=== PATIENT | female | born 1975 | race Caucasian/White ===

== ENCOUNTER → 2017-08-10 11:14 | Outpatient (CLI) | payer BC, SELFPAY ==
--- NOTE | 2017-08-10 11:20 | RAD_ITS ---
STUDY: X-RAY CHEST REASON FOR EXAM: Female, 42 years old. Cough. TECHNIQUE: Frontal and lateral views of the chest. COMPARISON: 01/23/2014 FINDINGS: The lungs are clear and expanded. There is no demonstrated pleural abnormality. Normal size heart. Normal mediastinum and nayeli. Normal visualized pulmonary arteries. Normal visualized aortic arch and descending thoracic aorta. Normal visualized thoracic spine. Normal visualized ribs, clavicles, and shoulders. There is no demonstrated abnormality of the visualized soft tissue structures of the upper abdomen. RAD/Chest PA and Lateral IMPRESSION: Normal x-ray examination of the chest. Electronically Signed: Rivera Young MD at 20:31 EDT , Service support ,
== END ==
PROVIDERS: Family Provider Internal Medicine; PCP Internal Medicine; Visit Provider Nurse Practitioner Gerontology
DX: R09.89 Other specified symptoms and signs involving the circulatory and respiratory systems (principal)
CPT/HCPCS: 71046

== ENCOUNTER → 2017-12-30 15:51 | Outpatient (CLI) | payer BC, SELFPAY | PROVIDERS: Family Provider Internal Medicine; PCP Internal Medicine; Visit Provider Otolaryngology | DX: J32.9 Chronic sinusitis, unspecified (principal) | CPT/HCPCS: 87070; 87077; 87186; 87205 ==

== ENCOUNTER → 2018-02-15 11:14 | Outpatient (CLI) | payer BC, SELFPAY ==
--- NOTE | 2018-02-15 11:17 | RAD_ITS ---
STUDY: X-RAY - PELVIS AND LEFT HIP REASON FOR EXAM: Female, 42 years old. Left hip pain TECHNIQUE: Radiological exam, hip, unilateral, with pelvis when performed; 2 or 3 views. COMPARISON: None. FINDINGS: There is a non-specific bowel gas pattern. Normal visualized soft tissue structures. Normal bilateral iliac wings, sacroiliac joints and visualized sacrum. Normal bilateral superior and inferior pubic rami. Normal pubic symphysis. Normal bilateral ischial tuberosities. Normal visualized femoral head. Normal acetabulum. Normal hip joint. RAD/HIP, UNI W/ Pelvis 2-3 Views IMPRESSION: Normal x-ray examination of the pelvis and hip. Electronically Signed: Sonu Fuentes DO at 11:24 EDT Tel , Service support ,
--- NOTE | 2018-02-15 11:17 | RAD_ITS ---
STUDY: X-RAY - LUMBAR SPINE REASON FOR EXAM: Female, 42 years old. Lower back pain. TECHNIQUE: 5 view(s) of the lumbar spine were obtained. COMPARISON: November 02, 2015 FINDINGS: Normal lumbar lordosis. There is no substantial scoliosis. There is a normal alignment of the vertebrae. There is multilevel endplate spondylosis of the lumbar vertebrae. Normal disc space heights. There are surgical clips within the right upper quadrant suggestive of a prior cholecystectomy. RAD/L/S Spine Min 4 Views IMPRESSION: Mild degenerative changes. Electronically Signed: Leanna Pérez MD at 20:55 EDT Tel , Service support ,
== END ==
PROVIDERS: Family Provider Internal Medicine; PCP Internal Medicine; Referring Provider Nurse Practitioner Gerontology; Visit Provider Nurse Practitioner Gerontology
DX: M54.5 Low back pain (principal); M25.552 Pain in left hip
CPT/HCPCS: 72110; 73502

== ENCOUNTER → 2018-02-25 17:39 | Outpatient (CLI) | payer BC, SELFPAY ==
--- NOTE | 2018-02-25 17:40 | MRI_ITS ---
STUDY: MRI LUMBAR SPINE WITHOUT CONTRAST REASON FOR EXAM: Female, 42 years old. Back pain and left radiculopathy. TECHNIQUE: Standardized fat and water weighted pulse sequences were obtained in the sagittal and axial planes. COMPARISON: None FINDINGS: T12-L1: Normal endplates. Normal disc height, hydration and morphology. Normal bilateral facet joints. Normal central canal and bilateral lateral recesses. Normal bilateral intervertebral neural foramina. Normal lumbar lordosis. There is no substantial scoliosis. Normal conus medullaris that terminates at the L1 level. L1-2: Normal endplates. Normal disc height, hydration and morphology. Normal bilateral facet joints. Normal central canal and bilateral lateral recesses. Normal bilateral intervertebral neural foramina. L2-3: Normal endplates. Normal disc height, hydration and morphology. Normal bilateral facet joints. Normal central canal and bilateral lateral recesses. Normal bilateral intervertebral neural foramina. L3-4: Normal endplates. Normal disc height, hydration and morphology. There is a small left inferior foraminal disc protrusion. No evidence of nerve root displacement. Normal bilateral facet joints. Normal central canal and bilateral lateral recesses. Normal bilateral intervertebral neural foramina. L4-5: Normal endplates. Normal disc height, hydration and morphology. Normal bilateral facet joints. Normal central canal and bilateral lateral recesses. Normal bilateral intervertebral neural foramina. L5-S1: Normal endplates. Normal disc height, hydration and morphology. Normal bilateral facet joints. Normal central canal and bilateral lateral recesses. Normal bilateral intervertebral neural foramina. Normal visualized sacral ala. Normal visualized paraspinous soft tissue structures. MRI/Spine Lumbar (Routine) IMPRESSION: 1. Small L3-4 left foraminal disc protrusion without obvious nerve root displacement. Otherwise normal study. Electronically Signed: Karen Lagos MD at 18:44 EDT Tel , Service support ,
== END ==
PROVIDERS: Family Provider Internal Medicine; PCP Internal Medicine; Referring Provider Internal Medicine; Visit Provider Internal Medicine
DX: M54.16 Radiculopathy, lumbar region (principal)
CPT/HCPCS: 72148

== ENCOUNTER → 2018-05-21 16:45 | Outpatient (CLI) | payer BC, SELFPAY ==
--- OUTSIDE RECORDS SUMMARY | 2018-07-26 07:58 | XMS RPT_ITS | Continuity of Care Document ---
:1975 Author Organization [facility] Address [address] [facility] [address] [place] [address] Phone Care Team Providers Name Role Phone Nancy Lucas DO Unavailable Physical Therapy, [facility] Unavailable Matthew Becker MD Unavailable Rony Lucas Unavailable Cruz Kumari Unavailable Unavailable Long LOFT RIGGER, Sailaja Myrick Unavailable Unavailable Slarb LOFT RIGGER, Nona Unavailable Unavailable Yakelin MCDONALD, Suzy Licona Unavailable Susan Acevedo Unavailable Unavailable Unavailable Unavailable Problems Name Dates Details Abnormal lung sounds (R09.89, 786.7) Status: Active Abnormal lung sounds (R09.89, 786.7) Status: Active Abortions/Miscarriages Comments: 1. Status: Active Acid reflux (K21.9, 530.81) Status: Active Acute asthma exacerbation (Renamed from Asthma with acute exacerbation) (J45.901, 493.92) Status: Active Allergic rhinitis (J30.9, 477.9) Status: Active Blurred vision (H53.8, 368.8) Status: Active BMI 40.0-44.9, adult (Z68.41, V85.41) Status: Active Breast cancer screening (Z12.39, V76.10) Status: Active Section Comments: 1998 Status: Active Chest pain at rest (R07.9, 786.50) Comments: worse with cough, think asthma related Status: Active Cough (R05, 786.2) Status: Active Cough (R05, 786.2) Status: Active Cough (R05, 786.2) Status: Active Decreased range of motion of left lower extremity (M25.662, 719.56) Status: Active Dehydration, moderate (E86.0, 276.51) Status: Active Electrical shock sensation (R20.8, 782.0) Status: Active FAMILY HISTORY OF DIABETES MELLITUS (Z83.3, V18.0) Status: Active Fibromyalgia (M79.7, 729.1) Status: Active Gastroenteritis (K52.9, 558.9) Status: Active Inflammatory polyarthritis (M06.4, 714.9) Comments: dr lepe is rheum holding methotrexate and embrel Status: Active Left hip pain (M25.552, 719.45) Status: Active Leg length discrepancy (M21.70, 736.81) Comments: Left side is shorter Status: Active Low back pain potentially associated with radiculopathy (M54.5, 724.2) Status: Active Lower back pain (M54.5, 724.2) Status: Active Need for prophylactic vaccination and inoculation against influenza (Renamed from Need for immunization against influenza) (Z23, V04.81) Status: Active Neuropathy (G62.9, 355.9) Status: Active Nonsmoker (Z78.9, V49.89) Status: Active 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 Status: Active RA Status: Active Radiculopathy, lumbar region (M54.16, 724.4) Status: Active Recurrent sinus infections (J32.9, 473.9) Status: Active SCREENING FOR HYPERLIPIDEMIA (Renamed from Encounter for screening for lipoid disorders) (Z13.220, V77.91) Status: Active Shortness of breath at rest (R06.02, 786.05) Status: Active Sinus pressure (J34.89, 478.19) Status: Active Sinusitis, acute (J01.90, 461.9) Status: Active SOB (shortness of breath) (R06.02, 786.05) Status: Active Sore throat (J02.9, 462) Status: Active TMJ (dislocation of temporomandibular joint) (S03.00XA, 830.0) Status: Active TMJ (temporomandibular joint disorder) (M26.609, 524.60) Comments: uses mouth mame but chews thru Status: Active Unspecified Diagnosis Status: Active Unspecified Diagnosis Status: Active Vaginal Delivery Comments: Status: Active Vomiting and diarrhea (R11.10, 787.03) Status: Active Wheezing (Renamed from Asthmatic breathing) (R06.2, 786.07) Status: Active Medications Name Dates Details SERGE ALLERGY, 180MG (Oral Tablet) 1 (one) Tablet Tablet qd for 30 days Refills: 0 Ordered:12-Jan-2014 Jenelle Castellon LPN Start : 31-Aug-2013 Active Benzonatate 200 MG Oral Capsule 1 (one) Capsule Capsule PO TID PRN for 0 days Quantity: 21 {Capsule} Refills: 0 Ordered:11-Aug-2017 Sindi Slater Start : 11-Aug-2017 Active Gabapentin 300 MG Oral Capsule 1 (one) Capsule take daily x 3 days then bid for 0 days Quantity: 60 {Capsule} Refills: 0 Ordered:23-Feb-2018 Suzy Hamlin CNP Start : 23-Feb-2018 Active Comments:neuropathic pain G62.9 Oarrs run Sixty Levocetirizine Dihydrochloride 5 MG Oral Tablet 1 (one) Tablet qd for 0 days Quantity: 90 {Tablet} Refills: 3 Ordered:06-Apr-2017 Rachele Lucas DO, DO, Kathleen Start : 06-Apr-2017 Active Medrol 4 MG Oral Tablet Therapy Pack 1 (one) Milligram Milligram TAD for 0 days Quantity: 1 {Package} Refills: 0 Ordered:16-Feb-2018 Sailaja Allan LPN Start : 16-Feb-2018 Active Comments:take with food Methotrexate Sodium 2.5 MG Oral Tablet 6 Tablet once a week for 30 days Quantity: 24 {Tablet} Refills: 3 Ordered:14-Dec-2017 Suzy Hamlin CNP Start : 14-Dec-2017 Active Omeprazole 40 MG Oral Capsule Delayed Release 1 (one) Capsule DR qd for 0 days Quantity: 90 {Capsule} Refills: 2 Ordered:26-Aug-2017 Lance Rachele CAMARA DO, Kathleen Start : 26-Aug-2017 Active Omeprazole 40 MG Oral Capsule Delayed Release 1 (one) Capsule DR qd for 90 days Quantity: 90 {Capsule} Refills: 3 Ordered:26-Aug-2017 Lance CAMARARachele DO, Kathleen Start : 26-Aug-2017 Active PredniSONE 10 MG Oral Tablet 3 (three) Tablet pills for 3 days 2 for 3 days 1 for 3 day with food am for 0 days Quantity: 18 {Tablet} Refills: 0 Ordered:23-Feb-2018 Yakelin HARRYSuzy Start : 23-Feb-2018 Active Comments:with food Augmentin 875-125 MG Oral Tablet 1 (one) Tablet bid for 14 days Quantity: 28 {Tablet} Refills: 0 Ordered:14-Dec-2017 Yakelin HARRYSuzy Start : 14-Dec-2017 End : 28-Dec-2017 Inactive CYMBALTA, 60MG (Oral Capsule Delayed Release Particles) 1 (one) Capsule DR Part Capsule DR Part qd for 30 days Quantity: 30 {Capsule} Refills: 0 Ordered:20-Feb-2015 Karen Madrid MD Start : 02-Oct-2014 End : 01-Nov-2014 Inactive Comments:per vellanki Flonase 50 MCG/ACT Nasal Suspension 2 (two) Puff Puff daily for 0 days Quantity: 1 {Bottle} Refills: 0 Ordered:30-Mar-2017 Nona Stock LPN Start : 03-Feb-2014 End : 30-Mar-2017 Inactive Folic Acid 1 MG Oral Tablet 1 (one) Tablet Tablet qd for 30 days Refills: 0 Ordered:05-Aug-2017 Roserb BERNARD Nona Start : 31-Aug-2013 End : 05-Aug-2017 Inactive GABAPENTIN, 100MG (Oral Capsule) 1 (one) Capsule Capsule bid for 30 days Quantity: 30 {Capsule} Refills: 0 Ordered:20-Feb-2015 Karen Madrid MD Start : 02-Oct-2014 End : 01-Nov-2014 Inactive Comments:per basali LEVOFLOXACIN, 500MG (Oral Tablet) 1 (one) Tablet Tablet qd for 0 days Quantity: 10 {Tablet} Refills: 0 Ordered:20-Feb-2015 STEPHANIE Mahoney Start : 23-Jan-2014 End : 20-Feb-2015 Inactive Methotrexate 2.5 MG Oral Tablet 8 Tablet Tablet q week for 30 days Refills: 0 Ordered:05-Aug-2017 Nona Stock LPN Start : 31-Aug-2013 End : 05-Aug-2017 Inactive Mobic 15 MG Oral Tablet 1 (one) Tablet Tablet bid for 30 days Refills: 0 Ordered:05-Aug-2017 Nona Stock LPN Start : 02-Nov-2015 End : 05-Aug-2017 Inactive Neurontin 300 MG Oral Capsule 1 (one) Capsule Capsule qhs for 5 days then bid for 0 days Quantity: 60 {Capsule} Refills: 3 Ordered:30-Mar-2017 Nona Stock LPN Start : 02-Nov-2015 End : 30-Mar-2017 Inactive Orencia ClickJect 125 MG/ML Subcutaneous Solution Auto-injector 1 (one) Milliliter once a week for 30 days Quantity: 4 {Milliliter} Refills: 3 Ordered:23-Feb-2018 Suzy Hamlin CNP Start : 14-Dec-2017 End : 23-Feb-2018 Inactive OXYCODONE-ACETAMINOPHEN, 5-325MG (Oral Tablet) 1 (one) Tablet Tablet bid for 30 days Quantity: 30 {Tablet} Refills: 0 Ordered:20-Feb-2015 Karen Madrid MD Start : 02-Oct-2014 End : 01-Nov-2014 Inactive Comments:per basali Singulair 10 MG Oral Tablet 1 (one) Tablet Tablet qd for 0 days Quantity: 90 {Tablet} Refills: 0 Ordered:05-Aug-2017 Nona Stock LPN Start : 11-Oct-2014 End : 05-Aug-2017 Inactive Comments:07-14-14 no refills patient needs an appointment for check up TRAMADOL HCL ER, 100MG (Oral Tablet Extended Release 24 Hour) 1 (one) Tablet ER 24HR Tablet ER 24HR tid/prn for 30 days Refills: 0 Ordered:02-Nov-2015 Jenelle Castellon LPN Start : 12-Jan-2014 End : 02-Nov-2015 Inactive Xeljanz 5 MG Oral Tablet 1 (one) Tablet bid for 30 days Quantity: 30 {Tablet} Refills: 0 Ordered:30-Mar-2017 Rachele Lucas DO, DO, Kathleen Start : 30-Mar-2017 End : 29-Apr-2017 Inactive Zithromax Z-Forrest 250 MG Oral Tablet 1 (one) Tablet TAD for 0 days Quantity: 1 {Package} Refills: 0 Ordered:10-Aug-2017 Susan Acevedo Start : 05-Aug-2017 End : 10-Aug-2017 Inactive ENBREL, 50MG/ML (Subcutaneous Solution Prefilled Syringe) 1 (one) Solution Solution q week for 30 days Refills: 0 Ordered:05-Jun-2015 Montrell WAGNERNona Start : 12-Jan-2014 End : 05-Jun-2015 Discontinued ProAir HFA 108 (90 Base) MCG/ACT Inhalation Aerosol Solution 2 (two) Puff tid for 0 days Quantity: 1 {Inhaler} Refills: 0 Ordered:14-Dec-2017 Sindi Slater Start : 05-Aug-2017 End : 14-Dec-2017 Discontinued Allergies and Adverse Reactions Name Dates Details Codeine/Codeine Derivatives (Allergy) Status: Active Comments: itch Past Medical History Name Dates Details BMI 40.0-44.9, adult (Z68.41, V85.41) Status: Inactive as of 06-May-2017 Breast pain (N64.4, 611.71) Comments: primary etiology? vs fibro related? Status: Inactive as of 02-Nov-2015 Flu-like symptoms (R68.89, 780.99) Status: Inactive as of 06-May-2017 Flu-like symptoms (R68.89, 780.99) Status: Inactive as of 02-Nov-2015 Hives (L50.9, 708.9) Comments: as long as takes antihistamine Status: Inactive as of 02-Nov-2015 Sciatica of left side (M54.32, 724.3) Status: Inactive as of 05-Aug-2017 Unspecified bacterial pneumonia (J15.9, 482.9) Status: Inactive as of 14-Jul-2014 Procedures Procedure Dates Details Annual Eye Exam Completed Comments: 2 yrs Delivery Completed Cholecystectomy Completed Colonoscopy, Screening Completed Comments: 5yrs Mammogram, Screening Completed Comments: 10yrs Pap Smear Completed Comments: 3 yrs Rhino and sinoplasty Completed Comments: 06/2017 dr felix Date Value Details 15-Feb-2018 HIP, UNI W/ Pelvis 2-3 Views Result: Comments: See Note; NOTES: [facility] Imaging Services [address] [place] [address] HIP, UNI W/ Pelvis 2-3 Views MR#: [id number] Acct: [id number] Name: MANDA JEFFERS Rep #: [id number] : 1975 F 42 From: Sonu Fuentes DO PCP: Nancy Lucas DO Status: REG CLI Study: HIP, UNI W/ Pelvis 2-3 Views Date of Exam: 02/15/18 Exam# [id number] Ordering Dr: Jenelle London STUDY: X-RAY - PELVIS AND LEFT HIP REASON FOR EXAM: Female, 42 years old. Left hip pain TECHNIQUE: Radiological exam, hip, unilateral, with pelvis when performed; 2 or 3 views. COMPARISON: None. ____ FINDINGS: There is a non-specific bowel gas pattern. Normal visualized soft tissue structures. Normal bilateral iliac wings, sacroiliac joints and visualized sacrum. No rmal bilateral superior and inferior pubic rami. Normal pubic symphysis. Normal bilateral ischial tuberosities. Normal visualized femoral head. Normal acetabulum. Normal hip joint. RAD/HIP, UNI W/ Pelvis 2-3 Views IMPRESSION: Normal x-ray examination of the pelvis and hip. Electronically Signed: Sonu Fuentes DO at 11:24 EDT Tel , Service support , CC: NOLA London; Nancy Lucas DO Program Lead: Signed 15-Feb-2018 L/S Spine Min 4 Views Result: Comments: See Note; NOTES: [facility] Imaging Services [address] [place] [address] L/S Spine Min 4 Views MR#: [id number] Acct: [id number] Name: MANDA JEFFERS Rep #: [id number] : 1975 F 42 From: Leanna Pérez MD PCP: Nancy Lucas DO Status: REG CLI Study: L/S Spine Min 4 Views Date of Exam: 02/15/18 Exam# [id number] Ordering Dr: Jenelle London STUDY: X-RA Y - LUMBAR SPINE REASON FOR EXAM: Female, 42 years old. Lower back pain. TECHNIQUE: 5 view(s) of the lumbar spine were obtained. COMPARISON: November 02, 2015 FINDINGS : Normal lumbar lordosis. There is no substantial scoliosis. There is a normal alignment of the vertebrae. There is multilevel endplate spondylosis of the lumbar vertebrae. Normal disc space heights. There are surgical clips within the right upper quadrant suggestive of a prior cholecystectomy. RAD/L/S Spine Min 4 Views IMPRESSION: Mild degene rative changes. Electronically Signed: Leanna Pérez MD at 20:55 EDT Tel , Service support , CC: NOLA London; Nancy Lucas DO Program Lead: Signed 10-Aug-2017 Chest PA and Lateral Result: Comments: See Note; NOTES: [facility] Imaging Services [address] [place] [address] Chest PA and Lateral MR#: [id number] Acct: [id number] Name: MANDA JEFFERS Rep #: [id number] : 1975 F 42 From: Rivera Young MD PCP: Nancy Lucas DO Status: REG CLI Study: Chest PA and Lateral Date of Exam: 08/10/17 Exam# [id number] Ordering Dr: Jenelle London STUDY: X-R AY CHEST REASON FOR EXAM: Female, 42 years old. Cough. TECHNIQUE: Frontal and lateral views of the chest. COMPARISON: 01/23/2014 FINDINGS: The lungs are clear and expanded. There is no demonstrated pleural abnormality. Normal size heart. Normal mediastinum and nayeli. Normal visualized pulmonary arteries. Normal visualized aortic arch and descending thoracic aort a. Normal visualized thoracic spine. Normal visualized ribs, clavicles, and shoulders. There is no demonstrated abnormality of the visualized soft tissue structures of the upper abdomen. RAD/Chest PA and Lateral IMPRESSION: Normal x-ray examination of the chest. Electronically Signed: Rivera Young MD at 20:31 EDT Tel , Service support , CC: NOLA [place]; Nancy Lucas DO Program Lead: Signed 14-Feb-2016 CTA Chest W/WO Contrast Result: Comments: See Note; NOTES: [facility] Imaging Services [address] [place] [id number] [place] [address] 4d CTA Chest W/WO Contrast MR#: [id number] Acct: [id number] Name: MANDA JEFFERS Rep #: [id number] : 1975 F 40 From: Chele Kulkarni DO PCP: Nancy Lucas DO Status: REG CLI Study: CTA Chest W/WO Contrast Date of Exam: 02/14/16 Exam# [id number] Ordering Dr: Nancy Lucas DO STUDY: CTA CHEST REASON FOR EXAM: Female, 40 years old. Shortness of breath since last night. RADIATION DOSAGE (If Supplied By Facility): CTDIvol = ( 13.29 ) mGy, DLP = ( 762.64 ) mGycm TECHNIQUE : The examination was performed with the intravenous administration of 100 ml of Isovue 370 contrast material. Post-processing of the angiographic images was performed, with multiplanar reformation and 3D reconstruction. Individualized dose optimization techniques were used for this CT. COMPARISON: Chest, January 23, 2014. FINDINGS: Normal enhancement of the m ain pulmonary artery and right and left pulmonary arteries. Normal enhancement of the bilateral peripheral pulmonary arteries. There is no demonstrated pulmonary embolism. Normal thoracic aorta and vis ualized great vessels. There is no demonstrated aortic dissection. Normal heart and pericardium. Normal mediastinum. Normal hilar regions. Normal visualized trachea and bronchi. The lungs are well e xpanded. Normal pulmonary parenchyma. Normal pleura. Normal chest wall structures. Normal osseous structures. Normal visualized upper abdomen. 025 CT/CTA Chest W/WO Contrast IMPRESSION: Normal CTA chest examination, without a demonstrated pulmonary embolism or arterial dissection. Electronically Signed: Chele Kulkarni DO at 13:32 EDT Tel [phone], Service support [phone], CC: Nancy Lucas DO Program Lead: Signed 02-Nov-2015 Lumbar Spine 2 or 3 Views Result: Comments: See Note; NOTES: [facility] Imaging Services [address] [place] [address] [place] 4d Lumbar Spine 2 or 3 Views MR#: [id number] Acct: [id number] Name: Alana LOPEZMANDA WARE Elen Rep #: [id number] : 1975 F 40 From: Lubna Husain MD PCP: Nancy Lucas DO Status: REG CLI Study: Lumbar Spine 2 or 3 Views Date of Exam: 11/02/15 Exam# [id number] Ordering Dr: Nancy Lucas DO STUDY: X-RAY - LUMBAR SPINE REASON FOR EXAM: Female, 40 years old. Twisted back with exercise in 2 weeks ago left-sided low back pain TECHNIQUE: 3 view(s) of the lumbar spi ne were obtained. COMPARISON: None FINDINGS: Normal lumbar lordosis. There is no substantial scoliosis. There is a normal alignment of the vertebrae. There i s mild multilevel spondylosis. The disc are relatively maintained. There are surgical clips in right upper quadrant status post cholecystectomy. There is no apparent acute loss of height or alignment. There is visualized degenerative change in the bilateral SI joints. There is abundant stool in the colon. IMPRESSION: Degenerative change in the lumbar spine. No evidence of an acute fracture. Electronically Signed: Lubna Husain MD at 16:25 EDT Tel , Service support [phone], RAD/Lumba r Spine 2 or 3 Views IMPRESSION: Degenerative change in the lumbar spine. No evidence of an acute fracture. Electronically Signed: Lubna Husain MD at 16:25 EDT Tel , Serv ice support [phone], CC: Nancy Lucas DO Program Lead: Signed 10-Oct-2014 Knee 4 or More Views Result: Comments: See Note; NOTES: [facility] Imaging Services [address] [place], [place] [id number] Radiology Report MR#: [id number] Acct: [id number] Name: MANDA JEFFERS Rep #: [id number] : 1975 F 39 From: Amarjit Patel MD PCP: Nancy Lucas DO Status: REG CLI Study: Knee 4 or More Views Date of Exam: 10/10/14 Exam# [id number] Ordering Dr: Georgette Kerr MD STUDY: X-RAY - LEFT KNEE REASON FOR EXAM: Female, 39 years old. Pain. TECHNIQUE: 4 view(s) of the knee. COMPARISON: None. FINDINGS: Normal visualized distal femur. Normal visualized proximal tibia and fibula. Normal proximal tibiofibular articulation. There is mild degenerative arthrosis of the medial femorotibial compartment. Normal lateral femorotibi al compartment. Normal patellofemoral articulation. The soft tissue structures are unremarkable. IMPRESSION: Degenerative arthrosis. Electronically Signed: Amarjit Patel MD at 16:09 EDT Tel [phone], Service support [phone], RAD/Knee 4 or More Views IMPRESSION: Degenerative arthrosis. El ectronically Signed: Amarjit Patel MD at 16:09 EDT Tel [phone], Service support [phone], CC: Nancy Lucas DO; Georgette Kerr MD Program Lead: Signed 10-Oct-2014 Knee 4 or More Views Result: Comments: See Note; NOTES: [facility] Imaging Services [address] [place] [address] Radiology Report MR#: [id number] Acct: [id number] Name: MANDA JEFFERS Rep #: [id number] : 1975 F 39 From: Amarjit Patel MD PCP: Nancy Lucas DO Status: REG CLI Study: Knee 4 or More Views Date of Exam: 10/10/14 Exam# [id number] Ordering Dr: Georgette Kerr MD STUDY: X-RAY - RIGHT KNEE REASON FOR EXAM: Female, 39 years old. Knee pain. TECHNIQUE: 4 view(s) of the knee. COMPARISON: None. FINDINGS: Normal visualized distal femur. Normal visualized proximal tibia and fibula. Normal proximal tibiofibular articulation. Normal medial femorotibial compartment. Normal lateral femorotibial compartment. Normal patellof emoral articulation. The soft tissue structures are unremarkable. IMPRESSION: Normal x-ray examination of the knee. Electronically Signed: Amarjit Patel MD at 16:09 EDT Tel [phone], Service support [phone], RAD/Knee 4 or More Views IMPRESSION: Normal x-ray examination of the knee. Electr onically Signed: Amarjit Patel MD at 16:09 EDT Tel [phone], Service support [phone], CC: Nancy Lucas DO; Georgette Kerr MD Program Lead: Signed 09-Oct-2014 Brain W/WO Contrast Result: Comments: See Note; NOTES: [facility] Imaging Services [address] [place] [address] MRI Report MR#: [id number] Acct: [id number] Name: MANDA JEFFERS Rep #: [id number] : 1975 F 39 From: Kel Vasquez DO PCP: Nancy Lucas DO Status: REG CLI Study: Brain W/WO Contrast Date of Exam: 10/09/14 Exam# [id number] Ordering Dr: Nancy Lucas DO STUDY : MRI BRAIN WITH AND WITHOUT CONTRAST REASON FOR EXAM: Female, 39 years old. The patient presents with a history of headaches with full-body neuropathy with reported vision abnorma lities. TECHNIQUE: The following pulse sequences were obtained: Sagittal: T1; axial: T1 pre-and postcontrast, T2, FLAIR, DWI; coronal: T1 postcontrast, T2. 10 ml of Gadavist contrast material was ad ministered intravenously for the contrast portion of the examination. COMPARISON: None. FINDINGS: Normal size of the ventricles and extra-axial spaces for the patient's age. Normal white matter tracts of the supratentorial brain. There is no evidence for recent intracranial ischemia or other cause of cytotoxic edema on diffusion weighted imaging (DWI). The re are no demyelinating plagues of the supratentorial brain, brainstem or cerebellum. There are no findings suspicious for multiple sclerosis (MS). Normal bilateral basal ganglia. Normal thalami. Th ere is no extra-axial fluid accumulation. Normal flow voids within the major intracranial circulation suggesting patency by spin echo criteria. Normal venous enhancement. There is no enhancing intr a-axial or extra-axial abnormality. There is enlargement of the sella turcica with increased CSF within the sella and flattening of the pituitary gland consistent with an empty sellar syndr ome (sagittal T1 series 3, image 12).. Normal infundibular stalk, hypothalamus, and optic chiasm. Normal tectal plate and pineal gland. Normal midbrain, mekhi and medulla. There is 4 mm of t onsillar ectopia of the right cerebellar hemisphere with 2 mm of tonsillar ectopia of the left cerebellar tonsil (sagittal T1 series 3, image 12 and 13). There is no distortion brainstem cervical cor d junction. The right cerebellar tonsillar ectopia is at the upper limits of normal. Normal basal cisterns. Normal bilateral temporal bones. Normal bilateral internal auditory canals. No demonstrat ed orbital abnormality, within the constraints of a routine brain study. Normal visualized paranasal sinuses. Normal calvarium and skull base. Normal visualized soft tissue structures. Normal visualiz ed upper cervical spine. IMPRESSION: 1. Normal MRI the brain. 2. No demonstrated demyelinating process. 3. 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 Electronically Signed: Kel Vasquez DO at 11:41 EDT Tel , Service support [phone], CC: Nancy Lucas DO Program Lead: Signed 08-Jun-2014 Spine Cervical (Routine) Result: Comments: See Note; NOTES: [facility] Imaging Services [address] [place] [id number] MRI Report MR#: [id number] Acct: [id number] Name: HEIDYMANDA Elen Rep #: [id number] OB: 1975 F 38 From: Vladimir Llamas MD PCP: Nancy Lucas DO Status: REG CLI Study: Spine Cervical (Routine) Date of Exam: 06/08/14 Exam# [id number] Ordering Dr: Henrique Cadena MD STUDY: MR I CERVICAL SPINE WITHOUT CONTRAST REASON FOR EXAM: Female, 38 years old. Chronic neck and rt arm pain, hx RA TECHNIQUE: Standardized fat and water weighted pulse sequences were obtained in the sag ittal and axial planes. COMPARISON: Prior x-rays of the cervical spine on 05-29-14 FINDINGS: Normal foramen magnum and brainstem-cervical cord junction. Normal craniovertebral junction. Normal anterior atlantoaxial articulation. Normal odontoid process. There is straightening of the normal cervical lordosis. Normal vertebral bodies and posterior osseous e lements. C2-3: Normal endplates. Normal disc height, signal and morphology. Normal central canal and intervertebral neural foramina. C3-4: Normal endplates. Normal disc height, signal and morpholog y. Normal central canal and intervertebral neural foramina. C4-5: Normal endplates. Normal disc height, signal and morphology. Normal central canal and intervertebral neural foramina. C5-6: Normal endplates. There is a moderate annular bulge. Normal central canal and intervertebral neural foramina. C6-7: Normal endplates. Normal disc height, signal and morphology. Normal central canal and in tervertebral neural foramina. C7-T1: Normal endplates. Normal disc height, signal and morphology. Normal central canal and intervertebral neural foramina except for right perineural cyst. Normal c ervical cord. Normal visualized soft tissue structures. IMPRESSION: Straightening of the normal lordosis. C5-6 moderate annular bulge. C7-T1 right perineura l cyst Electronically Signed: Vladimir Llamas MD, FACR at 20:18 EST , Service support [phone], CC: Henrique Cadena MD; Nancy Lucas DO Program Lead: Signed 29-May-2014 Cerv Spine 2 or 3 Views Result: Comments: See Note; NOTES: [facility] Imaging Services [address] [place] [address] Radiology Report MR#: [id number] Acct: [id number] Name: MANDA JEFFERS Rep #: [id number] : 1975 F 38 From: Kaycee Suero MD PCP: Nancy Lucas DO Status: REG CLI Study: Cerv Spine 2 or 3 Views Date of Exam: 05/29/14 Exam# [id number] Ordering Dr: Henrique Cadena MD STUDY: X-RAY - CERVICAL SPINE REASON FOR EXAM: Female, 38 years old chronic neck pain. TECHNIQUE: 4 view(s) of the cervical spine were obtained. COMPARISON: None __ FINDINGS: Normal anterior atlantoaxial articulation. Normal odontoid process. There is straightening of the normal cervical lordosis. Normal vertebral bodies and endplates. Normal disc space he ights. Normal visualized intervertebral neuroforamina. The soft tissue structures are unremarkable. IMPRESSION: No acute fracture or subluxation in the cervica l spine. Electronically Signed: Kaycee Suero MD at 22:44 EST Tel , Service support [phone], CC: Henrique Cadena MD; Nancy Lucas DO Program Lead: Signed 23-Jan-2014 Chest PA and Lateral Result: Comments: See Note; NOTES: [facility] Imaging Services [address] [place] [address] Radiology Report MR#: [id number] Acct: [id number] Name: MANDA JEFFERS Rep #: [id number] : 1975 F 38 From: Amarjit Patel MD PCP: Nancy Lucas DO Status: REG CLI Study: Chest PA and Lateral Date of Exam: 01/23/14 Exam# [id number] Ordering Dr: Micki Garcia DO STUDY : X-RAY CHEST REASON FOR EXAM: Female, 38 years old. 9 day history of cough. TECHNIQUE: PA and lateral views of the chest. COMPARISON: Comparison is made with prior study dated October 12, 2013. ___ FINDINGS: Calcified old granulomatous disease. There is no demonstrated pleural abnormality. Normal size heart. Normal mediastinum and nayeli. Normal visualized pu lmonary arteries. Normal visualized aortic arch and descending thoracic aorta. Normal visualized thoracic spine. Normal visualized ribs, clavicles, and shoulders. There is no demonstrated abnormal ity of the visualized soft tissue structures of the upper abdomen. IMPRESSION: Normal x-ray examination of the chest. Electronically Signed: Amarjit Coronel i, MD at 14:51 EDT Tel [phone], Service support [phone], CC: Micki Garcia DO; Nancy Lucas DO Program Lead: Signed 12-Jan-2014 Jewell Chappell Digital & CAD Result: Comments: See Note; NOTES: [facility] Imaging Services [address] [place] [id number] Breast Imaging Report MR#: [id number] Acct: [id number] Name: MANDA JEFFERS Rep #: [id number] : 1975 F 38 From: Amarjit Patel MD PCP: Nancy Lucas DO Status: REG CLI Exam# [id number] Ordering Dr: Nancy Lucas DO MAMMOGRAPHY - BILATERAL SCREENING REASON FOR EXAM: Female, 38 years old. Routine annual screening examination. PERTINENT HISTORY: Non-contributory. TECHNIQUE: Digital examination. Mediolateral oblique (MLO) and craniocaudad (CC) views of perico th breasts were obtained. CAD: CAD was performed on this study. COMPARISON: None. Baseline examination. FINDINGS: Breast Composition: There are scattered areas of fibroglandular density. There are no dominant masses or suspicious calcifications. There is asymmetry of breast tissue where more breast tissue is seen in the right breast as compared to the lef t side. No other significant abnormalities are identified. IMPRESSION: Negative screening mammogram. Yearly followup recommended. (A) ASSESSMENT CATEGORY: BIRADS Category 2: Benign finding(s). A letter regarding these results will be sent to the patient by the facility within 30 days. Approximately 10% of breast cance rs are not detected by mammography. A normal mammogram should not delay biopsy of a clinically suspicious abnormality. Electronically Signed: Amarjit Patel MD at 9:46 EDT Tel [phone], Service support [phone], CC: Nancy Lucas DO Program Lead: Signed Family History Unknown Family Member Name Dates Details Migraine Headache Comments: Mother. Status: Active RA Comments: Sister. Status: Active Social History Name Dates Details Caffeine Use Comments: qd Status: Active Exercise History: Exercises occasionally. Status: Active Living Situation: Lives with spouse. Status: Active No Drug Use Status: Active Non Drinker/No Alcohol Use Status: Active Number of Child (age 0-17) Dependents: 2. Status: Active Pets/Animals: Dog. Status: Active Tobacco use: Former smoker. Status: Active Smoking Status Name Dates Details Former smoker Vital Signs Date Test Result Details [id number]-Nil-[id number]:37 Comments: pain 6-7 on avg and up to 8 - high pain tolerance Temperature 97.5 f Comments: Method: Temporal Pulse 91 /min Comments: Pattern: Regular Respiration Rate 16 /min Comments: Pattern: Unlabored O2 SAT 98 % Comments: Room air BP Systolic 134 mm[Hg] Comments: Patient Position: Sitting; Cuff Location: Left Arm; Cuff Size: Standard BP Diastolic 76 mm[Hg] Comments: Patient Position: Sitting; Cuff Location: Left Arm; Cuff Size: Standard Weight 242.5 lb Height 62 in Body Mass Index Calculated 44.35 kg/m2 Body Surface Area Calculated 2.07 m2 :43 Comments: Pulse recheck 113-in pain Temperature 98.9 f Comments: Method: Temporal Pulse 138 /min Comments: Pattern: Regular Respiration Rate 16 /min Comments: Pattern: Unlabored O2 SAT 98 % Comments: Room air BP Systolic 142 mm[Hg] Comments: Patient Position: Sitting; Cuff Location: Left Arm; Cuff Size: Standard BP Diastolic 76 mm[Hg] Comments: Patient Position: Sitting; Cuff Location: Left Arm; Cuff Size: Standard Weight 242.5 lb Height 62 in Body Mass Index Calculated 44.35 kg/m2 Body Surface Area Calculated 2.07 m2 :04 Temperature 98.8 f Comments: Method: Temporal Pulse 73 /min Comments: Pattern: Regular Respiration Rate 20 /min Comments: Pattern: Unlabored O2 SAT 97 % Comments: Room air BP Systolic 138 mm[Hg] Comments: Patient Position: Sitting; Cuff Location: Left Arm; Cuff Size: Standard BP Diastolic 86 mm[Hg] Comments: Patient Position: Sitting; Cuff Location: Left Arm; Cuff Size: Standard Weight 242.5 lb Height 62 in Body Mass Index Calculated 44.35 kg/m2 Body Surface Area Calculated 2.07 m2 :20 Temperature 97.5 f Pulse 91 /min Comments: Pattern: Regular Respiration Rate 18 /min Comments: Pattern: Unlabored O2 SAT 96 % Comments: Room air BP Systolic 140 mm[Hg] Comments: Patient Position: Sitting; Cuff Location: Left Arm; Cuff Size: Standard BP Diastolic 84 mm[Hg] Comments: Patient Position: Sitting; Cuff Location: Left Arm; Cuff Size: Standard Weight 234 lb Height 63 in Body Mass Index Calculated 41.45 kg/m2 Body Surface Area Calculated 2.07 m2 :39 Temperature 98.3 f Comments: Method: Temporal Pulse 85 /min Comments: Pattern: Regular Respiration Rate 16 /min Comments: Pattern: Unlabored O2 SAT 98 % Comments: Room air BP Systolic 115 mm[Hg] Comments: Patient Position: Sitting; Cuff Location: Left Arm; Cuff Size: Standard BP Diastolic 70 mm[Hg] Comments: Patient Position: Sitting; Cuff Location: Left Arm; Cuff Size: Standard Weight 234 lb Height 63 in Body Mass Index Calculated 41.45 kg/m2 Body Surface Area Calculated 2.07 m2 :02 Temperature 98.2 f Pulse 68 /min Comments: Pattern: Regular Respiration Rate 17 /min Comments: Pattern: Unlabored O2 SAT 98 % Comments: Room air BP Systolic 132 mm[Hg] Comments: Patient Position: Sitting; Cuff Location: Left Arm; Cuff Size: Standard BP Diastolic 88 mm[Hg] Comments: Patient Position: Sitting; Cuff Location: Left Arm; Cuff Size: Standard Weight 234 lb Height 63 in Body Mass Index Calculated 41.45 kg/m2 Body Surface Area Calculated 2.07 m2 :03 Temperature 97.8 f Pulse 88 /min Comments: Pattern: Regular Respiration Rate 16 /min Comments: Pattern: Unlabored O2 SAT 98 % Comments: Room air BP Systolic 132 mm[Hg] Comments: Patient Position: Sitting; Cuff Location: Left Arm; Cuff Size: Standard BP Diastolic 84 mm[Hg] Comments: Patient Position: Sitting; Cuff Location: Left Arm; Cuff Size: Standard Weight 234 lb Height 63 in Body Mass Index Calculated 41.45 kg/m2 Body Surface Area Calculated 2.07 m2 :07 Temperature 97.8 f Pulse 112 /min Comments: Pattern: Regular Respiration Rate 16 /min Comments: Pattern: Unlabored O2 SAT 97 % Comments: Room air BP Systolic 132 mm[Hg] Comments: Patient Position: Sitting; Cuff Location: Left Arm; Cuff Size: Standard BP Diastolic 84 mm[Hg] Comments: Patient Position: Sitting; Cuff Location: Left Arm; Cuff Size: Standard Weight 230.25 lb Height 63 in Body Mass Index Calculated 40.79 kg/m2 Body Surface Area Calculated 2.05 m2 :03 Temperature 97.3 f Comments: Method: Temporal Pulse 96 /min Comments: Pattern: Regular Respiration Rate 18 /min Comments: Pattern: Unlabored O2 SAT 98 % Comments: Room air BP Systolic 162 mm[Hg] Comments: Patient Position: Sitting; Cuff Location: Left Arm; Cuff Size: Large BP Diastolic 108 mm[Hg] Comments: Patient Position: Sitting; Cuff Location: Left Arm; Cuff Size: Large Weight 233.5 lb Height 63 in Body Mass Index Calculated 41.36 kg/m2 Body Surface Area Calculated 2.07 m2 :09 Pulse 81 /min Comments: Pattern: Regular O2 SAT 96 % Comments: Room air BP Systolic 122 mm[Hg] Comments: Patient Position: Sitting; Cuff Location: Left Arm; Cuff Size: Standard BP Diastolic 78 mm[Hg] Comments: Patient Position: Sitting; Cuff Location: Left Arm; Cuff Size: Standard Weight 233.5 lb Height 63 in Body Mass Index Calculated 41.36 kg/m2 Body Surface Area Calculated 2.07 m2 :48 Pulse 89 /min Comments: Pattern: Regular O2 SAT 96 % Comments: Room air BP Systolic 122 mm[Hg] BP Diastolic 82 mm[Hg] Weight 235.125 lb Height 63 in Body Mass Index Calculated 41.65 kg/m2 Body Surface Area Calculated 2.07 m2 :01 Temperature 97.8 f Pulse 111 /min Comments: Pattern: Regular Respiration Rate 18 /min Comments: Pattern: Unlabored O2 SAT 98 % Comments: Room air BP Systolic 112 mm[Hg] Comments: Patient Position: Sitting; Cuff Location: Left Arm; Cuff Size: Standard BP Diastolic 78 mm[Hg] Comments: Patient Position: Sitting; Cuff Location: Left Arm; Cuff Size: Standard Weight 231.375 lb Height 63 in Body Mass Index Calculated 40.99 kg/m2 Body Surface Area Calculated 2.06 m2 :00 Pulse 101 /min Comments: Pattern: Regular Respiration Rate 18 /min Comments: Pattern: Unlabored O2 SAT 98 % Comments: Room air BP Systolic 120 mm[Hg] Comments: Patient Position: Sitting; Cuff Location: Left Arm; Cuff Size: Standard BP Diastolic 62 mm[Hg] Comments: Patient Position: Sitting; Cuff Location: Left Arm; Cuff Size: Standard Weight 227.3125 lb Height 63 in Body Mass Index Calculated 40.27 kg/m2 Body Surface Area Calculated 2.04 m2 :08 Temperature 97.9 f Comments: Method: Tympanic Pulse 68 /min Comments: Pattern: Regular Respiration Rate 18 /min Comments: Pattern: Unlabored O2 SAT 98 % Comments: Room air BP Systolic 138 mm[Hg] Comments: Patient Position: Sitting; Cuff Location: Left Arm; Cuff Size: Standard BP Diastolic 78 mm[Hg] Comments: Patient Position: Sitting; Cuff Location: Left Arm; Cuff Size: Standard Weight 227.3125 lb Height 63 in Body Mass Index Calculated 40.27 kg/m2 Body Surface Area Calculated 2.04 m2 :07 Pulse 100 /min Comments: Pattern: Regular Respiration Rate 18 /min O2 SAT 97 % Comments: Room air BP Systolic 126 mm[Hg] Comments: Patient Position: Sitting; Cuff Location: Left Arm; Cuff Size: Standard BP Diastolic 76 mm[Hg] Comments: Patient Position: Sitting; Cuff Location: Left Arm; Cuff Size: Standard Weight 227.4375 lb Height 63 in Body Mass Index Calculated 40.29 kg/m2 Body Surface Area Calculated 2.04 m2 :38 Temperature 97.7 f Comments: Method: Oral Pulse 68 /min Comments: Pattern: Regular Respiration Rate 18 /min Comments: Pattern: Unlabored O2 SAT 97 % Comments: Room air BP Systolic 120 mm[Hg] Comments: Patient Position: Sitting; Cuff Location: Left Arm; Cuff Size: Standard BP Diastolic 78 mm[Hg] Comments: Patient Position: Sitting; Cuff Location: Left Arm; Cuff Size: Standard Weight 227.4375 lb Height 63 in Body Mass Index Calculated 40.29 kg/m2 Body Surface Area Calculated 2.04 m2 :44 Pulse 75 /min Comments: Pattern: Regular Respiration Rate 18 /min Comments: Pattern: Unlabored O2 SAT 98 % Comments: Room air BP Systolic 118 mm[Hg] Comments: Patient Position: Sitting; Cuff Location: Left Arm; Cuff Size: Standard BP Diastolic 78 mm[Hg] Comments: Patient Position: Sitting; Cuff Location: Left Arm; Cuff Size: Standard Weight 227.4375 lb Height 63 in Body Mass Index Calculated 40.29 kg/m2 Body Surface Area Calculated 2.04 m2 :50 Temperature 98.5 f Comments: Method: Oral Pulse 103 /min Comments: Pattern: Regular Respiration Rate 20 /min Comments: Pattern: Unlabored O2 SAT 98 % Comments: Room air BP Systolic 132 mm[Hg] Comments: Patient Position: Sitting; Cuff Location: Left Arm; Cuff Size: Large BP Diastolic 88 mm[Hg] Comments: Patient Position: Sitting; Cuff Location: Left Arm; Cuff Size: Large Weight 229.0625 lb Height 63 in Body Mass Index Calculated 40.58 kg/m2 Body Surface Area Calculated 2.05 m2 Results Date Description Value Details :20 Culture, Nose Comments: [facility] [address] [place], [place], [id number] CUN See Note (Normal) Comments: Gram StainGram Stain 1+ Epithelial cells No White Blood Cells No organisms seen Nasoph. CultClinical correlation necessary, Possible skin contamination. ORGANISM 1: Staphylococcus hominis hominisAm ount Growth Rare Staphylococcus hominis hominis: REACTION Benzylpenicillin NF 0.25 R Cefoxitin *NF + Cli ndamycin $$ <=0.25 R Inducable Clindamycin Resistan + Erythromycin $ >=8 R Gentamicin $ <=0.5 S Levofloxacin $ <=0.12 S Oxacillin NF <=0.25 R Tigecycline $$$$ <=0.12 S Rifampin $$ <=0.5 S Tetracycline NF >=16 R Vancomycin $ <=0.5 S(NF) indicates non- formulary drug at [facility]. Approval by Infectious Disease Specialist required before non- formulary drugs may be ordered and/or dispensed. * CLSI guidelines does not recommend testing of cephalosporins. This inte rpretation is deduced from Beta-lactam/penicillin results. 70-Rco-30141:30 BRICE CULTURE-OTHER ([id number]) Comments: PATIENT NOT FASTINGPERFORMED BY: [facility] Xpkppn2951 [facility] [id number] Information: THROAT SRC:TH Result 1 RRF (Normal) Comments: Routine respiratory nicole Upper Respiratory Culture Final report (Normal) 46-Ymj-416277:01 CBC W/Diff, Automated Comments: [facility] [address] [place], [place], [phone] Absolute Lymph 2.10 {X10_3/ul} (Normal) Range: 0.83-4.51 Absolute Neut 4.3 {X10_3/uL} (Normal) Range: 2.0-7.7 IM GRAN % 0.300 % (Normal) Range: 0.0-0.9 Comments: IG% - Immature Granulocytes (promyelocytes, myelocytes andmetamyelocytes) > 1% indicates that a LEFT SHIFT is Present. BASO% 0.4 % (Normal) Range: 0-1 EO% 1.8 % (Normal) Range: 0-5 MONO% 8.4 % (Normal) Range: 0-10 LY% 29.0 % (Normal) Range: 19-41 NEUT% 60.1 % (Normal) Range: 47-70 MPV 10.4 fL (Normal) Range: 6.2-12.0 PLT 385 K/mm3 (Normal) Range: 150-450 RDW SD 55.6 fL (Abnormal) Range: 35.1-43.9 RDW CV 17.7 % (Abnormal) Range: 11.6-14.6 MCHC 31.1 {g/gl} (Abnormal) Range: 32-36 MCH 26.9 pg (Abnormal) Range: 27.0-32.0 MCV 86.8 fL (Normal) Range: 81-99 HCT 38.0 % (Normal) Range: 37-47 HGB 11.8 g/dL (Abnormal) Range: 12.0-15.0 RBC 4.38 {M/mm3} (Normal) Range: 4.2-5.4 WBC 7.2 K/mm3 (Normal) Range: 4.4-11.0 94-Oqg-118595:01 Comprehensive Metabolic Profil Comments: [facility] [address] [place], [address] GAP 10 (Normal) Range: 5-15 CO2 23.0 mmol/L (Normal) Range: 21.0-32.0 CL 105 mmol/L (Normal) Range: 98-107 K 3.6 mmol/L (Normal) Range: 3.5-5.1 NA 138 mmol/L (Normal) Range: 136-145 T BILI 0.30 mg/dL (Normal) Range: 0.20-1.00 ALT 37 U/L (Normal) Range: 12-78 ALK P 101 U/L (Normal) Range: 45-117 AST 23 U/L (Normal) Range: 15-37 CA 8.7 mg/dL (Normal) Range: 8.5-10.1 A/G 1.0 {RATIO} (Normal) Range: 0.9-2.4 GLOB 3.8 g/dL (Abnormal) Range: 2.3-3.5 ALB 3.8 g/dL (Normal) Range: 3.4-5.0 T PROT 7.6 g/dL (Normal) Range: 6.4-8.2 BUN/CRE 21.7 {RATIO} (Abnormal) Range: 10-20 EST GFR - AA 111 mL/min (Normal) Comments: GFR Calc EST GFR 91 mL/min (Normal) Comments: Non- GFR Calc CREAT,SERUM 0.74 mg/dL (Normal) Range: 0.55-1.02 Comments: The validity of the calculated GFR AND GFRAA in patients over70 years has not been determined. Clinical correlation isessential. BUN 16 mg/dL (Normal) Range: 7-18 GLU 74 mg/dL (Normal) Range: 70-110 55-Deb-445165:07 D-Dimer Quantitative (DVT/PE) Comments: Order Date: 02/14/16Order Info: [id number] - D-DIMEROrder Date: 02/14/16Order Info: [id number] - [facility] [address] [place], [place], [id number] D-DIMER QUANT 0.65 {FEU/ug/m} (Abnormal) Range: 0.27-0.49 Comments: D-Dimer ELEVATED (>0.49): Additional studies and clinicalassessments are indicated to conclude diagnosis of:Deep Vein Thrombosis (DVT) or Pulmonary Embolism (PE)CRITICAL VALUE REPEATED AND VERIFIED. CALLED TO [facility] INTER[facility] YHMSWGBC62/13/16 1404 Nia Xiong.RESULTS READ BACK BY SAME . 06-Hqt-450813:28 CBC (AUTO) (02479) Comments: PATIENT NOT FASTINGPERFORMED BY: [facility] JerseyKfenez7643 [facility] [id number] Platelets 384 {x10E3/uL} (Abnormal) Range: 150-379 RDW 15.6 % (Abnormal) Range: 12.3-15.4 MCHC 31.8 g/dL (Normal) Range: 31.5-35.7 MCH 28.0 pg (Normal) Range: 26.6-33.0 MCV 88 fL (Normal) Range: 79-97 Hematocrit 34.9 % (Normal) Range: 34.0-46.6 Hemoglobin 11.1 g/dL (Normal) Range: 11.1-15.9 RBC 3.96 {x10E6/uL} (Normal) Range: 3.77-5.28 WBC 9.0 {x10E3/uL} (Normal) Range: 3.4-10.8 :43 CBC W/Diff, Automated Comments: [facility] [address] [place], [place], [phone] Absolute Lymph 2.38 {X10_3/ul} (Normal) Range: 0.83-4.51 Absolute Neut 8.2 {X10_3/uL} (Abnormal) Range: 2.0-7.7 IM GRAN % 0.200 % (Normal) Range: 0.0-0.9 Comments: IG% - Immature Granulocytes (promyelocytes, myelocytes andmetamyelocytes) > 1% indicates that a LEFT SHIFT is Present. BASO% 0.3 % (Normal) Range: 0-1 EO% 1.0 % (Normal) Range: 0-5 MONO% 7.0 % (Normal) Range: 0-10 LY% 20.6 % (Normal) Range: 19-41 NEUT% 70.9 % (Abnormal) Range: 47-70 MPV 10.2 fL (Normal) Range: 6.2-12.0 PLT 367 K/mm3 (Normal) Range: 150-450 RDW SD 44.8 fL (Abnormal) Range: 35.1-43.9 RDW CV 13.9 % (Normal) Range: 11.6-14.6 MCHC 32.7 {g/gl} (Normal) Range: 32-36 MCH 29.6 pg (Normal) Range: 27.0-32.0 MCV 90.4 fL (Normal) Range: 81-99 HCT 38.8 % (Normal) Range: 37-47 HGB 12.7 g/dL (Normal) Range: 12.0-15.0 RBC 4.29 {M/mm3} (Normal) Range: 4.2-5.4 WBC 11.6 K/mm3 (Abnormal) Range: 4.4-11.0 :43 Comprehensive Metabolic Profil Comments: [facility] [address] [place], [place], [phone] GAP 10 (Normal) Range: 5-15 CO2 24.0 mmol/L (Normal) Range: 21.0-32.0 CL 103 mmol/L (Normal) Range: 98-107 K 3.6 mmol/L (Normal) Range: 3.5-5.1 NA 137 mmol/L (Normal) Range: 136-145 T BILI 0.30 mg/dL (Normal) Range: 0.20-1.00 ALT 28 U/L (Normal) Range: 12-78 ALK P 79 U/L (Normal) Range: 50-136 AST 15 U/L (Normal) Range: 15-37 CA 8.8 mg/dL (Normal) Range: 8.5-10.1 A/G 1.2 {RATIO} (Normal) Range: 0.9-2.4 GLOB 3.3 g/dL (Normal) Range: 2.3-3.5 ALB 4.0 g/dL (Normal) Range: 3.4-5.0 T PROT 7.3 g/dL (Normal) Range: 6.4-8.2 BUN/CRE 28.1 {RATIO} (Abnormal) Range: 10-20 EST GFR - AA 150 mL/min (Normal) EST GFR 124 mL/min (Normal) CREAT,SERUM 0.57 mg/dL (Normal) Range: 0.55-1.20 Comments: The validity of the calculated GFR AND GFRAA in patients over70 years has not been determined. Clinical correlation isessential. BUN 16 mg/dL (Normal) Range: 7-18 GLU 80 mg/dL (Normal) Range: 70-110 34-Rbd-88314:43 Lipid Profile Comments: [facility] [address] [place], [address] VLDL 26 mg/dL (Normal) Range: 5-40 LDL 138 mg/dL (Abnormal) Range: 0-130 HDL 73 mg/dL (Normal) Comments: Reference Range HDL <40 mg/dL Low HDL Cholesterol HDL >or= 60 mg/dL High HDL Cholesterol TRIG 128 mg/dL (Normal) Comments: Serum Triglycerides Reference Interval Normal <150 mg/dL Borderline high 150 - 199 mg/dL High 200 - 499 mg/dL Very High > or = 500 mg/dL CHOL 237 mg/dL (Abnormal) Comments: <200 mg/dL Desirable 200-240 mg/dL Borderline >240 mg/dL High Risk 1-Skf-171436:00 Miscellaneous Lab Procedure Comments: Comments: VECTRA SENT OUT SST REFTest(s) Ordered: VECTRATest performed at:[facility] [address] [place] [address] [facility] LAB TEST (Normal) Comments: Sent directly to testing facility per ordering physician.10/14/14 1524 LWOODS :2 C-Reactive 6.6 mg/L (Abnormal) Comments: PATIENT NOT FASTINGPERFORMED BY: [facility] CenterZxxqva0055 [facility] [id number] Protein, Quant Range: 0.0-4.9 :28 CBC With Differential/Platelet Comments: PATIENT NOT FASTINGPERFORMED BY: [facility] JerseyXqpufd4088 [facility] [id number] Information: [id number], [id number] Immature Grans (Abs) 0.0 {x10E3/uL} (Normal) Range: 0.0-0.1 Immature Granulocytes 0 % (Normal) Baso (Absolute) 0.1 {x10E3/uL} (Normal) Range: 0.0-0.2 Eos (Absolute) 0.1 {x10E3/uL} (Normal) Range: 0.0-0.4 Monocytes(Absolute) 0.5 {x10E3/uL} (Normal) Range: 0.1-0.9 Lymphs (Absolute) 2.3 {x10E3/uL} (Normal) Range: 0.7-3.1 Neutrophils (Absolute) 4.3 {x10E3/uL} (Normal) Range: 1.4-7.0 Basos 1 % (Normal) Eos 2 % (Normal) Monocytes 7 % (Normal) Lymphs 31 % (Normal) Neutrophils 59 % (Normal) Platelets 324 {x10E3/uL} (Normal) Range: 150-379 RDW 14.4 % (Normal) Range: 12.3-15.4 MCHC 33.1 g/dL (Normal) Range: 31.5-35.7 MCH 29.6 pg (Normal) Range: 26.6-33.0 MCV 90 fL (Normal) Range: 79-97 Hematocrit 36.0 % (Normal) Range: 34.0-46.6 Hemoglobin 11.9 g/dL (Normal) Range: 11.1-15.9 RBC 4.02 {x10E6/uL} (Normal) Range: 3.77-5.28 WBC 7.3 {x10E3/uL} (Normal) Range: 3.4-10.8 :28 Comp. Metabolic Panel (14) Comments: PATIENT NOT FASTINGPERFORMED BY: [employer] Taco6370 MessageBunkerECU [facility] [id number] ALT (SGPT) 19 [iU]/L (Normal) Range: 0-32 AST (SGOT) 17 [iU]/L (Normal) Range: 0-40 Alkaline Phosphatase, S 79 [iU]/L (Normal) Range: 39-117 Bilirubin, Total 0.2 mg/dL (Normal) Range: 0.0-1.2 A/G Ratio 2.1 (Normal) Range: 1.1-2.5 Globulin, Total 2.1 g/dL (Normal) Range: 1.5-4.5 Albumin, Serum 4.4 g/dL (Normal) Range: 3.5-5.5 Protein, Total, Serum 6.5 g/dL (Normal) Range: 6.0-8.5 Calcium, Serum 9.2 mg/dL (Normal) Range: 8.7-10.2 Carbon Dioxide, Total 23 mmol/L (Normal) Range: 18-29 Chloride, Serum 105 mmol/L Range: 97-108 (Normal) Potassium, Serum 4.3 mmol/L Range: 3.5-5.2 (Normal) Sodium, Serum 143 mmol/L Range: 134-144 (Normal) BUN/Creatinine Ratio 31 (Abnormal) Range: 9-23 eGFR If Africn Am 132 mL/min/1.73 (Normal) eGFR If NonAfricn Am 115 mL/min/1.73 (Normal) Creatinine, Serum 0.58 mg/dL Range: 0.57-1.00 (Normal) BUN 18 mg/dL (Normal) Range: 6-24 Glucose, Serum 77 mg/dL (Normal) Range: 65-99 Magnesium, Serum 2.0 mg/dL (Normal) Comments: PATIENT NOT FASTINGPERFORMED BY: [employer]6370 [facility]erEC[facility] [id number] :28 Range: 1.6-2.6 Sedimentation 7 mm/h (Normal) Comments: PATIENT NOT FASTINGPERFORMED BY: JENNIFER [facility] HospitalCo Rxlfmt0881 Mckenna CollinsECU Health Medical Center [id number] :28 Rate-Westergren Range: 0-32 TSH 1.480 {uIU/mL} Comments: PATIENT NOT FASTINGPERFORMED BY: [facility] Kbzsue0591 [facility] [id number] :28 (Normal) Range: 0.450-4.500 Vitamin B12 505 pg/mL (Normal) Comments: PATIENT NOT FASTINGPERFORMED BY: JENNIFER LabMiss[facility] Xlubbe5173 AndresMissouri Baptist Hospital-SullivanFabianoECU Health Medical Center [id number] :28 Range: 211-946 Vitamin D, 25-Hydroxy 26.7 ng/mL Comments: PATIENT NOT FASTINGPERFORMED BY: [facility] Endfuh9462 [facility] [id number] :28 (Abnormal) Range: 30.0-100.0 Comments: Vitamin D deficiency has been defined by the [place] of[employer]icine and an Endocrine Society practice guideline as alevel of serum 25-OH vitamin D less than 20 ng/mL (1,2).The Endocrine Society went on to further define vitamin Dinsufficiency as a level between 21 and 29 ng/mL (2).1. IOM ([place] of Medicine). 2010. Dietary reference intakes for calcium and D. [place]: The National Academies Press.2. Haylee MF, Heriberto [place], Kermit ERWIN, et al. Evaluation, treatment, and prevention of vitamin D deficiency: an Endocrine Society clinical practice guideline. JCEM. 2010; 96(7):1911-30. :08 HgA1C , Office (62334) HgA1C , Office 5.4 % (Normal) Range: 4.6 - 7.1 :08 Blood Glucose , Office (23656) Blood Glucose , Office 87 (Normal) 23-Zbq-382242:47 CBC W/Diff, Automated Comments: Test performed at:[facility] [id number] [place] [address] Absolute Lymph 1.92 {X10_3/ul} (Normal) Range: 0.83-4.51 Absolute Neut 5.0 {X10_3/uL} (Normal) Range: 2.0-7.7 IM GRAN % 0.100 % (Normal) Range: 0.0-0.9 Comments: IG% - Immature Granulocytes (promyelocytes, myelocytes andmetamyelocytes) > 1% indicates that a LEFT SHIFT is Present. BASO% 0.6 % (Normal) Range: 0-1 EO% 2.1 % (Normal) Range: 0-5 MONO% 7.6 % (Normal) Range: 0-10 LY% 24.8 % (Normal) Range: 19-41 NEUT% 64.8 % (Normal) Range: 47-70 MPV 9.8 fL (Normal) Range: 6.2-12.0 PLT 309 K/mm3 (Normal) Range: 150-450 RDW SD 44.5 fL (Abnormal) Range: 35.1-43.9 RDW CV 13.9 % (Normal) Range: 11.6-14.6 MCHC 32.9 {g/gl} (Normal) Range: 32-36 MCH 29.6 pg (Normal) Range: 27.0-32.0 MCV 90.0 fL (Normal) Range: 81-99 HCT 38.6 % (Normal) Range: 37-47 HGB 12.7 g/dL (Normal) Range: 12.0-15.0 RBC 4.29 {M/mm3} (Normal) Range: 4.2-5.4 WBC 7.7 K/mm3 (Normal) Range: 4.4-11.0 08-Rkz-754917:47 Comprehensive Metabolic Profil Comments: Test performed at:[facility] [id number] [place] [address] GAP 5 (Normal) Range: 5-15 CO2 26.0 mmol/L (Normal) Range: 21.0-32.0 CL 105 mmol/L (Normal) Range: 98-107 K 3.6 mmol/L (Normal) Range: 3.5-5.1 NA 136 mmol/L (Normal) Range: 136-145 T BILI 0.60 mg/dL (Normal) Range: 0.00-4.00 ALT 31 U/L (Normal) Range: 12-78 ALK P 86 U/L (Normal) Range: 50-136 AST 19 U/L (Normal) Range: 15-37 CA 8.4 mg/dL (Abnormal) Range: 8.5-10.1 A/G 1.1 {RATIO} (Normal) Range: 0.9-2.4 GLOB 3.4 g/dL (Normal) Range: 2.7-4.2 ALB 3.7 g/dL (Normal) Range: 3.4-5.0 T PROT 7.1 g/dL (Normal) Range: 6.4-8.2 BUN/CRE 23.3 {RATIO} (Abnormal) Range: 10-20 EST GFR - AA 143 mL/min (Normal) EST GFR 118 mL/min (Normal) CREAT,SERUM 0.6 mg/dL (Normal) Range: 0.6-1.0 BUN 14 mg/dL (Normal) Range: 7-18 GLU 77 mg/dL (Normal) Range: 70-110 10-Jan-20148:11 MISC (Normal) Comments: Comments: VECTRATest(s) Ordered: VECTRA Comments: Sent directly to testing facility per ordering physician.01/18/14 1107 [facility] Plan of Care Name Dates Details Instructions Nonsmoker : Follow up if no improvement or if symptoms worsen Indication: Nonsmoker Nonsmoker : Eprescribed prescriptions (G8553) Indication: Nonsmoker Decreased range of motion of left lower extremity : Follow up if no improvement or if symptoms worsen Indication: Decreased range of motion of left lower extremity BMI 40.0-44.9, adult : Eprescribed prescriptions (G8553) Indication: BMI 40.0-44.9, adult BMI 40.0-44.9, adult : Follow up if no improvement or if symptoms worsen Indication: BMI 40.0-44.9, adult BMI 40.0-44.9, adult : Eprescribed prescriptions (G8553) Indication: BMI 40.0-44.9, adult Acute asthma exacerbation (Renamed from Asthma with acute exacerbation) : Follow up tomorrow, as needed Indication: Acute asthma exacerbation (Renamed from Asthma with acute exacerbation) Cough : Reviewed Diagnostic Tests Indication: Cough Acute asthma exacerbation (Renamed from Asthma with acute exacerbation) : Asthma: asthma Indication: Acute asthma exacerbation (Renamed from Asthma with acute exacerbation) BMI 40.0-44.9, adult : Eprescribed prescriptions (G8553) Indication: BMI 40.0-44.9, adult Abnormal lung sounds : Follow up tomorrow, as needed Indication: Abnormal lung sounds BMI 40.0-44.9, adult : Eprescribed prescriptions (G8553) Indication: BMI 40.0-44.9, adult BMI 40.0-44.9, adult : Follow up if no improvement or if symptoms worsen Indication: BMI 40.0-44.9, adult Acute asthma exacerbation (Renamed from Asthma with acute exacerbation) : *URI Treatment Indication: Acute asthma exacerbation (Renamed from Asthma with acute exacerbation) Acute asthma exacerbation (Renamed from Asthma with acute exacerbation) : *URI Symptoms Indication: Acute asthma exacerbation (Renamed from Asthma with acute exacerbation) Acute asthma exacerbation (Renamed from Asthma with acute exacerbation) : *Antibiotic Usage Education - Female Indication: Acute asthma exacerbation (Renamed from Asthma with acute exacerbation) Cough : Eprescribed prescriptions (G8553) Indication: Cough TMJ (temporomandibular joint disorder) : Follow up if no improvement or if symptoms worsen Indication: TMJ (temporomandibular joint disorder) Sinus pressure : Eprescribed prescriptions (G8553) Indication: Sinus pressure Sore throat : Sore throat: diagnosis and treatment Indication: Sore throat Flu-like symptoms : Eprescribed prescriptions (G8553) Indication: Flu-like symptoms Sciatica of left side : Reviewed Diagnostic Tests Indication: Sciatica of left side Low back pain potentially associated with radiculopathy : Follow up in 5-6 weeks Indication: Low back pain potentially associated with radiculopathy Low back pain potentially associated with radiculopathy : Eprescribed prescriptions (G8553) Indication: Low back pain potentially associated with radiculopathy Gastroenteritis : Follow up if no improvement or if symptoms worsen Indication: Gastroenteritis Hives : Follow up if no improvement or if symptoms worsen Indication: Hives Inflammatory polyarthritis : Follow up if no improvement or if symptoms worsen Indication: Inflammatory polyarthritis Wheezing (Renamed from Asthmatic breathing) : *Antibiotic Usage Education - Female Indication: Wheezing (Renamed from Asthmatic breathing) Wheezing (Renamed from Asthmatic breathing) : Eprescribed prescriptions (G8553) Indication: Wheezing (Renamed from Asthmatic breathing) Acid reflux : GERD Education Indication: Acid reflux Planned Observations Rapid Strep Test, Office ([id number])Indication: Sore throat On: 44-Gym-043742:08 Request Rapid Flu (87681 x 2)Indication: Flu-like symptoms On: 39-Eot-618175:08 Request D-Dimer (15979)Indication: Shortness of breath at rest On: 85-Lin-845496:38 Request Rapid Flu (29250 x 2)Indication: Vomiting and diarrhea On: 0-Hmn-755033:04 Request VITAMIN B-12 (CYANOCOBALAMIN) ([id number])Indication: Electrical shock sensation On: :14 Request SED RATE ERYTHROCYTE (38796)Indication: Electrical shock sensation On: :14 Request C-REACTIVE PROTEIN (71882)Indication: Electrical shock sensation On: :14 Request MAGNESIUM (17746)Indication: Electrical shock sensation On: :14 Request CALCIFIDIOL (37915) VIT D 25Indication: Electrical shock sensation On: :13 Request TSH (22109)Indication: Electrical shock sensation On: :13 Request CBC W/AUTO DIFF WBC (90199)Indication: Electrical shock sensation On: :13 Request METABOLIC PANEL, COMPREHENSIVE (07118)Indication: Electrical shock sensation On: :13 Request HgA1C , Office (52296)Indication: FAMILY HISTORY OF DIABETES MELLITUS On: 87-Bdt-372671:33 Request Planned Procedures MRI OF LUMBAR SPINE WITH AND On: 23-Feb-2018 Intent WITHOUT CONTRAST ([id number])By: Suzy Hamlin CNP PHYSICAL THERAPY ([id number])By: On: 15-Feb-2018 Intent Jenelle London Toradol Injection, 30 mg On: 15-Feb-2018 Intent ([id number])By: Jenelle London Radiology - Hip - LeftBy: Surya On: 15-Feb-2018 Lan Almanzar Comments: Call with wet read Radiology - Lumbar SpineBy: On: 15-Feb-2018 Intent Jenelle London Comments: Call with wet read Toradol Injection, 30 mg On: 15-Feb-2018 Intent ([id number])By: Jenelle London Comments: [id number]/1MLMEGAN, LOFT RIGGER Flu Vaccine (Quadrivalent) 15779Bn: On: 15-Feb-2018 Intent Jenelle London Comments: Lot #[id number]/30/2019Site-L dltd, IMDose prefilled syringegiven by:Benitez Allan LPNVIS reviewed and ABN signed Aerosol Treatment ([id number])By: On: 11-Aug-2017 Intent Jenelle London Comments: Exp wheeze in both lungs after aerosol treatment. Solu -Medrol Injection, 125 mg On: 11-Aug-2017 Intent (J2930)By: Jenelle London Comments: solumedrol 125mg injection lot:[id number]:01/2020R GM pt tolerated well MSMITH,LOFT RIGGER CHEST XRAY, PA & LATERAL ([id number])By: On: 10-Aug-2017 Intent Jenelle London Aerosol Treatment ([id number])By: On: 10-Aug-2017 Intent Jenelle London Comments: Exp wheeze heard throughout bilateral lungs after aerosol treatment. Solu -Medrol Injection, 125 mg On: 10-Aug-2017 Intent (J2930)By: Jenelle London Comments: solumedrol 125mg injection lot:[id number]:01/2020L GM pt tolerated well MSMITH,LOFT RIGGER Solu -Medrol Injection, 125 mg On: 05-Aug-2017 Intent ([id number])By: Suzy Hamlin CNP Comments: lot [id number] 09/2019left [id number], LOFT RIGGER Aerosol Treatment ([id number])By: Yakelin On: 05-Aug-2017 Intent Suzy MCDONALD ELECTROCARDIOGRAM, COMPLETE (ECG) On: 05-Aug-2017 Intent ([id number])By: Suzy Hamlin CNP CT - Chest with PE ProtocolBy: On: 14-Feb-2016 Intent Nancy Lucas DO, DO, Kathleen EKG ([id number])By: Nancy Lucas DO On: 14-Feb-2016 Intent Nancy Lucas DO Aerosol Treatment ([id number])By: Lance On: 14-Feb-2016 Nancy Montenegro DO, DO, Kathleen Comments: more a/e Spirometry ([id number])By: Lance CAMARA, On: 14-Feb-2016 Intent Nancy Shields DO Comments: some restriction Radiology - Lumbar SpineBy: Lance On: 02-Nov-2015 Nancy Montenegro DO, DO, Kathleen Comments: 2-3 views X-RAY OF LUMBAR SPINE, AP VIEW On: 02-Nov-2015 Intent ([id number])By: Nancy Lucas DO, DO, Kathleen Phenergan Injection, up to 50 mg On: 05-Jun-2015 Intent ([id number])By: Suzy Hamlin CNP IV Needle placement (32346)By: On: 05-Jun-2015 Intent Suzy Hamlin CNP INFUSION, NORMAL SALINE SOLUTION , On: 05-Jun-2015 Intent 1000 CC (Special Coverage Instructions Apply. See MCM: 2049) ([id number])By: Suzy Hamlin CNP MRI - BrainBy: Nancy Lucas DO On: 02-Oct-2014 Intent Nancy Lucas DO Solu -Medrol Injection, 125 mg On: 03-Feb-2014 Intent ([id number])By: Suzy Hamlin CNP Aerosol Treatment ([id number])By: Yakelin On: 03-Feb-2014 Intent Suzy MCDONALD Radiology - Chest- PA and LatBy: On: 23-Jan-2014 Intent Micki Garcia DO Comments: stat call results Aerosol Treatment ([id number])By: Jose On: 23-Jan-2014 Micki Montenegro DO MAMMOGRAM, SCREENING, BOTH BREAST On: 12-Jan-2014 Intent ([id number])By: Nancy Lucas DO, DO, Kathleen Planned Medications INFUSION, NORMAL SALINE SOLUTION , 1000 CC Ordered: 05-Jun-2015 Pending Suzy Hamlin CNP INJECTION, KETOROLAC TROMETHAMINE, PER 15 MG Ordered: 15-Feb-2018 Pending Jenelle London INJECTION, KETOROLAC TROMETHAMINE, PER 15 MG Ordered: 15-Feb-2018 Pending Jenelle London INJECTION, METHYLPREDNISOLONE SODIUM SUCCINATE, UP TO 125 MG Ordered: 03-Feb-2014 Pending Suzy Hamlin CNP INJECTION, METHYLPREDNISOLONE SODIUM SUCCINATE, UP TO 125 MG Ordered: 05-Aug-2017 Pending Suzy Hamlin CNP INJECTION, METHYLPREDNISOLONE SODIUM SUCCINATE, UP TO 125 MG Ordered: 10-Aug-2017 Pending Jenelle London INJECTION, METHYLPREDNISOLONE SODIUM SUCCINATE, UP TO 125 MG Ordered: 11-Aug-2017 Pending Jenelle London Phenergan 50 MG/ML Injection Solution Ordered: 05-Jun-2015 Pending Suzy Hamlin CNP Instructions Name Dates Details Nonsmoker : How to access health information online Indication: Nonsmoker Nonsmoker : How to access health information online - Detail Indication: Nonsmoker Nonsmoker : Patient Instructions Indication: Nonsmoker BMI 40.0-44.9, adult : How to access health information online Indication: BMI 40.0-44.9, adult BMI 40.0-44.9, adult : How to access health information online - Detail Indication: BMI 40.0-44.9, adult Decreased range of motion of left lower extremity : Patient Instructions Indication: Decreased range of motion of left lower extremity BMI 40.0-44.9, adult : How to access health information online Indication: BMI 40.0-44.9, adult BMI 40.0-44.9, adult : How to access health information online - Detail Indication: BMI 40.0-44.9, adult BMI 40.0-44.9, adult : Patient Instructions Indication: BMI 40.0-44.9, adult BMI 40.0-44.9, adult : How to access health information online Indication: BMI 40.0-44.9, adult BMI 40.0-44.9, adult : How to access health information online - Detail Indication: BMI 40.0-44.9, adult Acute asthma exacerbation (Renamed from Asthma with acute exacerbation) : Patient Instructions Indication: Acute asthma exacerbation (Renamed from Asthma with acute exacerbation) BMI 40.0-44.9, adult : How to access health information online Indication: BMI 40.0-44.9, adult BMI 40.0-44.9, adult : How to access health information online - Detail Indication: BMI 40.0-44.9, adult Acute asthma exacerbation (Renamed from Asthma with acute exacerbation) : Patient Instructions Indication: Acute asthma exacerbation (Renamed from Asthma with acute exacerbation) Cough : How to access health information online Indication: Cough Cough : How to access health information online - Detail Indication: Cough Cough : Patient Instructions Indication: Cough SCREENING FOR HYPERLIPIDEMIA (Renamed from Encounter for screening for lipoid disorders) : DISCONTINUED - LIPID PANEL ([id number]) Indication: SCREENING FOR HYPERLIPIDEMIA (Renamed from Encounter for screening for lipoid disorders) Sinus pressure : How to access health information online Indication: Sinus pressure Sinus pressure : How to access health information online - Detail Indication: Sinus pressure Sinus pressure : Patient Instructions Indication: Sinus pressure Flu-like symptoms : How to access health information online Indication: Flu-like symptoms Flu-like symptoms : How to access health information online - Detail Indication: Flu-like symptoms Flu-like symptoms : Patient Instructions Indication: Flu-like symptoms Low back pain potentially associated with radiculopathy : How to access health information online Indication: Low back pain potentially associated with radiculopathy Low back pain potentially associated with radiculopathy : How to access health information online - Detail Indication: Low back pain potentially associated with radiculopathy Low back pain potentially associated with radiculopathy : Patient Instructions Indication: Low back pain potentially associated with radiculopathy Wheezing (Renamed from Asthmatic breathing) : How to access health information online Indication: Wheezing (Renamed from Asthmatic breathing) Wheezing (Renamed from Asthmatic breathing) : How to access health information online - Detail Indication: Wheezing (Renamed from Asthmatic breathing) Wheezing (Renamed from Asthmatic breathing) : Patient Instructions Indication: Wheezing (Renamed from Asthmatic breathing) Breast pain : How to access health information online Indication: Breast pain Breast pain : How to access health information online - Detail Indication: Breast pain Breast pain : Patient Instructions Indication: Breast pain Acid reflux : Patient Instructions Indication: Acid reflux Encounters Office Visit On: 23-Feb-2018 11:35 Encounter Reason: Follow up acute care visit - The patient does not feel well. Note for Follow up acute care visit: Left leg with pain anterior keeps hurting and unable to tolerate. Feels shaky and loss of muscle stren End: 23-Feb-2018 12:59 gthPain feels like burning pain rubbing legEncounter Diagnosis: BMI 40.0-44.9, adult, Nonsmoker, Radiculopathy, lumbar region, Neuropathy [facility] Annotation/Addendum On: 16-Feb-2018 16:34 Encounter Diagnosis: Unspecified Diagnosis End: 16-Feb-2018 16:38 [facility] Office Visit On: 15-Feb-2018 10:43 Encounter Reason: Hip Problem - The injury involved the left hip. Note for Hip problem: Symptoms started 4 days ago when bent over and heard something pop. Has pain in left hip/back area. Shooting pain down front of End: 15-Feb-2018 12:12 left leg. Hurts to lift leg, sit, stand or walk. No bruising. Was taking prednisone and tramadol over the weekend-not noticing any difference.Encounter Diagnosis: Nonsmoker, BMI 40.0-44.9, adult, Need for prophylactic vaccination and inoculation against influenza (Renamed from Need for immunization against influenza), Lower back pain, Left hip pain, Decreased range of motion of left lower extremity [facility] Office Visit On: 14-Dec-2017 13:55 Encounter Reason: Sinusitis - Symptoms include nasal congestion, clear rhinorrhea, cheek pressure and forehead pressure. Onset was 3 week(s) ago. The patient describes this as worsening. Note for Sinusitis: Takes aller End: 14-Dec-2017 15:07 gra daily but worsening sinusHad sinus surgery had balloon sinuplasty done in 2018Encounter Diagnosis: Inflammatory polyarthritis, Nonsmoker, BMI 40.0-44.9, adult, Recurrent sinus infections [facility] Office Visit On: 11-Aug-2017 10:19 Encounter Reason: Follow up acute care visit - The patient feeling better since last seen (feels somewhat better but not 100% yet. Didn't cough as much last night). Patient has been compliant with instructions. Current m End: 11-Aug-2017 11:13 edication use: no side effects, compliant with dosing regimen and considered effective by patient. Patient sleeps 5 hours per night. Nutrition: balanced diet. Note for Follow up acute care visit: Was seen in office last week for bronchitis, and acute asthma exacerbation. Was given z-pack and prednisone. Still coughing-yellow/clear, a little SOB, rattling, No fever or chills. Using albuterol 3x times /day-helps calm the cough. Still feels like she is not 100%.Here for follow up recheck- less cough-but still feels wheezy-used inhaler every 4 hours yesterday and last night. Cough is non productive. No fever or chills.Encounter Diagnosis: SOB (shortness of breath), Cough, BMI 40.0-44.9, adult, Nonsmoker, Acute asthma exacerbation (Renamed from Asthma with acute exacerbation), Abnormal lung sounds [facility] Office Visit On: 10-Aug-2017 10:36 Encounter Reason: Follow up acute care visit - The patient feeling better since last seen (feels somewhat better but not 100% yet. Just finished antibiotic yesterday, a couple days left of the prednisone). Patient has be End: 10-Aug-2017 11:16 en compliant with instructions. Current medication use: no side effects, compliant with dosing regimen and considered effective by patient. Note for Follow up acute care visit: Was seen in office last week for bronchitis, and acute asthma exacerbation. Was given z-pack and prednisone. Still coughing-yellow/clear, a little SOB, rattling, No fever or chills. Using albuterol 3x times/day-helps calm the cough. Still feels like she is not 100%. Encounter Diagnosis: BMI 40.0-44.9, adult, Nonsmoker, Abnormal lung sounds, Acute asthma exacerbation (Renamed from Asthma with acute exacerbation), Cough, SOB (shortness of breath) [facility] Annotation/Addendum On: 05-Aug-2017 13:08 Encounter Diagnosis: Acute asthma exacerbation (Renamed from Asthma with acute exacerbation) End: 05-Aug-2017 13:10 [facility] Office Visit On: 05-Aug-2017 10:49 Encounter Reason: Cough - Note for Cough: was given IV fluid in [place] [facility] on July 31Cough in chest on Thursday x 3 days, [ADDITIONAL REASON] Chest Pain - Symptoms include chest pain, cough and dyspnea. The pain is located End: 05-Aug-2017 12:47 in the substernal area. There is no radiation. The symptoms occur constantly (worse with cough). Symptoms are exacerbated by movement (cough). Note for Chest pain: Pt is worried about pneumonia. Encounter Diagnosis: Nonsmoker, Cough, BMI 40.0-44.9, adult, Chest pain at rest, Acute asthma exacerbation (Renamed from Asthma with acute exacerbation) [facility] Phone Encounter On: 26-May-2017 10:14 Encounter Diagnosis: Recurrent sinus infections End: 26-May-2017 10:17 [facility] Office Visit On: 06-May-2017 11:53 Encounter Reason: Sinusitis - Symptoms include nasal congestion, postnasal drainage, cheek pressure, forehead pressure, ear pain and ear pressure. Onset was 5 month(s) ago. The symptoms occur constantly. The patient desc End: 06-May-2017 12:15 ribes this as worsening. Previous presentation included nasal congestion, postnasal drainage, cheek discomfort, forehead pressure and ear discomfort. Note for Sinusitis: Saw pt in Mar for sinus infection, but has returned, and cannot get over it Encounter Diagnosis: Nonsmoker, BMI 40.0-44.9, adult, Sinus pressure, SCREENING FOR HYPERLIPIDEMIA (Renamed from Encounter for screening for lipoid disorders), TMJ (temporomandibular joint disorder) [facility] Office Visit On: 30-Mar-2017 12:57 Encounter Reason: Flu Like Symptoms - Symptoms include body aches, nasal congestion, runny nose, postnasal drainage, scratchy throat, sore throat, hoarseness, productive cough and headache. Onset was 5 day(s) ago. The sy End: 30-Mar-2017 13:38 mptoms occur constantly. Associated symptoms include plugged ear(s), ear pain and fatigue. Current treatment includes oral decongestants.Encounter Diagnosis: Nonsmoker, BMI 40.0-44.9, adult, Flu-like symptoms, Sore throat, Sinusitis, acute [facility] Office Visit On: 14-Feb-2016 10:58 Encounter Reason: Difficulty breathing - The onset of the difficulty breathing has been sudden and has been occurring in a persistent pattern for 5 days. The course has been constant. The difficulty breathing is moderate End: 14-Feb-2016 15:13 . The difficulty breathing occurs with normal activities. The symptoms have been associated with anxiety (at times) and palpitations, while the symptoms have not been associated with chest pain or coughing.Encounter Diagnosis: Acute asthma exacerbation (Renamed from Asthma with acute exacerbation), Shortness of breath at rest, Nonsmoker [facility] Office Visit On: 14-Dec-2015 13:05 Encounter Reason: Sciatica - The cause of the sciatica is unknown. This condition is related to repetitive activity (work out routine). Symptoms include lower back pain.Encounter Diagnosis: Sciatica of left side, End: 14-Dec-2015 13:59 Low back pain potentially associated with radiculopathy, Leg length discrepancy [facility] Phone Encounter On: 02-Nov-2015 12:50 Encounter Diagnosis: Sciatica of left side End: 02-Nov-2015 12:52 [facility] Office Visit On: 02-Nov-2015 11:45 Encounter Reason: Sciatica - The cause of the sciatica is unknown. This condition is related to repetitive activity (work out routine). Symptoms include lower back pain.Encounter Diagnosis: [place], Sciatica of left side, End: 02-Nov-2015 12:23 Low back pain potentially associated with radiculopathy [facility] Office Visit On: 05-Jun-2015 13:55 Encounter Reason: Vomiting - The last clinic visit was 1 day(s) ago. Symptoms include nausea and vomiting. Onset was sudden 1 day(s) ago. The symptoms occur intermittently. The episodes occur daily and last for 1 day. Th End: 05-Jun-2015 15:30 e patient describes this as unchanged. Associated symptoms include headache, lightheadedness and diarrhea. Current treatment includes bismuth subsalicylate. By report there is good compliance with treat ment. Presenting symptoms included nausea, vomiting and diarrhea. Note for Vomiting: no possibility of as had tubes tied , [ADDITIONAL REASON] Diarrhea - Adult - The last clinic visit was 1 day(s) ago. No changes in managem ent were made at the last visit. Symptoms include diarrhea, abdominal pain, nausea and vomiting. The stools are described as watery. Onset was sudden 1 day(s) ago. There is no known event that preceded symptom onset. The symptoms occur intermittently. The episodes occur 2 time(s) an hour. This is described as unchanged. Associated symptoms do not include irritability, lethargy, headache, weight loss, myalgias, rash, dry mouth, excessive thirst, sunken eyes, diminished tears or decreased urine output. Current treatment includes Pepto Bismol. By report there is good compliance with treatment. Previous presentation included diarrhea, abdominal pain, nausea, vomiting and headache. Encounter Diagnosis: Vomiting and diarrhea, Dehydration, moderate, Gastroenteritis [facility] Office Visit On: 11-Oct-2014 15:55 Encounter Reason: Rash - Symptoms include pain and skin redness. The skin rash is located on the left leg, left foot, right leg and right foot. Onset was gradual week(s) ago. The symptoms occur frequently.Encounter Diagnosis: Hives End: 11-Oct-2014 16:34 [facility] Office Visit On: 02-Oct-2014 11:53 Encounter Reason: Visual disturbance - The onset of the visual disturbance has been sudden and has been occurring for 3 days. The course has been increasing. The visual disturbance is characterized as painless and a blur End: 02-Oct-2014 13:22 ring of vision. The visual disturbance is observed in both eyes.Encounter Diagnosis: Electrical shock sensation, Blurred vision [facility] Phone Encounter On: 21-Mar-2014 12:04 Encounter Diagnosis: Hives End: 21-Mar-2014 12:05 [facility] Office Visit On: 03-Feb-2014 14:03 Encounter Reason: Follow up acute care visit - The patient feeling better since last seen and improving. Patient has been compliant with instructions. Current medication use: no side effects, compliant with dosing regime End: 03-Feb-2014 14:57 n and considered effective by patient. Patient sleeps 8 (broken ) hours per night. The medical issues the patient is following up for include All identified problems below and other (pneumonia ).Encounter Diagnosis: Wheezing (Renamed from Asthmatic breathing), Cough, Inflammatory polyarthritis, Post-infection bronchospasm [facility] Office Visit On: 23-Jan-2014 13:28 Encounter Reason: Cold Symptoms - The last clinic visit was 9 day(s) ago. Symptoms include dry cough. Onset was gradual 9 day(s) ago. The symptoms occur constantly. The patient describes this as worsening. Note for Cold End: 23-Jan-2014 21:42 symptoms: trying mucinex- little wheeze sob- had temp monand tue- low grade- she hasnt been taking enbrel becuase of this- not taking prednisone- - hold methotrexate Encounter Diagnosis: Wheezing (Renamed from Asthmatic breathing), BACTERIAL PNEUMONIA, UNSPECIFIED (482.9) [facility] Office Visit On: 12-Jan-2014 7:43 Encounter Reason: Breast pain - The onset of the breast pain has been sudden and has been occurring in a persistent pattern for days (4). The course has been constant. The breast pain is described as severe. The location End: 12-Jan-2014 8:29 of the pain is in the right upper outer quadrant.Encounter Diagnosis: Fibromyalgia, Breast pain, Breast cancer screening [facility] Office Visit On: 31-Aug-2013 14:50 Encounter Reason: new patient female physical - Last seen between 1-3 months ago. General health: feels well with minor complaints, has decreased energy level and is sleeping poorly. The patient's appetite is normal. Nut End: 31-Aug-2013 16:06 rition: normal/adequate. Exercises 2 days per week. Sleeps on average 5 hours per night. Normal bowel and bladder habits. Safety measures include appropriate use of safety belts and home smoke detectors . There are no current emotional problems. screening, colonoscopy, screening, mammography and screening, Pap smear.Encounter Diagnosis: Acid reflux, Fibromyalgia, TMJ (dislocation of temporomandibular joint), Inflammatory polyarthritis, Allergic rhinitis, SCREENING FOR HYPERLIPIDEMIA (Renamed from Encounter for screening for lipoid disorders), FAMILY HISTORY OF DIABETES MELLITUS [facility] Payers Tracie LESTER/Sriram Jeffers; a guarantor
--- OUTSIDE RECORDS SUMMARY | 2018-07-26 07:58 | XMS RPT_ITS | Continuity of Care Document ---
:1975 Author Organization [facility] Address [address] [facility] [address] [place] [address] Phone Care Team Providers Name Role Phone Nancy Lucas DO Unavailable Physical Therapy, [facility] Unavailable Matthew Becker MD Unavailable Rony Lucas Unavailable Cruz Kumari Unavailable Unavailable Sindi Slater Unavailable Unavailable Yakelin MCDONALD, Jazmyn Unavailable Slaalan ASSEMBLER SEMICONDUCTOR, Nona Unavailable Unavailable Long ASSEMBLER SEMICONDUCTOR, Sailaja L Unavailable Unavailable Susan Acevedo Unavailable Unavailable Unavailable Unavailable [...] Status: Active Fibromyalgia (M79.7, 729.1) Status: Active Flu-like symptoms (R68.89, 780.99) Status: Active Gastroenteritis (K52.9, 558.9) Status: Active [...] Active Sore throat (J02.9, 462) Status: Active Sore throat (J02.9, 462) Status: [...] Jenelle Castellon LPN Start : 31-Aug-2013 Active Augmentin 875-125 MG Oral Tablet 1 (one) Tablet bid for 14 days Quantity: 28 {Tablet} Refills: 0 Ordered:05-May-2018 Suzy Hamlin CNP Start : 05-May-2018 Active Benzonatate 200 MG Oral Capsule 1 (one) Capsule PO TID PRN for 0 days Quantity: 30 {Capsule} Refills: 0 Ordered:05-May-2018 Suzy Hamlin CNP Start : 05-May-2018 Active Gabapentin 300 MG Oral Capsule 1 (one) Capsule Capsule take daily x 3 days then bid for 0 days Quantity: 60 {Capsule} Refills: 0 Ordered:23-Feb-2018 Sindi Slater Start : 23-Feb-2018 Active Comments:neuropathic pain G62.9 Oarrs run Sixty Levocetirizine Dihydrochloride 5 MG Oral Tablet 1 (one) Tablet qd for 0 days Quantity: 90 {Tablet} Refills: 3 Ordered:06-Apr-2017 Rachele Lucas DO, DO, Kathleen Start : 06-Apr-2017 Active Medrol 4 MG Oral Tablet Therapy Pack 1 (one) Milligram Milligram TAD for 0 days Quantity: 1 {Package} Refills: 0 Ordered:16-Feb-2018 Jerrell WAGNER Sailaja L Start : 16-Feb-2018 Active Comments:take with food Omeprazole 40 MG Oral Capsule Delayed Release 1 (one) Capsule DR qd for 0 days Quantity: 90 {Capsule} Refills: 2 Ordered:26-Aug-2017 Rachele Lucas DO, DO, Kathleen Start : 26-Aug-2017 Active Omeprazole 40 MG Oral Capsule Delayed Release 1 (one) Capsule DR qd for 90 days Quantity: 90 {Capsule} Refills: 3 Ordered:26-Aug-2017 Rachele Lucas DO, DO, Kathleen Start : 26-Aug-2017 Active PredniSONE 10 MG Oral Tablet 3 (three) Tablet pills for 3 days 2 for 3 days 1 for 3 day with food am for 0 days Quantity: 18 {Tablet} Refills: 0 Ordered:23-Feb-2018 Smithajody HARRYSuzy Start : 23-Feb-2018 Active Comments:with food CYMBALTA, 60MG (Oral Capsule Delayed Release Particles) 1 (one) Capsule DR Part Capsule DR Part qd for 30 days Quantity: 30 {Capsule} Refills: 0 Ordered:20-Feb-2015 Karen Madrid MD Start : 02-Oct-2014 End : 01-Nov-2014 Inactive Comments:per vellanrosa m Flonase 50 MCG/ACT Nasal Suspension 2 (two) Puff Puff daily for 0 days Quantity: 1 {Bottle} Refills: 0 Ordered:30-Mar-2017 Nona Stock LPN Start : 03-Feb-2014 End : 30-Mar-2017 Inactive Folic Acid 1 MG Oral Tablet 1 (one) Tablet Tablet qd for 30 days Refills: 0 Ordered:05-Aug-2017 Nona [...] Start : 31-Aug-2013 End : 05-Aug-2017 Inactive Methotrexate Sodium 2.5 MG Oral Tablet 6 Tablet once a week for 30 days Quantity: 24 {Tablet} Refills: 3 Ordered:05-May-2018 Suzy Hamlin CNP Start : 14-Dec-2017 End : 05-May-2018 Inactive Mobic 15 MG Oral Tablet 1 [...] days Quantity: 4 {Milliliter} Refills: 3 Ordered:23-Feb-2018 Smithajosecarmen MCDONALDSuzy Start : 14-Dec-2017 End : 23-Feb-2018 Inactive [...] days Quantity: 30 {Tablet} Refills: 0 Ordered:30-Mar-2017 Lance DORachele DO, Kathleen Start : 30-Mar-2017 End : 29-Apr-2017 Inactive Zithromax Z-Forrest 250 MG Oral Tablet 1 (one) Tablet TAD for 0 days Quantity: 1 {Package} Refills: 0 Ordered:10-Aug-2017 Susan Acevedo Start : 05-Aug-2017 End : 10-Aug-2017 Inactive ENBREL, 50MG/ML (Subcutaneous Solution Prefilled Syringe) 1 (one) Solution Solution q week for 30 days Refills: 0 Ordered:05-Jun-2015 SlaNona phillips LPN Start : 12-Jan-2014 End : 05-Jun-2015 Discontinued [...] Comments: 06/2017 dr felix Date Value Details 25-Feb-2018 Spine Lumbar (Routine) Result: Comments: See Note; NOTES: [facility] Imaging Services [address] [place] [address] Spine Lumbar (Routine) MR#: [id number] Acct: [id number] Name: MANDA JEFFERS Rep #: [id number] : 1975 F 42 From: Karen Lagos MD PCP: Nancy Lucas DO Status: REG CLI Study: Spine Lumbar (Routine) Date of Exam: 02/25/18 Exam# [id number] Ordering Dr: Nancy Lucas DO STUDY: MRI LUMBAR SPINE WITHOUT CONTRAST REASON FOR EXAM: Female, 42 years old. Back pain and left radiculopathy. TECHNIQUE: Standardized fat and water weighted pulse sequences were obtained in the sagittal and axial planes. COMPARISON: None FINDINGS: T12-L1: Normal endplates. Normal disc height, hydration and morphology. Normal bilateral facet joints. Normal central canal and bilateral lateral recesses. Normal bilateral intervertebral neural foramina. Normal lumbar lordosis. There is no substantial scoliosis. Normal conus medullaris that terminates at the L1 level . L1-2: Normal endplates. Normal disc height, hydration and morphology. Normal bilateral facet joints. Normal central canal and bilateral lateral recesses. Normal bilateral intervertebral neural forami na. L2-3: Normal endplates. Normal disc height, hydration and morphology. Normal bilateral facet joints. Normal central canal and bilateral lateral recesses. Normal bilateral intervertebral neural fora priscilla. L3-4: Normal endplates. Normal disc height, hydration and morphology. There is a small left inferior foraminal disc protrusion. No evidence of nerve root displacement. Normal bilateral facet join ts. Normal central canal and bilateral lateral recesses. Normal bilateral intervertebral neural foramina. L4-5: Normal endplates. Normal disc height, hydration and morphology. Normal bilateral facet calvin ints. Normal central canal and bilateral lateral recesses. Normal bilateral intervertebral neural foramina. L5-S1: Normal endplates. Normal disc height, hydration and morphology. Normal bilateral facet joints. Normal central canal and bilateral lateral recesses. Normal bilateral intervertebral neural foramina. Normal visualized sacral ala. Normal visualized paraspinous soft tissue structures. MRI/Spine Lumbar (Routine) IMPRESSION: 1. Small L3-4 left foraminal disc protrusion without obvious nerve root displacement. Otherwise normal study. 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 Imaging Services [address] [place] [address] Spine Lumbar (Routine) MR#: [id number] Acct: [id number] Name: MANDA JEFFERS Rep #: [id number] : 1975 F 42 From: Karen Lagos MD PCP: Nancy Lucas DO Status: REG CLI Study: Spine Lumbar (Routine) Date of Exam: 02/25/18 Exam# [id number] Ordering Dr: Nancy Lucas DO ADDENDU M by Karen Lagos MD on 02/26/18 at 1659 ADDENDUM ADDENDUM comparison x-ray 02/15/2018: L3-4 f oraminal disc protrusion is not seen on the prior x-ray. Electronically Signed: Karen Lagos MD at 16:59 EDT Tel , Service support , 8 1659 Date cc: Nancy Lucas DO * Signed ADDENDUM by Karen Lagos MD on 02/26/18 at 1659 MRI/Spine Lumbar (Routine) 02/26/18 1706 Date cc: Jackie Lucas DO * Signed STUDY: MRI LUMBAR SPINE WITHOUT CONTRAST REASON FOR EXAM: Female, 42 years old. Back pain and left radiculopathy. TECHNIQUE: Standardized fat and water weighted pulse seque nces were obtained in the sagittal and axial planes. COMPARISON: None FINDINGS: T12-L1: Normal endplates. Normal disc height, hydration and morphology. Normal bila teral facet joints. Normal central canal and bilateral lateral recesses. Normal bilateral intervertebral neural foramina. Normal lumbar lordosis. There is no substantial scoliosis. Normal conus medulla ris that terminates at the L1 level. L1-2: Normal endplates. Normal disc height, hydration and morphology. Normal bilateral facet joints. Normal central canal and bilateral lateral recesses. Normal roxy ateral intervertebral neural foramina. L2-3: Normal endplates. Normal disc height, hydration and morphology. Normal bilateral facet joints. Normal central canal and bilateral lateral recesses. Normal b ilateral intervertebral neural foramina. L3-4: Normal endplates. Normal disc height, hydration and morphology. There is a small left inferior foraminal disc protrusion. No evidence of nerve root displa cement. Normal bilateral facet joints. Normal central canal and bilateral lateral recesses. Normal bilateral intervertebral neural foramina. L4-5: Normal endplates. Normal disc height, hydration and mo rphology. Normal bilateral facet joints. Normal central canal and bilateral lateral recesses. Normal bilateral intervertebral neural foramina. L5-S1: Normal endplates. Normal disc height, hydration and morphology. Normal bilateral facet joints. Normal central canal and bilateral lateral recesses. Normal bilateral intervertebral neural foramina. Normal visualized sacral ala. Normal visualized parasp inous soft tissue structures. 0020 MRI/Spine Lumbar (Routine) IMPRESSION: 1. Small L3-4 left foraminal disc protrusion without obvious nerve root disp lacement. Otherwise normal study. Electronically Signed: Karen Lagos MD at 18:44 EDT Tel , Service support , CC: Nancy Lucas DO Lieutenant Fire Fighter: Signed 15-Feb-2018 HIP, UNI W/ Pelvis 2-3 Views Result: Comments: See Note; NOTES: [facility] Imaging Services [address] [place] [address] HIP, UNI W/ Pelvis 2-3 Views MR#: [id number] Acct: [id number] Name: MANDA JEFFERS Rep #: [id number] : 1975 F 42 From: Sonu Fuentes DO PCP: Nancy Lucas DO Status: REG CLI Study: HIP, UNI W/ Pelvis 2-3 Views Date of Exam: 02/15/18 Exam# [id number] Ordering Dr: Jenelle London NP-Rose STUDY: X-RAY - PELVIS AND LEFT HIP [...] the pelvis and hip. Electronically Signed: Sonu DO Alfredo at 11:24 EDT Tel , Service support , CC: NOLA London; Nancy Lucas DO Lieutenant Fire Fighter: Signed 15-Feb-2018 L/S Spine Min 4 Views Result: Comments: See Note; NOTES: [facility] Services [address] [place] [address] L/S Spine Min 4 Views MR#: [id number] Acct: [id number] Name: MANDA JEFFERS Rep #: [id number] : 1975 F 42 From: Leanna Pérez MD PCP: Nancy Lucas DO Status: REG CLI Study: L/S Spine Min 4 Views Date of Exam: 02/15/18 Exam# [id number] Ordering Dr: Jenelle London STUDY: X-RA Y [...] , CC: NOLA London; Nancy Lucas DO Lieutenant Fire Fighter: Signed 10-Aug-2017 Chest PA and Lateral Result: Comments: See Note; NOTES: [facility] Imaging Services [address] [place] [address] Chest PA and Lateral MR#: [id number] Acct: [id number] Name: MANDA JEFFERS Rep #: [id number] : 1975 F 42 From: Rivera Young MD PCP: Nancy Lucas DO Status: REG CLI Study: Chest PA and Lateral Date of Exam: 08/10/17 Exam# [id number] Ordering Dr: Jenelle London STUDY: X-R AY [...] Tel , Service support , CC: NOLA Lucas DO Lieutenant Fire Fighter: Signed 14-Feb-2016 CTA Chest W/WO Contrast Result: Comments: See Note; NOTES: [facility] Services [address] [place] [address] Verdana 4d CTA Chest W/WO Contrast MR#: [id number] Acct: [id number] Name: MANDA JEFFERS Rep #: [id number] : 1975 F 40 From: Chele Kulkarni DO PCP: Nancy Lucas DO Status: REG CLI Study: CTA Chest W/WO Contrast Date of Exam: 02/14/16 Exam# [id number] Ordering Dr: Nancy Lucas DO STUDY: CTA [...] Chele Kulkarni DO at 13:32 EDT Tel [phone], Service support [phone], CC: Nancy Lucas DO Lieutenant Fire Fighter: Signed 02-Nov-2015 Lumbar Spine 2 or 3 Views Result: Comments: See Note; NOTES: [facility] Services [address] [place] [address] Verdana 4d Lumbar Spine 2 or 3 Views MR#: [id number] Acct: [id number] Name: MANDA BERNAL Rep #: [id number] : 1975 F 40 From: Lubna Husain MD PCP: Nancy Lucas DO Status: REG CLI Study: Lumbar Spine 2 or 3 Views Date of Exam: 11/02/15 Exam# [id number] Ordering Dr: Nancy Lucas DO STUDY: X-RAY [...] at 16:25 EDT Tel , Service support [phone], RAD/Lumba r Spine 2 or 3 Views IMPRESSION: Degenerative change in the lumbar spine. No evidence of an acute fracture. Electronically Signed: Lubna Husain MD at 16:25 EDT Tel , Serv ice support [phone], CC: Nancy Lucas DO Lieutenant Fire Fighter: Signed 10-Oct-2014 Knee 4 or More Views Result: Comments: See Note; NOTES: [facility] Services [address] [place] [address] Radiology Report MR#: [id number] Acct: [id number] Name: MANDA JEFFERS Rep #: [id number] : 1975 F 39 From: Amarjit Patel MD PCP: Nancy Lucas DO Status: REG CLI Study: Knee 4 or More Views Date of Exam: 10/10/14 Exam# [id number] Ordering Dr: Georgette Kerr MD STUDY: X-RAY [...] Amarjit Patel MD at 16:09 EDT Tel [phone], Service support [phone], RAD/Knee 4 or More Views IMPRESSION: Degenerative arthrosis. El ectronically Signed: Amarjit Patel MD at 16:09 EDT Tel [phone], Service support [phone], CC: Nancy Lucas DO; Georgette Kerr MD Lieutenant Fire Fighter: Signed 10-Oct-2014 Knee 4 or More Views Result: Comments: See Note; NOTES: [facility] Services [address] [place] [address] Radiology Report MR#: [id number] Acct: [id number] Name: MANDA JEFFERS Rep #: [id number] : 1975 F 39 From: Amarjit Patel MD PCP: Nancy Lucas DO Status: REG CLI Study: Knee 4 or More Views Date of Exam: 10/10/14 Exam# [id number] Ordering Dr: Georgette Kerr MD STUDY: X-RAY [...] Amarjit Patel MD at 16:09 EDT Tel [phone], Service support [phone], RAD/Knee 4 or More Views IMPRESSION: Normal x-ray examination of the knee. Electr onically Signed: Amarjit Patel MD at 16:09 EDT Tel [phone], Service support [phone], CC: Nancy Lucas DO; Georgette Kerr MD Lieutenant Fire Fighter: Signed 09-Oct-2014 Brain W/WO Contrast Result: Comments: See Note; NOTES: [facility] Imaging Services [address] [place] [address] MRI Report MR#: [id number] Acct: [id number] Name: MANDA JEFFERS Rep #: [id number] : 1975 F 39 From: Kel Vasquez DO PCP: Nancy Lucas DO Status: REG CLI Study: Brain W/WO Contrast Date of Exam: 10/09/14 Exam# [id number] Ordering Dr: Nancy Lucas DO STUDY : [...] at 11:41 EDT Tel , Service support [phone], CC: Nancy Lucas DO Lieutenant Fire Fighter: Signed 08-Jun-2014 Spine Cervical (Routine) Result: Comments: See Note; NOTES: [facility] Services [address] [place] [address] MRI Report MR#: [id number] Acct: [id number] Name: MANDA JEFFERS Rep #: [id number] D OB: 1975 F 38 From: Vladimir Llamas MD PCP: Nancy Lucas DO Status: REG CLI Study: Spine Cervical (Routine) Date of Exam: 06/08/14 Exam# [id number] Ordering Dr: Henrique Cadena MD STUDY: MR [...] FACR at 20:18 EST , Service support [phone], CC: Henrique Cadena MD; Nancy Lucas DO Lieutenant Fire Fighter: Signed 29-May-2014 Cerv Spine 2 or 3 Views Result: Comments: See Note; NOTES: [facility] Services [address] [place] [address] Radiology Report MR#: [id number] Acct: [id number] Name: MANDA JEFFERS Rep #: [id number] : 1975 F 38 From: Kaycee Suero MD PCP: Nancy Lucas DO Status: [facility] Study: Cerv Spine 2 or 3 Views Date of Exam: 05/29/14 Exam# [id number] Ordering Dr: Henrique Cadena MD STUDY: X-RAY [...] at 22:44 EST Tel , Service support [phone], CC: Henrique Cadena MD; Nancy Lucas DO Lieutenant Fire Fighter: Signed 23-Jan-2014 Chest PA and Lateral Result: Comments: See Note; NOTES: [facility] Services [address] [place] [address] Radiology Report MR#: [id number] Acct: [id number] Name: MANDA JEFFERS Rep #: [id number] : 1975 F 38 From: Amarjit Patel MD PCP: Nancy Lucas DO Status: REG CLI Study: Chest PA and Lateral Date of Exam: 01/23/14 Exam# [id number] Ordering Dr: Micki Garcia DO STUDY : [...] Coronel i, MD at 14:51 EDT Tel [phone], Service support [phone], CC: Micki Garcia DO; Nancy Lucas DO Lieutenant Fire Fighter: Signed 12-Jan-2014 Bilat Scrn Digital & CAD Result: Comments: See Note; NOTES: [facility] Imaging Services [address] [place] [address] Breast Imaging Report MR#: [id number] Acct: [id number] Name: MANDA JEFFERS Rep #: [id number] : 1975 F 38 From: Amarjit Patel MD PCP: Nancy Lucas DO Status: REG CLI Exam# [id number] Ordering Dr: Nancy Lucas DO MAMMOGRAPHY - [...] Amarjit Patel MD at 9:46 EDT Tel [phone], Service support [phone], CC: Nancy Lucas DO Lieutenant Fire Fighter: Signed Family History Unknown Family Member Name [...] smoker Vital Signs Date Test Result Details 3-Dcu-664848:20 Temperature 98.2 f Comments: Method: Temporal Pulse 100 /min Comments: Pattern: Regular Respiration Rate 17 /min Comments: Pattern: Unlabored O2 SAT 97 % Comments: Room air BP Systolic 128 mm[Hg] Comments: Patient Position: Sitting; Cuff Location: Left Arm; Cuff Size: Standard BP Diastolic 88 mm[Hg] Comments: Patient Position: Sitting; Cuff Location: Left Arm; Cuff Size: Standard Weight 242.5 lb Height 62 in Body Mass Index Calculated 44.35 kg/m2 Body Surface Area Calculated 2.07 m2 67-Kpn-452404:37 Comments: pain 6-7 on avg and up [...] kg/m2 Body Surface Area Calculated 2.07 m2 36-Ugw-194639:43 Comments: Pulse recheck 113-in pain Temperature 98.9 [...] 2.05 m2 Results Date Description Value Details 8-Vvu-128786:23 Rapid Strep Test, Office (39971) Rapid Strep Test, Office Negative (Normal) 09-Yjf-986772:20 Culture, Nose Comments: [facility] [address] [place], [address] CUN See Note (Normal) Comments: Gram StainGram [...] <=0.5 S(NF) indicates non- formulary drug at [facility]. Approval by Infectious Disease Specialist required before non- formulary drugs may be ordered and/or dispensed. * CLSI guidelines does not recommend testing of cephalosporins. This inte rpretation is deduced from Beta-lactam/penicillin results. 72-Ylm-97536:30 BRICE CULTURE-OTHER (57809) Comments: PATIENT NOT FASTINGPERFORMED BY: [facility] Cfgpes4899 [facility] [id number] Information: THROAT SRC:TH Result 1 RRF (Normal) Comments: Routine respiratory nicole Upper Respiratory Culture Final report (Normal) 84-Hpz-453324:01 CBC W/Diff, Automated Comments: [facility] [address] [place], [address] Absolute Lymph 2.10 {X10_3/ul} (Normal) Range: 0.83-4.51 [...] 4.2-5.4 WBC 7.2 K/mm3 (Normal) Range: 4.4-11.0 79-Qnb-015841:01 Comprehensive Metabolic Profil Comments: [facility] [address] [place], [place], [id number] GAP 10 (Normal) Range: 5-15 CO2 23.0 [...] 7-18 GLU 74 mg/dL (Normal) Range: 70-110 24-Urz-553524:07 D-Dimer Quantitative (DVT/PE) Comments: Order Date: 02/14/16Order Info: [id number] - D-DIMEROrder Date: 02/14/16Order Info: [id number] - [facility] [address] [place], [address] D-DIMER QUANT 0.65 {FEU/ug/m} (Abnormal) Range: 0.27-0.49 Comments: D-Dimer ELEVATED (>0.49): Additional studies and clinicalassessments are indicated to conclude diagnosis of:Deep Vein Thrombosis (DVT) or Pulmonary Embolism (PE)CRITICAL VALUE REPEATED AND VERIFIED. CALLED TO [facility] INTER[facility] LFKOARVY95/13/16 1404 Nia Xiong.RESULTS READ BACK BY SAME . 24-Vpw-961473:28 CBC (AUTO) (54014) Comments: PATIENT NOT FASTINGPERFORMED BY: [facility] Hniyjj5172 [facility] [id number] Platelets 384 {x10E3/uL} (Abnormal) Range: 150-379 RDW 15.6 % (Abnormal) Range: 12.3-15.4 MCHC 31.8 g/dL (Normal) Range: 31.5-35.7 MCH 28.0 pg (Normal) Range: 26.6-33.0 MCV 88 fL (Normal) Range: 79-97 Hematocrit 34.9 % (Normal) Range: 34.0-46.6 Hemoglobin 11.1 g/dL (Normal) Range: 11.1-15.9 RBC 3.96 {x10E6/uL} (Normal) Range: 3.77-5.28 WBC 9.0 {x10E3/uL} (Normal) Range: 3.4-10.8 51-Sdi-83937:43 CBC W/Diff, Automated Comments: [facility] [address] [place], [address] Absolute Lymph 2.38 {X10_3/ul} (Normal) Range: 0.83-4.51 [...] 4.2-5.4 WBC 11.6 K/mm3 (Abnormal) Range: 4.4-11.0 03-Kzl-55013:43 Comprehensive Metabolic Profil Comments: [facility] [address] [place], [place], [address] GAP 10 (Normal) Range: 5-15 CO2 24.0 [...] 7-18 GLU 80 mg/dL (Normal) Range: 70-110 62-Rpw-45747:43 Lipid Profile Comments: [facility] [address] [place] [address], [address] VLDL 26 mg/dL (Normal) Range: 5-40 LDL [...] 200-240 mg/dL Borderline >240 mg/dL High Risk 9-Czh-913039:00 Miscellaneous Lab Procedure Comments: Comments: VECTRA SENT OUT SST REFTest(s) Ordered: VECTRATest performed at:[facility] [address] [place] [id number] [facility] LAB TEST (Normal) Comments: Sent directly to testing facility per ordering physician.10/14/14 1524 LWOODS 5-Mgv-674818:2 C-Reactive 6.6 mg/L (Abnormal) Comments: PATIENT NOT FASTINGPERFORMED BY: JENNIFER HSystemcarolina [place] [id number] Protein, Quant Range: 0.0-4.9 2-Fxd-481711:28 CBC With Differential/Platelet Comments: PATIENT NOT FASTINGPERFORMED BY: [facility]6370 [facility] [id number] Information: [id number], [id number] Immature Grans (Abs) 0.0 {x10E3/uL} (Normal) Range: [...] 3.77-5.28 WBC 7.3 {x10E3/uL} (Normal) Range: 3.4-10.8 3-Ivk-947484:28 Comp. Metabolic Panel (14) Comments: PATIENT NOT FASTINGPERFORMED BY: [facility]6370 [facility] [id number] ALT (SGPT) 19 [iU]/L (Normal) Range: 0-32 [...] mg/dL (Normal) Comments: PATIENT NOT FASTINGPERFORMED BY: [facility] HospitalIcsuve5128 [facility] [id number] :28 Range: 1.6-2.6 Sedimentation 7 mm/h (Normal) Comments: PATIENT NOT FASTINGPERFORMED BY: [address] [id number] :28 Rate-Westergren Range: 0-32 TSH 1.480 {uIU/mL} Comments: PATIENT NOT FASTINGPERFORMED BY: [address] [id number] :28 (Normal) Range: 0.450-4.500 Vitamin B12 505 pg/mL (Normal) Comments: PATIENT NOT FASTINGPERFORMED BY: [facility]6370 [facility] [id number] :28 Range: 211-946 Vitamin D, 25-Hydroxy 26.7 ng/mL Comments: PATIENT NOT FASTINGPERFORMED BY: JENNIFER [facility] Vxmdkb1631 [facility] [id number] :28 (Abnormal) Range: 30.0-100.0 Comments: Vitamin D deficiency has been defined by the Maxwell ofMedicine and an Endocrine Society practice guideline as alevel of serum 25-OH vitamin D less than 20 ng/mL (1,2).The Endocrine Society went on to further define vitamin Dinsufficiency as a level between 21 and 29 ng/mL (2).1. IOM (Maxwell of Medicine). 2010. Dietary reference intakes for calcium and D. [place]: The National Academies Press.2. Haylee MF, Heriberto KIMBALL, Kermit ERWIN, et al. Evaluation, treatment, and prevention of vitamin D deficiency: an Endocrine Society clinical practice guideline. JCEM. 2010; 96(7):1911-30. :08 HgA1C , Office (87522) HgA1C , Office 5.4 % (Normal) Range: 4.6 - 7.1 :08 Blood Glucose , Office (93778) Blood Glucose , Office 87 (Normal) 53-Ial-583116:47 CBC W/Diff, Automated Comments: Test performed at:[facility] [address] [place] [address] Absolute Lymph 1.92 {X10_3/ul} (Normal) [...] 4.2-5.4 WBC 7.7 K/mm3 (Normal) Range: 4.4-11.0 79-Kdk-428660:47 Comprehensive Metabolic Profil Comments: Test performed at:[facility] [address] [place] [address] GAP 5 (Normal) Range: 5-15 CO2 26.0 [...] directly to testing facility per ordering physician.01/18/14 1109 [facility] Plan of Care Name Dates Details Instructions BMI 40.0-44.9, adult : Follow up if no improvement or if symptoms worsen Indication: BMI 40.0-44.9, adult Sinusitis, acute : *URI Treatment Indication: Sinusitis, acute Sinusitis, acute : *URI Symptoms Indication: Sinusitis, acute Sinusitis, acute : *Antibiotic Usage Education - Female Indication: Sinusitis, acute BMI 40.0-44.9, adult : Eprescribed prescriptions (G8553) Indication: BMI 40.0-44.9, adult Nonsmoker : Follow up if no improvement [...] GERD Education Indication: Acid reflux Planned Observations THROAT CULTURE (92357)Indication: Sore throat On: 3-Iif-530766:23 Request Rapid Flu (84552 x 2)Indication: Flu-like symptoms On: 3-Aip-532577:23 Request Rapid Strep Test, Office ([id number])Indication: Sore throat On: 14-Cem-067640:08 Request Rapid Flu (27686 x 2)Indication: Flu-like symptoms On: 93-Gdv-473801:08 Request D-Dimer (54086)Indication: Shortness of breath at rest On: 47-Qup-044471:38 Request Rapid Flu (60558 x 2)Indication: Vomiting and diarrhea On: 2-Lsf-681747:04 Request VITAMIN B-12 (CYANOCOBALAMIN) ([id number])Indication: Electrical shock sensation On: :14 Request SED RATE ERYTHROCYTE ([id number])Indication: Electrical shock sensation On: :14 Request C-REACTIVE PROTEIN (97571)Indication: Electrical shock sensation On: :14 Request MAGNESIUM (41651)Indication: Electrical shock sensation On: :14 Request CALCIFIDIOL (50512) VIT D 25Indication: Electrical shock sensation On: :13 Request TSH ([id number])Indication: Electrical shock sensation On: :13 Request CBC W/AUTO DIFF WBC ([id number])Indication: Electrical shock sensation On: :13 Request METABOLIC PANEL, COMPREHENSIVE (24474)Indication: Electrical shock sensation On: 3-Aam-633627:13 Request HgA1C , Office ([id number])Indication: FAMILY HISTORY OF DIABETES MELLITUS On: 45-Bsh-371349:33 Request Planned Procedures Aerosol Treatment ([id number])By: Yakelin On: 05-May-2018 Intent Suzy MCDONALD MRI OF LUMBAR SPINE WITH AND On: 23-Feb-2018 Intent WITHOUT CONTRAST ([id number])By: Suzy Hamlin CNP PHYSICAL THERAPY ([id number])By: On: 15-Feb-2018 Intent Jenelle London Toradol Injection, 30 mg On: 15-Feb-2018 Intent ([id number])By: Jenelle London Radiology - Hip - LeftBy: Surya On: 15-Feb-2018 Intent Jenelle Comments: Call with wet read Radiology - Lumbar SpineBy: On: 15-Feb-2018 Intent Jenelle London Comments: Call with wet read Toradol Injection, 30 mg On: 15-Feb-2018 Intent ([id number])By: Jenelle London Comments: [id number]/1MLMEGAN, ASSEMBLER SEMICONDUCTOR Flu Vaccine (Quadrivalent) 58030Vz: On: 15-Feb-2018 Intent Jenelle London Comments: Lot #[id number]/30/2019Site-[employer] dltd, IMDose prefilled syringegiven by:Benitez Allan LPNVIS reviewed and ABN signed Aerosol Treatment ([id number])By: On: 11-Aug-2017 Intent Jenelle London Comments: Exp wheeze in both lungs after aerosol treatment. 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 Solu -Medrol Injection, 125 mg On: 05-Aug-2017 Intent ([id number])By: Suzy Hamlin CNP Comments: lot [id number] 09/2019left [id number], ASSEMBLER [employer]CTOR Aerosol Treatment ([id number])By: Yakelin On: 05-Aug-2017 Intent Suzy MCDONALD ELECTROCARDIOGRAM, COMPLETE (ECG) On: 05-Aug-2017 Intent ([id number])By: Suzy Hamlin CNP CT - Chest with PE ProtocolBy: On: 14-Feb-2016 Intent Nancy Lucas DO, DO, Kathleen EKG ([id number])By: Nancy Lucas DO On: 14-Feb-2016 Intent Nancy Lucas DO Aerosol Treatment ([id number])By: Lance On: 14-Feb-2016 Nancy Montenegro DO, DO, Kathleen Comments: more a/e Spirometry (21351)By: Lance CAMARA, On: 14-Feb-2016 Intent Nancy Shields DO Comments: some restriction Radiology - Lumbar SpineBy: Lance On: 02-Nov-2015 Nancy Montenegro DO, DO, Kathleen Comments: 2-3 views X-RAY OF LUMBAR SPINE, AP VIEW On: 02-Nov-2015 Intent ([id number])By: Nancy Lucas DO, DO, Kathleen Phenergan Injection, up to 50 mg On: 05-Jun-2015 Intent ([id number])By: Suzy Hamlin CNP IV Needle placement (51221)By: On: 05-Jun-2015 Intent Suzy Hamlin CNP INFUSION, NORMAL SALINE SOLUTION , On: 05-Jun-2015 Intent 1000 CC (Special Coverage Instructions Apply. See MCM: 2049) ([id number])By: Suzy Hamlin CNP MRI - BrainBy: Nancy Lucas DO On: 02-Oct-2014 Intent Nancy Lucas DO Solu -Medrol Injection, 125 mg On: 03-Feb-2014 Intent ([id number])By: Suzy Hamlin CNP Aerosol Treatment ([id number])By: Yakelin On: 03-Feb-2014 Intent Suzy MCDONALD Radiology - Chest- PA and LatBy: On: 23-Jan-2014 Intent Micki Garcia DO Comments: stat call results Aerosol Treatment (11056)By: Jose On: 23-Jan-2014 Intent Micki CAMARA MAMMOGRAM, SCREENING, BOTH BREAST On: 12-Jan-2014 Intent ([id number])By: Nancy Lucas DO, DO, Kathleen Planned Medications [...] Suzy Hamlin CNP Instructions Name Dates Details BMI 40.0-44.9, adult : How to access health information online Indication: BMI 40.0-44.9, adult BMI 40.0-44.9, adult : How to access health information online - Detail Indication: BMI 40.0-44.9, adult BMI 40.0-44.9, adult : Patient Instructions Indication: BMI 40.0-44.9, adult Nonsmoker : How to access health information [...] lipoid disorders) : DISCONTINUED - LIPID PANEL (10139) Indication: SCREENING FOR HYPERLIPIDEMIA (Renamed from Encounter [...] Indication: Acid reflux Encounters Office Visit On: 05-May-2018 13:15 Encounter Reason: Flu Like Symptoms - Symptoms include fever, chills, body aches, runny nose, sore throat, hoarseness, dry cough and productive cough. Onset was 4 day(s) ago. Associated symptoms include fatigue, nausea a End: 05-May-2018 13:41 nd diarrhea. Note for Flu like symptoms: Feverish in last 24 hrs. has blocked and runny nose on and off, not treated for flu in last 3-7 days, has used nasal saline, some nose bleed. Facial surgery on nose, for cancer 2-3 years ago. In Jun had nasal baloon surgery, but still get sinus infection.Encounter Diagnosis: Nonsmoker, BMI 40.0-44.9, adult, Flu-like symptoms, Sore throat, Sinusitis, acute, Cough [facility] Office Visit On: 23-Feb-2018 11:35 Encounter Reason: [...] sinus surgery had balloon sinuplasty done in 2017Encounter Diagnosis: Inflammatory polyarthritis, Nonsmoker, BMI 40.0-44.9, adult, [...] for Cough: was given IV fluid in [place] [facility] on July 31Cough in chest on [...] routine). Symptoms include lower back pain.Encounter Diagnosis: Hives, Sciatica of left side, End: 02-Nov-2015 12:23 [...]
--- OUTSIDE RECORDS SUMMARY | 2018-07-26 07:59 | XMS RPT_ITS | Continuity of Care Document ---
:1975 Author Organization [facility] Address [address] [facility] [address] [place] [address] Phone Care Team Providers Name Role Phone Nancy Lucas DO Unavailable Physical Therapy, [facility] Unavailable Matthew Becker MD Unavailable Rony Lucas Unavailable Cruz Kumari Unavailable Unavailable Jerrell MANAGER GALLERYSailaja Unavailable Unavailable Slaalan WAGNER, Nona Unavailable Unavailable Jenelle London Unavailable Susan Acevedo Unavailable Unavailable Suzy Hamlin CNP Unavailable Unavailable Unavailable Problems Name Dates Details [...] immunization against influenza) (Z23, V04.81) Status: Active Nonsmoker (Z78.9, V49.89) Status: Active 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 Status: Active RA Status: Active Recurrent sinus infections (J32.9, 473.9) [...] Ordered:11-Aug-2017 Sindi Slater Start : 11-Aug-2017 Active Levocetirizine Dihydrochloride 5 MG Oral Tablet 1 (one) Tablet qd for 0 days Quantity: 90 {Tablet} Refills: 3 Ordered:06-Apr-2017 Rachele Lucas DO, DO, Kathleen Start : 06-Apr-2017 Active Medrol 4 MG Oral Tablet Therapy Pack 1 (one) Milligram TAD for 0 days Quantity: 1 {Package} Refills: 0 Ordered:16-Feb-2018 Suzy Hamlin CNP Start : 16-Feb-2018 Active Comments:take with food [...] DO, DO, Kathleen Start : 26-Aug-2017 Active Orencia ClickJect 125 MG/ML Subcutaneous Solution Auto-injector 1 (one) Milliliter once a week for 30 days Quantity: 4 {Milliliter} Refills: 3 Ordered:14-Dec-2017 Suzy Hamlin CNP Start : 14-Dec-2017 Active PredniSONE 10 MG Oral Tablet 3 (three) Tablet pills for 3 days 2 for 3 days 1 for 3 day with food am for 0 days Quantity: 18 {Tablet} Refills: 0 Ordered:05-Aug-2017 Suzy Hamlin CNP Start : 05-Aug-2017 Active Comments:with food Augmentin 875-125 MG Oral Tablet 1 (one) Tablet bid for 14 days Quantity: 28 {Tablet} Refills: 0 Ordered:14-Dec-2017 Suzy Hamlin CNP Start : 14-Dec-2017 End : 28-Dec-2017 Inactive CYMBALTA, 60MG (Oral Capsule Delayed Release Particles) 1 (one) Capsule DR Part Capsule DR Part qd for 30 days Quantity: 30 {Capsule} Refills: 0 Ordered:20-Feb-2015 Karen Madrid MD Start : 02-Oct-2014 End : 01-Nov-2014 Inactive Comments:per shivam Flonase 50 MCG/ACT Nasal Suspension 2 (two) [...] week for 30 days Refills: 0 Ordered:05-Aug-2017 Rosealan WAGNERNona Start : 31-Aug-2013 End : 05-Aug-2017 Inactive Mobic 15 MG Oral Tablet 1 (one) Tablet Tablet bid for 30 days Refills: 0 Ordered:05-Aug-2017 Rosealan WAGNERNona Start : 02-Nov-2015 End : 05-Aug-2017 Inactive Neurontin 300 MG Oral Capsule 1 (one) Capsule Capsule qhs for 5 days then bid for 0 days Quantity: 60 {Capsule} Refills: 3 Ordered:30-Mar-2017 Montrell WAGNER Nona Start : 02-Nov-2015 End : 30-Mar-2017 Inactive OXYCODONE-ACETAMINOPHEN, 5-325MG (Oral Tablet) 1 (one) Tablet Tablet bid for 30 days Quantity: 30 {Tablet} Refills: 0 Ordered:20-Feb-2015 Karne Madrid MD Start : 02-Oct-2014 End : 01-Nov-2014 Inactive Comments:per basali Singulair 10 MG Oral Tablet 1 (one) Tablet Tablet qd for 0 days Quantity: 90 {Tablet} Refills: 0 Ordered:05-Aug-2017 Montrell WAGNER Nona Start : 11-Oct-2014 End : 05-Aug-2017 Inactive [...] week for 30 days Refills: 0 Ordered:05-Jun-2015 Nona Stock LPN Start : 12-Jan-2014 End : 05-Jun-2015 [...] 2-3 Views Result: Comments: See Note; NOTES: [facility] Services [address] [place] [address] HIP, UNI W/ Pelvis 2-3 Views MR#: [id number] Acct: [id number] Name: MANDA JEFFERS Rep #: [id number] : 1975 F 42 From: Sonu Fuentes DO PCP: Lance DO,Nancy Status: REG CLI Study: HIP, UNI W/ Pelvis 2-3 Views Date of Exam: 02/15/18 Exam# [id number] Ordering Dr: Jenelle London STUDY: X-RAY - [...] , CC: NOLA London; Nancy Lucas DO Business Development Executive: Signed 15-Feb-2018 L/S Spine Min 4 Views Result: Comments: See Note; NOTES: [facility] Imaging Services [address] [place] [address] L/S Spine Min 4 Views MR#: [id number] Acct: [id number] Name: MANDA JEFFERS Rep #: [id number] : 1975 F 42 From: Leanna Pérez MD PCP: Nancy Lucas DO Status: REG CLI Study: L/S Spine Min 4 Views Date of Exam: 02/15/18 Exam# [id number] Ordering Dr: Jenelle London STUDY: X-RA Y [...] , CC: NOLA London; Nancy Lucas DO Business Development Executive: Signed 10-Aug-2017 Chest PA and Lateral Result: Comments: See Note; NOTES: [facility] Imaging Services [address] [place] [address] Chest PA and Lateral MR#: [id number] Acct: [id number] Name: MANDA JEFFERS Rep #: [id number] : 1975 F 42 From: Rivera Young MD PCP: Nancy Lucas DO Status: REG CLI Study: Chest PA and Lateral Date of Exam: 08/10/17 Exam# [id number] Ordering Dr: Jenelle London STUDY: X-R AY [...] , CC: NOLA London; Nancy Lucas DO Business Development Executive: Signed 14-Feb-2016 CTA Chest W/WO Contrast Result: Comments: See Note; NOTES: [facility] [address] [place] [address] Verdana 4d CTA Chest W/WO Contrast MR#: [id number] Acct: [id number] Name: MANDA JEFFERS Rep #: [id number] : 1975 F 40 From: Chele Kulkarni DO PCP: Nancy Lucas DO Status: REG CLI Study: CTA Chest W/WO Contrast Date of Exam: 02/14/16 Exam# [id number] Ordering Dr: Nancy Lucas DO STUDY: CTA [...] Chele Kulkarni DO at 13:32 EDT Tel [phone], Service support [phone], CC: Nancy Lucas DO Business Development Executive: Signed 02-Nov-2015 Lumbar Spine 2 or 3 Views Result: Comments: See Note; NOTES: [facility] Services [address] [place] [address] Verdana 4d Lumbar Spine 2 or 3 Views MR#: [id number] Acct: [id number] Name: MANDA BERNAL Rep #: [id number] : 1975 F 40 From: Lubna Husain MD PCP: Nancy Lucas DO Status: REG CLI Study: Lumbar Spine 2 or 3 Views Date of Exam: 11/02/15 Exam# [id number] Ordering Dr: Nancy Lucas DO STUDY: X-RAY [...] at 16:25 EDT Tel , Service support [phone], RAD/Lumba r Spine 2 or 3 Views IMPRESSION: Degenerative change in the lumbar spine. No evidence of an acute fracture. Electronically Signed: Lubna Husain MD at 16:25 EDT Tel , Serv ice support [phone], CC: Nancy Lucas DO Business Development Executive: Signed 10-Oct-2014 Knee 4 or More Views Result: Comments: See Note; NOTES: [facility] Services [address] [place] [address] Radiology Report MR#: [id number] Acct: [id number] Name: MANDA JEFFERS Rep #: [id number] : 1975 F 39 From: Amarjit Patel MD PCP: Nancy Lucas DO Status: REG CLI Study: Knee 4 or More Views Date of Exam: 10/10/14 Exam# [id number] Ordering Dr: Georgette Kerr MD STUDY: X-RAY [...] Amarjit Patel MD at 16:09 EDT Tel [phone], Service support [phone], RAD/Knee 4 or More Views IMPRESSION: Degenerative arthrosis. El ectronically Signed: Amarjit Patel MD at 16:09 EDT Tel [phone], Service support [phone], CC: Nancy Lucas DO; Georgette Kerr MD Business Development Executive: Signed 10-Oct-2014 Knee 4 or More Views Result: Comments: See Note; NOTES: [facility] Imaging Services [address] [place] [address] Radiology Report MR#: [id number] Acct: [id number] Name: MANDA JEFFERS Rep #: [id number] : 1975 F 39 From: Amarjit Patel MD PCP: Nancy Lucas DO Status: REG CLI Study: Knee 4 or More Views Date of Exam: 10/10/14 Exam# [id number] Ordering Dr: Georgette Kerr MD STUDY: X-RAY [...] Amarjit Patel MD at 16:09 EDT Tel [phone], Service support [phone], RAD/Knee 4 or More Views IMPRESSION: Normal x-ray examination of the knee. Electr onically Signed: Amarjit Patel MD at 16:09 EDT Tel [phone], Service support [phone], CC: Nancy Lucas DO; Georgette Kerr MD Business Development Executive: Signed 09-Oct-2014 Brain W/WO Contrast Result: Comments: See Note; NOTES: [facility] Services [address] [place] [address] MRI Report MR#: [id number] Acct: [id number] Name: MANDA JEFFERS Rep #: [id number] : 1975 F 39 From: Kel Vasquez DO PCP: Nancy Lucas DO Status: REG CLI Study: Brain W/WO Contrast Date of Exam: 10/09/14 Exam# [id number] Ordering Dr: Nancy Lucas DO STUDY : [...] at 11:41 EDT Tel , Service support [phone], CC: Nancy Lucas DO Business Development Executive: Signed 08-Jun-2014 Spine Cervical (Routine) Result: Comments: See Note; NOTES: [facility] [address] [place] [address] MRI Report MR#: [id number] Acct: [id number] Name: MANDA JEFFERS Rep #: [id number] D OB: 1975 F 38 From: Vladimir Llamas MD PCP: Nancy Lucas DO Status: REG CLI Study: Spine Cervical (Routine) Date of Exam: 06/08/14 Exam# [id number] Ordering Dr: Henrique Cadena MD STUDY: MR [...] FACR at 20:18 EST , Service support [phone], CC: Henrique Cadena MD; Nancy Lucas DO Business Development Executive: Signed 29-May-2014 Cerv Spine 2 or 3 Views Result: Comments: See Note; NOTES: [facility] [address] [place] [address] Radiology Report MR#: [id number] Acct: [id number] Name: MANDA JEFFERS Elen Rep #: [id number] : 1975 F 38 From: Kaycee Suero MD PCP: Nancy Lucas DO Status: REG CLI Study: Cerv Spine 2 or 3 Views Date of Exam: 05/29/14 Exam# [id number] Ordering Dr: Henrique Cadena MD STUDY: X-RAY [...] at 22:44 EST Tel , Service support [phone], CC: Henrique Cadena MD; Nancy Lucas DO Business Development Executive: Signed 23-Jan-2014 Chest PA and Lateral Result: Comments: See Note; NOTES: [facility] Services [address] [place] [address] Radiology Report MR#: [id number] Acct: [id number] Name: MANDA JEFFERS Rep #: [id number] : 1975 F 38 From: Amarjit Patel MD PCP: Nancy Lucas DO Status: REG CLI Study: Chest PA and Lateral Date of Exam: 01/23/14 Exam# [id number] Ordering Dr: Micki Garcia DO STUDY : [...] Coronel i, MD at 14:51 EDT Tel [phone], Service support [phone], CC: Micki Garcia DO; Nancy Lucas DO Business Development Executive: Signed 12-Jan-2014 Bilat Scrn Digital & CAD Result: Comments: See Note; NOTES: [facility] Services [address] [place] [address] Breast Imaging Report MR#: [id number] Acct: [id number] Name: MANDA JEFFERS Rep #: [id number] : 1975 F 38 From: Amarjit Patel MD PCP: Nancy Lucas DO Status: REG CLI Exam# [id number] Ordering Dr: Nancy Lucas DO MAMMOGRAPHY - [...] Amarjit Patel MD at 9:46 EDT Tel [phone], Service support [phone], CC: Nancy Lucas DO Business Development Executive: Signed Family History Unknown Family Member Name [...] smoker Vital Signs Date Test Result Details 08-Nog-044072:43 Comments: Pulse recheck 113-in pain Temperature 98.9 [...] kg/m2 Body Surface Area Calculated 2.07 m2 40-Etj-177896:04 Temperature 98.8 f Comments: Method: Temporal Pulse [...] 2.05 m2 Results Date Description Value Details 85-Xak-539122:20 Culture, Nose Comments: [facility] [address] [place], [address] CUN See Note (Normal) Comments: Gram StainGram [...] <=0.5 S(NF) indicates non- formulary drug at [facility]. Approval by Infectious Disease Specialist required before non- formulary drugs may be ordered and/or dispensed. * CLSI guidelines does not recommend testing of cephalosporins. This inte rpretation is deduced from Beta-lactam/penicillin results. :30 BRICE CULTURE-OTHER (87449) Comments: PATIENT NOT FASTINGPERFORMED BY: JENNIFER [facility] [address] [place] [id number] Information: THROAT SRC:TH Result 1 RRF (Normal) Comments: Routine respiratory nicole Upper Respiratory Culture Final report (Normal) :01 CBC W/Diff, Automated Comments: [facility] [address] [place], [address] Absolute Lymph 2.10 {X10_3/ul} (Normal) Range: 0.83-4.51 [...] 4.2-5.4 WBC 7.2 K/mm3 (Normal) Range: 4.4-11.0 39-Tqj-578444:01 Comprehensive Metabolic Profil Comments: [facility] [address] [place], [address] GAP 10 (Normal) Range: 5-15 CO2 23.0 [...] 7-18 GLU 74 mg/dL (Normal) Range: 70-110 93-Zaj-732770:07 D-Dimer Quantitative (DVT/PE) Comments: Order Date: 02/14/16Order Info: [id number] - D-DIMEROrder Date: 02/14/16Order Info: [id number] - [facility]- [facility] [address] [place], [place], [address] D-DIMER QUANT 0.65 {FEU/ug/m} (Abnormal) Range: 0.27-0.49 Comments: D-Dimer ELEVATED (>0.49): Additional studies and clinicalassessments are indicated to conclude diagnosis of:Deep Vein Thrombosis (DVT) or Pulmonary Embolism (PE)CRITICAL VALUE REPEATED AND VERIFIED. [facility] TO [facility] YMHEAPWG29/13/16 1404 Nia Inga.RESULTS READ BACK BY SAME . 69-Tol-687015:28 CBC (AUTO) (93584) Comments: PATIENT NOT FASTINGPERFORMED BY: [facility] [address]ul[address] [facility] [id number] Platelets 384 {x10E3/uL} (Abnormal) Range: 150-379 RDW 15.6 % (Abnormal) Range: 12.3-15.4 MCHC 31.8 g/dL (Normal) Range: 31.5-35.7 MCH 28.0 pg (Normal) Range: 26.6-33.0 MCV 88 fL (Normal) Range: 79-97 Hematocrit 34.9 % (Normal) Range: 34.0-46.6 Hemoglobin 11.1 g/dL (Normal) Range: 11.1-15.9 RBC 3.96 {x10E6/uL} (Normal) Range: 3.77-5.28 WBC 9.0 {x10E3/uL} (Normal) Range: 3.4-10.8 :43 CBC W/Diff, Automated Comments: [facility] [address] [place], [place], [address] Absolute Lymph 2.38 {X10_3/ul} (Normal) Range: 0.83-4.51 [...] 4.2-5.4 WBC 11.6 K/mm3 (Abnormal) Range: 4.4-11.0 74-Lfk-47308:43 Comprehensive Metabolic Profil Comments: [facility] [address] [place], [place], [address] GAP 10 (Normal) Range: 5-15 CO2 24.0 [...] 7-18 GLU 80 mg/dL (Normal) Range: 70-110 65-Hkj-85577:43 Lipid Profile Comments: [facility] [address] [place], [address] VLDL 26 mg/dL (Normal) Range: 5-40 [...] 200-240 mg/dL Borderline >240 mg/dL High Risk 3-Mjd-304401:00 Miscellaneous Lab Procedure Comments: Comments: VECTRA SENT OUT SST REFTest(s) Ordered: VECTRATest performed at:[facility] [address] [place] [address] [facility] (Normal) Comments: Sent directly to testing facility per ordering physician.10/14/14 1524 LWOODS 7-Bvy-804321:2 C-Reactive 6.6 mg/L (Abnormal) Comments: PATIENT NOT FASTINGPERFORMED BY: ShogetherPres[facility] Medical CenterAdowwy6290 [facility] [id number] 8 Protein, Quant Range: 0.0-4.9 :28 CBC With Differential/Platelet Comments: PATIENT NOT FASTINGPERFORMED BY: No.1 [facility]6370 [facility] [id number] Information: [id number], [id number] Immature Grans (Abs) 0.0 {x10E3/uL} (Normal) Range: [...] 3.77-5.28 WBC 7.3 {x10E3/uL} (Normal) Range: 3.4-10.8 4-Gzx-786217:28 Comp. Metabolic Panel (14) Comments: PATIENT NOT FASTINGPERFORMED BY: LabCoThe [facility] Hospital [facility] Tinton FallsHzaqzh8890 [facility] [id number] ALT (SGPT) 19 [iU]/L (Normal) Range: 0-32 [...] mg/dL (Normal) Comments: PATIENT NOT FASTINGPERFORMED BY: No.1 [facility]ellerBothwell [facility] Health CenterXggraa[address] [facility] Centerin [place] [id number] :28 Range: 1.6-2.6 Sedimentation 7 mm/h (Normal) Comments: PATIENT NOT FASTINGPERFORMED BY: No.1 [facility] [facility] [place] [id number] :28 Rate-Westergren Range: 0-32 TSH 1.480 {uIU/mL} Comments: PATIENT NOT FASTINGPERFORMED BY: No.1 TravellerAmanda V[place] [address]res RoadDublin [place] [id number] :28 (Normal) Range: 0.450-4.500 Vitamin B12 505 pg/mL (Normal) Comments: PATIENT NOT FASTINGPERFORMED BY: No.1 [facility]Be[facility] Hospital6370 [address] RoadDublin [place] [id number] :28 Range: 211-946 Vitamin D, 25-Hydroxy 26.7 ng/mL Comments: PATIENT NOT FASTINGPERFORMED BY: No.1 [facility] Hospital6370 [facility] [id number] :28 (Abnormal) Range: 30.0-100.0 Comments: Vitamin D deficiency has been defined by the [place] ofMedicine and an Endocrine Society practice guideline as alevel of serum 25-OH vitamin D less than 20 ng/mL (1,2).The Endocrine Society went on to further define vitamin Dinsufficiency as a level between 21 and 29 ng/mL (2).1. IOM ([place] of Medicine). 2010. Dietary reference intakes for calcium and D. [place]: The National Academies Press.2. Haylee MF, Heriberto KIMBALL, Kermit ERWIN, et al. Evaluation, treatment, and prevention of vitamin D deficiency: an Endocrine Society clinical practice guideline. JCEM. 2010; 96(7):1911-30. :08 HgA1C , Office (34219) HgA1C , Office 5.4 % (Normal) Range: 4.6 - 7.1 :08 Blood Glucose , Office (35988) Blood Glucose , Office 87 (Normal) 30-Ohj-892550:47 CBC W/Diff, Automated Comments: Test performed at:[facility] [address]vuuqeyene[address] [place], [place] [address] Absolute Lymph 1.92 {X10_3/ul} (Normal) Range: 0.83-4.51 [...] 4.2-5.4 WBC 7.7 K/mm3 (Normal) Range: 4.4-11.0 51-Mrg-615898:47 Comprehensive Metabolic Profil Comments: Test performed at:[facility] [address] [place] [address] GAP 5 (Normal) Range: 5-15 CO2 26.0 [...] directly to testing facility per ordering physician.01/18/14 1102 CHAYOUNG Plan of Care Name Dates Details Instructions Decreased range of motion of left lower [...] reflux Planned Observations Rapid Strep Test, Office (49194)Indication: Sore throat On: 89-Egy-242920:08 Request Rapid Flu (29377 x 2)Indication: Flu-like symptoms On: 77-Xhx-978792:08 Request D-Dimer (99006)Indication: Shortness of breath at rest On: 70-Xjc-266363:38 Request Rapid Flu (26398 x 2)Indication: Vomiting and diarrhea On: 0-Fmd-782794:04 Request VITAMIN B-12 (CYANOCOBALAMIN) (57978)Indication: Electrical shock sensation On: :14 Request SED RATE ERYTHROCYTE (50812)Indication: Electrical shock sensation On: :14 Request C-REACTIVE PROTEIN (53507)Indication: Electrical shock sensation On: 9-Kgl-428649:14 Request MAGNESIUM (27618)Indication: Electrical shock sensation On: 7-Akw-163345:14 Request CALCIFIDIOL (14293) VIT D 25Indication: Electrical shock sensation On: :13 Request TSH (11323)Indication: Electrical shock sensation On: :13 Request CBC W/AUTO DIFF WBC (50395)Indication: Electrical shock sensation On: :13 Request METABOLIC PANEL, COMPREHENSIVE (90711)Indication: Electrical shock sensation On: :13 Request HgA1C , Office (77324)Indication: FAMILY HISTORY OF DIABETES MELLITUS On: 26-Vwa-524491:33 Request Planned Procedures PHYSICAL THERAPY (82614)By: On: 15-Feb-2018 Intent Jenelle London Toradol Injection, 30 mg On: 15-Feb-2018 Intent (J1885)By: Jenelle London Radiology - Hip - LeftBy: Surya On: 15-Feb-2018 Lan Almanzar Comments: Call with wet read Radiology - Lumbar SpineBy: On: 15-Feb-2018 Intent Jenelle London Comments: Call with wet read Toradol Injection, 30 mg On: 15-Feb-2018 Intent (J1885)By: Jenelle London Comments: 80-334-dk8/924447zf/1MLMEGAN, MANAGER GALLERY Flu Vaccine (Quadrivalent) 96705Xq: On: 15-Feb-2018 Intent Jenelle London Comments: Lot #[id number]-7/30/2019Site-L dltd, IMDose prefilled syringegiven by:Benitez Allan LPNVIS reviewed and ABN signed Aerosol Treatment (76724)By: On: 11-Aug-2017 Intent Jenelle London Comments: Exp wheeze in both lungs after aerosol treatment. Solu -Medrol Injection, 125 mg On: 11-Aug-2017 Intent (J2930)By: Jenelle London Comments: solumedrol 125mg injection lot:[id number]:01/2020R GM pt tolerated well MSMITH,MANAGER GALLERY CHEST XRAY, PA & LATERAL (16370)By: On: 10-Aug-2017 Intent Jenelle London Aerosol Treatment (92313)By: On: 10-Aug-2017 Intent Jenelle London Comments: Exp wheeze heard throughout bilateral lungs after aerosol treatment. Solu -Medrol Injection, 125 mg On: 10-Aug-2017 Intent (J2930)By: Jenelle London Comments: solumedrol 125mg injection lot:[id number]:01/2020L GM pt tolerated well MSMITH,MANAGER GALLERY Solu -Medrol Injection, 125 mg On: 05-Aug-2017 Intent (J2930)By: Suzy Hamlin CNP Comments: lot [id number] 09/2019left jlAY018xkcm, MANAGER GALLERY Aerosol Treatment (99630)By: Yakelin On: 05-Aug-2017 Intent Suzy MCDONALD ELECTROCARDIOGRAM, COMPLETE (ECG) On: 05-Aug-2017 Intent (12476)By: Suzy Hamlin CNP CT - Chest with PE ProtocolBy: On: 14-Feb-2016 Intent Nancy Lucas DO, DO, Kathleen EKG (13454)By: Nancy Lucas DO On: 14-Feb-2016 Intent Nancy Lucas DO Aerosol Treatment (78118)By: Lance On: 14-Feb-2016 Nancy Montenegro DO, DO, Kathleen Comments: more a/e Spirometry (01865)By: Lance CAMARA, On: 14-Feb-2016 Intent Nancy Shields DO Comments: some restriction Radiology - Lumbar SpineBy: Lance On: 02-Nov-2015 Nancy Montenegro DO, DO, Kathleen Comments: 2-3 views X-RAY OF LUMBAR SPINE, AP VIEW On: 02-Nov-2015 Intent (59493)By: Nancy Lucas DO, DO, Kathleen Phenergan Injection, up to 50 mg On: 05-Jun-2015 Intent (J2550)By: Suzy Hamlin CNP IV Needle placement (53422)By: On: 05-Jun-2015 Intent Suzy Hamlin CNP INFUSION, NORMAL SALINE SOLUTION , On: 05-Jun-2015 Intent 1000 CC (Special Coverage Instructions Apply. See MCM: 2049) (J7030)By: Suzy Hamlin CNP MRI - BrainBy: Nancy Lucas DO On: 02-Oct-2014 Intent Nancy Lucas DO Solu -Medrol Injection, 125 mg On: 03-Feb-2014 Intent (J2930)By: Suzy Hamlin CNP Aerosol Treatment (13457)By: Yakelin On: 03-Feb-2014 Intent Suzy MCDONALD Radiology - Chest- PA and LatBy: On: 23-Jan-2014 Intent Micki Garcia DO Comments: stat call results Aerosol Treatment (07217)By: Fast On: 23-Jan-2014 Micki Montenegro DO MAMMOGRAM, SCREENING, BOTH BREAST On: 12-Jan-2014 Intent (47077)By: Nancy Lucas DO, DO, Kathleen Planned Medications INFUSION, NORMAL SALINE SOLUTION , 1000 CC Ordered: 05-Jun-2015 Pending Suzy Hamlin CNP E INJECTION, KETOROLAC TROMETHAMINE, PER 15 MG Ordered: 15-Feb-2018 Pending Jenelle London INJECTION, KETOROLAC TROMETHAMINE, PER 15 MG Ordered: 15-Feb-2018 Pending Jenelle London INJECTION, METHYLPREDNISOLONE SODIUM SUCCINATE, UP TO 125 MG Ordered: 03-Feb-2014 Pending Yakelin MCDONALD, Jazmyn INJECTION, METHYLPREDNISOLONE SODIUM SUCCINATE, UP TO 125 MG Ordered: 05-Aug-2017 Pending Yakelin MCDONALD, Jazmyn INJECTION, METHYLPREDNISOLONE SODIUM SUCCINATE, UP TO 125 MG Ordered: 10-Aug-2017 Pending Jenelle London INJECTION, METHYLPREDNISOLONE SODIUM SUCCINATE, UP TO 125 MG Ordered: 11-Aug-2017 Pending Jenelle London Phenergan 50 MG/ML Injection Solution Ordered: 05-Jun-2015 Pending Yakelin MCDONALD, Jazmyn Instructions Name Dates Details BMI 40.0-44.9, adult [...] lipoid disorders) : DISCONTINUED - LIPID PANEL (27750) Indication: SCREENING FOR HYPERLIPIDEMIA (Renamed from Encounter [...] : Patient Instructions Indication: Acid reflux Encounters Annotation/Addendum On: 16-Feb-2018 16:34 Encounter Diagnosis: Unspecified [...] for Cough: was given IV fluid in [place] [facility] on July 31Cough in chest on [...]
--- OUTSIDE RECORDS SUMMARY | 2018-07-26 07:59 | XMS RPT_ITS | Continuity of Care Document ---
:1975 Author Organization [facility] Address [address] [facility] [address] [place] [address] Phone Care Team Providers Name Role Phone Nancy Lucas DO Unavailable Physical Therapy, [facility] Unavailable Matthew Becker MD Unavailable Rony Lucas Unavailable Cruz Kumari Unavailable Unavailable Sailaja Allan LPN Unavailable Unavailable Nona Stock LPN Unavailable Unavailable Jenelle London Unavailable Susan Acevedo Unavailable Unavailable Unavailable Unavailable [...] thru Status: Active Unspecified Diagnosis Status: Active Vaginal [...] DO, DO, Kathleen Start : 06-Apr-2017 Active Methotrexate Sodium 2.5 MG Oral Tablet 6 [...] Comments: 06/2017 dr felix Date Value Details 10-Aug-2017 Chest PA and Lateral Result: Comments: See Note; NOTES: [facility] Imaging Services [address] [place] [address] Chest PA and Lateral MR#: [id number] Acct: [id number] Name: MANDA JEFFERS Rep #: [id number] : 1975 F 42 From: Rivera Young MD PCP: Nancy Lucas DO Status: REG CLI Study: Chest PA and Lateral Date of Exam: 08/10/17 Exam# [id number] Ordering Dr: Jenelle London SOUND EDITOR-C STUDY: X-R AY CHEST REASON FOR EXAM: [...] , CC: NOLA London; Nancy Lucas DO Work Station Support Specialist: Signed 14-Feb-2016 CTA Chest W/WO Contrast Result: Comments: See Note; NOTES: [facility] Imaging Services [address] [place] [address] Verdana 4d CTA Chest W/WO Contrast MR#: [id number] Acct: [id number] Name: MANDA JEFFERS Rep #: [id number] : 1975 F 40 From: Chele Kulkarni DO PCP: Nancy Lucas DO Status: REG CLI Study: CTA Chest W/WO Contrast Date of Exam: 02/14/16 Exam# [id number] Ordering Dr: Nancy Lucas DO STUDY: CTA [...] Chele Kulkarni DO at 13:32 EDT Tel [phone], Service support [phone], CC: Nancy Lucas DO Work Station Support Specialist: Signed 02-Nov-2015 Lumbar Spine 2 or 3 Views Result: Comments: See Note; NOTES: [facility] Imaging Services [address] [place] [address] Verda 4d Lumbar Spine 2 or 3 Views MR#: [id number] Acct: [id number] Name: MANDA BERNAL Rep #: [id number] : 1975 F 40 From: Lubna Husain MD PCP: Nancy Lucas DO Status: REG CLI Study: Lumbar Spine 2 or 3 Views Date of Exam: 11/02/15 Exam# [id number] Ordering Dr: Nancy Lucas DO STUDY: X-RAY [...] at 16:25 EDT Tel , Service support [phone], RAD/Lumba r Spine 2 or 3 Views IMPRESSION: Degenerative change in the lumbar spine. No evidence of an acute fracture. Electronically Signed: Lubna Husain MD at 16:25 EDT Tel , Serv ice support [phone], CC: Nancy Lucas DO Work Station Support Specialist: Signed 10-Oct-2014 Knee 4 or More Views Result: Comments: See Note; NOTES: [facility] Imaging Services [address] [place] [address] Radiology Report MR#: [id number] Acct: [id number] Name: MANDA JEFFERS Rep #: [id number] : 1975 F 39 From: Amarjit Patel MD PCP: Nancy Lucas DO Status: REG CLI Study: Knee 4 or More Views Date of Exam: 10/10/14 Exam# [id number] Ordering Dr: Georgette Kerr MD STUDY: X-RAY [...] Amarjit Patel MD at 16:09 EDT Tel [phone], Service support [phone], RAD/Knee 4 or More Views IMPRESSION: Degenerative arthrosis. El ectronically Signed: Amarjit Patel MD at 16:09 EDT Tel [phone], Service support [phone], CC: Nancy Lucas DO; Georgette Kerr MD Work Station Support Specialist: Signed 10-Oct-2014 Knee 4 or More Views Result: Comments: See Note; NOTES: [facility] Imaging Services [address] [place] [address] Radiology Report MR#: [id number] Acct: [id number] Name: MANDA JEFFERS Rep #: [id number] : 1975 F 39 From: Amarjit Patel MD PCP: Nancy Lucas DO Status: REG CLI Study: Knee 4 or More Views Date of Exam: 10/10/14 Exam# [id number] Ordering Dr: Georgette Kerr MD STUDY: X-RAY [...] Amarjit Patel MD at 16:09 EDT Tel [phone], Service support [phone], RAD/Knee 4 or More Views IMPRESSION: Normal x-ray examination of the knee. Electr onically Signed: Amarjit Patel MD at 16:09 EDT Tel [phone], Service support [phone], CC: Nancy Lucas DO; Georgette Kerr MD Work Station Support Specialist: Signed 09-Oct-2014 Brain W/WO Contrast Result: Comments: See Note; NOTES: [facility] Imaging Services [address] [place] [address] MRI Report MR#: [id number] Acct: [id number] Name: MANDA JEFFERS Rep #: [id number] : 1975 F 39 From: Kel Vasquez DO PCP: Nancy Lucas DO Status: REG CLI Study: Brain W/WO Contrast Date of Exam: 10/09/14 Exam# [id number] Ordering Dr: Nancy Lucas DO STUDY : [...] at 11:41 EDT Tel , Service support [phone], CC: Nancy Lucas DO Work Station Support Specialist: Signed 08-Jun-2014 Spine Cervical (Routine) Result: Comments: See Note; NOTES: [facility] Imaging Services [address] [place] [address] MRI Report MR#: [id number] Acct: [id number] Name: MANDA JEFFERS Rep #: [id number] D OB: 1975 F 38 From: Vladimir Llamas MD PCP: Nancy Lucas DO Status: REG CLI Study: Spine Cervical (Routine) Date of Exam: 06/08/14 Exam# [id number] Ordering Dr: Henrique Cadena MD STUDY: MR [...] FACR at 20:18 EST , Service support [phone], CC: Henrique Cadena MD; Nancy Lucas DO Work Station Support Specialist: Signed 29-May-2014 Cerv Spine 2 or 3 Views Result: Comments: See Note; NOTES: [facility] Imaging Services [address] [place] [address] Radiology Report MR#: [id number] Acct: [id number] Name: MANDA JEFFERS Rep #: [id number] : 1975 F 38 From: Kaycee Suero MD PCP: Nancy Lucas DO Status: REG CLI Study: Cerv Spine 2 or 3 Views Date of Exam: 05/29/14 Exam# [id number] Ordering Dr: Henrique Cadena MD STUDY: X-RAY [...] at 22:44 EST Tel , Service support [phone], CC: Henrique Cadena MD; Nancy Lucas DO Work Station Support Specialist: Signed 23-Jan-2014 Chest PA and Lateral Result: Comments: See Note; NOTES: [facility] Imaging Services [address] [place] [address] Radiology Report MR#: [id number] Acct: [id number] Name: MANDA JEFFERS Rep #: [id number] : 1975 F 38 From: Amarjit Patel MD PCP: Nancy Lucas DO Status: REG CLI Study: Chest PA and Lateral Date of Exam: 01/23/14 Exam# [id number] Ordering Dr: Micki Garcia DO STUDY : [...] Coronel i, MD at 14:51 EDT Tel [phone], Service support [phone], CC: Micki Garcia DO; Nancy Lucas DO Work Station Support Specialist: Signed 12-Jan-2014 Bilat Scrn Digital & CAD Result: Comments: See Note; NOTES: [facility] Imaging Services [address] [place], [place] [address] Breast Imaging Report MR#: [id number] Acct: [id number] Name: MANDA JEFFERS Rep #: [id number] : 1975 F 38 From: Amarjit Patel MD PCP: Nancy Lucas DO Status: REG CLI Exam# [id number] Ordering Dr: Nancy Lucas DO MAMMOGRAPHY - [...] Amarjit Patel MD at 9:46 EDT Tel [phone], Service support [phone], CC: Nancy Lucas DO Work Station Support Specialist: Signed Family History Unknown Family Member Name [...] smoker Vital Signs Date Test Result Details 75-Nsr-677036:43 Comments: Pulse recheck 113-in pain Temperature 98.9 [...] 2.05 m2 Results Date Description Value Details 61-Mry-954272:20 Culture, Nose Comments: [facility] [address] [place], [address] CUN See Note (Normal) Comments: Gram StainGram [...] <=0.5 S(NF) indicates non- formulary drug at [facility]. Approval by Infectious Disease Specialist required before non- formulary drugs may be ordered and/or dispensed. * CLSI guidelines does not recommend testing of cephalosporins. This inte rpretation is deduced from Beta-lactam/penicillin results. 90-Mhv-77627:30 BRICE CULTURE-OTHER (01634) Comments: PATIENT NOT FASTINGPERFORMED BY: [facility] Wjtiei2753 [facility] [id number] Information: THROAT SRC:TH Result 1 RRF (Normal) Comments: Routine respiratory nicole Upper Respiratory Culture Final report (Normal) 54-Eyn-569222:01 CBC W/Diff, Automated Comments: [facility] [address] [place], [address] Absolute Lymph 2.10 {X10_3/ul} (Normal) Range: 0.83-4.51 [...] 4.2-5.4 WBC 7.2 K/mm3 (Normal) Range: 4.4-11.0 52-Dza-373313:01 Comprehensive Metabolic Profil Comments: [facility] [address] [place], [place], [id number] GAP 10 (Normal) Range: 5-15 CO2 23.0 [...] 7-18 GLU 74 mg/dL (Normal) Range: 70-110 33-Gyv-265717:07 D-Dimer Quantitative (DVT/PE) Comments: Order Date: 02/14/16Order Info: [id number] - D-DIMEROrder Date: 02/14/16Order Info: [id number] - [facility] [address] [place], [address] D-DIMER QUANT 0.65 {FEU/ug/m} (Abnormal) Range: 0.27-0.49 Comments: D-Dimer ELEVATED (>0.49): Additional studies and clinicalassessments are indicated to conclude diagnosis of:Deep Vein Thrombosis (DVT) or Pulmonary Embolism (PE)CRITICAL VALUE REPEATED AND VERIFIED. CALLED TO [facility] INTERNAL HIYBUJQZ87/13/16 1404 Nia Xiong.RESULTS READ BACK BY SAME . 53-Yqq-742547:28 CBC (AUTO) (38284) Comments: PATIENT NOT FASTINGPERFORMED BY: [facility] Uczywt9582 [facility] [id number] Platelets 384 {x10E3/uL} (Abnormal) Range: 150-379 RDW 15.6 % (Abnormal) Range: 12.3-15.4 MCHC 31.8 g/dL (Normal) Range: 31.5-35.7 MCH 28.0 pg (Normal) Range: 26.6-33.0 MCV 88 fL (Normal) Range: 79-97 Hematocrit 34.9 % (Normal) Range: 34.0-46.6 Hemoglobin 11.1 g/dL (Normal) Range: 11.1-15.9 RBC 3.96 {x10E6/uL} (Normal) Range: 3.77-5.28 WBC 9.0 {x10E3/uL} (Normal) Range: 3.4-10.8 87-Zkv-29337:43 CBC W/Diff, Automated Comments: [facility] [address] [place], [address] Absolute Lymph 2.38 {X10_3/ul} (Normal) [...] 4.2-5.4 WBC 11.6 K/mm3 (Abnormal) Range: 4.4-11.0 48-Fxt-59594:43 Comprehensive Metabolic Profil Comments: [facility] [address] [place], [place], [address] GAP 10 (Normal) Range: 5-15 CO2 24.0 [...] 7-18 GLU 80 mg/dL (Normal) Range: 70-110 :43 Lipid Profile Comments: [facility] [address] [place] [address], [address] VLDL 26 mg/dL (Normal) Range: 5-40 [...] 200-240 mg/dL Borderline >240 mg/dL High Risk 1-Asp-552866:00 Miscellaneous Lab Procedure Comments: Comments: VECTRA SENT OUT SST REFTest(s) Ordered: VECTRATest performed at:[facility] [address] [place] [id number] [facility] LAB TEST (Normal) Comments: Sent directly to testing facility per ordering physician.10/14/14 1524 LWOODS 8-Hcm-945341:2 C-Reactive 6.6 mg/L (Abnormal) Comments: PATIENT NOT FASTINGPERFORMED BY: [facility] HospitalNldiyg6422 [facility] [id number] Protein, Quant Range: 0.0-4.9 3-Tve-376326:28 CBC With Differential/Platelet Comments: PATIENT NOT FASTINGPERFORMED BY: [facility]6370 [facility] [id number] Information: I43065, 725204 Immature Grans (Abs) 0.0 {x10E3/uL} (Normal) Range: [...] 3.77-5.28 WBC 7.3 {x10E3/uL} (Normal) Range: 3.4-10.8 1-Hxp-062464:28 Comp. Metabolic Panel (14) Comments: PATIENT NOT FASTINGPERFORMED BY: [facility]6370 [facility] [id number] ALT (SGPT) 19 [iU]/L (Normal) Range: 0-32 [...] mg/dL (Normal) Comments: PATIENT NOT FASTINGPERFORMED BY: [employer] [facility]ORE [facility] [id number] :28 Range: 1.6-2.6 Sedimentation 7 mm/h (Normal) Comments: PATIENT NOT FASTINGPERFORMED BY: [facility] TechnologiesMountainside HospitalDbbzav2685 [facility] [id number] :28 Rate-Westergren Range: 0-32 TSH 1.480 {uIU/mL} Comments: PATIENT NOT FASTINGPERFORMED BY: [facility] TechnologiesMountainside HospitalBvsoyn0835 [facility] [id number] :28 (Normal) Range: 0.450-4.500 Vitamin B12 505 pg/mL (Normal) Comments: PATIENT NOT FASTINGPERFORMED BY: [employer] Lqogmm7954 [facility] [id number] :28 Range: 211-946 Vitamin D, 25-Hydroxy 26.7 ng/mL Comments: PATIENT NOT FASTINGPERFORMED BY: [facility] Ywtfch7125 [facility] [id number] :28 (Abnormal) Range: 30.0-100.0 Comments: Vitamin D deficiency has been defined by the [place] of[facility] Centercine and an Endocrine Society practice guideline as alevel of serum 25-OH vitamin D less than 20 ng/mL (1,2).The Endocrine Society went on to further define vitamin Dinsufficiency as a level between 21 and 29 ng/mL (2).1. IOM ([place] of Medicine). 2010. Dietary reference intakes for calcium and D. [place]: The National AcademRosalind Press.2. Haylee MF, Heriberto KIMBALL, Kermit ERWIN, et al. Evaluation, treatment, and prevention of vitamin D deficiency: an Endocrine Society clinical practice guideline. JCEM. 2010; 96(7):1911-30. :08 HgA1C , Office (41178) HgA1C , Office 5.4 % (Normal) Range: 4.6 - 7.1 :08 Blood Glucose , Office (04235) Blood Glucose , Office 87 (Normal) :47 CBC W/Diff, Automated Comments: Test performed at:[facility] [address] [place], [place] [address] Absolute Lymph 1.92 {X10_3/ul} (Normal) Range: 0.83-4.51 [...] 4.2-5.4 WBC 7.7 K/mm3 (Normal) Range: 4.4-11.0 39-Fbu-811678:47 Comprehensive Metabolic Profil Comments: Test performed at:[facility] [address] [place] [address] GAP 5 (Normal) Range: 5-15 CO2 26.0 [...] 7-18 GLU 77 mg/dL (Normal) Range: 70-110 :11 MISC (Normal) Comments: Comments: VECTRATest(s) Ordered: VECTRA Comments: Sent directly to testing facility per ordering physician.01/18/14 1108 [facility] Plan of Care Name Dates Details Instructions [...] reflux Planned Observations Rapid Strep Test, Office (82121)Indication: Sore throat On: 74-Ces-607059:08 Request Rapid Flu (56724 x 2)Indication: Flu-like symptoms On: 91-Lqv-105255:08 Request D-Dimer (63194)Indication: Shortness of breath at rest On: 26-Vzc-622962:38 Request Rapid Flu (84658 x 2)Indication: Vomiting and diarrhea On: 3-Npo-421141:04 Request VITAMIN B-12 (CYANOCOBALAMIN) (69347)Indication: Electrical shock sensation On: 9-Vix-124399:14 Request SED RATE ERYTHROCYTE (00862)Indication: Electrical shock sensation On: 0-Cqh-536693:14 Request C-REACTIVE PROTEIN (47895)Indication: Electrical shock sensation On: 1-Qhp-010614:14 Request MAGNESIUM (05798)Indication: Electrical shock sensation On: :14 Request CALCIFIDIOL (44074) VIT D 25Indication: Electrical shock sensation On: :13 Request TSH (03199)Indication: Electrical shock sensation On: :13 Request CBC W/AUTO DIFF WBC (08564)Indication: Electrical shock sensation On: :13 Request METABOLIC PANEL, COMPREHENSIVE (21160)Indication: Electrical shock sensation On: :13 Request HgA1C , Office (25218)Indication: FAMILY HISTORY OF DIABETES MELLITUS On: 79-Enj-256407:33 Request Planned Procedures PHYSICAL THERAPY (77562)By: On: 15-Feb-2018 Intent Jenelle London Toradol Injection, 30 mg On: 15-Feb-2018 Intent (J1885)By: Jenelle London Radiology - Hip - LeftBy: Surya On: 15-Feb-2018 Lan Almanzar Comments: Call with wet read Radiology - Lumbar SpineBy: On: 15-Feb-2018 Intent Jenelle London Comments: Call with wet read Toradol Injection, 30 mg On: 15-Feb-2018 Intent (J1885)By: Jenelle London Comments: 80-334-dk8/988173au/1MLMEGAN, INTERIOR DESIGN PROFESSIONAL Flu Vaccine (Quadrivalent) 51809Ul: On: 15-Feb-2018 Intent Jenelle London Comments: Lot #[id number]/30/2019Site-L dltd, IMDose prefilled syringegiven by:BENITA Gabriel reviewed and ABN signed Aerosol Treatment (22076)By: On: 11-Aug-2017 Intent Jenelle London Comments: Exp wheeze in both lungs after aerosol treatment. Solu -Medrol Injection, 125 mg On: 11-Aug-2017 Intent (J2930)By: Jenelle London Comments: solumedrol 125mg injection lot:[id number]:01/2020R GM pt tolerated well KRYSTALITHSOLISN CHEST XRAY, PA & LATERAL (07131)By: On: 10-Aug-2017 Intent Jenelle London Aerosol Treatment (48714)By: On: 10-Aug-2017 Intent Jenelle London Comments: Exp wheeze heard throughout bilateral lungs after aerosol treatment. Solu -Medrol Injection, 125 mg On: 10-Aug-2017 Intent (J2930)By: Jenelle London Comments: solumedrol 125mg injection lot:[id number]:01/2020L GM pt tolerated well MSMITH,INTERIOR DESIGN PROFESSIONAL Solu -Medrol Injection, 125 mg On: 05-Aug-2017 Intent (J2930)By: Suzy Hamlin CNP Comments: lot [id number] 09/2019left haVI924ugew, INTERIOR DESIGN PROFESSIONAL Aerosol Treatment (31650)By: Yakelin On: 05-Aug-2017 Intent Suzy MCDONALD ELECTROCARDIOGRAM, COMPLETE (ECG) On: 05-Aug-2017 Intent (08411)By: Suzy Hamlin CNP CT - Chest with PE ProtocolBy: On: 14-Feb-2016 Intent Nancy Lucas DO, DO, Kathleen EKG (81678)By: Nancy Lucas DO On: 14-Feb-2016 Intent Nancy Lucas DO Aerosol Treatment (18006)By: Lance On: 14-Feb-2016 Nancy Montenegro DO, DO, Kathleen Comments: more a/e Spirometry (55638)By: Lance CAMARA, On: 14-Feb-2016 Intent Nancy Shields DO Comments: some restriction Radiology - Lumbar SpineBy: Lance On: 02-Nov-2015 Nancy Montenegro DO, DO, Kathleen Comments: 2-3 views X-RAY OF LUMBAR SPINE, AP VIEW On: 02-Nov-2015 Intent (85009)By: Nancy Lucas DO, DO, Kathleen Phenergan Injection, up to 50 mg On: 05-Jun-2015 Intent (J2550)By: Suzy Hamlin CNP IV Needle placement (42592)By: On: 05-Jun-2015 Intent Suzy Hamlin CNP INFUSION, NORMAL SALINE SOLUTION , On: 05-Jun-2015 Intent 1000 CC (Special Coverage Instructions Apply. See MCM: 2049) (J7030)By: Suzy Hamlin CNP MRI - BrainBy: Nancy Lucas DO On: 02-Oct-2014 Intent Nancy Lucas DO Solu -Medrol Injection, 125 mg On: 03-Feb-2014 Intent (J2930)By: Suzy Hamlin CNP Aerosol Treatment (37503)By: Yakelin On: 03-Feb-2014 Intent Suzy MCDONALD Radiology - Chest- PA and LatBy: On: 23-Jan-2014 Intent Micki Garcia DO Comments: stat call results Aerosol Treatment (16508)By: Fast On: 23-Jan-2014 Intent Micki CAMARA MAMMOGRAM, SCREENING, BOTH BREAST On: 12-Jan-2014 Intent (61825)By: Nancy Lucas DO, DO, Kathleen Planned Medications [...] lipoid disorders) : DISCONTINUED - LIPID PANEL (11461) Indication: SCREENING FOR HYPERLIPIDEMIA (Renamed from Encounter [...] Indication: Acid reflux Encounters Office Visit On: 15-Feb-2018 10:43 Encounter Reason: [...] for Cough: was given IV fluid in [place] [facility] on July 31Cough in chest on [...] occur daily and last for 1 day. End: 05-Jun-2015 15:30 e patient describes this [...]
--- OUTSIDE RECORDS SUMMARY | 2018-07-26 07:59 | XMS RPT_ITS ---
:1975 Author Organization OHIP Care Team Providers Name Role Phone Sarath Becker Attending Unavailable Sarath Becker Referring Unavailable Lance, Nancy Primary Care Unavailable Sarath Becker Attending Unavailable Sarath Becker Referring Unavailable Lance, Nancy Primary Care Unavailable Jenelle London QC LAB TECHNICIAN-C Attending Unavailable Jenelle London QC LAB TECHNICIAN-C Referring Unavailable Lance, Nancy Primary Care Unavailable Sarath Becker Attending Unavailable Lance, Nancy Primary Care Unavailable Sarath Becker Referring Unavailable Jenelle London QC LAB TECHNICIAN-C Attending Unavailable Jenelle London QC LAB TECHNICIAN-C Referring Unavailable Lance, Nancy Primary Care Unavailable Lance, Nancy Attending Unavailable Lance, Nancy Referring Unavailable Lance, Nancy Primary Care Unavailable Lance DO, Nancy Attending Unavailable Lance DO, Nancy Referring Unavailable Lance DO, Nancy Consulting Unavailable Jonolanki, Georgette Admitting Unavailable Georgette Kerr Attending Unavailable Nancy Lucas Primary Care Unavailable Nancy Lucas Primary Care Unavailable Jalen, Robby W Admitting Unavailable Jalen, Robby W Attending Unavailable Cirilo, Georgette Admitting Unavailable Cirilo, Georgette Attending Unavailable Nancy Lucas Primary Care Unavailable PROBLEMS PROBLEMS No Problem Records FoundPROCEDURES PROCEDURES No Procedure Records FoundRESULTS RESULTS SINUS/FACIAL BONE Observed: 05/27/2018 Status: F Source: [place] 2:57 PM [facility] REPOSITORY [facility] Imaging Services [address] [place] [address] Sinus/Facial Bone MR#: [id number] Acct: [id number] Name: MANDA MOODY Rep #: [id number] : 1975 F 42 From: Alex Galo MD PCP: Nancy Lucas DO Status: REG CLI Study: Sinus/Facial Bone Date of Exam: 05/27/18 Exam# [id number] Ordering Dr: Sarath Becker MD STUDY: CT MAXILLOFACIAL SINUSES REASON FOR EXAM: Female, 42 years old. Sinusitis RADIATION DOSAGE (If Supplied By Facility): CTDIvol = ( 33.45 ) mGy, DLP = ( 804.77 ) mGycm TECHNIQUE: The patient was scanned in a multi detector CT scanner. High resolution axial imaging was performed without the administration of intravenous contrast material. Sagittal and coronal images were reconstructed. Individualized dose optimization techniques were used for this CT. COMPARISON: None. FINDINGS: : NASAL SEPTUM: Slightly bowed to the left with a spur pointing leftward CRIBRIFORM PLATE AND JENNIFER KATHY: The fovea ethmoidalis, lateral lamella and lamina cribrosa are normal. The anterior ethmoidal notch is normal with no supraorbital pneumatization. The olfactory fossa is symmetric with a Keros type II. No skull base dehiscence LAMINA PAPYRACEA: No remote orbital fracture and no orbital prolapse into the ethmoidal sinus . BONY CAMEJO: No dehiscence, demineralization or thickness TURBINATES: Normal thickness and no paradoxical orientation. No brenda bullosa . No turbinectomy OSTIOMEATAL UNITS: Patent with no ethmoidectomy, maxillary antrostomy, uncinectomy or turbinoplasty SPHENOETHMOIDAL RECESS: Patent FRONTAL SINUSES: Well developed and pneumatized with no abnormal soft tissue attenuations in them ETHMOID AIR CELLS: Aggar Nasi air cells are noted. No [place] air cells. Both the anterior and posterior ethmoidal air cells are clear of abnormal soft tissue attenuations MAXILLARY SINUSES: Normal with no arrested pneumatization or hyperpneumatization and no abnormal soft tissue attenuations SPHENOID SINUSES: Normal with conchal, presellar or sellar type pneumatization. No dehiscence into carotid canal and no optic nerve dehiscence within the sphenoid sinus. No [place] air cells ORBITS: Negative SKULL BASE/CRANIOVERTEBRAL JUNCTION/UPPER CERVICAL SPINE.: Normal IMPRESSION: Negative examination with no maxillo-infundibular, nasofrontal, ostiomeatal unit or sphenoethmoidal pattern of obstructive disease. There is also no evidence of sinonasal polyposis. A spur pointing leftward from the septum. . Electronically Signed: Alex Galo MD at 4:42 EST Tel , Service support , CT/Sinus/Facial Bone CC: Matthew Becker MD; Nancy Lucas DO Induction Brazer: Signed Observed: 05/21/2018 Status: F Source: [place] CULTURE, NOSE 11:30 AM [facility] REPOSITORY Gram Stain Gram Stain No White Blood Cells No organisms seen Nasoph. Cult No Haemophilus, Streptococcus pneumoniae, beta-hemolytic Streptococcus or Staphylococcus aureus isolated. Performed By: #### M100.0900 #### [facility] [place], [address] CBC W/ AUTO DIFF Collected: 04/15/2018 Status: F Source: [facility] 5:23 PM [facility] REPOSITORY TYPE CODE TESTS RESULT OUT OF RANGE REFERENCE UNITS LAB 01186161(L 3.6-11.0 E3/mcL OINC) Normal WBC 8.6 LAB 09926451(L 3.90-5.40 E6/mcL OINC) Normal RBC 4.68 LAB 60472027(L 12.0-16.0 G/DL OINC) Low Hgb 11.9 LAB 11455258(L 36.0-48.0 % OINC) Normal Hct 37.7 LAB 45220553(L 11.5-14.5 % OINC) High RDW 19.0 LAB 77088889(L 27.0-31.0 pg OINC) Low MCH 25.5 LAB 21984408(L 33.0-37.0 G/DL OINC) Low MCHC 31.7 LAB 78931583(L 78.0-100.0 fL OINC) Normal MCV 80.6 LAB 49814516(L 7.4-11.0 fL OINC) Normal MPV 8.6 LAB 88476997(L 130-400 E3/mcL OINC) Normal Platelet 371 Performed By: #### [id number] #### [facility] [facility] [place] [address] MORPH Collected: 04/15/2018 Status: F Source: [facility] 5:23 [facility] REPOSITORY Order Comment: Order Added by Discern Expert. TYPE CODE TESTS RESULT OUT OF REFERENCE UNITS RANGE LAB 92911977( LOINC) RBC Morph SEE Normal MORPHOLOGY LAB 73269882( LOINC) 1+ Normal Anisocytosis Performed By: #### [id number] #### [facility] [employer] [address] [place] [address] ZZPLT MORPH Collected: 04/15/2018 Status: F Source: [facility] 5:23 [facility] REPOSITORY TYPE CODE TESTS RESULT OUT OF RANGE REFERENCE UNITS LAB 73237268(L OINC) Normal Platelet NORMAL Estimate LAB 45103763(L OINC) Normal Platelet Morph NORMAL Performed By: #### [id number] #### [facility] [employer] [address] [place] [address] AUTO DIFF Collected: 04/15/2018 Status: F Source: [facility] 5:23 [facility] REPOSITORY Order Comment: Order Added by Discern Expert. TYPE CODE TESTS RESULT OUT OF RANGE REFERENCE UNITS LAB 36182423(L 37.0-75.0 % OINC) Normal Neutro Auto 62.0 LAB 94448082(L 20.0-55.0 % OINC) Normal Lymph Auto 26.0 LAB 22617253(L 0.0-10.0 % OINC) Normal Hayes Auto 8.5 LAB 11909284(L 0.0-11.0 % OINC) Normal Eos Auto 2.6 LAB 14518964(L 0.0-2.0 % OINC) Normal Basophil Auto 0.9 LAB 14990775(L 1.4-6.5 E3/mcL OINC) Normal Neutro 5.3 Absolute LAB 23660270(L 1.2-3.4 E3/mcL OINC) Normal Lymph Absolute 2.2 LAB 29715194(L 0.0-0.7 E3/mcL OINC) Normal Hayes Absolute 0.7 LAB 90356697(L 0.0-0.7 E3/mcL OINC) Normal Eos Absolute 0.2 LAB 05367166(L 0.0-0.2 E3/mcL OINC) Normal Basophil 0.1 Absolute Performed By: #### [id number] #### MIN[facility] [employer]ie [address] [place] [address] Collected: 04/15/2018 Status: F Source: [facility] 5:23 PM [facility] REPOSITORY TYPE CODE TESTS RESULT OUT OF RANGE REFERENCE UNITS LAB 30884520(L 70-99 mg/dL OINC) Glucose Normal Lvl 86 LAB 11304585(L 6-23 mg/dL OINC) BUN Normal 10 LAB 3984514(LO 0.5-1.1 mg/dL INC) Normal Creatinine 0.6 LAB 69527187(L 8.6-10.3 mg/dL OINC) Calcium Normal Lvl 9.0 LAB 26460141(L 136-145 mEq/L OINC) Sodium Normal Lvl 139 LAB 72770502(L 3.5-5.3 mEq/L OINC) Low Potassium Lvl 3.4 LAB 57095071(L 98-107 mEq/L OINC) Chloride Normal 106 LAB 35300775(L 21.0-32.0 mEq/L OINC) CO2 Normal 24.0 LAB 23610658(L 33-110 Int._Unit/ OINC) L Alk Phos Normal 89 LAB 22619035(L 0.00-1.20 mg/dL OINC) Bili Normal Total 0.38 LAB 01261837(L 3.4-5.0 gm/dL OINC) Albumin Normal Lvl 4.2 LAB 91259860(L 6.4-8.2 gm/dL OINC) Total Normal Protein 6.8 LAB 81048032(L 7-45 Int._Unit/ OINC) L ALT Normal 19 LAB 47053217(L 9-39 Int._Unit/ OINC) L AST Normal 20 LAB 69685702(L 5.4-30.0 ratio OINC) Normal BUN/Creat Ratio 16.7 LAB 72849409(L 10-20 mEq/L OINC) AGAP Normal 12 LAB 18131477(L 2.0-4.0 G/DL OINC) Globulin Normal 3.0 LAB 90012092(L 1.1-1.9 ratio OINC) A/G Normal Ratio 1.6 Performed By: #### [id number] #### [facility] [employer] [facility] [place] [address] EGFR Collected: 04/15/2018 Status: F Source: [facility] 5:23 PM [facility] REPOSITORY Order Comment: Order added by Discern Expert. TYPE CODE TESTS RESULT OUT OF RANGE REFERENCE UNITS LAB 34808274(LO mL/min/1.73 INC) m2 Normal eGFR >60 LAB 55265606(LO mL/min/1.73 INC) m2 Normal eGFR AA >60 Performed By: #### [id number] #### [facility] [employer] [address] [place] [address] SPINE LUMBAR Observed: 02/25/2018 Status: F Source: [place] (ROUTINE) 5:46 PM [facility] REPOSITORY [facility] Imaging Services [address] [place] [address] Spine Lumbar (Routine) MR#: [id number] Acct: [id number] Name: MANDA MOODY Rep #: [id number] : 1975 F 42 From: Karen Lagos MD PCP: Nancy Lucas DO Status: REG CLI Study: Spine Lumbar (Routine) Date of Exam: 02/25/18 Exam# [id number] Ordering Dr: Nancy Lucas DO ADDENDUM by Karen Lagos MD on 02/26/18 at 1659 ADDENDUM ADDENDUM comparison x-ray 02/15/2018: L3-4 foraminal disc protrusion is not seen on the prior x-ray. Electronically Signed: Karen Lagos MD at 16:59 EDT Tel , Service support , 02/26/18 1659 Date cc: Nancy Lucas DO * Signed ADDENDUM by Karen Lagos MD on 02/26/18 at 1659 MRI/Spine Lumbar (Routine) 02/26/18 1706 Date cc: Nancy Lucas DO * Signed STUDY: MRI LUMBAR [...] conus medullaris that terminates at the L1 level. L1-2: Normal endplates. Normal disc height, hydration and morphology. Normal bilateral facet joints. Normal central canal and bilateral lateral recesses. Normal bilateral intervertebral neural foramina. L2-3: Normal endplates. Normal disc height, hydration and morphology. Normal bilateral facet joints. Normal central canal and bilateral lateral recesses. Normal bilateral intervertebral neural foramina. L3-4: Normal endplates. Normal disc height, hydration and morphology. There is a small left inferior foraminal disc protrusion. No evidence of nerve root displacement. Normal bilateral facet joints. Normal central canal [...] Service support , CC: Nancy Lucas DO Induction Brazer: Signed L/S SPINE MIN 4 Observed: 02/15/2018 Status: F Source: [facility] 11:18 AM [facility] REPOSITORY [facility] Imaging Services [address] [place] [address] L/S Spine Min 4 Views MR#: [id number] Acct: [id number] Name: MANDA MOODY Rep #: [id number] : 1975 F 42 From: Leanna Pérez MD PCP: Nancy Lucas DO Status: REG CLI Study: L/S Spine Min 4 Views Date of Exam: 02/15/18 Exam# [id number] Ordering Dr: Jenelle London QC LAB TECHNICIAN-C STUDY: X-RAY - LUMBAR SPINE REASON FOR EXAM: Female, 42 years old. Lower back pain. TECHNIQUE: 5 view(s) of the lumbar spine were obtained. COMPARISON: November 02, 2015 FINDINGS: Normal lumbar lordosis. There is no substantial scoliosis. There is a normal alignment of the vertebrae. There is multilevel endplate spondylosis of the lumbar vertebrae. Normal disc space heights. There are surgical clips within the right upper quadrant suggestive of a prior cholecystectomy. RAD/L/S Spine Min 4 Views IMPRESSION: Mild degenerative changes. Electronically Signed: Leanna Pérez MD at 20:55 EDT Tel , Service support , CC: NOLA London; Nancy Lucas DO Induction Brazer: Signed HIP, UNI W/ PELVIS Observed: 02/15/2018 Status: F Source: [place] 2-3 VIEWS 11:18 AM [facility] REPOSITORY [facility] Imaging Services [address] [place] [address] HIP, UNI W/ Pelvis 2-3 Views MR#: [id number] Acct: [id number] Name: MANDA MOODY Rep #: [id number] : 1975 F 42 From: Sonu Fuentes DO PCP: Nancy Lucas DO Status: REG CLI Study: HIP, UNI W/ Pelvis 2-3 Views Date of Exam: 02/15/18 Exam# [id number] Ordering Dr: Jenelle London STUDY: X-RAY - PELVIS AND LEFT HIP REASON FOR EXAM: Female, 42 years old. Left hip pain TECHNIQUE: Radiological exam, hip, unilateral, with pelvis when performed; 2 or 3 views. COMPARISON: None. FINDINGS: There is a non-specific bowel gas pattern. Normal visualized soft tissue structures. Normal bilateral iliac wings, sacroiliac joints and visualized sacrum. Normal bilateral superior and inferior pubic rami. Normal pubic symphysis. Normal bilateral ischial tuberosities. Normal visualized femoral head. Normal acetabulum. Normal hip joint. RAD/HIP, UNI W/ Pelvis 2-3 Views IMPRESSION: Normal x-ray examination of the pelvis and hip. Electronically Signed: Sonu Fuentes DO at 11:24 EDT Tel , Service support , CC: NOLA London; Nancy Lucas DO Induction Brazer: Signed CBC W/ AUTO DIFF Collected: 01/13/2018 Status: F Source: [facility] 5:55 [facility] REPOSITORY TYPE CODE TESTS RESULT OUT OF RANGE REFERENCE UNITS LAB 91419618(L 3.6-11.0 E3/mcL OINC) Normal WBC 9.0 LAB 62778831(L 3.90-5.40 E6/mcL OINC) Normal RBC 4.77 LAB 92162206(L 12.0-16.0 G/DL OINC) Low Hgb 11.7 LAB 17635041(L 36.0-48.0 % OINC) Normal Hct 36.7 LAB 08712502(L 11.5-14.5 % OINC) High RDW 20.4 LAB 08910756(L 27.0-31.0 pg OINC) Low MCH 24.6 LAB 62398069(L 33.0-37.0 G/DL OINC) Low MCHC 32.0 LAB 46837965(L 78.0-100.0 fL OINC) Low MCV 76.9 LAB 83489618(L 7.4-11.0 fL OINC) Normal MPV 8.3 LAB 66550938(L 130-400 E3/mcL OINC) Normal Platelet 358 Performed By: #### [id number] #### [facility] [employer] [facility] [place] [address] MORPH Collected: 01/13/2018 Status: F Source: [facility] 5:55 PM [facility] REPOSITORY Order Comment: Order Added by Discern Expert. TYPE CODE TESTS RESULT OUT OF REFERENCE UNITS RANGE LAB 87002319( LOINC) RBC Morph SEE Normal MORPHOLOGY LAB 03991850( LOINC) 2+ Normal Anisocytosis Performed By: #### [id number] #### [facility] [employer] [facility] [place] [address] ZZPLT MORPH Collected: 01/13/2018 Status: F Source: [facility] 5:55 PM [facility] REPOSITORY TYPE CODE TESTS RESULT OUT OF RANGE REFERENCE UNITS LAB 36497268(L OINC) Normal Platelet NORMAL Estimate LAB 21979692(L OINC) Normal Platelet Morph NORMAL Performed By: #### [id number] #### [facility] [employer] [facility] [place] [address] AUTO DIFF Collected: 01/13/2018 Status: F Source: [facility] 5:55 PM [facility] REPOSITORY Order Comment: Order Added by Discern Expert. TYPE CODE TESTS RESULT OUT OF RANGE REFERENCE UNITS LAB 73238968(L 37.0-75.0 % OINC) Normal Neutro Auto 62.6 LAB 49839967(L 20.0-55.0 % OINC) Normal Lymph Auto 25.4 LAB 57824366(L 0.0-10.0 % OINC) Normal Hayes Auto 7.9 LAB 27563184(L 0.0-11.0 % OINC) Normal Eos Auto 3.1 LAB 90776796(L 0.0-2.0 % OINC) Normal Basophil Auto 1.0 LAB 87876283(L 1.4-6.5 E3/mcL OINC) Normal Neutro 5.7 Absolute LAB 36382387(L 1.2-3.4 E3/mcL OINC) Normal Lymph Absolute 2.3 LAB 57816880(L 0.0-0.7 E3/mcL OINC) Normal Hayes Absolute 0.7 LAB 27120273(L 0.0-0.7 E3/mcL OINC) Normal Eos Absolute 0.3 LAB 97369353(L 0.0-0.2 E3/mcL OINC) Normal Basophil 0.1 Absolute Performed By: #### [id number] #### [facility] [employer] [facility] [place] [address] CMP Collected: 01/13/2018 Status: F Source: [facility] 5:55 PM [facility] REPOSITORY TYPE CODE TESTS RESULT OUT OF RANGE REFERENCE UNITS LAB 05030583(L 70-99 mg/dL OINC) Glucose Normal Lvl 89 LAB 02749345(L 7-18 mg/dL OINC) BUN Normal 14 LAB 2902929(LO 0.6-1.3 mg/dL INC) Normal Creatinine 0.6 LAB 52014938(L 8.4-10.2 mg/dL OINC) Calcium Normal Lvl 8.7 LAB 31723714(L 136-145 mEq/L OINC) Sodium Normal Lvl 138 LAB 46178053(L 3.5-5.1 mEq/L OINC) Normal Potassium Lvl 3.8 LAB 17622676(L 98-107 mEq/L OINC) Chloride Normal 105 LAB 61099075(L 24.0-30.0 mEq/L OINC) CO2 Normal 24.4 LAB 68249517(L 42-121 Int._Unit/ OINC) L Alk Phos Normal 89 LAB 44702023(L 0.2-1.0 mg/dL OINC) Bili Normal Total 0.4 LAB 90282315(L 3.2-5.0 G/DL OINC) Albumin Normal Lvl 3.9 LAB 38611071(L 6.4-8.3 G/DL OINC) Total Normal Protein 7.2 LAB 24934000(L 10-40 Int._Unit/ OINC) L ALT Normal 15 LAB 60229470(L 10-42 Int._Unit/ OINC) L AST Normal 21 LAB 59759883(L 5.4-30.0 ratio OINC) Normal BUN/Creat Ratio 23.3 LAB 61739530(L 2.0-4.0 G/DL OINC) Globulin Normal 3.3 LAB 60897638(L 1.1-1.9 ratio OINC) A/G Normal Ratio 1.2 Performed By: #### [id number] #### [facility] [employer] [address] [place] [address] EGFR Collected: 01/13/2018 Status: F Source: [facility] 5:55 PM [facility] REPOSITORY Order Comment: Order added by Discern Expert. TYPE CODE TESTS RESULT OUT OF RANGE REFERENCE UNITS LAB 97789809(LO mL/min/1.73 INC) m2 Normal eGFR >60 LAB 59237130(LO mL/min/1.73 INC) m2 Normal eGFR AA >60 Performed By: #### [id number] #### [facility] [address] [place] [address] Observed: 12/30/2017 Status: F Source: [place] CULTURE, NOSE 11:20 AM [facility] REPOSITORY Gram Stain Gram Stain 1+ Epithelial cells No White Blood Cells No organisms seen Nasoph. Cult Clinical correlation necessary, Possible skin contamination. ORGANISM 1: Staphylococcus hominis hominis Amount Growth Rare Staphylococcus hominis hominis: REACTION Benzylpenicillin NF 0.25 R Cefoxitin *NF + Clindamycin $$ <=0.25 R Inducable Clindamycin Resistan + Erythromycin $ >=8 R Gentamicin $ <=0.5 S Levofloxacin $ <=0.12 S Oxacillin NF <=0.25 R Tigecycline $$$$ <=0.12 S Rifampin $$ <=0.5 S Tetracycline NF >=16 R Vancomycin $ <=0.5 S (NF) indicates non-formulary drug at [facility]. Approval by Infectious Disease Specialist required before non-formulary drugs may be ordered and/or dispensed. * CLSI guidelines does not recommend testing of cephalosporins. This interpretation is deduced from Beta-lactam/penicillin results. Performed By: #### M100.0900 #### [facility] [place], [address] CMP Collected: 10/17/2017 Status: F Source: [facility] 11:22 AM [facility] REPOSITORY TYPE CODE TESTS RESULT OUT OF RANGE REFERENCE UNITS LAB 86113152(L 70-99 mg/dL OINC) High Glucose Lvl 149 LAB 57593650(L 8.4-10.2 mg/dL OINC) Calcium Normal Lvl 9.2 LAB 04616631(L 136-145 mEq/L OINC) Sodium Normal Lvl 136 LAB 65057161(L 3.5-5.1 mEq/L OINC) Normal Potassium Lvl 3.8 LAB 86497150(L 98-107 mEq/L OINC) Chloride Normal 104 LAB 72150278(L 24.0-30.0 mEq/L OINC) Low CO2 22.6 LAB 66073534(L 7-18 mg/dL OINC) BUN Normal 15 LAB 2263613(LO 0.6-1.3 mg/dL INC) Normal Creatinine 0.6 LAB 18881552(L 42-121 Int._Unit/ OINC) L Alk Phos Normal 98 LAB 91228273(L 0.2-1.0 mg/dL OINC) Bili Normal Total 0.5 LAB 13422679(L 3.2-5.0 G/DL OINC) Albumin Normal Lvl 4.1 LAB 15930600(L 6.4-8.3 G/DL OINC) Total Normal Protein 7.7 LAB 48310894(L 10-40 Int._Unit/ OINC) L ALT Normal 17 LAB 86993215(L 10-42 Int._Unit/ OINC) L AST Normal 24 LAB 53406606(L 5.4-30.0 ratio OINC) Normal BUN/Creat Ratio 25.0 LAB 06058455(L 2.0-4.0 G/DL OINC) Globulin Normal 3.6 LAB 80016503(L 1.1-1.9 ratio OINC) A/G Normal Ratio 1.1 Performed By: #### [id number] #### [facility] [employer] [facility] [place] [address] EGFR Collected: 10/17/2017 Status: F Source: [facility] 11:22 [facility] REPOSITORY Order Comment: Order added by Discern Expert. TYPE CODE TESTS RESULT OUT OF RANGE REFERENCE UNITS LAB 14373691(LO mL/min/1.73 INC) m2 Normal eGFR >60 LAB 42321527(LO mL/min/1.73 INC) m2 Normal eGFR AA >60 Performed By: #### [id number] #### [facility] [employer] [address] [place] [address] CBC W/ AUTO DIFF Collected: 10/17/2017 Status: F Source: [facility] 11:22 [facility] REPOSITORY TYPE CODE TESTS RESULT OUT OF RANGE REFERENCE UNITS LAB 63366425(L 3.6-11.0 E3/mcL OINC) High WBC 11.4 LAB 27763289(L 3.90-5.40 E6/mcL OINC) Normal RBC 4.95 LAB 67806760(L 12.0-16.0 G/DL OINC) Low Hgb 11.4 LAB 54863670(L 36.0-48.0 % OINC) Normal Hct 36.4 LAB 52576871(L 11.5-14.5 % OINC) High RDW 19.0 LAB 90357055(L 27.0-31.0 pg OINC) Low MCH 23.1 LAB 49120115(L 33.0-37.0 G/DL OINC) Low MCHC 31.4 LAB 07198004(L 78.0-100.0 fL OINC) Low MCV 73.5 LAB 50166973(L 7.4-11.0 fL OINC) Normal MPV 8.5 LAB 68267441(L 130-400 E3/mcL OINC) High Platelet 471 Performed By: #### [id number] #### [facility] [employer] [address] [place] [address] MORPH Collected: 10/17/2017 Status: F Source: [facility] 11:22 AM [facility] REPOSITORY Order Comment: Order Added by Discern Expert. TYPE CODE TESTS RESULT OUT OF REFERENCE UNITS RANGE LAB 03326935( LOINC) RBC Morph SEE Normal MORPHOLOGY LAB 28902139( LOINC) Hypochromasia 1+ Normal LAB 08543584( LOINC) Microcyte 1+ Normal Performed By: #### [id number] #### [facility] [employer] [address] [place] [address] ZZPLT MORPH Collected: 10/17/2017 Status: F Source: [facility] 11:22 AM [facility] REPOSITORY TYPE CODE TESTS RESULT OUT OF RANGE REFERENCE UNITS LAB 02968110(L OINC) Normal Platelet INCREASED Estimate LAB 88242218(L OINC) Normal Platelet Morph NORMAL Performed By: #### [id number] #### [facility] [employer] [address] [place] [address] AUTO DIFF Collected: 10/17/2017 Status: F Source: [facility] 11:22 AM [facility] REPOSITORY Order Comment: Order Added by Discern Expert. TYPE CODE TESTS RESULT OUT OF RANGE REFERENCE UNITS LAB 54285718(L 37.0-75.0 % OINC) Normal Neutro Auto 74.2 LAB 43331269(L 20.0-55.0 % OINC) Low Lymph Auto 19.3 LAB 51261194(L 0.0-10.0 % OINC) Normal Hayes Auto 5.0 LAB 32167209(L 0.0-11.0 % OINC) Normal Eos Auto 0.6 LAB 56936500(L 0.0-2.0 % OINC) Normal Basophil Auto 0.9 LAB 22639304(L 1.4-6.5 E3/mcL OINC) High Neutro 8.5 Absolute LAB 59318783(L 1.2-3.4 E3/mcL OINC) Normal Lymph Absolute 2.2 LAB 31151024(L 0.0-0.7 E3/mcL OINC) Normal Hayes Absolute 0.6 LAB 85124251(L 0.0-0.7 E3/mcL OINC) Normal Eos Absolute 0.1 LAB 29996860(L 0.0-0.2 E3/mcL OINC) Normal Basophil 0.1 Absolute Performed By: #### [id number] #### [facility] [employer] [address] [place] [address] CHEST PA AND LATERAL Observed: 08/10/2017 Status: F Source: [facility] 11:20 AM [facility] REPOSITORY [facility] Imaging Services [address] [place] [address] Chest PA and Lateral MR#: [id number] Acct: [id number] Name: MANDA MOODY Rep #: [id number] : 1975 F 42 From: Rivera Young MD PCP: Nancy Lucas DO Status: REG CLI Study: Chest PA and Lateral Date of Exam: 08/10/17 Exam# [id number] Ordering Dr: Jenelle London QC LAB TECHNICIAN-C STUDY: X-RAY CHEST REASON FOR EXAM: Female, 42 years [...] Signed: Rivera Young MD at 20:31 EDT , Service support , CC: NOLA London; Nancy Lucas DO Induction Brazer: Signed LAB MISCELLANEOUS Collected: 07/17/2017 Status: F Source: [facility] 4:07 [facility] REPOSITORY TYPE CODE TESTS RESULT OUT OF RANGE REFERENCE UNITS LAB 60528282(L OINC) quantiferon Normal Test Name LAB 58780690(L OINC) See Ref Lab Normal Status Report Performed By: #### [id number] #### [facility] [employer] [address] Collected: 07/17/2017 Status: F Source: [facility] 4:07 [facility] REPOSITORY TYPE CODE TESTS RESULT OUT OF RANGE REFERENCE UNITS LAB 84665813(L 70-99 mg/dL OINC) High Glucose Lvl 124 LAB 51449753(L 8.4-10.2 mg/dL OINC) Calcium Normal Lvl 9.2 LAB 01211008(L 136-145 mEq/L OINC) Sodium Normal Lvl 138 LAB 06491282(L 3.5-5.1 mEq/L OINC) Low Potassium Lvl 3.4 LAB 89935043(L 98-107 mEq/L OINC) Chloride Normal 105 LAB 71943232(L 24.0-30.0 mEq/L OINC) Low CO2 23.3 LAB 22199131(L 7-18 mg/dL OINC) BUN Normal 11 LAB 9364913(LO 0.6-1.3 mg/dL INC) Low Creatinine 0.5 LAB 90654194(L 5.4-30.0 ratio OINC) Normal BUN/Creat Ratio 22.0 LAB 14564190(L 42-121 Int._Unit/ OINC) L Alk Phos Normal 79 LAB 94097904(L 0.2-1.0 mg/dL OINC) Bili Normal Total 0.4 LAB 78043032(L 3.2-5.0 G/DL OINC) Albumin Normal Lvl 4.0 LAB 76516849(L 6.4-8.3 G/DL OINC) Total Normal Protein 7.2 LAB 39785774(L 10-40 Int._Unit/ OINC) L ALT Normal 15 LAB [id number](L 10-42 Int._Unit/ OINC) L AST Normal 21 LAB [id number](L 2.0-4.0 G/DL OINC) Globulin Normal 3.2 LAB [id number](L 1.1-1.9 ratio OINC) A/G Normal Ratio 1.2 Performed By: #### [id number] #### [place] [address] CBC W/ AUTO DIFF Collected: 07/17/2017 Status: F Source: [facility] 4:07 PM [facility] REPOSITORY TYPE CODE TESTS RESULT OUT OF RANGE REFERENCE UNITS LAB [id number](L 3.6-11.0 E3/mcL OINC) Normal WBC 9.8 LAB [id number](L 3.90-5.40 E6/mcL OINC) Normal RBC 4.80 LAB 13773033(L 12.0-16.0 G/DL OINC) Low Hgb 11.2 LAB 92976361(L 36.0-48.0 % OINC) Low Hct 35.1 LAB 23208477(L 11.5-14.5 % OINC) High RDW 18.3 LAB 13032853(L 27.0-31.0 pg OINC) Low MCH 23.3 LAB 29069773(L 33.0-37.0 G/DL OINC) Low MCHC 31.8 LAB 73501981(L 78.0-100.0 fL OINC) Low MCV 73.2 LAB 52354604(L 7.4-11.0 fL OINC) Normal MPV 8.5 LAB [id number](L 130-400 E3/mcL OINC) High Platelet 444 Performed By: #### [id number] #### [facility] [place] [address] MORPH Collected: 07/17/2017 Status: F Source: [facility] 4:[address] [place] [address] REPOSITORY Order Comment: Order Added by Discern Expert. TYPE CODE TESTS RESULT OUT OF REFERENCE UNITS RANGE LAB [id number]( LOINC) RBC Morph SEE Normal MORPHOLOGY LAB 62160237( LOINC) Microcyte 1+ Normal LAB 44684131( LOINC) 1+ Normal Anisocytosis Performed By: #### [id number] #### [facility] [place] [address] ZZPLT MORPH Collected: 07/17/2017 Status: F Source: [facility] [address] [place] [address] SYSTEM REPOSITORY TYPE CODE TESTS RESULT OUT OF RANGE REFERENCE UNITS LAB 24549542(L OINC) Normal Platelet NORMAL Estimate LAB 89775346(L OINC) Normal Platelet Morph NORMAL Performed By: #### [id number] #### [facility] [address] [place] [address] AUTO DIFF Collected: 07/17/2017 Status: F Source: [facility] [address] [place] [address] SYSTEM REPOSITORY Order Comment: Order Added by Discern Expert. TYPE CODE TESTS RESULT OUT OF RANGE REFERENCE UNITS LAB 31428831(L 37.0-75.0 % OINC) Normal Neutro Auto 65.7 LAB 03352524(L 20.0-55.0 % OINC) Normal Lymph Auto 21.4 LAB 44960544(L 0.0-10.0 % OINC) Normal Hayes Auto 9.6 LAB 73333789(L 0.0-11.0 % OINC) Normal Eos Auto 2.1 LAB 26159160(L 0.0-2.0 % OINC) Normal Basophil Auto 1.2 LAB 52497185(L 1.4-6.5 E3/mcL OINC) Normal Neutro 6.4 Absolute LAB 20777067(L 1.2-3.4 E3/mcL OINC) Normal Lymph Absolute 2.1 LAB 57858784(L 0.0-0.7 E3/mcL OINC) High Hayes Absolute 0.9 LAB 07394180(L 0.0-0.7 E3/mcL OINC) Normal Eos Absolute 0.2 LAB 71601954(L 0.0-0.2 E3/mcL OINC) Normal Basophil 0.1 Absolute Performed By: #### [id number] #### [facility] [address] [place] [address] EGFR Collected: 07/17/2017 Status: F Source: [facility] 4:07 PM [facility] REPOSITORY Order Comment: Order added by Discern Expert. TYPE CODE TESTS RESULT OUT OF RANGE REFERENCE UNITS LAB [id number](LO mL/min/1.73 INC) m2 Normal eGFR >60 LAB 14553948(LO mL/min/1.73 INC) m2 Normal eGFR AA >60 Performed By: #### [id number] #### [facility] [address] [place] [address] ALLERGIES ALLERGIES DATE TYPE / CODE NAME / CODE REACTION SEVERITY SOURCE Drug/604528 codeine ITCHY Jain 003(SNOMED [facility]) System Repository Drug/304869 No Known Jain 003(SNOMED Allergies [facility] CT) System Repository ENCOUNTERS ENCOUNTERS ADMIT/DISCHARGE ACCOUNT NUMBER ADMITTING ENCOUNTER LOCATION SOURCE CLASS 05/27/2018 [id number] [facility] ding:CT Repository 05/21/2018 [id number] [facility] ding:LABSPEC Repository 05/05/2018 [id number] Ambulatory Building:[facility] Practices Repository 02/25/2018 [id number] [facility] ding:MRI Repository 02/15/2018 [id number] [facility] ding:HPRAD Repository 12/30/2017 [id number] [facility] ding:LABSPEC Repository 10/17/2017/02/28/20 [id number] [place] [address] ding:.[facility] Repository 10/17/[id number] Repository 08/10/2017 [id number] [facility] ding:HPRAD Repository 08/01/2017/[id number] Robby Rao Emergency [facility] [address] [facility] ding: Health System EDRoom: WR Repository 07/17/2017/07/18/[id number] Kyle Kerr [facility] [address] [facility] ding:.[facility] Repository PAYERS PAYERS ENCOUNTER GUARANTOR PAYER SUBSCRIBER SOURCE 05/27/2018 MANDA Myrick Primary ESTELA W Madhuri [id number] SR Insurance:ANTHEMPolic WILSONDOB: [address] y Number: [id number] Hospital [address]Rfm: (419) [id number] Repository [phone] (HP) андрей Date:0727-27-23JI [address]DXFRKFG, [place] [address]NB: 05/27/2018 Secondary NOT GIVENUNK Madhuri Insurance:SELF PAY [facility] Number: Effective Repository Date:2018-05-21 05/21/2018 MANDA Myrick Primary ESTELA W Madhuri [id number] SR Insurance:ANTHEMPolic WILSONDOB: [address] y Number: [id number] Hospital [address]Gdg: (419) [id number] Repository [phone] () андрей Date:6428-79-12OQ [address]HGKNE, [place] [address]ON: 05/21/2018 Secondary NOT GIVENUNK [place] Insurance:SELF PAY [facility] Number: Effective Repository Date:2018-05-21 05/05/2018 Manda Myrick Primary Estela W OHIP Practices WilsonDOB: Insurance:[place] WilsonDOB: Repository [id number] /[facility] Number: [id number] [address] [id number] [address] [place] [address] [address] [place] [address]Nzg: [phone]) Date:9981-71-42Zghm [address]Wsf: Name:GP [phone] (HP) (HP)Tel: [phone], [place] [phone] (KK) [id number]: 02/25/2018 MANDA Myrick Primary ESTELA Warner Madhuri [id number] SR Insurance:ANTHEMPolic WILSONDOB: Community [address] [place] y Number: [id number] Hospital [address]Ifw: (419) [id number] Repository [phone] () андрей Date:2575-08-14PG [address], [place] [address]ST: 02/25/2018 Secondary NOT GIVENUNK [place] Insurance:SELF PAY [facility] Number: Effective Repository Date:2018-02-23 02/15/2018 MANDA Myrick Primary ESTELA Warner Madhuri [id number] S R Insurance:ANTHEMPolic WILSONDOB: Community [address] [place] y Number: [id number] Hospital [address]Uwb: (419) [id number] Repository [phone] () андрей Date:9478-10-49QO [address]VQMVFQY, [place] [address]WE: 02/15/2018 Secondary NOT GIVENUNK [place] Insurance:SELF PAY [facility] Number: Effective Repository Date:2018-02-15 12/30/2017 MANDA Myrick Primary ESTELA Warner Madhuri [id number] S R Insurance:ANTHEMPolic WILSONDOB: Community [address] [place] [address] y Number: [id number] Hospital [address]Rnf: (419) [id number] Repository [phone] () андрей Date:2908-50-51OZ [address]WYYXWSB, [place] [address]QO: 12/30/2017 Secondary NOT GIVENUNK [place] Insurance:SELF PAY [facility] Number: Effective Repository Date:2017-12-30 10/17/2017 MANDA Myrick Primary ESTELA Warner Jain WILSONDOB: Insurance:ANTHEMPolic WILSONDOB: [facility] [id number] y Number: Effective [id number] System STATE ROUTE Date:2017-10-17 [address] Repository [address] [place] [address] [id number] [address] [place] [address] [id number]: Name:Jaxon [facility] [phone]: [id number], [place] (HP) [id number]: [phone]) (HP) [phone] (WP) 10/17/2017 MANDA Elen Yesi PALMER WILSONDOB: University WILSONDOB: Insurance:AnthemPolic [id number] y Number: Repository [address] R[address] [id number] [address] [place] [address] андрей Date:Plan [id number]: Name:Health (HP) 08/10/2017 Manda Elen Primary ESTELA Warner [place] [id number] [address] R Insurance:ANTHEMPolic WILSONDOB: [address] y Number: [id number] Hospital [address]Biu: (617) [id number] Repository () андрей Date:0470-65-12FX[address] [address]ZQ: 08/10/2017 Secondary NOT GIVENUNK [place] Insurance:SELF PAY [facility] Number: Effective Repository Date:2017-08-10 08/01/2017 MANDA Myrick Primary ESTELA [facility] WILSONDOB: Insurance:ANTHEMPolic WILSONDOB: [facility] y Number: Effective [id number] System [address] R[address]TE Date:2017-08-01 [address] Repository [address] [place] [address] [id number] [address] [place] [address] [id number]: Name:[facility] [id number]: [address] [place] [address] (HP) [id number]: [phone]) (HP) [phone] (WP) 07/17/2017 MANDA Elen Yesi Lawson WILSONDOB: Insurance:ANTHEMPolic WILSONDOB: [facility] y Number: Effective [id number] System [address] R[address] Date:2017-07-17 [address] Repository [address] [place] [address] [id number] [address] [place] [address] [id number]: Name:Jaxon GILBERT [id number]: [id number], [place] (HP) [phone]: [phone]) (HP) [phone] (WP)
== END ==
PROVIDERS: Family Provider Internal Medicine; PCP Internal Medicine; Referring Provider Otolaryngology; Visit Provider Otolaryngology
DX: J02.9 Acute pharyngitis, unspecified (principal)
CPT/HCPCS: 87070; 87205

== ENCOUNTER → 2018-05-27 14:55 | Outpatient (CLI) | payer BC, SELFPAY ==
--- NOTE | 2018-05-27 14:56 | CT_ITS ---
STUDY: CT MAXILLOFACIAL SINUSES REASON FOR EXAM: Female, 42 years old. Sinusitis RADIATION DOSAGE (If Supplied By Facility): CTDIvol = ( 33.45 ) mGy, DLP = ( 804.77 ) mGycm TECHNIQUE: The patient was scanned in a multi detector CT scanner. High resolution axial imaging was performed without the administration of intravenous contrast material. Sagittal and coronal images were reconstructed. Individualized dose optimization techniques were used for this CT. COMPARISON: None. FINDINGS: : NASAL SEPTUM: Slightly bowed to the left with a spur pointing leftward CRIBRIFORM PLATE AND JENNIFER KATHY: The fovea ethmoidalis, lateral lamella and lamina cribrosa are normal. The anterior ethmoidal notch is normal with no supraorbital pneumatization. The olfactory fossa is symmetric with a Keros type II. No skull base dehiscence LAMINA PAPYRACEA: No remote orbital fracture and no orbital prolapse into the ethmoidal sinus . BONY CAMEJO: No dehiscence, demineralization or thickness TURBINATES: Normal thickness and no paradoxical orientation. No brenda bullosa . No turbinectomy OSTIOMEATAL UNITS: Patent with no ethmoidectomy, maxillary antrostomy, uncinectomy or turbinoplasty SPHENOETHMOIDAL RECESS: Patent FRONTAL SINUSES: Well developed and pneumatized with no abnormal soft tissue attenuations in them ETHMOID AIR CELLS: Aggar Nasi air cells are noted. No [place] air cells. Both the anterior and posterior ethmoidal air cells are clear of abnormal soft tissue attenuations MAXILLARY SINUSES: Normal with no arrested pneumatization or hyperpneumatization and no abnormal soft tissue attenuations SPHENOID SINUSES: Normal with conchal, presellar or sellar type pneumatization. No dehiscence into carotid canal and no optic nerve dehiscence within the sphenoid sinus. No [place] air cells ORBITS: Negative SKULL BASE/CRANIOVERTEBRAL JUNCTION/UPPER CERVICAL SPINE.: Normal IMPRESSION: Negative examination with no maxillo-infundibular, nasofrontal, ostiomeatal unit or sphenoethmoidal pattern of obstructive disease. There is also no evidence of sinonasal polyposis. A spur pointing leftward from the septum. . Electronically Signed: Alex Galo MD at 4:42 EST Tel , Service support , CT/Sinus/Facial Bone
== END ==
PROVIDERS: Family Provider Internal Medicine; PCP Internal Medicine; Referring Provider Otolaryngology; Visit Provider Otolaryngology
DX: J32.9 Chronic sinusitis, unspecified (principal)
CPT/HCPCS: 70486

== ENCOUNTER → 2019-03-02 14:12 | Outpatient (CLI) | payer BC, SELFPAY ==
--- NOTE | 2019-03-02 14:18 | RAD_ITS ---
STUDY: X-RAY - LEFT SHOULDER REASON FOR EXAM: Female, 43 years old. Pain. Unsure of injury. TECHNIQUE: 4 view(s) of the shoulder. COMPARISON: Chest, August 10, 2018. FINDINGS: Normal glenohumeral articulation. There is mild degenerative arthrosis of the acromioclavicular joint without inferior osseous spur formation. Normal acromion. There is no acute fracture, dislocation or destructive osseous pathology. Normal humeral head and visualized proximal humerus. The soft tissue structures are unremarkable. Normal visualized pulmonary apex. RAD/Shoulder min 2 Views IMPRESSION: Very mild degenerative changes of the acromioclavicular joint. There is no acute fracture or dislocation. There is no major interval change when compared to a chest of August 10, 2017. Electronically Signed: Chele Kulkarni DO at 17:04 EDT Tel [phone], Service support ,
== END ==
PROVIDERS: Family Provider Internal Medicine; PCP Internal Medicine; Referring Provider Nurse Practitioner; Visit Provider Nurse Practitioner
DX: M25.512 Pain in left shoulder (principal)
CPT/HCPCS: 73030

== ENCOUNTER → 2019-03-17 13:07 | Outpatient (CLI) | payer BC, SELFPAY ==
[2019-03-17 12:44] VITALS: BMI 36.6
--- NOTE | 2019-03-17 13:09 | RAD_ITS ---
STUDY: X-RAY - CERVICAL SPINE REASON FOR EXAM: Female, 43 years old. Left-sided neck pain. TECHNIQUE: 5 view(s) of the cervical spine were obtained including oblique views. COMPARISON: None FINDINGS: Normal anterior atlantoaxial articulation. Normal odontoid process. There is straightening of the normal cervical lordosis. Mild degree of disc space narrowing with anterior spondylosis at the C5-C6 level. Normal visualized intervertebral neuroforamina. The soft tissue structures are unremarkable. RAD/Cerv Spine 4 or 5 Views IMPRESSION: Mild degree of disc space narrowing and spondylosis at the C5-C6 level. Loss of the normal cervical lordosis. Electronically Signed: Amarjit Patel, at 14:02 EST , Service support ,
--- NOTE | 2019-03-17 13:28 | RAD_ITS ---
STUDY: X-RAY - LEFT SHOULDER REASON FOR EXAM: Pain, axillary view to accompany previous radiographs. TECHNIQUE: A single view of the shoulder. COMPARISON: Radiographs 03/02/2019. FINDINGS: Normal axillary view of the left shoulder. Electronically Signed: Sher Andres MD at 12:42 EST Tel , Service support , RAD/Shoulder One View
== END ==
PROVIDERS: Family Provider Internal Medicine; PCP Internal Medicine; Referring Provider Orthopaedic Surgery; Visit Provider Orthopaedic Surgery
DX: M79.622 Pain in left upper arm (principal); M25.512 Pain in left shoulder
CPT/HCPCS: 72050; 73020

== ENCOUNTER 2019-03-28 17:00 | Outpatient (RCR) | payer BC, SELFPAY ==
[2019-03-17 12:44] VITALS: BMI 36.6
--- NOTE | 2019-03-17 16:22 | HP.PTEVAL_ITS ---
Patient's Visit Information MANDA MOODY is a 43 year old F referred to Physical Therapy by Sarai Berumen DO with a diagnosis of L shoulder impingement. Date of Evaluation: 03/17/19 Physical Therapist: Agustín Joseph, PT, ATC - Visit Plan Frequency: 1x/Week Duration: 2 Weeks Plan: Issue and instruct on HEP of rotator cuff and scap stab ex's in 2 visits - Subjective Findings: Pt reports her L shoulddr was sore for a couple of months. Pt reports she just woke up one morning and she had L shoulder pain. Pt reports no PMHx recently. Pt reports she is L hand dominant. Pt reports no tingling or numbness in L UE. Pt reports sleep difficulty secondary to pain. Pt reports reaching across her body and house chores cause her to have increased pain. Pt reports she had nerve damage at in her R UE and is unable to use it functionally. Pt reports her pain is 4/10 at rest, increases to 8/10 at worst - Pain L shoulder pain Pain Intensity (Out of 10): 4 Pain Intensity Range: 8 - Objective Neuro: B UE sensation is WNL to oight touch. B biceptial reflex= 2/3. Palpation: Pt is sore on the posterior and lateral aspect of L shoulder along distribution of the supraspinatus. ROM: R shoulder not tested. L shoulder flex= 165, abd= 165, ER= 65, IR WNL. MMT: R shoulder NT. L shoulder 4/5 throughout. Special testing: Pos empty can test. - Goals Goal 1:: I with HEP Goal Time Frame: 2 Weeks - Rehabilitation Potential Physical Therapy Diagnosis: L shoulder pain, weakness, and limited ROM secondary to L shoulder impingement. Rehabilitation Potential: Good - Anticipated Interventions Patient/Client Instruction: Educate patient on: Condition, Plan of Care For the Purpose of:: To improve self management Therapeutic Exercise to Include: Strength training, Endurance training, Scapular Strength/Stabilization For the Purpose of:: To decrease pain, To increase ROM, To improve ability to perform ADL's Cryotherapy (ice pack, ice massage): Yes For the Purpose of:: To decrease pain Thank you for the opportunity to evaluate your patient. For Medicare and Medicare HMO plans, please review the plan of care and approve it. It will need to be FAXED BACK to us at [phone] for Medicare purposes. For Medicare only, by signing this I certify the plan of care. Please let me know if there are questions or concerns regarding this plan of care. Physician Sign ature: Date:
--- NOTE | 2019-03-28 17:34 | HP.PTDCSUM ---
HP - PT D/C Summary It has been my pleasure to treat MANDA MOODY under orders from Sarai Berumen DO, for the diagnosis of L shoulder impingement for a total of 3 visit(s). Discharge Date: Please see the following information for a summary of their discharge status. - Subjective Subjective: No pain this date - Pain L shoulder pain Pain Intensity (Out of 10): 0 - Objective Objective/Function: Pt is now I with HEP - Goals Goal 1:: I with HEP - Plan Plan: Discharge - D/C Information If there are questions or concerns regarding this patient's physical therapy, please feel free to call me at [phone]. Thank you for the referral of this patient. Sincerely, Agustín Joseph, PT, ATC
== END 2019-03-28 19:00 | disposition home or self-care (01) ==
LOC: PT 17:00
PROVIDERS: Family Provider Internal Medicine; PCP Internal Medicine; Referring Provider Orthopaedic Surgery; Visit Provider Orthopaedic Surgery
DX: M25.812 Other specified joint disorders, left shoulder (principal)
CPT/HCPCS: 97110; 97161; 97530

== ENCOUNTER 2019-04-12 20:32 | Emergency (ER) | payer BC, SELFPAY ==
[2019-03-17 12:44] VITALS: BMI 36.6
[2019-04-12 20:33] VITALS: BP 153/89; PULSE 90; RESP 17; TEMP 36.1; O2SAT 100; BMI 35.9
--- NOTE | 2019-04-12 20:49 | RAD_ITS ---
STUDY: X-RAY - LEFT ANKLE REASON FOR EXAM: Female, 43 years old. Pain TECHNIQUE: 3 view(s) of the ankle. COMPARISON: None. FINDINGS: Normal visualized distal tibia and fibula. Normal medial and lateral malleoli. Questionable fracture line through the posterior malleolus. Normal tibiotalar articulation and ankle mortise. Normal visualized talus and calcaneus. The visualized subtalar, talonavicular, calcaneocuboid and tarsal articulations are normal. Soft tissue edema. RAD/Ankle min 3 Views IMPRESSION: Questionable fracture line through the posterior malleolus. Electronically Signed: Néstor Knight DO at 21:08 EST Tel [phone], Service support ,
--- NOTE | 2019-04-12 20:51 | ED.DCSUM_ITS ---
History of Present Illness Chief Complaint: Lower Extremity Injury Informant: Patient Onset: Weeks Context: Gradual Onset Timing: Continuous Current Severity: Moderate Maximum Severity: Moderate Narrative: The patient presents to the emergency department with left ankle injury. Patient states that she twisted her ankle the day after Thanksgiving when she was taking down decorations. She states that she would have some pain from time to time, but this weekend, the pain worsened. She states she is having a difficult time bearing weight. She denies other injury. She is otherwise been in her normal state of health. Prior similar symptoms: No Recent Illness/Hospitalization: No Past Medical History - Allergies and Home Meds Allergies/Adverse Reactions: Allergies codeine Adverse Reaction (Severe, Verified 04/12/19 20:33) itchy, nausea Primary Care Physician: Amari Fields DO [STAFF PHYSICIAN] - Prior records reviewed: Yes Past Medical History: - - Fibromyalgia, rheumatoid arthritis Surgical History: noncontributory Review of Systems General: Denies: Chills, Fever, Sweats Eyes: Denies: Visual changes - bilaterally, Diplopia ENT: Denies: Rhinorrhea, Sore throat Cardiovascular: Denies: Chest pain, Palpitations Respiratory: Denies: Dyspnea, Cough, Dyspnea on exertion Gastrointestinal: Denies: Abdominal pain, Nausea, Vomiting, Diarrhea, Melena, Hematochezia Genitourinary: Denies: Dysuria, Hematuria, Frequency Musculoskeletal: Denies: Back pain, Extremity Pain Skin: Denies: Rash, Wounds Neurological: Denies: Headache, Weakness, Numbness Physical Exam Vital Signs/Narrative: Vital Signs Temp Pulse Resp BP Pulse Ox 04/12/19 20:33 97.0 F L 90 17 153/89 H 100 Inital Vital Signs reviewed: Yes General: Well nourished, Well developed, No Acute Distress Head: Normocephalic, Atraumatic Eyes: Perrl, EOMI ENT: Moist mucous membranes, No rhinorrhea Neck: Supple, Nontender Cardiovascular: Regular rate, Regular rhythm, No murmurs Respiratory: No distress, CTA bilaterally, Chest nontender Abdomen: Soft, Nontender, Nondistended, Normal bowel sounds Back: Nontender, Normal Inspection Extremities: No edema, Tenderness - Tenderness over the medial malleolus. Normal pulses. Zelaya test negative. Skin: Normal color, No rash Neurological: Alert, Oriented x3, Cranial nerves II-XII grossly intact, Normal Strength, Normal Sensation Psychological: Normal affect, Normal Mood Diagnostic/Tx/Re-eval Clinical Impression(s) from Imaging Studies Ankle X-Ray 04/12/19 20:49 IMPRESSION: Questionable fracture line through the posterior malleolus. Electronically Signed: Néstor Knight DO at 21:08 EST Tel [phone], Service support , - Medical Decision Making The patient presents to the emergency department with 3 weeks of persistent ankle pain. She has no gross laxity of the ankle. Her skin is intact. Her pulses are normal. Plain films were obtained. There is a questionable nondisplaced fracture of the posterior malleolus. It almost appears to be like an avulsion fracture. The patient will be treated with a boot orthosis. 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 She has been weightbearing for 3 weeks. I do feel that she can safely weight-bear and follow-up with orthopedics. She is comfortable with this plan of care. Impression 1. Nondisplaced medial malleolus fracture ED Disposition - Plan for ED Patient: Disposition: Home or Assisted Living Instructions: FRACTURE, Lower Extremity Prescriptions: Hydrocodone Bitart/Apap 5-325 [[place] 5MG-325MG] 1 tab PO Q6H PRN PRN 3 Days #10 tab PRN Reason: Pain Prescription Printed Referrals: Amari Fields DO [STAFF PHYSICIAN] -
== END 2019-04-12 21:33 | disposition home or self-care (01) ==
LOC: ED 20:57
PROVIDERS: Emergency Provider Emergency Medicine; Family Provider Internal Medicine; PCP Internal Medicine
DX: S82.55XA Nondisplaced fracture of medial malleolus of left tibia, initial encounter for closed fracture (principal); X50.1XXA Overexertion from prolonged static or awkward postures, initial encounter; Y93.9 Activity, unspecified; Y92.9 Unspecified place or not applicable; M79.7 Fibromyalgia; M06.9 Rheumatoid arthritis, unspecified; Z79.899 Other long term (current) drug therapy
CPT/HCPCS: 73610; 99284

== ENCOUNTER → 2019-04-19 14:23 | Outpatient (CLI) | payer BC, SELFPAY ==
[2019-04-19 14:10] VITALS: BMI 35.9
--- NOTE | 2019-04-19 14:24 | RAD_ITS ---
STUDY: X-RAY - LEFT ANKLE REASON FOR EXAM: Follow-up from injury one week ago. TECHNIQUE: 3 view(s) of the ankle. COMPARISON: Radiographs 04/12/2019. FINDINGS: There is mild deformity of the posterior malleolus suggestive of remote fracture and unchanged since the prior study. Normal medial and lateral malleoli. Normal tibiotalar articulation and ankle mortise. Normal visualized talus and calcaneus. There is an os trigonum. The visualized subtalar, talonavicular, calcaneocuboid and tarsal articulations are normal. There is pes planus deformity. RAD/Ankle min 3 Views IMPRESSION: No interval change of mild deformity of the posterior malleolus suggestive of remote fracture. Electronically Signed: Sher Andres MD at 15:06 EST Tel , Service support ,
== END ==
PROVIDERS: Family Provider Internal Medicine; PCP Internal Medicine; Referring Provider Orthopaedic Surgery; Visit Provider Orthopaedic Surgery
DX: M25.572 Pain in left ankle and joints of left foot (principal)
CPT/HCPCS: 73610

== ENCOUNTER → 2019-05-07 09:07 | Outpatient (CLI) | payer BC, SELFPAY ==
[2019-04-19 14:10] VITALS: BMI 35.9
--- NOTE | 2019-05-07 09:10 | MRI_ITS ---
STUDY: MRI LEFT ANKLE WITHOUT CONTRAST REASON FOR EXAM: Follow-up from ankle fracture in March. TECHNIQUE: Standardized fat and water weighted pulse sequences were obtained in all 3 orthogonal planes. COMPARISON: Radiographs 04/19/2019. FINDINGS: Normal subcutis adipose space. There is a very small volume of fluid in the proximal posterior tibialis and flexor digitorum longus tendon sheaths (T2 axial images 8-12). The posterior tibialis and flexor digitorum longus tendons are morphologically normal. Normal flexor hallucis longus tendon. There is a very small volume of fluid in the retromalleolar peroneal tendon sheath (T2 axial images 13-15). The peroneus longus and brevis tendons are morphologically normal. Normal tibialis anterior tendon. Normal extensor hallucis longus tendon. Normal extensor digitorum longus tendons. Normal Achilles tendon and teno-osseous insertion. Normal plantar fascia. Normal plantar calcaneal tubercles. Normal intrinsic muscles of the rearfoot. There is a mild sprain of the anterior tibiofibular ligament of the distal tibiofibular syndesmotic ligamentous complex (inversion recovery axial series 7 image 7). Normal posterior tibiofibular ligament. There is a small healing nondisplaced fracture of the posterior malleolus with mild residual bone edema (inversion recovery sagittal image 9). Normal lateral ligamentous complex. There is mild edema in the sinus tarsi (inversion recovery sagittal images 9, 10). Normal deltoid ligamentous complexes. Normal plantar calcaneonavicular (spring) ligament. There is an osteochondral lesion of the posterior medial talar dome (T1 sagittal image 7; T1 axial image 14) measuring approximately 0.8 x 0.3 cm (AP x transverse) with slight bone edema of the adjacent parent bone (T2 coronal image 14). There is a very small tibiotalar joint effusion (inversion recovery sagittal image 10). There is a bone contusion of the medial body of the talus (T2 coronal images 15-17). Normal subtalar articulations. There is an os trigonum. There is a talonavicular joint effusion (inversion recovery sagittal images 7-10). Normal calcaneocuboid articulation. Normal navicular-cuneiform articulations. MRI/Lower Ext Joint Only (Routine) IMPRESSION: Mild sprain of the anterior tibiofibular ligament. Small healing nondisplaced fracture of the posterior malleolus. Osteochondral lesion of the medial talar dome. Mild bone contusion of the medial body of the talus. Very mild posterior tibialis and flexor digitorum longus tenosynovitis. Very mild peroneal tenosynovitis. Mild edema in the sinus tarsi. Talonavicular and tibiotalar joint effusions. Electronically Signed: Sher Andres MD at 9:07 EST Tel , Service support ,
[2019-05-07 10:38] LABS: Absolute Lymphocyte Count 1.96 X10^3/uL (0.83-4.51); Absolute Neutrophil Count 5.3 X10^3/uL (2.0-7.7); Basophil# 0.06 X10^3/uL; Basophil% 0.7 % (0-1); Eosinophil# 0.15 X10^3/uL; Eosinophils% 1.9 % (0-5); Hematocrit 38.4 % (37-47); Lymphocyte # 1.96 X10^3/ul (4.0); Lymphocyte % 24.2 % (19-41); Mean Corp Hgb Conc 31.3 g/dL (32-36); Mean Corpuscular Hgb 27.3 pg (27.0-32.0); Mean Corpuscular Volume 87.5 fL (81-99); Mean Platelet Vol. 9.9 fl (6.2-12.0); Monocyte# 0.57 X10^3/uL; NRBC Flagged by Analyzer 0 % (0-5); Neutrophil # 5.34 X10^3/uL (2.7-7.7); Platelet Count 342 K/mm3 (150-450); RBC Distribution Width CV 15.7 % (11.6-14.6); RBC Distribution Width SD 49.1 fl (35.1-43.9); Red Blood Count 4.39 M/mm3 (4.2-5.4); White Blood Count 8.1 K/mm3 (4.4-11.0)
[2019-05-07 11:18] LABS: ALB/GLOB Ratio 0.9 RATIO (0.9-2.4); AST(SGOT) 63 U/L (15-37); Alanine Aminotransfer ALT/SGPT 63 U/L (13-56); Albumin, Serum 3.3 g/dL (3.2-5.0); Alkaline Phosphatase 106 U/L (45-117); Anion Gap 5 (5-15); BUN 14 mg/dL (7-18); BUN/Creat Ratio 19.4 RATIO (10-20); Calcium,Total 8.1 mg/dL (8.5-10.1); Chloride 107 mmol/L (98-107); Creatinine, Serum 0.72 mg/dL (0.55-1.02); EST Glomerular Filtration Rate 92 mL/min (>60); Est Glom Filt Rate - Afr Amer 112 mL/min (>60); Globulin 3.8 g/dL (2.2-4.2); Glucose 81 mg/dL (74-106); Potassium 4.4 mmol/L (3.5-5.1); Protein, Total 7.1 g/dL (6.4-8.2); Sodium Level 138 mmol/L (136-145)
== END ==
PROVIDERS: Family Provider Internal Medicine; PCP Internal Medicine; Referring Provider Orthopaedic Surgery; Visit Provider Orthopaedic Surgery
DX: S82.392A Other fracture of lower end of left tibia, initial encounter for closed fracture (principal); S93.432A Sprain of tibiofibular ligament of left ankle, initial encounter; M06.09 Rheumatoid arthritis without rheumatoid factor, multiple sites; Z79.899 Other long term (current) drug therapy; M79.7 Fibromyalgia; G47.33 Obstructive sleep apnea (adult) (pediatric); M21.40 Flat foot [pes planus] (acquired), unspecified foot; K21.0 Gastro-esophageal reflux disease with esophagitis
CPT/HCPCS: 36415; 73721; 80053; 85025

== ENCOUNTER 2019-05-19 16:52 | Outpatient (RCR) | payer BC, SELFPAY ==
[2019-05-12 14:09] VITALS: BMI 35.9
--- NOTE | 2019-05-19 17:48 | HP.PTEVAL_ITS ---
Patient's Visit Information MANDA MOODY is a 43 year old F referred to Physical Therapy by Sarai Galvez DO with a diagnosis of L high ankle sprain, talus bony edema. Date of Evaluation: 05/19/19 Physical Therapist: Abilio Killian, DPT, OCS, CSCS - Visit Plan Frequency: 1-2x /Week Duration: 4-6 Weeks Plan: 1-2x/week for 4-6 weeks... Initially weekly to progress HEP of today's ROM to strengthening next sessiona dn wean back to no boot walking. Pt to see foot doctor next week and orthotics should be considered. - Subjective Findings: Broken L ankle walking up and down steps 04/01/20. Did not twist it but it ust started hurting adn got worse. Checked out 10 days later at ER and did Xrays. Had MRI and Dr. galvez said she has 3 sprained tendons. Been in boot since early April for about 5 weeks. Will see specialist Dr. Borrego next week to see if surgery is appropriate. Has L torn RC. Can walk in boot pretty comfortably. Has not tried without it except to shower and it is OK. No exercises. Sleep is OK and no boot to sleep. 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 Spends day babysitting 2 yo grandson. Laundry is made tough in the boot. does it for now. does cooking adn cleaning slower. No active hobbies. No regular ex but did TM prior to this. No falls, no cane or walker. - Pain L foot Pain Intensity (Out of 10): 0 Pain Intensity Range: 0, 2 - Objective Boot on L foot doned and doffed I. Walks well with it without pain or antalgia. trasnfers I. AROM L ankle 4 DF, 55 PF without pain, inversion painful at 20 and to 33 overall, traction helps relieve pain. eversion 18 and not painful. R ankle aROM 3 DF, 55 PF, 35 inv adn 20 eversion. strength in L ankle 4- and r ankle 4+, no pain. Sensation LE WNL to gross light touch. Metatarsals moving well B. Big toe with full ROM and strength B without pain. Mild swelling B LE. Walks without boot 10 feet today without pain but very severe pes planus L>R. Can do heel raises UE asssited with mild pain today. - Goals Goal 1:: Full aROM L ankle without pain. Goal Time Frame: 2-4 Weeks Goal 2:: Pt walk community distances without AD I with good balance and no pain Goal Time Frame: 4-6 Weeks Goal 3:: Steps reciprocal with one rail Goal Time Frame: 4-6 Weeks Goal 4:: I approp HEP to minimize future problems Goal Time Frame: 4-6 Weeks Goal 5:: Pt feel 90% back to normal in L ankle Goal Time Frame: 4-6 Weeks - Rehabilitation Potential Physical Therapy Diagnosis: L ankel sprain. Rehabilitation Potential: Fair - Anticipated Interventions Patient/Client Instruction: Educate patient on: Condition, Plan of Care For the Purpose of:: To decrease pain, To improve muscle performance and motor function, To increase tolerance to activity/condition/position, To improve gait and locomotor functions, To improve safety Therapeutic Exercise to Include: Strength training, Flexibilty training, Gait and locomotor training, Passive ROM, Active ROM For the Purpose of:: To decrease pain, To improve muscle performance and motor function, To increase tolerance to activity/condition/position, To improve ability of physical actions for home/community/work/leisure, To improve gait and locomotor functions Manual Therapy Techniques to Include: Mobilization, Soft tissue mobilization For the Purpose of:: To increase ROM Thank you for the opportunity to evaluate your patient. For Medicare and Medicare HMO plans, please review the plan of care and approve it. It will need to be FAXED BACK to us at [phone] for Medicare purposes. For Medicare only, by signing this I certify the plan of care. Please let me know if there are questions or concerns regarding this plan of care. Physician Signature: Date:
--- NOTE | 2019-08-09 14:40 | HP.PT.NRP ---
MANDA MOODY was seen in my office for initial evaluation on 05/19/19. The following Plan of Care was established for this patient: Initial Frequency: 1-2x /Week Initial Duration: 4-6 Weeks Patient/Client Instruction: Educate patient on: Condition, Plan of Care For the Purpose of:: To decrease pain, To improve muscle performance and motor function, To increase tolerance to activity/condition/position, To improve gait and locomotor functions, To improve safety Therapeutic Exercise to Include: Strength training, Flexibilty training, Gait and locomotor training, Passive ROM, Active ROM For the Purpose of:: To decrease pain, To improve muscle performance and motor function, To increase tolerance to activity/condition/position, To improve ability of physical actions for home/community/work/leisure, To improve gait and locomotor functions Manual Therapy Techniques to Include: Mobilization, Soft tissue mobilization For the Purpose of:: To increase ROM This patient was last seen in our office 05/19/19. Pertinent comments regarding their Physical therapy will appear below: Pt seen for evaluation but foot doctor did not want therapy at that time. She was to call if/when foot doctor wanted PT. At this point. it has been over two months and I will discontinue her from my care. At this point I will be discontinuing this patient from physical therapy. I would be happy to see this patient again in the future if found appropriate by the physician. Thank you! Abilio Killian, DPT, OCS, CSCS
== END 2019-05-19 19:00 | disposition home or self-care (01) ==
LOC: PT 16:52
PROVIDERS: Family Provider Internal Medicine; PCP Internal Medicine; Referring Provider Orthopaedic Surgery; Visit Provider Orthopaedic Surgery
DX: S93.402D Sprain of unspecified ligament of left ankle, subsequent encounter (principal); R60.0 Localized edema; M25.572 Pain in left ankle and joints of left foot
CPT/HCPCS: 97110; 97161

== ENCOUNTER 2019-06-04 14:49 | Emergency (ER) | payer BC, SELFPAY ==
[2019-05-12 14:09] VITALS: BMI 35.9
[2019-06-04 14:50] VITALS: BP 120/83; PULSE 81; RESP 16; TEMP 36.6; O2SAT 99; BMI 36.6
--- NOTE | 2019-06-04 14:55 | RAD_ITS ---
STUDY: X-RAY - LEFT HAND, ATTENTION 4 FINGER REASON FOR EXAM: Female, 43 years old. PAIN/ST S/BRUISE LT RING FINGER. FINGER VS DOOR TECHNIQUE: 3 view(s) of the finger were obtained. COMPARISON: None. FINDINGS: Normal metacarpal head. Normal metacarpophalangeal joint. Normal proximal phalanx. Normal middle phalanx. Normal distal phalanx. Normal proximal interphalangeal joint. There is degenerative change in the distal interphalangeal joint. The fracture line is not identified. RAD/Finger(s) Min 2 Views IMPRESSION: Degenerative change. No definitive evidence of an acute fracture. Electronically Signed: Lubna Husain MD at 15:15 EST Tel , Service support ,
--- NOTE | 2019-06-04 15:35 | ED.DCSUM_ITS ---
History of Present Illness Informant: Patient Occurred: Today Mechanism/Context: Injury Onset: Today Context: Sudden Onset Timing: Continuous Quality of Pain: Throbbing Location: left ring finger Current Severity: Moderate Maximum Severity: Severe Worsened by: movement Relieved by: rest Associated Symptoms: Negative for: Parasthesia, Weakness, Loss of Funtion Narrative: 43-year-old [id number] female presents with a injury to her left ring finger. She got it slammed in the car door just prior to arrival. She is left- hand dominant. She did not suffer any lacerations or abrasions. She denies any numbness or tingling. She denies any other injuries. She was able to remove her ring off of her finger prior to arrival. Tetanus Immunization: Unknown Prior similar symptoms: No Recent Illness/Hospitalization: No <Neo Bennett - Last Filed: 06/04/19 15:35> <Get Yi - Last Filed: 06/04/19 15:49> Chief Complaint: Upper Extremity Injury Past Medical History Prior records reviewed: Yes Surgical History: - - Right wrist fusion Lives: With Family Smoking Status: Never smoker <Neo Bennett - Last Filed: 06/04/19 15:35> <Get Yi - Last Filed: 06/04/19 15:49> - Allergies and Home Meds Allergies/Adverse Reactions: Allergies codeine Adverse Reaction (Severe, Verified 06/04/19 14:54) itchy, nausea Primary Care Physician: Nancy Lucas DO [Primary Care Provider] - Review of Systems All systems negative except as indicated General: Denies: Chills, Fever ENT: Denies: Rhinorrhea, Sore throat Cardiovascular: Denies: Chest pain, Palpitations Respiratory: Denies: Dyspnea, Cough Gastrointestinal: Denies: Abdominal pain, Nausea, Vomiting Musculoskeletal: Reports: Swelling, Extremity Pain. Denies: Myalgias, Arthralgias Skin: Denies: Rash, Abscess, Abrasions Neurological: Denies: Parasthesia, Numbness <Neo Bennett - Last Filed: 06/04/19 15:35> Physical Exam Vital Signs/Narrative: Vital Signs Temp Pulse Resp BP Pulse Ox 06/04/19 14:50 97.9 F 81 16 120/83 H 99 Left Hand: - - Patient has swelling and bruising over her left finger over the PIP joint. The skin is intact. She is able to actively flex and extend fully at the MCP, PIP and DIP joints. Nail is intact without injury. There is no other bony tenderness noted of her left hand. General: Well nourished, Well developed Head: Normocephalic, Atraumatic Eyes: Perrl, EOMI ENT: No Trauma, Moist Mucous Membranes Neck: Nontender Cardiovascular: Regular rate, Regular rhythm, No murmurs Respiratory: No distress, CTA bilaterally, Chest nontender Back: Nontender Skin: Normal color, No rash, Trauma Neurological: Alert, Oriented x3 Psychological: Normal affect <Neo Bennett - Last Filed: 06/04/19 15:35> Vital Signs/Narrative: Vital Signs Temp Pulse Resp BP Pulse Ox 06/04/19 14:50 97.9 F 81 16 120/83 H 99 <Get Yi - Last Filed: 06/04/19 15:49> Diagnostic/Tx/Re-eval X-ray left hand shows no acute bony abnormality - Medical Decision Making X-ray of the left hand shows no acute abnormality. Patient was reassured. Her ring has already been removed. Will place in an AlumaFoam finger splint for comfort. She was advised to rest ice and elevate and follow-up with her family doctor or return for worsening symptoms which we discussed. <Neo Bennett - Last Filed: 06/04/19 15:35> - Medical Decision Making Patient presents with left l finger injury with door closed on it, seen with Neo agree with history and exam as above on exam she has an discomfort to this finger but the range of motion is appropriate nailbeds intact the hand exam wrist exam is unremarkable at this time x-ray will be reviewed further management is dictated in the full chart see the full chart <Get Yi - Last Filed: 06/04/19 15:49> ED Disposition <Neo Bennett - Last Filed: 06/04/19 15:35> <Get Yi - Last Filed: 06/04/19 15:49> - Plan for ED Patient: Disposition: Home or Assisted Living Diagnosis: Contusion of ring finger without damage to nail Instructions: CRUSH INJURY, Hand/Finger Referrals: Nancy Lucas DO [Primary Care Provider] -
[2019-06-04 15:54] VITALS: RESP 17
== END 2019-06-04 15:54 | disposition home or self-care (01) ==
PROVIDERS: Emergency Provider Physician Assistant Medical; PCP Internal Medicine
DX: S60.042A Contusion of left ring finger without damage to nail, initial encounter (principal); W23.0XXA Caught, crushed, jammed, or pinched between moving objects, initial encounter; Y93.9 Activity, unspecified; Y92.9 Unspecified place or not applicable
CPT/HCPCS: 73140; 99283

== ENCOUNTER → 2019-06-06 15:43 | Outpatient (CLI) | payer BC, SELFPAY ==
[2019-06-04 14:50] VITALS: BMI 36.6
[2019-06-06 18:04] LABS: ALB/GLOB Ratio 1.1 RATIO (0.9-2.4); AST(SGOT) 53 U/L (15-37); Alanine Aminotransfer ALT/SGPT 73 U/L (13-56); Alkaline Phosphatase 93 U/L (45-117); Anion Gap 5 (5-15); BUN 10 mg/dL (7-18); BUN/Creat Ratio 13.4 RATIO (10-20); Calcium,Total 9.2 mg/dL (8.5-10.1); Chloride 105 mmol/L (98-107); Creatinine, Serum 0.74 mg/dL (0.55-1.02); EST Glomerular Filtration Rate 89 mL/min (>60); Est Glom Filt Rate - Afr Amer 108 mL/min (>60); Globulin 3.7 g/dL (2.2-4.2); Glucose 78 mg/dL (74-106); Potassium 3.6 mmol/L (3.5-5.1); Protein, Total 7.7 g/dL (6.4-8.2); Sodium Level 138 mmol/L (136-145)
== END ==
PROVIDERS: PCP Internal Medicine; Referring Provider Internal Medicine Rheumatology; Visit Provider Internal Medicine Rheumatology
DX: M06.09 Rheumatoid arthritis without rheumatoid factor, multiple sites (principal); Z79.899 Other long term (current) drug therapy; M79.7 Fibromyalgia; G47.33 Obstructive sleep apnea (adult) (pediatric); M21.40 Flat foot [pes planus] (acquired), unspecified foot; K21.0 Gastro-esophageal reflux disease with esophagitis
CPT/HCPCS: 36415; 80053

== ENCOUNTER → 2019-06-21 09:09 | Outpatient (CLI) | payer BC, SELFPAY ==
[2019-06-04 14:50] VITALS: BMI 36.6
--- NOTE | 2019-06-21 09:14 | US_ITS ---
STUDY: ABDOMINAL ULTRASOUND - RIGHT UPPER QUADRANT REASON FOR VISIT: Female, 43 years old ELEVATED LIVER ENZYMES TECHNIQUE: Ultrasound evaluation of the right upper quadrant was performed with real-time and static duffy-scale imaging. TECHNICAL QUALITY: Adequate. COMPARISON: None. FINDINGS: Liver: The liver measures 11.8 cm. There is increased echogenicity consistent with mild fatty infiltration. The bile ducts are within normal limits. There is hepatic color flow. The direction of portal flow is hepatopetal. There is no demonstrated mass lesion. Gallbladder: The patient is status post cholecystectomy. Common Bile Duct (C.B.D.): The common bile duct measures 3.0 mm. Pancreas: Normal size of the head, body and tail of the pancreas. There is normal echogenicity of the pancreas. There is no demonstrated pancreatic mass or cyst. Right Kidney: Normal size of the right kidney. The right kidney measures 10.5 cm x 4.8 cm x 4.8 cm. Normal renal cortex. The right cortex measures 1.6 cm. There is no demonstrated renal mass or cyst. There is no right hydronephrosis. US/Liver IMPRESSION: Mild degree of fatty infiltration of the liver. Status post cholecystectomy. Electronically Signed: Amarjit Patel, at 10:49 EST , Service support ,
== END ==
PROVIDERS: PCP Internal Medicine; Referring Provider Internal Medicine Rheumatology; Visit Provider Internal Medicine Rheumatology
DX: K21.0 Gastro-esophageal reflux disease with esophagitis (principal); M06.09 Rheumatoid arthritis without rheumatoid factor, multiple sites; Z79.899 Other long term (current) drug therapy; M79.7 Fibromyalgia; G47.33 Obstructive sleep apnea (adult) (pediatric); M21.40 Flat foot [pes planus] (acquired), unspecified foot
CPT/HCPCS: 76705

== ENCOUNTER 2020-01-27 17:00 | Emergency (ER) | payer BC, SELFPAY ==
[2020-01-27 17:01] VITALS: BP 154/85; PULSE 99; RESP 17; TEMP 37.6; O2SAT 98; BMI 42.4
[2020-01-27 17:43] VITALS: TEMP 37.1
--- NOTE | 2020-01-27 18:01 | ED.VIS.GEN ---
History of Present Illness Chief Complaint: Flank Pain Informant: Patient Narrative: Patient is a 44-year-old female who presents to the emergency department for left-sided flank pain and fever/chills. She was started on Cipro this past Thursday for a urinary tract infection which she was having dysuria and frequency since this past Thursday. She does have a history of UTIs before in the past. Her temperature at home has been up to 102. She currently rates the pain as a 4 out of 10. It is in the left flank. No radiation down into the abdomen. She has been mildly nauseous but denies any vomiting. No changes in bowel habits. No chest pain or shortness of breath. She denies any chance of being and has had a tubal ligation. She has had previous cholecystectomy as well as section and tubal ligation. She denies any blood in the stool. No cough, cold, congestion. No rashes. Past Medical History - Allergies and Home Meds Allergies/Adverse Reactions: Allergies codeine Adverse Reaction (Severe, Verified 01/27/20 17:00) itchy, nausea Primary Care Physician: Nancy Lucas DO [Primary Care Provider] - Prior records reviewed: Yes Surgical History: - - Right wrist fusion Smoking Status: Never smoker Review of Systems All systems negative except as indicated General: Reports: Chills, Fever. Denies: Sweats Eyes: Denies: Visual changes - bilaterally, Diplopia ENT: Denies: Rhinorrhea, Sore throat Cardiovascular: Denies: Chest pain, Palpitations Respiratory: Denies: Dyspnea, Cough, Dyspnea on exertion Gastrointestinal: Reports: Nausea. Denies: Abdominal pain, Vomiting, Diarrhea, Melena, Hematochezia Genitourinary: Reports: Dysuria, Frequency. Denies: Hematuria Musculoskeletal: Reports: Myalgias, Back pain. Denies: Extremity Pain Skin: Denies: Rash, Wounds Neurological: Denies: Headache, Weakness, Numbness Physical Exam Vital Signs/Narrative: Vital Signs Temp Pulse Resp BP Pulse Ox 01/27/20 17:43 98.7 F 01/27/20 17:01 99.6 F H 99 17 154/85 H 98 General: Well nourished, Well developed, No Acute Distress Head: Normocephalic, Atraumatic Eyes: Perrl, EOMI ENT: Moist mucous membranes, No rhinorrhea Neck: Supple, Nontender Cardiovascular: Regular rate, Regular rhythm, No murmurs Respiratory: No distress, CTA bilaterally, Chest nontender Abdomen: Soft, Nondistended, Normal bowel sounds, Tender - Diffuse, mild to deep palpation. Back: Nontender, Normal Inspection Extremities: Nontender, No edema Skin: Normal color, No rash Neurological: Alert, Oriented x3, Cranial nerves II-XII grossly intact, Normal Strength, Normal Sensation Psychological: Normal affect, Normal Mood Diagnostic/Tx/Re-eval - Medical Decision Making Patient presents the ED for left flank pain. She is currently being treated for urinary tract infection. She has been having systemic symptoms with nausea as well as fever/chills. Basic lab work, urinalysis, blood cultures and lactic acid being obtained. She has been on ciprofloxacin. Will start on IV fluids as she is borderline tachycardic. Patient's work-up showed a mildly elevated white blood cell count. Urine shows possibility of infection but she has been on Cipro which should be treating this. CT scan did not show any evidence of obstructing stone or pyelonephritis. She otherwise has been stable throughout ED stay. Lactic within normal limits. I did offer hospitalization given the fact she does meet sepsis criteria. But patient is otherwise well-appearing and she does feel comfortable going home for outpatient treatment still. Will change antibiotic to Keflex and cultures have been obtained. We will contact her if blood cultures or urine culture comes back positive. Strict return precautions were discussed with her. She otherwise is to follow-up with her PCP. Will discharge home in stable condition at this time. ED Disposition - Plan for ED Patient: Disposition: Home or Assisted Living Diagnosis: Cystitis, Fever Instructions: ED Fever Control (Adult), ED CYSTITIS Female Adult Prescriptions: Cephalexin [Keflex] 500 mg PO BID 10 Days #20 cap Transmission Status: Received by [facility] #[id number] Phenazopyridine [Pyridium] 100 mg PO TID PRN 4 Days #12 tab PRN Reason: Not Specified Transmission Status: Received by [facility] #[id number] Referrals: Nancy Lucas DO [Primary Care Provider] -
[2020-01-27 18:03] VITALS: BP 98/74; PULSE 80; RESP 18; TEMP 37.2; O2SAT 96
[2020-01-27 18:04] LABS: Mucous, Urine 0 SEEN /hpf (<or=2+); Red Blood Cells-Urine 0 SEEN /hpf (0-5)
[2020-01-27 18:07] LABS: Color, Urine Yellow (Yellow); Glucose, Dipstick Normal (Normal); Ketone-Dipstick 5 mg/dl (Negative); Leukocyte Esterase-Dipstick 100 /ul (Negative); Nitrite-Dipstick Negative (Negative); Occult Blood-Urine 50 /ul (Negative); Protein-Dipstick 30 mg/dl (Negative); Specific Gravity, Urine 1.015 (1.002-1.030); Urine Clarity Cloudy (Clear); Urine Urobilinogen 4 mg/dl (Normal)
[2020-01-27 18:11] LABS: Absolute Lymphocyte Count 1.23 X10^3/uL (0.83-4.51); Basophil# 0.05 X10^3/uL; Basophil% 0.3 % (0-1); Eosinophil# 0.18 X10^3/uL; Eosinophils% 1.2 % (0-5); Hematocrit 35.8 % (37-47); Hemoglobin 11.3 g/dL (12.0-15.0); Lymphocyte # 1.23 X10^3/ul (4.0); Mean Corp Hgb Conc 31.6 g/dL (32-36); Mean Corpuscular Hgb 26.3 pg (27.0-32.0); Mean Corpuscular Volume 83.4 fL (81-99); Mean Platelet Vol. 10.5 fl (6.2-12.0); Monocyte% 12.3 % (0-10); NRBC Flagged by Analyzer 0 % (0-5); Neutrophil % 77.6 % (47-70); POSITIVE COUNT YES; POSITIVE DIFFERENTIAL YES; Platelet Count 312 K/mm3 (150-450); RBC Distribution Width CV 18.4 % (11.6-14.6); RBC Distribution Width SD 54.5 fl (35.1-43.9); Red Blood Count 4.29 M/mm3 (4.2-5.4); White Blood Count 15.5 K/mm3 (4.4-11.0)
[2020-01-27] MEDS: 0.9% Normal Saline 1,000 ML 999 ML IV (18:11)
[2020-01-27 18:21] LABS: Differential Indicated SCAN CRITERIA MET
[2020-01-27 18:26] LABS: ALB/GLOB Ratio 0.9 RATIO (0.9-2.4); AST(SGOT) 49 U/L (15-37); Alanine Aminotransfer ALT/SGPT 31 U/L (13-56); Albumin, Serum 3.5 g/dL (3.2-5.0); Alkaline Phosphatase 121 U/L (45-117); Anion Gap 8 (5-15); BUN 13 mg/dL (7-18); BUN/Creat Ratio 18.5 RATIO (10-20); Calcium,Total 8.6 mg/dL (8.5-10.1); Chloride 106 mmol/L (98-107); EST Glomerular Filtration Rate 95 mL/min (>60); Est Glom Filt Rate - Afr Amer 115 mL/min (>60); Estimated Creatinine Clearance 79.42 ml/min; Glucose 92 mg/dL (74-106); Protein, Total 7.5 g/dL (6.4-8.2); Sodium Level 138 mmol/L (136-145)
[2020-01-27 18:31] LABS: Lactic Acid 0.9 mmol/L (0.4-1.9)
[2020-01-27 18:32] VITALS: BP 101/69; PULSE 83; RESP 18; TEMP 37.2; O2SAT 98
[2020-01-27 18:52] LABS: Urine Bilirubin Dipstick 1 mg/dL (Negative)
[2020-01-27 18:54] LABS: Anisocytosis RARE; Platelet Estimate ADEQUATE (ADEQ); Red Cell Morphology N CHROM NORMAL (NORM C&C)
[2020-01-27 19:00] VITALS: BP 111/78; PULSE 82; RESP 19; TEMP 37.3; O2SAT 98
[2020-01-27 19:10] LABS: Bacteria RARE /hpf (None Seen); Squamous Epithelial Cells - UA 5-10 SEEN /hpf (5-10); White Blood Cells 5-10 SEEN /hpf (0-5)
--- NOTE | 2020-01-27 19:12 | CT_ITS ---
STUDY: CT ABDOMEN AND PELVIS WITH CONTRAST REASON FOR EXAM: Female, 44 years old. LEFT FLANK PAIN. UTI ON ATB. NAUSEA, FEVER, CHILLS, WBC RADIATION DOSAGE (If Supplied By Facility): CTDIvol = ( 18.68 ) mGy, DLP = ( 2279.62 ) mGycm TECHNIQUE: Transaxial images were obtained from the dome of the diaphragm to the symphysis pubis without oral contrast. IV 100mL Isovue-300 was administered. Sagittal and coronal images were reconstructed. Individualized dose optimization techniques were used for this CT. COMPARISON: None. FINDINGS: The visualized lung bases are unremarkable. The visualized portions of the heart are within normal limits. Normal liver. There are surgical clips in the gallbladder fossa consistent with a prior cholecystectomy. Normal spleen. Normal pancreas. Normal bilateral adrenal glands. Normal right kidney. Normal left kidney. There is a small hiatal hernia. Normal small intestine. Normal colon. The appendix is visualized and appears normal. Normal abdominal aorta. Normal inferior vena cava. Normal retroperitoneum. Normal urinary bladder. There is a tiny fat-containing umbilical hernia. Normal osseous structures. CT/Abdomen/Pelvis W IV Cont ONLY IMPRESSION: 1. Status post cholecystectomy. 2. Small hiatal hernia. 3. Tiny fat-containing umbilical hernia. 4. There is no evidence of nephro or ureterolithiasis, hydronephrosis, or hydroureter. Electronically Signed: Ethan Richard MD at 20:07 EDT , Service support ,
[2020-01-27 20:27] VITALS: BP 106/61; PULSE 87; RESP 24; TEMP 37; O2SAT 100
[2020-01-30 14:11] LABS: Pathologist Review Reviewed
== END 2020-01-27 21:51 | disposition home or self-care (01) ==
PROVIDERS: Emergency Provider Emergency Medicine; PCP Internal Medicine
DX: N30.90 Cystitis, unspecified without hematuria (principal); Z87.440 Personal history of urinary (tract) infections; Z90.49 Acquired absence of other specified parts of digestive tract
CPT/HCPCS: 74177; 80053; 81001; 83605; 85025; 87040; 87086; 87088; 96361; 96365; 99284; J7030; J7050; Q9967; A4216; J0696

== ENCOUNTER → 2020-02-20 13:32 | Outpatient (CLI) | payer BC, SELFPAY ==
[2020-01-27 17:01] VITALS: BMI 42.4
--- NOTE | 2020-02-20 13:45 | RAD_ITS ---
HISTORY: low back pain, left hip/leg pain COMPARISON: None FINDINGS: # of images incl. paperwork: 2 XR Spine Lumbar 2 or 3 Views: Cholecystectomy clips. Small ribs on likely what is the 13th thoracic vertebral body, with only 4 [id number] lumbar vertebral bodies. Lumbar vertebral bodies are normal in height. Lumbar disc spaces are well maintained. No acute lumbar spine fracture or subluxation. No significant degenerative change. RAD/Lumbar Spine 2 or 3 Views IMPRESSION: No acute lumbar spine fracture or subluxation. at 0601 Reported and signed by: Rasta Arroyo MD Electronically Signed: Rasta Arroyo MD at 6:00 EDT Tel , Service support ,
== END ==
PROVIDERS: PCP Internal Medicine; Referring Provider Anesthesiology Pain Medicine; Visit Provider Anesthesiology Pain Medicine
DX: M54.9 Dorsalgia, unspecified (principal); M79.606 Pain in leg, unspecified
CPT/HCPCS: 72100

== ENCOUNTER 2020-03-12 13:12 | Inpatient (IN) | payer BC, MEDICARE, SELFPAY ==
[2020-03-12 13:13] VITALS: BP 152/110; PULSE 86; RESP 22; TEMP 36.6; O2SAT 89; BMI 42.8
--- NOTE | 2020-03-12 14:00 | EKG12_ITS ---
Test Reason : GEN ILLNESS Blood Pressure : / mmHG Vent. Rate : 075 BPM Atrial Rate : 075 BPM P-R Int : 138 ms QRS Dur : 094 ms QT Int : 378 ms P-R-T Axes : 015 029 017 degrees QTc Int : 422 ms Normal sinus rhythm Low voltage QRS Borderline ECG Confirmed by JUSTIN DURAND, DELTA ([id number]), video editor CARLOS MARY ([id number]) on 03/14/2020 8:46:33 AM Referred By: DEBORAH Confirmed By:DELTA ANDERSON MD
[2020-03-12 14:12] LABS: Absolute Lymphocyte Count 0.89 X10^3/uL (0.83-4.51); Absolute Neutrophil Count 3.4 X10^3/uL (2.0-7.7); Basophil# 0.01 X10^3/uL; Basophil% 0.2 % (0-1); Eosinophil# 0.02 X10^3/uL; Eosinophils% 0.4 % (0-5); Hematocrit 35.5 % (37-47); Lymphocyte # 0.89 X10^3/ul (4.0); Mean Corpuscular Volume 83.9 fL (81-99); Mean Platelet Vol. 9.6 fl (6.2-12.0); Monocyte# 0.83 X10^3/uL; Monocyte% 15.9 % (0-10); NRBC Flagged by Analyzer 0 % (0-5); Neutrophil # 3.44 X10^3/uL (2.7-7.7); Neutrophil % 65.7 % (47-70); POSITIVE MORPHOLOGY YES; Platelet Count 425 K/mm3 (150-450); RBC Distribution Width CV 19.1 % (11.6-14.6); RBC Distribution Width SD 58.6 fl (35.1-43.9); Red Blood Count 4.23 M/mm3 (4.2-5.4); White Blood Count 5.2 K/mm3 (4.4-11.0)
[2020-03-12 14:13] LABS: Differential Indicated SCAN CRITERIA MET
--- NOTE | 2020-03-12 14:15 | RAD_ITS ---
STUDY: X-RAY CHEST REASON FOR EXAM: Female, 44 years old. INCREASED SOB. TESTED POSITIVE FOR COVID LAST THURSDAY TECHNIQUE: Single AP portable view of the chest. COMPARISON: Comparison is made with prior study dated 08/10/2017. FINDINGS: EKG electrodes are seen. There is evidence of diffuse bilateral pulmonary infiltrates in keeping with bilateral pneumonias. There is no demonstrated pleural abnormality. Normal size heart. Normal mediastinum and nayeli. Normal visualized pulmonary arteries. Normal visualized aortic arch and descending thoracic aorta. Normal visualized thoracic spine. Normal visualized ribs, clavicles, and shoulders. There is no demonstrated abnormality of the visualized soft tissue structures of the upper abdomen. RAD/Chest 1 View (Portable) IMPRESSION: Diffuse bilateral pulmonary infiltrates. Follow-up is recommended. Electronically Signed: Amarjit Patel, at 14:29 EST , Service support ,
[2020-03-12 14:31] LABS: ALB/GLOB Ratio 0.7 RATIO (0.9-2.4); AST(SGOT) 96 U/L (15-37); Alanine Aminotransfer ALT/SGPT 73 U/L (13-56); Albumin, Serum 2.8 g/dL (3.2-5.0); Alkaline Phosphatase 130 U/L (45-117); Anion Gap 6 (5-15); BUN 4 mg/dL (7-18); BUN/Creat Ratio 6.8 RATIO (10-20); Calcium,Total 7.9 mg/dL (8.5-10.1); Chloride 109 mmol/L (98-107); Creatinine, Serum 0.59 mg/dL (0.55-1.02); EST Glomerular Filtration Rate 116 mL/min (>60); Est Glom Filt Rate - Afr Amer 140 mL/min (>60); Estimated Creatinine Clearance 94.23 ml/min; Globulin 3.9 g/dL (2.2-4.2); Glucose 85 mg/dL (74-106); Potassium 3.2 mmol/L (3.5-5.1); Protein, Total 6.7 g/dL (6.4-8.2); Sodium Level 144 mmol/L (136-145)
[2020-03-12 14:37] LABS: Lactic Acid 0.9 mmol/L (0.4-1.9)
--- NOTE | 2020-03-12 14:37 | ED.VIS.GEN ---
History of Present Illness Chief Complaint: Shortness of Breath Informant: Patient Narrative: Patient is a 44-year-old female who presents to the emergency department for shortness of breath. She was diagnosed with Covid at the end of last month. She states that her breathing has been progressively getting worse. She feels short of breath at rest. She has headaches, chest pain with coughing, abdominal pain and nausea. She has been treating herself at home with Tylenol. She otherwise has not received any prescription medications. Exerting herself makes things worse. She denies a smoking history. No leg swelling or calf pain. She does have a history of RA but is on no immunomodulator's. Past Medical History - Allergies and Home Meds Allergies/Adverse Reactions: Allergies codeine Adverse Reaction (Severe, Verified 03/12/20 13:44) itchy, nausea Prior records reviewed: Yes Past Medical History: - - RA, fibromyalgia Surgical History: - - Right wrist fusion Smoking Status: Former smoker - Family History Maternal Family History: Reports: - - Denies maternal medical history including cardiac history. Paternal Family History: Reports: - - Denies paternal medical history including cardiac history. Review of Systems All systems negative except as indicated General: Reports: Fever. Denies: Chills, Sweats Eyes: Denies: Visual changes - bilaterally, Diplopia ENT: Denies: Rhinorrhea, Sore throat Cardiovascular: Reports: Chest pain - Chest wall. Denies: Palpitations Respiratory: Reports: Dyspnea, Cough, Dyspnea on exertion. Denies: Sputum Gastrointestinal: Reports: Abdominal pain, Nausea. Denies: Vomiting, Diarrhea Genitourinary: Denies: Dysuria, Hematuria, Frequency Musculoskeletal: Denies: Back pain, Extremity Pain Skin: Denies: Rash, Wounds Neurological: Reports: Headache. Denies: Weakness, Numbness Physical Exam Vital Signs/Narrative: Vital Signs Temp Pulse Resp BP Pulse Ox 03/12/20 13:13 97.9 F 86 22 H 152/110 H 89 Inital Vital Signs reviewed: Yes General: Well nourished, Well developed, No Acute Distress, - - Patient appears ill but nontoxic Head: Normocephalic, Atraumatic Eyes: Perrl, EOMI ENT: No rhinorrhea Neck: Supple, Nontender Cardiovascular: Regular rate, Regular rhythm, No murmurs Respiratory: No distress, CTA bilaterally, Chest tenderness, - - Mildly tachypneic Abdomen: Soft, Nontender, Nondistended, Normal bowel sounds Back: Nontender, Normal Inspection Extremities: Nontender, No edema. Negative for: Calf Tenderness Skin: Normal color, No rash Neurological: Alert, Oriented x3, Normal Strength, Normal Sensation Psychological: Normal affect, Normal Mood Diagnostic/Tx/Re-eval - EKG Initial EKG Interpretation: - - Rate of 75 bpm and normal sinus rhythm. Normal intervals. Normal axis. No ST elevations or depressions appreciated. No T wave abnormalities. - Medical Decision Making Patient presents to the emergency department for dyspnea. She is Covid positive. She is satting 89% on room air when she arrived. She started on supplemental oxygen. Will check x-ray, EKG, basic lab work. We will give a dose of Decadron. X-ray showed bilateral patchy infiltrates consistent with coronavirus. Since started on supplemental oxygen she has been stable throughout ED stay. Will bring her into the hospital for further evaluation and management. She understands and is agreeable with this plan. ED Disposition - Plan for ED Patient: Disposition: Acute Care Hospital [facility] Diagnosis: Pneumonia due to COVID-19 virus, Hypoxia
[2020-03-12] MEDS: dexAMETHasone 10 MG/ML Vial IV (15:09)
--- NOTE | 2020-03-12 15:51 | HP.PCM_ITS ---
Problem List (1) COVID-19 Status: Acute (2) Rheumatoid arthritis Status: Chronic History of Present Illness Date of Admission: 03/12/20 Chief Complaint: Shortness of breath, cough, fever. The patient is a 44 year old F who presents emergency room due to shortness of breath, cough, fever. Patient states she tested positive for Covid 03/05/2020. She states her symptoms initially began 02/28/2020. She reports her breathing has recently worsened and states that her lips were blue. She has a past medical history of rheumatoid arthritis. She is not on immunosuppressants. She reports intermittent nausea without emesis. Denies diarrhea. Denies other associated symptoms or complaints. She has been taking Tylenol at home for fever. Past Medical History Past Medical History (Chronic Problems): Chronic Problems Rheumatoid arthritis (Chronic) Allergies codeine Adverse Reaction (Severe, Verified 03/12/20 13:44) itchy, nausea Home Medications: Ambulatory Orders Medication Instructions Recorded omeprazole 40 mg capsule,delayed 40 mg PO QHS #90 cap 03/17/19 release Fexofenadine HCl [Mayela Allergy] 180 mg PO DAILY 03/12/20 Multivitamin with Minerals 1 ea PO DAILY 03/12/20 [Multiple Vitamin] Triamcinolone Acetonide [Nasacort 1 spray NASAL DAILY 03/12/20 Aq Nasal [place]] Surgical History: - - Right wrist fusion, hysterectomy, cholecystectomy, basal cell resection. 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 Paternal History Items: - - Denies paternal medical history including cardiac history. Review of Systems Constitutional: Reports: Chills, Fever, Malaise HEENT: Denies: Head Aches, Sinus Congestion, Sinus Drainage Cardiovascular: Denies: Chest Pain, Palpitations Respiratory: Reports: Cough, Shortness of Breath, Sputum production Gastrointestinal: Reports: Nausea. Denies: Abdominal Pain, Diarrhea, Vomiting Genitourinary: Denies: Dysuria Musculoskeletal: Denies: Joint Pain, Joint Tenderness Skin: Denies: Rash, Wounds Neurological: Denies: Numbness, Tingling, Focal weakness Psychiatric: Denies: Anxiety, Depression, Homicidal Ideations, Suicidal Ideations Hematologic/ Lymphatic: Denies: Easy Bruising, Easy Bleeding VTE Information - Inpt Only VTE Present on Admission: No VTE Mechan Device Prophylaxis: None VTE Pharm Prophylaxis ordered?: Yes Patient Problems: Active and Suspected Problems COVID-19 (Acute) - Physical Exam Vitals/I&O's: Vital Signs Temp Pulse Resp BP Pulse Ox 97.9 F 86 22 H 152/110 H 89 03/12/20 13:13 03/12/20 13:13 03/12/20 13:13 03/12/20 13:13 03/12/20 13:13 Oxygen Delivery Method Room Air Weight: 234 lb 5.622 oz Body Mass Index (BMI) 42.8 General: Alert, Oriented x3, Cooperative HEENT: Atraumatic, PERRLA, EOMI, Normocephalic Oral: Dry Mucosa Neck: Supple, No JVD, Negative Carotid Bruits Lungs: Diminished, - - Scattered faint crackles Cardiovascular: Regular rate, No murmurs Abdomen: Bowel Sounds Present, Soft, Non Tender, Non-Distended Extremities: No clubbing, No cyanosis, No edema, Capillary Refill Less than 3 Seconds Skin: No rashes, No breakdown Musculoskeletal: No Tenderness to Palpation of Joints or Extremities Neurological: Cranial nerves II-XII grossly intact, Neuro grossly intact Psych/Mental Status: Normal Affect, Appropriate Laboratory Results 03/12/20 13:40: WBC 5.2, RBC 4.23, Hgb 11.0 L, Hct 35.5 L, MCV 83.9, MCH 26.0 L, MCHC 31.0 L, RDW Std Deviation 58.6 H, RDW Coeff of Constanza 19.1 H, Plt Count 425, MPV 9.6, Immature Gran % (Auto) 0.800, Neut % (Auto) 65.7, Lymph % (Auto) 17.0 L , Edgar % (Auto) 15.9 H, Eos % (Auto) 0.4, Baso % (Auto) 0.2, Absolute Neuts (auto) 3.4, Absolute Lymphs (auto) 0.89, Nucleated RBC % 0 03/12/20 13:40: Sodium 144, Potassium 3.2 L, Chloride 109 H, Carbon Dioxide 29.0, Anion Gap 6, BUN 4 L, Creatinine 0.59, Estim Creat Clear Calc 94.23, Est GFR (MDRD) Af Amer 140, Est GFR (MDRD) Non-Af 116, BUN/Creatinine Ratio 6.8 L, Glucose 85, Calcium 7.9 L, Total Bilirubin 0.30, AST 96 H, ALT 73 H, Alkaline Phosphatase 130 H, Troponin I < 0.015, Total Protein 6.7, Albumin 2.8 L, Globulin 3.9, Albumin/Globulin Ratio 0.7 L 03/12/20 13:40: Lactic Acid 0.9 Assessment/Plan All Active Problems COVID-19 (Acute) 1. Acute hypoxic respiratory insufficiency secondary to COVID-19 pneumonia-IV Decadron. Albuterol aerosol. ID consult. Continue supplement oxygen to maintain O2 at above 90%. 2. Rheumatoid arthritis-not on immunosuppressants. 3. Obesity-encouraged diet and lifestyle modifications. DVT prophylaxis-Lovenox This patient was seen by NOLA Cota under the supervision of Dr. Ruano.
[2020-03-12 16:07] VITALS: BMI 42.9
[2020-03-12 16:20] VITALS: BP 136/94; PULSE 70; RESP 24; TEMP 37.2; O2SAT 99
[2020-03-12 17:05] VITALS: BMI 43.0
[2020-03-12 17:15] VITALS: BP 108/77; PULSE 72; RESP 18; TEMP 36.9; O2SAT 95
[2020-03-12] MEDS: 0.9% Normal Saline 1,000 ML 100 ML IV (17:40)
[2020-03-12] MEDS: 0.9% Saline Lock 10 ML Syringe IV (17:40)
[2020-03-12 17:49] LABS: D-Dimer Quantitative (DVT/PE) 1.15 FEU/ug/m (0.27-0.49)
[2020-03-12] MEDS: Enoxaparin 100 MG/ML Syringe SC (19:40)
[2020-03-13] VITALS (9 sets, daily range): BP systolic 93–125; BP diastolic 61–79; PULSE 58–70; RESP 18–20; TEMP 36.7–37; O2SAT 93–96
[2020-03-13] MEDS: 0.9% Normal Saline 1,000 ML 100 ML IV ×2 (04:43→23:25)
[2020-03-13 06:44] LABS: Absolute Lymphocyte Count 0.62 X10^3/uL (0.83-4.51); Absolute Neutrophil Count 2.1 X10^3/uL (2.0-7.7); Basophil# 0.02 X10^3/uL; Basophil% 0.6 % (0-1); Eosinophil# 0.07 X10^3/uL; Eosinophils% 2.2 % (0-5); Hematocrit 35.5 % (37-47); Hemoglobin 10.4 g/dL (12.0-15.0); Lymphocyte # 0.62 X10^3/ul (4.0); Lymphocyte % 19.1 % (19-41); Mean Corp Hgb Conc 29.3 g/dL (32-36); Mean Corpuscular Hgb 26.8 pg (27.0-32.0); Mean Corpuscular Volume 91.5 fL (81-99); Mean Platelet Vol. 9.9 fl (6.2-12.0); Monocyte# 0.39 X10^3/uL; NRBC Flagged by Analyzer 0 % (0-5); Neutrophil # 2.12 X10^3/uL (2.7-7.7); Neutrophil % 65.2 % (47-70); POSITIVE MORPHOLOGY YES; Platelet Count 346 K/mm3 (150-450); RBC Distribution Width CV 19.5 % (11.6-14.6); RBC Distribution Width SD 64.8 fl (35.1-43.9); Red Blood Count 3.88 M/mm3 (4.2-5.4); White Blood Count 3.3 K/mm3 (4.4-11.0)
[2020-03-13 07:07] LABS: Differential Indicated SCAN CRITERIA MET
[2020-03-13 07:09] LABS: Atypical Lymphocyte RARE %; Differential Comment SCANNED
[2020-03-13 07:14] LABS: ALB/GLOB Ratio 0.7 RATIO (0.9-2.4); AST(SGOT) 71 U/L (15-37); Alanine Aminotransfer ALT/SGPT 60 U/L (13-56); Albumin, Serum 2.5 g/dL (3.2-5.0); Alkaline Phosphatase 121 U/L (45-117); Anion Gap 6 (5-15); BUN 7 mg/dL (7-18); BUN/Creat Ratio 13.1 RATIO (10-20); Calcium,Total 7.6 mg/dL (8.5-10.1); Chloride 111 mmol/L (98-107); Creatinine, Serum 0.53 mg/dL (0.55-1.02); EST Glomerular Filtration Rate 131 mL/min (>60); Est Glom Filt Rate - Afr Amer 158 mL/min (>60); Globulin 3.8 g/dL (2.2-4.2); Glucose 122 mg/dL (74-106); Potassium 3.4 mmol/L (3.5-5.1); Protein, Total 6.3 g/dL (6.4-8.2); Sodium Level 139 mmol/L (136-145)
--- NOTE | 2020-03-13 07:23 | PCM.PN.HOSP ---
Patient Problems: Active and Suspected Problems COVID-19 (Acute) Pneumonia due to COVID-19 virus (Acute) Hypoxia (Acute) Subjective: Patient no acute events overnight aside from complaint of ongoing fatigue, malaise, lessened dyspnea but still ongoing occasional cough and some nausea but able to tolerate oral intake notes significantly improved since initial ED presentation. Patient currently maintained on IV Decadron with pending midline placement to obtain CTPA as patient had elevated D-dimer. Infectious disease consulted and following and noted that given symptoms started on 02/27 would likely not benefit from any remdesivir or plasma. Patient denies fevers, chills, emesis, abdominal pain, chest pain. Objective: Physical Examination: General: awake, alert, oriented x 3 and cooperative, seated upright in the medical surgical Covid bed in no apparent distress. Skin: normal color, turgor, no icterus, cyanosis. HEENT: AT/NC, EOMI, PERRLA, mildly dry MM. Lungs: Diminished breath sounds, greater bases, no rales, ronchi or wheezing. Heart: Regular rate and rhythm; no gallop, rub audible. Abdomen: soft, morbidly obese, NTTP, ND, mildly hyperactive bowel sounds. Extremities: no cyanosis, clubbing, or edema. Neurological: patient awake, alert, oriented as noted; cognitive function appears baseline intact; pupils equally reactive to light and accomodation; cranial nerves II-XII grossly normal, moving all 4 extremities, no focal deficits, strength moderately to severely global decrease secondary to acute presentation. Psychiatric: affect appears fatigued otherwise normal, no acute evidence of depressive or anxiety feelings. Vitals/I&O's: Vital Signs Temp Pulse Resp BP Pulse Ox 98.3 F 61 18 102/71 94 03/13/20 04:45 03/13/20 04:45 03/13/20 04:45 03/13/20 04:45 03/13/20 04:45 Oxygen Flow Rate (L/min) 2 Oxygen Delivery Method Nasal Cannula Weight: 235 lb 0.204 oz Body Mass Index (BMI) 43.0 Intake and Output for Last 24 Hours 03/11/20 03/12/20 03/13/20 23:59 23:59 23:59 Intake Total 1000 / 1000 Balance 1000 / 1000 Laboratory Results 03/12/20 13:40: WBC 5.2, RBC 4.23, Hgb 11.0 L, Hct 35.5 L, MCV 83.9, MCH 26.0 L, MCHC 31.0 L, RDW Std Deviation 58.6 H, RDW Coeff of Constanza 19.1 H, Plt Count 425, MPV 9.6, Immature Gran % (Auto) 0.800, Neut % (Auto) 65.7, Lymph % (Auto) 17.0 L, [place] % (Auto) 15.9 H, Eos % (Auto) 0.4, Baso % (Auto) 0.2, Absolute Neuts (auto) 3.4, Absolute Lymphs (auto) 0.89, Nucleated RBC % 0 03/12/20 13:40: Sodium 144, Potassium 3.2 L, Chloride 109 H, Carbon Dioxide 29.0, Anion Gap 6, BUN 4 L, Creatinine 0.59, Estim Creat Clear Calc 94.23, Est GFR (MDRD) Af Amer 140, Est GFR (MDRD) Non-Af 116, BUN/Creatinine Ratio 6.8 L, Glucose 85, Calcium 7.9 L, Total Bilirubin 0.30, AST 96 H, ALT 73 H, Alkaline Phosphatase 130 H, Troponin I < 0.015, Total Protein 6.7, Albumin 2.8 L, Globulin 3.9, Albumin/Globulin Ratio 0.7 L 03/12/20 13:40: Lactic Acid 0.9 03/12/20 13:40: D-Dimer Quant (PE/DVT) 1.15 H* 03/13/20 06:22: WBC 3.3 L, RBC 3.88 L, Hgb 10.4 L, Hct 35.5 L, MCV 91.5 D, MCH 26.8 L, MCHC 29.3 L D, RDW Std Deviation 64.8 H, RDW Coeff of Constanza 19.5 H, Plt Count 346, MPV 9.9, Immature Gran % (Auto) 0.900, Neut % (Auto) 65.2, Lymph % (Auto) 19.1, [place] % (Auto) 12.0 H, Eos % (Auto) 2.2, Baso % (Auto) 0.6, Absolute Neuts (auto) 2.1, Absolute Lymphs (auto) 0.62 L, Nucleated RBC % 0, Differential Comment SCANNED, Atypical Lymphocytes RARE 03/13/20 06:22: Sodium 139, Potassium 3.4 L, Chloride 111 H, Carbon Dioxide 22.0, Anion Gap 6, BUN 7, Creatinine 0.53 L, Estim Creat Clear Calc 104.90, Est GFR (MDRD) Af Amer 158, Est GFR (MDRD) Non-Af 131, BUN/Creatinine Ratio 13.1, Glucose 122 H, Calcium 7.6 L, Total Bilirubin 0.30, AST 71 H, ALT 60 H, Alkaline Phosphatase 121 H, Total Protein 6.3 L, Albumin 2.5 L, Globulin 3.8, Albumin/Globulin Ratio 0.7 L Current Medications Acetaminophen (Acetaminophen 325 Mg Tablet) 650 mg PO Q6H PRN PRN PRN Reason: Pain Score 1-10/Temp > 100.7 F Albuterol Sulfate (Albuterol Sulfate Hfa 6.7 Gm Inhaler (200 Puffs)) 2 puff IH Q4H PRN PRN Reason: SHORTNESS OF BREATH Dexamethasone Sodium Phosphate (Dexamethasone 10 Mg/Ml Vial) 6 mg IV DAILY [facility] Enoxaparin Sodium (Enoxaparin 100 Mg/Ml Syringe) 100 mg SC Q12 [facility] Fluticasone Propionate (Fluticasone 0.05% 1 [place] Nasal.Sry) 1 spray NASAL DAILY [facility] Sodium Chloride () 1,000 mls @ 100 mls/hr IV .Q10H NIEVES Last Admin: 03/13/20 04:43 Dose: 100 mls/hr Documented by: Loratadine (Loratadine 10 Mg Tablet) 10 mg PO DAILY NIEVES Multivitamins/Minerals (Multivitamins,Ther W-Minerals Tablet) 1 tablet PO DAILY@0800 [facility] Ondansetron HCl (Ondansetron 4 Mg/2 Ml Vial) 4 mg IV Q8H PRN PRN PRN Reason: NAUSEA/VOMITING Pantoprazole Sodium (Pantoprazole Sodium 40 Mg Tablet) 40 mg PO QHS [facility] Potassium Chloride (Potassium Chloride 20 Meq Tablet) 40 meq PO X1 ONE Stop: 03/13/20 07:23 Sodium Chloride (0.9% Saline Lock 10 Ml Syringe) 10 - 40 ml IV UD PRN PRN Reason: SALINE FLUSH Last Admin: 03/12/20 17:40 Dose: 10 ml Documented by: STROKE Vital Signs/Narrative: Vital Signs Temp Pulse Resp BP Pulse Ox 03/13/20 04:45 98.3 F 61 18 102/71 94 Medical Necessity - Tobacco Use Smoking Status: Former smoker Tobacco Use: Cigarettes Assessment/Plan All Active Problems COVID-19 (Acute) Pneumonia due to COVID-19 virus (Acute) Hypoxia (Acute) The patient is a 44 y/o F w/ PMHx: Morbid Obesity, Rheumatoid arthritis, GERD, Allergic Rhinitis who presents to the [facility] ED on 03/13/20 with history of progressively worsening dyspnea with cough as well as fever with symptoms initially beginning on 02/28/2020, worsening with now onset of nausea without emesis additionally. 1. Acute Hypoxia, Dyspnea, Cough, Fever with Bilateral Pneumonia secondary to Acute Viral Syndrome, COVID-19: Admitted to medical surgical Covid unit, initiated on IV dexamethasone with plan 10-day course, infectious disease consulted and following with transition to oral regimen given clinical improvement, given 02/28/2020 onset of symptoms patient is not a candidate per his you for remdesivir or convalescent plasma, D-dimer 1.15 upon presentation, awaiting midline placement for CTPA, continued therapeutic Lovenox in interim, continue supportive care including q 2 hour turning including prone given no prone bed availability and judicious hydration. 2. Normocytic anemia: Admission hemoglobin 11, repeat 03/13/2020 10.4, appears chronic with 01/27/2020 level noted 11.3, encourage continued outpatient follow-up and work-up. 3. Allergic rhinitis: We will continue fluticasone as well as Claritin regimen while inpatient. 4. Morbid Obesity: Weight loss and lifestyle changes encouraged, nutrition consulted. 5. Rheumatoid arthritis: Not on regimen, encourage continued outpatient follow-up. 6. GERD: We will continue patient home PPI. 7. Code Status: Full Code. Inpatient E&M: 42251 Subs Hosp L2
[2020-03-13] MEDS: Fluticasone 0.05% 1 SPRAY NASAL.SRY NASAL (08:26)
[2020-03-13] MEDS: 0.9% Saline Lock 10 ML Syringe IV ×2 (08:27→23:25)
[2020-03-13] MEDS: Multivitamins,Ther W-Minerals Tablet 1 TABLET PO (08:27)
[2020-03-13] MEDS: Loratadine 10 MG Tablet PO (08:27)
[2020-03-13] MEDS: Enoxaparin 100 MG/ML Syringe SC ×2 (08:28→21:59)
[2020-03-13] MEDS: dexAMETHasone 10 MG/ML Vial 6 MG IV (08:28)
--- NOTE | 2020-03-13 10:45 | NURSING ---
patient access representative phoned in- states will be here between 7p-8p to place midline.
--- NOTE | 2020-03-13 11:11 | CON.PCM_ITS ---
Problem List (1) COVID-19 Status: Acute Reason for Consult: covid Consulted by: Dr. Cherry History of Present Illness: The patient is a 44 year old F with RA, not on immunosuppressants, presented last night with covid. Sx started 02/27 with some progressive aches, cough, dyspnea, headache, some change in taste/smell. Had worsening dyspnea, came to ED. Other symptoms improved/resolved for the most part. Feeling better this AM on dex and O2. Thinks she got it from her who is recovering. Full ROS performed and neg except as noted above. - Medical History Past Medical History (Chronic Problems): Chronic Problems Rheumatoid arthritis (Chronic) Allergies/Adverse Reactions: Allergies codeine Adverse Reaction (Severe, Verified 03/12/20 13:44) itchy, nausea Home Medications: Ambulatory Orders Medication Instructions Recorded omeprazole 40 mg capsule,delayed 40 mg PO QHS #90 cap 03/17/19 release Fexofenadine HCl [Mayela Allergy] 180 mg PO DAILY 03/12/20 Multivitamin with Minerals 1 ea PO DAILY 03/12/20 [Multiple Vitamin] Triamcinolone Acetonide [Nasacort 1 spray NASAL DAILY 03/12/20 Aq Nasal [place]] - Social History SMOKING STATUS:: Former smoker Vital Signs Temp Pulse Resp BP Pulse Ox 98.6 F 61 20 H 101/61 93 03/13/20 10:41 03/13/20 10:41 03/13/20 10:41 03/13/20 10:41 03/13/20 10:41 Oxygen Flow Rate (L/min) 4 Oxygen Delivery Method Nasal Cannula Weight: 106.6 kg Body Mass Index (BMI) 43.0 Laboratory Tests Past 24 Hrs 03/12/20 03/12/20 03/12/20 13:40 13:40 13:40 WBC 5.2 RBC 4.23 Hgb 11.0 L Hct 35.5 L MCV 83.9 MCH 26.0 L MCHC 31.0 L RDW Std Deviation 58.6 H RDW Coeff of Constanza 19.1 H Plt Count 425 MPV 9.6 Immature Gran % (Auto) 0.800 Neut % (Auto) 65.7 Lymph % (Auto) 17.0 L [place] % (Auto) 15.9 H Eos % (Auto) 0.4 Baso % (Auto) 0.2 Absolute Neuts (auto) 3.4 Absolute Lymphs (auto) 0.89 Nucleated RBC % 0 Differential Comment Atypical Lymphocytes D-Dimer Quant (PE/DVT) Sodium 144 Potassium 3.2 L Chloride 109 H Carbon Dioxide 29.0 Anion Gap 6 BUN 4 L Creatinine 0.59 Estim Creat Clear Calc 94.23 Est GFR (MDRD) Af Amer 140 Est GFR (MDRD) Non-Af 116 BUN/Creatinine Ratio 6.8 L Glucose 85 Lactic Acid 0.9 Calcium 7.9 L Total Bilirubin 0.30 AST 96 H ALT 73 H Alkaline Phosphatase 130 H Troponin I < 0.015 Total Protein 6.7 Albumin 2.8 L Globulin 3.9 Albumin/Globulin Ratio 0.7 L 03/12/20 03/13/20 03/13/20 13:40 06:22 06:22 WBC 3.3 L RBC 3.88 L Hgb 10.4 L Hct 35.5 L MCV 91.5 D MCH 26.8 L MCHC 29.3 L D RDW Std Deviation 64.8 H RDW Coeff of Constanza 19.5 H Plt Count 346 MPV 9.9 Immature Gran % (Auto) 0.900 Neut % (Auto) 65.2 Lymph % (Auto) 19.1 [place] % (Auto) 12.0 H Eos % (Auto) 2.2 Baso % (Auto) 0.6 Absolute Neuts (auto) 2.1 Absolute Lymphs (auto) 0.62 L Nucleated RBC % 0 Differential Comment SCANNED Atypical Lymphocytes RARE D-Dimer Quant (PE/DVT) 1.15 H* Sodium 139 Potassium 3.4 L Chloride 111 H Carbon Dioxide 22.0 Anion Gap 6 BUN 7 Creatinine 0.53 L Estim Creat Clear Calc 104.90 Est GFR (MDRD) Af Amer 158 Est GFR (MDRD) Non-Af 131 BUN/Creatinine Ratio 13.1 Glucose 122 H Lactic Acid Calcium 7.6 L Total Bilirubin 0.30 AST 71 H ALT 60 H Alkaline Phosphatase 121 H Troponin I Total Protein 6.3 L Albumin 2.5 L Globulin 3.8 Albumin/Globulin Ratio 0.7 L - Other Studies Radiology: [] reviewed Other Studies: [] Route of nutrition/ use of supplements: [] Nutritional Intake: [] IV Site: [] Rodgers Catheter: [] - Physical Exam General: Alert, Oriented x3, Cooperative, No apparent distress HEENT: Atraumatic, PERRLA, EOMI Neck: Supple, No Nodes Lungs: Diminished Cardiovascular: Regular rate, Regular Rhythm Abdomen: Soft, Non Tender, Non-Distended, Obese Extremities: Edema Skin: No rashes IV Site: Peripheral, without redness Musculoskeletal: No Tenderness to Palpation of Joints or Extremities Neurological: Cranial nerves II-XII grossly intact - Assessment/Plan Antibiotics: [] Assessment/Plan: [] Active and Suspected Problems COVID-19 (Acute) Pneumonia due to COVID-19 virus (Acute) Hypoxia (Acute) on dex, therapeutic lovenox while CT PE is pending. Sx started 02/27, so doubt benefit from remdesivir or plasma at this point. Will change dex to po. Will follow, thank you, d/w Dr. Cherry
--- NOTE | 2020-03-13 13:42 | CASEMGMT ---
RN CM Assessment Note Introduced role of CM to patient via phone to room. Demographics, PCP verified. Patient states she lives independently at home with her . No DME. Plans to return home on discharge -Family can bring groceries etc and provide transportation home. -Pt states she is able to isolate in home, however she states Dr. Cook told her she is out of the contagious zone and will not need to isolate. Will need to verify and let pt know prior to dc if there are any quarantine or isolation recommendations. Diagnosis: COVID PCP: Dr. Lucas Insurance: NABILA Doran/Tracie Preferred Pharmacy: [facility] Prescription Benefit: yes LNOK: Living Arrangements: Lives independently Tranportation: drives DME: none. If home oxygen is needed, patient does not have preference as long as is [facility]. Will use [facility] if needed. HHC: none SNF: none Patient DC Goals: Home DC Plan: Home. Recommend oxygen testing at rest and with ambulation prior to discharge CM available for discharge planning coordination. Contact CM for any concerns/needs that may arise. Balta COOK RN ACM
--- NOTE | 2020-03-13 17:51 | CT_ITS ---
STUDY: CTA CHEST REASON FOR EXAM: Female, 44 years old. SOB,COUGH,FEVER, + COVID ON 03-05-20 RADIATION DOSAGE (If Supplied By Facility): CTDIvol = ( 15.03 ) mGy, DLP = ( 518.95 ) mGycm TECHNIQUE: The examination was performed with the intravenous administration of IV 100mL Isovue-370. Post-processing of the angiographic images was performed, with multiplanar reformation and 3D reconstruction. Individualized dose optimization techniques were used for this CT. COMPARISON: None. FINDINGS: There are bilateral patchy and groundglass opacities throughout the lungs. There are small bilateral pleural effusions. Normal enhancement of the main pulmonary artery and right and left pulmonary arteries. Normal enhancement of the bilateral peripheral pulmonary arteries. There is no demonstrated pulmonary embolism. Normal thoracic aorta and visualized great vessels. There is no demonstrated aortic dissection. Normal heart and pericardium. Normal mediastinum. Normal hilar regions. Normal visualized trachea and bronchi. Normal chest wall structures. Normal osseous structures. The limited images of the upper abdomen demonstrate a diffusely low in attenuation liver consistent with fatty infiltration. CT/CTA Chest W/WO Contrast IMPRESSION: No demonstrated pulmonary embolism or arterial dissection. Bilateral patchy and groundglass opacities with an appearance which may be consistent with COVID-19 pneumonia. Fatty infiltration of the liver. Electronically Signed: Leanna Pérez MD at 22:56 EST Tel , Service support ,
[2020-03-13] MEDS: Pantoprazole Sodium 40 MG Tablet PO (21:59)
[2020-03-14 04:17] VITALS: BP 129/78; PULSE 59; RESP 18; TEMP 36.8; O2SAT 96
[2020-03-14 04:20] VITALS: RESP 18; O2SAT 96
[2020-03-14 06:11] LABS: Absolute Lymphocyte Count 1.23 X10^3/uL (0.83-4.51); Absolute Neutrophil Count 6.5 X10^3/uL (2.0-7.7); Basophil# 0.02 X10^3/uL; Basophil% 0.2 % (0-1); Hematocrit 32.4 % (37-47); Lymphocyte # 1.23 X10^3/ul (4.0); Lymphocyte % 13.7 % (19-41); Mean Corp Hgb Conc 30.9 g/dL (32-36); Mean Corpuscular Hgb 26.9 pg (27.0-32.0); Mean Corpuscular Volume 87.1 fL (81-99); Mean Platelet Vol. 10.5 fl (6.2-12.0); Monocyte# 1.09 X10^3/uL; Monocyte% 12.2 % (0-10); NRBC Flagged by Analyzer 0 % (0-5); Neutrophil # 6.52 X10^3/uL (2.7-7.7); Neutrophil % 72.9 % (47-70); POSITIVE MORPHOLOGY YES; Platelet Count 459 K/mm3 (150-450); RBC Distribution Width CV 19.5 % (11.6-14.6); RBC Distribution Width SD 61.8 fl (35.1-43.9); Red Blood Count 3.72 M/mm3 (4.2-5.4)
[2020-03-14 06:27] LABS: Differential Indicated SCAN CRITERIA MET
[2020-03-14 06:44] LABS: ALB/GLOB Ratio 0.9 RATIO (0.9-2.4); AST(SGOT) 57 U/L (15-37); Alanine Aminotransfer ALT/SGPT 56 U/L (13-56); Albumin, Serum 2.6 g/dL (3.2-5.0); Alkaline Phosphatase 108 U/L (45-117); Anion Gap 7 (5-15); BUN 9 mg/dL (7-18); BUN/Creat Ratio 15.1 RATIO (10-20); Calcium,Total 7.2 mg/dL (8.5-10.1); Chloride 111 mmol/L (98-107); EST Glomerular Filtration Rate 115 mL/min (>60); Est Glom Filt Rate - Afr Amer 139 mL/min (>60); Estimated Creatinine Clearance 92.66 ml/min; Glucose 96 mg/dL (74-106); Potassium 3.8 mmol/L (3.5-5.1); Protein, Total 5.6 g/dL (6.4-8.2); Sodium Level 142 mmol/L (136-145)
[2020-03-14 06:49] LABS: Atypical Lymphocyte 1+ %; Differential Comment SCANNED
[2020-03-14 07:00] VITALS: O2SAT 96
--- NOTE | 2020-03-14 07:28 | PCM.PN.HOSP ---
Patient Problems: Active and Suspected Problems COVID-19 (Acute) Pneumonia due to COVID-19 virus (Acute) Hypoxia (Acute) Subjective: Patient with no acute events overnight per self and per nursing report with improved dyspnea, lessen coughing and mildly improved appetite. Patient this morning with oxygenation testing with improvement to room air even with ambulation with decreased only to 92% on room air with significant activity. Patient denies fevers, chills, nausea, emesis, abdominal pain, chest pain. Objective: Physical Examination: General: awake, alert, oriented x 3 and cooperative, seated upright in the local surgical Covid bed, no acute distress, improved appearance from day prior. Skin: normal color, turgor, no icterus, cyanosis. HEENT: AT/NC, EOMI, PERRLA, MMM. Lungs: Poor breath sounds, greater bases, improved from day prior, proved effort, no rales, ronchi or wheezing. Heart: Regular rate and rhythm; no gallop, rub audible. Abdomen: soft, morbidly obese, NTTP, ND, normalized bowel sounds. Extremities: no cyanosis, clubbing, or edema. Neurological: patient awake, alert, oriented as noted; cognitive function appears baseline intact; pupils equally reactive to light and accomodation; cranial nerves II-XII grossly normal, moving all 4 extremities, no focal deficits, strength improved, moderately globally decrease secondary to acute presentation. Psychiatric: affect appears less fatigued, no acute evidence of depressive or anxiety feelings. Vitals/I&O's: Vital Signs Temp Pulse Resp BP Pulse Ox 98.3 F 59 L 18 129/78 H 96 03/14/20 04:17 03/14/20 04:17 03/14/20 04:20 03/14/20 04:17 03/14/20 04:20 Oxygen Flow Rate (L/min) 4 Oxygen Delivery Method Nasal Cannula Weight: 235 lb 0.204 oz Body Mass Index (BMI) 43.0 Intake and Output for Last 24 Hours 03/12/20 03/13/20 03/14/20 23:59 23:59 23:59 Intake Total 1798.33 / 2298.33 850 / 850 Balance 1798.33 / 2298.33 850 / 850 Laboratory Results 03/14/20 05:38: WBC 9.0, RBC 3.72 L, Hgb 10.0 L, Hct 32.4 L, MCV 87.1, MCH 26.9 L, MCHC 30.9 L D, RDW Std Deviation 61.8 H, RDW Coeff of Constanza 19.5 H, Plt Count 459 H, MPV 10.5, Immature Gran % (Auto) 1.000 H, Neut % (Auto) 72.9 H, Lymph % (Auto) 13.7 L, [place] % (Auto) 12.2 H, Eos % (Auto) 0.0, Baso % (Auto) 0.2, Absolute Neuts (auto) 6.5, Absolute Lymphs (auto) 1.23, Nucleated RBC % 0, Differential Comment SCANNED, Atypical Lymphocytes 1+ 03/14/20 05:38: Sodium 142, Potassium 3.8, Chloride 111 H, Carbon Dioxide 24.0, Anion Gap 7, BUN 9, Creatinine 0.60, Estim Creat Clear Calc 92.66, Est GFR (MDRD) Af Amer 139, Est GFR (MDRD) Non-Af 115, BUN/Creatinine Ratio 15.1, Glucose 96, Calcium 7.2 L, Total Bilirubin 0.30, AST 57 H, ALT 56, Alkaline Phosphatase 108, Total Protein 5.6 L, Albumin 2.6 L, Globulin 3.0, Albumin/Globulin Ratio 0.9 Current Medications Acetaminophen (Acetaminophen 325 Mg Tablet) 650 mg PO Q6H PRN PRN PRN Reason: Pain Score 1-10/Temp > 100.7 F Albuterol Sulfate (Albuterol Sulfate Hfa 6.7 Gm Inhaler (200 Puffs)) 2 puff IH Q4H PRN PRN Reason: SHORTNESS OF BREATH Dexamethasone (Dexamethasone 4 Mg Tablet) 6 mg PO DAILY REPLACED BY [facility] Stop: 03/21/20 10:01 Enoxaparin Sodium (Enoxaparin 100 Mg/Ml Syringe) 100 mg SC Q12 REPLACED BY [facility] Last Admin: 03/13/20 21:59 Dose: 100 mg Documented by: Fluticasone Propionate (Fluticasone 0.05% 1 [place] Nasal.Sry) 1 spray NASAL DAILY REPLACED BY [facility] Last Admin: 03/13/20 08:26 Dose: 1 spray Documented by: Sodium Chloride () 1,000 mls @ 100 mls/hr IV .Q10H REPLACED BY [facility] Last Admin: 03/14/20 01:34 Dose: Not Given Documented by: Loratadine (Loratadine 10 Mg Tablet) 10 mg PO DAILY REPLACED BY [facility] Last Admin: 03/13/20 08:27 Dose: 10 mg Documented by: Multivitamins/Minerals (Multivitamins,Ther W-Minerals Tablet) 1 tablet PO DAILY REPLACED BY [facility] Ondansetron HCl (Ondansetron 4 Mg/2 Ml Vial) 4 mg IV Q8H PRN PRN PRN Reason: NAUSEA/VOMITING Pantoprazole Sodium (Pantoprazole Sodium 40 Mg Tablet) 40 mg PO QHS REPLACED BY [facility] Last Admin: 03/13/20 21:59 Dose: 40 mg Documented by: Sodium Chloride (0.9% Saline Lock 10 Ml Syringe) 10 - 40 ml IV UD PRN PRN Reason: SALINE FLUSH Last Admin: 03/13/20 23:25 Dose: 10 ml Documented by: STROKE Vital Signs/Narrative: Vital Signs Temp Pulse Resp BP Pulse Ox 03/14/20 04:20 18 96 03/14/20 04:17 98.3 F 59 L 18 129/78 H 96 Medical Necessity - Tobacco Use Smoking Status: Former smoker Tobacco Use: Cigarettes Assessment/Plan All Active Problems COVID-19 (Acute) Pneumonia due to COVID-19 virus (Acute) Hypoxia (Acute) The patient is a 44 y/o F w/ PMHx: Morbid Obesity, Rheumatoid arthritis, GERD, Allergic Rhinitis who presents to the [facility] ED on 03/13/20 with history of progressively worsening dyspnea with cough as well as fever with symptoms initially beginning on 02/28/2020, worsening with now onset of nausea without emesis additionally. 1. Acute Hypoxia, Dyspnea, Cough, Fever with Bilateral Pneumonia secondary to Acute Viral Syndrome, COVID-19: Admitted to medical surgical Covid unit, initiated on IV dexamethasone with plan 10-day course, infectious disease consulted and following with transition to oral regimen given clinical improvement, given 02/28/2020 onset of symptoms patient is not a candidate per his you for remdesivir or convalescent plasma, D-dimer 1.15 upon presentation, CTPA with no evidence of PE, aortic dissection or aneurysm with prominent pulmonary arteries with diffuse perihilar infiltrates, in the interim placed on therapeutic Lovenox but given negative CTPA for pulmonary emboli transition to chemoprophylaxis and plan to aspirin 81 mg daily upon discharge for 2 weeks, continued supportive care. Oxygenation trial today with improvement and transition confirmation to room air even with activity. Given patient clinical improvement and reduced oxygen requirements planned discharge to home with close follow-up. 2. Normocytic anemia: Admission hemoglobin 11, repeat 03/13/2020 10.4, appears chronic with 01/27/2020 level noted 11.3, 03/14/2020 hemoglobin 10, urged continued follow-up outpatient. 3. Allergic rhinitis: We will continue fluticasone as well as Claritin regimen while inpatient. 4. Morbid Obesity: Weight loss and lifestyle changes encouraged, nutrition consulted. 5. Rheumatoid arthritis: Not on regimen, encourage continued outpatient follow-up. 6. GERD: We will continue patient home PPI. 7. DVT prophylaxis: SCDs, therapeutic Lovenox with transition to chemoprophylaxis given no evidence PE with planned aspirin 81 mg daily upon discharge. 8. Code Status: Full Code.
[2020-03-14 08:54] VITALS: BP 121/67; PULSE 75; RESP 18; TEMP 36.6; O2SAT 94
[2020-03-14] MEDS: Fluticasone 0.05% 1 SPRAY NASAL.SRY NASAL (09:01)
[2020-03-14] MEDS: Loratadine 10 MG Tablet PO (09:01)
[2020-03-14] MEDS: dexAMETHasone 4 MG Tablet 6 MG PO (09:02)
[2020-03-14] MEDS: 0.9% Normal Saline 1,000 ML 100 ML IV (09:02)
[2020-03-14] MEDS: Multivitamins,Ther W-Minerals Tablet 1 TABLET PO (09:02)
[2020-03-14] MEDS: Enoxaparin 100 MG/ML Syringe SC (09:03)
[2020-03-14 13:45] VITALS: O2SAT 92; O2SAT 95
--- NOTE | 2020-03-14 13:54 | CASEMGMT ---
FREDDIE CM Note: patient to be dc'd today. No PT needed on discharge and patient did not require home oxygen per testing results. Patient was independent prior to admission. DC PLAN: Home. Balta COOK RN ACM
--- NOTE | 2020-03-14 14:20 | DCINST_ITS ---
- Discharge Diagnoses Current Active Problems: Current Active and Chronic Problems 1. Acute Hypoxia, Dyspnea, Cough, Fever with Bilateral Pneumonia secondary to Acute Viral Syndrome, COVID-19 2. Normocytic anemia 3. Allergic rhinitis 4. Morbid Obesity 5. Rheumatoid arthritis 6. GERD You will use the following diet at home:: Regular Your food should be the consistency of: Regular Your liquids should be the consistency of: Regular/Thin Discharge Activity: - - Encourage routine activity but no moderate or aggressive activity until clinically improved, completed steroid regimen and re-evaluated per your primary care physician. May resume sexual activity in: - - Avoid until clinically improved and no quarantined. Weight Bearing Status: Weight bearing as tolerated Call your doctor if you observe: Fever of 101 or Higher, Inability to urinate, Inability to have a bowel movement, Shortness of breath, Dizziness, Fainting spells, Chest pain, Uncontrolled pain Instructions: What Is Pneumonia? Additional Instructions: When can positive or suspected COVID-19 patients be discharged, what are the requirements and what needs to be in place for discharge? ?They can be discharged when they are clinically stable. ?They do not need to meet criteria for transmission-based precautions to be discharged as these may be continued at home. ?Patient needs to be able to call for assistance if worsens. ?Household members must have access to PPE and willing to adhere to precaution measures at home. ?The patient needs to have access to a separate bedroom and bathroom. ?Need to assure patient has access to food delivery, supply delivery, medication delivery. Best to give them any needed routine medication refills (1-month supply). ?If DME is needed, this needs to be set up prior as usual and DME must be aware of precautions needed. ?Members in the household must not be at increased risk of COVID-19 (elderly, , immunosuppressed, severe medical comorbidities). 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 Home going instructions: ?Patient to continue similar isolation as in hospital and those also in the home to continue precautions until isolation complete or if COVID-19 testing is negative. ?Patient must continue twice daily temperature checks, in the AM and evening and notify the health department of any changes (If COVID-19 positive or their primary care if pending testing). Transmission-based Precaution Timeline: ?Patients with a confirmed or high suspicion of COVID-19 should remain under home isolation precautions for 7 days or until 72 hours after complete resolution of fever and symptoms (cough, dyspnea, myalgia, sore throat) without antipyretic medication. ?Further testing is not required beyond this unless there was noted organ dysfunction. ?If COVID-19 testing is pending upon discharge, [facility] will contact them if the result is positive, but attempting to arrange for Infection Control to contact them if results are negative to be able to stop precautions given limited PPE availability. Follow-up Care: ?The primary care should be informed of a COVID-19 positive test if resulted while in the hospital, otherwise Infection Control may need to be the individual to notify their physician. ?Please consider early virtual primary visit follow-up upon their discharge and follow-up to review temperature journal and symptom review. ADDITIONAL FOLLOW-UP: Please continue baby aspirin daily regimen for 14 days. Please complete Decadron regimen. Please use home oximeter to test your oxygenation daily at rest and when ambulatory and if any concerns immediately contact your primary care physician or if symptomatic present to the ED via EMS for evaluation. Allergies/Adverse Reactions: Allergies codeine Adverse Reaction (Severe, Verified 03/12/20 13:44) itchy, nausea Medications to take at Discharge omeprazole 40 mg capsule,delayed release 40 mg PO QHS #90 cap 03/17/19 Fexofenadine HCl [Mayela Allergy] 180 mg PO DAILY 03/12/20 Multivitamin with Minerals [Multiple Vitamin] 1 ea PO DAILY 03/12/20 Triamcinolone Acetonide [Nasacort Aq Nasal [employer] [place]] 1 spray NASAL DAILY 03/12/20 Albuterol Sulfate [Proventil Hfa] 2 puff IH Q4H PRN #1 inhaler 03/14/20 Aspirin [Aspirin, Baby] 81 mg PO DAILY@0800 #14 tab.chew 03/14/20 Dexamethasone [Decadron] 6 mg PO DAILY #7 tab 03/14/20 The following prescriptions were given: Aspirin [Aspirin, Baby] 81 mg PO DAILY@0800 #14 tab.chew Transmission Status: Pending to [facility]/pharmacy #[id number] Dexamethasone [Decadron] 6 mg PO DAILY #7 tab Transmission Status: Pending to [facility] Albuterol Sulfate [Proventil Hfa] 2 puff IH Q4H PRN #1 inhaler PRN Reason: SHORTNESS OF BREATH Transmission Status: Pending to [facility] Primary Care Physician: Nancy Lucas DO [Primary Care Provider] - Please follow up with your Primary Care Physician in: Please follow-up within 2- 3 days, repeat oxygenation assessment. Test Results: Test results from this visit will be discussed in further detail at your follow- up appointment, if applicable. Proposed Discharge Date: 03/14/20
--- NOTE | 2020-03-14 14:38 | PCM.DC.SUM ---
Discharge Date and Diagnosis - Problem List Patient Problems: Active and Suspected Problems COVID-19 (Acute) Pneumonia due to COVID-19 virus (Acute) Hypoxia (Acute) Date of Admission: 03/12/20 Date of Discharge: 03/14/20 - Primary Discharge Diagnosis Acute Problems: Active Problems 1. Acute Hypoxia, Dyspnea, Cough, Fever with Bilateral Pneumonia secondary to Acute Viral Syndrome, COVID-19 2. Normocytic anemia 3. Allergic rhinitis 4. Morbid Obesity 5. Rheumatoid arthritis 6. GERD - Secondary Discharge Diagnosis Chronic Problems: Chronic Problems Rheumatoid arthritis (Chronic) Hospital Course and Treatment Dr. Cook Infectious disease Operations: None Procedures: EKG Summary of Care Provided: The patient is a 44 y/o F w/ PMHx: Morbid Obesity, Rheumatoid arthritis, GERD, Allergic Rhinitis who presented to the [facility] ED on 03/13/20 with history of progressively worsening dyspnea with cough as well as fever with symptoms initially beginning on 02/28/2020, worsening with now onset of nausea without emesis additionally. Admitted to medical surgical Covid unit, initiated on IV dexamethasone with plan 10-day course, infectious disease consulted and following with transition to oral regimen given clinical improvement, given 02/28/2020 onset of symptoms patient is not a candidate per his you for remdesivir or convalescent plasma, D-dimer 1.15 upon presentation, CTPA with no evidence of PE, aortic dissection or aneurysm with prominent pulmonary arteries with diffuse perihilar infiltrates, in the interim placed on therapeutic Lovenox but given negative CTPA for pulmonary emboli transition to chemoprophylaxis and plan to aspirin 81 mg daily upon discharge for 2 weeks, continued supportive care. Oxygenation trial today with improvement and transition confirmation to room air even with activity. Given patient clinical improvement and reduced oxygen requirements planned discharge to home with close follow-up. Discharged to home in improved clinical condition with recommended early follow-up with primary care physician. Recommended also patient continue to assess her oxygenation with home oximeter daily both at rest and with activity and if any significant decrease or concerns to immediately present to the ED or primary care physician for evaluation. Patient Problems: Active and Suspected Problems COVID-19 (Acute) Pneumonia due to COVID-19 virus (Acute) Hypoxia (Acute) - Physical Exam Vitals/I&O's: Vital Signs Temp Pulse Resp BP Pulse Ox 97.8 F 75 18 121/67 H 95 03/14/20 08:54 03/14/20 08:54 03/14/20 08:54 03/14/20 08:54 03/14/20 13:45 Oxygen Flow Rate (L/min) [ 0 AMBULATING on Room Air] Oxygen Flow Rate (L/min) [At 0 REST on Room Air] Oxygen Flow Rate (L/min) 4 Oxygen Delivery Method Nasal Cannula Weight: 235 lb 0.204 oz Body Mass Index (BMI) 43.0 Intake and Output for Last 24 Hours 03/12/20 03/13/20 03/14/20 23:59 23:59 23:59 Intake Total 1798.33 / 2298.33 1811.67 / 1811.67 Balance 1798.33 / 2298.33 1811.67 / 1811.67 Laboratory Results 03/14/20 05:38: WBC 9.0, RBC 3.72 L, Hgb 10.0 L, Hct 32.4 L, MCV 87.1, MCH 26.9 L, MCHC 30.9 L D, RDW Std Deviation 61.8 H, RDW Coeff of [place]anza 19.5 H, Plt Count 459 H, MPV 10.5, Immature Gran % (Auto) 1.000 H, Neut % (Auto) 72.9 H, Lymph % (Auto) 13.7 L, [place] % (Auto) 12.2 H, Eos % (Auto) 0.0, Baso % (Auto) 0.2, Absolute Neuts (auto) 6.5, Absolute Lymphs (auto) 1.23, Nucleated RBC % 0, Differential Comment SCANNED, Atypical Lymphocytes 1+ 03/14/20 05:38: Sodium 142, Potassium 3.8, Chloride 111 H, Carbon Dioxide 24.0, Anion Gap 7, BUN 9, Creatinine 0.60, Estim Creat Clear Calc 92.66, Est GFR (MDRD) Af Amer 139, Est GFR (MDRD) Non-Af 115, BUN/Creatinine Ratio 15.1, Glucose 96, Calcium 7.2 L, Total Bilirubin 0.30, AST 57 H, ALT 56, Alkaline Phosphatase 108, Total Protein 5.6 L, Albumin 2.6 L, Globulin 3.0, Albumin/Globulin Ratio 0.9 Current Medications Acetaminophen (Acetaminophen 325 Mg Tablet) 650 mg PO Q6H PRN PRN PRN Reason: Pain Score 1-10/Temp > 100.7 F Albuterol Sulfate (Albuterol Sulfate Hfa 6.7 Gm Inhaler (200 Puffs)) 2 puff IH Q4H PRN PRN Reason: SHORTNESS OF BREATH Dexamethasone (Dexamethasone 4 Mg Tablet) 6 mg PO DAILY [facility] Stop: 03/21/20 10:01 Last Admin: 03/14/20 09:02 Dose: 6 mg Documented by: Enoxaparin Sodium (Enoxaparin 40 Mg/0.4 Ml Syringe) 40 mg SC Q12 [facility] Fluticasone Propionate (Fluticasone 0.05% 1 [place] Nasal.Sry) 1 spray NASAL DAILY [facility] Last Admin: 03/14/20 09:01 Dose: 1 spray Documented by: Sodium Chloride () 1,000 mls @ 100 mls/hr IV .Q10H [facility] Last Admin: 03/14/20 09:02 Dose: 100 mls/hr Documented by: Loratadine (Loratadine 10 Mg Tablet) 10 mg PO DAILY [facility] Last Admin: 03/14/20 09:01 Dose: 10 mg Documented by: Multivitamins/Minerals (Multivitamins,Ther W-Minerals Tablet) 1 tablet PO DAILY [facility] Last Admin: 03/14/20 09:02 Dose: 1 tablet Documented by: Ondansetron HCl (Ondansetron 4 Mg/2 Ml Vial) 4 mg IV Q8H PRN PRN PRN Reason: NAUSEA/VOMITING Pantoprazole Sodium (Pantoprazole Sodium 40 Mg Tablet) 40 mg PO QHS [facility] Last Admin: 03/13/20 21:59 Dose: 40 mg Documented by: Sodium Chloride (0.9% Saline Lock 10 Ml Syringe) 10 - 40 ml IV UD PRN PRN Reason: SALINE FLUSH Last Admin: 03/13/20 23:25 Dose: 10 ml Documented by: Discharge Activity: - - Encourage routine activity but no moderate or aggressive activity until clinically improved, completed steroid regimen and re-evaluated per your primary care physician. May resume sexual activity in: - - Avoid until clinically improved and no quarantined. Weight Bearing Status: Weight bearing as tolerated Call your doctor if you observe: Fever of 101 or Higher, Inability to urinate, Inability to have a bowel movement, Shortness of breath, Dizziness, Fainting spells, Chest pain, Uncontrolled pain Home Medications: Medications to take at Discharge omeprazole 40 mg capsule,delayed release 40 mg PO QHS #90 cap 03/17/19 Fexofenadine HCl [Mayela Allergy] 180 mg PO DAILY 03/12/20 Multivitamin with Minerals [Multiple Vitamin] 1 ea PO DAILY 03/12/20 Triamcinolone Acetonide [Nasacort Aq Nasal [place]] 1 spray NASAL DAILY 03/12/20 Albuterol Sulfate [Proventil Hfa] 2 puff IH Q4H PRN #1 inhaler 03/14/20 Aspirin [Aspirin, Baby] 81 mg PO DAILY@0800 #14 tab.chew 03/14/20 Dexamethasone [Decadron] 6 mg PO DAILY #7 tab 03/14/20 Following Prescriptions Were Given to Patient: Aspirin [Aspirin, Baby] 81 mg PO DAILY@0800 #14 tab.chew Transmission Status: Pending to [facility]/pharmacy #[id number] Dexamethasone [Decadron] 6 mg PO DAILY #7 tab Transmission Status: Pending to [facility] Albuterol Sulfate [Proventil Hfa] 2 puff IH Q4H PRN #1 inhaler PRN Reason: SHORTNESS OF BREATH Transmission Status: Pending to [facility] Primary Care Physician: Nancy Lucas DO [Primary Care Provider] - Please follow up with your Primary Care Physician in: Please follow-up within 2-3 days, repeat oxygenation assessment. Patient Instructions: What Is Pneumonia? Disposition: Home Minutes spent on discharge:: 35 Patient Condition:: Fair Medical Necessity - Tobacco Use Smoking Status: Former smoker Tobacco Use: Cigarettes Meaningful Use Info Meaningful Use Diagnoses (Choose all that apply): None applicable Inpatient E&M: 51527 [facility]
[2020-03-14 15:40] VITALS: BP 133/95; PULSE 76; RESP 18; TEMP 36.7; O2SAT 93
--- NOTE | 2020-03-14 16:15 | PN.ID_ITS ---
Patient Problems: Active and Suspected Problems COVID-19 (Acute) Pneumonia due to COVID-19 virus (Acute) Hypoxia (Acute) Subjective: Feeling much better today, off O2, discharge planned. - Physical Exam Vitals/I&O's: Vital Signs Temp Pulse Resp BP Pulse Ox 98.0 F 76 18 133/95 H 93 03/14/20 15:40 03/14/20 15:40 03/14/20 15:40 03/14/20 15:40 03/14/20 15:40 Oxygen Flow Rate (L/min) [ 0 AMBULATING on Room Air] Oxygen Flow Rate (L/min) [At 0 REST on Room Air] Oxygen Flow Rate (L/min) 4 Oxygen Delivery Method Room Air Weight: 106.6 kg Body Mass Index (BMI) 43.0 Intake and Output for Last 24 Hours 03/12/20 03/13/20 03/14/20 23:59 23:59 23:59 Intake Total 1798.33 / 2298.33 2470.00 / 2470.00 Balance 1798.33 / 2298.33 2470.00 / 2470.00 General: Alert, Cooperative, No apparent distress Lungs: Clear to auscultation, Diminished Cardiovascular: Regular rate, Regular Rhythm Abdomen: Soft, Non Tender, Non-Distended Skin: No rashes Laboratory Results 03/14/20 05:38: WBC 9.0, RBC 3.72 L, Hgb 10.0 L, Hct 32.4 L, MCV 87.1, MCH 26.9 L, MCHC 30.9 L D, RDW Std Deviation 61.8 H, RDW Coeff of [place] 19.5 H, Plt Count 459 H, MPV 10.5, Immature Gran % (Auto) 1.000 H, Neut % (Auto) 72.9 H, Lymph % (Auto) 13.7 L, [place] % (Auto) 12.2 H, Eos % (Auto) 0.0, Baso % (Auto) 0.2, Absolute Neuts (auto) 6.5, Absolute Lymphs (auto) 1.23, Nucleated RBC % 0, Differential Comment SCANNED, Atypical Lymphocytes 1+ 03/14/20 05:38: Sodium 142, Potassium 3.8, Chloride 111 H, Carbon Dioxide 24.0, Anion Gap 7, BUN 9, Creatinine 0.60, Estim Creat Clear Calc 92.66, Est GFR (MDRD) Af Amer 139, Est GFR (MDRD) Non-Af 115, BUN/Creatinine Ratio 15.1, Glucose 96, Calcium 7.2 L, Total Bilirubin 0.30, AST 57 H, ALT 56, Alkaline Phosphatase 108, Total Protein 5.6 L, Albumin 2.6 L, Globulin 3.0, Albumin/Globulin Ratio 0.9 Current Medications Acetaminophen (Acetaminophen 325 Mg Tablet) 650 mg PO Q6H PRN PRN PRN Reason: Pain Score 1-10/Temp > 100.7 F Albuterol Sulfate (Albuterol Sulfate Hfa 6.7 Gm Inhaler (200 Puffs)) 2 puff IH Q4H PRN PRN Reason: SHORTNESS OF BREATH Dexamethasone (Dexamethasone 4 Mg Tablet) 6 mg PO DAILY [facility] Stop: 03/21/20 10:01 Last Admin: 03/14/20 09:02 Dose: 6 mg Documented by: Enoxaparin Sodium (Enoxaparin 40 Mg/0.4 Ml Syringe) 40 mg SC Q12 [facility] Fluticasone Propionate (Fluticasone 0.05% 1 [place] Nasal.Sry) 1 spray NASAL DAILY [facility] Last Admin: 03/14/20 09:01 Dose: 1 spray Documented by: Sodium Chloride () 1,000 mls @ 100 mls/hr IV .Q10H [facility] Last Infusion: 03/14/20 15:37 Dose: Infused Documented by: Loratadine (Loratadine 10 Mg Tablet) 10 mg PO DAILY [facility] Last Admin: 03/14/20 09:01 Dose: 10 mg Documented by: Multivitamins/Minerals (Multivitamins,Ther W-Minerals Tablet) 1 tablet PO DAILY [facility] Last Admin: 03/14/20 09:02 Dose: 1 tablet Documented by: Ondansetron HCl (Ondansetron 4 Mg/2 Ml Vial) 4 mg IV Q8H PRN PRN PRN Reason: NAUSEA/VOMITING Pantoprazole Sodium (Pantoprazole Sodium 40 Mg Tablet) 40 mg PO QHS [facility] Last Admin: 03/13/20 21:59 Dose: 40 mg Documented by: Sodium Chloride (0.9% Saline Lock 10 Ml Syringe) 10 - 40 ml IV UD PRN PRN Reason: SALINE FLUSH Last Admin: 03/13/20 23:25 Dose: 10 ml Documented by: Medical Necessity - Tobacco Use Smoking Status: Former smoker Tobacco Use: Cigarettes Route of nutrition/ use of supplements: [] Nutritional Intake: [] IV Site: [] Rodgers Catheter: [] - Assessment/Plan Antibiotics: [] Assessment/Plan: [] Active and Suspected Problems COVID-19 (Acute) Pneumonia due to COVID-19 virus (Acute) Hypoxia (Acute) on dex, ok for discharge home to complete total [address] neg for PE, so decreased lovenox dose. Will follow as needed
--- NOTE | 2020-03-15 15:28 | CASEMGMT ---
FREDDIE CM DC CALL DC DATE: 03/14/2020 DC Disposition: Home DC Diagnosis: COVID-19 Attempted call to patient's phone. No answer and no messaging with name identifier. Balta COOK RN ACM
== END 2020-03-14 16:55 | disposition home or self-care (01) | DRG 177 ==
LOC: ED 14:31 → MS2 15:59
PROVIDERS: Nurse Practitioner Family; Emergency Provider Emergency Medicine; PCP Internal Medicine; Visit Provider Family Medicine
DX: U07.1 COVID-19 (principal); J12.89 Other viral pneumonia; Z68.41 Body mass index [BMI] 40.0-44.9, adult; R09.02 Hypoxemia; E66.01 Morbid (severe) obesity due to excess calories; M06.9 Rheumatoid arthritis, unspecified; M79.7 Fibromyalgia; K21.9 Gastro-esophageal reflux disease without esophagitis; D64.9 Anemia, unspecified; Z87.891 Personal history of nicotine dependence
CPT/HCPCS: 71045; 71275; 80053; 83605; 84484; 85025; 85379; 87040; 93005; 99284; J7030; Q9967; A4216

== ENCOUNTER → 2020-03-20 12:56 | Outpatient (CLI) | payer BC, SELFPAY ==
[2020-03-12 17:05] VITALS: BMI 43.0
--- NOTE | 2020-03-20 13:00 | RAD_ITS ---
STUDY: X-RAY CHEST REASON FOR EXAM: Female, 44 years old. Fever. Shortness of breath. COVID Positive. TECHNIQUE: Frontal and lateral views of the chest COMPARISON: 03/12/20 FINDINGS: Again noted are bilateral patchy airspace opacities which are improved when compared with the prior exam. There are no pleural effusions. There is no pneumothorax. The heart is normal in size. The visualized osseous structures are within normal limits. RAD/Chest PA and Lateral IMPRESSION: Bilateral patchy airspace opacities which are improved when compared with the prior exam. Electronically Signed: Shane Cheng, at 19:56 EST Tel , Service support ,
== END ==
PROVIDERS: PCP Internal Medicine; Referring Provider Internal Medicine; Visit Provider Internal Medicine
DX: R06.02 Shortness of breath (principal)
CPT/HCPCS: 71046

== ENCOUNTER 2020-06-21 04:56 | Emergency (ER) | payer OTHER, SELFPAY ==
[2020-06-21 04:56] VITALS: BP 132/95; PULSE 94; RESP 18; TEMP 36.8; O2SAT 97; BMI 43.2
--- NOTE | 2020-06-21 05:04 | EKG12_ITS ---
Test Reason : CP Blood Pressure : / mmHG Vent. Rate : 085 BPM Atrial Rate : 085 BPM P-R Int : 134 ms QRS Dur : 090 ms QT Int : 352 ms P-R-T Axes : 044 026 026 degrees QTc Int : 418 ms Normal sinus rhythm Normal ECG Confirmed by JEMMA DURAND, MOIZ ([id number]), senior editor CARLOS MARY ([id number]) on 06/25/2020 10:47:40 AM Referred By: LEW Confirmed By:MOIZ EASTON MD
--- NOTE | 2020-06-21 05:04 | RAD_ITS ---
STUDY: X-RAY CHEST REASON FOR EXAM: Female, 44 years old. patient with right sided chest pain that started at 2100. patient states pain started in right side of neck and radiated to right chest and has progressively gotten worse TECHNIQUE: Single AP portable view of the chest. COMPARISON: 03/20/2020 FINDINGS: The lungs are clear and expanded. There is no demonstrated pleural abnormality. Normal size heart. Normal mediastinum and nayeli. Normal visualized pulmonary arteries. Normal visualized aortic arch and descending thoracic aorta. Normal visualized thoracic spine. Normal visualized ribs, clavicles, and shoulders. There is no demonstrated abnormality of the visualized soft tissue structures of the upper abdomen. RAD/Chest 1 View (Portable) IMPRESSION: Normal x-ray examination of the chest. Electronically Signed: Sonu Fuentes DO at 5:32 EST Tel , Service support ,
--- NOTE | 2020-06-21 05:08 | ED.VIS.GEN ---
History of Present Illness Chief Complaint: Chest Pain Narrative: Patient is a 44-year-old female who presents with chest pain. This began about 8 hours ago, at 9 PM. Initially was on the right side of her neck but then radiated down into her chest. She describes it as pressure-like. She rates it as a 4 or 5 out of 10. She complains of mild shortness of breath. No diaphoresis dizziness abdominal pain nausea vomiting. No extremity pain or swelling. No recent travel surgery immobilization. No history of DVT or pulmonary embolism. She is not a smoker. No family history of coronary artery disease in first-degree relatives age less than 55. Grandfather did have congestive heart failure. Past Medical History - Allergies and Home Meds Allergies/Adverse Reactions: Allergies codeine Adverse Reaction (Severe, Verified 06/21/20 05:03) itchy, nausea Primary Care Physician: Nancy Lucas DO [Primary Care Provider] - Past Medical History: - - Rheumatoid arthritis Surgical History: - - Right wrist fusion, hysterectomy, cholecystectomy, basal cell resection. Smoking Status: Former smoker - Family History Maternal Family History: Reports: - - Denies maternal medical history including cardiac history. Paternal Family History: Reports: - - Denies paternal medical history including cardiac history. Review of Systems All systems negative except as indicated General: Denies: Fever Eyes: Denies: Visual changes - bilaterally ENT: Reports: Rhinorrhea Cardiovascular: Reports: Chest pain Respiratory: Reports: Dyspnea. Denies: Cough, Sputum Gastrointestinal: Denies: Abdominal pain, Nausea, Vomiting, Diarrhea Musculoskeletal: Denies: Swelling, Extremity Pain Skin: Denies: Rash Neurological: Denies: Headache Hematologic: Denies: Easy bruising Allergy: Denies: Uticaria Physical Exam Vital Signs/Narrative: Vital Signs Temp Pulse Resp BP Pulse Ox 06/21/20 04:56 98.3 F 94 18 132/95 H 97 Inital Vital Signs reviewed: Yes General: Well nourished Head: Normocephalic Eyes: EOMI ENT: Moist mucous membranes Neck: Supple Cardiovascular: Regular rate, Regular rhythm Respiratory: No distress, CTA bilaterally Abdomen: Soft, Nontender Extremities: Nontender, No edema Skin: Normal color Neurological: Alert Psychological: Normal affect Diagnostic/Tx/Re-eval - Medical Decision Making Patient was given aspirin. EKG shows normal sinus rhythm at a rate of 85. No acute ischemic changes. Laboratory studies are unremarkable with a negative troponin. One-view portable chest x-ray was obtained. On my interpretation the shows no acute process. This was read by radiology and agrees. Patient's heart score is 2. Patient has a negative troponin with 8 hours of chest pain. I believe myocardial infarction is ruled out at this point. I recommended that she follow-up as an outpatient. She does understand return for new or worsening symptoms. All questions were answered at bedside. Patient discharged. ED Disposition - Plan for ED Patient: Disposition: Home or Assisted Living Diagnosis: Chest pain Instructions: ED Pain, Acute, Uncertain Cause Referrals: Nancy Lucas DO [Primary Care Provider] -
[2020-06-21 05:10] VITALS: O2SAT 99
[2020-06-21 05:14] LABS: Absolute Lymphocyte Count 2.18 X10^3/uL (0.83-4.51); Absolute Neutrophil Count 6.7 X10^3/uL (2.0-7.7); Basophil# 0.08 X10^3/uL; Basophil% 0.8 % (0-1); Eosinophil# 0.28 X10^3/uL; Eosinophils% 2.8 % (0-5); Hematocrit 40.1 % (37-47); Hemoglobin 12.7 g/dL (12.0-15.0); Lymphocyte # 2.18 X10^3/ul (4.0); Lymphocyte % 21.5 % (19-41); Mean Corp Hgb Conc 31.7 g/dL (32-36); Mean Corpuscular Hgb 26.1 pg (27.0-32.0); Mean Corpuscular Volume 82.3 fL (81-99); Mean Platelet Vol. 10.5 fl (6.2-12.0); Monocyte# 0.91 X10^3/uL; NRBC Flagged by Analyzer 0 % (0-5); Neutrophil # 6.67 X10^3/uL (2.7-7.7); Neutrophil % 65.5 % (47-70); Platelet Count 366 K/mm3 (150-450); RBC Distribution Width SD 41.4 fl (35.1-43.9); Red Blood Count 4.87 M/mm3 (4.2-5.4); White Blood Count 10.2 K/mm3 (4.4-11.0)
[2020-06-21] MEDS: Aspirin 81 MG TAB.CHEW 324 MG PO (05:15)
[2020-06-21 05:32] LABS: Anion Gap 8 (5-15); BUN 20 mg/dL (7-18); BUN/Creat Ratio 23.6 RATIO (10-20); Chloride 108 mmol/L (98-107); Creatinine, Serum 0.85 mg/dL (0.55-1.02); EST Glomerular Filtration Rate 76 mL/min (>60); Est Glom Filt Rate - Afr Amer 92 mL/min (>60); Estimated Creatinine Clearance 65.41 ml/min; Glucose 91 mg/dL (74-106); Potassium 3.5 mmol/L (3.5-5.1); Sodium Level 139 mmol/L (136-145)
[2020-06-21 05:57] VITALS: BP 128/90; PULSE 86; RESP 16; O2SAT 98
== END 2020-06-21 06:02 | disposition home or self-care (01) ==
PROVIDERS: Emergency Provider Emergency Medicine; PCP Internal Medicine
DX: R07.89 Other chest pain (principal); R06.00 Dyspnea, unspecified; J34.89 Other specified disorders of nose and nasal sinuses; M06.9 Rheumatoid arthritis, unspecified; Z79.82 Long term (current) use of aspirin; Z79.899 Other long term (current) drug therapy; Z87.891 Personal history of nicotine dependence
CPT/HCPCS: 71045; 80048; 84484; 85025; 85379; 93005; 99285; A4216

== ENCOUNTER → 2020-06-21 14:37 | Outpatient (CLI) | payer OTHER, SELFPAY ==
[2020-06-21 04:56] VITALS: BMI 43.2
--- NOTE | 2020-06-21 14:46 | CT_ITS ---
STUDY: CTA CHEST REASON FOR EXAM: Female, 44 years old. SHORT OF BREATH/CHEST PAIN SINCE LAST NIGHT -- COVID 03/2020 -- SEEN IN ER LAST NIGHT FOR SAME--ALL RESULTS W/IN NORMAL RANGE RADIATION DOSAGE (If Supplied By Facility): CTDIvol = ( 10.11 ) mGy, DLP = ( 551.96 ) mGycm TECHNIQUE: The examination was performed with the intravenous administration of IV 100mL Isovue-370. Post-processing of the angiographic images was performed, with multiplanar reformation and 3D reconstruction. Individualized dose optimization techniques were used for this CT. COMPARISON: Comparison is made with prior examination dated 03/13/2020. FINDINGS: Normal enhancement of the main pulmonary artery and right and left pulmonary arteries. Normal enhancement of the bilateral peripheral pulmonary arteries. There is no demonstrated pulmonary embolism. Normal thoracic aorta and visualized great vessels. There is no demonstrated aortic dissection. Normal heart and pericardium. Normal mediastinum. Normal hilar regions. Normal visualized trachea and bronchi. The lungs are well expanded. Normal pulmonary parenchyma. Normal pleura. Normal chest wall structures. Normal osseous structures. Fatty infiltration of the liver. CT/CTA Chest W/WO Contrast IMPRESSION: Normal CTA chest examination, without a demonstrated pulmonary embolism or arterial dissection. Electronically Signed: Amarjit Patel MD at 15:38 EST , Service support ,
== END ==
PROVIDERS: PCP Internal Medicine; Referring Provider Internal Medicine; Visit Provider Internal Medicine
DX: R79.89 Other specified abnormal findings of blood chemistry (principal)
CPT/HCPCS: 71275; Q9967

== ENCOUNTER → 2021-04-08 11:10 | Outpatient (CLI) | payer OTHER, SELFPAY ==
--- NOTE | 2021-04-08 11:23 | MRI_ITS ---
History: BACK PAIN LEG PAIN Technique: T1 and T2 MR imaging of the lumbar spine performed without contrast enhancement in axial and sagittal planes. Findings: Alignment of the lumbar vertebral bodies is normal. No bone marrow edema. Decreased T2 signal intensity within the L3-4 and L4-5 intervertebral disc related to desiccation. No significant disc space narrowing. Facet arthropathy noted at multiple levels most prominent at L4-5. Conus medullaris and cauda equina are normal. Paraspinal soft tissues are normal. L1-2: No disc protrusion. Normal caliber spinal canal and neural foramina. L2-3: No disc protrusion. Normal caliber spinal canal and neural foramina. L3-4: No disc protrusion. Normal caliber spinal canal and neural foramina. L4-5: No disc protrusion. Normal caliber spinal canal and neural foramina. L5-S1: No disc protrusion. Normal caliber spinal canal and neural foramina. IMPRESSION: Mild disc degeneration at L4-5 and L5-S1. Multilevel facet arthropathy. No disc herniation or spinal or neuroforaminal stenosis. at 1519 Reported and signed by: Jovan Clement MD Electronically Signed: Jovan Clement MD at 15:18 EST Tel , Service support , MRI/Spine Lumbar (Routine)
== END ==
PROVIDERS: PCP Internal Medicine; Visit Provider Anesthesiology Pain Medicine
DX: M54.9 Dorsalgia, unspecified (principal); M79.606 Pain in leg, unspecified
CPT/HCPCS: 72148

== ENCOUNTER 2021-04-29 12:00 | Outpatient (RCR) | payer OTHER, SELFPAY ==
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
--- NOTE | 2021-04-29 12:43 | HP.PTDCSUM_ITS ---
It has been my pleasure to treat MANDA MOODY referred by Dr. Henrique Cadena MD, with the diagnosis of BACK PAIN for a total of 11 visit(s). Discharge Date: 04/29/21 Please see the following information for a summary of their discharge status. Subjective: PATIENT REPORTS SHE IS READY TO CONTINUE ON HER OWN BECAUSE NOW SHE KNOWS WHAT SHE HAS BEEN DOING WRONG FOR 20 YEARS. STATES SHE FEELS COMFORTABLE JOINING A GYM AND PROGRSSING SAFELY ON HER OWN NOW WITH THE INSTRUCTIONS SHE HAS RECEIVED HERE. PATIENT REPORT SHE IS EXCITED ABOUT WHERE SHE IS AT. PATIENT REPORTS SHE ENJOYS HOW SHE FEELS IN THE EVENING AFTER SHE DOES HER EX'S AND SHE SLEEPS BETTER. PATIENT REPORTS BEING HAPPY THAT SHE WAS ABLE TO KEEP UP WITH HER DAUGHTER AND HER 20 YEAR OLD FRIENDS SHOPPING RECENTLY. PATIENT RELATES HER CURRENT PAIN TO ARTHRITIS. STATES SHE DOES NOT EXPECT NOT TO HURT BECAUSE SHE THINKS THAT IS REALISTIC BUT HER FUNCTION HAS IMPROVED AND SHE HAS GOT OUT OF TH ERAPY WHAT SHE WANTED TO. LEFT LOW BACK Pain Intensity (Out of 10): 2 % Improvement: 70 Objective/Function: PATIENT WAS SEEN TODAY FOR RE-ASSESSMENT OF PROGRESS TOWARD THE SET PT GOALS AND THE NEED FOR FURTHER PHYSICAL THERAPY VS READINESS FOR DISCHARGE. ALL GOALS MET. PATIENT IS NOT PAINFREE BUT SHE IS INDEP WITH A HEP AND HER FUNCTION IS INCREASING. UPON EXAM TODAY: Motor deficit: MABEL LE'S GROSSLY 5/5 WITH MMT'ING EXCEPT HIPS GRADED 4/5. Sensory deficit: MABEL LE LIGHT TOUCH SENSATION IS GROSSLY INTACT AND SYMMETRICAL. ROM deficit: TIGHT MABEL GASTROC SOLEUS COMPLEX'S. Dural Signs: NEGATIVE RIGHT LE BUT RIGHT NECK CRAMP WITH TESTING THAT SUBSIDED AFTER A FEW MINUTES. POSITIVE LLE DURAL TEST. Lumbar mvmt loss: flex - NIL. ext - MIN - MILD CENTRAL LBP. R SG - MIN - MILD INCREASE LBP. L SG - MIN - MILD INCREASE LBP. Core strength: POOR. Palpation: MILD TENDERNESS WITH PALPATION OF THE LEFT LOW BACK REGION. OTHER: REVIEWED ALL HOME INSTRUCTIONS AND ENCOURAGED CONTINUED CALF STRETCHING AND STRENGTHENING. Goal 1:: DECREASE C/O LOW BACK AND MABEL LE SX'S. Goal Progress: Goal Met Goal 2:: IMPROVE PERSONAL CARE, LIFTING, WALKING, STANDING, SLEEP, SOCIAL LIFE, TRAVEL AND HOMEMAKING FUNCTION. Goal Progress: Goal Met Goal 3:: INSTRUCT IN PROPHYLAXIS Goal Progress: Goal Met Plan: POSTURE CORRECTION/STRENGTHENING, INSTRUCTION IN APPROPRIATE BODY MECHANICS AND ACTIVITY MODIFICATIONS. DLS STARTING WITH A NEUTRAL SPINE PROGRESSING ROM TOLERATED. MABEL LE ROM, STRETCHING AND STRENGTHENING. HEP INSTRUCTION. If there are questions or concerns regarding this patient's physical therapy, please feel free to call me at [phone]. Thank you for the referral of this patient. Sincerely, Kelin Wade, PT, Cert MDT Balance/Gait/Functional tests - Balance/Special Test Scores Oswestry Low Back Score: 14
== END 2021-04-29 19:00 | disposition home or self-care (01) ==
LOC: PT 12:00
PROVIDERS: PCP Internal Medicine; Referring Provider Anesthesiology Pain Medicine; Visit Provider Anesthesiology Pain Medicine
DX: M54.9 Dorsalgia, unspecified (principal)
CPT/HCPCS: 97110; 97112; 97162; 97164; 97530

== ENCOUNTER → 2021-10-01 | Outpatient (CLI) | payer OTHER, SELFPAY ==
--- NOTE | 2021-10-01 13:56 | RAD_ITS ---
STUDY: X-RAY - LEFT ANKLE REASON FOR EXAM: Female, 46 years old. PAIN TECHNIQUE: 3 view(s) of the ankle. COMPARISON: 04/19/2019 FINDINGS: Normal visualized distal tibia and fibula. Normal medial and lateral malleoli. Mild degenerative changes of the tibiotalar articulation. Normal visualized talus and calcaneus. The visualized subtalar, talonavicular, calcaneocuboid and tarsal articulations are normal. Lateral ankle soft tissue swelling. RAD/Ankle min 3 Views IMPRESSION: No acute fracture or malalignment. Lateral ankle soft tissue swelling. Electronically Signed: Torrey Washington MD ([place]) at 16:05 EDT ,
== END | disposition home or self-care (01) ==
PROVIDERS: PCP Internal Medicine; Referring Provider Internal Medicine; Visit Provider Internal Medicine
DX: M25.572 Pain in left ankle and joints of left foot (principal)
CPT/HCPCS: 73610

== ENCOUNTER → 2021-11-20 | Outpatient (CLI) | payer OTHER, SELFPAY ==
[2021-11-25 20:18] LABS: HPV APTIMA, High Risk Negative (Negative)
== END | disposition home or self-care (01) ==
LOC: LABSPEC 16:26
PROVIDERS: PCP Internal Medicine; Referring Provider Nurse Practitioner Women's Health; Visit Provider Nurse Practitioner Women's Health
DX: Z78.0 Asymptomatic menopausal state (principal)
CPT/HCPCS: 87624; 88175; G0145

== ENCOUNTER → 2021-12-16 | Outpatient (CLI) | payer OTHER, SELFPAY ==
--- NOTE | 2021-12-16 12:10 | BI_ITS ---
MAMMOGRAPHY - BILATERAL SCREENING REASON FOR EXAM: Female, 46 years old. Routine annual screening examination. PERTINENT HISTORY: Non-contributory. TECHNIQUE: Digital bilateral breast baron (3D mammographic acquisition) in the CC and MLO projections. 2-D mediolateral oblique (MLO) and craniocaudad (CC) views of both breasts were obtained. CAD: Full Field Digital Mammography with Computer Added Detection was performed. COMPARISON: Comparison mammogram from 01/12/2014. FINDINGS: Breast Composition: There are scattered areas of fibroglandular density. There are no dominant masses or suspicious calcifications. No other significant abnormalities are identified. There has been no significant change since the prior study. BI/SCRN MAMM (CAD)W/BARON BILAT IMPRESSION: Stable bilateral screening mammogram. Yearly follow-up mammogram recommended. (A) ASSESSMENT CATEGORY: BIRADS Category 1: Negative. A letter regarding these results will be sent to the patient by the facility within 30 days. Approximately 10% of breast cancers are not detected by mammography. A normal mammogram should not delay biopsy of a clinically suspicious abnormality. Electronically Signed: Michael Kearns, at 16:33 EDT ,
== END | disposition home or self-care (01) ==
LOC: OPBI 12:09
PROVIDERS: PCP Internal Medicine; Visit Provider Nurse Practitioner Women's Health
DX: Z12.31 Encounter for screening mammogram for malignant neoplasm of breast (principal)
CPT/HCPCS: 77063; 77067

== ENCOUNTER → 2022-01-07 | Outpatient (CLI) | payer OTHER, SELFPAY ==
--- NOTE | 2022-01-07 | EMB_PTH ---
PATIENT: MANDA MOODY [facility] U#:[id number] AGE/SX: 46/F ROOM: RE01/07/[address]: NOLA Ramirez : 1975 BED: DIS: 01/07/2022 SPEC #: [id number] RECD: 01/07/22 13:07 STATUS: SHANIA REAlfred #: [id number] ASHLEIGH: 01/07/22 00:[address]: Annie Estrada NP DEPT: SURGICAL PATHOLOGY RECD BY: Harvey Lainez ENTERED: 01/07/22 13:07 SP TYPE: ENDOM BX/C YESICA DR: Dr. Nancy Lucas DO Tissues: Endometrium, NOS Procedures: Surgery Specimen Level IV HEADER OPERATION: Endometrial biopsy PRE-OP DIAGNOSIS: Abnormal uterine bleeding TISSUE SUBMITTED: Endometrial biopsy MICROSCOPIC DIAGNOSIS Endometrial biopsy: Weakly proliferative endometrium. IVANIA:chong 01/08/2022 MICROSCOPIC DESCRIPTION Slides are reviewed. GROSS DESCRIPTION Received is one container labeled with the patient's name and not further designated. The specimen consists of multiple fragments of pink hemorrhagic soft tissue that in aggregate measure 2.5 x 1 x 0.2 cm. The specimen is totally submitted in one cassette. / SJ:chong 01/07/2022 TC:4 CPT: [id number]
== END | disposition home or self-care (01) ==
LOC: LABSPEC 11:17
PROVIDERS: PCP Internal Medicine; Visit Provider Nurse Practitioner Women's Health
DX: N93.9 Abnormal uterine and vaginal bleeding, unspecified (principal)
CPT/HCPCS: 88305

== ENCOUNTER → 2022-01-14 | Outpatient (CLI) | payer OTHER, SELFPAY ==
--- NOTE | 2022-01-14 08:07 | US_ITS ---
STUDY: ULTRASOUND OF THE FEMALE PELVIS - COMPLETE REASON FOR EXAM: Female, 46 years old. Abnormal uterine bleeding LMP: 1 year ago. TECHNIQUE: Transabdominal and Transvaginal TECHNICAL QUALITY: Adequate. COMPARISON: None. FINDINGS: The uterus is anteverted and is in a midline position. The uterus measures 10.2 cm x 5 cm x 5.9 cm. There is a Nabothian cyst of the cervix. The endometrium is thickened and measures 4.7 mm in thickness, and is hyperechoic. There is no demonstrated endometrial mass. Heterogeneous appearance of the myometrium although no focal fibroid is seen. This most likely represents fibroid change. There is no demonstrated myometrial mass. I.U.D. - The patient does not have an I.U.D. The right ovary is visualized. The right ovary measures 3.6 cm x 2.5 cm x 1.6 cm. There is no right ovarian cyst or ovarian mass. There is no visualized right adnexal mass or complex lesion. There is normal arterial and normal venous vascularity. The left ovary is visualized. The left ovary measures 2.8 cm x 1.8 cm x 2.0 cm. There is no left ovarian cyst or ovarian mass. There is no visualized left adnexal mass or complex lesion. There is normal arterial and normal venous vascularity. There is no fluid in the cul-de-sac. The pre void volume of the bladder was 417 ml. US/Pelvic (Non ) IMPRESSION: Heterogeneous appearance of the myometrium although no focal fibroid is seen. Endometrial thickening. Electronically Signed: Amarjit Patel MD at 14:18 EDT ,
--- NOTE | 2022-01-14 08:07 | US_ITS ---
STUDY: ULTRASOUND OF THE FEMALE PELVIS - COMPLETE REASON FOR EXAM: Female, 46 years old. Abnormal uterine bleeding LMP: 1 year ago. TECHNIQUE: Transabdominal and Transvaginal TECHNICAL QUALITY: Adequate. COMPARISON: None. FINDINGS: The uterus is anteverted and is in a midline position. The uterus measures 10.2 cm x 5 cm x 5.9 cm. There is a Nabothian cyst of the cervix. The endometrium is thickened and measures 4.7 mm in thickness, and is hyperechoic. There is no demonstrated endometrial mass. Heterogeneous appearance of the myometrium although no focal fibroid is seen. This most likely represents fibroid change. There is no demonstrated myometrial mass. I.U.D. - The patient does not have an I.U.D. The right ovary is visualized. The right ovary measures 3.6 cm x 2.5 cm x 1.6 cm. There is no right ovarian cyst or ovarian mass. There is no visualized right adnexal mass or complex lesion. There is normal arterial and normal venous vascularity. The left ovary is visualized. The left ovary measures 2.8 cm x 1.8 cm x 2.0 cm. There is no left ovarian cyst or ovarian mass. There is no visualized left adnexal mass or complex lesion. There is normal arterial and normal venous vascularity. There is no fluid in the cul-de-sac. The pre void volume of the bladder was 417 ml. US/Transvaginal Non- IMPRESSION: Heterogeneous appearance of the myometrium although no focal fibroid is seen. Endometrial thickening. Electronically Signed: Amarjit Patel MD at 14:18 EDT ,
== END | disposition home or self-care (01) ==
LOC: US 08:02
PROVIDERS: PCP Internal Medicine; Referring Provider Nurse Practitioner Women's Health; Visit Provider Nurse Practitioner Women's Health
DX: N93.9 Abnormal uterine and vaginal bleeding, unspecified (principal)
CPT/HCPCS: 76830; 76856

== ENCOUNTER 2022-03-17 11:13 | Day surgery (SDC) | payer OTHER, SELFPAY ==
[2022-03-17] VITALS (7 sets, daily range): BP systolic 94–145; BP diastolic 60–119; PULSE 61–73; RESP 16–18; TEMP 36.9–37.2; O2SAT 94–100; BMI 38.2
--- NOTE | 2022-03-17 | IMM_PTH ---
PATIENT: MANDA MOODY LOC: EN U#:[id number] AGE/SX: 46/F ROOM: RE03/17/[address]: Dr. Francisco Montana DO : 1975 BED: DIS: 03/17/2022 SPEC #: [id number] RECD: 03/18/22 07:03 STATUS: SHANIA REAlfred #: [id number] ASHLEIGH: 03/17/22 00:[address]: Francisco Montana DEPT: IMMUNOHISTOCHEMISTRY RECD BY: Demarcus Esparza ENTERED: 03/18/22 07:04 SP TYPE: IMMUNO OTHR DR: Dr. Nancy Lucas DO Tissues: Gastric mucous membrane Procedures: H Pylori (initial) PHYSICIAN & [place] [id number] SPECIMEN INFORMATION: Tissue Source: A. Gastric ulcer Clinical Info: GERD Specimen Number: [id number] CPT code: 24045 METHODOLOGY: Deparaffinized sections of prefer/formalin-fixed tissue or PAP/DQ stained slides are incubated with monoclonal/polyclonal antibodies/oligonucleotide probes. Localization is made via biotin free immunoperoxidase method. Appropriate controls are performed and reacted as expected. Results on target cell population are indicated in the following table: RESULTS: ANTIBODY / CLONE RESULT H Pylori (polyclonal) negative These tests were developed and their performance characteristics determined by [facility]. They may not have been cleared or approved by the U.S. Food and Drug Administration. The FDA has determined that such clearance or approval is not necessary. The above immunohistochemical/dualISH markers are ordered and reviewed by the Pathologist. INTERPRETATION: Gastric ulcer biopsy: Negative for Helicobacter pylori organisms. SJ:estefany 03/18/2022
--- NOTE | 2022-03-17 | GASB_PTH ---
PATIENT: MANDA MOODY LOC: EN U#:[id number] AGE/SX: 46/F ROOM: RE03/17/[address]: Dr. Francisco Montana DO : 1975 BED: DIS: 03/17/2022 SPEC #: [id number] RECD: 03/17/22 14:09 STATUS: SHANIA WARREN #: [id number] ASHLEIGH: 03/17/22 00:[address]: Francisco Montana DEPT: SURGICAL PATHOLOGY RECD BY: Harvey Lainez ENTERED: 03/17/22 14:09 SP TYPE: Gastric Bx YESICA DR: Dr. Nancy Lucas DO Tissues: A - Gastric mucous membrane B - Esophageal mucous membrane Procedures: Special Stain Group II Surgery Specimen Level IV Alcian Blue/PAS (control) HEADER OPERATION: EGD ([facility] [place]) PRE-OP DIAGNOSIS: GERD TISSUE SUBMITTED: A. Gastric ulcer biopsy, B. Distal esophagus biopsy MICROSCOPIC DIAGNOSIS A. Gastric ulcer biopsy: Fragments of gastric mucosa with focal ulceration and acute and chronic inflammation. See comment. B. Distal esophagus biopsy: Fragments of gastroesophageal mucosa with chronic inflammation. Intestinal metaplasia (goblet cell metaplasia) not identified. See comment. /IVANIA 03/18/22 COMMENT A: The results of immunohistochemistry for Helicobacter pylori will be reported separately ([id number]). B: Alcian blue/PAS stain with matched control is used in the evaluation of the specimen. MICROSCOPIC DESCRIPTION Slides are reviewed. GROSS DESCRIPTION A. Received is one container labeled with the patient name and designated gastric ulcer. The specimen consists of multiple irregular fragments of light hansen soft tissue that in aggregate measure 1.2 x 0.3 x 0.1 cm. The specimen is totally submitted in one cassette. B. Received is one container labeled with the patient name and designated distal esophagus. The specimen consists of multiple irregular fragments of light hansen soft tissue that in aggregate measure 1.2 x 0.3 x 0.1 cm. The specimen is totally submitted in one cassette. /IVANIA:joaquin 03/17/22 TC: 2 CPT:16705 x2, 38342
--- NOTE | 2022-03-17 11:56 | HP.PCM_ITS ---
History and Physical Date of Admission: 03/17/22 MANDA MOODY, is a 46 F who presents to the office today for needs to schedule EGD.? She has been on medication since the age of 14 for GERD.? She previously took Nexium, now is on omeprazole 40 mg daily.? [facility] did an Esoguard test for Pradhan's esophagus, the test was inconclusive. If she eats late then she might need gaviscon at , but typically omeprazole 40 mg daily is effective. She had colonoscopy 5-7 years ago for blood in stool, unremarkable. Had EGD then too.? No history of Pradhan's.? High protein and vegetable diet, has lost 40 lbs in the past year. Tends to be a bit constipated but no discomfort. No melena or hematochezia.? No nausea, vomiting, dysphagia.? No abdominal pain Comorbidities include fibromyalgia, history of basal cell carcinoma on her nose, restless leg syndrome, asthma, history cholecystectomy, rheumatoid arthritis ROS Const Constitutional: No fatigue ENT ENT: No difficulty swallowing Cardio Cardiology: Positive for leg pain with exertion Gastro GI: Positive for bloating, heartburn and excessive flatus; No abdominal pain, belching, change in bowel habits, change in stool character, coffee ground emesis, constipation, cramping, diarrhea, difficulty swallowing, feeling full early, incontinent of stools, Vomiting blood/hematemesis, Blood in stool, loose stools, Black,tarry stools, nausea/dyspepsia, pain with swallowing, vomiting or other Musc Musculoskeletal: Positive for joint pain, back pain, muscle cramps, muscle weakness, stiffness, Arthritis, restless legs and leg pain with exertion Skin Skin: No yellowing of the eye or itchy eyes Neuro Neurology: Positive for restless legs Psych Psychiatric: No anxiety and No depression Endo Endocrine: No fatigue Aller/Imm Allergy/Immunologic: No itchy eyes Fabrice/Lymp Hematologic/Lymphatic: Positive for easy bruising; No easy bleeding Exam Const General: cooperative, comfortable, well developed and well groomed Nutritional Appearance: obese Eyes General: appearance normal, both eyes and all related structures Resp Effort & Inspection: normal respiratory effort Quality Reporting Tobacco Screening ([facility]) Smoking Status: Former smoker Assessment and Plan Assessment and Plan (1) GERD (gastroesophageal reflux disease): ?Status:?Acute ?Plan - Meera Tillman NP, MANAGER OF BUSINESS-C: 46 yr old female with long hx of GERD, well controlled with PPI. Recent EsoGuard test was indeterminate. We will schedule her for EGD w/ f/u 2 wks later. She declines screening colonoscopy at this time. I have examined the patient and the H&P has been reviewed. There are no clinical changes since date of exam.
[2022-03-17] MEDS: Lactated Ringers 1,000 ML 15 ML IV (12:08)
[2022-03-17 12:09] LABS: Internal QC Validated? YES +Cl - CLEAR BKGD; Pregnancy, Urine Negative Negative
--- NOTE | 2022-03-17 13:07 | OP.EGD_ITS ---
Patient Name: Latia Jeffers Procedure Date: 03/17/2022 12:31 PM Date of : 1975 Age: 46 Procedure: Upper GI endoscopy Indications: Heartburn, Failure to respond to medical treatment Providers: Francisco Montana DO Medicines: Monitored Anesthesia Care Patient Profile: This is a 46 year old female. Refer to note in patient chart for documentation of history and physical. Patient has symptoms of chronic heartburn. Complications: No immediate complications. Procedure: Pre-Anesthesia Assessment: - Prior to the procedure, a History and Physical was performed, and patient medications and allergies were reviewed. The risks and benefits of the procedure and the sedation options and risks were discussed with the patient. All questions were answered and informed consent was obtained. Patient identification and proposed procedure were verified by the physician in the pre-procedure area. Mental Status Examination: alert and oriented. Airway Examination: normal oropharyngeal airway and neck mobility. Respiratory Examination: clear to auscultation. CV Examination: normal. Prophylactic Antibiotics: The patient does not require prophylactic antibiotics. Prior Anticoagulants: The patient has taken no previous anticoagulant or antiplatelet agents. ASA Grade Assessment: II - A patient with mild systemic disease. After reviewing the risks and benefits, the patient was deemed in satisfactory condition to undergo the procedure. The anesthesia plan was to use monitored anesthesia care (MAC). Immediately prior to administration of medications, the patient was re-assessed for adequacy to receive sedatives. The heart rate, respiratory rate, oxygen saturations, blood pressure, adequacy of pulmonary ventilation, and response to care were monitored throughout the procedure. The physical status of the patient was re-assessed after the procedure. After obtaining informed consent, the endoscope was passed under direct vision. Throughout the procedure, the patient's blood pressure, pulse, and oxygen saturations were monitored continuously. The Endoscope was introduced through the mouth, and advanced to the second part of duodenum. The upper GI endoscopy was accomplished without difficulty. The patient tolerated the procedure well. Scope In: 1:20:45 PM Scope Out: 1:24:57 PM Total Procedure Duration Time 0 hours 4 minutes 12 seconds Findings: LA Grade A (one or more mucosal breaks less than 5 mm, not extending between tops of 2 mucosal folds) esophagitis with no bleeding was found 36 to 38 cm from the incisors. Biopsies were taken with a cold forceps for histology. Verification of patient identification for the specimen was done. Estimated blood loss was minimal. A medium-sized hiatal hernia was present. One non-bleeding cratered gastric ulcer with no stigmata of bleeding was found in the gastric body. The lesion was 6 mm in largest dimension. Biopsies were taken with a cold forceps for histology. Verification of patient identification for the specimen was done. Estimated blood loss was minimal. The second portion of the duodenum was normal. Impression: - LA Grade A reflux esophagitis. Biopsied. - Medium-sized hiatal hernia. - Non-bleeding gastric ulcer with no stigmata of bleeding. Biopsied. - Normal second portion of the duodenum. Recommendation: - Discharge patient to home. - Resume previous diet. - Use sucralfate tablets 1 gram PO BID for 2 weeks. Procedure Code(s): --- Professional --- 92390, Esophagogastroduodenoscopy, flexible, transoral; with biopsy, single or multiple CPT copyright 2017 [employer]. All rights reserved. The codes documented in this report are preliminary and upon senior quality methods specialist review may be revised to meet current compliance requirements. Francisco Montana DO 03/17/2022 1:07:00 PM This report has been signed electronically. Number of Addenda: 0 Note Initiated On: 03/17/2022 12:31 PM
--- NOTE | 2022-03-17 13:08 | OP.CCLET_ITS ---
03/17/2022 Nancy Lucas [address] [place] [address] Re : Upper GI endoscopy procedure for Latiajeremias Jeffers Dear Dr. Lucas This procedure was performed on Thursday, March 17, 2022. My impressions and recommendations are as follows: Impressions : - LA Grade A reflux esophagitis. Biopsied. - Medium-sized hiatal hernia. - Non-bleeding gastric ulcer with no stigmata of bleeding. Biopsied. - Normal second portion of the duodenum. Recommendations : - Discharge patient to home. - Resume previous diet. - Use sucralfate tablets 1 gram PO BID for 2 weeks. My findings are described in the full procedure note, which is enclosed. If I can be of further assistance, please feel free to contact me at . Sincerely, Francisco Montana, 03/17/2022 1:07:00 PM This report has been signed electronically.
== END 2022-03-17 14:19 | disposition home or self-care (01) ==
LOC: EN 11:20 → AC 11:20
PROVIDERS: Anesthesiology; PCP Internal Medicine; Referring Provider Internal Medicine; Visit Provider Internal Medicine Gastroenterology
PROC: 0DJ08ZZ Inspection of Upper Intestinal Tract, Via Natural or Artificial Opening Endoscopic (ICD-10-PCS; CPT 43235; principal; 2022-03-17 12:25)
DX: K21.00 Gastro-esophageal reflux disease with esophagitis, without bleeding (principal); K44.9 Diaphragmatic hernia without obstruction or gangrene; K25.3 Acute gastric ulcer without hemorrhage or perforation; E66.9 Obesity, unspecified; Z86.16 Personal history of COVID-19; Z79.899 Other long term (current) drug therapy; Z68.38 Body mass index [BMI] 38.0-38.9, adult; Z87.891 Personal history of nicotine dependence
CPT/HCPCS: 43239; 81025; 88305; 88313; 88342; J7120; J2405

== ENCOUNTER → 2022-09-24 | Outpatient (CLI) | payer OTHER, SELFPAY ==
--- NOTE | 2022-09-24 13:00 | ECHOD_ITS ---
Reason For Study: Abnormal EKG Procedure This was a 2D Doppler, Color Flow transthoracic echocardiogram. Exam performed in department. Left Ventricle Normal LV size. Left ventricular systolic function is normal. The estimated ejection fraction is 65 %. No regional wall motion abnormalities noted. Right Ventricle Normal RV size. Normal systolic function. Atria Normal left atrium. Normal right atrium. Mitral Valve Normal mitral valve. Tricuspid Valve Normal tricuspid valve. Aortic Valve Normal aortic valve. Trisinus/trileaflet aortic valve. Pulmonic Valve Normal pulmonic valve. Great Vessels Normal aortic root. The pulmonary artery is normal size. Normal inferior vena cava. Pericardium/Pleural No pericardial effusion. MMode/2D Measurements & Calculations LVIDd: 4.2 cm IVSd: 0.98 cm LVOT diam: 2.0 cm LVIDs: 2.7 cm LVPWd: 1.0 cm LVOT area: 3.2 cm2 RVDd: 3.1 cm FS: 35.1 % Ao root diam: 3.4 cm LAV(MOD-bp): 30.4 ml LVAd ap4: 23.7 cm2 LAV(MOD-bp) Indexed: 15.5 ml/m2 LVLd ap4: 6.8 cm LAV(MOD-sp2): 35.5 ml EDV(MOD-sp4): 67.0 ml LAV(MOD-sp4): 25.0 ml EDV(sp4-el): 70.0 ml LVAs ap4: 12.4 cm2 LVLs ap4: 5.9 cm ESV(MOD-sp4): 21.9 ml ESV(sp4-el): 22.1 ml EF(MOD-sp4): 67.3 % EF(sp4-el): 68.4 % LVAd ap2: 20.3 cm2 SV(MOD-sp4): 45.1 ml SV(MOD-sp2): 30.5 ml LVLd ap2: 6.9 cm EDV(MOD-sp2): 51.7 ml EDV(sp2-el): 50.6 ml LVAs ap2: 11.9 cm2 LVLs ap2: 6.2 cm ESV(MOD-sp2): 21.2 ml ESV(sp2-el): 19.4 ml EF(MOD-sp2): 59.1 % SV(sp4-el): 47.8 ml LA dimension(2D): 3.2 cm LA A4 area: 12.1 cm2 RA A4 area: 11.2 cm2 Time Measurements MV dec time: 0.26 sec Doppler Measurements & Calculations MV E max jono: 58.8 cm/sec Lat Peak E' Jono: 8.5 cm/sec Med Peak E' Jono: 8.3 cm/sec MV A max jono: 50.2 cm/sec E/E' lat: 6.9 E/E' med: 7.1 MV E/A: 1.2 Ao V2 max: 118.3 cm/sec LV V1 max: 76.0 cm/sec MV dec slope: 222.0 cm/sec2 Ao max P.6 mmHg LV V1 max P.3 mmHg LIO(V,D): 2.1 cm2 PA V2 max: 73.7 cm/sec PA max PG (full): 1.4 mmHg ECHO/Echo Complete Interpretation Summary Normal LV size. Left ventricular systolic function is normal. The estimated ejection fraction is 65 %. Structurally normal valves. Ordering Physician: Deepa Killian Referring Physician: Nancy Lucas M.D. Performed By: Jeri Larkin RDCS
== END | disposition home or self-care (01) ==
PROVIDERS: PCP Internal Medicine; Referring Provider Nurse Practitioner Family; Visit Provider Nurse Practitioner Family
DX: R94.31 Abnormal electrocardiogram [ECG] [EKG] (principal)
CPT/HCPCS: 93306

== ENCOUNTER → 2023-06-10 | Outpatient (CLI) | payer OTHER, SELFPAY ==
--- NOTE | 2023-06-10 14:28 | BI_ITS ---
MAMMOGRAPHY - BILATERAL DIAGNOSTIC REASON FOR EXAM: Female, 47 years old. Palpable lump in the left upper central portion of the left breast. PERTINENT HISTORY: Non-contributory. TECHNIQUE: Digital bilateral breast brandon (3D mammographic acquisition) in the CC and MLO projections. 2-D mediolateral oblique (MLO) and craniocaudad (CC) views of both breasts were obtained. CAD: Full Field Digital Mammography with Computer Added Detection was performed. COMPARISON: Comparison is made with prior study dated December 16, 2021 and January 12, 2014. FINDINGS: Breast Composition: There are scattered areas of fibroglandular density. There are no dominant masses or suspicious calcifications. Stable benign-appearing bilateral axillary lymph nodes. No other significant abnormalities are identified. There has been no significant change since the prior study. BI/DIAG MAMM W/CAD, BILAT IMPRESSION: Stable bilateral diagnostic mammogram. With the patient''s history of a palpable lump in the deep upper central portion of the left breast, correlation with ultrasound is recommended. ASSESSMENT CATEGORY: BIRADS Category 2: Benign. A letter regarding these results will be sent to the patient by the facility within 30 days. Approximately 10% of breast cancers are not detected by mammography. A normal mammogram should not delay biopsy of a clinically suspicious abnormality. Electronically Signed: Amarjit Patel MD at 15:06 EST ,
--- NOTE | 2023-06-10 14:28 | US_ITS ---
STUDY: ULTRASOUND BREAST - LEFT REASON FOR EXAM: Female, 47 years old. Palpable lump left breast. TECHNIQUE: Axial and longitudinal images of the LEFT breast were performed with a high resolution ultrasound transducer. # OF IMAGES: 21 COMPARISON: Comparison is made with prior mammogram done earlier today. FINDINGS: LEFT Breast: The upper outer quadrant of the breast was examined with ultrasound. There is evidence of a probable glandular tissue. No solid or cystic mass lesion is seen. US/Breast Limited Unilateral IMPRESSION: Findings suggestive of the asymmetrical fibroglandular tissue. ASSESSMENT CATEGORY: BIRADS Category 2: Benign. A letter regarding these results will be sent to the patient by the facility within 30 days. Electronically Signed: Amarjit Patel MD at 15:36 EST ,
== END | disposition home or self-care (01) ==
PROVIDERS: PCP Internal Medicine; Visit Provider Nurse Practitioner Women's Health
DX: N63.22 Unspecified lump in the left breast, upper inner quadrant (principal)
CPT/HCPCS: 76642; 77062; 77066; G0279

== ENCOUNTER → 2023-10-12 | Outpatient (CLI) | payer OTHER, SELFPAY ==
--- NOTE | 2023-10-12 10:07 | US_ITS ---
STUDY: ULTRASOUND OF THE FEMALE PELVIS - COMPLETE REASON FOR EXAM: Female, 48 years old. Post Menopausal Bleeding LMP: 18 months ago. TECHNIQUE: Transabdominal and Transvaginal TECHNICAL QUALITY: Adequate. COMPARISON: Comparison is made with prior examination dated January 14, 2022. FINDINGS: The uterus is anteverted and is in a midline position. The uterus measures 9.8 cm x 5.8 cm x 4.6 cm. There is a Nabothian cyst of the cervix. The endometrium is thickened and measures 5.5 mm in thickness, and is hyperechoic. There is no demonstrated endometrial mass. Heterogeneous appearance of the myometrium with a 1.5 cm x 1.5 cm x 1.2 cm uterine fibroid. I.U.D. - The patient does not have an I.U.D. The right ovary is visualized. The right ovary measures 1.9 cm x 2.1 cm x 1.7 cm. There is no right ovarian cyst or ovarian mass. There is no visualized right adnexal mass or complex lesion. There is normal arterial and normal venous vascularity. The left ovary is visualized. The left ovary measures 2.2 cm x 1.8 cm x 2.4 cm. There is no left ovarian cyst or ovarian mass. There is no visualized left adnexal mass or complex lesion. There is normal arterial and normal venous vascularity. There is no fluid in the cul-de-sac. The pre void volume of the bladder was 376 ml. US/Pelvic w/ Transvaginal IMPRESSION: Mild thickening of the endometrium. Fibroid uterus. Electronically Signed: Amarjit Patel MD at 13:04 EDT ,
== END | disposition home or self-care (01) ==
PROVIDERS: PCP Internal Medicine; Referring Provider Nurse Practitioner Women's Health; Visit Provider Nurse Practitioner Women's Health
DX: N95.0 Postmenopausal bleeding (principal)
CPT/HCPCS: 76830; 76856

== ENCOUNTER → 2023-10-30 | Outpatient (CLI) | payer OTHER, SELFPAY ==
--- NOTE | 2023-10-29 | EMB_PTH ---
PATIENT: MANDA MOODY LOC: MAXIM U#:[id number] AGE/SX: 48/F ROOM: RE10/30/[address]: NOLA Ramirez : 1975 BED: DIS: 10/30/2023 SPEC #: [id number] RECD: 10/30/23 13:53 STATUS: SHANIA REAlfred #: [id number] ASHLEIGH: 10/29/23 00:[address]: Annie Estrada NP DEPT: SURGICAL PATHOLOGY RECD BY: Cruz Leyva ENTERED: 10/30/23 13:53 SP TYPE: ENDOM BX/C YESICA DR: Dr. Nancy Lucas DO Tissues: Endometrium, NOS Procedures: Surgery Specimen Level IV HEADER OPERATION: Endometrial biopsy PRE-OP DIAGNOSIS: Abnormal uterine bleeding TISSUE SUBMITTED: Endometrial lining MICROSCOPIC DIAGNOSIS Endometrium, biopsy: Proliferative endometrium with minimal disorder. AM/ 11/02/2023 MICROSCOPIC DESCRIPTION Slides are reviewed. GROSS DESCRIPTION Received is one container labeled with the patient's name and not further designated. The specimen consists of multiple irregular fragments of brown soft tissue mixed with mucoid tissue that in aggregate measure 3.0 x 2.0 x 0.2 cm. The specimen is totally submitted in one cassette. IVANIA/ 10/30/2023 TC:5 CPT:43505
== END | disposition home or self-care (01) ==
LOC: LABSPEC 13:51
PROVIDERS: PCP Internal Medicine; Visit Provider Nurse Practitioner Women's Health
DX: N93.9 Abnormal uterine and vaginal bleeding, unspecified (principal)
CPT/HCPCS: 88305

== ENCOUNTER 2024-02-02 11:57 | Day surgery (SDC) | payer OTHER, SELFPAY ==
--- NOTE | 2024-01-28 09:11 | EKG12_ITS ---
Test Reason : PRE OP Blood Pressure : / mmHG Vent. Rate : 079 BPM Atrial Rate : 079 BPM P-R Int : 128 ms QRS Dur : 086 ms QT Int : 376 ms P-R-T Axes : 024 023 030 degrees QTc Int : 431 ms Normal sinus rhythm Low voltage QRS Borderline ECG Confirmed by Silverio Worley ([id number]), department editor CARLOS MARY ([id number]) on 01/29/2024 6:01:44 AM Referred By: Yaquelin Mathew Confirmed By:Silverio Worley
[2024-01-28 09:51] LABS: Hematocrit 44.5 % (37-47); Hemoglobin 14.3 g/dL (12.0-15.0); Mean Corp Hgb Conc 32.1 g/dL (32-36); Mean Corpuscular Hgb 28.1 pg (27.0-32.0); Mean Corpuscular Volume 87.4 fL (81-99); Mean Platelet Vol. 10.8 fl (6.2-12.0); Platelet Count 278 K/mm3 (150-450); RBC Distribution Width SD 41.3 fl (35.1-43.9); Red Blood Count 5.09 M/mm3 (4.2-5.4); White Blood Count 7.2 K/mm3 (4.4-11.0)
[2024-01-28 10:37] LABS: ALB/GLOB Ratio 1.3 RATIO (0.9-2.4); AST(SGOT) 29 U/L (15-37); Alanine Aminotransfer ALT/SGPT 28 U/L (13-56); Albumin, Serum 4.1 g/dL (3.2-5.0); Alkaline Phosphatase 91 U/L (45-117); Anion Gap 3 (5-15); BUN 11 mg/dL (7-18); BUN/Creat Ratio 12.1 RATIO (10-20); Calcium,Total 9.1 mg/dL (8.5-10.1); Chloride 105 mmol/L (98-107); Creatinine, Serum 0.91 mg/dL (0.55-1.02); EST Glomerular Filtration Rate 70 mL/min (>60); Est Glom Filt Rate - Afr Amer 84 mL/min (>60); Globulin 3.1 g/dL (2.2-4.2); Glucose 95 mg/dL (74-106); Potassium 4.8 mmol/L (3.5-5.1); Protein, Total 7.2 g/dL (6.4-8.2); Sodium Level 137 mmol/L (136-145)
[2024-02-02] VITALS (7 sets, daily range): BP systolic 95–119; BP diastolic 36–85; PULSE 60–70; RESP 16–18; TEMP 36.1–36.9; O2SAT 94–98; BMI 38.1
--- NOTE | 2024-02-02 07:37 | PCM.HP.BLA ---
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 Is patient in pain?: No Allergies Environmental Allergies: Uncoded (seasonal) Allergy (Verified 01/22/24 09:58) Othercodeine Adverse Reaction (Severe, Verified 01/22/24 09:58) itchy, nausea Medications ?Medication ?Instructions ?Recorded ?Confirmed ?Type omeprazole 40 mg capsule,delayed 40 mg PO QHS #90 caps 03/17/19 01/22/24 History release albuterol sulfate 90 mcg/actuation 2 puff IH Q4H PRN SHORTNESS OF 03/14/20 01/22/24 Rx aerosol inhaler BREATH ##1 ascorbic acid 1,000 1,000 mg PO DAILY 06/21/20 01/22/24 History oc-vmdukcanvauz-wcbdxfet powder effervescent pack fluticasone propionate 50 2 spray NASAL DAILY 06/21/20 01/22/24 History mcg/actuation nasal spray,suspension duloxetine 30 mg capsule,delayed 30 mg PO DAILY 08/13/21 01/22/24 History release meloxicam 15 mg tablet 15 mg PO DAILY 08/13/21 01/22/24 History cetirizine 10 mg tablet (Zyrtec) 10 mg PO DAILY 12/25/21 01/22/24 History nortriptyline 10 mg capsule 10 mg PO QDAY 01/22/24 01/22/24 History progesterone micronized 100 mg 100 mg PO .COMPLEX 01/22/24 History capsule (Prometrium) Is last menstrual period known: No Post menopausal: Yes Patient : No : No COUNTS INCLUDE 234 BEDS AT THE [facility] Medical History (Updated 01/22/24 @ 10:[address] Yaquelin Mathew MD) DUB (dysfunctional uterine bleeding) Wears glasses Cancer Arthritis Anemia Injury of back Injury of head and neck Syncope Gastric reflux Former smoker Asthma History of edema GERD (gastroesophageal reflux disease) Hx of basal cell carcinoma Gastroenteritis Vomiting and diarrhea RLS (restless legs syndrome) Sleep disorder Neuropathy Blurred vision Unspecified asthma with (acute) exacerbation Mouth sores Acid reflux Low back pain Fibromyalgia Shortness of breath at rest Pneumonia due to COVID-19 virus COVID-19 Surgical History Hx of knee surgery Hx of surgical procedure Hx of cholecystectomy History of delivery H/O rhinoplasty Social History household members: spouse current occupational status: unemployed Smoking Status: Former smoker alcohol intake: never substance use type: does not use diet: other what type of physical activity do you participate in: walking and yoga frequency: daily seatbelt use: always do you feel safe at home: Yes additional social history: - [place] [facility] SURGERY CONSULT / rs from 01/14 Details: MANDA MOODY is a 48 year old who presents for opinion on proliferative enodmetrium. she had postmenopausal bleeding a year ago, she has taken cyclic prometrium twice with no bleeding response, is postmenopausal. she never took for than 2 months of progesterone. she took some hormone replacement a year ago but just for a month and then stopped. she is handling the menopause transition fairly well. History 7 Elective abortions Hx Para Spontaneous abortions 2 Hx # Term Pregnancies Ectopic pregnancies Hx # Pregnancies Multiple births # of living children 5 Past Pregnancies Del. Date Name GA/Weeks Outcome Route Bth Weight Infant Gen Labor Lgth Anesthesia Del Locatn Provider FOB Unknown Jeri 1989 Unknown Diana 1992 Unknown Regine 1995 Unknown Consuelo 1998 Unknown Sohail 1998 ROS Const Constitutional: Denies fatigue, weight gain or weight loss ENT ENT: Reports system reviewed and no additional complaints, except as documented Cardio Card: Denies chest pain Resp Resp: Denies cough or dyspnea GI GI: Reports as per HPI; Denies abdominal pain, constipation, nausea or vomiting : Denies nipple discharge, urinary frequency, urinary incontinence, urinary hesitancy, urinary urgency, vaginal discharge, vaginal dryness, vaginal odor or vaginal pruritus Musc Musc: Reports arthralgias and back pain; Denies muscle weakness Skin Skin/Breast: Denies alopecia, change in hair, dry skin, breast mass, breast pain, breast skin changes or nipple discharge Neuro Neuro: Reports system reviewed and no additional complaints, except as documented Psych Psych: Reports system reviewed and no additional complaints, except as documented Endo Endo: Denies cold intolerance, excessive sweating, heat intolerance or polydipsia Fabrice/Lymph Hematologic/Lymphatic: Denies easy bleeding, Denies easy bruising and Denies lymphadenopathy Exam Const General: cooperative, healthy appearing, comfortable and no acute distress Orientation: alert [facility] Head: normal to inspection and normocephalic Ears: hearing grossly normal bilaterally and external ears normal Nose: external nose normal and nares normal Face and sinus: normal facial exam Neck Neck: normal visual inspection and no lymphadenopathy Thyroid: thyroid normal Chest Chest palpation & inspection: normal inspection of the chest Resp Effort & Inspection: normal respiratory effort Auscultation: clear to auscultation bilaterally Cardio Rate: regular rate Rhythm: regular rhythm Heart Sounds: S1 normal and S2 normal GI Inspection: normal to inspection and non-distended Palpation: soft and no hepatosplenomegaly Musc Other: gross motor intact no deficits, full bilateral strength Skin General: no rashes or lesions noted Neuro General: patient alert, patient awake, moves all extremities and no focal motor deficits Motor: muscle tone normal throughout Extrem General: normal to inspection and pedal edema present Psych Appearance: grossly normal Mental Status: mental status grossly normal Affect: normal affect Speech and Movement: speech and movement normal Coding Level of Care Code Off vis,est,level 4 Diagnoses PMB (postmenopausal bleeding) N95.0 Climacteric N95.1 Assessment and Plan Assessment and Plan (1) PMB (postmenopausal bleeding): Status: Acute Comment: US 5mm lining and EMB proliferative. plan d and c hysteroscopy (2) Climacteric: Status: Acute Comment: declines intervention at this time Plan After discussing the patient's diagnosis and treatment plan options, patient wishes to proceed with surgical management. I have discussed with the patient the risks, benefits, and alternatives of the procedure which include but are not limited to risks of anesthesia, bleeding, infection, possible damage to bowel, bladder, or surrounding vasculature which could lead to additional surgery to evaluate any complications. Patient agrees to procedure and wishes to proceed. ACOG/uptodate references given for additional information regarding procedure. UPDATE- I have seen the patient and performed any clinically relevant updates to the history and physical exam. Yaquelin Mathew MD
[2024-02-02] MEDS: Lactated Ringers 1,000 ML 15 ML IV (12:23)
--- NOTE | 2024-02-02 13:40 | EMB_PTH ---
PATIENT: MAN[place] [facility] [id number] AGE/SX: 48/F ROOM: RE02/02/[address]: Dr. Yaquelin Mathew MD : 1975 BED: DIS: 02/02/2024 SPEC #: [id number] RECD: 02/02/24 18:13 STATUS: SHANIA WARREN #: [id number] ASHLEIGH: 02/02/24 13:[address]: Yaquelin Mathew DEPT: SURGICAL PATHOLOGY RECD BY: Demarcus Esparza ENTERED: 02/03/24 10:17 SP TYPE: ENDOM BX/C OTHR DR: Dr. Nancy Lucas DO Tissues: Endometrium, NOS Procedures: Surgery Specimen Level IV HEADER OPERATION: Hysteroscopy, D&C PRE-OP DIAGNOSIS: Post menopausal bleeding, climacteric TISSUE SUBMITTED: Endometrial curettings MICROSCOPIC DIAGNOSIS Endometrial curettings: Fragments of weakly proliferative endometrium. Fragments of benign endo and ectocervical epithelium, blood and mucous. 02/04/2024 MICROSCOPIC DESCRIPTION Slides are reviewed. GROSS DESCRIPTION Received in fixative is one container labeled with the patient's name and designated Endometrial curettings. The specimen consists of multiple fragments of hemorrhagic soft tissue mixed with mucoid tissue that in aggregate measure 3.0 x 2.5 x 0.3 cm. The specimen is totally submitted in one cassette. 02/03/2024 TC:4 CPT:82163
--- NOTE | 2024-02-02 15:16 | DCINST_ITS ---
Discharge Instructions Diet Discharge Diet: No restrictions Activity Discharge Activity: Return to Normal Activity, May Shower and May Take a Tub Bath (after 1 week) May resume sexual activity in: 1-2 weeks Weight Bearing Status: Weight bearing as tolerated Lifting Restrictions: none Dressing / Incision Call your doctor if you observe: Fever of 101 or Higher, Using more than 1 pad per hour, Shortness of breath and Uncontrolled pain Follow Up Care Please Follow Up With: Yaquelin Mathew MD When: Call [phone] to schedule appointment. Test Results: Test results from this visit will be discussed in further detail at your follow- up appointment, if applicable. Discharge Plan Admission Attending Provider: Yaquelin Mathew Primary Care Provider: Nancy Lucas Instructions Print Language: [place] Discharge Orders/Prescriptions Prescriptions: No Action omeprazole 40 mg capsule,delayed release(DR/EC) 40 mg PO QHS Qty: 90 Patient Comments: TAKE 1 CAPSULE BY MOUTH EVERY DAY duloxetine 30 mg capsule,delayed release(DR/EC) 30 mg PO DAILY progesterone micronized [Prometrium] 100 mg capsule 100 mg PO .COMPLEX Rx Instructions: 100 mg orally QHS first 13 days each month; albuterol sulfate 1 PUFF inhaler 2 puff IH Q4H PRN (Reason: SHORTNESS OF BREATH) Qty: 1 0RF Patient Comments: ONLY USES WHEN HAS COLD fluticasone propionate 1 SPRAY spray,suspension 2 spray NASAL DAILY cetirizine [Zyrtec] 10 mg Tablet 10 mg PO DAILY multivitamin [Daily Multi-Vitamin] Tablet 1 tab PO DAILY Lubricant Eye (PG-PEG 400) 0.4-0.3 % drops 1 drp EACH EYE DAILY PRN (Reason: dry eye(s)) Referrals / Follow Up: Nancy Lucas DO [Primary Care Provider] - Disposition Disposition (needs filled in before D/C Order can be placed): Home, Self Care
--- NOTE | 2024-02-02 15:16 | OP.PCM_ITS ---
Problems Associated Problem List Diagnoses (1) PMB (postmenopausal bleeding): Report of Operation Date of Procedure: 02/02/24 Pre-Operative Diagnosis: see problem list Post-Operative Diagnosis: same Surgery/Procedure Performed:: D&C hysteroscopy Description of Surgical Findings:: irregular lining no polyps Surgeon: Yaquelin Mathew mini lab operator: None Type of Anesthesia: Local MAC Special Medications: none Specimen's removed: EMC Drains: none Estimated Blood Loss (mL): 50 Fluids Replaced: crystalloid Description of Procedure: Patient was prepped and draped in a normal sterile fashion under MAC anesthesia. A weighted speculum was placed in the vagina and the anterior lip of the cervix was grasped with a single-tooth tenaculum. A paracervical block was placed with 1% lidocaine. Cervix was progressively dilated to allow passage of a 5 mm hysteroscope. The lining was fully visualized and noted to have irregular lining no polyps . Uterine sounded to 8 cm. Curettage was performed and tissue removed , sent to pathology. All instruments were removed from the vagina and excellent hemostasis was noted. Patient was awoken and taken to recovery in stable condition. Grafts/Implants Used: none Procedure Start Time: 16:03 Procedure Stop Time: 16:08 Complications none Admit VTE Documentation VTE Present on Admission: No VTE Mechan Device Prophylaxis: SCD's Multi Select Codes Urinary/Genital Urinary/Genital CPT Codes: 64106 Hysteroscopy,EMC, Polypectomy
--- NOTE | 2024-02-02 15:18 | PRE.ANES_ITS ---
ASA Classification* ASA Classification ASA Classification: 2 Assessment & Plan Anesthesia* Anesthesia Assessment Anesthesia Assessment: Discussed sedation and/or anesthesia options, risks, benefits, and alternatives with patient/parents/legal guardian/POA. Questions invited. The patient/parents/legal guardian/POA seems to understand and agrees to proceed with anesthesia plan. Reviewed the physical assessment, medical history, allergy history and patient home medications list prior to surgery/procedure/anesthetic and documented any changes. Performed airway and anesthesia risk assessments. Anesthesia Type Anesthesia Type: MAC History Source History Obtained from:: Patient and Chart Anesthesia Focused Assessment* Temperature: 98.4 F Pulse Rate: 70 Blood Pressure: 119/85 Respiratory Rate: 18 Pulse Ox: 98 Oxygen Delivery Method: Room Air Airway Assessment Mouth opens: >3 cm Mallampati Score: I Teeth Condition: Chipped/Broken (Patient has chipped and broken teeth right lower molars.) and Missing (Patient has couple missing teeth right lower molars. ) Neck Range of motion (ROM): Full ROM Focused Labs Anesthesia Preop lab: CBC WBC 7.2 K/mm3 (4.4-11.0) 01/28/24 09:33 RBC 5.09 M/mm3 (4.2-5.4) 01/28/24 09:33 Hgb 14.3 g/dL (12.0-15.0) 01/28/24 09:33 Hct 44.5 % (37-47) 01/28/24 09:33 Plt Count 278 K/mm3 (150-450) 01/28/24 09:33 CHEMISTRY Potassium 4.8 mmol/L (3.5-5.1) 01/28/24 09:33 Sodium 137 mmol/L (136-145) 01/28/24 09:33 BUN 11 mg/dL (7-18) 01/28/24 09:33 Creatinine 0.91 mg/dL (0.55-1.02) 01/28/24 09:33 Glucose 95 mg/dL (74-106) 01/28/24 09:33 COAG Urine Test Negative Negative 03/17/22 11:50 Tst Clinic Negative 10/29/23 11:50 Pre-Assessment Diagnosis/Proposed Procedure Planned Operative Procedure(s): Hysteroscopy,Dilation and Curettage Anesthesia History 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 When Was Last Pacemaker Check QUESTION #4 FULL TEXT: You/Your Family Experience fever (hyperthermia) with Anesthesia Last Oral Intake Last Oral intake: Last Oral Intake NPO since 00:00 02/02/24 12:24 Meds taken in AM with sips of Yes 02/02/24 12:24 water? Meds patient instructed to take am of surgery PONV PONV - licensed funeral director: PONV - licensed funeral director Female Yes 01/27/24 14:17 HX of Motion Sickness Yes 01/27/24 14:17 HX of N/V After Surgery No 01/27/24 14:17 Non-Smoker Yes 01/27/24 14:17 Duration of Surgery greater No 01/27/24 14:17 than 60 minutes Number of Risk Factors 3 01/27/24 14:17 PONV Score Moderate Risk 01/27/24 14:17 Height & Weight Height & Weight: Anesthesia: Height & Weight Height 5 ft 2 in 02/02/24 12:24 Weight: 94.529 kg 02/02/24 12:24 Body Mass Index (BMI) 38.1 02/02/24 12:24 Respiratory Assessment Respiratory Assessment - licensed funeral director: Respiratory Tract Infection Hx - licensed funeral director Hx Respiratory Tract Infection No 01/27/24 14:17 STOP Sleep Apnea STOP Sleep Apnea - licensed funeral director: STOP Sleep Apnea - licensed funeral director Hx Hypertension No 01/27/24 14:17 Hx Sleep Apnea No 01/27/24 14:17 CPAP BIPAP Do you snore loudly (louder No 01/27/24 14:17 than talking or can be heard Do you often feel tired/ No 01/27/24 14:17 fatigued/ sleepy during daytime? Has anyone observed you stop No 01/27/24 14:17 breathing during sleep? STOP Results Negative 01/27/24 14:17 QUESTION #5 FULL TEXT : Do you snore loudly (louder than talking or can be heard through closed doors)? Tobacco Use History Tobacco Use History - licensed funeral director: Tobacco Use History - licensed funeral director Tobacco Use Smoking Status Former smoker 01/27/24 14:17 Hx Tobacco Use No 01/27/24 14:17 Years Smoking Packs Smoked per Day Smoking Cessation Date was No - quit smoking greater 01/27/24 14:17 within the last 15 years than 15 years ago Hx Smoking Cessation Date 05/04/89 01/27/24 14:17 Hx Smoking Cessation Counseling Hematologic Medial History Hematologic Hx - licensed funeral director: Hematologic Medical Hx - manager presentation Hx of Blood Transfusion Yes 01/27/24 14:17 Hx of Transfusion in last 3 No 01/27/24 14:17 Months Date of Last Transfusion (if within last 3 months) Ever experience any problems No 01/27/24 14:17 with transfusion(s)? Specify any problems Hx of Preganancy in last 3 No 01/27/24 14:17 Months Nurse Filling Out Transfusion VCHRISTIN 01/27/24 14:17 & Questions: Date: 01/27/24 01/27/24 14:17 Time: 14:18 01/27/24 14:17 Patient unable to answer at this time (ie. confused, unrespo /Reproduction History /Reproductive History - licensed funeral director: /Reproductive Hx- licensed funeral director Hx Now No 01/27/24 14:17 Gestational Age (in weeks): EDC: Hx Hx Para Hx Section SAB No 01/27/24 14:17 Active Medications Active Medications: Current Medications Generic Name Dose Route Start Last Admin Trade Name Freq PRN Reason Stop Dose Admin Hydrocodone Bitart/Acetaminophen 1 - 2 tablet 02/02/24 15:16 Hydrocodone Bitartrate/Apap 5/325 Tablet PO Q6H PRN PRN Pain Score 1-5 Lactated Ringer's 1,000 mls @ 15 mls/hr 02/02/24 12:00 02/02/24 12:23 IV 15 mls/hr .Q48H NIEVES Administration Ondansetron HCl 4 mg 02/02/24 15:16 Ondansetron 4 Mg/2 Ml Vial IM X1 PRN NAUSEA PFSH Medical History (Updated 01/27/24 @ 14:16 by Megan Diaz) TMJ arthritis History of echocardiogram DUB (dysfunctional uterine bleeding) Wears glasses Cancer Arthritis Anemia Injury of back Injury of head and neck Syncope Gastric reflux Former smoker Asthma History of edema GERD (gastroesophageal reflux disease) Hx of basal cell carcinoma Gastroenteritis Vomiting and diarrhea RLS (restless legs syndrome) Sleep disorder Neuropathy Blurred vision Unspecified asthma with (acute) exacerbation Mouth sores Acid reflux Low back pain Fibromyalgia Shortness of breath at rest Pneumonia due to COVID-19 virus COVID-19 Home Medications ?Medication ?Instructions ?Recorded ?Last Taken ?Type omeprazole 40 mg capsule,delayed 40 mg PO QHS #90 caps 03/17/19 02/01/24 History release albuterol sulfate 90 mcg/actuation 2 puff IH Q4H PRN SHORTNESS OF 03/14/20 Unknown Rx aerosol inhaler BREATH ##1 fluticasone propionate 50 2 spray NASAL DAILY 06/21/20 02/01/24 History mcg/actuation nasal spray,suspension duloxetine 30 mg capsule,delayed 30 mg PO DAILY 08/13/21 02/01/24 History release cetirizine 10 mg tablet (Zyrtec) 10 mg PO DAILY 12/25/21 02/01/24 History progesterone micronized 100 mg 100 mg PO .COMPLEX 01/22/24 01/14/24 History capsule (Prometrium) multivitamin (Daily Multi-Vitamin 1 tab PO DAILY 01/27/24 02/01/24 History tablet) peg 400-propylene glycol 0.4 %-0.3 1 drp EACH EYE DAILY PRN dry eye(s) 01/27/24 02/01/24 History % eye drops (Lubricant Eye (PG-PEG 400)) Allergy/AdvReac Type Severity Reaction Status Date / Time Environmental Allergies: Allergy Other Verified 01/27/24 14:06 Uncoded (seasonal) codeine AdvReac Severe itchy, Verified 01/27/24 14:06 nausea Surgical History (Updated 01/27/24 @ 14:16 by Megan Diaz) History of esophagogastroduodenoscopy (EGD) Hx of knee surgery Hx of surgical procedure Hx of cholecystectomy History of delivery H/O rhinoplasty Social History household members: spouse current occupational status: unemployed Smoking Status: Former smoker alcohol intake: never substance use type: does not use diet: other what type of physical activity do you participate in: walking and yoga frequency: daily seatbelt use: always do you feel safe at home: Yes additional social history: brian - [place] Review of Systems (Anesthesia) ROS Narrative System reviewed and no additional complaints, except as documented.
[2024-02-02] MEDS: Lidocaine 1% (20 ml mdv) 20 ML Vial (16:03)
--- NOTE | 2024-02-02 16:18 | PCM.POST.ANE ---
Anesthesia: Postop Eval I Current Vital Signs Temperature: 97 F Pulse Rate: 61 Blood Pressure: 104/36 Respiratory Rate: 18 Pulse Ox: 94 Assessment Airway patent: Yes Spontaneous unlabored respirations: Yes nausea: No Vomiting: No Anesthesia Complication: No Fluid Hydration Crystalloid volume administer (ml): 600 Total IV fluid infused: 600 Progress Note Anesthesia document: Postop Eval 1 completed: Yes
--- NOTE | 2024-02-02 16:54 | POSTOPAN2_ITS ---
Anesthesia Postop Eval I Sum Postop Eval Completion status Anesthesia document: Postop Eval 1 completed: Yes Anesthesia Postop Eval I Summary Anesthesia Postop Eval I Summary: Anesthesia Postop Eval I: Assessment Summary Airway patent Yes 02/02/24 16:18 TEAM SPORTS SALES [email or web address].[email or web address] Spontaneous unlabored Yes 02/02/24 16:18 TEAM SPORTS SALES [email or web address].CSIR respirations Mental status nausea No 02/02/24 16:18 TEAM SPORTS SALES ASSOCIATE.CSIR Vomiting No 02/02/24 16:18 TEAM SPORTS SALES [email or web address].CSIR Anesthesia Postop Eval I: Fluid Summary Crystalloid volume administer 600 02/02/24 16:18 TEAM SPORTS SALES ASSOCIATE.CSIR (ml) Colloids volume administered ( ml) Blood Product volume administered (ml) Total IV fluid infused 600 02/02/24 16:18 TEAM SPORTS SALES [email or web address].CSIR Anesthesia Postop Eval I: Summary Notes Anesthesia Complication No 02/02/24 16:18 TEAM SPORTS SALES [email or web address].CSIR Anesthesia Complication Comment: Post-operative progress note Anesthesia: Postop Eval II Evaluation Mental status: Awake and Calm Pain Level: 1 nausea: No Vomiting: No Complications Anesthesia Complication: No
--- NOTE | 2024-02-02 16:54 | PCM.POSTANE2 ---
Anesthesia Postop Eval I Sum Postop Eval Completion status Anesthesia document: Postop Eval 1 completed: Yes Anesthesia Postop Eval I Summary Anesthesia Postop Eval I Summary: Anesthesia Postop Eval I: Assessment Summary Airway patent Yes 02/02/24 16:18 MAINTENANCE PERSON.CSIR Spontaneous unlabored Yes 02/02/24 16:18 MAINTENANCE PERSON.CSIR respirations Mental status nausea No 02/02/24 16:18 MAINTENANCE PERSON.CSIR Vomiting No 02/02/24 16:18 MAINTENANCE PERSON.CSIR Anesthesia Postop Eval I: Fluid Summary Crystalloid volume administer 600 02/02/24 16:18 MAINTENANCE PERSON.CSIR (ml) Colloids volume administered ( ml) Blood Product volume administered (ml) Total IV fluid infused 600 02/02/24 16:18 MAINTENANCE PERSON.CSIR Anesthesia Postop Eval I: Summary Notes Anesthesia Complication No 02/02/24 16:18 MAINTENANCE PERSON.CSIR Anesthesia Complication Comment: Post-operative progress note Anesthesia: Postop Eval II Evaluation Mental status: Awake and Calm Pain Level: 1 nausea: No Vomiting: No Complications Anesthesia Complication: No
== END 2024-02-02 17:11 | disposition home or self-care (01) ==
LOC: SDC 11:58 → AC 12:00
PROVIDERS: PCP Internal Medicine; Referring Provider Obstetrics & Gynecology; Visit Provider Obstetrics & Gynecology
PROC: 0UDB8ZZ Extraction of Endometrium, Via Natural or Artificial Opening Endoscopic (ICD-10-PCS; CPT 58558; principal; 2024-02-02 13:30)
DX: N95.0 Postmenopausal bleeding (principal); Z86.16 Personal history of COVID-19; M79.7 Fibromyalgia; Z87.891 Personal history of nicotine dependence; Z90.49 Acquired absence of other specified parts of digestive tract; Z85.828 Personal history of other malignant neoplasm of skin; J45.909 Unspecified asthma, uncomplicated
CPT/HCPCS: 58558; 00952; 36415; 80053; 85027; 86850; 86900; 86901; 88305; 93005; J7120; J2405

== ENCOUNTER → 2024-03-01 | Outpatient (CLI) | payer OTHER, SELFPAY ==
--- NOTE | 2024-03-01 07:01 | CT_ITS ---
STUDY: CT ABDOMEN AND PELVIS WITH CONTRAST - URINARY TRACT REASON FOR EXAM: Female, 48 years old. R/O Diverticulitis/abscess. Abd pain RADIATION DOSAGE (If Supplied By Facility): CTDIvol = ( 12.92 ) mGy, DLP = ( 1159.83 ) mGycm TECHNIQUE: Oral and amp; IV Readi-CAT and amp; 100mL Isovue-300 was administered. Transaxial images were obtained from the dome of the diaphragm to the symphysis pubis subsequent to intravenous contrast administration. Multiplanar coronal and sagittal images were reformatted. The protocol utilizes one or more of the following dose reduction techniques: automated exposure control, adjustment of mA and/or kV according to patient size,and/or use of iterative reconstruction technique. COMPARISON: Prior study dated: Pelvic ultrasound dated October 12, 2023 FINDINGS: There is minimal left basilar atelectasis and/or scarring. The visualized portions of the heart are within normal limits. Normal liver. There are surgical clips in the gallbladder fossa consistent with a prior cholecystectomy. Normal spleen. Normal pancreas. Normal bilateral adrenal glands. There is a small hiatal hernia. Normal small intestine. There are a few scattered diverticula arising from the colon. The appendix is visualized and appears normal. Normal abdominal aorta. No retroperitoneal adenopathy. Normal right kidney. Within the mid pole of the left kidney there is an ill-defined low-attenuation focus involving the corticomedullary region with an adjacent mild stranding. Normal urinary bladder. Normal abdominal wall. Normal osseous structures. CT/Abdomen/Pelvis WITH Contrast IMPRESSION: Ill-defined low-attenuation focus within the left kidney concerning for pyelonephritis. Colonic diverticulosis. Hiatal hernia. Electronically Signed: Leanna Pérez MD at 8:16 EDT ,
--- OUTSIDE RECORDS SUMMARY | 2024-03-01 07:05 | XMS RPT_ITS | CCD ---
Author Organization [facility] Care Team Providers Care Cover Cutter Machine Name Role Phone Lance, Nancy Unavailable Physical [facility], [facility] Unavailable [phone] Matthew Becker Unavailable Rony Lucas Unavailable Cruz Kumari Unavailable Unavailable Sailaja Allan Unavailable Unavailable Slarb, Nona Unavailable Unavailable Jenelle London Unavailable Manbridgettk, Susan Unavailable Unavailable Unavailable Unavailable Sindi Slater Unavailable Unavailable Ciesa, Jazmyn Unavailable Lance, Nancy Unavailable Unavailable Lance, Nancy Unavailable Unavailable Lance, Nancy Unavailable Unavailable Lance, Nancy Unavailable Physical [facility], [facility] Unavailable Matthew Becker Unavailable [phone] Rony Lucas Unavailable [phone] Cruz Kumari Unavailable Unavailable Sindi Slater Unavailable Unavailable Ciesa, Jazmyn Unavailable Slarb, Nona Unavailable Unavailable Long, Sailaja L Unavailable Unavailable Manchak, Susan Unavailable Unavailable Unavailable Unavailable Jenelle London Unavailable Unavailable Cruz Kumari Unavailable Unavailable Manchak, Susan Unavailable Unavailable Sarai Berumen Unavailable [phone] Lindsey Guardado Unavailable Unavailable Jerrell, Asilaja L Unavailable Unavailable Rosalind Looney Unavailable Unavailable Diana Wade Unavailable Unavailable Cruz Corrigan Unavailable Unavailable Lance DO, Nancy Unavailable Physical Therapy, [facility] Unavailable [phone] Matthew Becker MD Unavailable Rony Lucas Unavailable Sarai Berumen Marie Unavailable Gravius PHOTOGRAMMETRIC ENGINEER, Lindsey Unavailable Unavailable Cross HEARING AID ASSISTANT, Diana Unavailable Unavailable Jerrell FRAZIER, Sailaja Myrick Unavailable Unavailable Manchak PHOTOGRAMMETRIC ENGINEER, Susan Unavailable Unavailable Nohemy, Sindi Unavailable Unavailable Slarb HEARING AID ASSISTANT, Nona Unavailable Unavailable Unavailable Unavailable Mark DURAND, Shahram Calix Unavailable Lance DO, Nancy Unavailable Friend, Dr. Singh Unavailable Dyan Lopez Unavailable Maura Medina MA Unavailable Unavailable Aure HEARING AID ASSISTANT, Rosalind Unavailable Unavailable Stephen Aguila Unavailable Fast DO, Micki A Unavailable Dr. Jeniffer Carlson Unavailable Constantin MCDONALD, Deepa Unavailable Florence Loera MA Unavailable Unavailable Blaine PHOTOGRAMMETRIC ENGINEER, Kayela Unavailable Unavailable Fast DO, Micki A Unavailable Jasmeet Sexton DO Primary Care Provide r JASMEET SEXTON Attending Unavail able JASMEET SEXTON Primary Care Unavail able JASMEET SEXTON Attending Unavail able JASMEET SEXTON Primary Care Unavail able JASMEET SEXTON Referring Unavail able JASMEET SEXTON Attending Unavail able JASMEET SEXTON Primary Care Unavail able JASMEET SEXTON Referring Unavail able JASMEET SEXTON Primary Care Unavail able JASMEET SEXTON Primary Care Unavail able AISHA DUKE Attending Unavailable Allergies Allergy Classification Reported Allergen(s) Allergy Type Date of Onset Reaction(s) Facility (20 sources) Codeine/Codeine Derivatives; Translations: [Codeine/Codein e Derivatives] allergy to substance [facility] Work Phone: Comment on above: itch (5 sources) Codeine; Translations: [CODEINE] Drug Allergy 7 [facility] Medications Current Medications Medication Drug Class(es) Dates Sig (Normalized) Sig (Original) cetirizine hydrochloride 10 mg oral tablet (2 sources) Histamine-1 Receptor Antagonist cetirizine (ZyrTEC) 10 MG tablet 1 (one) tablet (10 mg total) every night at bedtime . Active diphenhydrAMINE hydrochloride 25 mg oral capsule (2 sources) Histamine-1 Receptor Antagonist diphenhydrAMINE (BENADRYL) 25 mg capsule Take 1 (one) capsule (25 mg total) by mouth as needed for itching . Active DULoxetine 30 mg delayed release oral capsule (20 sources) Serotonin and Norepinephrine Reuptake Inhibitor Start: 12-29-2023 End: 03-28-2024 take 1 capsule by mouth once daily DULoxetine (CYMBALTA) 30 MG capsule Indications: Dysautonomia-like disorder Take 1 (one) capsule (30 mg total) by mouth daily . 90 capsule 12/29/2023 03/28/2024 Active Start: 09-17-2023 End: 12-29-2023 take 1 capsule by mouth twice daily DULoxetine (CYMBALTA) 30 MG capsule Indications: Dysautonomia-like disorder Take 1 (one) capsule (30 mg total) by mouth 2 (two) times a day . 180 capsule 09/17/2023 12/29/2023 Discontinued Start: 11-05-2022 take 1 capsule by [facility] once daily DULoxetine 30 mg oral capsule,delayed release (enteric coated) 1 (one) Capsule qd for 0 days Quantity: 90 {Capsule} Refills: 3 Ordered: 05-Nov-2022 Nancy uLcas DO, DO, Kathleen Start : 05-Nov-2022 Active Comments: Mail order. Start: 05-15-2022 take 1 capsule by [facility] once daily DULoxetine 30 mg oral capsule,delayed release (enteric coated) 1 (one) Capsule qd for 0 days Quantity: 90 {Capsule} Refills: 1 Ordered: 15-May-2022 Nancy Lucas DO, DO, Kathleen Start : 15-May-2022 Active Comments: Mail order. Start: 11-29-2021 take 1 capsule by [facility] once daily DULoxetine HCl 30 MG Oral Capsule Delayed Release Particles 1 (one) Capsule qd for 0 days Quantity: 90 {Capsule} Refills: 1 Ordered: 29-Nov-2021 Lance DO, Nancy Lucas DO Nancy Start : 29-Nov-2021 Active Comments: Mail order. Start: 07-11-2021 take 1 capsule by [facility] once daily DULoxetine HCl 30 MG Oral Capsule Delayed Release Particles 1 (one) Capsule qd for 0 days Quantity: 30 {Capsule} Refills: 0 Ordered: 11-Jul-2021 Lance DO, Nancy Powellon DO Nancy Start : 11-Jul-2021 Active Start: 07-03-2021 take 1 capsule by [facility] once daily DULoxetine HCl 30 MG Oral Capsule Delayed Release Particles 1 (one) Capsule qd for 0 days Quantity: 30 {Capsule} Refills: 0 Ordered: 03-Jul-2021 Lance DO, Nancy Lucas DO Nancy Start : 03-Jul-2021 Active Start: 06-04-2021 take 1 capsule by [facility] once daily DULoxetine HCl 30 MG Oral Capsule Delayed Release Particles 1 (one) Capsule qd for 0 days Quantity: 30 {Capsule} Refills: 0 Ordered: 04-Jun-2021 Lance DO, Nancy Lucas DO Nancy Start : 04-Jun-2021 Active Start: 05-13-2021 take 1 capsule by [facility] once daily DULoxetine HCl 30 MG Oral Capsule Delayed Release Particles 1 (one) Capsule qd for 0 days Quantity: 30 {Capsule} Refills: 0 Ordered: 13-May-2021 Lance DO, Nancy Lucas DO Nancy Start : 13-May-2021 Active Start: 10-02-2014 End: 11-01-2014 CYMBALTA, 60MG (Oral Capsule Delayed Release Particles) 1 (one) Capsule DR Part Capsule DR Part qd for 30 days Quantity: 30 {Capsule} Refills: 0 Ordered: 20-Feb-2015 Karen Madrid MD Start : 02-Oct-2014 End : 01-Nov-2014 Inactive Comments: [facility] Start: 10-02-2014 End: 11-01-2014 take 1 capsule by mouth once daily CYMBALTA, 60MG (Oral Capsule Delayed Release Particles) 1 (one) Capsule DR Part Capsule DR Part qd for 30 days Quantity: 30 {Capsule} Refills: 0 Ordered: 20-Feb-2015 Karen Madrid MD Start : 02-Oct-2014 End : 01-Nov-2014 Inactive Comments: [facility] End: 09-17-2023 DULoxetine (CYMBALTA) 20 MG capsule Take 30 mg by mouth daily . 0 09/17/2023 Discontinued Comment on above: [facility] Mail order. famotidine 40 mg oral tablet (2 sources) Histamine-2 Receptor Antagonist Start: End: take 1 tablet by mouth once daily famotidine (PEPCID) 40 MG tablet Indications: Chronic urticaria Take 1 (one) tablet (40 mg total) by mouth daily . 90 tablet 3 09/17/2023 09/16/2024 Active fexofenadine hydrochloride 180 mg oral tablet (20 sources) Histamine-1 Receptor Antagonist Start: 4 End: take 1 tablet by mouth once daily fexofenadine (MAYELA) 180 MG tablet Indications: Chronic urticaria Take 1 (one) tablet (180 mg total) by mouth daily . 90 tablet 3 09/17/2023 09/16/2024 Active Start: 12-04-2021 take 1 tablet by zoraida th once daily Mayela Allergy 180 MG Oral Tablet 1 Tablet daily for 90 days Quantity: 90 {Tablet} Refills: 0 Ordered: 05-Dec-2021 Nancy Lucas DO, DO, Kathleen Start : 05-Dec-2021 Active Comments: Mail order. Start: 08-31-2013 take 1 tablet by zoraida th once daily Mayela Allergy 180 MG Oral Tablet 1 Tablet daily for 30 days Quantity: 30 {Tablet} Refills: 3 Ordered: 12-Nov-2021 Deepa Killian CNP Start : 12-Nov-2021 Active End: 09-17-2023 take 1 tablet by mouth once daily fexofenadine (MAYELA) 60 MG tablet Take 1 (one) tablet (60 mg total) by mouth daily . 0 09/17/2023 Discontinued Comment on above: Mail order. folic acid/multivit-min/lute in (CENTRUM SILVER ORAL) (2 sources) folic acid/multi vit-min/lutein (CENTRUM SILVER ORAL) Take by mouth . Active folic acid/multi vit-min/lutein (CENTRUM SILVER ORAL) Take by mouth . 0 Active magnesium gluconate 550 mg oral tablet (2 sources) magnesium 30 mg tablet Take 64 mg by mouth daily . Active meloxicam 15 mg oral tablet (20 sources) Nonsteroidal Anti-inflammatory Drug Start: 03-02-2023 take 1 tablet by mouth once daily meloxicam 15 mg oral tablet 1 (one) Tablet qd for 30 days Quantity: 30 {Tablet} Refills: 3 Ordered: 02-Mar-2023 Lance DONancy DO Nancy Start : 02-Mar-2023 Active Start: 08-12-2022 take 1 tablet by zoraida th once daily meloxicam 15 mg oral tablet 1 (one) Tablet qd for 0 days Quantity: 30 {Tablet} Refills: 3 Ordered: 12-Aug-2022 Lance DONancy DO Nancy Start : 12-Aug-2022 Active Start: 03-12-2022 take 1 tablet by zoraida th once daily Meloxicam 15 MG Oral Tablet 1 (one) Tablet qd for 0 days Quantity: 30 {Tablet} Refills: 3 Ordered: 12-Mar-2022 Lance DO, Nancy Lucas DO Nancy Start : 12-Mar-2022 Active Start: 11-12-2021 take 1 tablet by zoraida th once daily Meloxicam 15 MG Oral Tablet 1 (one) Tablet qd for 0 days Quantity: 30 {Tablet} Refills: 3 Ordered: 12-Nov-2021 Lance DONancy DO Nancy Start : 12-Nov-2021 Active Start: 07-28-2016 End: 09-17-2023 take 1 tablet by mouth once daily Meloxicam 15 MG Oral Tablet 1 (one) Tablet qd for 0 days Quantity: 30 {Tablet} Refills: 3 Ordered: 13-May-2021 Nona Stock LPN Start : 13-May-2021 Active Start: 11-02-2015 End: 08-05-2017 take 1 tablet by mouth twice daily Mobic 15 MG Oral Tablet 1 (one) Tablet Tablet bid for 30 days Refills: 0 Ordered: 05-Aug-2017 Nona Stock LPN Start : 02-Nov-2015 End : 05-Aug-2017 Inactive nortriptyline 10 mg oral capsule (1 source) Tricyclic Antidepressant Start: 12-29-2023 End: 01-28-2024 take 1 capsule by mouth once daily nortriptyline (PAMELOR) 10 MG capsule Indications: Dysautonomia-like disorder , Fibromyalgia Take 1 (one) capsule (10 mg total) by mouth nightly . 30 capsule 12/29/2023 01/28/2024 Active propylene glycol 6 mg/ml ophthalmic solution (2 sources) Start: 07-05-2018 propylene glycoL (Systane Complete) 0.6 % Drop Apply 1 drop to eye 3 (three) times a day . 07/05/2018 Active Completed/Discontinued Medications Medication Drug Class(es) Dates Sig (Normalized) Sig (Original) 1 ml abatacept 125 mg/ml auto-injector (20 sources) Selective T Cell Costimulation Modulator Start: 12-14-2017 End: 02-23-2018 inject 1 mL by subcutaneous injection every week Orencia ClickJect 125 MG/ML Subcutaneous Solution Auto-injector 1 (one) Milliliter once a week for 30 days Quantity: 4 {Milliliter} Refills: 3 Ordered: 23-Feb-2018 Stephen Aguila Start : 14-Dec-2017 End : 23-Feb-2018 Inactive acetaminophen 325 mg / oxyCODONE hydrochloride 5 mg oral tablet (20 sources) Opioid Agonist Start: 10-02-2014 End: 11-01-2014 take 1 tablet by mouth twice daily OXYCODONE-ACETAMIN OPHEN, 5-325MG (Oral Tablet) 1 (one) Tablet Tablet bid for 30 days Quantity: 30 {Tablet} Refills: 0 Ordered: 20-Feb-2015 Karen Madrid MD Start : 02-Oct-2014 End : 01-Nov-2014 Inactive Comments: per basali Comment on above: per basali [id number] 200 actuat albuterol 0.09 mg/actuat metered dose inhaler (20 sources) beta2-Adrenergic Agonist Start: 08-05-2017 End: 12-14-2017 take 2 puff(s) by inhalation three times daily ProAir HFA 108 (90 Base) MCG/ACT Inhalation Aerosol Solution 2 (two) Puff tid for 0 days Quantity: 1 {Inhaler} Refills: 0 Ordered: 14-Dec-2017 Sindi Slater Start : 05-Aug-2017 End : 14-Dec-2017 Discontinued Start: 08-05-2017 End: 12-14-2017 take 2 puff(s) by inhalation three times daily ProAir HFA 108 (90 Base) MCG/ACT Inhalation Aerosol Solution 2 (two) Puff tid for 0 days Quantity: 1 {Inhaler} Refills: 0 Ordered: 14-Dec-2017 Sindi Slater Start : 05-Aug-2017 End : 14-Dec-2017 Discontinued amoxicillin 875 mg / clavulanate 125 mg oral tablet (20 sources) Penicillin-class Antibacterial Start: 07-09-2022 End: 07-19-2022 take 1 tablet by mouth twice daily amoxicillin-pot clavulanate 875-125 mg oral tablet 1 (one) Tablet bid for 10 days Quantity: 20 {Tablet} Refills: 0 Ordered: 09-Jul-2022 Rosalind Looney LPN Start : 09-Jul-2022 End : 19-Jul-2022 Inactive Start: 09-03-2020 End: 09-13-2020 take 1 tablet by mouth twice daily Amoxicillin-Pot Clavulanate 875-125 MG Oral Tablet 1 (one) Tablet bid for 10 days Quantity: 20 {Tablet} Refills: 0 Ordered: 03-Sep-2020 Nona Stock LPN Start : 03-Sep-2020 End : 13-Sep-2020 Inactive Start: 05-05-2018 End: 05-19-2018 take 1 tablet by mouth twice daily Augmentin 875-125 MG Oral Tablet 1 (one) Tablet bid for 14 days Quantity: 28 {Tablet} Refills: 0 Ordered: 05-May-2018 Stephen Aguila CNP Start : 05-May-2018 End : 19-May-2018 Inactive Start: 12-14-2017 End: 12-28-2017 take 1 tablet by mouth twice daily Augmentin 875-125 MG Oral Tablet 1 (one) Tablet bid for 14 days Quantity: 28 {Tablet} Refills: 0 Ordered: 14-Dec-2017 Stephen Aguila CNP Start : 14-Dec-2017 End : 28-Dec-2017 Inactive aspirin 81 mg oral tablet (20 sources) Platelet Aggregation Inhibitor, Nonsteroidal Anti-inflammatory Drug take 1 tablet by mouth once daily Adult Low Dose Aspirin 81 MG Oral Tablet 1 tablet daily (81 MG) Inactive azithromycin 250 mg oral tablet (20 sources) Macrolide Antimicrobial Start: 09-06-19 Zithromax Z-Forrest 250 mg oral tablet 1 Packet as directed on dose pack;For 250 mg dose pack: take 500 mg today (day 1), then 250 mg for 4 days (days 2-5) for 0 days Quantity: 1 {Packet} Refills: 0 Ordered: 05-Sep-2022 Deepa Killian CNP Start : 05-Sep-2022 Active Start: 03-21-2020 End: 06-21-2020 Zithromax Z-Forrest 250 MG Oral Tablet 1 (one) Tablet TAD 2 tabs day 1 then 1 tab qd til gone for 0 days Quantity: 1 {Package} Refills: 0 Ordered: 21-Jun-2020 Diana Wade LPN Start : 21-Mar-2020 End : 21-Jun-2020 Discontinued Start: 03-23-2019 End: 01-24-2020 Zithromax Z-Forrest 250 MG Oral Tablet 1 (one) Tablet TAD for 0 days Quantity: 1 {Package} Refills: 0 Ordered: 24-Jan-2020 Rosalind Looney LPN Start : 23-Mar-2019 End : 24-Jan-2020 Inactive Start: 08-05-2017 End: 08-10-2017 Zithromax Z-Forrest 250 MG Oral Tablet 1 (one) Tablet TAD for 0 days Quantity: 1 {Package} Refills: 0 Ordered: 10-Aug-2017 Susan Acevedo CMA Start : 05-Aug-2017 End : 10-Aug-2017 Inactive benzonatate 200 mg oral capsule (20 sources) Non-narcotic Antitussive Start: 03-23-2019 End: 01-24-2020 take 1 capsule by mouth three times daily as needed Benzonatate 200 MG Oral Capsule 1 (one) Capsule PO TID PRN for 0 days Quantity: 30 {Capsule} Refills: 0 Ordered: 24-Jan-2020 Rosalind Looney LPN Start : 23-Mar-2019 End : 24-Jan-2020 Inactive Start: 05-05-2018 End: 10-18-2018 take 1 capsule by mouth three times daily as needed Benzonatate 200 MG Oral Capsule 1 (one) Capsule PO TID PRN for 0 days Quantity: 30 {Capsule} Refills: 0 Ordered: 18-Oct-2018 Jenelle London Start : 05-May-2018 End : 18-Oct-2018 Inactive Start: 08-11-2017 take 1 capsule by mo [facility] three times daily as needed Benzonatate 200 MG Oral Capsule 1 (one) Capsule Capsule PO TID PRN for 0 days Quantity: 21 {Capsule} Refills: 0 Ordered: 11-Aug-2017 Nohemy Sindi Start : 11-Aug-2017 Active cholecalciferol 1.25 mg oral capsule (20 sources) Vitamin D take 1 tablet by mouth once Vitamin D3 1.25 MG (42855 UT) Oral Capsule 1 tablet daily (1.25 MG (31896 UT)) Active ciprofloxacin 500 mg oral tablet (20 sources) Quinolone Antimicrobial Start: 11-13-19 End: 12-29-19 24 take 1 tablet by mouth twice daily ciprofloxacin HCl (CIPRO) 500 MG tablet Take 1 (one) tablet (500 mg total) by mouth 2 (two) times a day . 20 tablet 11/13/2023 12/29/2023 Discontinued Start: 08-30-2020 End: 09-09-2020 take 1 tablet by mouth twice daily Cipro 500 MG Oral Tablet 1 (one) Tablet bid for 10 days Quantity: 20 {Tablet} Refills: 0 Ordered: 30-Aug-2020 Nona Stock LPN Start : 30-Aug-2020 End : 09-Sep-2020 Inactive Start: 01-27-2020 End: 02-03-2020 take 1 tablet by mouth twice daily Ciprofloxacin HCl 500 MG Oral Tablet 1 (one) Tablet bid for 7 days Quantity: 14 {Tablet} Refills: 0 Ordered: 27-Jan-2020 Stephen Aguila Start : 27-Jan-2020 End : 03-Feb-2020 Inactive cyclobenzaprine hydrochloride 10 mg oral tablet (20 sources) Muscle Relaxant Start: 2021 End: 10-01-2021 take 1 tablet by mouth every eight hours as needed Cyclobenzaprine HCl 10 MG Oral Tablet 1 (one) Tablet q8hrs prn for muscle relaxation for 0 days Quantity: 30 {Tablet} Refills: 0 Ordered: 01-Oct-2021 Susan Acevedo CMA Start : 30-Jul-2021 End : 01-Oct-2021 Inactive doxycycline hyclate 100 mg oral capsule (8 sources) Tetracycline-c lass Drug Start: 07-17-2022 End: 07-27-2022 take 1 capsule by mouth twice daily doxycycline hyclate 100 mg oral capsule 1 (one) capsule two times daily for 10 days Quantity: 20 {Capsule} Refills: 0 Ordered: 17-Jul-2022 Rosalind Looney LPN Start : 17-Jul-2022 End : 27-Jul-2022 Inactive Comments: Use SPF while taking Comment on above: Use SPF while taking 0.5 ml etanercept 50 mg/ml injection (20 sources) Tumor Necrosis Factor Constance Start: 01-12-2014 End: 06-05-2015 ENBREL, 50MG/ML (Subcutaneous Solution Prefilled Syringe) 1 (one) Solution Solution q week for 30 days Refills: 0 Ordered: 05-Jun-2015 Nona Stock LPN Start : 12-Jan-2014 End : 05-Jun-2015 Discontinued Start: 01-12-2014 End: 06-05-2015 ENBREL, 50MG/ML (Subcutaneou s Solution Prefilled Syringe) 1 (one) Solution Solution q week for 30 days Refills: 0 Ordered: 05-Jun-2015 Nona Stock LPN Start : 12-Jan-2014 End : 05-Jun-2015 Discontinued Start: 01-12-2014 End: 06-05-2015 ENBREL, 50MG/ML (Subcutaneou s Solution Prefilled Syringe) 1 (one) Solution Solution q week for 30 days Refills: 0 Ordered: 05-Jun-2015 Nona Stock LPN Start : 12-Jan-2014 End : 05-Jun-2015 Discontinued Start: 01-12-2014 End: 06-05-2015 ENBREL, 50MG/ML (Subcutaneou s Solution Prefilled Syringe) 1 (one) Solution Solution q week for 30 days Refills: 0 Ordered: 05-Jun-2015 Nona Stock LPN Start : 12-Jan-2014 End : 05-Jun-2015 Discontinued Start: 01-12-2014 End: 06-05-2015 ENBREL, 50MG/ML (Subcutaneou s Solution Prefilled Syringe) 1 (one) Solution Solution q week for 30 days Refills: 0 Ordered: 05-Jun-2015 Nona Stock LPN Start : 12-Jan-2014 End : 05-Jun-2015 Discontinued Flonase 50 MCG/DOSE Nasal Inhaler (14 sources) Flonase 50 MCG/DOSE Nasal Inhaler 1 spray as needed (50 MCG/DOSE) Active Comments: Medication taken as needed. OTC Comment on above: Medication taken as needed. OTC fluconazole 100 mg oral tablet (20 sources) Azole Antifungal Start: 1 End: 2 take 1 tablet by mouth once daily Diflucan 100 MG Oral Tablet 1 (one) Tablet qd for 0 days Quantity: 7 {Tablet} Refills: 2 Ordered: 30-Jul-2021 Maura Medina MA Start : 05-Jun-2021 End : 30-Jul-2021 Inactive fluticasone propionate 0.05 mg/actuat metered dose nasal spray (20 sources) Corticosteroid Start: 4 End: 7 Flonase 50 MCG/ACT Nasal Suspension 2 (two) Puff Puff daily for 0 days Quantity: 1 {Bottle} Refills: 0 Ordered: 30-Mar-2017 Nona Stock LPN Start : 03-Feb-2014 End : 30-Mar-2017 Inactive Start: 02-03-2014 End: 03-30-2017 Flonase 50 MCG/ACT Nasal Meg pension 2 (two) Puff Puff daily for 0 days Quantity: 1 {Bottle} Refills: 0 Ordered: 30-Mar-2017 Nona Stock LPN Start : 03-Feb-2014 End : 30-Mar-2017 Inactive Flonase 50 MCG/D OSE Nasal Inhaler 1 spray as needed (50 MCG/DOSE) Active Comments: Medication taken as needed. OTC Comment on above: Medication taken as needed. OTC folic acid 1 mg oral tablet (20 sources) Start: 4 End: 8 take 1 tablet by mouth once daily Folic Acid 1 MG Oral Tablet 1 (one) Tablet Tablet qd for 30 days Refills: 0 Ordered: 05-Aug-2017 Nona Stock LPN Start : 31-Aug-2013 End : 05-Aug-2017 Inactive gabapentin 300 mg oral capsule (20 sources) Anti-epileptic Agent Start: 8 End: 1 Gabapentin 300 MG Oral Capsule 1 (one) Capsule Capsule take daily x 3 days then bid for 0 days Quantity: 60 {Capsule} Refills: 0 Ordered: 21-Jun-2020 Diana Wade LPN Start : 23-Feb-2018 End : 21-Jun-2020 Discontinued Comments: neuropathic pain G62.9 [place] Sixty Start: 11-02-2015 End: 03-30-2017 Neurontin 300 MG Oral Capsul e 1 (one) Capsule Capsule qhs for 5 days then bid for 0 days Quantity: 60 {Capsule} Refills: 3 Ordered: 30-Mar-2017 Nona Stock LPN Start : 02-Nov-2015 End : 30-Mar-2017 Inactive Start: 10-02-2014 End: 11-01-2014 take 1 capsule by mouth twice daily GABAPENTIN, 100MG (Oral Capsule) 1 (one) Capsule Capsule bid for 30 days Quantity: 30 {Capsule} Refills: 0 Ordered: 20-Feb-2015 Karen Madrid MD Start : 02-Oct-2014 End : 01-Nov-2014 Inactive Comments: per basali Comment on above: per basali neuropathic pain G62 .9 [place] [address] [employer] hydroxychloroquine sulfate 200 mg oral tablet (20 sources) Antimalarial, Antirheumatic Agent Start: 2019 End: 2020 take 2 tablets by mouth twice daily, then take 1 tablet by mouth twice daily Hydroxychloroquine Sulfate 200 MG Oral Tablet tad Tablet bid for 0 days Quantity: 12 {Tablet} Refills: 0 Ordered: 21-Jun-2020 Diana Wade LPN Start : 16-Mar-2020 End : 21-Jun-2020 Discontinued Comments: 2tabs bid for one day then 1tab bid for 4 days #12 Comment on above: 2tabs bid for one da y then 1tab bid for 4 days #12 levocetirizine dihydrochloride 5 mg oral tablet (20 sources) Histamine-1 Receptor Antagonist Start: 2016 End: 2020 take 1 tablet by mouth once daily Levocetirizine Dihydrochloride 5 MG Oral Tablet 1 (one) Tablet qd for 0 days Quantity: 90 {Tablet} Refills: 3 Ordered: 21-Jun-2020 Diana Wade LPN Start : 06-Apr-2017 End : 21-Jun-2020 Discontinued Comments: Mail order. Comment on above: Mail order. levoFLOXacin 500 mg oral tablet (20 sources) Quinolone Antimicrobial Start: 2013 End: 2014 take 1 tablet by mouth once daily LEVOFLOXACIN, 500MG (Oral Tablet) 1 (one) Tablet Tablet qd for 0 days Quantity: 10 {Tablet} Refills: 0 Ordered: 20-Feb-2015 STEPHANIE Mahoney LPN Start : 23-Jan-2014 End : 20-Feb-2015 Inactive methotrexate 2.5 mg oral tablet (20 sources) Folate Analog Metabolic Inhibitor Start: 2017 End: 2018 take 6 tablets by mouth every week Methotrexate Sodium 2.5 MG Oral Tablet 6 Tablet once a week for 30 days Quantity: 24 {Tablet} Refills: 3 Ordered: 05-May-2018 SmithaStephen vera Start : 14-Dec-2017 End : 05-May-2018 Inactive Start: 08-31-2013 End: 08-05-2017 take 8 tablets by mouth every week Methotrexate 2.5 MG Oral Tablet 8 Tablet Tablet q week for 30 days Refills: 0 Ordered: 05-Aug-2017 Nona Stock LPN Start : 31-Aug-2013 End : 05-Aug-2017 Inactive methylPREDNISolone 4 mg oral tablet (20 sources) Corticosteroid Start: 02-16-2018 End: 10-18-2018 take 1 mg by mouth at mealtime Medrol 4 MG Oral Tablet Therapy Pack 1 (one) Milligram Milligram TAD for 0 days Quantity: 1 {Package} Refills: 0 Ordered: 18-Oct-2018 Jenelle London Start : 16-Feb-2018 End : 18-Oct-2018 Inactive Comments: take with food Comment on above: take with food metroNIDAZOLE 500 mg oral tablet (1 source) Nitroimidazole Antimicrobial Start: 11-13-2023 End: 12-29-2023 take 1 tablet by mouth twice daily at mealtime metroNIDAZOLE (FLAGYL) 500 MG tablet Take 1 (one) tablet (500 mg total) by mouth 2 (two) times a day with meals . 20 tablet 11/13/2023 12/29/2023 Discontinued mineral oil 0.03 mg/mg / petrolatum 0.94 mg/mg ophthalmic ointment (2 sources) Start: 07-05-2018 End: 12-29-2023 white petrolatum-minera l oiL 94-3 % Oint Apply 1 Application to eye as needed . 07/05/2018 12/29/2023 Discontinued montelukast 10 mg oral tablet (20 sources) Leukotriene Receptor Antagonist Start: 10-11-2014 End: 08-05-2017 take 1 tablet by mouth once daily Singulair 10 MG Oral Tablet 1 (one) Tablet Tablet qd for 0 days Quantity: 90 {Tablet} Refills: 0 Ordered: 05-Aug-2017 Montrell WAGNERNona Start : 11-Oct-2014 End : 05-Aug-2017 Inactive Comments: Mail order. 07-14-14 no refills patient needs an appointment for check up Comment on above: 07-14-14 no refills p atient needs an appointment for check up Mail order. 07-14-14 no refills patient needs an appointment for check up Multivitamin with Zinc, Magnesuim, and Calicum together (20 sources) Multivitamin wit h Zinc, Magnesuim, and Calicum together 1 tablet daily Active Comments: OTC Comment on above: OTC nitrofurantoin, macrocrystals 100 mg oral capsule (20 sources) Nitrofuran Antibacterial Start: 01-24-2020 End: 01-31-2020 take 1 capsule by mouth twice daily Macrodantin 100 MG Oral Capsule 1 (one) Capsule bid for 7 days Quantity: 14 {Capsule} Refills: 0 Ordered: 24-Jan-2020 Smithajody Stephen Start : 24-Jan-2020 End : 31-Jan-2020 Inactive Comments: or generic Comment on above: or generic nystatin 100 unt/mg topical powder (20 sources) Polyene Antifungal Start: 11-11-2021 End: 09-05-2022 Nyamyc 100,000 unit/gram topical powder tid powder as directed for 0 days Quantity: 1 {Unspecified} Refills: 2 Ordered: 05-Sep-2022 Lily Kendrick CMA Start : 11-Nov-2021 End : 05-Sep-2022 Inactive Comments: dispense large botte Start: 01-11-2021 End: 2021 Nyamyc [id number] UNIT/GM Toolmaker Helper al Powder tid powder as directed for 0 days Quantity: 1 {Unspecified} Refills: 2 Ordered: 30-Jul-2021 Maura Medina MA Start : 11-Jan-2021 End : 30-Jul-2021 Inactive Comments: dispense large botte Start: 03-26-2020 End: 06-21-2020 Nystatin [id number] UNIT/ML Mout h/Throat Suspension 5 Milliliter 5cc 5 times a day for 10 days for 0 days Quantity: 150 {Milliliter} Refills: 0 Ordered: 21-Jun-2020 Diana Wade LPN Start : 26-Mar-2020 End : 21-Jun-2020 Discontinued Comments: K13.79 Comment on above: K13.79 dispense large botte omeprazole 40 mg delayed release oral capsule (20 sources) Proton Pump Inhibitor Start: 10-01-2022 take 1 capsule by mouth once daily omeprazole 40 mg oral capsule,delayed release (enteric coated) 1 (one) Capsule DR qd for 90 days Quantity: 90 {Capsule} Refills: 3 Ordered: 01-Oct-2022 Nancy Lucas DO, DO, Kathleen Start : 01-Oct-2022 Active Comments: Mail order. Start: 10-29-2021 take 1 capsule by [facility] once daily Omeprazole 40 MG Oral Capsule Delayed Release 1 (one) Capsule DR qd for 90 days Quantity: 90 {Capsule} Refills: 3 Ordered: 29-Oct-2021 Nancy Lucas DO, DO, Kathleen Start : 29-Oct-2021 Active Comments: Mail order. Start: 05-13-2021 take 1 capsule by [facility] once daily Omeprazole 40 MG Oral Capsule Delayed Release 1 (one) Capsule DR qd for 90 days Quantity: 90 {Capsule} Refills: 1 Ordered: 13-May-2021 Nancy Lucas DO, DO, Kathleen Start : 13-May-2021 Active Start: 11-23-2020 take 1 capsule by [facility] once daily Omeprazole 40 MG Oral Capsule Delayed Release 1 (one) Capsule DR qd for 90 days Quantity: 90 {Capsule} Refills: 1 Ordered: 23-Nov-2020 Nancy Lucas DO, DO, Kathleen Start : 23-Nov-2020 Active Start: 06-18-2020 take 1 capsule by [facility] once daily Omeprazole 40 MG Oral Capsule Delayed Release 1 (one) Capsule DR qd for 90 days Quantity: 90 {Capsule} Refills: 1 Ordered: 18-Jun-2020 Nancy Lucas DO, DO, Kathleen Start : 18-Jun-2020 Active Comments: Mail order. Start: 06-06-2019 take 1 capsule by mo ut once daily Omeprazole 40 MG Oral Capsule Delayed Release 1 (one) Capsule DR qd for 90 days Quantity: 90 {Capsule} Refills: 1 Ordered: 06-Jun-2019 Lance DO, Nancy Lance DO Nancy Start : 06-Jun-2019 Active Comments: Mail order. Start: 11-29-2018 take 1 capsule by mo ut once daily Omeprazole 40 MG Oral Capsule Delayed Release 1 (one) Capsule DR qd for 90 days Quantity: 90 {Capsule} Refills: 1 Ordered: 29-Nov-2018 Lance DONancy DO, Kathleen Start : 29-Nov-2018 Active Start: 11-16-2018 End: 11-13-2018 take 1 capsule by mouth once daily Omeprazole 40 MG Oral Capsule Delayed Release 1 (one) Capsule DR qd for 30 days Quantity: 30 {Capsule} Refills: 0 Ordered: 16-Nov-2018 Susan Acevedo Start : 16-Nov-2018 End : 13-Nov-2018 Active Start: 11-15-2018 End: 11-13-2018 take 1 capsule by mouth once daily Omeprazole 40 MG Oral Capsule Delayed Release 1 (one) Capsule DR qd for 30 days Quantity: 30 {Capsule} Refills: 0 Ordered: 15-Nov-2018 Lance DO, Nancy Shields DO Start : 15-Nov-2018 End : 13-Nov-2018 Active Start: 10-14-2018 take 1 capsule by [facility] once daily Omeprazole 40 MG Oral Capsule Delayed Release 1 (one) Capsule DR qd for 30 days Quantity: 30 {Capsule} Refills: 0 Ordered: 14-Oct-2018 Lance DO, Nancy Lucas DOCameliaNancy Start : 14-Oct-2018 Active Start: 10-08-2018 take 1 capsule by mo ut once daily Omeprazole 40 MG Oral Capsule Delayed Release 1 (one) Capsule DR qd for 30 days Quantity: 30 {Capsule} Refills: 0 Ordered: 08-Oct-2018 Lance DONancy DO, Kathleen Start : 08-Oct-2018 Active Start: 08-26-2017 take 1 capsule by mo [facility] once daily Omeprazole 40 MG Oral Capsule Delayed Release 1 (one) Capsule DR qd for 30 days Quantity: 30 {Capsule} Refills: 0 Ordered: 14-Sep-2018 Nancy Lucas DO, DO, Kathleen Start : 14-Sep-2018 Active Comment on above: Mail order. phenazopyridine hydrochloride 100 mg oral tablet (20 sources) Start: 01-24-2020 End: 01-26-2020 take 1 tablet by mouth three times daily Pyridium 100 MG Oral Tablet 1 (one) Tablet tid for 2 days Quantity: 6 {Tablet} Refills: 0 Ordered: 24-Jan-2020 MichelleStephen morales Start : 24-Jan-2020 End : 26-Jan-2020 Inactive predniSONE 10 mg oral tablet (20 sources) Corticosteroid Start: 02-23-2018 End: 03-02-2019 predniSONE 10 MG Oral Tablet 3 (three) Tablet pills for 3 days 2 for 3 days 1 for 3 day with food am for 0 days Quantity: 18 {Tablet} Refills: 0 Ordered: 02-Mar-2019 Cruz Corrigan LPN Start : 23-Feb-2018 End : 02-Mar-2019 Inactive Comments: with food Start: 08-05-2017 PredniSONE 10 MG Oral Tablet 3 (three) Tablet pills for 3 days 2 for 3 days 1 for 3 day with food am for 0 days Quantity: 18 {Tablet} Refills: 0 Ordered: 05-Aug-2017 Yakelin HARRYStephen Start : 05-Aug-2017 Active Comments: with food Comment on above: with food tofacitinib 5 mg oral tablet (20 sources) Kinase Inhibitor Start: 03-30-2017 End: 04-29-2017 take 1 tablet by mouth twice daily Xeljanz 5 MG Oral Tablet 1 (one) Tablet bid for 30 days Quantity: 30 {Tablet} Refills: 0 Ordered: 30-Mar-2017 Nancy Lucas DO, DO, Kathleen Start : 30-Mar-2017 End : 29-Apr-2017 Inactive 24 hr traMADol hydrochloride 100 mg extended release oral tablet (20 sources) Opioid Agonist Start: 01-12-2014 End: 11-02-2015 TRAMADOL HCL ER, 100MG (Oral Tablet Extended Release 24 Hour) 1 (one) Tablet ER 24HR Tablet ER 24HR tid/prn for 30 days Refills: 0 Ordered: 02-Nov-2015 Jenelle Castellon RN Start : 12-Jan-2014 End : 02-Nov-2015 Inactive Start: 01-12-2014 End: 11-02-2015 TRAMADOL HCL ER, 100MG (Oral Tablet Extended Release 24 Hour) 1 (one) Tablet ER 24HR Tablet ER 24HR tid/prn for 30 days Refills: 0 Ordered: 02-Nov-2015 Jenelle Castellon LPN Start : 12-Jan-2014 End : 02-Nov-2015 Inactive Start: 01-12-2014 End: 11-02-2015 TRAMADOL HCL ER, 100MG (Oral Tablet Extended Release 24 Hour) 1 (one) Tablet ER 24HR Tablet ER 24HR tid/prn for 30 days Refills: 0 Ordered: 02-Nov-2015 Jenelle Castellon LPN Start : 12-Jan-2014 End : 02-Nov-2015 Inactive Problems Active Problems Problem Classification Problem Date Documented Da te Episodic/Chronic Abdominal pain (20 sources) Right flank pain; Translations: [Right flank pain] Resolved: 2 08-30-2020 Episodic Acute bronchitis (12 sources) Acute bronchitis; Translations: [Acute bronchitis] 09-05-2022 Episodic Asthma (20 sources) Acute exacerbation of asthma; Translations: [Acute asthma exacerbation (Renamed from Asthma with acute exacerbation)] 02-15-2018 Chronic Blindness and vision defects (20 sources) Blurring of visual image; Translations: [Blurred vision] Resolved: 2 02-15-2018 Episodic Cardiac dysrhythmias (12 sources) Irregular heart beat; Translations: [Irregular heartbeat] 09-05-2022 Chronic Diseases of mouth; excluding dental (20 sources) Oral lesion; Translations: [Mouth sores] Resolved: 2 03-26-2020 Episodic Disorders of teeth and jaw (20 sources) Temporomandibular joint disorder; Translations: [TMJ (temporomandibular joint disorder)] 02-15-2018 Episodic Comment on above: uses mouth mame but chews thru Diverticulosis and diverticulitis (2 sources) Diverticulitis of large intestine without perforation or abscess without bleeding; Translations: [Diverticulitis of large intestine without perforation or abscess without bleeding] Onset: 4 Chronic Esophageal disorders (20 sources) Gastroesophageal reflux disease; Translations: [Acid reflux] 02-15-2018 Chronic Fluid and electrolyte disorders (20 sources) Dehydration; Translations: [Moderate dehydration] 02-15-2018 Episodic Genitourinary symptoms and ill-defined conditions (20 sources) Urinary symptoms ; Translations: [Dysuria] Resolved: 2 01-24-2020 Episodic Immunizations and screening for infectious disease (20 sources) Need for prophylactic vaccination and inoculation against influenza; Translations: [Needs influenza immunization] 08-30-2020 Episodic Joint disorders and dislocations; trauma-related (20 sources) Dislocation of temporomandibular joint; Translations: [TMJ (dislocation of temporomandibular joint)] 02-15-2018 Episodic Noninfectious gastroenteritis (20 sources) Gastroenteritis; Translations: [Gastroenteritis] 02-15-2018 Episodic Nonmalignant breast conditions (20 sources) Pain of breast; Translations: [Breast pain] Resolved: 6 08-05-2017 Episodic Comment on above: primary etiology? vs fibro related? Nonspecific chest pain (20 sources) Chest pain at rest; Translations: [Chest pain] Resolved: 2 02-15-2018 Episodic Comment on above: worse with cough, th ink asthma related Normal and/or delivery (20 sources) History of past delivery; Translations: [Vaginal delivery] 02-15-2018 Episodic Comment on above: Osteoarthritis (20 sources) Bilateral osteoarthritis of knees; Translations: [Osteoarthritis of both knees, unspecified osteoarthritis type] 05-13-2021 Chronic Comment on above: start nsaid, - discu ssed steriod iinj? stem cells Other acquired deformities (20 sources) Leg length inequality; Translations: [Leg length discrepancy] 02-15-2018 Episodic Comment on above: Left side is shorter Other circulatory disease (20 sources) Other specified symptoms and signs involving the circulatory and respiratory systems; Translations: [Abnormal chest sounds] 08-11-2017 Episodic Other connective tissue disease (20 sources) Primary fibromyalgia syndrome; Translations: [Fibromyalgia] Onset: 4 02-15-2018 Episodic Other connective tissue disease (20 sources) Limitation of joint movement; Translations: [Decreased range of motion of left lower extremity] Resolved: 2 02-15-2018 Episodic Other connective tissue disease (19 sources) Muscle weakness of upper limb; Translations: [Right arm weakness] 03-02-2019 Episodic Comment on above: takes gabapentin at night Other connective tissue disease (20 sources) Weakness of right arm; Translations: [Right arm weakness] Resolved: 2 08-30-2020 Episodic Comment on above: takes gabapentin at night Other connective tissue disease (2 sources) Other symptoms and signs involving the musculoskeletal system; Translations: [Right arm weakness] Resolved: 2 10-01-2021 Episodic Comment on above: takes gabapentin at night Other gastrointestinal disorders (20 sources) Diarrhea and vomiting; Translations: [Vomiting and diarrhea] 02-15-2018 Episodic Other hereditary and degenerative nervous system conditions (20 sources) Restless legs; Translations: [RLS (restless legs syndrome)] 06-14-2021 Chronic Comment on above: will try magnesium 4 00 qd-bid and let me know if works vs needing rx Other lower respiratory disease (20 sources) Dyspnea; Translations: [SOB (shortness of breath)] Resolved: 2 02-15-2018 Episodic Other lower respiratory disease (20 sources) Wheezing; Translations: [Wheezing (Renamed from Asthmatic breathing)] 02-15-2018 Episodic Other lower respiratory disease (20 sources) Cough; Translations: [Cough] 08-05-2017 Episodic Comment on above: likely viral but wor sening rapids all negative. Other lower respiratory disease (20 sources) Dyspnea at rest; Translations: [Shortness of breath at rest] 08-10-2017 Episodic Other lower respiratory disease (2 sources) Dyspnea on exertion; Translations: [Other forms of dyspnea] Onset: 4 12-29-2023 Episodic Other lower respiratory disease (4 sources) Other forms of dyspnea; Translations: [Other forms of dyspnea] Onset: 4 Episodic Other nervous system disorders (20 sources) Neuropathy; Translations: [Neuropathy] 05-05-2018 Chronic Other nervous system disorders (4 sources) Inherited autonomic nervous system disorder; Translations: [Other disorders of autonomic nervous system] Onset: 4 09-17-2023 Chronic Other nervous system disorders (2 sources) Other disorders of autonomic nervous system; Translations: [Other disorders of autonomic nervous system] Onset: 4 Chronic Other nervous system disorders (20 sources) Other disturbances of skin sensation; Translations: [Observation of sensation] Resolved: 2 02-15-2018 Episodic Other non-epithelial cancer of skin (20 sources) History of malignant basal cell neoplasm of skin; Translations: [History of basal cell carcinoma (BCC) of skin] 12-05-2019 Episodic Other non-traumatic joint disorders (20 sources) Hip pain; Translations: [Left hip pain] Resolved: 2 02-15-2018 Episodic Other non-traumatic joint disorders (20 sources) Shoulder pain; Translations: [Left shoulder pain] Resolved: 2 03-02-2019 Episodic Comment on above: will take prednisone and nsaid with food Other non-traumatic joint disorders (20 sources) Ankle pain; Translations: [Left ankle pain] 10-01-2021 Episodic Other non-traumatic joint disorders (4 sources) Pain in left shoulder; Translations: [Left shoulder pain] Resolved: 2 10-01-2021 Episodic Comment on above: will take prednisone and nsaid with food Other nutritional; endocrine; and metabolic disorders (20 sources) Body mass index 30+ - obesity; Translations: [BMI 36.0-36.9,adult] Resolved: 2 03-02-2019 Chronic Other nutritional; endocrine; and metabolic disorders (16 sources) Morbid obesity; Translations: [Obesity, morbid, BMI 40.0-49.9] 01-24-2020 Chronic Other skin disorders (20 sources) Skin lesion; Translations: [Skin lesion] Resolved: 2 12-05-2019 Episodic Comment on above: 10mm lesion- R forea rm Other upper respiratory disease (20 sources) Allergic rhinitis; Translations: [Allergic rhinitis] 02-15-2018 Chronic Other upper respiratory disease (20 sources) Pain in throat Episodic Other upper respiratory disease (20 sources) Nasal sinus problem; Translations: [Sinus pressure] 02-15-2018 Episodic Other upper respiratory disease (20 sources) Bronchospasm; Translations: [Post-infection bronchospasm] Resolved: 2 02-15-2018 Episodic Other upper respiratory infections (20 sources) Recurrent sinusitis; Translations: [Recurrent sinus infections] 02-15-2018 Chronic Other upper respiratory infections (20 sources) Sore throat symptom; Translations: [Acute sinusitis] 02-15-2018 Episodic Comment on above: rapids were neg. Pneumonia (20 sources) Bacterial pneumonia; Translations: [Severe acute respiratory syndrome] Resolved: 1 03-20-2015 Episodic Residual codes; unclassified (20 sources) H/O: section; Translations: [ Section] 05-05-2018 Episodic Comment on above: 1998 Residual codes; unclassified (20 sources) FH: Diabetes mellitus; Translations: [Family history of diabetes mellitus] 05-05-2018 Episodic Residual codes; unclassified (20 sources) Influenza-like symptoms; Translations: [Flu-like symptoms] Resolved: 0 08-05-2017 Episodic Residual codes; unclassified (20 sources) Non-smoker; Translations: [Nonsmoker] 08-30-2020 Episodic Residual codes; unclassified (20 sources) Sleep disorder; Translations: [Sleep disorder] 06-14-2021 Episodic Comment on above: cant tolerate melato ml -- using unisom or otc meds -ok Residual codes; unclassified (8 sources) Viral syndrome; Translations: [Flu-like symptoms] Resolved: 0 09-05-2022 Episodic Rheumatoid arthritis and related disease (20 sources) Inflammatory polyarthropathy; Translations: [Inflammatory polyarthritis] 02-15-2018 Chronic Comment on above: dr lepe is rheum holding methotrexate and embrel Spondylosis; intervertebral disc disorders; other back problems (20 sources) Degeneration of lumbar intervertebral disc; Translations: [DDD (degenerative disc disease), lumbar] 05-13-2021 Chronic Spondylosis; intervertebral disc disorders; other back problems (20 sources) Sciatica; Translations: [Low back pain] Resolved: 2 08-05-2017 Episodic Unclassified (20 sources) Body mass index 40+ - severely obese; Translations: [BMI 40.0-44.9, adult] Resolved: 3 05-06-2017 Chronic Unclassified (20 sources) Breast neoplasm screening status; Translations: [Breast cancer screening] Resolved: 2 02-15-2018 Episodic Unclassified (20 sources) Needs influenza immunization; Translations: [FH: Diabetes mellitus] Resolved: 8 02-15-2018 Episodic Comment on above: 1998 Urinary tract infections (20 sources) Urinary tract infectious disease; Translations: [Acute hemorrhagic cystitis] 01-27-2020 Episodic Viral infection (20 sources) Severe acute respiratory syndrome; Translations: [SARS (severe acute respiratory syndrome)] Resolved: 1 08-30-2020 Episodic Comment on above: supportive care.no r ed flags. reviewed w/ patient. Past or Other Problems Problem Classification Problem Date Documented Date Episodic/Chronic Allergic reactions (20 sources) Urticaria; Translations: [Hives] Onset: 4 Resolved: 6 11-02-2015 Episodic Comment on above: as long as takes ant ihistamine Coronary atherosclerosis and other heart disease (20 sources) Coronary atherosclerosis and other heart disease Esophageal disorders (5 sources) Esophageal disorders Headache; including migraine (9 sources) Headache; including migraine Influenza (20 sources) Influenza Other connective tissue disease (1 source) Fibromyalgia; Translations: [Fibromyalgia] Onset: 4 Episodic Other skin disorders (20 sources) Eruption; Translations: [Rash] Onset: 4 Resolved: 2 01-11-2021 Episodic Other skin disorders (2 sources) Rash and other nonspecific skin eruption; Translations: [Rash and other nonspecific skin eruption] Onset: 4 Episodic Paralysis (1 source) Weakness of right arm; Translations: [Right arm weakness] 03-16-2020 Comment on above: takes gabapentin at night Pneumonia (20 sources) Pneumonia Unclassified (20 sources) Unclassified (20 sources) Abnormal lung sounds Unclassified (20 sources) Nonsmoker; Translations: [Non-smoker] 02-15-2018 Unclassified (20 sources) BMI 40.0-44.9, adult Unclassified (20 sources) Recurrent sinus infections Unclassified (20 sources) Sinus pressure Unclassified (20 sources) TMJ (temporomandibular joint disorder) Unclassified (20 sources) Flu-like symptoms Unclassified (20 sources) Sinusitis, acute Unclassified (20 sources) Inflammatory polyarthritis Unclassified (20 sources) Shortness of breath at rest Unclassified (20 sources) Sciatica of left side Unclassified (20 sources) Low back pain potentially associated with radiculopathy Unclassified (20 sources) Leg length discrepancy Unclassified (20 sources) Hives Unclassified (20 sources) Dehydration, moderate Unclassified (20 sources) Decreased range of motion of left lower extremity Unclassified (20 sources) Electrical shock sensation Unclassified (20 sources) Blurred vision Unclassified (20 sources) Post-infection bronchospasm Unclassified (20 sources) Unspecified Diagnosis 02-15-2018 Unclassified (20 sources) Screening status; Translations: [SCREENING FOR HYPERLIPIDEMIA (Renamed from Encounter for screening for lipoid disorders)] 02-15-2018 Unclassified (20 sources) Breast pain Unclassified (20 sources) Breast cancer screening Unclassified (20 sources) RA 02-15-2018 Unclassified (20 sources) Pregnancies (); Translations: [Pregnancies ()] 02-15-2018 Comment on above: 3. Unclassified (20 sources) TMJ (dislocation of temporomandibular joint) Unclassified (20 sources) Abortions/Miscarriages; Translations: [Abortions/Miscarriages ] 02-15-2018 Comment on above: 1. Unclassified (20 sources) Non-smoker; Translations: [Nonsmoker] 05-05-2018 Unclassified (20 sources) Upper respiratory infection, viral Unclassified (20 sources) Observation of sensation; Translations: [Electrical shock sensation] 10-18-2018 Unclassified (20 sources) BMI 36.0-36.9,adult Unclassified (20 sources) Left shoulder pain Unclassified (20 sources) Right arm weakness Unclassified (20 sources) History of basal cell carcinoma (BCC) of skin Unclassified (12 sources) UTI symptoms Unclassified (20 sources) Obesity, morbid, BMI 40.0-49.9 Unclassified (20 sources) Mouth sores Unclassified (20 sources) Abortions/Miscarriages; Translations: [Abortions/Miscarriages ] 08-30-2020 Comment on above: 1. Unclassified (20 sources) Pregnancies (); Translations: [Pregnancies ()] 08-30-2020 Comment on above: 3. Unclassified (20 sources) Cystitis, acute hemorrhagic Unclassified (20 sources) Elevated d-dimer Unclassified (20 sources) Acid reflux Unclassified (20 sources) Non-smoker Unclassified (17 sources) RA (rheumatoid arthritis) Unclassified (17 sources) Rash Unclassified (20 sources) BMI 39.0-39.9,adult Unclassified (16 sources) Osteoarthritis of both knees, unspecified osteoarthritis type Unclassified (16 sources) DDD (degenerative disc disease), lumbar Unclassified (12 sources) RLS (restless legs syndrome) Unclassified (9 sources) Cervical pain (neck) Unclassified (8 sources) BMI 38.0-38.9,adult Unclassified (15 sources) Left ankle pain Urinary tract infections (20 sources) Urinary tract infections Results Test Name Value Interpretation Reference Range Facility CT ABDOMEN PELVIS WITH IV CO NTRAST ONLYon 11-13-2023 CT ABDOMEN PELVIS WITH IV CONTRAST ONLY EXAMINATION: CT ABDOMEN PELVIS WITH IV CONTRAST ONLY HISTORY: ORDERING SYSTEM PROVIDED HISTORY: 10 weeks of pelvic pain, now w/ fever x 24 hr, TECHNOLOGIST PROVIDED HISTORY: Illness/Other Reason for exam: 10 weeks of pelvic pain, now w/ fever x 24 hr Encounter Type: Initial Additional signs and symptoms: none ORDERING SYSTEM PROVIDED DIAGNOSIS CODES: COMPARISON: None TECHNIQUE: CT examination of the abdomen and pelvis following the administration of intravenous contrast. Coronal and sagittal reformations were performed. Dose reduction techniques were achieved by using automated exposure control and/or adjustment of mA and/or kV according to patient size and/or use of iterative reconstruction technique. CONTRAST: IOPAMIDOL 370 MG IODINE/ML (76 %) INTRAVENOUS SOLUTION - 75 mL, FINDINGS: CT scan of the abdomen: Lung bases are clear. There has been a cholecystectomy. No masses or biliary ductal dilatation is seen. Spleen, pancreas, adrenal glands and kidneys are normal. Proximal bowel is normal with a small sliding hiatal hernia. CT scan of the pelvis: There is acute diverticulitis of the sigmoid colon with recent edema and inflammation of colon and mesentery. Trace amount of free fluid. No abscess or free air is seen. Bowel and appendix are unremarkable. Distal ureters, bladder, uterus and adnexa are unremarkable. Small cyst in the right ovary. There are mild degenerative changes of the lumbosacral spine. IMPRESSION: Acute uncomplicated sigmoid diverticulitis. Trace amount of free fluid. No abscess is seen. No obstruction. Small cyst in the right ovary. [employer] Workstation ID: [id number] Dictated by: FABI ALY on ThuNov 13, 2023 5:30:08 PM EDT Transcribed by: SOCORRO KUMARI on ThuNov 13, 2023 5:37:46 PM EDT Finalized by: FABI ALY on ThuNov 17, 2023 4:11:02 PM EDT [facility] Comment on above: Order Comment: Injur y/Trauma or Illness?:Illness/Other How long have you had these symptoms (acute/chronic)?:Acute Reason for exam?:10 weeks of pelvic pain, now w/ fever x 24 hr Type of Exam?:Initial Additional signs and symptoms?:none ED Prov Noteon 11-13-2023 ED Prov Note ED PROVIDER NOTE [facility] EMERGENCY [facility]PARTMENT NAME: Latia Moody AGE: 48 y.o. : 1975 VISIT DATE: 11/13/2023 CSN: [id number] PCP: Jasmeet Sexton DO Chief Complaint Patient presents with Dysuria Abdominal Pain History provided by: Patient Dysuria Chronicity: New Duration: 2 days Pain quality: Unable to specify Urinary symptoms: no discolored urine, no frequent urination, no hematuria, no hesitancy and no bladder incontinence Associated symptoms: abdominal pain and fever Associated symptoms: no flank pain, no nausea and no vomiting Risk factors: no hx of pyelonephritis, no hx of urolithiasis and no recurrent urinary tract infections Abdominal Pain Pain location: Suprapubic Chronicity: New Duration: 2 days Pain quality: aching and fullness Onset quality: Gradual Ineffective treatments: Nothing tried Associated symptoms: chills, dysuria, fatigue and fever Associated symptoms: no constipation, no diarrhea, no nausea and no vomiting Past Medical History: Diagnosis Date Arthritis Endometrial hyperplasia 2021 Fibromyalgia 2012 GERD (gastroesophageal reflux disease) Nerve damage Restless leg syndrome TMJ (dislocation of temporomandibular joint) Past Surgical History: Procedure Laterality Date bone graph put into wrist SECTION, CLASSIC CT COLONOSCOPY 03/21/2019 CT COLONOSCOPY PATELLA RELEASE AND MANIPULATION 2007 URETHRA SURGERY 1977 History reviewed. No pertinent family history. Social History Socioeconomic History Marital status: Tobacco Use Smoking status: Never Smokeless tobacco: Never Substance and Sexual Activity Drug use: Never Previous Medications Medication Sig cetirizine (ZyrTEC) 10 MG tablet 1 (one) tablet (10 mg total) every night at bedtime . diphenhydrAMINE (BENADRYL) 25 mg capsule Take 1 (one) capsule (25 mg total) by mouth as needed for itching . DULoxetine (CYMBALTA) 30 MG capsule Take 1 (one) capsule (30 mg total) by mouth 2 (two) times a day . famotidine (PEPCID) 40 MG tablet Take 1 (one) tablet (40 mg total) by mouth daily . fexofenadine (MAYELA) 180 MG tablet Take 1 (one) tablet (180 mg total) by mouth daily . folic acid/multivit-min/lutei n (CENTRUM SILVER ORAL) Take by mouth . magnesium 30 mg tablet Take 64 mg by mouth daily . omeprazole (PRILOSEC) 40 MG capsule 1 (one) capsule (40 mg total) daily . propylene glycoL (Systane Complete) 0.6 % Drop Apply 1 drop to eye 3 (three) times a day . white petrolatum-mineral oiL 94-3 % Oint Apply 1 Application to eye as needed . Allergies Allergen Reactions Codeine Hives Review of Systems Constitutional: Positive for chills, fatigue and fever. Gastrointestinal: Positive for abdominal pain. Negative for constipation, diarrhea, nausea and vomiting. Pain with bowel movements Genitourinary: Positive for dysuria and pelvic pain. Negative for flank pain and frequency. Patient Vitals for the past 24 hrs: BP Temp Temp src Pulse Resp SpO2 Height Weight 11/13/23 1618 -- 99.2 degrees F (37.3 degrees C) -- -- -- -- -- -- 11/13/23 1546 (!) 153/103 99.2 degrees F (37.3 degrees C) Temporal 98 16 98 % 5' 2 96.2 kg (212 lb) Physical Exam Vitals and nursing note reviewed. Constitutional: General: She is awake. She is not in acute distress. Appearance: Normal appearance. She is well-developed. She is not toxic-appearing or diaphoretic. Eyes: General: No scleral icterus. Extraocular Movements: Extraocular movements intact. Comments: PER, unremarkable size Neck: Trachea: No tracheal deviation. Musculoskeletal: Cervical back: Normal range of motion. Pulmonary: Effort: Pulmonary effort is normal. No respiratory distress. Abdominal: Tenderness: There is abdominal tenderness in the suprapubic area. There is no right CVA tenderness, left CVA tenderness, guarding or rebound. Negative signs include McBurney's sign. Genitourinary: Comments: declined Skin: General: Skin is warm and dry. Capillary Refill: Capillary refill takes less than 2 seconds. Neurological: General: No focal deficit present. Mental Status: She is alert. Motor: No abnormal muscle tone. Coordination: Coordination normal. Comments: Awake, alert and appropriate. Psychiatric: Mood and Affect: Mood normal. Mood is not anxious or depressed. Behavior: Behavior normal. Behavior is cooperative. . Laboratory & Radiographic Imaging (if done): Results for orders placed or performed during the hospital encounter of 11/13/23 POC CBC and Differential Result Value Ref Range WBC 14.37 (H) 4.50 - 11.00 K/mcL RBC 4.87 4.00 - 5.20 M/mcL Hemoglobin 14.0 12.0 - 16.0 g/dL Hematocrit 43.3 36.0 - 46.0 % MCV 88.9 80.0 - 100.0 fL MCH 28.7 26.0 - 34.0 pg MCHC 32.3 31.0 - 37.0 g/dL RDW - CV 13.0 11.6 - 14.8 % Platelets 277 150 - 400 K/mcL MPV 10.1 9.4 - 12.4 fL Neutrophils 72.6 % Lymphocytes 15.4 (more content not included)... Normal [facility] POC BASIC METABOLIC PANEL - [place] 11-13-2023 Chloride [Moles/Vol] 109 mmol/L High 98-108 [facility] Comment on above: Order Comment: [facility] has implemented the eGFR calculation approach that does not have a coefficient for race that conforms to the NKF-ASN Task Force Recommendations. CO2 [Moles/Vol] 24 mmol/L Normal 21-32 [facility] Comment on above: Order Comment: [facility] has implemented the eGFR calculation approach that does not have a coefficient for race that conforms to the NKF-ASN Task Force Recommendations. Creatinine [Mass/Vol] 0.72 mg/dL Normal 0.40-1.10 [facility] Comment on above: Order Comment: [facility] has implemented the eGFR calculation approach that does not have a coefficient for race that conforms to the NKF-ASN Task Force Recommendations. Glucose [Mass/Vol] 89 mg/dL Normal 65-99 [facility] Comment on above: Order Comment: [facility] has implemented the eGFR calculation approach that does not have a coefficient for race that conforms to the NKF-ASN Task Force Recommendations. POC GFR 102 mL/min/1.73 m2 Normal >=60 [facility] Comment on above: Order Comment: [facility] has implemented the eGFR calculation approach that does not have a coefficient for race that conforms to the NKF-ASN Task Force Recommendations. Result Comment: Carmen mated GFR was calculated using the 2020 CKD-EPI creatinine equation. POC IONIZED CALCIUM 4.5 mg/dL Normal 4.5-5.3 [facility] Comment on above: Order Comment: [facility] has implemented the eGFR calculation approach that does not have a coefficient for race that conforms to the NKF-ASN Task Force Recommendations. Potassium [Moles/Vol] 4.0 mmol/L Normal 3.5-5.1 [facility] Comment on above: Order Comment: [facility] has implemented the eGFR calculation approach that does not have a coefficient for race that conforms to the NKF-ASN Task Force Recommendations. Sodium [Moles/Vol] 143 mmol/L Normal 135-145 [facility] Comment on above: Order Comment: [facility] has implemented the eGFR calculation approach that does not have a coefficient for race that conforms to the NKF-ASN Task Force Recommendations. Urea nitrogen [Mass/Vol] 17 mg/dL Normal 8-25 [facility] Comment on above: Order Comment: [facility] has implemented the eGFR calculation approach that does not have a coefficient for race that conforms to the NKF-ASN Task Force Recommendations. POC CBC AND DIFFERENTIALon 0 11-13-2023 BASOPHILS ABSOLUTE COUNT 0.06 K/mcL Normal 0.00-0.30 [facility] Basophils/100 WBC (Bld) 0.4 % Normal [facility] Eosinophils (Bld) [#/Vol] 0.13 10*3/uL Normal 0.00-0.50 [facility] Eosinophils/100 WBC (Bld) 0.9 % Normal [facility] Erythrocyte distribution width (RBC) [Ratio] 13.0 % Normal 11.6-14.8 [facility] Hematocrit (Bld) [Volume fraction] 43.3 % Normal 36.0-46.0 [facility] Hemoglobin (Bld) [Mass/Vol] 14.0 g/dL Normal 12.0-16.0 [facility] IG ABSOLUTE 0.02 K/mcL Normal 0.00-0.30 [facility] IG PERCENT 0.10 % Normal [facility] Comment on above: Result Comment: The IG parameter is the percentage of metamyelocytes, myelocytes and promyelocytes. An immature granulocyte count (IG) of 1% or more suggests the possibility of infection, an IG count of 3% is very likely related to an infection. Lymphocytes (Bld) [#/Vol] 2.21 10*3/uL Normal 0.90-4.00 [facility] Lymphocytes/100 WBC (Bld) 15.4 % Normal [facility] MCH (RBC) [Entitic mass] 28.7 pg Normal 26.0-34.0 [facility] MCV (RBC) [Entitic vol] 88.9 fL Normal 80.0-100.0 [facility] MEAN CORPUSCULAR HEMOGLOBIN CONC 32.3 g/dL Normal 31.0-37.0 [facility] Monocytes (Bld) [#/Vol] 1.53 10*3/uL High 0.30-0.90 [facility] Monocytes/100 WBC (Bld) 10.6 % Normal [facility] NEUTROPHILS ABSOLUTE COUNT 10.42 K/mcL High 1.70-7.00 [facility] Neutrophils/100 WBC (Bld) 72.6 % Normal [facility] Platelet mean volume (Bld) [Entitic vol] 10.1 fL Normal 9.4-12.4 [facility] Platelets (Bld) [#/Vol] 277 10*3/uL Normal 150-400 [facility] RBC (Bld) [#/Vol] 4.87 10*6/uL Normal 4.00-5.20 [facility] WBC (Bld) [#/Vol] 14.37 10*3/uL High 4.50-11.00 [facility] POC , URINE - [facility] n 11-13-2023 Beta HCG ( test) Ql (U) Negative Normal Negative [facility] Comment on above: Order Comment: Dilut e urine specimens, as indicated by a low specific gravity (<1.010) may not contain it sales representative levels of hCG. If is still suspected, a serum test or repeat urine test using a first morning urine specimen should be considered. POC URINALYSIS DIPSTICK,AUTO - FLAVIOSon 11-13-2023 POC BILIRUBIN, URINE Negative Normal Negative [facility] POC BLOOD, URINE Trace-intact Abnormal Negative [facility] POC GLUCOSE, URINE Negative Normal Negative [facility] POC KETONES, URINE Negative Normal Negative [facility] POC LEUKOCYTE ESTERASE, URINE Negative Normal Negative [facility] POC NITRITE, URINE Negative Normal Negative [facility] POC PH, URINE 6.0 Normal 5.0-7.0 [facility] POC PROTEIN, URINE Negative Normal Negative [facility] POC SPECIFIC GRAVITY <= Normal 1.005-1.025 [facility] POC UROBILINOGEN 0.2 mg/dL Normal < 2.0 [facility] CRP [Mass/Vol]on 09-17-2023 Interpretation and review of laboratory results Normal [facility] CRP, INFLAMMATIONon 09-17-19 24 CRP [Mass/Vol] 7.4 mg/L Normal 0.0-10.0 [facility] Comment on above: Performed By: #### [id number] #### [facility] [address] [place], [place] [address] Garrison Cervantes M.D. [id number] CRP, Inflammationon 09-17-19 24 CRP [Mass/Vol] 7.4 mg/L 0.0 - 10.0 mg/L [facility] ESR Westergren method (Bld) [Velocity]on 09-17-2023 ESR (Bld) [Velocity] 12 mm/h [facility] Interpretation and review of laboratory results Normal [facility] SEDIMENTATION RATEon 024 SEDIMENTATION RATE, ERYTHROCYTE 12 mm/hr Normal 0-30 [facility] Comment on above: Performed By: #### [id number] #### [facility] [address] [place] [address] Garrison Cervantes M.D. [id number] TRYPTASEon 09-17-2023 [facility] TRYPTASE - TRYPT 4.4 ng/mL Normal <11.5 [facility] Comment on above: Result Comment: Test Performed by: [facility] [address] [place] [address] Crm Technical Lead: Akbar Pineda M.D. Ph.D.; CLIA# [id number] Performed By: #### 4 [id number] #### [facility] [address] [facility] [address] [place] [facility] COVID 19 (ONLY) RAPI D ([id number])Ordered By: Lily Kendrick on 09-05-2022 SARS-CoV-2 (COVID-19) RNA ALEX+probe Ql (Unsp spec) Negative Normal [facility] Work Phone: Inhouse FLU A+B DIRECT AG, ( RAPID) ([id number])Ordered By: Lily Kendrick on 09-05-2022 FLUAV+FLUBV Ag Ql (Unsp spec) Negative Normal [facility]; [facility] Work Phone: Rapid Strep Test, Office ([phone])Ordered By: Lily Kendrick on 09-05-2022 S. pyogenes Ag EIA Ql (Throat) Negative Normal [facility]; [facility] Work Phone: THROAT CULTURE ([id number])Ordere d By: Shopfitter on 09-05-2022 Bacteria identified Respiratory culture Nom (Unsp spec) Final report Normal [facility]; [facility] Work Phone: Comment on above: PERFORMED BY: [facility] [id number] Information: SRC:TH Bacteria identified Respiratory culture Nom (Unsp spec) RRF Normal [facility]; [facility] Work Phone: Comment on above: Routine respiratory nicole PERFORMED BY: [facility] [id number] Information: SRC:TH COVID 19 (ONLY) RAPID ([id number] )Ordered By: Nona Stock on 08-01-2022 SARS-CoV-2 (COVID-19) RNA ALEX+probe Ql (Unsp spec) Positive Normal [facility]; [facility] Work Phone: Inhouse FLU A+B DIRECT AG, ( RAPID) ([id number])Ordered By: Nona Stock on 08-01-2022 FLUAV+FLUBV Ag Ql (Unsp spec) Negative Normal [facility]; [facility] Work Phone: INHOUSE COVID 19 (ONLY) RAPI D ([id number])Ordered By: Florence Loera on 07-09-2022 SARS-CoV-2 (COVID-19) RNA ALEX+probe Ql (Unsp spec) Negative Normal [facility]; [facility] Work Phone: Inhouse FLU A+B DIRECT AG, ( RAPID) ([id number])Ordered By: Florence Loera on 07-09-2022 FLUAV+FLUBV Ag Ql (Unsp spec) Negative Normal [facility]; [facility] Work Phone: Urinalysis, Office ([id number])Or dered By: Lindsey Guardado on 01-11-2021 Bilirubin Ql (U) Negative [facility]; [facility] Work Phone: Glucose Test strip (U) [Mass/Vol] Negative Normal [facility]; [facility] Work Phone: Hemoglobin Ql (U) Negative Normal [facility]; [facility] Work Phone: Ketones Ql (U) Negative Normal [facility] Work Phone: Leukocyte esterase Test strip Ql (U) Negative Normal [facility]; [facility] Work Phone: Nitrite Ql (U) Negative Normal [facility]; [facility] Work Phone: pH (U) 5.0 [pH] Normal [facility]; [facility] Work Phone: Protein Ql (U) Negative Normal [facility]; [facility] Work Phone: Specific gravity (U) [Rel density] 1.020 1 Normal [facility]; [facility] Work Phone: Urobilinogen (24H U) [Mass/Time] 2 mg/dL Normal [facility]; [facility] Work Phone: URINE BRICE CULTURE-IDENTIFICA [place] ([id number])Ordered By: Shopfitter on 08-30-2020 Bacteria identified Cx Nom (U) Final report Abnormal [facility]; [facility] Work Phone: Comment on above: PATIENT NOT FASTINGP ERFORMED BY: [facility] [id number] [facility] [id number] Information: SRC: Bacteria identified Cx Nom (U) Escherichia coli Abnormal [facility]; [facility] Work Phone: Comment on above: 25,000-50,000 colony forming units per mLCefazolin <=4 ug/mLCefazolin with an IMELDA <=16 predicts susceptibility to the oral agentscefaclor, cefdinir, cefpodoxime, cefprozil, cefuroxime, cephalexin,and loracarbef when used for therapy of uncomplicated urinary tractinfections due to E. coli, Klebsiella pneumoniae, and Proteusmirabilis. PATIENT NOT FASTINGP ERFORMED BY: [employer] [place] [id number] Information: SRC: Other Antibiotic [Susc] MIHEAD Normal [facility]; [facility] Work Phone: Comment on above: S = Susceptible; I = Intermediate; R = Resistant P = Positive; N = Negative MICS are expressed in micrograms per mL Antibiotic RSLT#1 RSLT#2 RSLT#3 RSLT#4Amoxicillin/Clavulanic Acid SAmpicillin RCefepime SCeftriaxone SCefuroxime ICiprofloxacin RErtapenem SGentamicin SImipenem SLevofloxacin RMeropenem SNitrofurantoin SPiperacillin/Tazobactam STetracycline STobramycin STrimethoprim/Sulfa R PATIENT NOT FASTINGP ERFORMED BY: [employer] [place] [id number] Information: SRC: Urinalysis, Office ([id number])Or dered By: Lindsey Guardado on 08-30-2020 Bilirubin Ql (U) Negative Normal [facility]; [facility] Work Phone: Glucose Test strip (U) [Mass/Vol] Negative Normal [facility]; [facility] Work Phone: Hemoglobin Ql (U) ++ Abnormal [facility]; [facility] Work Phone: Ketones Ql (U) Small Normal [facility]; [facility] Work Phone: Leukocyte esterase Test strip Ql (U) Large Normal [facility]; [facility] Work Phone: Nitrite Ql (U) Negative Normal [facility]; [facility] Work Phone: pH (U) 6.0 [pH] Normal [facility]; [facility] Work Phone: Protein Ql (U) Negative Normal [facility]; [facility] Work Phone: Specific gravity (U) [Rel density] 1.020 1 Normal [facility]; [facility] Work Phone: Urobilinogen (24H U) [Mass/Time] 2 mg/dL Normal [facility]; [facility] Work Phone: CORONAVIRUS 2019 BY PCRon CORONAVIRUS 2019,PCR DETECTED Abnormal Not Detected [facility] Comment on above: Order Comment: COVID CALLED TO [place], 03/06/2020 10:42 Result Comment: . This assay is designed to detect the N, ORF1ab and/or S genes of SARS-CoV-2 via nucleic acid amplification. A Negative (NOT DETECTED) result does not preclude 2019-nCoV infection since the adequacy of sample collection and/or low viral burden may result in presence of viral nucleic acids below the clinical sensitivity of this test method. Negative (NOT DETECTED) result should not be used as the sole basis for treatment or other patient management decisions. Rather negative results should be combined with clinical observations, patient history, and epidemiological information to make patient management decisions. Fact sheet for providers: https://www.fda.gov/media/906718/download Fact sheet for patients: https://www.fda.gov/media/998442/download This test has received FDA Emergency Use Authorization (EUA) and has been verified by [facility] ([facility]). This test is only authorized for the duration of time that circumstances exist to justify the authorization of the emergency use of in vitro diagnostic tests for the detection of SARS-CoV-2 virus and/or diagnosis of COVID-19 infection under section 564(b)(1) of the Act, 21 U.S.C. 360bbb-3(b)(1), unless the authorization is terminated or revoked sooner. [facility] is certified under CLIA-88 as qualified to perform high complexity testing. Testing is performed in the [facility] laboratories [place] [address] [place] [address]. COVID CALLED TO [place], 03/06/2020 10:42 Performed By: #### C OV19 #### [facility] [address] [place] [address] Covid 19 Resultson 0 Covid 19 Results Adult POSITIVE COVID -19 Test Talking Points Your local Health Department may be in contact, as they are tracking all POSITIVE patients. Limit your contact with others (HOME ISOLATION). You should be home quarantined unless your local public health department tells you otherwise. If you do not hear from the public health department, you should remain in quarantine at home until it has been at least 10 days since symptoms started AND no fever for at least 24 hours without fever reducing medicine AND your symptoms are improving. If you are a employee, Employee Health will contact you for return to work instructions. As much as possible, stay in a specific room and away from other people in your home. Also, you should use a separate bathroom if possible. People who do not have a need to be in your home should not visit. Try to stay in places in the home that have good airflow. Allow getting fresh air when possible. It is very important to cover their mouth and nose with a tissue when coughing or sneezing. After coughing or sneezing or cleaning up used tissues, immediately wash your hands with soap and water for at least 20 seconds. If soap and water are not available, clean hands with an alcohol-based hand global climate change analyst that contains at least 60% alcohol. Remember to clean your hands often. Avoid sharing personal household items such as dishes, drinking glasses, cups, eating utensils, towels, or bedding with other people or pets in your home. After you use these items, they should be washed with soap and water. Clean all high-touch surfaces (tabletops, doorknobs, bathroom fixtures, toilets, phones, keyboards, tablets, and bedside tables) every day with antibacterial cleaning solutions such as Lysol wipes, bleach, cleansers, etc. Immediately clean any surfaces that may have your blood, poop, or body fluids like tears, drool, urine, sweat, and mucous on them. Use antibacterial cleaning solutions such as Lysol wipes, bleach, cleansers, etc. Wash laundry thoroughly. Immediately remove and wash clothes or bedding that have blood, poop, or body fluids on them. Read and follow directions on labels of laundry detergent and/or clothing items. If possible, mask whenever you leave your room. Recommendations for those caring for someone with COVID-19 Wash your hands frequently with soap and water for 20 seconds or use an alcohol-based hand global climate change analyst that contains at least 60% alcohol. Avoid touching your face Do not permit visitors who do not have an essential need to be in your home. Mask when caring for these individuals. Household members caring for a COVID-19 positive patient should consider self-quarantine for 14 days. If symptoms develop, testing for COVID-19 should be considered.. Revised 7.28.20 Electronic Signatures: [employer], [employer] (ADMIN) (Signature pending) Authored Last Updated: 06-Mar-2020 03:08 by [employer], [employer] (ADMIN) [facility] CORONAVIRUS 2019 BY PCRanival DATE OF SYMPTOM ONSET [YYYYMMDD]? [id number] [facility] Comment on above: Order Comment: COVID CALLED TO [facility], 03/06/2020 10:42 Performed By: #### C OV19 #### [facility] [address] [place] [address] EMPLOYED IN HEALTHCARE? No [facility] Comment on above: Order Comment: COVID CALLED TO [facility], 03/06/2020 10:42 Performed By: #### C OV19 #### [facility] [address] [place] [address] FIRST COVID NASAL SWAB TEST? Yes [facility] Comment on above: Order Comment: COVID CALLED TO [facility], 03/06/2020 10:42 Performed By: #### C OV19 #### [facility] [address] [place] [address] HOSPITALIZED (OR PLANNED TO BE ADMITTED)? Yes [facility] Comment on above: Order Comment: COVID CALLED TO [place], 03/06/2020 10:42 Performed By: #### C OV19 #### [facility] [address] [place] [address] ICU? No [facility] Comment on above: Order Comment: COVID CALLED TO [place], 03/06/2020 10:42 Performed By: #### C OV19 #### [facility] [address] [place] [id number] Lab Specimen Source Nasal, Nasopharyngeal [facility] Comment on above: Order Comment: COVID CALLED TO ALANIC, 03/06/2020 10:42 Performed By: #### C OV19 #### [facility] [address] [place] [address] ? No [facility] Comment on above: Order Comment: COVID CALLED TO ALANIC, 03/06/2020 10:42 Performed By: #### C OV19 #### [facility] [address] [place] [address] RESIDENT IN [facility] CARE SETTING? No [facility] Comment on above: Order Comment: COVID CALLED TO ALANIC, 03/06/2020 10:42 Performed By: #### C OV19 #### [facility] [address] [place] [id number] SYMPTOMATIC DEFINED BY [facility]? Yes [facility] Comment on above: Order Comment: COVID CALLED TO ALANIC, 03/06/2020 10:42 Performed By: #### C OV19 #### [facility] [address] [place] [id number] Provider Note - ED v2on 11 Provider Note - ED v2 Provider Note - ED v2: Chart Review: HISTORY OF PRESENTING ILLNESS LATIA is a 44 year old Female and was seen by me at 05-Mar-2020 16:44 for a chief complaint of cold symptoms. Other complaints include: Patient presents with 5 days of increased temperature as high as 102.0, nausea, sinus drainage, body aches, and great fatigue. She has been taking Tylenol and ibuprofen for her fever until recently when she became really nauseous. She denies any exposure to Covid 19.. Triage Information: Most recent Vital Sign Value Date PAST MEDICAL HISTORY ATTESTATION: I have reviewed and confirmed nurse's/medic's notes for patient's medications, allergies, medical history, and surgical history ALLERGIES/INTOLERANCES: Allergy Allergen: codeine Type: Drug Reaction: Itching HEALTH HISTORY: No documented data. OUTPATIENT MEDICATIONS: Home Medications Review Status for Reconciliation: Complete Med Status: Patient Currently Takes Medications Drug Name: ZyrTEC Instructions: null Drug Name: omeprazole Instructions: null Drug Name: Multi Vitamin+ Instructions: null Drug Name: ondansetron 4 mg oral disintegrating strip Instructions: 1 each orally 3 times a day SIGNIFICANT EVENTS: Past Surgical History Description:RIGHT HIP, RIGHT WRIST PATELLA RELEASE RT KNEE Description:, CHOLECYSTECTOMY Social/Behavioral Description:PT DENIES FX ARTIST: Is : no Is : no REVIEW OF SYSTEMS CONSTITUTIONAL: POSITIVE for: chills and weakness Negative for: fever ENMT Nose: Negative for: congestion and discharge Throat/Neck: Negative for: throat pain CARDIOVASCULAR: Negative for: chest pain and palpitations RESPIRATORY: Negative for: cough and wheezing GASTROINTESTINAL: POSITIVE for: nausea; All other systems reviewed and are negative RESULTS/VITAL SIGNS VITAL SIGNS: T PRBP SpO2O2(LPM) %FiO2 Method 05-Mar-2020 16:00:[id number] PHYSICAL EXAM CONSTITUTIONAL: Toxic appearing. Alert and oriented x3. Actively rocking to landers off vomiting. CARDIOVASCULAR: Normal rate, regular rhythm. Heart sounds S1, S2. No murmurs, rubs or gallops. PMI non-displaced. RESPIRATORY: Breath sounds clear and equal bilaterally. SKIN: Pale, almost green in appearance. CLINICAL IMPRESSION Diagnosis/Annotation: Diagnosis: COVID-19, influenza Local presentation and exam are consistent with either COVID-19 or influenza. I swabbed for COVID-19. Discussed with patient need to quarantine until results. If negative most likely diagnosis is influenza which she is past the number of days to treat. Provided an antiemetic so that she is able to take Tylenol or ibuprofen for her temperature. Discussed maintaining hydration and quality nutrition for the duration of symptoms. Patient verbalized understanding of plan of care. Dispostion: discharged Type: home ATTESTATION CRITICAL CARE TIME Is this a critically ill patient: no Electronic Signatures: Rosalind Collier (DRILLING MANAGER-SUPERVISOR QUALITY CONTROL) (Signed 05-Mar-2020 16:49) Authored: HPI, PMH, ROS, PE, Results/Vital Signs, Clinical Impression, Attestation, Chart Review, Scores Last Updated: 05-Mar-2020 16:49 by Rosalind Collier (DRILLING MANAGER-SUPERVISOR QUALITY CONTROL) [facility] PT Progress Noteon 0 PT Progress Note Therapy Diagnosis Assessed Low back pain (724.2) (M54.5) Plan Goals: Goals set and discussed today. 1. Independent HEP to allow for 50% reduction in max ADL C/C sx (8) 2-3wks 2. 0/10 night time sx to allow for uninterrupted sleep x1wk (11/07) 2-3wks 3. Survey score improvement from 38% to 30% (MARIANO) 3-4wks 4. Strength increase to allow for improved ADL carrying, stdg (from gr3+ to gr4+ abdominals) 3-4wks 5. ROM increase to allow for improved ADL car transfers, dressing lowers (from painful SBB to reduced pain) 3-4wks Planned interventions include: aquatic therapy, cryotherapy, dry needling, education/instruction, gait training, home program, hot pack, kinesiotaping, manual therapy, self care/home management and therapeutic exercises. Frequency and duration: 2 time(s) a week, for 4 weeks, for 8 visits. Potential to achieve rehab goals is fair: chronic condition Continue progressing activities to reduce pain during daily chores and improve stg tolerance. Progress with POC, as tolerated. Assessment Reviewed HEP and discussed TrA engagement with ex's. Deferred piriformis stretch as patient felt the stretch increased her pain -> will resume as tolerated. Mild fatigue following treatment but no increase in pain. Adult Risk Screening There are no spiritual/cultural practices/values/needs that are important to know Initial Fall Risk Screening: LATIA has fallen in the last 6 months. She has fallen due to trip and fall. Her fall did not result in injury. LATIA does not have a fear of falling. She does not need assistance with sitting, standing or walking. Does not need assistance walking in her home. She does not need assistance in an unfamiliar setting. The patient is not using an assistive device. Fall Risk Screening: Patient is identified as a fall risk. Low: current pain. Care Plan: Low Risk: Environmental for all patients and low risk patients: Offer assistance as needed or requested, keep environment free of obstacles, keep floor clean and dry, keep room lighting, wheelchair brakes on, bed/ stretcher locked and in low position if applicable, non-slip footwear if applicable, walker/cane available if needed, side rails up if applicable and pre-emptive toileting. Pain Scale: On a scale of 0 to 10, the patient rates the pain at 5. Please identify location of pain: left low back. Pain Quality: aching, dull, pressure, spasm and tightness. The pain makes it hard for the patient to do these things: walking, exercise, sleep, sexual activity, work, house work, relationships with family or friends and self-care (bathing, dressing, eating). Insurance Insurance reviewed Visit number: 3 [place] Evaluating therapist Brandon Best PT. M54.5 Subjective Patient reports:. I was super sore after the last session and even sore into my groin area on the left. I do feel better this morning and I'm not in as much pain like yesterday. The ex's today didn't seem to flare things up. Precautions: Fall Risk: low Pertinent medical HX includes: RA; OA; neuropathy; FM. Treatment Time in clinic started at 1000 Time in clinic ended at 1041 Total time in clinic is 41 minutes. Total timed code time is 39 minutes. Therapeutic exercise (11101): timed minutes 39, units 3 . TrA in plantigrade 5 x5 TrA in hooklying 5 x10 LTR 5 x10 each side Supine piriformis stretch, with strap and assist of other leg 20 x3 B X TrA hooklying july 2x10 TrA w/SLR x10 ea LE Mid Rows w/TrA, teal tube 2x10 Seated H. abduction w/TrA, lt green band, 2x10 L UE Seated H. adduction w.TrA, lt green band, 2x10 L UE. Provided today:. 02/27/20 Patient to incorporate TrA into her daily posture. 'Scores and Scales' Signatures Electronically signed by : Romeo Chambers PTA; Feb 29 2020 10:55AM EST (Author) Electronically signed by : Tim Best PT; Feb 29 2020 2:59PM EST [facility] PT Progress Noteon 0 PT Progress Note Therapy Diagnosis Assessed Low back pain (724.2) (M54.5) Plan Goals: Goals set and discussed today. 1. Independent HEP to allow for 50% reduction in max ADL C/C sx (8) 2-3wks 2. 0/10 night time sx to allow for uninterrupted sleep x1wk (11/07) 2-3wks 3. Survey score improvement from 38% to 30% (MARIANO) 3-4wks 4. Strength increase to allow for improved ADL carrying, stdg (from gr3+ to gr4+ abdominals) 3-4wks 5. ROM increase to allow for improved ADL car transfers, dressing lowers (from painful SBB to reduced pain) 3-4wks Planned interventions include: aquatic therapy, cryotherapy, dry needling, education/instruction, gait training, home program, hot pack, kinesiotaping, manual therapy, self care/home management and therapeutic exercises. Frequency and duration: 2 time(s) a week, for 4 weeks, for 8 visits. Potential to achieve rehab goals is fair: chronic condition Continue to progress core ex's for pain reduction and ease of standing ADL's. -MA. Assessment Patient identified by name AND . Patient wore a mask during treatment d/t Covid-19 precautions. Treatment consisted of ther ex's for trunk ROM and core strengthening. Patient with fair demo of TrA isometric. Required verbal cues throughout treatment to maintain with ex's. Patient has difficulty doing ex's with right UE and some ex's need modified. Decreased pain and stiffness post treatment. Interdisciplinary Team Communication: Physical Therapy . Response to treatment: decreased pain and improved knowledge and understanding of condition. Adult Risk Screening There are no spiritual/cultural practices/values/needs that are important to know Initial Fall Risk Screening: LATIA has fallen in the last 6 months. She has fallen due to trip and fall. Her fall did not result in injury. LATIA does not have a fear of falling. She does not need assistance with sitting, standing or walking. Does not need assistance walking in her home. She does not need assistance in an unfamiliar setting. The patient is not using an assistive device. Fall Risk Screening: Patient is identified as a fall risk. Low: current pain. Care Plan: Low Risk: Environmental for all patients and low risk patients: Offer assistance as needed or requested, keep environment free of obstacles, keep floor clean and dry, keep room lighting, wheelchair brakes on, bed/ stretcher locked and in low position if applicable, non-slip footwear if applicable, walker/cane available if needed, side rails up if applicable and pre-emptive toileting. Pain Scale: On a scale of 0 to 10, the patient rates the pain at 7. Please identify location of pain: left low back. Pain Quality: aching, dull, pressure, spasm and tightness. The pain makes it hard for the patient to do these things: walking, exercise, sleep, sexual activity, work, house work, relationships with family or friends and self-care (bathing, dressing, eating). Insurance Insurance reviewed Visit number: 2 [place] Evaluating therapist Brandon Best PT. M54.5 Subjective Patient reports:. Reports her back is stiff today. Pain level at 7/10 with movement. Minor pain when sitting. Her pain is located on left PSIS area and across the center of her low back. Pain decreased to 6/10 and stiffness decreased. Home program performing as directed: Yes. Precautions: Fall Risk: low Pertinent medical HX includes: RA; OA; neuropathy; FM. Treatment Time in clinic started at 8:30 am Time in clinic ended at 9:15 am Total time in clinic is 45 minutes. Total timed code time is 43 minutes. Therapeutic exercise (55043): timed minutes 43, units 3 . TrA in plantigrade 5 x5 (N) TrA in hooklying 5 x10 LTR 5 x10 each side Supine piriformis stretch, with strap and assist of other leg 20 x3 B TrA hooklying july 2x10 (N) TrA w/SLR x10 ea LE (N) Mid Rows w/TrA, teal tube 2x10 (N) Seated H. abduction w/TrA, lt green band, 2x10 L UE Seated H. adduction w.TrA, lt green band, 2x10 L UE. Provided today:. 02/27/20 Patient to incorporate TrA into her daily posture. 'Scores and Scales' Signatures Electronically signed by : Ness Singleton PTA; Feb 27 2020 9:41AM EST (Author) Electronically signed by : Tim Best, PT; Feb 27 2020 10:05AM EST [facility] Initial Evaluationon 02-02 PT Initial Evaluation Therapy Diagnosis Assessed Low back pain (724.2) (M54.5) Plan of Care Goals: Goals set and discussed today. 1. Independent HEP to allow for 50% reduction in max ADL C/C sx (8/10) 2-3wks 2. 0/10 night time sx to allow for uninterrupted sleep x1wk (11/07) 2-3wks 3. Survey score improvement from 38% to 30% (MARIANO) 3-4wks 4. Strength increase to allow for improved ADL carrying, stdg (from gr3+ to gr4+ abdominals) 3-4wks 5. ROM increase to allow for improved ADL car transfers, dressing lowers (from painful SBB to reduced pain) 3-4wks Planned interventions include: aquatic therapy, cryotherapy, dry needling, education/instruction, gait training, home program, hot pack, kinesiotaping, manual therapy, self care/home management and therapeutic exercises. Frequency and duration: 2 time(s) a week, for 4 weeks, for 8 visits. Potential to achieve rehab goals is fair: chronic condition Plan of care was developed with input and agreement by the patient. Assessment C/C sx for 3yrs. Worse since 02/02/20. Films were taken (no results yet) and MRI pending. maybe L/S junction degen vs L SI involvement (no pelvic obliquity noted via palpation). Most C/C sx with stdg lumbar extension ROM. Will continue with land based flexion bias core stabiliity training. Previous pool therapy did not resolve C/C sx. Will continue to monitor for pelvic obliquity/leg length difference. Clinical Presentation: Stable and/or uncomplicated characteristics. Level of Complexity: low Problem List: activity limitations, ADLs/IADLs/self care skills, decreased functional level, decreased knowledge of HEP, decreased knowledge of precautions, fall risk, gait/locomotion, pain, posture, range of motion/joint mobility, strength and transfers. Reason For Visit Initial Evaluation . LBP. Referred by: Espinoza Mccabe Adult Risk Screening There are no spiritual/cultural practices/values/needs that are important to know Initial Fall Risk Screening: LATIA has fallen in the last 6 months. She has fallen due to trip and fall. Her fall did not result in injury. LATIA has a fear of falling. She does not need assistance with sitting, standing or walking. Does not need assistance walking in her home. She does not need assistance in an unfamiliar setting. The patient is not using an assistive device. Fall Risk Screening: Patient is identified as a fall risk. Low: current pain. Care Plan: Low Risk: Environmental for all patients and low risk patients: Offer assistance as needed or requested, keep environment free of obstacles, keep floor clean and dry, keep room lighting, wheelchair brakes on, bed/ stretcher locked and in low position if applicable, non-slip footwear if applicable, walker/cane available if needed, side rails up if applicable and pre-emptive toileting. Pain Scale: On a scale of 0 to 10, the patient rates the pain at 8. Please identify location of pain: left low back. Insurance Insurance reviewed Visit number: 1 [place] Evaluating therapist Brandon Best PT. M54.5 Subjective Current Episode of Functional Impairment and/or Pain Date of onset: 02/02/20 Mechanism of Injury:. hip/LB sx for 3yrs. Medical Screening: Reviewed medical history form with patient and medical screening assessed. Current Medical Management:. PT for hip; chirop for hip; films were taken, and MRI pending; now on oral steroids. Precautions: Fall Risk: low Pertinent medical HX includes: RA; OA; neuropathy; FM. Functional Assessment Prior level of function: PAINFUL, DIFFICULT, OR ALTERED ADL (marked with an xx ) sleep--XX sitting-- sit to standing transfers--XX car transfers--XX standing--XX walking--XX carrying-- stairs-- dressing lowers--XX driving-- dressing uppers-- reaching---- handling objects-- other-- . Patient stated goal(s) for treatment include: relieving pain , increasing mobility , walking with a normal gait , reducing symptoms , reducing/preventing future occurrences and learning preventative care measures . 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 Current Status: unchanged. Patient Awareness: Patient is aware of her diagnosis and prognosis. Personal Factors That May Impact Care:. ID confirmed with B-day; speaks tanzanian No obtrusive barriers to learning identified/observed. Objective Ortho Observation Palpation: Elis Myrick/S junction area discomfort with palpation also L SI area discomfort with PA mob pressure neg leg elngth diff nor ASIS asymmetry. ROM / Joint Mobility (Range of Motion in degrees) Lumbar: (Jeter = P! Denotes Pain with Movement) Extension: Active WFL. Flexion: Active WFL. Side Bend: R Active WFL, L Active WFL. Most LLBP with SBB. Treatment Time in clinic started at 3:50 pm Time in clinic ended at 4:40 pm Total time in clinic is 50 minutes. Total timed code time is 12 minutes. Treatment Performed Today:. hooklying TA set 10 x 2 count hold LTR x10 pirif stretch R/L 30 ea seated Hadd with TA set x10 ea blue pelvic obliquity/leg length difference?? (MET) DN-??. Evaluation Code: 94845 PT Eval: Low Complexity, 35 min(s). Timed: 93247 Therapeutic Exercises, 12 min(s), 1 unit(s). Resources provided today: HEP handout; Tband. Signatures Electronically signed by : Tim Best PT; Feb 22 2020 4:36PM EST (Author) [facility] [employer] Therapy Communicationon 02-02 Therapy Communication Message LATIA MOODY was (D/C)- last seen: . Latia has been seen in clinical physical therapy on 02/21 to 02/29/20 for 3 visit (s) ; there has been no further visits attended; D/C from clinic PT. Signatures Electronically signed by : Tim Best PT; May 24 2020 10:46AM EST (Author) Normal [employer] URINE BRICE CULTURE-FIDEL COL C OUNT (04547)Ordered By: Shopfitter on 01-24-2020 Bacteria identified Cx Nom (U) Final report Abnormal [facility] Work Phone: Comment on above: PATIENT NOT FASTINGP ERFORMED BY: CB [facility] [id number] [facility] [id number] Information: SRC:UC Bacteria identified Cx Nom (U) MUG Normal [facility] Work Phone: Comment on above: Mixed urogenital jimmie ra2,000 Colonies/mL S = Susceptible; I = Intermediate; R = Resistant P = Positive; N = Negative MICS are expressed in micrograms per mL Antibiotic RSLT#1 RSLT#2 RSLT#3 RSLT#4Amoxicillin/Clavulanic Acid SAmpicillin RCefepime SCeftriaxone SCefuroxime SCiprofloxacin RErtapenem SGentamicin SImipenem SLevofloxacin RMeropenem SNitrofurantoin SPiperacillin/Tazobactam STetracycline STobramycin STrimethoprim/Sulfa R PATIENT NOT FASTINGP ERFORMED BY: [employer] [id number] [facility] [id number] Information: SRC: Bacteria identified Cx Nom (U) Escherichia coli Abnormal [facility] Work Phone: Comment on above: Greater than 100,000 colony forming units per mLCefazolin <=4 ug/mLCefazolin with an IMELDA <=16 predicts susceptibility to the oral agentscefaclor, cefdinir, cefpodoxime, cefprozil, cefuroxime, cephalexin,and loracarbef when used for therapy of uncomplicated urinary tractinfections due to E. coli, Klebsiella pneumoniae, and Proteusmirabilis. PATIENT NOT FASTINGP ERFORMED BY: [employer] [id number] [facility] [id number] Information: SRC: Urinalysis, Office ([id number])Or dered By: Rosalind Looney on 01-24-2020 Bilirubin Ql (U) + Abnormal [facility] Work Phone: Glucose Test strip (U) [Mass/Vol] Negative Normal [facility] Work Phone: Glucose Test strip (U) [Mass/Vol] Negative Normal [facility]; [facility] Work Phone: Hemoglobin Ql (U) +++ Abnormal Compreh [facility] Work Phone: Ketones Ql (U) Negative Normal [facility] Work Phone: Ketones Ql (U) Negative Normal [facility]; [facility] Work Phone: Leukocyte esterase Test strip Ql (U) Moderate Normal [facility] Work Phone: Nitrite Ql (U) + Abnormal [facility] Work Phone: pH (U) 6.0 [pH] Normal [facility] Work Phone: Protein Ql (U) ++ Abnormal [facility] Work Phone: Specific gravity (U) [Rel density] 1.030 1 Abnormal [facility] Work Phone: Urobilinogen (24H U) [Mass/Time] Normal Normal [facility] Work Phone: OBSOLETEon 08-11-2019 OBSOLETE Refill (INTMWS) LATIA MOODY ([id number]) 1975 F Date Time Provider Department 08/11/19 MICHELLE RODRIGUEZ During your visit today, we recorded the following information about you: Lacy Kumari Ma 08/11/2019 9:23 AM Signed Last OV- 04/21/2019 Future OV- none Last refilled-04/21/2019 Pharmacy electronically requests the following refill(s) Pending Prescriptions Disp Refills OMEPRAZOLE 40 MG CAPSULE,DELAYED RELEASE 30 capsule 3 Sig: Take 1 capsule by mouth DAILY (6 AM). ANABELLE: No Lacy Rodriguez RN DRILLING MANAGER.HARRY 08/12/2019 3:12 PM Signed Refills sent.Michelle Rodriguez RN DRILLING MANAGER.SUPERVISOR QUALITY CONTROL Allergies As of Date: 08/11/2019 Noted Allergy Reaction CODEINE 10/16/2016 4 - Hives Date Reviewed: 04/21/2019 Reviewed by: Karen Coats LPN - Fully Assessed Reason for Visit: Refill Request [94] Visit Diagnosis:Chronic superficial gastritis without bleeding [K29.30] Order(s):Omeprazole 20 mg TbECTake 20 mg by mouth DAILY (6 AM).Disp: 90 tabletRfl: 3 Prescriptions as of 08/11/2019 Sig: OMEPRAZOLE 20 MG TABLET,DELAY* Take 20 mg by mouth DAILY (6 * OMEPRAZOLE 40 MG CAPSULE,NIKOLAS* Take 40 mg by mouth DAILY (6 * DULOXETINE 20 MG CAPSULE,NIKOLAS* Take 20 mg by mouth once pepe* GABAPENTIN 100 MG CAPSULE Take 100 mg by mouth three ti* ORENCIA SUBCUTANEOUS Inject subcutaneously one kaur* FOLIC ACID 1 MG TABLET Take 2 mg by mouth once daily. MELOXICAM 15 MG TABLET PREDNISONE 10 MG TABLET CYCLOBENZAPRINE 10 MG TABLET Take 10 mg by mouth twice any* CETIRIZINE 10 MG TABLET Take 10 mg by mouth once pepe* SYSTANE COMPLETE 0.6 % EYE DR* Use 1 Drop in both eyes three* SYSTANE NIGHTTIME 94 %-3 % EY* Use 1 application in both eye* Problem List As Of Date: 08/11/2019 (None) Prescriptions ordered this encounter Disp Refills Start End OMEPRAZOLE 20 MG TABLET,DELAYED RELE* 90 t* 3 08/12/2019 Route: ORAL Sig: Take 20 mg by mouth DAILY (6 AM). Medications Discontinued During This Encounter Omeprazole 20 mg TbEC 30 t* 3 04/21/2019 08/12/2019 Route: ORAL Sig: Take 20 mg by mouth DAILY (6 AM). Disc: Reason for discontinue is not on file. Encounter Status:Closed by MICHELLE RODRIGUEZ CNP on 08/12/19 [facility] CNOVanival 04-21-2019 CN Office Visit (GASTW ) LATIA MOODY ([id number]) 1975 F Date Time Provider Department 04/21/19 8:40 AM [facility] your visit today, we recorded the following information about you: Pulse Blood pressure Weight Height 83/minute 133/79 89.4 kg 1.588 m Michelle Rodriguez RN APRN.HARRY 04/21/2019 9:31 AM Signed Latia Moody a 43 year old female who is returning for follow up regarding dyspepsia, upper abdominal pain and bright red rectal bleeding. I saw the patient in consultation on 03/10/19. That note has been reviewed. The patient was seen by Dr. Rea for upper endoscopy and colonoscopy 03/21/19. The procedure report has been reviewed and findings as follows: EGD Impression: - Normal esophagus. ? - Normal stomach. Biopsied. ? - Normal examined duodenum. FINAL DIAGNOSIS Antrum, biopsy - Antral mucosa with minimal chronic inflammation. - No evidence of H. pylori. Colonoscopy Impression:- Preparation of the colon was fair. ?- The entire examined colon is normal. ? - Internal hemorrhoids. ? - No specimens collected. I have reviewed the procedure and pathology reports, as well as the images, with the patient. Screening colonoscopy in 5 years due to the poor prep. Presenting complaint: The patient presents today reporting that she must take omeprazole 40mg daily and sometimes needs to supplement with Gaviscon during the night. Takes omeprazole after dinner, along with her other medications. Dinner between 4-6. Takes all of her medication right after dinner. Heads to bed between 12-1. Using 2 pillows. We discussed moving the PPI to before dinner. Also trial of taking one in the morning. We discussed bile reflux and consider trial of colestipol or carafate if no improvement. Reports that she was aware of the colonoscopy - quite uncomfortable. Will need MAC for future colonoscopies. REVIEW OF SYSTEMS: GENERAL: No unplanned weight loss. GI: As discussed above. All other reviewed and negative other than HPI. PAST MEDICAL HISTORY Diagnosis Date - Environmental and seasonal allergies - Hives due to cold and heat exposure - PMH - PAST MEDICAL HISTORY OF acid reflux - Rheumatoid arthritis (HCC) 2008 PAST SURGICAL HISTORY Procedure Laterality Date - DELIVERY ONLY , low cervical - CHOLECYSTECTOMY about age 28, stones - PAST SURGICAL HISTORY OF patellar release right knee - PAST SURGICAL HISTORY OF bone out of hip fused to put into wrist FAMILY HISTORY Problem Relation Age of Onset - Cancer Maternal Grandfather - Diabetes Paternal Grandmother Current Outpatient Medications Medication Sig Dispense Refill - DULoxetine (CYMBALTA) 20 mg capsule Take 20 mg by mouth once daily. - gabapentin (NEURONTIN) 100 mg capsule Take 100 mg by mouth three times daily. - abatacept (ORENCIA SUBCUTANEOUS) Inject subcutaneously one time a week. - folic acid 1 mg tablet Take 2 mg by mouth once daily. 1 - meloxicam (MOBIC) 15 mg tablet - predniSONE (DELTASONE) 10 mg tablet - cyclobenzaprine (FLEXERIL) 10 mg tablet Take 10 mg by mouth twice daily as needed. 1 - cetirizine (ZYRTEC) 10 mg tablet Take 10 mg by mouth once daily. - SYSTANE COMPLETE 0.6 % drop Use 1 Drop in both eyes three times daily. - SYSTANE NIGHTTIME 94-3 % ophthalmic ointment Use 1 application in both eyes daily at bedtime. - omeprazole (PRILOSEC) 20 mg ORAL capsule Take 40 mg by mouth once daily. No current facility-administered medications for this visit. SOCIAL HISTORY: Unchanged PHYSICAL EXAMINATION: Blood pressure 133/79, pulse 83, height 158.8 cm (5' 2.5 ), weight 89.4 kg (197 lb). General Appearance: Well appearing, alert, in no acute distress, well-hydrated, well nourished. Skin: Skin color, texture, turgor normal. Eyes: Anicteric sclera. Heart: RRR without murmur. Abdomen: Abdomen soft, non-tender. Bowel sounds normal. Extremities: Air cast/boot on LLE. Impression: hyperawareness 2)chronic gastritis 3)internal hemorrhoids Plan: Increase omeprazole by adding a 20mg in the morning. Continue evening dose, but take before dinner. Consider Carafate or colestipol if no improvement. Also recommended propping head higher. She will keep me informed.I have personally interviewed and examined this patient. I have reviewed the information that the HEARING AID ASSISTANT entered for this encounter. I spent 25 minutes in the visit, with greater than 50% of the total ahaj-yq-ofpy time of the visit in counseling and coordination of care. Michelle Rodriguez RN DRILLING MANAGER.HARRY Rodriguez RN APRN.HARRY 04/21/2019 9:16 AM Addendum Increase omeprazole by adding a 20mg in the morning. Continue the 40mg in the evening. Give me an update in about a month, sooner, with any problems. If this isn't working we can think of taking care of the bile since your gallbladder is gone. Referring Provider: MICHELLE RODRIGUEZ [[id number]] Allergies As of Date: 04/21/2019 Noted Allergy Reaction CODEINE 10/16/2016 4 - Hives Date Reviewed: 04/21/2019 Reviewed by: Karen Coats LPN - Fully Assessed Reason for Visit: Recheck [92] Primary Visit Diagnosis:Chronic superficial gastritis without bleeding [K29.30] Other Visit Diagnosis:Hypersensitiv ity, initial encounter [T78.40XA] Order(s):Omeprazole 20 mg TbECTake 20 mg by mouth DAILY (6 AM).Disp: 30 tabletRfl: 3 Prescriptions as of 04/21/2019 Sig: OMEPRAZOLE 40 MG CAPSULE,NIKOLAS* Take 40 mg by mouth DAILY (6 * DULOXETINE 20 MG CAPSULE,NIKOLAS* Take 20 mg by mouth once pepe* GABAPENTIN 100 MG CAPSULE Take 100 mg by mouth three ti* ORENCIA SUBCUTANEOUS Inject subcutaneously one kaur* FOLIC ACID 1 MG TABLET Take 2 mg by mouth once daily. MELOXICAM 15 MG TABLET PREDNISONE 10 MG TABLET CYCLOBENZAPRINE 10 MG TABLET Take 10 mg by mouth twice any* CETIRIZINE 10 MG TABLET Take 10 mg by mouth once pepe* SYSTANE COMPLETE 0.6 % EYE DR* Use 1 Drop in both eyes three* SYSTANE NIGHTTIME 94 %-3 % EY* Use 1 application in both eye* OMEPRAZOLE 20 MG TABLET,DELAY* Take 20 mg by mouth DAILY (6 * Problem List As Of Date: 04/21/2019 (None) Other instructions from your clinician: Increase omeprazole by adding a 20mg in the morning. Continue the 40mg in the evening. Give me an update in about a month, sooner, with any problems. If this isn't working we can think of taking care of the bile since your gallbladder is gone. Prescriptions ordered this encounter Disp Refills Start End OMEPRAZOLE 20 MG TABLET,DELAYED RELE* 30 t* 3 04/21/2019 Route: ORAL Sig: Take 20 mg by mouth DAILY (6 AM). Medications Discontinued During This Encounter omeprazole (PRILOSEC) 20 mg ORAL cap* 04/21/2019 Class: Med Update Route: ORAL Sig: Take 40 mg by mouth once daily. Disc: Erroneous entry Encounter Status:Closed by MICHELLE RODRIGUEZ CNP on 04/21/19 Normal [facility] PROGRESSon 04-21-2019 PROGRESS HNO ID: [id number] Author: Michelle Rodriguez Service: ? Author Type: Nurse Practitioner Type: Progress Notes Filed: 04/21/2019 9:31 AM Note Text: Latia Moody a 43 year old female who is returning for follow up regarding dyspepsia, upper abdominal pain and bright red rectal bleeding. I saw the patient in consultation on 03/10/19. That note has been reviewed. The patient was seen by Dr. Rea for upper endoscopy and colonoscopy 03/21/19. The procedure report has been reviewed and findings as follows: EGD Impression: - Normal esophagus. ? - Normal stomach. Biopsied. ? - Normal examined duodenum. FINAL DIAGNOSIS Antrum, biopsy - Antral mucosa with minimal chronic inflammation. - No evidence of H. pylori. Colonoscopy Impression:- Preparation of the colon was fair. ?- The entire examined colon is normal. ? - Internal hemorrhoids. ? - No specimens collected. I have reviewed the procedure and pathology reports, as well as the images, with the patient. Screening colonoscopy in 5 years due to the poor prep. Presenting complaint: The patient presents today reporting that she must take omeprazole 40mg daily and sometimes needs to supplement with Gaviscon during the night. Takes omeprazole after dinner, along with her other medications. Dinner between 4-6. Takes all of her medication right after dinner. Heads to bed between 12-1. Using 2 pillows. We discussed moving the PPI to before dinner. Also trial of taking one in the morning. We discussed bile reflux and consider trial of colestipol or carafate if no improvement. Reports that she was aware of the colonoscopy - quite uncomfortable. Will need MAC for future colonoscopies. REVIEW OF SYSTEMS: GENERAL: No unplanned weight loss. GI: As discussed above. All other reviewed and negative other than HPI. PAST MEDICAL HISTORY Diagnosis Date - Environmental and seasonal allergies - Hives due to cold and heat exposure - PMH - PAST MEDICAL HISTORY OF acid reflux - Rheumatoid arthritis (HCC) 2008 PAST SURGICAL HISTORY Procedure Laterality Date - DELIVERY ONLY , low cervical - CHOLECYSTECTOMY about age 28, stones - PAST SURGICAL HISTORY OF patellar release right knee - PAST SURGICAL HISTORY OF bone out of hip fused to put into wrist FAMILY HISTORY Problem Relation Age of Onset - Cancer Maternal Grandfather - Diabetes Paternal Grandmother Current Outpatient Medications Medication Sig Dispense Refill - DULoxetine (CYMBALTA) 20 mg capsule Take 20 mg by mouth once daily. - gabapentin (NEURONTIN) 100 mg capsule Take 100 mg by mouth three times daily. - abatacept (ORENCIA SUBCUTANEOUS) Inject subcutaneously one time a week. - folic acid 1 mg tablet Take 2 mg by mouth once daily. 1 - meloxicam (MOBIC) 15 mg tablet - predniSONE (DELTASONE) 10 mg tablet - cyclobenzaprine (FLEXERIL) 10 mg tablet Take 10 mg by mouth twice daily as needed. 1 - cetirizine (ZYRTEC) 10 mg tablet Take 10 mg by mouth once daily. - SYSTANE COMPLETE 0.6 % drop Use 1 Drop in both eyes three times daily. - SYSTANE NIGHTTIME 94-3 % ophthalmic ointment Use 1 application in both eyes daily at bedtime. - omeprazole (PRILOSEC) 20 mg ORAL capsule Take 40 mg by mouth once daily. No current facility-administered medications for this visit. SOCIAL HISTORY: Unchanged PHYSICAL EXAMINATION: Blood pressure 133/79, pulse 83, height 158.8 cm (5' 2.5 ), weight 89.4 kg (197 lb). General Appearance: Well appearing, alert, in no acute distress, well-hydrated, well nourished. Skin: Skin color, texture, turgor normal. Eyes: Anicteric sclera. Heart: RRR without murmur. Abdomen: Abdomen soft, non-tender. Bowel sounds normal. Extremities: Air cast/boot on LLE. Impression: hyperawareness 2)chronic gastritis 3)internal hemorrhoids Plan: Increase omeprazole by adding a 20mg in the morning. Continue evening dose, but take before dinner. Consider Carafate or colestipol if no improvement. Also recommended propping head higher. She will keep me informed.I have personally interviewed and examined this patient. I have reviewed the information that the HEARING AID ASSISTANT entered for this encounter. I spent 25 minutes in the visit, with greater than 50% of the total lrqs-wc-rczx time of the visit in counseling and coordination of care. Michelle Rodriguez RN DRILLING MANAGER.SUPERVISOR QUALITY CONTROL Normal [facility] Rapid Strep Test, Office ([id number] [phone])Ordered By: Nona Stock on 03-23-2019 S. pyogenes Ag EIA Ql (Throat) Negative Normal [facility]; [facility] Work Phone: S. pyogenes Ag IA Ql (Unsp spec) Negative Normal [facility] Work Phone: THROAT CULTURE ([id number])Ordere d By: Shopfitter on 03-23-2019 Bacteria identified Respiratory culture Nom (Unsp spec) Final report Normal [facility] Work Phone: Comment on above: PATIENT NOT FASTINGP ERFORMED BY: JENNIFER Pureshieldcarolina [id number] [facility] [id number] Information: SRC: Bacteria identified Respiratory culture Nom (Unsp spec) RRF Normal [facility] Work Phone: Comment on above: Routine respiratory nicole PATIENT NOT FASTINGP ERFORMED BY: EJNNIFER MicroEdgeQamar [id number] Andres All Def [facility]Saint [facility] [id number] Information: SRC:SHABNAM CAVANAUGHon 03-21-2019 CNOV Office Visit (GASEWS ) LATIA MOODY ([id number]) 1975 F Date Time Provider Department 03/21/19 5:30 PM PROCE 1 ENDOSCOPY [facility] WSTRGASEWS During your visit today, we recorded the following information about you: 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 [employer]: Surgical/Procedural Record ID: [id number] 03/21/2019 12:00 AM Author: CHEPE PROVIDER Signed by [facility] PROVIDER on 03/22/2019 at 11:05 AM Document text: Display document [id number] only Referring Provider: MICHELLE RODRIGUEZ [[id number]] Allergies As of Date: 03/21/2019 Noted Allergy Reaction CODEINE 10/16/2016 4 - Hives Date Reviewed: 03/21/2019 Reviewed by: Emely (Rn) FREDDIE Padilla - Fully Assessed Primary Visit Diagnosis:OPENED IN ERROR Prescriptions as of 03/21/2019 Sig: DULOXETINE 20 MG CAPSULE,NIKOLAS* Take 20 mg by mouth once pepe* GABAPENTIN 100 MG CAPSULE Take 100 mg by mouth three ti* ORENCIA SUBCUTANEOUS Inject subcutaneously one kaur* FOLIC ACID 1 MG TABLET Take 2 mg by mouth once daily. MELOXICAM 15 MG TABLET PREDNISONE 10 MG TABLET CYCLOBENZAPRINE 10 MG TABLET Take 10 mg by mouth twice any* CETIRIZINE 10 MG TABLET Take 10 mg by mouth once pepe* SYSTANE COMPLETE 0.6 % EYE DR* Use 1 Drop in both eyes three* SYSTANE NIGHTTIME 94 %-3 % EY* Use 1 application in both eye* OMEPRAZOLE 20 MG CAPSULE,NIKOLAS* Take 40 mg by mouth once pepe* Problem List As Of Date: 03/21/2019 (None) Encounter Status:Closed by MARCE HERNANDES on 03/24/19 Normal [facility] HISTORY PHYSICALon 9 HISTORY PHYSICAL HNO ID: [id number] Author: Rigo Rea Service: Gastroenterology Author Type: Physician Type: HANDP Filed: 03/21/2019 4:02 PM Note Text: UPDATED HISTORY AND PHYSICAL EXAMINATION SERVICE DATE: 03/21/2019 SERVICE TIME: 4:02 PM PHYSICAL EXAM MUST BE COMPLETED ON ADMISSION The History and Physical (completed in the past 30 days) has been reviewed and the patient has been examined. The contents accurately reflect the patient's condition with the following additions or revisions since the HANDP was completed. Examination indicates no changes. This HANDP can be found in the Electronic Medical Record dated 03/10/19. SIGNATURE: Rigo Rea MD PATIENT NAME: Latia Moody DATE: March 21, 2019 TIME: 4:02 PM PAGER: [facility] NURSING PROGon 03-21-2019 NURSING PROG HNO ID: [id number] Author: Emely Padilla RN Service: ? Author Type: Registered Nurse Type: Nursing Progress Note Filed: 03/21/2019 5:40 PM Note Text: Patient did not experience a fall prior to discharge. Patient did not experience a burn prior to discharge. Emely Padilla RN [facility] NURSING PROG HNO ID: [id number] Author: Emely Padilla RN Service: ? Author Type: Registered Nurse Type: Nursing Progress Note Filed: 03/21/2019 5:03 PM Note Text: {Patient sitting up in bed tolerating snack and drink without problems. Emely Padilla RN [facility] NURSING PROG HNO ID: [id number] Author: Emely Padilla RN Service: ? Author Type: Registered Nurse Type: Nursing Progress Note Filed: 03/21/2019 4:44 PM Note Text: Patient arrived to PACU, on left side, abdomen soft. Patient resting. Encouraged to rest and pass flatus as needed. Emely Padilla RN [facility] NURSING PROG HNO ID: [id number] Author: Neena Pittman RN Service: ? Author Type: Registered Nurse Type: Nursing Progress Note Filed: 03/21/2019 4:34 PM Note Text: Patient did not experience a fall within the Intraoperative area. Patient did not experience a burn within the Intraoperative area. Neena Pittman RN [facility] NURSING PROG HNO ID: [id number] Author: Emely Padilla RN Service: ? Author Type: Registered Nurse Type: Nursing Progress Note Filed: 03/21/2019 4:02 PM Note Text: Patient did not experience a fall within the Preoperative area. Patient did not experience a burn within the Preoperative area. [facility] PRE-OP NURSING HAND OFF NOTE SBAR Hand off given to Neena Pittman RN. Hand off was communicated verbally and at the patient's bedside and all questions were answered. FREDDIE Navarro RN [facility] PT EDon 03-21-2019 PT ED HNO ID: [id number] Author: Emely Padilla RN Service: ? Author Type: Registered Nurse Type: Patient Education Filed: 03/21/2019 5:39 PM Note Text: POST OP LEARNING RESPONSE INSTRUCTION PROVIDED TO: Patient and friend/other METHOD OF INSTRUCTION: Individual instruction Written instruction - handouts Verbal instruction PATIENT / FAMILY RESPONSE: Verbalizes understanding of: INFECTION MANAGEMENT-Signs and symptoms of an infection and importance of contacting the physician MEDICAL REGIMEN-Importance of following prescribed medical regimen PAIN MANAGEMENT-Effective strategies to manage pain in addition to pain medication PHYSICAL RESTRICTIONS-Physical restrictions and recommendations after discharge from the hospital POST-PROCEDURE INSTRUCTIONS-Correct actions to take to reduce post procedure complications PATIENT SAFETY PRINCIPLES SYMPTOM MANAGEMENT-Correct actions to take to manage symptoms associated with his/her disease/illness WORSENING CONDITION-Signs and symptoms of a worsening condition that warrant a call to the physician FOLLOW-UP PLAN: Patient instructed to call with any further issues Follow up phone call. Contact information given. SUPPLEMENTAL MATERIAL: AVS REFERRAL (RECOMMENDATION): None Electronically Signed By: Emely Padilla RN In Department: AMBULATORY SURGERY [facility] PT ED HNO ID: [id number] Author: Emely Padilla RN Service: ? Author Type: Registered Nurse Type: Patient Education Filed: 03/21/2019 3:12 PM Note Text: PRE OP LEARNING ASSESSMENT PROCEDURE/SURGERY: GI PROCEDURES: Colonoscopy/ EGD READINESS TO LEARN COGNITIVE ABILITY: Alert and oriented MOTIVATION TO LEARN: Eager Interested FAMILY SUPPORT: High - Very involved in pt care PATIENT LEARNS BEST BY: Individual Instruction Written Instruction - Hand-outs Verbal Instruction Multiple Methods FACTORS AFFECTING LEARNING: None PHYSICAL LIMITATIONS AFFECTING LEARNING: None Electronically Signed By: Emely Padilla RN In Department: AMBULATORY SURGERY [facility] SURGICAL PATHOLOGYon 019 SURGICAL PATHOLOGY Specimen originated from [facility] Specimen #: [id number] Submitting Physician: RIGO REA MD FINAL DIAGNOSIS Antrum, biopsy - Antral mucosa with minimal chronic inflammation. - No evidence of H. pylori. TP/kr 03/22/2019 Miguel A Duffy M.D. (Electronic Signature) SPECIMEN SUBMITTED A: ANTRUM, BIOPSY CLINICAL DATA K30, R10.12, K62.5, R19.4 GROSS DESCRIPTION A. Received in formalin are two pieces of hansen, soft tissue aggregating to 0.8 x 0.2 x 0.2 cm. Totally submitted in one cassette. Gross examination performed at [facility], [address] [place] [address] 03/22/2019 2:05:31 AM Date of Report: 03/22/2019 Date of Procedure: 03/21/2019 Date of Receipt: 03/21/2019 Submitted by: RIGO REA MD Location: [facility] Diagnostic interpretation performed at [place] [address]. CLIA Number: [id number] Normal [facility] CNOVon 03-10-2019 CNOV Office Visit (GASTW ) LATIA MOODY ([id number]) 1975 F Date Time Provider Department 03/10/19 10:40 AM MICHELLE RODRIGUEZ [facility] During your visit today, we recorded the following information about you: Pulse Blood pressure Weight Height 85/minute 119/80 89.8 kg 1.575 m Last Period 02/03/19 Michelle Rodriguez RN APRN.SUPERVISOR QUALITY CONTROL 03/10/2019 4:34 PM Signed Latia Moody a 43 year old female who is self referred for the evaluation of rectal bleeding bleeding. The patient has not been seen previously. The patient denies a family history of colon cancer. The patient has a reported history of RA, and acid reflux. Presenting complaint: The patient presents today reporting that she has been dealing with reflux since she was 11. Taking omeprazole. She had an EGD many years ago. Reports that she starts with LUQ pain as soon as she eats in the morning. She will experience lower abdomen cramping and bloating as the day goes on. Usually has dinner at 6:00. She doesn't usually have a snack later. She heads to bed at midnight and sleeps on a regular bed with the head of the bed flat. The patient denies change in bowel habits or abdominal pain. She has been constipated since starting 1000 calorie diet. Having a bowel movement twice a week. She will take a laxative if she hasn't gone in a week. Reports that she had bright red blood with bowel movements for about 2 weeks, back in February (without using the laxative). REVIEW OF SYSTEMS: GENERAL: No weight loss, malaise or fevers RESPIRATORY: Negative for cough, hemoptysis, wheezing, COPD, dyspnea or shortness of breath CARDIOVASCULAR: Negative for chest pain, leg swelling, hypertension, CHF or palpitations GI: The patient states that her appetite has been adequate. She does get hungry. There has been no nausea, no vomiting. She denies dysphagia and denies odynophagia. There has been indigestion without heartburn. There has not been regurgitation. Bowel habits have been regular. There has not been diarrhea. There has been constipation. The patient admits to rectal bleeding as reported above. There has not been melena. Intermittent abdominal pain that is located in the left upper quadrant. : No history of dysuria, frequency or incontinence HIDE DROPPER: Negative for abnormal vaginal bleeding, abnormal vaginal discharge. LMP: 02/02/19. MUSCULOSKELETAL: Positive for joint pain or swelling related to RA. PSYCH: Negative for sleep disturbance, mood disorder and recent psychosocial stressors. HEMATOLOGY/LYMPHOLOGY Negative for prolonged bleeding, bruising easily or swollen nodes ENDOCRINE: No thyroid or diabetes NEURO: No history of headaches, syncope, paralysis, seizures or tremors All other reviewed and negative other than HPI. PAST MEDICAL HISTORY Diagnosis Date - Environmental and seasonal allergies - Hives due to cold and heat exposure - PMH - PAST MEDICAL HISTORY OF acid reflux - Rheumatoid arthritis (HCC) 2008 PAST SURGICAL HISTORY Procedure Laterality Date - DELIVERY ONLY , low cervical - PAST SURGICAL HISTORY OF patellar release right knee - PAST SURGICAL HISTORY OF bone out of hip fused to put into wrist - PAST SURGICAL HISTORY OF gall bladder removed FAMILY HISTORY Problem Relation Age of Onset - Cancer Maternal Grandfather - Diabetes Paternal Grandmother Current Outpatient Medications Medication Sig Dispense Refill - folic acid 1 mg tablet Take 2 mg by mouth once daily. 1 - meloxicam (MOBIC) 15 mg tablet - predniSONE (DELTASONE) 10 mg tablet - cyclobenzaprine (FLEXERIL) 10 mg tablet Take 10 mg by mouth twice daily as needed. 1 - cetirizine (ZYRTEC) 10 mg tablet Take 10 mg by mouth once daily. - SYSTANE COMPLETE 0.6 % drop Use 1 Drop in both eyes three times daily. - SYSTANE NIGHTTIME 94-3 % ophthalmic ointment Use 1 application in both eyes daily at bedtime. - omeprazole (PRILOSEC) 20 mg ORAL capsule Take 40 mg by mouth once daily. No current facility-administered medications for this visit. SOCIAL HISTORY: Patient is . She quit smoking at least 15 years ago. She reports her alcohol use as never. PHYSICAL EXAMINATION: Blood pressure 119/80, pulse 85, height 157.5 cm (5' 2 ), weight 89.8 kg (198 lb), last menstrual period 02/03/2019. General Appearance: Well appearing, alert, in no acute distress, well-hydrated, well nourished. Skin: Skin color, texture, turgor normal, no suspicious rashes or lesions. Head: Normocephalic, no masses, lesions or abnormalities. Eyes: Anicteric sclera. Oropharynx: Lips, mucosa, and tongue normal, teeth and gums normal, oropharynx normal. Neck: Supple, no adenopathy; thyroid symmetric, normal size. Lungs: lungs clear to auscultation. No wheezing, rhonchi, rales. Heart: RRR without murmur. Abdomen: Abdomen soft, non-tender. Bowel sounds normal. No masses, organomegaly. Extremities: No deformities, edema, skin discoloration, clubbing or cyanosis. Impression: GERD 2)long-term use of PPI 3)left sided abd pain 4)new onset constipation Plan: The patient will be scheduled for an upper endoscopy as well as a colonoscopy. Preparation for the procedures, using GoLytely as the laxative, have been explained in detail. The risks, benefits, anticipated outcomes and possible complications were mentioned, including including failure to complete the endoscopy and perforation. I explained the procedure in understandable terms and the patient was given printed material concerning the planned procedure. The patient had the opportunity to ask questions concerning the planned procedure. The patient freely consents to the planned procedure. The patient is encouraged to call with any questions or concerns, or should there be any change in health status between now and the scheduled procedure. I have personally interviewed and examined this patient. I have read the information that the MA documented in this encounter. I spent 30 minutes in the visit, with more than 50% of the total kmhz-mb-kbcl time of the visit in counseling / coordination of care. Michelle Rodriguez RN DRILLING MANAGER.HARRY Rodriguez RN APRN.HARRY 03/10/2019 3:58 PM Addendum Please follow the provided instructions for upper endoscopy and colonoscopy. You will be using GoLytely as the laxative during the preparation. You may start the laxative as early as 1:00 in the afternoon. Your procedures will be with Dr. Rea, on March 21. The endoscopy staff will call you the day before the procedure with specific on arrival time. (Thursday for Thursday procedures). Follow up with me on March 28. Referring Provider: SELF [[id number]] Allergies As of Date: 03/10/2019 Noted Allergy Reaction CODEINE 10/16/2016 4 - Hives Date Reviewed: 03/10/2019 Reviewed by: Lacy Kumari Ma - Fully Assessed Reason for Visit: Consult [502] Cmt: blood in stool Primary Visit Diagnosis:Functional dyspepsia [K30] Other Visit Diagnoses:LUQ pain [R10.12] Current use of proton pump inhibitor [Z79.899] Bright red rectal bleeding [K62.5] Left upper quadrant pain [R10.12] Blood in stool [K92.1] Order(s):EGD [8013226] Order #: [id number] FUTURE COLONOSCOPY - DIAGNOSTIC [[id number]] Order #: [id number] FUTURE peg 3350-Electrolytes (GOLYTELY) 236-22.74-6.74 -5.86 gram suspensionTake 4,000 mL by mouth one time only for 1 dose. Refer to printed prep instructions from your doctor.Disp: 1 BottleRfl: 0 INSERT IV ([place]) [[id number]] Order #: [id number]: 1 FUTURE IV DISCONTINUE [[id number]] Order #: [id number]: 1 FUTURE INSERT IV ([place]) [[id number]] Order #: [id number]: 1 Prescriptions as of 03/10/2019 Sig: DULOXETINE 20 MG CAPSULE,NIKOLAS* Take 20 mg by mouth once pepe* GABAPENTIN 100 MG CAPSULE Take 100 mg by mouth three ti* ORENCIA SUBCUTANEOUS Inject subcutaneously one kaur* PEG 3350-ELECTROLYTES 236 GRA* Take 4,000 mL by mouth one ti* FOLIC ACID 1 MG TABLET Take 2 mg by mouth once daily. MELOXICAM 15 MG TABLET PREDNISONE 10 MG TABLET CYCLOBENZAPRINE 10 MG TABLET Take 10 mg by mouth twice any* CETIRIZINE 10 MG TABLET Take 10 mg by mouth once pepe* SYSTANE COMPLETE 0.6 % EYE DR* Use 1 Drop in both eyes three* SYSTANE NIGHTTIME 94 %-3 % EY* Use 1 application in both eye* OMEPRAZOLE 20 MG CAPSULE,NIKOLAS* Take 40 mg by mouth once pepe* Problem List As Of Date: 03/10/2019 (None) Other instructions from your clinician: Please follow the provided instructions for upper endoscopy and colonoscopy. You will be using GoLytely as the laxative during the preparation. You may start the laxative as early as 1:00 in the afternoon. Your procedures will be with Dr. Rea, on March 21. The endoscopy staff will call you the day before the procedure with specific on arrival time. (Thursday for Thursday procedures). Follow up with me on March 28. Prescriptions ordered this encounter Disp Refills Start End PEG 3350-ELECTROLYTES 236 GRAM-22.74* 1 Isaac* 0 03/10/2019 03/10/2019 Route: ORAL Sig: Take 4,000 mL by mouth one time only for 1 dose. Refer to printed prep instructions from your doctor. Encounter Status:Closed by MICHELLE RODRIGUEZ CNP [facility]10[facility]) LATIA MOODY ([id number]) 1975 F Date Time Provider Department 03/10/19 MICHELLE RODRIGUEZ [facility] During your visit today, we recorded the following information about you: Lacy Kumari Ma 03/10/2019 3:35 PM Signed AMBULATORY PATIENT EDUCATION NOTE READINESS TO LEARN Cogntitive ability: Alert and oriented Motivation to learn: Interested Family support: Unable to assess - family not present Instruction provided to: Patient Patient learns best by: Individual instruction, written instruction (hand-outs), and verbal instruction. Factors affecting learning: None Physical limitations affecting learning: None LEARNING RESPONSE Diagnosis: Functional Dyspepsia Education topic/teaching points: Colonoscopy Upper Endoscopy METHOD OF INSTRUCTION:Teachback:I ndividual instruction, written instruction (hand-outs), and verbal instruction. Patient/family response: Verbalizes understanding of pre-procedure instructions. Follow-up plan: Complete - No need for follow-up Supplemental material: None Patient instructed to check insurance benefits and precertification.Patien t instructed to bring in advanced directives if applicable. Referral Entered: No Does patient have a Pacemaker or Defibrillator? No Electronically Signed By: Lacy Kumari Ma In department: Gastroenterology Allergies As of Date: 03/10/2019 Noted Allergy Reaction CODEINE 10/16/2016 4 - Hives Date Reviewed: 03/10/2019 Reviewed by: Lacy Kumari Ma - Fully Assessed Reason for Visit: Procedure [88] Cmt: Colon/EGD Primary Visit Diagnosis:Functional dyspepsia [K30] Other Visit Diagnoses:LUQ pain [R10.12] Current use of proton pump inhibitor [Z79.899] Bright red rectal bleeding [K62.5] Left upper quadrant pain [R10.12] Blood in stool [K92.1] Order(s):SURGICAL REQUEST - ELECTIVE [[id number]] Order #: [id number]: 1 Prescriptions as of 03/10/2019 Sig: DULOXETINE 20 MG CAPSULE,NIKOLAS* Take 20 mg by mouth once pepe* GABAPENTIN 100 MG CAPSULE Take 100 mg by mouth three ti* ORENCIA SUBCUTANEOUS Inject subcutaneously one kaur* PEG 3350-ELECTROLYTES 236 GRA* Take 4,000 mL by mouth one ti* FOLIC ACID 1 MG TABLET Take 2 mg by mouth once daily. MELOXICAM 15 MG TABLET PREDNISONE 10 MG TABLET CYCLOBENZAPRINE 10 MG TABLET Take 10 mg by mouth twice any* CETIRIZINE 10 MG TABLET Take 10 mg by mouth once pepe* SYSTANE COMPLETE 0.6 % EYE DR* Use 1 Drop in both eyes three* SYSTANE NIGHTTIME 94 %-3 % EY* Use 1 application in both eye* OMEPRAZOLE 20 MG CAPSULE,NIKOLAS* Take 40 mg by mouth once pepe* Problem List As Of Date: 03/10/2019 (None) Encounter Status:Closed by LACY KUMARI MA on 03/10/19 Normal [facility] HISTORY PHYSICALon HISTORY PHYSICAL HNO ID: [id number] Author: Michelle Rodriguez Service: ? Author Type: Nurse Practitioner Type: HANDP Filed: 03/10/2019 4:34 PM Note Text: Latia Moody a 43 year old female who is self referred for the evaluation of rectal bleeding bleeding. The patient has not been seen previously. The patient denies a family history of colon cancer. The patient has a reported history of RA, and acid reflux. Presenting complaint: The patient presents today reporting that she has been dealing with reflux since she was 11. Taking omeprazole. She had an EGD many years ago. Reports that she starts with LUQ pain as soon as she eats in the morning. She will experience lower abdomen cramping and bloating as the day goes on. Usually has dinner at 6:00. She doesn't usually have a snack later. She heads to bed at midnight and sleeps on a regular bed with the head of the bed flat. The patient denies change in bowel habits or abdominal pain. She has been constipated since starting 1000 calorie diet. Having a bowel movement twice a week. She will take a laxative if she hasn't gone in a week. Reports that she had bright red blood with bowel movements for about 2 weeks, back in February (without using the laxative). REVIEW OF SYSTEMS: GENERAL: No weight loss, malaise or fevers RESPIRATORY: Negative for cough, hemoptysis, wheezing, COPD, dyspnea or shortness of breath CARDIOVASCULAR: Negative for chest pain, leg swelling, hypertension, CHF or palpitations GI: The patient states that her appetite has been adequate. She does get hungry. There has been no nausea, no vomiting. She denies dysphagia and denies odynophagia. There has been indigestion without heartburn. There has not been regurgitation. Bowel habits have been regular. There has not been diarrhea. There has been constipation. The patient admits to rectal bleeding as reported above. There has not been melena. Intermittent abdominal pain that is located in the left upper quadrant. : No history of dysuria, frequency or incontinence HIDE DROPPER: Negative for abnormal vaginal bleeding, abnormal vaginal discharge. LMP: 02/02/19. MUSCULOSKELETAL: Positive for joint pain or swelling related to RA. PSYCH: Negative for sleep disturbance, mood disorder and recent psychosocial stressors. HEMATOLOGY/LYMPHOLOGY Negative for prolonged bleeding, bruising easily or swollen nodes ENDOCRINE: No thyroid or diabetes NEURO: No history of headaches, syncope, paralysis, seizures or tremors All other reviewed and negative other than HPI. PAST MEDICAL HISTORY Diagnosis Date - Environmental and seasonal allergies - Hives due to cold and heat exposure - PMH - PAST MEDICAL HISTORY OF acid reflux - Rheumatoid arthritis (HCC) 2008 PAST SURGICAL HISTORY Procedure Laterality Date - DELIVERY ONLY , low cervical - PAST SURGICAL HISTORY OF patellar release right knee - PAST SURGICAL HISTORY OF bone out of hip fused to put into wrist - PAST SURGICAL HISTORY OF gall bladder removed FAMILY HISTORY Problem Relation Age of Onset - Cancer Maternal Grandfather - Diabetes Paternal Grandmother Current Outpatient Medications Medication Sig Dispense Refill - folic acid 1 mg tablet Take 2 mg by mouth once daily. 1 - meloxicam (MOBIC) 15 mg tablet - predniSONE (DELTASONE) 10 mg tablet - cyclobenzaprine (FLEXERIL) 10 mg tablet Take 10 mg by mouth twice daily as needed. 1 - cetirizine (ZYRTEC) 10 mg tablet Take 10 mg by mouth once daily. - SYSTANE COMPLETE 0.6 % drop Use 1 Drop in both eyes three times daily. - SYSTANE NIGHTTIME 94-3 % ophthalmic ointment Use 1 application in both eyes daily at bedtime. - omeprazole (PRILOSEC) 20 mg ORAL capsule Take 40 mg by mouth once daily. No current facility-administered medications for this visit. SOCIAL HISTORY: Patient is . She quit smoking at least 15 years ago. She reports her alcohol use as never. PHYSICAL EXAMINATION: Blood pressure 119/80, pulse 85, height 157.5 cm (5' 2 ), weight 89.8 kg (198 lb), last menstrual period 02/03/2019. General Appearance: Well appearing, alert, in no acute distress, well-hydrated, well nourished. Skin: Skin color, texture, turgor normal, no suspicious rashes or lesions. Head: Normocephalic, no masses, lesions or abnormalities. Eyes: Anicteric sclera. Oropharynx: Lips, mucosa, and tongue normal, teeth and gums normal, oropharynx normal. Neck: Supple, no adenopathy; thyroid symmetric, normal size. Lungs: lungs clear to auscultation. No wheezing, rhonchi, rales. Heart: RRR without murmur. Abdomen: Abdomen soft, non-tender. Bowel sounds normal. No masses, organomegaly. Extremities: No deformities, edema, skin discoloration, clubbing or cyanosis. Impression: GERD 2)ocean transportation intermediary use of PPI 3)left sided abd pain 4)new onset constipation Plan: The patient will be scheduled for an upper endoscopy as well as a colonoscopy. Preparation for the procedures, using GoLytely as the laxative, have been explained in detail. The risks, benefits, anticipated outcomes and possible complications were mentioned, including including failure to complete the endoscopy and perforation. I explained the procedure in understandable terms and the patient was given printed material concerning the planned procedure. The patient had the opportunity to ask questions concerning the planned procedure. The patient freely consents to the planned procedure. The patient is encouraged to call with any questions or concerns, or should there be any change in health status between now and the scheduled procedure. I have personally interviewed and examined this patient. I have read the information that the MA documented in this encounter. I spent 30 minutes in the visit, with more than 50% of the total xzjk-lb-lzuo time of the visit in counseling / coordination of care. Michelle Rodriguez RN APRN.HARRY [facility] 03-10-2019 HOSP Patient:Latia Moody MRN: Height:5' 2 (1.575 m) Weight:197 lb 15.6 oz (89.8 kg) Outpatient Medications as of 03/21/19: DULoxetine (CYMBALTA) 20 mg capsule gabapentin (NEURONTIN) 100 mg capsule abatacept (ORENCIA SUBCUTANEOUS) folic acid 1 mg tablet meloxicam (MOBIC) 15 mg tablet predniSONE (DELTASONE) 10 mg tablet cyclobenzaprine (FLEXERIL) 10 mg tablet cetirizine (ZYRTEC) 10 mg tablet SYSTANE COMPLETE 0.6 % drop SYSTANE NIGHTTIME 94-3 % ophthalmic ointment omeprazole (PRILOSEC) 20 mg ORAL capsule Admission/Clinic Administered Medications as of 03/21/19: lactated ringers infusion Problem List: No problem list on file for this patient. Allergies: Codeine Date Verified: 03/21/19 Lab Values No results within the last 30 days for the following basenames: K,HCT Progress Notes ([facility]): Karen Coats LPN 03/10/2019 4:05 PM Signed Patient called and she is scheduled for colon on 04-15-19 and this does not work for her. Change date to 03-21-[address] Rea. . Karen Grande 03/10/2019 4:49 PM Signed Patient rescheduled to 03-21-2019 Sam Grande Progress Notes ([facility] Michelle Rodriguez RN APRN.HARRY 03/10/2019 3:50 PM Signed I left a message for the patient to call in with the following information: 1) What time does she usually have dinner 2)Does she snack afterward 3)what time does she head to bed 4)What type of mattress and is the head of the bed elevated. Michelle Rodriguez RN APRN.HARRY Coats LPN 03/10/2019 4:00 PM Signed Spoke with patient and answers to questions below. 1. 6 am 2. No 3. midnight 4. Memory foam and sleeps on 2 pills Karen Rodriguez RN DRILLING MANAGER.SUPERVISOR QUALITY CONTROL 03/10/2019 4:02 PM Signed Answers noted. Michelle Rodriguez RN DRILLING MANAGER.SUPERVISOR QUALITY CONTROL Normal [facility] Auto Diffon 01-11-2019 Basophils (Bld) [#/Vol] 0.1 E3/mcL Normal 0.0-0.2 [facility] Comment on above: Order Comment: Order Added by Discern Expert. Performed By: #### 1 [id number] #### MINA RemHemo [address] [place] [address] Basophils/100 WBC (Bld) 1.1 % Normal 0.0-2.0 [facility] Comment on above: Order Comment: Order Added by Discern Expert. Performed By: #### 1 [id number] #### MINA RemHemo [address] [place] [address] Eos Absolute 0.2 E3/mcL Normal 0.0-0.7 [facility] Comment on above: Order Comment: Order Added by Discern Expert. Performed By: #### 1 [id number] #### MINA RemHemo [address] [place] [address] Eosinophils/100 WBC (Bld) 3.2 % Normal 0.0-11.0 [facility] Comment on above: Order Comment: Order Added by Discern Expert. Performed By: #### 1 [id number] #### MINA RemHemo [address] [place] [address] Lymphocytes (Bld) [#/Vol] 2.1 E3/mcL Normal 1.2-3.4 [facility] Comment on above: Order Comment: Order Added by Discern Expert. Performed By: #### 1 [id number] #### MINA RemHemo [address] [place] [address] Lymphocytes/100 WBC (Bld) 30.0 % Normal 20.0-55.0 [facility] Comment on above: Order Comment: Order Added by Discern Expert. Performed By: #### 1 [id number] #### MINA RemHemo [address] [place] [address] [place] Absolute 0.5 E3/mcL Normal 0.0-0.7 [facility] Comment on above: Order Comment: Order Added by Discern Expert. Performed By: #### 1 [id number] #### MINA RasmussenHemo [address] [place] [address] Monocytes/100 WBC (Bld) 7.8 % Normal 0.0-10.0 [facility] Comment on above: Order Comment: Order Added by Discern Expert. Performed By: #### 1 [id number] #### MINA RasmussenHemo [address] [place] [address] Neutro Absolute 4.0 E3/mcL Normal 1.4-6.5 [facility] Comment on above: Order Comment: Order Added by Discern Expert. Performed By: #### 1 [id number] #### MINA RasmussenHemo [address] [place] [address] Neutro Auto 57.9 % Normal 37.0-75.0 [facility] Comment on above: Order Comment: Order Added by Discern Expert. Performed By: #### 1 [id number] #### MINA RasmussenHemo [address] [place] [address] CBC w/ Auto Diffon 9 Erythrocyte distribution width (RBC) [Ratio] 17.5 % High 11.5-14.5 [facility] Comment on above: Performed By: #### 1 [id number] #### MINA RasmussenHemo [address] [place] [address] Hematocrit (Bld) [Volume fraction] 38.0 % Normal 36.0-48.0 [facility] Comment on above: Performed By: #### 1 [id number] #### MINA RasmussenHemo [address] [place] [address] Hemoglobin (Bld) [Mass/Vol] 12.4 g/dL Normal 12.0-16.0 [facility] Comment on above: Performed By: #### 1 [id number] #### MINA RasmussenHemo [address] [place] [address] MCH (RBC) [Entitic mass] 28.0 pg Normal 27.0-31.0 [facility] Comment on above: Performed By: #### 1 [id number] #### MINA RasmussenHemo [address] [place] [address] MCHC (RBC) [Mass/Vol] 32.5 g/dL Low 33.0-37.0 [facility] Comment on above: Performed By: #### 1 [id number] #### MINA RasmussenHemo [facility] [place] [address] MCV (RBC) [Entitic vol] 86.0 fL Normal 78.0-100.0 [facility] Comment on above: Performed By: #### 1 [id number] #### MINA RasmussenHemo [facility] [place] [address] Platelet mean volume (Bld) [Entitic vol] 8.8 fL Normal 7.4-11.0 [facility] Comment on above: Performed By: #### 1 [id number] #### MINA RasmussenHemo [facility] [place] [address] Platelets (Bld) [#/Vol] 352 E3/mcL Normal 130-400 [facility] Comment on above: Performed By: #### 1 [id number] #### MINA RasmussenHemo [address] [place] [address] RBC (Bld) [#/Vol] 4.42 E6/mcL Normal 3.90-5.40 [facility] Comment on above: Performed By: #### 1 [id number] #### MINAEspinoza RasmussenHemo [address] [place] [address] WBC (Bld) [#/Vol] 6.9 E3/mcL Normal 3.6-11.0 [facility] Comment on above: Performed By: #### 1 [id number] #### MINA RasmussenHemo [address] [place] [address] CMPon 01-11-2019 Albumin [Mass/Vol] 4.3 g/dL Normal 3.4-5.0 [facility] Comment on above: Performed By: #### 1 [id number] #### MINAEspinoza RasmussenHemo [facility] [place] [address] Albumin/Globulin [Mass ratio] 1.7 {ratio} Normal 1.1-1.9 [facility] Comment on above: Performed By: #### 1 [id number] #### MINA RasmussenHemo [facility] [place] [address] Alk Phos 86 Int._Unit/L Normal 33-110 [facility] Comment on above: Performed By: #### 1 [id number] #### MINA RemHemo [address] [place] [address] ALT [Catalytic activity/Vol] 19 Int._Unit/L Normal 7-45 [facility] Comment on above: Performed By: #### 1 [id number] #### MINA RemHemo [address] [place] [address] Anion gap [Moles/Vol] 11 mmol/L Normal 10-20 [facility] Comment on above: Performed By: #### 1 [id number] #### MINA RemHemo [address] [place] [address] AST [Catalytic activity/Vol] 18 Int._Unit/L Normal 9-39 [facility] Comment on above: Performed By: #### 1 [id number] #### MINA RemHemo [address] [place] [address] Bili Total 0.37 mg/dL Normal 0.00-1.20 [facility] Comment on above: Performed By: #### 1 [id number] #### MINA RemHemo [address] [place] [address] Calcium [Mass/Vol] 9.0 mg/dL Normal 8.6-10.3 [facility] Comment on above: Performed By: #### 1 [id number] #### MINA RemHemo [address] [place] [address] Chloride [Moles/Vol] 107 mmol/L Normal 98-107 [facility] Comment on above: Performed By: #### 1 [id number] #### MINA RemHemo [address] [place] [address] CO2 [Moles/Vol] 26.0 mmol/L Normal 21.0-32.0 [facility] Comment on above: Performed By: #### 1 [id number] #### MINA RemHemo [address] [place] [address] Creatinine [Mass/Vol] 0.7 mg/dL Normal 0.5-1.1 [facility] Comment on above: Performed By: #### 1 [id number] #### MINA RemHemo [address] [place] [address] Globulin (S) [Mass/Vol] 3.0 g/dL Normal 2.0-4.0 [facility] Comment on above: Performed By: #### 1 [id number] #### MINA Adeno [address] [place] [address] Glucose [Mass/Vol] 129 mg/dL High 70-99 [facility] Comment on above: Performed By: #### 1 [id number] #### MINA Adeno [facility] [place] [address] Potassium [Moles/Vol] 3.5 mmol/L Normal 3.5-5.3 [facility] Comment on above: Performed By: #### 1 [id number] #### MINA Adeno [address] [place] [address] Protein [Mass/Vol] 6.8 g/dL Normal 6.4-8.2 [facility] Comment on above: Performed By: #### 1 [id number] #### MINA Adeno [address] [place] [address] Sodium [Moles/Vol] 140 mmol/L Normal 136-145 [facility] Comment on above: Performed By: #### 1 [id number] #### MINA Adeno [address] [place] [address] Urea nitrogen [Mass/Vol] 11 mg/dL Normal 6-23 [facility] Comment on above: Performed By: #### 1 [id number] #### MINA Adeno [address] [place] [address] Urea nitrogen/Creatinine [Mass ratio] 15.7 ratio Normal 5.4-30.0 [facility] Comment on above: Performed By: #### 1 [id number] #### MINA RasmussenHemo [facility] [place] [address] eGFRon 01-11-2019 GFR/1.73 sq M predicted among non-blacks MDRD (S/P/Bld) [Vol rate/Area] mL/min/{1.73_m2} Normal [facility] Comment on above: Order Comment: Order Added by Discern Expert. Performed By: #### 1 [id number] #### MINA RasmussenHemo [facility] [place] [address] Inhouse FLU A+B DIRECT AG, ( RAPID) ([id number])Ordered By: Sailaja Allan on 10-18-2018 FLUAV+FLUBV Ag Ql (Unsp spec) Negative Normal [facility] Work Phone: FLUAV+FLUBV Ag Ql (Unsp spec) Negative Normal [facility]; [facility] Work Phone: Rapid Strep Test, Office ([phone])Ordered By: Sailaja Allan on 10-18-2018 S. pyogenes Ag EIA Ql (Throat) Negative Normal [facility]; [facility] Work Phone: S. pyogenes Ag IA Ql (Unsp spec) Negative Normal [facility] Work Phone: THROAT CULTURE ([phone])Ordere d By: Shopfitter on 10-18-2018 Bacteria identified Respiratory culture Nom (Unsp spec) RRF Normal [facility] Work Phone: Comment on above: Routine respiratory nicole PATIENT NOT FASTINGP ERFORMED BY: [facility] [id number] [facility] [id number] Information: SRC:TH Bacteria identified Respiratory culture Nom (Unsp spec) Final report Normal [facility] Work Phone: Comment on above: PATIENT NOT FASTINGP ERFORMED BY: [facility] [id number] [facility] [id number] Information: SRC:TH Auto Diffon 10-04-2018 Basophils (Bld) [#/Vol] 0.1 E3/mcL Normal 0.0-0.2 [facility] Comment on above: Order Comment: Order Added by Discern Expert. Performed By: #### 1 [id number] #### MINA RasmussenHemo [facility] [place] [address] Basophils/100 WBC (Bld) 1.4 % Normal 0.0-2.0 [facility] Comment on above: Order Comment: Order Added by Discern Expert. Performed By: #### 1 [id number] #### MINA RasmussenHemo [address] [place] [address] Eos Absolute 0.2 E3/mcL Normal 0.0-0.7 [facility] Comment on above: Order Comment: Order Added by Discern Expert. Performed By: #### 1 [id number] #### MINA RemHemo [address] [place] [address] Eosinophils/100 WBC (Bld) 2.0 % Normal 0.0-11.0 [facility] Comment on above: Order Comment: Order Added by Discern Expert. Performed By: #### 1 [id number] #### MINA RemHemo [address] [place] [address] Lymphocytes (Bld) [#/Vol] 1.9 E3/mcL Normal 1.2-3.4 [facility] Comment on above: Order Comment: Order Added by Shante Expert. Performed By: #### 1 [id number] #### MINA RemHemo [address] [place] [address] Lymphocytes/100 WBC (Bld) 24.8 % Normal 20.0-55.0 [facility] Comment on above: Order Comment: Order Added by Shante Expert. Performed By: #### 1 [id number] #### MINA RemHemo [address] [place] [address] [place] Absolute 0.5 E3/mcL Normal 0.0-0.7 [facility] Comment on above: Order Comment: Order Added by Discern Expert. Performed By: #### 1 [id number] #### MINA RemHemo [address] [place] [address] Monocytes/100 WBC (Bld) 6.4 % Normal 0.0-10.0 [facility] Comment on above: Order Comment: Order Added by Discern Expert. Performed By: #### 1 [id number] #### MINA RemHemo [address] [place] [address] Neutro Absolute 5.0 E3/mcL Normal 1.4-6.5 [facility] Comment on above: Order Comment: Order Added by Discern Expert. Performed By: #### 1 [id number] #### MINA RemHemo [address] [place] [address] Neutro Auto 65.4 % Normal 37.0-75.0 [facility] Comment on above: Order Comment: Order Added by Discern Expert. Performed By: #### 1 [id number] #### MINA RasmussenHemo [facility] [place] [address] CBC w/ Auto Diffon 9 Erythrocyte distribution width (RBC) [Ratio] 17.7 % High 11.5-14.5 [facility] Comment on above: Performed By: #### 1 [id number] #### MINA RasmussenHemo [address] [place], [place] [address] Hematocrit (Bld) [Volume fraction] 39.2 % Normal 36.0-48.0 [facility] Comment on above: Performed By: #### 1 [id number] #### MINAEspinoza RasmussenHemo [address] [place], [place] [address] Hemoglobin (Bld) [Mass/Vol] 12.8 g/dL Normal 12.0-16.0 [facility] Comment on above: Performed By: #### 1 [id number] #### MINA RasmussenHemo [address] [place], [place] [address] MCH (RBC) [Entitic mass] 27.2 pg Normal 27.0-31.0 [facility] Comment on above: Performed By: #### 1 [id number] #### MINAEspinoza RasmussenHemo [address] [place], [place] [address] MCHC (RBC) [Mass/Vol] 32.7 g/dL Low 33.0-37.0 [facility] Comment on above: Performed By: #### 1 [id number] #### MINA RasmussenHemo [address] [place], [place] [address] MCV (RBC) [Entitic vol] 83.0 fL Normal 78.0-100.0 [facility] Comment on above: Performed By: #### 1 [id number] #### MINAEspinoza RasmussenHemo [address] [place] [address] Platelet mean volume (Bld) [Entitic vol] 8.8 fL Normal 7.4-11.0 [facility] Comment on above: Performed By: #### 1 [id number] #### MINAEspinoza RasmussenHemo [address] [place] [address] Platelets (Bld) [#/Vol] 338 E3/mcL Normal 130-400 [facility] Comment on above: Performed By: #### 1 [id number] #### MINA RasmussenHemo [address] [place] [address] RBC (Bld) [#/Vol] 4.72 E6/mcL Normal 3.90-5.40 [facility] Comment on above: Performed By: #### 1 [id number] #### MINA Adeno [facility] [place] [address] WBC (Bld) [#/Vol] 7.7 E3/mcL Normal 3.6-11.0 [facility] Comment on above: Performed By: #### 1 [id number] #### MINA RasmussenHemo [facility] [place] [address] CMPon 10-04-2018 Albumin [Mass/Vol] 4.2 g/dL Normal 3.4-5.0 [facility] Comment on above: Performed By: #### 1 [id number] #### MINA RasmussenHemo [address] [place] [address] Albumin/Globulin [Mass ratio] 1.5 {ratio} Normal 1.1-1.9 [facility] Comment on above: Performed By: #### 1 [id number] #### MINA RasmussenHemo [address] [place] [address] Alk Phos 77 Int._Unit/L Normal 33-110 [facility] Comment on above: Performed By: #### 1 [id number] #### MINA RasmussenHemo [address] [place] [address] ALT [Catalytic activity/Vol] 21 Int._Unit/L Normal 7-45 [facility] Comment on above: Performed By: #### 1 [id number] #### MINA RasmussenHemo [address] [place] [address] Anion gap [Moles/Vol] 12 mmol/L Normal 10-20 [facility] Comment on above: Performed By: #### 1 [id number] #### MINAEspinoza RasmussenHemo [address] [place] [address] AST [Catalytic activity/Vol] 21 Int._Unit/L Normal 9-39 [facility] Comment on above: Result Comment: MILD HEMOLYSIS DETECTED. The result may be falsely elevated due to hemolysis or other interferents. Clinical correlation is recommended. Repeat testing may be considered. Performed By: #### 1 [id number] #### MINA RasmussenHemo [address] [place] [address] Bili Total 0.37 mg/dL Normal 0.00-1.20 [facility] Comment on above: Performed By: #### 1 [id number] #### MINA RasmussenHemo [address] [place] [address] Calcium [Mass/Vol] 9.3 mg/dL Normal 8.6-10.3 [facility] Comment on above: Performed By: #### 1 [id number] #### MINA RasmussenHemo [address] [place] [address] Chloride [Moles/Vol] 107 mmol/L Normal 98-107 [facility] Comment on above: Performed By: #### 1 [id number] #### MINA RasmussenHemo [address] [place] [address] CO2 [Moles/Vol] 25.0 mmol/L Normal 21.0-32.0 [facility] Comment on above: Performed By: #### 1 [id number] #### MINA RasmussenHemo [address] [place] [address] Creatinine [Mass/Vol] 0.6 mg/dL Normal 0.5-1.1 [facility] Comment on above: Performed By: #### 1 [id number] #### MINA RasmussenHemo [address] [place] [address] Globulin (S) [Mass/Vol] 3.0 g/dL Normal 2.0-4.0 [facility] Comment on above: Performed By: #### 1 [id number] #### MINA RemHemo [address] [place] [address] Glucose [Mass/Vol] 93 mg/dL Normal 70-99 [facility] Comment on above: Performed By: #### 1 [id number] #### MINA RasmussenHemo [address] [place] [address] Potassium [Moles/Vol] 4.4 mmol/L Normal 3.5-5.3 [facility] Comment on above: Result Comment: MILD HEMOLYSIS DETECTED. The result may be falsely elevated due to hemolysis or other interferents. Clinical correlation is recommended. Repeat testing may be considered. Performed By: #### 1 [id number] #### MINA Adeno [address] [place], [place] [address] Protein [Mass/Vol] 7.0 g/dL Normal 6.4-8.2 [facility] Comment on above: Performed By: #### 1 6072531 #### MINA Adeno [address] [place] [address] Sodium [Moles/Vol] 140 mmol/L Normal 136-145 [facility] Comment on above: Performed By: #### 1 [id number] #### MINA Adeno [address] [place] [address] Urea nitrogen [Mass/Vol] 15 mg/dL Normal 6-23 [facility] Comment on above: Performed By: #### 1 [id number] #### MINA Adeno [address] [place], [place] [address] Urea nitrogen/Creatinine [Mass ratio] 25.0 ratio Normal 5.4-30.0 [facility] Comment on above: Performed By: #### 1 [id number] #### MINA Adeno [address] [place], [place] [address] Morphon 10-04-2018 Hypochromasia 1+ Normal [facility] Comment on above: Order Comment: Order Added by Discern Expert. Performed By: #### 1 [id number] #### MINA Keikoo [address] [place], [place] [address] RBC morphology finding Nom (Bld) SEE MORPHOLOGY Normal [facility] Comment on above: Order Comment: Order Added by Discern Expert. Performed By: #### 1 [id number] #### MINA RasmussenHemo [facility] [place] [address] eGFRon 10-04-2018 GFR/1.73 sq M predicted among non-blacks MDRD (S/P/Bld) [Vol rate/Area] mL/min/{1.73_m2} Normal [facility] Comment on above: Order Comment: Order Added by Discern Expert. Performed By: #### 1 [id number] #### MINA Adenconcepcion [address] [place] [address] zzplt morphon 10-04-2018 Platelet morphology finding Nom (Bld) NORMAL Normal [facility] Comment on above: Performed By: #### 1 [id number] #### MINA RasmussenHemo [address] [place] [address] Platelets (Bld) [#/Vol] NORMAL Normal [facility] Comment on above: Performed By: #### 1 [id number] #### MINA RasmussenHemo [address] [place] [address] Auto Diffon 07-16-2018 Basophils (Bld) [#/Vol] 0.1 E3/mcL Normal 0.0-0.2 [facility] Comment on above: Order Comment: Order Added by Discern Expert. Performed By: #### 2 137286 #### MINA RasmussenHemo [address] [place] [address] Basophils/100 WBC (Bld) 1.5 % Normal 0.0-2.0 [facility] Comment on above: Order Comment: Order Added by Discern Expert. Performed By: #### 2 898658 #### MINA RasmussenHemo [address] [place] [address] Eos Absolute 0.2 E3/mcL Normal 0.0-0.7 [facility] Comment on above: Order Comment: Order Added by Discern Expert. Performed By: #### 2 995402 #### MINA RasmussenHemo [address] [place] [address] Eosinophils/100 WBC (Bld) 2.7 % Normal 0.0-11.0 [facility] Comment on above: Order Comment: Order Added by Discern Expert. Performed By: #### 2 120180 #### MINA RemHemo [address] [place] [address] Lymphocytes (Bld) [#/Vol] 2.3 E3/mcL Normal 1.2-3.4 [facility] Comment on above: Order Comment: Order Added by Discern Expert. Performed By: #### 2 819201 #### MINA RemHemo [address] [place] [address] Lymphocytes/100 WBC (Bld) 29.2 % Normal 20.0-55.0 [facility] Comment on above: Order Comment: Order Added by Discern Expert. Performed By: #### 2 574634 #### MINA RasmussenHemo [address] [place] [address] [place] Absolute 0.7 E3/mcL Normal 0.0-0.7 [facility] Comment on above: Order Comment: Order Added by Discern Expert. Performed By: #### 2 979927 #### MINA RasmussenHemo [address] [place], [place] [address] Monocytes/100 WBC (Bld) 8.8 % Normal 0.0-10.0 [facility] Comment on above: Order Comment: Order Added by Discern Expert. Performed By: #### 2 089992 #### MINA RasmussenHemo [address] [place], [place] [address] Neutro Absolute 4.6 E3/mcL Normal 1.4-6.5 [facility] Comment on above: Order Comment: Order Added by Discern Expert. Performed By: #### 2 328486 #### MINA RasmussenHemo [address] [place], [place] [address] Neutro Auto 57.8 % Normal 37.0-75.0 [facility] Comment on above: Order Comment: Order Added by Discern Expert. Performed By: #### 2 358592 #### MINA RasmussenHemo [facility] [place] [address] CBC w/ Auto Diffon 9 Erythrocyte distribution width (RBC) [Ratio] 17.4 % High 11.5-14.5 [facility] Comment on above: Performed By: #### 2 706006 #### MINA RemHemo [address] [place] [address] Hematocrit (Bld) [Volume fraction] 40.4 % Normal 36.0-48.0 [facility] Comment on above: Performed By: #### 2 736928 #### MINA ValeryHemo [facility] [place] [address] Hemoglobin (Bld) [Mass/Vol] 12.9 g/dL Normal 12.0-16.0 [facility] Comment on above: Performed By: #### 2 896194 #### MINA RemHemo [address] [place] [address] MCH (RBC) [Entitic mass] 26.1 pg Low 27.0-31.0 [facility] Comment on above: Performed By: #### 2 627010 #### MINA RemHemo [address] [place] [address] MCHC (RBC) [Mass/Vol] 31.9 g/dL Low 33.0-37.0 [facility] Comment on above: Performed By: #### 2 692959 #### MINA RemHemo [address] [place] [address] MCV (RBC) [Entitic vol] 81.7 fL Normal 78.0-100.0 [facility] Comment on above: Performed By: #### 2 039802 #### MINA RemHemo [address] [place] [address] Platelet mean volume (Bld) [Entitic vol] 8.5 fL Normal 7.4-11.0 [facility] Comment on above: Performed By: #### 2 362218 #### MINA RemHemo [address] [place] [address] Platelets (Bld) [#/Vol] 419 E3/mcL High 130-400 [facility] Comment on above: Performed By: #### 2 654259 #### MINA RemHemo [address] [place] [address] RBC (Bld) [#/Vol] 4.94 E6/mcL Normal 3.90-5.40 [facility] Comment on above: Performed By: #### 2 676633 #### MINA RemHemo [address] [place] [address] WBC (Bld) [#/Vol] 8.0 E3/mcL Normal 3.6-11.0 [facility] Comment on above: Performed By: #### 2 908591 #### MINA RemHemo [address] [place] [address] CMPon 07-16-2018 Albumin [Mass/Vol] 4.5 g/dL Normal 3.4-5.0 [facility] Comment on above: Performed By: #### 2 540815 #### MINA RasmussenAsk The Doctor [facility] [place] [address] Albumin/Globulin [Mass ratio] 1.5 {ratio} Normal 1.1-1.9 [facility] Comment on above: Performed By: #### 2 756455 #### MINA RasmussenChem [address] [place] [address] Alk Phos 99 Int._Unit/L Normal 33-110 [facility] Comment on above: Performed By: #### 2 577607 #### MINA Scott [facility] [place] [address] ALT [Catalytic activity/Vol] 23 Int._Unit/L Normal 7-45 [facility] Comment on above: Performed By: #### 2 896851 #### MINA Rasmussen[address] [address] Anion gap [Moles/Vol] 13 mmol/L Normal 10-20 [facility] Comment on above: Performed By: #### 2 148801 #### MINAEspinoza Rasmussen[address] [address] AST [Catalytic activity/Vol] 21 Int._Unit/L Normal 9-39 [facility] Comment on above: Performed By: #### 2 960728 #### MINAEspinoza Rasmussen[address] [address] Bili Total 0.42 mg/dL Normal 0.00-1.20 [facility] Comment on above: Performed By: #### 2 086871 #### [place] [address] [place] [address] Calcium [Mass/Vol] 9.2 mg/dL Normal 8.6-10.3 [facility] Comment on above: Performed By: #### 2 098780 #### MINAEspinoza RasmussenAsk The Doctor [facility] [place] [address] Chloride [Moles/Vol] 105 mmol/L Normal 98-107 [facility] Comment on above: Performed By: #### 2 717754 #### MINAEspinoza RasmussenAsk The Doctor [address] [place] [address] CO2 [Moles/Vol] 25.0 mmol/L Normal 21.0-32.0 [facility] Comment on above: Performed By: #### 2 227932 #### MINA RemChem [address] [place] [address] Creatinine [Mass/Vol] 0.7 mg/dL Normal 0.5-1.1 [facility] Comment on above: Performed By: #### 2 811711 #### MINA Rem[facility] [address] [place] [address] Globulin (S) [Mass/Vol] 3.0 g/dL Normal 2.0-4.0 [facility] Comment on above: Performed By: #### 2 107703 #### MINA [facility] [address] [place] [address] Glucose [Mass/Vol] 83 mg/dL Normal 70-99 [facility] Comment on above: Performed By: #### 2 414282 #### MINA [facility] [address] [place] [address] Potassium [Moles/Vol] 3.4 mmol/L Low 3.5-5.3 [facility] Comment on above: Performed By: #### 2 762986 #### MINA [facility] [address] [place] [address] Protein [Mass/Vol] 7.5 g/dL Normal 6.4-8.2 [facility] Comment on above: Performed By: #### 2 043701 #### MINA [facility] [address] [place] [address] Sodium [Moles/Vol] 140 mmol/L Normal 136-145 [facility] Comment on above: Performed By: #### 2 619879 #### MINA Rem[facility] [address] [place] [address] Urea nitrogen [Mass/Vol] 12 mg/dL Normal 6-23 [facility] Comment on above: Performed By: #### 2 351444 #### MINA Rem[facility] [address] [place] [address] Urea nitrogen/Creatinine [Mass ratio] 17.1 ratio Normal 5.4-30.0 [facility] Comment on above: Performed By: #### 2 695186 #### MINA [facility] [address] [place] [address] eGFRon 07-16-2018 GFR/1.73 sq M predicted among non-blacks MDRD (S/P/Bld) [Vol rate/Area] mL/min/{1.73_m2} Normal [facility] Comment on above: Order Comment: Order added by Discern Expert. Performed By: #### 1 [id number] #### MINA [facility] [address] [place] [address] Rapid Strep Test, Office ([phone])Ordered By: Sindi Slater on 05-05-2018 S. pyogenes Ag EIA Ql (Throat) Negative Normal [facility]; [facility] Work Phone: S. pyogenes Ag IA Ql (Unsp spec) Negative Normal [facility] Work Phone: THROAT CULTURE ([phone])Ordere d By: Shopfitter on 05-05-2018 Bacteria identified Respiratory culture Nom (Unsp spec) RRF Normal [facility] Work Phone: Comment on above: Routine respiratory nicole PATIENT NOT FASTINGP ERFORMED BY: JENNIFER [facility] [id number] [facility] [id number] Information: SRC:TH Bacteria identified Respiratory culture Nom (Unsp spec) Final report Normal [facility] Work Phone: Comment on above: PATIENT NOT FASTINGP ERFORMED BY: JENNIFER [facility] [id number] [facility] [id number] Information: SRC:TH Auto Diffon 04-15-2018 Basophils (Bld) [#/Vol] 0.1 E3/mcL Normal 0.0-0.2 [facility] Comment on above: Order Comment: Order Added by Discern Expert. Performed By: #### 2 [id number] #### MINA RemHemo [address] [place] [address] Basophils/100 WBC (Bld) 0.9 % Normal 0.0-2.0 [facility] Comment on above: Order Comment: Order Added by Discern Expert. Performed By: #### 2 210242 #### MINA RemHemo [address] [place] [address] Eos Absolute 0.2 E3/mcL Normal 0.0-0.7 [facility] Comment on above: Order Comment: Order Added by Discern Expert. Performed By: #### 2 000316 #### MINA RemHemo [address] [place] [address] Eosinophils/100 WBC (Bld) 2.6 % Normal 0.0-11.0 [facility] Comment on above: Order Comment: Order Added by Discern Expert. Performed By: #### 2 310735 #### MINA RemHemo [address] [place] [address] Lymphocytes (Bld) [#/Vol] 2.2 E3/mcL Normal 1.2-3.4 [facility] Comment on above: Order Comment: Order Added by Discern Expert. Performed By: #### 2 427699 #### MINA RemHemo [address] [place] [address] Lymphocytes/100 WBC (Bld) 26.0 % Normal 20.0-55.0 [facility] Comment on above: Order Comment: Order Added by Discern Expert. Performed By: #### 2 492145 #### MINA RemHemo [address] [place] [address] [place] Absolute 0.7 E3/mcL Normal 0.0-0.7 [facility] Comment on above: Order Comment: Order Added by Discern Expert. Performed By: #### 2 926605 #### MINA RemHemo [address] [place] [address] Monocytes/100 WBC (Bld) 8.5 % Normal 0.0-10.0 [facility] Comment on above: Order Comment: Order Added by Discern Expert. Performed By: #### 2 021626 #### MINA RemHemo [address] [place] [address] Neutro Absolute 5.3 E3/mcL Normal 1.4-6.5 [facility] Comment on above: Order Comment: Order Added by Discern Expert. Performed By: #### 2 905214 #### MINA RemHemo [address] [place] [address] Neutro Auto 62.0 % Normal 37.0-75.0 [facility] Comment on above: Order Comment: Order Added by Discern Expert. Performed By: #### 2 955791 #### MINA RasmussenHemo [address] [place] [address] CBC w/ Auto Diffon Erythrocyte distribution width (RBC) [Ratio] 19.0 % High 11.5-14.5 [facility] Comment on above: Performed By: #### 2 885617 #### MINA RasmussenHemo [address] [place] [address] Hematocrit (Bld) [Volume fraction] 37.7 % Normal 36.0-48.0 [facility] Comment on above: Performed By: #### 2 415034 #### MINA RasmussenHemo [address] [place] [address] Hemoglobin (Bld) [Mass/Vol] 11.9 g/dL Low 12.0-16.0 [facility] Comment on above: Performed By: #### 2 767397 #### MINA RasmussenHemo [address] [place] [address] MCH (RBC) [Entitic mass] 25.5 pg Low 27.0-31.0 [facility] Comment on above: Performed By: #### 2 935831 #### MINA RemHemo [address] [place] [address] MCHC (RBC) [Mass/Vol] 31.7 g/dL Low 33.0-37.0 [facility] Comment on above: Performed By: #### 2 838233 #### MINA RasmussenHemo [address] [place] [address] MCV (RBC) [Entitic vol] 80.6 fL Normal 78.0-100.0 [facility] Comment on above: Performed By: #### 2 628707 #### MINA RemHemo [address] [place] [address] Platelet mean volume (Bld) [Entitic vol] 8.6 fL Normal 7.4-11.0 [facility] Comment on above: Performed By: #### 2 560138 #### MINA RemHemo [address] [place] [address] Platelets (Bld) [#/Vol] 371 E3/mcL Normal 130-400 [facility] Comment on above: Performed By: #### 2 021267 #### MINA RasmussenHemo [address] [place] [address] RBC (Bld) [#/Vol] 4.68 E6/mcL Normal 3.90-5.40 [facility] Comment on above: Performed By: #### 2 942465 #### MINA RasmussenHemo [address] [place] [address] WBC (Bld) [#/Vol] 8.6 E3/mcL Normal 3.6-11.0 [facility] Comment on above: Performed By: #### 2 026427 #### MINA RasmussenHemo [address] [place] [address] CMPon 04-15-2018 Albumin [Mass/Vol] 4.2 g/dL Normal 3.4-5.0 [facility] Comment on above: Performed By: #### 2 983818 #### MINA [facility] [address] [place] [address] Albumin/Globulin [Mass ratio] 1.6 {ratio} Normal 1.1-1.9 [facility] Comment on above: Performed By: #### 2 807611 #### MINA [facility] [address] [place] [address] Alk Phos 89 Int._Unit/L Normal 33-110 [facility] Comment on above: Performed By: #### 2 744280 #### MINA [facility] [address] [place] [address] ALT [Catalytic activity/Vol] 19 Int._Unit/L Normal 7-45 [facility] Comment on above: Performed By: #### 2 989746 #### MINA [facility] [address] [place] [address] Anion gap [Moles/Vol] 12 mmol/L Normal 10-20 [facility] Comment on above: Performed By: #### 2 779316 #### MINA [facility] [address] [place] [address] AST [Catalytic activity/Vol] 20 Int._Unit/L Normal 9-39 [facility] Comment on above: Performed By: #### 2 840077 #### MINA [facility] [address] [place] [address] Bili Total 0.38 mg/dL Normal 0.00-1.20 [facility] Comment on above: Performed By: #### 2 771650 #### MINA [facility] [address] [place] [address] Calcium [Mass/Vol] 9.0 mg/dL Normal 8.6-10.3 [facility] Comment on above: Performed By: #### 2 701416 #### MINA [facility] [address] [place] [address] Chloride [Moles/Vol] 106 mmol/L Normal 98-107 [facility] Comment on above: Performed By: #### 2 934507 #### MINA [facility] [address] [place] [address] CO2 [Moles/Vol] 24.0 mmol/L Normal 21.0-32.0 [facility] Comment on above: Performed By: #### 2 421602 #### MINA [facility] [address] [place] [address] Creatinine [Mass/Vol] 0.6 mg/dL Normal 0.5-1.1 [facility] Comment on above: Performed By: #### 2 403412 #### MINA [facility] [address] [place] [address] Globulin (S) [Mass/Vol] 3.0 g/dL Normal 2.0-4.0 [facility] Comment on above: Performed By: #### 2 522349 #### MINA [facility] [address] [place] [address] Glucose [Mass/Vol] 86 mg/dL Normal 70-99 [facility] Comment on above: Performed By: #### 2 627728 #### MINA [facility] [address] [place] [address] Potassium [Moles/Vol] 3.4 mmol/L Low 3.5-5.3 [facility] Comment on above: Performed By: #### 2 127865 #### MINA [facility] [address] [place] [address] Protein [Mass/Vol] 6.8 g/dL Normal 6.4-8.2 [facility] Comment on above: Performed By: #### 2 384343 #### MINA [facility] [address] [place] [address] Sodium [Moles/Vol] 139 mmol/L Normal 136-145 [facility] Comment on above: Performed By: #### 2 173846 #### MINA [facility] [address] [place] [address] Urea nitrogen [Mass/Vol] 10 mg/dL Normal 6-23 [facility] Comment on above: Performed By: #### 2 189346 #### MINA Rem[facility] [place] [id number] Urea nitrogen/Creatinine [Mass ratio] 16.7 ratio Normal 5.4-30.0 [facility] Comment on above: Performed By: #### 2 385242 #### MINA [facility] [address] [place], [place] [address] Morphon 04-15-2018 Anisocytosis Ql (Bld) 1+ Normal [facility] Comment on above: Order Comment: Order Added by Discern Expert. Performed By: #### 1 [id number] #### MINA RemHemo [facility] [place] [id number] RBC morphology finding Nom (Bld) SEE MORPHOLOGY Normal [facility] Comment on above: Order Comment: Order Added by Discern Expert. Performed By: #### 1 [id number] #### MINA RasmussenHemo [facility] [place] [id number] eGFRon 04-15-2018 GFR/1.73 sq M predicted among non-blacks MDRD (S/P/Bld) [Vol rate/Area] mL/min/{1.73_m2} Normal [facility] Comment on above: Order Comment: Order added by Discern Expert. Performed By: #### 1 [id number] #### MINA RemChem [facility] [place] [address] zzplt morphon 04-15-2018 Platelet morphology finding Nom (Bld) NORMAL Normal [facility] Comment on above: Performed By: #### 9 [id number] #### MINA RemHemo [address] [place] [address] Platelets (Bld) [#/Vol] NORMAL Normal [facility] Comment on above: Performed By: #### 9 [id number] #### MINA ValeryEliasconcepcion [facility] [place] [id number] Culture, Noseon 12-30-2017 CUN See Note Normal [facility] Work Phone: Comment on above: Gram StainGram Stain 1+ Epithelial cells No White Blood Cells No organisms seen Nasoph. CultClinical correlation necessary, Possible skin contamination. ORGANISM 1: Staphylococcus hominis hominisAmount Growth Rare Staphylococcus hominis hominis: REACTION Benzylpenicillin NF 0.25 R Cefoxitin *NF + Clindamycin $$ <=0.25 R Inducable Clindamycin [place] + Erythromycin $ >=8 R Gentamicin $ <=0.5 S Levofloxacin $ <=0.12 S Oxacillin NF <=0.25 R Tigecycline $$$$ <=0.12 S Rifampin $$ <=0.5 S Tetracycline NF >=16 R Vancomycin $ <=0.5 S(NF) indicates non-formulary drug at [facility]. Approval by Infectious Disease Specialist required before non-formulary drugs may be ordered and/or dispensed. * CLSI guidelines does not recommend testing of cephalosporins. This interpretation is deduced from Beta-lactam/penicillin results. Culture, Nose See Note Normal [facility] Work Phone: Comment on above: Gram StainGram Stain 1+ Epithelial cells No White Blood Cells No organisms seen Nasoph. CultClinical correlation necessary, Possible skin contamination. ORGANISM 1: Staphylococcus hominis hominisAmount Growth Rare Staphylococcus hominis hominis: REACTION Benzylpenicillin NF 0.25 R Cefoxitin *NF + Clindamycin $$ <=0.25 R Inducable Clindamycin [place] + Erythromycin $ >=8 R Gentamicin $ <=0.5 S Levofloxacin $ <=0.12 S Oxacillin NF <=0.25 R Tigecycline $$$$ <=0.12 S Rifampin $$ <=0.5 S Tetracycline NF >=16 R Vancomycin $ <=0.5 S(NF) indicates non-formulary drug at [facility]. Approval by Infectious Disease Specialist required before non-formulary drugs may be ordered and/or dispensed. * CLSI guidelines does not recommend testing of cephalosporins. This interpretation is deduced from Beta-lactam/penicillin results. BRICE CULTURE-OTHER ([id number])on 03-30-2017 Bacteria identified Respiratory culture Nom (Unsp spec) RRF Normal [facility] Work Phone: Comment on above: Routine respiratory nicole PATIENT NOT FASTINGP ERFORMED BY: hopscout [facility] [id number] Andres LocappySt. Luke[facility] Hospital [id number] Information: THROAT SRC:TH Bacteria identified Respiratory culture Nom (Unsp spec) Final report Normal [facility] Work Phone: Comment on above: PATIENT NOT FASTINGP ERFORMED BY: [facility] [id number] Andres LocappySt. Luke[facility] Hospital [id number] Information: THROAT SRC:TH CBC W/Diff, Automatedon 12-03 Absolute Lymph 2.10 {X10_3/ul} Normal 0.83-4.51 [facility] Work Phone: Absolute Neut 4.3 {X10_3/uL} Normal 2.0-7.7 Compreh ensive Internal Medicine Work Phone: Basophils/100 WBC Auto (Bld) 0.4 % Normal 0-1 [facility] Work Phone: Eosinophils/100 WBC Auto (Bld) 1.8 % Normal 0-5 [facility] Work Phone: Erythrocyte distribution width Auto Ratio (RBC) 17.7 % Abnormal 11.6-14.6 [facility] Work Phone: Hematocrit Auto Volume Fraction (Bld) 38.0 % Normal 37-47 [facility] Work Phone: Hemoglobin mass conc (Bld) 11.8 g/dL Abnormal 12.0-15.0 [facility] Work Phone: IM GRAN % 0.300 % Normal 0.0-0.9 [facility] Work Phone: Comment on above: IG% - Immature Granu locytes (promyelocytes, myelocytes andmetamyelocytes) > 1% indicates that a LEFT SHIFT is Present. Lymphocytes/100 WBC Auto (Bld) 29.0 % Normal 19-41 [facility] Work Phone: MCH Auto Entitic mass (RBC) 26.9 pg Abnormal 27.0-32.0 [facility] Work Phone: MCHC Auto mass conc (RBC) 31.1 {g/gl} Abnormal 32-36 [facility] Work Phone: MCV Auto Entitic volume (RBC) 86.8 fL Normal 81-99 [facility] Work Phone: Monocytes/100 WBC Auto (Bld) 8.4 % Normal 0-10 [facility] Work Phone: Monocytes/100 WBC Auto (Bld) 8.4 % Normal 0-10 [facility] Work Phone: Neutrophils/100 WBC Auto (Bld) 60.1 % Normal 47-70 [facility] Work Phone: Platelet mean volume Auto Entitic volume (Bld) 10.4 fL Normal 6.2-12.0 [facility] Work Phone: Platelets Auto #/vol (Bld) 385 10*3/uL Normal 150-450 [facility] Work Phone: RBC Auto #/vol (Bld) 4.38 {M/mm3} Normal 4.2-5.4 [facility] Work Phone: RDW SD 55.6 fL Abnormal 35.1-43.9 [facility] Work Phone: WBC Auto #/vol (Bld) 7.2 10*3/uL Normal 4.4-11.0 [facility] Work Phone: CBC W/Diff, Automated 2.10 {X10_3/ul} Normal 0.83-4.51 [facility] Work Phone: CBC W/Diff, Automated 4.3 {X10_3/uL} Normal 2.0-7.7 [facility] Work Phone: CBC W/Diff, Automated 0.300 % Normal 0.0-0.9 [facility] Work Phone: Comment on above: IG% - Immature Granu locytes (promyelocytes, myelocytes andmetamyelocytes) > 1% indicates that a LEFT SHIFT is Present. CBC W/Diff, Automated 55.6 fL Abnormal 35.1-43.9 [facility] Work Phone: Comprehensive Metabolic Prof hipolito 12-26-2016 Comprehensive metabolic 2000 panel 101 U/L Normal 45-117 [facility] Work Phone: Comprehensive metabolic 2000 panel 91 mL/min Normal [facility] Work Phone: Comment on above: Non- GFR Calc [facility] 2000 panel 0.74 mg/dL Normal 0.55-1.02 [facility] Work Phone: Comment on above: The validity of the calculated GFR AND GFRAA in patients over70 years has not been determined. Clinical correlation isessential. [facility] metabolic 2000 panel 16 mg/dL Normal 7-18 [facility] Work Phone: Comprehensive metabolic 2000 panel 0.30 mg/dL Normal 0.20-1.00 [facility] Work Phone: Comprehensive metabolic 2000 panel 3.8 g/dL Normal 3.4-5.0 [facility] Work Phone: Comprehensive metabolic 2000 panel 1.0 {RATIO} Normal 0.9-2.4 [facility] Work Phone: Comprehensive metabolic 2000 panel 8.7 mg/dL Normal 8.5-10.1 [facility] Work Phone: Comprehensive metabolic 2000 panel 23 U/L Normal 15-37 [facility] Work Phone: Comprehensive metabolic 2000 panel 10 1 Normal 5-15 [facility] Work Phone: Comprehensive metabolic 2000 panel 23.0 mmol/L Normal 21.0-32.0 [facility] Work Phone: Comprehensive metabolic 2000 panel 74 mg/dL Normal 70-110 [facility] Work Phone: Comprehensive metabolic 2000 panel 7.6 g/dL Normal 6.4-8.2 [facility] Work Phone: Comprehensive metabolic 2000 panel 21.7 {RATIO} Abnormal 10-20 [facility] Work Phone: Comprehensive metabolic 1999 panel 111 mL/min Normal [facility] Work Phone: Comment on above: GFR Calc Comprehensive metabolic 1999 panel 105 mmol/L Normal 98-107 [facility] Work Phone: Comprehensive metabolic 1999 panel 3.6 mmol/L Normal 3.5-5.1 [facility] Work Phone: Comprehensive metabolic 1999 panel 37 U/L Normal 12-78 [facility] Work Phone: Comprehensive metabolic 1999 panel 138 mmol/L Normal 136-145 [facility] Work Phone: CBC (AUTO) ([id number])Ordered By : Shopfitter on 02-14-2016 Erythrocyte distribution width (RBC) [Ratio] 15.6 % Abnormal 12.3-15.4 [facility] Work Phone: Comment on above: PATIENT NOT FASTINGP ERFORMED BY: JENNIFER [facility] [id number] Andres DwehoNovant Health Ballant[facility] [id number] Hematocrit (Bld) [Volume fraction] 34.9 % Normal 34.0-46.6 [facility] Work Phone: Comment on above: PATIENT NOT FASTINGP ERFORMED BY: CB [facility] [id number] Andres DwehoNovant Health Ballantyne Medical [facility] [id number] MCH (RBC) [Entitic mass] 28.0 pg Normal 26.6-33.0 [facility] Work Phone: Comment on above: PATIENT NOT FASTINGP ERFORMED BY: CB [facility] [id number] Andres Dwehoin [place] [id number] MCHC (RBC) [Mass/Vol] 31.8 g/dL Normal 31.5-35.7 [facility] Work Phone: Comment on above: PATIENT NOT FASTINGP ERFORMED BY: CB [facility] [id number] Andres DwehoNovant Health Ballant[facility] [id number] MCV (RBC) [Entitic vol] 88 fL Normal 79-97 [facility] Work Phone: Comment on above: PATIENT NOT FASTINGP ERFORMED BY: CB [facility] [id number] Andres RoadFabianoNovant Health Ballantyne Medical Center [id number] Platelets (Bld) [#/Vol] 384 {x10E3/uL} Abnormal 150-379 [facility] Work Phone: Comment on above: PATIENT NOT FASTINGP ERFORMED BY: JENNIFER LabCocarolina [id number] Andres RoadDublin [place] [id number] Platelets (Bld) [#/Vol] 384 10*3/uL Abnormal 150-379 [facility]; [facility] Work Phone: Comment on above: PATIENT NOT FASTINGP ERFORMED BY: JENNIFER [facility] [id number] Andres RoadAtrium Health [facility] Centerin [place] [id number] RBC (Bld) [#/Vol] 3.96 {x10E6/uL} Normal 3.77-5.28 [facility] Internal Medicine Work Phone: Comment on above: PATIENT NOT FASTINGP ERFORMED BY: JENNIFER [facility] [id number] Andres RoadAtrium Health [facility] Centerin [place] [id number] RBC (Bld) [#/Vol] 3.96 10*6/uL Normal 3.77-5.28 [facility] Internal Medicine; [facility] Work Phone: Comment on above: PATIENT NOT FASTINGP ERFORMED BY: JENNIFER [facility] [id number] Andres RoadAtrium Health [facility] Centerin [place] [id number] WBC (Bld) [#/Vol] 9.0 {x10E3/uL} Normal 3.4-10.8 [facility] Internal Medicine Work Phone: Comment on above: PATIENT NOT FASTINGP ERFORMED BY: CB [facility] [id number] Andres RoadDublin [place] [id number] WBC (Bld) [#/Vol] 9.0 10*3/uL Normal 3.4-10.8 [facility] Internal Medicine; [facility] Work Phone: Comment on above: PATIENT NOT FASTINGP ERFORMED BY: JENNIFER [facility] [id number] Andres RoadDublin [place] [id number] CBC (AUTO) ([id number])on 016 Erythrocyte distribution width Auto Ratio (RBC) 15.6 % Abnormal 12.3-15.4 [facility] Work Phone: Hematocrit Auto Volume Fraction (Bld) 34.9 % Normal 34.0-46.6 [facility] Work Phone: Hemoglobin mass conc (Bld) 11.1 g/dL Normal 11.1-15.9 [facility] Work Phone: Comment on above: PATIENT NOT FASTINGP ERFORMED BY: LabCoVirtua [facility])[id number] [facility] [id number] MCH Auto Entitic mass (RBC) 28.0 pg Normal 26.6-33.0 [facility] Work Phone: MCHC Auto mass conc (RBC) 31.8 g/dL Normal 31.5-35.7 [facility] Work Phone: MCV Auto Entitic volume (RBC) 88 fL Normal 79-97 [facility] Work Phone: Platelets Auto #/vol (Bld) 384 {x10E3/uL} Abnormal 150-379 [facility] Work Phone: RBC Auto #/vol (Bld) 3.96 {x10E6/uL} Normal 3.77-5.28 [facility] Work Phone: WBC Auto #/vol (Bld) 9.0 {x10E3/uL} Normal 3.4-10.8 [facility] Internal Medicine Work Phone: D-Dimer Quantitative (DVT/PE )on 02-14-2016 D-DIMER QUANT 0.65 {FEU/ug/m} Abnormal 0.27-0.49 [facility] Internal Medicine Work Phone: Comment on above: D-Dimer ELEVATED (>0 .49): Additional studies and clinicalassessments are indicated to conclude diagnosis of:Deep Vein Thrombosis (DVT) or Pulmonary Embolism (PE)CRITICAL VALUE REPEATED AND VERIFIED. CALLED TO [facility] [id number]/13/16 1404 Nia Xiong.RESULTS READ BACK BY SAME . D-Dimer Quantitative (DVT/PE) 0.65 {FEU/ug/m} Abnormal 0.27-0.49 [facility] Internal Medicine Work Phone: Comment on above: D-Dimer ELEVATED (>0 .49): Additional studies and clinicalassessments are indicated to conclude diagnosis of:Deep Vein Thrombosis (DVT) or Pulmonary Embolism (PE)CRITICAL VALUE REPEATED AND VERIFIED. CALLED TO ANA [facility] [id number]/13/16 1404 Nia Xiong.RESULTS READ BACK BY SAME . CBC W/Diff, Automatedon 09-3 Absolute Lymph 2.38 {X10_3/ul} Normal 0.83-4.51 [facility] Internal Medicine Work Phone: Absolute Neut 8.2 {X10_3/uL} Abnormal 2.0-7.7 Compreh [facility] Internal Medicine Work Phone: Basophils/100 WBC Auto (Bld) 0.3 % Normal 0-1 [facility] Internal Medicine Work Phone: Eosinophils/100 WBC Auto (Bld) 1.0 % Normal 0-5 [facility] Internal Medicine Work Phone: Erythrocyte distribution width Auto Ratio (RBC) 13.9 % Normal 11.6-14.6 [facility] Internal Medicine Work Phone: Hematocrit Auto Volume Fraction (Bld) 38.8 % Normal 37-47 [facility] Internal Medicine Work Phone: Hemoglobin mass conc (Bld) 12.7 g/dL Normal 12.0-15.0 [facility] Internal Medicine Work Phone: IM GRAN % 0.200 % Normal 0.0-0.9 [facility] Internal Medicine Work Phone: Comment on above: IG% - Immature Granu locytes (promyelocytes, myelocytes andmetamyelocytes) > 1% indicates that a LEFT SHIFT is Present. Lymphocytes/100 WBC Auto (Bld) 20.6 % Normal 19-41 [facility] Internal Medicine Work Phone: MCH Auto Entitic mass (RBC) 29.6 pg Normal 27.0-32.0 [facility] Internal Medicine Work Phone: MCHC Auto mass conc (RBC) 32.7 {g/gl} Normal 32-36 [facility] Internal [facility] Work Phone: MCV Auto Entitic volume (RBC) 90.4 fL Normal 81-99 [facility] Work Phone: Monocytes/100 WBC Auto (Bld) 7.0 % Normal 0-10 [facility] Work Phone: Monocytes/100 WBC Auto (Bld) 7.0 % Normal 0-10 [facility] Work Phone: Neutrophils/100 WBC Auto (Bld) 70.9 % Abnormal 47-70 [facility] Work Phone: Platelet mean volume Auto Entitic volume (Bld) 10.2 fL Normal 6.2-12.0 [facility] Work Phone: Platelets Auto #/vol (Bld) 367 10*3/uL Normal 150-450 [facility] Work Phone: RBC Auto #/vol (Bld) 4.29 {M/mm3} Normal 4.2-5.4 [facility] Work Phone: RDW SD 44.8 fL Abnormal 35.1-43.9 [facility] Work Phone: WBC Auto #/vol (Bld) 11.6 10*3/uL Abnormal 4.4-11.0 [facility] Internal [facility] Work Phone: CBC W/Diff, Automated 44.8 fL Abnormal 35.1-43.9 [facility] Internal [facility] Work Phone: CBC W/Diff, Automated 0.200 % Normal 0.0-0.9 [facility] Internal [facility] Work Phone: Comment on above: IG% - Immature Granu locytes (promyelocytes, myelocytes andmetamyelocytes) > 1% indicates that a LEFT SHIFT is Present. CBC W/Diff, Automated 2.38 {X10_3/ul} Normal 0.83-4.51 [facility] Internal [facility] Work Phone: CBC W/Diff, Automated 8.2 {X10_3/uL} Abnormal 2.0-7.7 [facility] Work Phone: Comprehensive Metabolic Prof ilanival 01-31-2015 Comprehensive metabolic 2000 panel 103 mmol/L Normal 98-107 [facility] Work Phone: Comprehensive metabolic 2000 panel 1.2 {RATIO} Normal 0.9-2.4 [facility] Work Phone: Comprehensive metabolic 2000 panel 28 U/L Normal 12-78 [facility] Work Phone: Comprehensive metabolic 2000 panel 0.30 mg/dL Normal 0.20-1.00 [facility] Work Phone: Comprehensive metabolic 2000 panel 15 U/L Normal 15-37 [facility] Work Phone: Comprehensive metabolic 2000 panel 10 1 Normal 5-15 [facility] Work Phone: Comprehensive metabolic 2000 panel 8.8 mg/dL Normal 8.5-10.1 [facility] Work Phone: Comprehensive metabolic 2000 panel 3.3 g/dL Normal 2.3-3.5 [facility] Work Phone: Comprehensive metabolic 2000 panel 4.0 g/dL Normal 3.4-5.0 [facility] Work Phone: Comprehensive metabolic 2000 panel 7.3 g/dL Normal 6.4-8.2 [facility] Work Phone: Comprehensive metabolic 2000 panel 28.1 {RATIO} Abnormal 10-20 [facility] Work Phone: Comprehensive metabolic 2000 panel 150 mL/min Normal [facility] Work Phone: Comprehensive metabolic 2000 panel 124 mL/min Normal [facility] Work Phone: Comprehensive metabolic 2000 panel 137 mmol/L Normal 136-145 [facility] Work Phone: Comprehensive metabolic 2000 panel 80 mg/dL Normal 70-110 [facility] Work Phone: Comprehensive metabolic 2000 panel 16 mg/dL Normal 7-18 [facility] Work Phone: Comprehensive metabolic 2000 panel 24.0 mmol/L Normal 21.0-32.0 [facility] Work Phone: Comprehensive metabolic 2000 panel 0.57 mg/dL Normal 0.55-1.20 [facility] Work Phone: Comment on above: The validity of the calculated GFR AND GFRAA in patients over70 years has not been determined. Clinical correlation isessential. Comprehensive metabolic 2000 panel 3.6 mmol/L Normal 3.5-5.1 [facility] Work Phone: Comprehensive metabolic 2000 panel 79 U/L Normal 50-136 [facility] Work Phone: Lipid Profileon 01-31-2015 Cholesterol in HDL mass conc 73 mg/dL Normal [facility] Work Phone: Comment on above: Reference Range HDL <40 mg/dL Low HDL Cholesterol HDL >or= 60 mg/dL High HDL Cholesterol Cholesterol in LDL mass conc 138 mg/dL Abnormal 0-130 [facility] Work Phone: Cholesterol in LDL mass conc 138 mg/dL Abnormal 0-130 [facility] Work Phone: Cholesterol in VLDL mass conc 26 mg/dL Normal 5-40 [facility] Work Phone: Cholesterol mass conc 237 mg/dL Abnormal [facility] Work Phone: Comment on above: <200 mg/dL Desirable 200-240 mg/dL Borderline >240 mg/dL High Risk Triglyceride mass conc 128 mg/dL Normal [facility] Work Phone: Comment on above: Serum Triglycerides Reference Interval Normal <150 mg/dL Borderline high 150 - 199 mg/dL High 200 - 499 mg/dL Very High > or = 500 mg/dL Lipid Profile 26 mg/dL Normal 5-40 Comprehensi ve Internal Medicine Work Phone: Miscellaneous Lab Procedureo n 10-10-2014 [facility] [place] LAB TEST Normal Comprehensi ve Internal Medicine Work Phone: Comment on above: Sent directly to [facility] per ordering physician.10/14/14 1524 [facility] Blood Glucose , Office ([phone])Ordered By: Mariela Coppola on 10-02-2014 Glucose Glucometer molar conc (BldC) 87 1 Normal [facility] Work Phone: C-Reactive Protein, Quanton 10-02-2014 CRP mass conc 6.6 mg/L Abnormal 0.0-4.9 Comprehensi Internal Medicine Work Phone: CBC With Differential/Platel eton 10-02-2014 Basophils Auto #/vol (Bld) 0.1 {x10E3/uL} Normal 0.0-0.2 [facility] Internal Medicine Work Phone: Basophils/100 WBC Auto (Bld) 1 % Normal [facility] Work Phone: Eosinophils Auto #/vol (Bld) 0.1 {x10E3/uL} Normal 0.0-0.4 [facility] Internal [facility] Work Phone: Eosinophils/100 WBC Auto (Bld) 2 % Normal [facility] Work Phone: Erythrocyte distribution width Auto Ratio (RBC) 14.4 % Normal 12.3-15.4 [facility] Internal [facility] Work Phone: Hematocrit Auto Volume Fraction (Bld) 36.0 % Normal 34.0-46.6 [facility] Work Phone: Hemoglobin mass conc (Bld) 11.9 g/dL Normal 11.1-15.9 [facility] Internal [facility] Work Phone: Immature granulocytes #/vol (Bld) 0.0 {x10E3/uL} Normal 0.0-0.1 [facility] Internal [facility] Work Phone: Immature granulocytes/100 WBC (Bld) 0 % Normal [facility] Work Phone: Lymphocytes Auto #/vol (Bld) 2.3 {x10E3/uL} Normal 0.7-3.1 [facility] Internal [facility] Work Phone: Lymphocytes/100 WBC Auto (Bld) 31 % Normal [facility] Work Phone: MCH Auto Entitic mass (RBC) 29.6 pg Normal 26.6-33.0 [facility] Internal [facility] Work Phone: MCHC Auto mass conc (RBC) 33.1 g/dL Normal 31.5-35.7 [facility] Internal [facility] Work Phone: MCV Auto Entitic volume (RBC) 90 fL Normal 79-97 [facility] Internal [facility] Work Phone: Monocytes Auto #/vol (Bld) 0.5 {x10E3/uL} Normal 0.1-0.9 [facility] Work Phone: Monocytes/100 WBC Auto (Bld) 7 % Normal [facility] Work Phone: Neutrophils Auto #/vol (Bld) 4.3 {x10E3/uL} Normal 1.4-7.0 [facility] Work Phone: Neutrophils/100 WBC Auto (Bld) 59 % Normal [facility] Work Phone: Platelets Auto #/vol (Bld) 324 {x10E3/uL} Normal 150-379 [facility] Work Phone: RBC Auto #/vol (Bld) 4.02 {x10E6/uL} Normal 3.77-5.28 [facility] Work Phone: WBC Auto #/vol (Bld) 7.3 {x10E3/uL} Normal 3.4-10.8 [facility] Internal Medicine Work Phone: Comp. Metabolic Panel (14)on 10-02-2014 Albumin mass conc 4.4 g/dL Normal 3.5-5.5 Compreh [facility] Internal Medicine Work Phone: Albumin/Globulin mass ratio 2.1 {ratio} Normal 1.1-2.5 [facility] Internal Medicine Work Phone: ALP enzyme act/vol 79 [iU]/L Normal 39-117 [facility] Work Phone: ALT enzyme act/vol 19 [iU]/L Normal 0-32 [facility] Internal Medicine Work Phone: AST enzyme act/vol 17 [iU]/L Normal 0-40 [facility] Internal Medicine Work Phone: Bilirubin mass conc 0.2 mg/dL Normal 0.0-1.2 Compr [facility] Internal Medicine Work Phone: Calcium mass conc 9.2 mg/dL Normal 8.7-10.2 Compreh [facility] Work Phone: Chloride molar conc 105 mmol/L Normal 97-108 Compr ehensive Internal Medicine Work Phone: CO2 molar conc 23 mmol/L Normal 18-29 Comprehens андрей Internal Medicine Work Phone: Creatinine mass conc 0.58 mg/dL Normal 0.57-1.00 [facility] Work Phone: GFR/1.73 sq M predicted among blacks CKD-EPI vol rate/area (S/P/Bld) 132 mL/min/1.73 Normal Comprehensiv e Internal Medicine Work Phone: GFR/1.73 sq M predicted among non-blacks CKD-EPI vol rate/area (S/P/Bld) 115 mL/min/1.73 Normal [facility] Work Phone: Globulin Calculated mass conc (S) 2.1 g/dL Normal 1.5-4.5 [facility] Work Phone: Glucose mass conc 77 mg/dL Normal 65-99 Compreh ensive Internal Medicine Work Phone: Potassium molar conc 4.3 mmol/L Normal 3.5-5.2 [facility] Work Phone: Protein mass conc 6.5 g/dL Normal 6.0-8.5 Compreh ensive Internal Medicine Work Phone: Sodium molar conc 143 mmol/L Normal 134-144 Compreh ensive Internal Medicine Work Phone: Urea nitrogen mass conc 18 mg/dL Normal 6-24 [facility] Work Phone: Urea nitrogen/Creatinine mass ratio 31 mg/mg Abnormal 9-23 [facility] Work Phone: HgA1C , Office ([id number])Ordere d By: Mariela Coppola on 10-02-2014 Hemoglobin A1c/Hemoglobin.tota l mass fraction (Bld) 5.4 % Normal 4.6 - 7.1 [facility] Work Phone: Magnesium, Serumon 5 Magnesium mass conc 2.0 mg/dL Normal 1.6-2.6 Compr ehensive Internal Medicine Work Phone: Sedimentation Rate-[place] non 10-02-2014 ESR Velocity (Bld) 7 mm/h Normal 0-32 Compre [facility] Internal Medicine Work Phone: TSHon 10-02-2014 Thyrotropin Qn 1.480 {uIU/mL} Normal 0.450-4.500 Compr [facility] Internal Medicine Work Phone: Vitamin B12on 10-02-2014 Cobalamin (Vitamin B12) mass conc 505 pg/mL Normal 211-946 [facility] Internal Medicine Work Phone: Vitamin D, 25-Hydroxyon 25-Hydroxyvitamin D2+25-Hydroxyvitami n D3 mass conc 26.7 ng/mL Abnormal 30.0-100.0 [facility] Internal Medicine Work Phone: Comment on above: Vitamin D deficiency has been defined by the [place] ofMedicine and an Endocrine Society practice guideline as alevel of serum 25-OH vitamin D less than 20 ng/mL (1,2).The Endocrine Society went on to further define vitamin Dinsufficiency as a level between 21 and 29 ng/mL (2).1. IOM ([place] of Medicine). 2010. Dietary reference intakes for calcium and D. [place]: The National Academies Press.2. Haylee MF, Heriberto [place], Kermit ERWIN, et al. Evaluation, treatment, and prevention of vitamin D deficiency: an Endocrine Society clinical practice guideline. JCEM. 2010; 96(7):1911-30. CBC W/Diff, Automatedon 06-05 Absolute Lymph 1.92 {X10_3/ul} Normal 0.83-4.51 Compr [facility] Internal Medicine Work Phone: Absolute Neut 5.0 {X10_3/uL} Normal 2.0-7.7 Compreh [facility] Internal Medicine Work Phone: Basophils/100 WBC Auto (Bld) 0.6 % Normal 0-1 [facility] Internal Medicine Work Phone: Eosinophils/100 WBC Auto (Bld) 2.1 % Normal 0-5 [facility] Internal Medicine Work Phone: Erythrocyte distribution width Auto Ratio (RBC) 13.9 % Normal 11.6-14.6 [facility] Internal Medicine Work Phone: Hematocrit Auto Volume Fraction (Bld) 38.6 % Normal 37-47 [facility] Work Phone: Hemoglobin mass conc (Bld) 12.7 g/dL Normal 12.0-15.0 [facility] Work Phone: IM GRAN % 0.100 % Normal 0.0-0.9 [facility] Work Phone: Comment on above: IG% - Immature Granu locytes (promyelocytes, myelocytes andmetamyelocytes) > 1% indicates that a LEFT SHIFT is Present. Lymphocytes/100 WBC Auto (Bld) 24.8 % Normal 19-41 [facility] Work Phone: MCH Auto Entitic mass (RBC) 29.6 pg Normal 27.0-32.0 [facility] Work Phone: MCHC Auto mass conc (RBC) 32.9 {g/gl} Normal 32-36 [facility] Work Phone: MCV Auto Entitic volume (RBC) 90.0 fL Normal 81-99 [facility] Work Phone: Monocytes/100 WBC Auto (Bld) 7.6 % Normal 0-10 [facility] Work Phone: Monocytes/100 WBC Auto (Bld) 7.6 % Normal 0-10 [facility] Work Phone: Neutrophils/100 WBC Auto (Bld) 64.8 % Normal 47-70 [facility] Work Phone: Platelet mean volume Auto Entitic volume (Bld) 9.8 fL Normal 6.2-12.0 [facility] Work Phone: Platelets Auto #/vol (Bld) 309 10*3/uL Normal 150-450 [facility] Work Phone: RBC Auto #/vol (Bld) 4.29 {M/mm3} Normal 4.2-5.4 [facility] Work Phone: RDW SD 44.5 fL Abnormal 35.1-43.9 [facility] Work Phone: WBC Auto #/vol (Bld) 7.7 10*3/uL Normal 4.4-11.0 [facility] Internal Medicine Work Phone: CBC W/Diff, Automated 5.0 {X10_3/uL} Normal 2.0-7.7 [facility] Internal Medicine Work Phone: CBC W/Diff, Automated 0.100 % Normal 0.0-0.9 [facility] Internal Medicine Work Phone: Comment on above: IG% - Immature Granu locytes (promyelocytes, myelocytes andmetamyelocytes) > 1% indicates that a LEFT SHIFT is Present. CBC W/Diff, Automated 1.92 {X10_3/ul} Normal 0.83-4.51 [facility] Internal Medicine Work Phone: CBC W/Diff, Automated 44.5 fL Abnormal 35.1-43.9 [facility] Internal Medicine Work Phone: Comprehensive Metabolic [facility] 06-26-2014 Albumin mass conc 3.7 g/dL Normal 3.4-5.0 [facility] Internal Medicine Work Phone: Albumin/Globulin mass ratio 1.1 {RATIO} Normal 0.9-2.4 [facility] Internal Medicine Work Phone: ALT enzyme act/vol 31 U/L Normal 12-78 [facility] Internal Medicine Work Phone: AST enzyme act/vol 19 U/L Normal 15-37 [facility] Internal Medicine Work Phone: Bilirubin mass conc 0.60 mg/dL Normal 0.00-4.00 [facility] Internal Medicine Work Phone: Calcium mass conc 8.4 mg/dL Abnormal 8.5-10.1 [facility] Internal Medicine Work Phone: Chloride molar conc 105 mmol/L Normal 98-107 [facility] Internal Medicine Work Phone: CO2 molar conc 26.0 mmol/L Normal 21.0-32.0 [facility]pre[facility] Internal Medicine Work Phone: Creatinine mass conc 0.6 mg/dL Normal 0.6-1.0 [facility] Work Phone: GFR/1.73 sq M predicted among non-blacks MDRD vol rate/area (S/P/Bld) 118 mL/min/{1.73_m2} Normal [facility] Work Phone: Globulin Calculated mass conc (S) 3.4 g/dL Normal 2.7-4.2 [facility] Work Phone: Glucose mass conc 77 mg/dL Normal 70-110 [facility] Work Phone: Potassium molar conc 3.6 mmol/L Normal 3.5-5.1 [facility] Work Phone: Protein mass conc 7.1 g/dL Normal 6.4-8.2 [facility] Work Phone: Sodium molar conc 136 mmol/L Normal 136-145 [facility] Work Phone: Urea nitrogen mass conc 14 mg/dL Normal 7-18 [facility] Work Phone: Comprehensive Metabolic Profil 5 1 Normal 5-15 [facility] Work Phone: Comprehensive Metabolic Profil 86 U/L Normal 50-136 [facility] Work Phone: Comprehensive Metabolic Profil 1.1 {RATIO} Normal 0.9-2.4 [facility] Work Phone: Comprehensive Metabolic Profil 23.3 {RATIO} Abnormal 10-20 [facility] Work Phone: Comprehensive Metabolic Profil 143 mL/min Normal [facility] Work Phone: MISCon 01-10-2014 MISC Normal [facility] Work Phone: Comment on above: Sent directly to [facility] facility per ordering physician.01/18/14 [id number] MYOUNG Vital Signs Date Time Vital Sign Value Performing Clinician Facility 12-29-2023 12:35-0400 Body height 157.5 cm Jasmeet Sexton DO Work Phone: [facility] 12-29-2023 12:35-0400 Body mass index (BMI) [Ratio] 38.81 kg/m2 Jasmeet Darshan DO Work Phone: [facility] 12-29-2023 12:35-0400 Body temperature 98.4 [degF] Jasmeet Darshan DO Work Phone: [facility] 12-29-2023 12:35-0400 Body weight 96.25 kg Jasmeet Darshan DO Work Phone: [facility] 12-29-2023 12:35-0400 Diastolic blood pressure 89 mm[Hg] Jasmeet Darshan DO Work Phone: [facility] 12-29-2023 12:35-0400 Heart rate 74 /min Jasmeet Darshan DO Work Phone: [facility] 12-29-2023 12:35-0400 Respiratory rate 17 /min Jasmeet Darshan DO Work Phone: [facility] 12-29-2023 12:35-0400 SaO2% (BldA) [Mass fraction] 96 % Jasmeet Darshan DO Work Phone: [facility] 12-29-2023 12:35-0400 Systolic blood pressure 134 mm[Hg] Jasmeet Darshan DO Work Phone: [facility] 09-17-2023 11:22-0400 Body height 157.5 cm Jasmeet Darshan DO Work Phone: [facility] 09-17-2023 11:22-0400 Body mass index (BMI) [Ratio] 38.41 kg/m2 Jasmeet Darshan DO Work Phone: [facility] 09-17-2023 11:22-0400 Body temperature 98.49 [degF] Jasmeet Darshan DO Work Phone: [facility] 09-17-2023 11:22-0400 Body weight 95.25 kg Jasmeet Darshan DO Work Phone: [facility] 09-17-2023 11:22-0400 Diastolic blood pressure 86 mm[Hg] Jasmeet Darshan DO Work Phone: [facility] 09-17-2023 11:22-0400 Heart rate 83 /min Jasmeet Sexton DO Work Phone: [facility] 09-17-2023 11:22-0400 Respiratory rate 17 /min Jasmeet Sexton DO Work Phone: [facility] 09-17-2023 11:22-0400 SaO2% (BldA) [Mass fraction] 95 % Jasmeet Sexton DO Work Phone: [facility] 09-17-2023 11:22-0400 Systolic blood pressure 131 mm[Hg] Jasmeet Sexton DO Work Phone: [facility] 09-05-2022 13:40-0400 Body height 157.48 cm [facility]; [facility] Work Phone: 09-05-2022 13:40-0400 Body mass index (BMI) [Ratio] 38.68 kg/m2 [facility]; [facility] Work Phone: 09-05-2022 13:40-0400 Body surface area Derived from formula 1.96 m2 [facility]; [facility] Work Phone: 09-05-2022 13:40-0400 Body temperature 96.9 [degF] [facility] e Internal Medicine; [facility] Work Phone: 09-05-2022 13:40-0400 Body weight 95.94 kg [facility]; [facility] Work Phone: 09-05-2022 13:40-0400 Diastolic blood pressure 80 mm[Hg] [facility]; [facility] Work Phone: Comment on above: Patient Position: Sitting; Cuff Location : Left Arm; Cuff Size: Standard 09-05-2022 13:40-0400 Heart rate 53 /min [facility]; [facility] Work Phone: Comment on above: Pattern: Regular 09-05-2022 13:40-0400 Respiratory rate 18 /min Lily Kendrick [facility] Comprehensiv e Internal Medicine; [facility] Work Phone: Comment on above: Pattern: Unlabored 09-05-2022 13:40-0400 SaO2% (BldA) [Mass fraction] 97 % Lily Kendrick [facility]; [facility] Work Phone: Comment on above: Room air 09-05-2022 13:40-0400 Systolic blood pressure 130 mm[Hg] Lily Kendrick [facility]; [facility] Work Phone: Comment on above: Patient Position: Sitting; Cuff Location : Left Arm; Cuff Size: Standard 08-01-2022 13:24-0400 Body height 157.48 cm Nona Stock LPN [facility]; [facility] Work Phone: 08-01-2022 13:24-0400 Body mass index (BMI) [Ratio] 38.68 kg/m2 Nona Stock LPN [facility]; [facility] Work Phone: 08-01-2022 13:24-0400 Body surface area Derived from formula 1.96 m2 Nona Stock LPN [facility]; [facility] Work Phone: 08-01-2022 13:24-0400 Body temperature 98.2 [degF] Nona Stock LPN [facility]; [facility] Work Phone: Comment on above: Method: Temporal 08-01-2022 13:24-0400 Body weight 95.94 kg Nona Montrell ELYN [facility]; [facility] Work Phone: 08-01-2022 13:24-0400 Diastolic blood pressure 76 mm[Hg] Nona Roserb HEARING AID ASSISTANT [facility]; [facility] Work Phone: Comment on above: Patient Position: Sitting; Cuff Location : Left Arm; Cuff Size: Standard 08-01-2022 13:24-0400 Heart rate 95 /min Nonaespinoza Stock BERNARD [facility]; [facility] Work Phone: Comment on above: Pattern: Regular 08-01-2022 13:24-0400 Respiratory rate 17 /min Nonaespinoza Stock BERNARD [facility]; [facility] Work Phone: Comment on above: Pattern: Unlabored 08-01-2022 13:24-0400 SaO2% (BldA) [Mass fraction] 98 % Nona Slaaaln WAGNER [facility]; [facility] Work Phone: Comment on above: Room air 08-01-2022 13:24-0400 Systolic blood pressure 118 mm[Hg] Nona Slaalan WAGNER [facility]; [facility] Work Phone: Comment on above: Patient Position: Sitting; Cuff Location : Left Arm; Cuff Size: Standard 07-09-2022 11:41-0500 Body height 157.48 cm Florence Loera MA [facility]; [facility] Work Phone: 07-09-2022 11:41-0500 Body mass index (BMI) [Ratio] 38.68 kg/m2 Florence Loera MA [facility]; [facility] Work Phone: 07-09-2022 11:41-0500 Body surface area Derived from formula 1.96 m2 Florence Loera MA [facility]; [facility] Work Phone: 07-09-2022 11:41-0500 Body temperature 95.2 [degF] Florence Loera MA [facility]; [facility] Work Phone: 07-09-2022 11:41-0500 Body weight 95.94 kg Florence Loera MA [facility]; [facility] Work Phone: 07-09-2022 11:41-0500 Diastolic blood pressure 90 mm[Hg] Florence Loera MA [facility]; [facility] Work Phone: Comment on above: Patient Position: Sitting; Cuff Location : Left Arm; Cuff Size: Standard 07-09-2022 11:41-0500 Heart rate 55 /min Florence Loera MA [facility]; [facility] Work Phone: Comment on above: Pattern: Regular 07-09-2022 11:41-0500 Respiratory rate 17 /min Florence Loera MA [facility]; [facility] Work Phone: Comment on above: Pattern: Unlabored 07-09-2022 11:41-0500 SaO2% (BldA) [Mass fraction] 97 % Florence Loera MA [facility]; [facility] Work Phone: Comment on above: Room air 07-09-2022 11:41-0500 Systolic blood pressure 120 mm[Hg] Florence Loera MA [facility]; [facility] Work Phone: Comment on above: Patient Position: Sitting; Cuff Location : Left Arm; Cuff Size: Standard 10-01-2021 13:29-0400 Body height 157.48 cm Susanlizz Acevedo [facility] Comprehensiv e Internal [facility]; [facility] Work Phone: 10-01-2021 13:29-0400 Body mass index (BMI) [Ratio] 38.68 kg/m2 Susan Acevedo [facility]; [facility] Work Phone: 10-01-2021 13:29-0400 Body surface area Derived from formula 1.96 m2 Susan Acevedo [facility]; [facility] Work Phone: 10-01-2021 13:29-0400 Body temperature 97 [degF] Susan Acevedo [facility] Comprehensi ve Internal Medicine; [facility] Work Phone: Comment on above: Method: Thermal Scan 10-01-2021 13:29-0400 Body weight 95.94 kg Susan Acevedo [facility] Com[facility] e [facility]; [facility] Work Phone: 10-01-2021 13:29-0400 Diastolic blood pressure 70 mm[Hg] Susan Manbridgetttwin [facility]; [facility] Work Phone: Comment on above: Patient Position: Sitting; Cuff Location : Left Arm; Cuff Size: Standard 10-01-2021 13:29-0400 Heart rate 87 /min Susan Acevedo CMA [facility]; [facility] Work Phone: Comment on above: Pattern: Regular 10-01-2021 13:29-0400 Respiratory rate 16 /min Susan Acevedo CMA Comprehensi ve Internal Medicine; [facility] Work Phone: Comment on above: Pattern: Unlabored 10-01-2021 13:29-0400 Systolic blood pressure 126 mm[Hg] Susan Acevedo PHOTOGRAMMETRIC ENGINEER [facility]; [facility] Work Phone: Comment on above: Patient Position: Sitting; Cuff Location : Left Arm; Cuff Size: Standard 2021 13:34-0400 Body height 157.48 cm Maura Medina MA [facility]; [facility] Work Phone: 2021 13:34-0400 Body mass index (BMI) [Ratio] 38.68 kg/m2 Maura Medina MA [facility]; [facility] Work Phone: 2021 13:34-0400 Body surface area Derived from formula 1.96 m2 Maura Medina MA [facility]; [facility] Work Phone: 2021 13:34-0400 Body temperature 97.1 [degF] Maura Medina MA [facility]; [facility] Work Phone: Comment on above: Method: Infrared 2021 13:34-0400 Body weight 95.94 kg Maura Medina MA [facility]; [facility] Work Phone: 2021 13:34-0400 Diastolic blood pressure 70 mm[Hg] Maura Medina MA [facility]; [facility] Work Phone: Comment on above: Patient Position: Sitting; Cuff Location : Left Arm; Cuff Size: Standard 2021 13:34-0400 Heart rate 68 /min Maura Medina MA [facility]; [facility] Work Phone: Comment on above: Pattern: Regular 2021 13:34-0400 Respiratory rate 16 /min Maura Medina MA [facility]; [facility] Work Phone: Comment on above: Pattern: Unlabored 2021 13:34-0400 SaO2% (BldA) [Mass fraction] 97 % Maura Medina MA [facility]; [facility] Work Phone: Comment on above: Room air 2021 13:34-0400 Systolic blood pressure 128 mm[Hg] Maura Medina MA [facility]; [facility] Work Phone: Comment on above: Patient Position: Sitting; Cuff Location : Left Arm; Cuff Size: Standard 06-14-2021 08:59-0500 Body height 157.48 cm Nona Slarb HEARING AID ASSISTANT [facility]; [facility] Work Phone: Comment on above: pt did not report 06-14-2021 08:59-0500 Body mass index (BMI) [Ratio] 39.05 kg/m2 Nona Slarb HEARING AID ASSISTANT [facility]; [facility] Work Phone: Comment on above: pt did not report 06-14-2021 08:59-0500 Body surface area Derived from formula 1.97 m2 Nona Slarb HEARING AID ASSISTANT [facility]; [facility] Work Phone: Comment on above: pt did not report 06-14-2021 08:59-0500 Body weight 96.84 kg Nona Slarb HEARING AID ASSISTANT [facility]; [facility] Work Phone: Comment on above: pt did not report 05-13-2021 10:55-0500 Body height 157.48 cm Lindsey Gravius [facility]; [facility] Work Phone: 05-13-2021 10:55-0500 Body mass index (BMI) [Ratio] 39.05 kg/m2 Lindsey Gravius [facility]; [facility] Work Phone: 05-13-2021 10:55-0500 Body surface area Derived from formula 1.97 m2 Lindsey Gravius PHOTOGRAMMETRIC ENGINEER [facility]; [facility] Work Phone: 05-13-2021 10:55-0500 Body temperature 97.1 [degF] Lindsey Guardado CMA [facility]; [facility] Work Phone: Comment on above: Method: Infrared 05-13-2021 10:55-0500 Body weight 96.84 kg Lindsey Guardado [facility]; [facility] Work Phone: 05-13-2021 10:55-0500 Diastolic blood pressure 82 mm[Hg] Lindsey Guardado CMA [facility]; [facility] Work Phone: Comment on above: Patient Position: Sitting; Cuff Location : Left Arm; Cuff Size: Standard 05-13-2021 10:55-0500 Heart rate 84 /min Lindsey Guardado [facility]; [facility] Work Phone: Comment on above: Pattern: Regular 05-13-2021 10:55-0500 Respiratory rate 18 /min Lindsey Guardado CMA [facility]; [facility] Work Phone: Comment on above: Pattern: Unlabored 05-13-2021 10:55-0500 SaO2% (BldA) [Mass fraction] 94 % Lindsey Guardado [facility]; [facility] Work Phone: Comment on above: Room air 05-13-2021 10:55-0500 Systolic blood pressure 134 mm[Hg] Lindsey Guardado [facility]; [facility] Work Phone: Comment on above: Patient Position: Sitting; Cuff Location : Left Arm; Cuff Size: Standard 01-11-2021 14:02-0400 Body height 157.48 cm Lindsey Guardado [facility]; [facility] Work Phone: 01-11-2021 14:02-0400 Body mass index (BMI) [Ratio] 43.26 kg/m2 Lindsey Guardado [facility]; [facility] Work Phone: 01-11-2021 14:02-0400 Body surface area Derived from formula 2.05 m2 Lindsey Guardado CMA [facility]; [facility] Work Phone: 01-11-2021 14:02-0400 Body temperature 97.3 [degF] Lindsey Guardado CMA [facility]; [facility] Work Phone: Comment on above: Method: Infrared 01-11-2021 14:02-0400 Body weight 107.28 kg Lindsey Guardado [facility]; [facility] Work Phone: 01-11-2021 14:02-0400 Diastolic blood pressure 80 mm[Hg] Lindsey Guardado CMA [facility]; [facility] Work Phone: Comment on above: Patient Position: Sitting; Cuff Location : Left Arm; Cuff Size: Standard 01-11-2021 14:02-0400 Heart rate 71 /min Lindsey Guardado [facility]; [facility] Work Phone: Comment on above: Pattern: Regular 01-11-2021 14:02-0400 Respiratory rate 18 /min Lindsey Guardado CMA [facility]; [facility] Work Phone: Comment on above: Pattern: Unlabored 01-11-2021 14:02-0400 SaO2% (BldA) [Mass fraction] 99 % Lindsey Guardado [facility]; [facility] Work Phone: Comment on above: Room air 01-11-2021 14:02-0400 Systolic blood pressure 122 mm[Hg] Lindsey Guardado [facility]; [facility] Work Phone: Comment on above: Patient Position: Sitting; Cuff Location : Left Arm; Cuff Size: Standard 08-30-2020 08:41-0400 Body height 157.48 cm Nancy Lucas DO Work Phone: [facility]; [facility] Work Phone: Comment on above: deidre bp before left 137/88 08-30-2020 08:41-0400 Body mass index (BMI) [Ratio] 43.26 kg/m2 Nancy Lucas DO Work Phone: [facility]; [facility] Work Phone: Comment on above: deidre bp before left 137/88 08-30-2020 08:41-0400 Body surface area Derived from formula 2.05 m2 Nancy Lucas DO Work Phone: [facility]; [facility] Work Phone: Comment on above: deidre bp before left 137/88 08-30-2020 08:41-0400 Body temperature 96.4 [degF] Nancy Lucas DO Work Phone: [facility]; [facility] Work Phone: Comment on above: Method: Infrared deidre bp before left 137/08-30-2020 08:41-0400 Body weight 107.28 kg Nancy Lucas DO Work Phone: [facility]; [facility] Work Phone: Comment on above: deidre bp before left 137/88 08-30-2020 08:41-0400 Diastolic blood pressure 110 mm[Hg] Nancy Lucas DO Work Phone: [facility]; [facility] Work Phone: Comment on above: Patient Position: Sitting; Cuff Location : Left Arm; Cuff Size: Standard deidre bp before left 137/88 08-30-2020 08:41-0400 Heart rate 68 /min Nancy Lucas DO Work Phone: [facility]; [facility] Work Phone: Comment on above: Pattern: Regular deidre bp before left 137/88 08-30-2020 08:41-0400 Respiratory rate 18 /min Nancy Lucas DO Work Phone: [facility]; [facility] Work Phone: Comment on above: Pattern: Unlabored deidre bp before left 137/88 08-30-2020 08:41-0400 SaO2% (BldA) [Mass fraction] 98 % Nancy Lucas DO Work Phone: [facility]; [facility] Work Phone: Comment on above: Room air deidre bp before left 137/88 08-30-2020 08:41-0400 Systolic blood pressure 141 mm[Hg] Nancy Lucas DO Work Phone: [facility]; [facility] Work Phone: Comment on above: Patient Position: Sitting; Cuff Location : Left Arm; Cuff Size: Standard deidre bp before left 137/88 06-21-2020 11:58-0500 Body height 157.48 cm [facility] Internal [facility]; [facility] Work Phone: 06-21-2020 11:58-0500 Body mass index (BMI) [Ratio] 43.26 kg/m2 [facility]; [facility] Work Phone: 06-21-2020 11:58-0500 Body surface area Derived from formula 2.05 m2 [facility]; [facility] Work Phone: 06-21-2020 11:58-0500 Body weight 107.28 kg [facility]; [facility] Work Phone: 03-16-2020 08:55-0500 BMI (Body Mass Index) 43.26 kg/m2 Lindsey Robleroius [facility] Internal Medicine Work Phone: 03-16-2020 08:55-0500 Body Temperature 97.1 [degF] Lindsey Gravius [facility] Comprehensiv e Internal Medicine Work Phone: Comment on above: Method: Infrared 03-16-2020 08:55-0500 Body weight 107.28 kg Lindsey Gravius [facility] Internal Medicine Work Phone: 03-16-2020 08:55-0500 BP Diastolic 88 mm[Hg] Lindsey Gravius [facility] Internal Medicine Work Phone: Comment on above: Patient Position: Sitting; Cuff Location : Left Arm; Cuff Size: Standard 03-16-2020 08:55-0500 BP Systolic 107 mm[Hg] Lindsey Gravius PHOTOGRAMMETRIC ENGINEER [facility] Work Phone: Comment on above: Patient Position: Sitting; Cuff Location : Left Arm; Cuff Size: Standard 03-16-2020 08:55-0500 BSA (Body Surface Area) 2.05 m2 Lindsey Guardado [facility] Medicine Work Phone: 03-16-2020 08:55-0500 Height 157.48 cm Lindsey Guardado [facility] Medicine Work Phone: 03-16-2020 08:55-0500 Pulse (Heart Rate) 64 /min Lindsey Guardado [facility] Comprehens андрей Internal Medicine Work Phone: Comment on above: Pattern: Regular 03-16-2020 08:55-0500 Pulse Oximetry 98 % Nancy Lance [facility] Internal Medicine Work Phone: Comment on above: Room air 03-16-2020 08:55-0500 Respiratory Rate 20 /min Lindsey Guardado [facility] Comprehensiv e Internal Medicine Work Phone: Comment on above: Pattern: Tachypnea (rapid shallow) 03-16-2020 08:55-0500 SaO2% (BldA) [Mass fraction] 98 % Lindsey Guardado [facility] Medicine; [facility] Work Phone: Comment on above: Room air 01-24-2020 10:46-0400 BMI (Body Mass Index) 43.26 kg/m2 Rosalind Looney [facility] Internal Medicine Work Phone: 01-24-2020 10:46-0400 Body Temperature 97.1 [degF] Rosalindritesh Looney [facility] Internal Medicine Work Phone: Comment on above: Method: Temporal 01-24-2020 10:46-0400 Body weight 107.28 kg Rosalind Looney [facility] Internal Medicine Work Phone: 01-24-2020 10:46-0400 BP Diastolic 88 mm[Hg] Rosalind Looney [facility] Internal Medicine Work Phone: Comment on above: Patient Position: Sitting; Cuff Location : Left Arm; Cuff Size: Standard 01-24-2020 10:46-0400 BP Systolic 120 mm[Hg] Rosalind Looney LPN [facility] Internal Medicine Work Phone: Comment on above: Patient Position: Sitting; Cuff Location : Left Arm; Cuff Size: Standard 01-24-2020 10:46-0400 BSA (Body Surface Area) 2.05 m2 Rosalind Looney LPN [facility] Internal Medicine Work Phone: 01-24-2020 10:46-0400 Height 157.48 cm [facility] Work Phone: 01-24-2020 10:46-0400 Pulse (Heart Rate) 94 /min Rosalind Looney LPN Comprehensi ve Internal Medicine Work Phone: Comment on above: Pattern: Regular 01-24-2020 10:46-0400 Pulse Oximetry 97 % Nancy Lucas [facility] Internal Medicine Work Phone: Comment on above: Room air 01-24-2020 10:46-0400 Respiratory Rate 16 /min Rosalind Looney [facility] Internal Medicine Work Phone: Comment on above: Pattern: Unlabored 01-24-2020 10:46-0400 SaO2% (BldA) [Mass fraction] 97 % Rosalind Looney [facility] Internal Medicine; [facility] Work Phone: Comment on above: Room air 12-05-2019 10:39-0400 BMI (Body Mass Index) 36.95 kg/m2 Lindsey Guardado [facility] Medicine Work Phone: 12-05-2019 10:39-0400 Body Temperature 96.9 [degF] Lindsey Guardado [facility] Comprehensiv e Internal Medicine Work Phone: Comment on above: Method: Temporal 12-05-2019 10:39-0400 Body weight 91.64 kg Lindsey Guardado [facility] Medicine Work Phone: 12-05-2019 10:39-0400 BP Diastolic 90 mm[Hg] Lindsey Guardado [facility] Medicine Work Phone: Comment on above: Patient Position: Sitting; Cuff Location : Left Arm; Cuff Size: Standard 12-05-2019 10:39-0400 BP Systolic 141 mm[Hg] Lindsey Guardado [facility] Medicine Work Phone: Comment on above: Patient Position: Sitting; Cuff Location : Left Arm; Cuff Size: Standard 12-05-2019 10:39-0400 BSA (Body Surface Area) 1.92 m2 Lindsey Guardado PHOTOGRAMMETRIC ENGINEER [facility] Work Phone: 12-05-2019 10:39-0400 Height 157.48 cm Lindsey Guardado [facility] Medicine Work Phone: 12-05-2019 10:39-0400 Pulse (Heart Rate) 79 /min Lindsey Guardado CMA Comprehens андрей Internal Medicine Work Phone: Comment on above: Pattern: Regular 12-05-2019 10:39-0400 Pulse Oximetry 95 % Nancy Lucas [facility] Internal Medicine Work Phone: Comment on above: Room air 12-05-2019 10:39-0400 Respiratory Rate 16 /min Lindsey Guardado CMA Comprehensiv e Internal Medicine Work Phone: Comment on above: Pattern: Unlabored 12-05-2019 10:39-0400 SaO2% (BldA) [Mass fraction] 95 % Lindsey Guardado [facility]; [facility] Work Phone: Comment on above: Room air 03-23-2019 09:31-0500 BMI (Body Mass Index) 36.95 kg/m2 Nona Slarb HEARING AID ASSISTANT [facility] Work Phone: 03-23-2019 09:31-0500 Body Temperature 97.3 [degF] Nona Slarb HEARING AID ASSISTANT [facility] Work Phone: 03-23-2019 09:31-0500 Body weight 91.64 kg Nona Slarb HEARING AID ASSISTANT [facility] Work Phone: 03-23-2019 09:31-0500 BP Diastolic 78 mm[Hg] Nona Slarb HEARING AID ASSISTANT [facility] Work Phone: Comment on above: Patient Position: Sitting; Cuff Location : Left Arm; Cuff Size: Standard 03-23-2019 09:31-0500 BP Systolic 126 mm[Hg] Nona Stock LPN [facility] Work Phone: Comment on above: Patient Position: Sitting; Cuff Location : Left Arm; Cuff Size: Standard 03-23-2019 09:31-0500 BSA (Body Surface Area) 1.92 m2 Nona Stock LPN [facility] Work Phone: 03-23-2019 09:31-0500 Height 157.48 cm Nona Stock HEARING AID ASSISTANT [facility] Work Phone: 03-23-2019 09:31-0500 Pulse (Heart Rate) 73 /min Nona Stock LPN Comprehensiv e Internal Medicine Work Phone: Comment on above: Pattern: Regular 03-23-2019 09:31-0500 Pulse Oximetry 96 % Nancy Lucas [facility] Internal Medicine Work Phone: Comment on above: Room air 03-23-2019 09:31-0500 Respiratory Rate 17 /min Nona Stock HEARING AID ASSISTANT [facility] Work Phone: Comment on above: Pattern: Unlabored 03-23-2019 09:31-0500 SaO2% (BldA) [Mass fraction] 96 % Nona Stock HEARING AID ASSISTANT [facility]; [facility] Work Phone: Comment on above: Room air 03-02-2019 13:12-0400 BMI (Body Mass Index) 36.95 kg/m2 Cruz Corrigan LPN [facility] Work Phone: 03-02-2019 13:12-0400 Body Temperature 97.9 [degF] Cruz Corrigan HEARING AID ASSISTANT [facility] Work Phone: Comment on above: Method: Temporal 03-02-2019 13:12-0400 Body weight 91.64 kg Cruz Corrigan LPN [facility] Internal Medicine Work Phone: 03-02-2019 13:12-0400 BP Diastolic 84 mm[Hg] Cruz Corrigan LPN [facility] Internal Medicine Work Phone: Comment on above: Patient Position: Sitting; Cuff Location : Left Arm; Cuff Size: Standard 03-02-2019 13:12-0400 BP Systolic 134 mm[Hg] Cruz Corrigan LPN [facility] Work Phone: Comment on above: Patient Position: Sitting; Cuff Location : Left Arm; Cuff Size: Standard 03-02-2019 13:12-0400 BSA (Body Surface Area) 1.92 m2 Cruz Corrigan LPN [facility] Work Phone: 03-02-2019 13:12-0400 Height 157.48 cm Cruz Corrigan LPN [facility] Work Phone: 03-02-2019 13:12-0400 Pulse (Heart Rate) 81 /min Cruz Corrigan LPN Comprehensiv e Internal Medicine Work Phone: Comment on above: Pattern: Regular 03-02-2019 13:12-0400 Pulse Oximetry 93 % Nancy Lance [facility] Work Phone: Comment on above: Room air 03-02-2019 13:12-0400 Respiratory Rate 16 /min Cruz Corrigan LPN [facility] Work Phone: Comment on above: Pattern: Unlabored 03-02-2019 13:12-0400 SaO2% (BldA) [Mass fraction] 93 % Cruz Corrigan LPN [facility]; [facility] Work Phone: Comment on above: Room air 10-18-2018 11:31-0400 BMI (Body Mass Index) 44.35 kg/m2 Sailaja Allan RN [facility] Work Phone: 10-18-2018 11:31-0400 Body Temperature 97.6 [degF] Sailaja Allan RN [facility] Work Phone: Comment on above: Method: Temporal 10-18-2018 11:31-0400 Body weight 110 kg Sailaja Allan RN [facility] Work Phone: 10-18-2018 11:31-0400 BP Diastolic 68 mm[Hg] Sailaja Allan RN [facility] Work Phone: Comment on above: Patient Position: Sitting; Cuff Location : Left Arm; Cuff Size: Standard 10-18-2018 11:31-0400 BP Systolic 124 mm[Hg] Sailaja Allan RN [facility] Work Phone: Comment on above: Patient Position: Sitting; Cuff Location : Left Arm; Cuff Size: Standard 10-18-2018 11:31-0400 BSA (Body Surface Area) 2.07 m2 Sailaja Allan RN [facility] Work Phone: 10-18-2018 11:31-0400 Height 157.48 cm Sailaja Allan RN [facility] Work Phone: 10-18-2018 11:31-0400 Pulse (Heart Rate) 62 /min Sailaja Allan RN [facility] Work Phone: Comment on above: Pattern: Regular 10-18-2018 11:31-0400 Pulse Oximetry 96 % Nancy Lance [facility] Work Phone: Comment on above: Room air 10-18-2018 11:31-0400 Respiratory Rate 16 /min Sailaja Allan RN [facility] Work Phone: Comment on above: Pattern: Unlabored 10-18-2018 11:31-0400 SaO2% (BldA) [Mass fraction] 96 % Sailaja Allan RN [facility]; [facility] Work Phone: Comment on above: Room air 10-18-2018 11:31-0400 Weight 110 kg Nancy Powellon [facility] Work Phone: 05-05-2018 13:20-0500 BMI (Body Mass Index) 44.35 kg/m2 Sindi Slater [facility] Internal Medicine Work Phone: 05-05-2018 13:20-0500 Body Temperature 98.2 [degF] Sindi Slater [facility] Internal Medicine Work Phone: Comment on above: Method: Temporal 05-05-2018 13:20-0500 Body weight 110 kg Sindi Slater [facility] Internal Medicine Work Phone: 05-05-2018 13:20-0500 BP Diastolic 88 mm[Hg] Sindi Slater [facility] Internal Medicine Work Phone: Comment on above: Patient Position: Sitting; Cuff Location : Left Arm; Cuff Size: Standard 05-05-2018 13:20-0500 BP Systolic 128 mm[Hg] Sindi Slater [facility] Internal Medicine Work Phone: Comment on above: Patient Position: Sitting; Cuff Location : Left Arm; Cuff Size: Standard 05-05-2018 13:20-0500 BSA (Body Surface Area) 2.07 m2 Sindi Slater [facility] Internal Medicine Work Phone: 05-05-2018 13:20-0500 Height 157.48 cm Sindi Slater [facility] Internal Medicine Work Phone: 05-05-2018 13:20-0500 Pulse (Heart Rate) 100 /min Sindi Slater [facility] Internal Medicine Work Phone: Comment on above: Pattern: Regular 05-05-2018 13:20-0500 Pulse Oximetry 97 % Nancy Lucas [facility] Internal Medicine Work Phone: Comment on above: Room air 05-05-2018 13:20-0500 Respiratory Rate 17 /min Sindi Slater [facility] Internal Medicine Work Phone: Comment on above: Pattern: Unlabored 05-05-2018 13:20-0500 SaO2% (BldA) [Mass fraction] 97 % Sindi Slater [facility]; [facility] Work Phone: Comment on above: Room air 05-05-2018 13:20-0500 Weight 110 kg Nancy Lucas [facility] Internal Medicine Work Phone: 02-23-2018 11:37-0400 BMI (Body Mass Index) 44.35 kg/m2 Sailaja Allan RN [facility] Work Phone: Comment on above: pain 6-7 on avg and up to 8 - high pain tolerance 02-23-2018 11:37-0400 Body Temperature 97.5 [degF] Sailaja Allan RN [facility] Work Phone: Comment on above: Method: Temporal pain 6-7 on avg and up to 8 - high pain tolerance 02-23-2018 11:37-0400 Body weight 110 kg Sailaja Allan RN [facility] Work Phone: Comment on above: pain 6-7 on avg and up to 8 - high pain tolerance 02-23-2018 11:37-0400 BP Diastolic 76 mm[Hg] Sailaja Allan RN [facility] Work Phone: Comment on above: Patient Position: Sitting; Cuff Location : Left Arm; Cuff Size: Standard pain 6-7 on avg and up to 8 - high pain tolerance 02-23-2018 11:37-0400 BP Systolic 134 mm[Hg] Sailaja Allan RN [facility] Work Phone: Comment on above: Patient Position: Sitting; Cuff Location : Left Arm; Cuff Size: Standard pain 6-7 on avg and up to 8 - high pain tolerance 02-23-2018 11:37-0400 BSA (Body Surface Area) 2.07 m2 Sailaja Allan RN [facility] Work Phone: Comment on above: pain 6-7 on avg and up to 8 - high pain tolerance 02-23-2018 11:37-0400 Height 157.48 cm Sailaja Allan RN [facility] Work Phone: Comment on above: pain 6-7 on avg and up to 8 - high pain tolerance 02-23-2018 11:37-0400 Pulse (Heart Rate) 91 /min Sailaja Allan RN [facility] Work Phone: Comment on above: Pattern: Regular pain 6-7 on avg and up to 8 - high pain tolerance 02-23-2018 11:37-0400 Pulse Oximetry 98 % Nancy Lance [facility] Work Phone: Comment on above: Room air pain 6-7 on avg and up to 8 - high pain tolerance 02-23-2018 11:37-0400 Respiratory Rate 16 /min Sailaja Allan RN [facility] Work Phone: Comment on above: Pattern: Unlabored pain 6-7 on avg and up to 8 - high pain tolerance 02-23-2018 11:37-0400 SaO2% (BldA) [Mass fraction] 98 % Sailaja Allan RN [facility]; [facility] Work Phone: Comment on above: Room air pain 6-7 on avg and up to 8 - high pain tolerance 02-23-2018 11:37-0400 Weight 110 kg Nancy Lucas [facility] Work Phone: Comment on above: pain 6-7 on avg and up to 8 - high pain tolerance 02-15-2018 10:43-0400 BMI (Body Mass Index) 44.35 kg/m2 Jenelle London [facility] Work Phone: Comment on above: Pulse recheck 113-in pain 02-15-2018 10:43-0400 Body Temperature 98.9 [degF] Jenelle London [facility] Work Phone: Comment on above: Method: Temporal Pulse recheck 113-in pain 02-15-2018 10:43-0400 Body weight 110 kg Jenelle London [facility] Work Phone: Comment on above: Pulse recheck 113-in pain 02-15-2018 10:43-0400 BP Diastolic 76 mm[Hg] Jenelle London [facility] Work Phone: Comment on above: Patient Position: Sitting; Cuff Location : Left Arm; Cuff Size: Standard Pulse recheck 113-in pain 02-15-2018 10:43-0400 BP Systolic 142 mm[Hg] Jenelle London [facility] Work Phone: Comment on above: Patient Position: Sitting; Cuff Location : Left Arm; Cuff Size: Standard Pulse recheck 113-in pain 02-15-2018 10:43-0400 BSA (Body Surface Area) 2.07 m2 Jenelle London [facility] Internal Medicine Work Phone: Comment on above: Pulse recheck 113-in pain 02-15-2018 10:43-0400 Height 157.48 cm Jenelle London [facility] Internal Medicine Work Phone: Comment on above: Pulse recheck 113-in pain 02-15-2018 10:43-0400 Pulse (Heart Rate) 138 /min Jenelle London [facility] Internal Medicine Work Phone: Comment on above: Pattern: Regular Pulse recheck 113-in pain 02-15-2018 10:43-0400 Pulse Oximetry 98 % Nancy Lucas [facility] Work Phone: Comment on above: Room air Pulse recheck 113-in pain 02-15-2018 10:43-0400 Respiratory Rate 16 /min Jenelle London [facility] Work Phone: Comment on above: Pattern: Unlabored Pulse recheck 113-in pain 02-15-2018 10:43-0400 SaO2% (BldA) [Mass fraction] 98 % Jenelle London [facility]; [facility] Work Phone: Comment on above: Room air Pulse recheck 113-in pain 02-15-2018 10:43-0400 Weight 110 kg Nancy Lucas [facility] Work Phone: Comment on above: Pulse recheck 113-in pain 12-14-2017 14:04-0400 BMI (Body Mass Index) 44.35 kg/m2 Sindi Slater [facility] Internal Medicine Work Phone: 12-14-2017 14:04-0400 Body Temperature 98.8 [degF] Sindi Slater [facility] Internal Medicine Work Phone: Comment on above: Method: Temporal 12-14-2017 14:04-0400 Body weight 110 kg Sindi Slater [facility] Internal Medicine Work Phone: 12-14-2017 14:04-0400 BP Diastolic 86 mm[Hg] Sindi Slater [facility] Internal Medicine Work Phone: Comment on above: Patient Position: Sitting; Cuff Location : Left Arm; Cuff Size: Standard 12-14-2017 14:04-0400 BP Systolic 138 mm[Hg] Sindi Slater [facility] Internal Medicine Work Phone: Comment on above: Patient Position: Sitting; Cuff Location : Left Arm; Cuff Size: Standard 12-14-2017 14:04-0400 BSA (Body Surface Area) 2.07 m2 Sindi Slater [facility] Internal Medicine Work Phone: 12-14-2017 14:04-0400 Height 157.48 cm Sindi Slater [facility] Internal Medicine Work Phone: 12-14-2017 14:04-0400 Pulse (Heart Rate) 73 /min Sindi Slater [facility] Internal Medicine Work Phone: Comment on above: Pattern: Regular 12-14-2017 14:04-0400 Pulse Oximetry 97 % Nancy Lucas [facility] Internal Medicine Work Phone: Comment on above: Room air 12-14-2017 14:04-0400 Respiratory Rate 20 /min Sindi Nohemy [facility] Internal Medicine Work Phone: Comment on above: Pattern: Unlabored 12-14-2017 14:04-0400 SaO2% (BldA) [Mass fraction] 97 % Sindi Walterslear [facility]; [facility] Work Phone: Comment on above: Room air 12-14-2017 14:04-0400 Weight 110 kg Nancy Lucas [facility] Medicine Work Phone: 08-11-2017 10:20-0400 BMI (Body Mass Index) 41.45 kg/m2 Cruz Corrigan LPN [facility] Work Phone: 08-11-2017 10:20-0400 Body Temperature 97.5 [degF] Cruz Corrigan LPN [facility] Work Phone: 08-11-2017 10:20-0400 Body weight 106.14 kg Cruz Corrigan LPN [facility] Medicine Work Phone: 08-11-2017 10:20-0400 BP Diastolic 84 mm[Hg] Cruz Corrigan LPN [facility] Internal Medicine Work Phone: Comment on above: Patient Position: Sitting; Cuff Location : Left Arm; Cuff Size: Standard 08-11-2017 10:20-0400 BP Systolic 140 mm[Hg] Cruz Corrigan LPN [facility] Internal Medicine Work Phone: Comment on above: Patient Position: Sitting; Cuff Location : Left Arm; Cuff Size: Standard 08-11-2017 10:20-0400 BSA (Body Surface Area) 2.07 m2 Cruz Corrigan LPN [facility] Internal Medicine Work Phone: 08-11-2017 10:20-0400 Height 160.02 cm Cruz Corrigan LPN [facility] Internal Medicine Work Phone: 08-11-2017 10:20-0400 Pulse (Heart Rate) 91 /min Cruz Corrigan LPN Com[facility] Work Phone: Comment on above: Pattern: Regular 08-11-2017 10:20-0400 Pulse Oximetry 96 % Nancy Lucas [facility] Work Phone: Comment on above: Room air 08-11-2017 10:20-0400 Respiratory Rate 18 /min Cruz Shekhar HEARING AID ASSISTANT [facility] Work Phone: Comment on above: Pattern: Unlabored 08-11-2017 10:20-0400 SaO2% (BldA) [Mass fraction] 96 % Cruz Shekhar HEARING AID ASSISTANT [facility]; [facility] Work Phone: Comment on above: Room air 08-11-2017 10:20-0400 Weight 106.14 kg Nancy Lucas [facility] Medicine Work Phone: 08-10-2017 10:39-0400 BMI (Body Mass Index) 41.45 kg/m2 Susan Acevedo PHOTOGRAMMETRIC ENGINEER [facility] Work Phone: 08-10-2017 10:39-0400 Body Temperature 98.3 [degF] Susan Acevedo CMA Comprehensi [facility] Medicine Work Phone: Comment on above: Method: Temporal 08-10-2017 10:39-0400 Body weight 106.14 kg Susan Acevedo CMA Comprehensiv e [facility] Medicine Work Phone: 08-10-2017 10:39-0400 BP Diastolic 70 mm[Hg] Susan Acevedo CMA Comprehensiv e [facility] Medicine Work Phone: Comment on above: Patient Position: Sitting; Cuff Location : Left Arm; Cuff Size: Standard 08-10-2017 10:39-0400 BP Systolic 115 mm[Hg] Susan Acevedo CMA Comprehensiv e [facility] Medicine Work Phone: Comment on above: Patient Position: Sitting; Cuff Location : Left Arm; Cuff Size: Standard 08-10-2017 10:39-0400 BSA (Body Surface Area) 2.07 m2 Susan Acevedo PHOTOGRAMMETRIC ENGINEER [facility] Work Phone: 08-10-2017 10:39-0400 Height 160.02 cm Susan Acevedo CMA Comprehensiv e [facility] Medicine Work Phone: 08-10-2017 10:39-0400 Pulse (Heart Rate) 85 /min Susan Acevedo CMA Comprehen sive Internal Medicine Work Phone: Comment on above: Pattern: Regular 08-10-2017 10:39-0400 Pulse Oximetry 98 % Nancy Lucas [facility] Work Phone: Comment on above: Room air 08-10-2017 10:39-0400 Respiratory Rate 16 /min Susan Acevedo CMA Comprehensi ve [facility] Medicine Work Phone: Comment on above: Pattern: Unlabored 08-10-2017 10:39-0400 SaO2% (BldA) [Mass fraction] 98 % Susan Acevedo CMA [facility]; [facility] Work Phone: Comment on above: Room air 08-10-2017 10:39-0400 Weight 106.14 kg Nancy Lucas [facility] Work Phone: 08-05-2017 11:02-0400 BMI (Body Mass Index) 41.45 kg/m2 Nona Slarb HEARING AID ASSISTANT [facility] Work Phone: 08-05-2017 11:02-0400 Body Temperature 98.2 [degF] Nona Slarb HEARING AID ASSISTANT [facility] Work Phone: 08-05-2017 11:02-0400 Body weight 106.14 kg Nona Slarb HEARING AID ASSISTANT [facility] Work Phone: 08-05-2017 11:02-0400 BP Diastolic 88 mm[Hg] Nona Slarb HEARING AID ASSISTANT [facility] Work Phone: Comment on above: Patient Position: Sitting; Cuff Location : Left Arm; Cuff Size: Standard 08-05-2017 11:02-0400 BP Systolic 132 mm[Hg] Nona Slarb HEARING AID ASSISTANT [facility] Work Phone: Comment on above: Patient Position: Sitting; Cuff Location : Left Arm; Cuff Size: Standard 08-05-2017 11:02-0400 BSA (Body Surface Area) 2.07 m2 Nona Slarb HEARING AID ASSISTANT [facility] Work Phone: 08-05-2017 11:02-0400 Height 160.02 cm Nona Stock LPN [facility] Work Phone: 08-05-2017 11:02-0400 Pulse (Heart Rate) 68 /min Nona Stock LPN Com[facility] Work Phone: Comment on above: Pattern: Regular 08-05-2017 11:02-0400 Pulse Oximetry 98 % Nancy Lucas [facility] Work Phone: Comment on above: Room air 08-05-2017 11:02-0400 Respiratory Rate 17 /min Nona Roserb HEARING AID ASSISTANT [facility] Work Phone: Comment on above: Pattern: Unlabored 08-05-2017 11:02-0400 SaO2% (BldA) [Mass fraction] 98 % Nona Roserb HEARING AID ASSISTANT [facility]; [facility] Work Phone: Comment on above: Room air 08-05-2017 11:02-0400 Weight 106.14 kg Nancy Lucas [facility] Work Phone: 05-06-2017 12:03-0500 BMI (Body Mass Index) 41.45 kg/m2 Nona Roserb HEARING AID ASSISTANT [facility] Work Phone: 05-06-2017 12:03-0500 Body Temperature 97.8 [degF] Nona Roserb HEARING AID ASSISTANT [facility] Work Phone: 05-06-2017 12:03-0500 Body weight 106.14 kg Nona Roserb HEARING AID ASSISTANT [facility] Work Phone: 05-06-2017 12:03-0500 BP Diastolic 84 mm[Hg] Nona Slarb HEARING AID ASSISTANT [facility] Work Phone: Comment on above: Patient Position: Sitting; Cuff Location : Left Arm; Cuff Size: Standard 05-06-2017 12:03-0500 BP Systolic 132 mm[Hg] Nona Slarb HEARING AID ASSISTANT [facility] Work Phone: Comment on above: Patient Position: Sitting; Cuff Location : Left Arm; Cuff Size: Standard 05-06-2017 12:03-0500 BSA (Body Surface Area) 2.07 m2 Nona Stock LPN [facility] Work Phone: 05-06-2017 12:03-0500 Height 160.02 cm Nona Roserb HEARING AID ASSISTANT [facility] Work Phone: 05-06-2017 12:03-0500 Pulse (Heart Rate) 88 /min Nona Stock LPN [facility] Work Phone: Comment on above: Pattern: Regular 05-06-2017 12:03-0500 Pulse Oximetry 98 % Nancy Lucas [facility] Work Phone: Comment on above: Room air 05-06-2017 12:03-0500 Respiratory Rate 16 /min Nona Roserb HEARING AID ASSISTANT [facility] Work Phone: Comment on above: Pattern: Unlabored 05-06-2017 12:03-0500 SaO2% (BldA) [Mass fraction] 98 % Nona Slarb HEARING AID ASSISTANT [facility]; [facility] Work Phone: Comment on above: Room air 05-06-2017 12:03-0500 Weight 106.14 kg Nancy Lucas [facility] Work Phone: 03-30-2017 13:07-0500 BMI (Body Mass Index) 40.79 kg/m2 Nona Roserb HEARING AID ASSISTANT [facility] Work Phone: 03-30-2017 13:07-0500 Body Temperature 97.8 [degF] Nona Roserb HEARING AID ASSISTANT [facility] Work Phone: 03-30-2017 13:07-0500 Body weight 104.44 kg Nona Roserb HEARING AID ASSISTANT [facility] Work Phone: 03-30-2017 13:07-0500 BP Diastolic 84 mm[Hg] Nona Slarb HEARING AID ASSISTANT [facility] Work Phone: Comment on above: Patient Position: Sitting; Cuff Location : Left Arm; Cuff Size: Standard 03-30-2017 13:07-0500 BP Systolic 132 mm[Hg] Nona Slarb HEARING AID ASSISTANT [facility] Work Phone: Comment on above: Patient Position: Sitting; Cuff Location : Left Arm; Cuff Size: Standard 03-30-2017 13:07-0500 BSA (Body Surface Area) 2.05 m2 Nona Stock LPN [facility] Work Phone: 03-30-2017 13:07-0500 Height 160.02 cm Nona Stock LPN [facility] Work Phone: 03-30-2017 13:07-0500 Pulse (Heart Rate) 112 /min Nona Stock LPN [facility] Work Phone: Comment on above: Pattern: Regular 03-30-2017 13:07-0500 Pulse Oximetry 97 % Nancy Lucas [facility] Work Phone: Comment on above: Room air 03-30-2017 13:07-0500 Respiratory Rate 16 /min Nona Stock LPN [facility] Work Phone: Comment on above: Pattern: Unlabored 03-30-2017 13:07-0500 SaO2% (BldA) [Mass fraction] 97 % Nona Stock LPN [facility]; [facility] Work Phone: Comment on above: Room air 03-30-2017 13:07-0500 Weight 104.44 kg Nancy Lucas [facility] Work Phone: 02-14-2016 11:03-0400 BMI (Body Mass Index) 41.36 kg/m2 Jenelle Castellon RN [facility] Work Phone: 02-14-2016 11:03-0400 Body Temperature 97.3 [degF] Jenelle Castellon RN [facility] Work Phone: Comment on above: Method: Temporal 02-14-2016 11:03-0400 Body weight 105.92 kg Jenelle Castellon RN [facility] Work Phone: 02-14-2016 11:03-0400 BP Diastolic 108 mm[Hg] Jenelle Castellon RN [facility] Work Phone: Comment on above: Patient Position: Sitting; Cuff Location : Left Arm; Cuff Size: Large 02-14-2016 11:03-0400 BP Systolic 162 mm[Hg] Jenelle Castellon RN [facility] Work Phone: Comment on above: Patient Position: Sitting; Cuff Location : Left Arm; Cuff Size: Large 02-14-2016 11:03-0400 BSA (Body Surface Area) 2.07 m2 Jenelle Castellon RN [facility] Work Phone: 02-14-2016 11:03-0400 Height 160.02 cm Jenelle Castellon RN [facility] Work Phone: 02-14-2016 11:03-0400 Pulse (Heart Rate) 96 /min Jenelle Castellon RN [facility] Work Phone: Comment on above: Pattern: Regular 02-14-2016 11:03-0400 Pulse Oximetry 98 % Nancy Lucas [facility] Work Phone: Comment on above: Room air 02-14-2016 11:03-0400 Respiratory Rate 18 /min Jenelle Castellon RN [facility] Work Phone: Comment on above: Pattern: Unlabored 02-14-2016 11:03-0400 SaO2% (BldA) [Mass fraction] 98 % Jenelle Castellon RN [facility]; [facility] Work Phone: Comment on above: Room air 02-14-2016 11:03-0400 Weight 105.92 kg Nancy Lucas [facility] Work Phone: 12-14-2015 13:09-0400 BMI (Body Mass Index) 41.36 kg/m2 Jenelle Castellon RN [facility] Work Phone: 12-14-2015 13:09-0400 Body weight 105.92 kg Jenelle Castellon RN [facility] Work Phone: 12-14-2015 13:09-0400 BP Diastolic 78 mm[Hg] Jenelle aCstellon RN [facility] Work Phone: Comment on above: Patient Position: Sitting; Cuff Location : Left Arm; Cuff Size: Standard 12-14-2015 13:09-0400 BP Systolic 122 mm[Hg] Jenelle Castellon RN [facility] Work Phone: Comment on above: Patient Position: Sitting; Cuff Location : Left Arm; Cuff Size: Standard 12-14-2015 13:09-0400 BSA (Body Surface Area) 2.07 m2 Jenelle Castellon RN [facility] Work Phone: 12-14-2015 13:09-0400 Height 160.02 cm Jenelle Castellon RN [facility] Work Phone: 12-14-2015 13:09-0400 Pulse (Heart Rate) 81 /min Jenelle Castellon RN [facility] Work Phone: Comment on above: Pattern: Regular 12-14-2015 13:09-0400 Pulse Oximetry 96 % Nancy Lance [facility] Work Phone: Comment on above: Room air 12-14-2015 13:09-0400 SaO2% (BldA) [Mass fraction] 96 % Jenelle Castellon RN [facility]; [facility] Work Phone: Comment on above: Room air 12-14-2015 13:09-0400 Weight 105.92 kg Nancygulshan Powellon [facility] Work Phone: 11-02-2015 11:48-0400 BMI (Body Mass Index) 41.65 kg/m2 Jenelle Castellon RN [facility] Work Phone: 11-02-2015 11:48-0400 Body weight 106.65 kg Jenelle Castellon RN [facility] Work Phone: 11-02-2015 11:48-0400 BP Diastolic 82 mm[Hg] Jenelle Castellon RN [facility] Work Phone: 11-02-2015 11:48-0400 BP Systolic 122 mm[Hg] Jenelle Castellon RN [facility] Work Phone: 11-02-2015 11:48-0400 BSA (Body Surface Area) 2.07 m2 Jenelle Castellon RN [facility] Work Phone: 11-02-2015 11:48-0400 Height 160.02 cm Jenelle Castellon RN [facility] Work Phone: 11-02-2015 11:48-0400 Pulse (Heart Rate) 89 /min Jenelle Castellon RN [facility] Work Phone: Comment on above: Pattern: Regular 11-02-2015 11:48-0400 Pulse Oximetry 96 % Nancy Lucas [facility] Work Phone: Comment on above: Room air 11-02-2015 11:48-0400 SaO2% (BldA) [Mass fraction] 96 % Jenelle Castellon RN [facility]; [facility] Work Phone: Comment on above: Room air 11-02-2015 11:48-0400 Weight 106.65 kg Nancy Lucas [facility] Work Phone: 06-05-2015 14:01-0500 BMI (Body Mass Index) 40.99 kg/m2 Nona Slarb HEARING AID ASSISTANT [facility] Work Phone: 06-05-2015 14:01-0500 Body Temperature 97.8 [degF] Nona Slarb HEARING AID ASSISTANT [facility] Work Phone: 06-05-2015 14:01-0500 Body weight 104.95 kg Nona Slarb HEARING AID ASSISTANT [facility] Work Phone: 06-05-2015 14:01-0500 BP Diastolic 78 mm[Hg] Nona Slarb HEARING AID ASSISTANT [facility] Work Phone: Comment on above: Patient Position: Sitting; Cuff Location : Left Arm; Cuff Size: Standard 06-05-2015 14:01-0500 BP Systolic 112 mm[Hg] Nona Slarb HEARING AID ASSISTANT [facility] Work Phone: Comment on above: Patient Position: Sitting; Cuff Location : Left Arm; Cuff Size: Standard 06-05-2015 14:01-0500 BSA (Body Surface Area) 2.06 m2 Nona Slarb HEARING AID ASSISTANT [facility] Work Phone: 06-05-2015 14:01-0500 Height 160.02 cm Nona Slarb HEARING AID ASSISTANT [facility] Work Phone: 06-05-2015 14:01-0500 Pulse (Heart Rate) 111 /min Nona Slarb HEARING AID ASSISTANT [facility] Work Phone: Comment on above: Pattern: Regular 06-05-2015 14:01-0500 Pulse Oximetry 98 % Nancy Lucas [facility] Work Phone: Comment on above: Room air 06-05-2015 14:01-0500 Respiratory Rate 18 /min Nona Stock BERNARD [facility] Work Phone: Comment on above: Pattern: Unlabored 06-05-2015 14:01-0500 SaO2% (BldA) [Mass fraction] 98 % Nona Stock HEARING AID ASSISTANT [facility]; [facility] Work Phone: Comment on above: Room air 06-05-2015 14:01-0500 Weight 104.95 kg Nancy Lucas [facility] Work Phone: 10-11-2014 16:00-0400 BMI (Body Mass Index) 40.27 kg/m2 [facility] Work Phone: 10-11-2014 16:00-0400 Body weight 103.11 kg Mariela [facility] Work Phone: 10-11-2014 16:00-0400 BP [facility] 62 mm[facility]Hg[facility]: Comment on above: Patient Position: Sitting; Cuff Location : Left Arm; Cuff Size: Standard 10-11-2014 16:00-0400 BP Systolic 120 mm[Hg] Mariela [facility] Work Phone: Comment on above: Patient Position: Sitting; Cuff Location : Left Arm; Cuff Size: Standard 10-11-2014 16:00-0400 BSA (Body Surface Area) 2.04 m2 Mariela [facility] Work Phone: 10-11-2014 16:00-0400 Height 160.02 [facility] Work Phone: 10-11-2014 16:00-0400 Pulse (Heart Rate) 101 /min Mariela [facility] Work Phone: Comment on above: Pattern: Regular 10-11-2014 16:00-0400 Pulse Oximetry 98 % Nancy Lucas [facility] Work Phone: Comment on above: Room air 10-11-2014 16:00-0400 Respiratory Rate 18 /min Mariela Coppola [facility] Work Phone: Comment on above: Pattern: Unlabored 10-11-2014 16:00-0400 SaO2% (BldA) [Mass fraction] 98 % Mariela Coppola [facility]; [facility] Work Phone: Comment on above: Room air 10-11-2014 16:00-0400 Weight 103.11 kg Nancy Lucas [facility] Work Phone: 10-02-2014 12:08-0400 BMI (Body Mass Index) 40.27 kg/m2 Mariela Coppola [facility] Work Phone: 10-02-2014 12:08-0400 Body Temperature 97.9 [degF] Mariela Coppola [facility] Work Phone: Comment on above: Method: Tympanic 10-02-2014 12:08-0400 Body weight 103.11 kg Mariela Coppola [facility] Work Phone: 10-02-2014 12:08-0400 BP Diastolic 78 mm[Hg] Mariela Coppola [facility] Work Phone: Comment on above: Patient Position: Sitting; Cuff Location : Left Arm; Cuff Size: Standard 10-02-2014 12:08-0400 BP Systolic 138 mm[Hg] Mariela Coppola [facility] Work Phone: Comment on above: Patient Position: Sitting; Cuff Location : Left Arm; Cuff Size: Standard 10-02-2014 12:08-0400 BSA (Body Surface Area) 2.04 m2 Mariela Coppola [facility] Work Phone: 10-02-2014 12:08-0400 Height 160.02 cm Mariela Coppola [facility] Work Phone: 10-02-2014 12:08-0400 Pulse (Heart Rate) 68 /min Mariela Coppola [facility] Work Phone: Comment on above: Pattern: Regular 10-02-2014 12:08-0400 Pulse Oximetry 98 % Nancy Lucas [facility] Work Phone: Comment on above: Room air 10-02-2014 12:08-0400 Respiratory Rate 18 /min Mariela Coppola [facility] Work Phone: Comment on above: Pattern: Unlabored 10-02-2014 12:08-0400 SaO2% (BldA) [Mass fraction] 98 % Mariela Coppola [facility]; [facility] Work Phone: Comment on above: Room air 10-02-2014 12:08-0400 Weight 103.11 kg Nancy Lucas [facility] Work Phone: 02-03-2014 14:07-0400 BMI (Body Mass Index) 40.29 kg/m2 Nancy Lucas [facility] Work Phone: 02-03-2014 14:07-0400 Body weight 103.17 kg Nancy Lucas [facility] Work Phone: 02-03-2014 14:07-0400 BP Diastolic 76 mm[Hg] Nancy Lucas [facility] Work Phone: Comment on above: Patient Position: Sitting; Cuff Location : Left Arm; Cuff Size: Standard 02-03-2014 14:07-0400 BP Systolic 126 mm[Hg] Nancy Lucas [facility] Work Phone: Comment on above: Patient Position: Sitting; Cuff Location : Left Arm; Cuff Size: Standard 02-03-2014 14:07-0400 BSA (Body Surface Area) 2.04 m2 Nancy Lucas [facility] Work Phone: 02-03-2014 14:07-0400 Height 160.02 cm Nancy Lucas [facility] Work Phone: 02-03-2014 14:07-0400 Pulse (Heart Rate) 100 /min Nancy Lucas [facility] Work Phone: Comment on above: Pattern: Regular 02-03-2014 14:07-0400 Pulse Oximetry 97 % Nancy Lucas [facility] Work Phone: Comment on above: Room air 02-03-2014 14:07-0400 Respiratory Rate 18 /min Nancy Lucas [facility] Work Phone: 02-03-2014 14:07-0400 SaO2% (BldA) [Mass fraction] 97 % Nancy Lucas DO Work Phone: [facility]; [facility] Work Phone: Comment on above: Room air 02-03-2014 14:07-0400 Weight 103.17 kg Nancy Lucas [facility] Work Phone: 01-23-2014 13:38-0400 BMI (Body Mass Index) 40.29 kg/m2 Steph Kumari [facility] Work Phone: 01-23-2014 13:38-0400 Body Temperature 97.7 [degF] Steph Kumari [facility] Work Phone: Comment on above: Method: Oral 01-23-2014 13:38-0400 Body weight 103.17 kg Steph Kumari [facility] Work Phone: 01-23-2014 13:38-0400 BP Diastolic 78 mm[Hg] Steph Kumari [facility] Work Phone: Comment on above: Patient Position: Sitting; Cuff Location : Left Arm; Cuff Size: Standard 01-23-2014 13:38-0400 BP Systolic 120 mm[Hg] Steph Kumari [facility] Work Phone: Comment on above: Patient Position: Sitting; Cuff Location : Left Arm; Cuff Size: Standard 01-23-2014 13:38-0400 BSA (Body Surface Area) 2.04 m2 Steph Kumari [facility] Work Phone: 01-23-2014 13:38-0400 Height 160.02 cm Steph Kumari [facility] Work Phone: 01-23-2014 13:38-0400 Pulse (Heart Rate) 68 /min Steph Kumari [facility] Work Phone: Comment on above: Pattern: Regular 01-23-2014 13:38-0400 Pulse Oximetry 97 % Nancy Lucas [facility] Work Phone: Comment on above: Room air 01-23-2014 13:38-0400 Respiratory Rate 18 /min Steph Kumari [facility] Work Phone: Comment on above: Pattern: Unlabored 01-23-2014 13:38-0400 SaO2% (BldA) [Mass fraction] 97 % Steph Smith [facility]; [facility] Work Phone: Comment on above: Room air 01-23-2014 13:38-0400 Weight 103.17 kg Nancy Lucas [facility] Work Phone: 01-12-2014 07:44-0400 BMI (Body Mass Index) 40.29 kg/m2 Jenelle Castellon RN [facility] Work Phone: 01-12-2014 07:44-0400 Body weight 103.17 kg Jenelle Castellon RN [facility] Work Phone: 01-12-2014 07:44-0400 BP Diastolic 78 mm[Hg] Jenelle Castellon RN [facility] Work Phone: Comment on above: Patient Position: Sitting; Cuff Location : Left Arm; Cuff Size: Standard 01-12-2014 07:44-0400 BP Systolic 118 mm[Hg] Jenelle Castellon RN [facility] Work Phone: Comment on above: Patient Position: Sitting; Cuff Location : Left Arm; Cuff Size: Standard 01-12-2014 07:44-0400 BSA (Body Surface Area) 2.04 m2 Jenelle Castellon RN [facility] Work Phone: 01-12-2014 07:44-0400 Height 160.02 cm Jenelle Castellon RN [facility] Work Phone: 01-12-2014 07:44-0400 Pulse (Heart Rate) 75 /min Jenelle Castellon RN [facility] Work Phone: Comment on above: Pattern: Regular 01-12-2014 07:44-0400 Pulse Oximetry 98 % Nancy Lucas [facility] Work Phone: Comment on above: Room air 01-12-2014 07:44-0400 Respiratory Rate 18 /min Jenelle Castellon RN [facility] Work Phone: Comment on above: Pattern: Unlabored 01-12-2014 07:44-0400 SaO2% (BldA) [Mass fraction] 98 % Jenelle Castellon RN [facility]; [facility] Work Phone: Comment on above: Room air 01-12-2014 07:44-0400 Weight 103.17 kg Nancy Lucas [facility] Work Phone: 08-31-2013 14:50-0400 BMI (Body Mass Index) 40.58 kg/m2 Jenelle Castellon RN [facility] Work Phone: 08-31-2013 14:50-0400 Body Temperature 98.5 [degF] Jenelle Castellon RN [facility] Work Phone: Comment on above: Method: Oral 08-31-2013 14:50-0400 Body weight 103.9 kg Jenelle Castellon RN [facility] Work Phone: 08-31-2013 14:50-0400 BP Diastolic 88 mm[Hg] Jenelle Castellon RN [facility] Work Phone: Comment on above: Patient Position: Sitting; Cuff Location : Left Arm; Cuff Size: Large 08-31-2013 14:50-0400 BP Systolic 132 mm[Hg] Jenelle Castellon RN [facility] Work Phone: Comment on above: Patient Position: Sitting; Cuff Location : Left Arm; Cuff Size: Large 08-31-2013 14:50-0400 BSA (Body Surface Area) 2.05 m2 Jenelle Castellon RN [facility] Work Phone: 08-31-2013 14:50-0400 Height 160.02 cm Jenelle Castellon RN [facility] Work Phone: 08-31-2013 14:50-0400 Pulse (Heart Rate) 103 /min Jenelle Castellon RN [facility] Work Phone: Comment on above: Pattern: Regular 08-31-2013 14:50-0400 Pulse Oximetry 98 % Nancy Lucas [facility] Work Phone: Comment on above: Room air 08-31-2013 14:50-0400 Respiratory Rate 20 /min Jenelle Castellon RN [facility] Work Phone: Comment on above: Pattern: Unlabored 08-31-2013 14:50-0400 SaO2% (BldA) [Mass fraction] 98 % Jenelle Castellon RN [facility]; [facility] Work Phone: Comment on above: Room air 08-31-2013 14:50-0400 Weight 103.9 kg Nancy Lucas [facility] Work Phone: Encounters Encounter Date Encounter Type Care Provider Facility Start: 01-05-2024 End: 01-05-2024 ambulatory [facility] Start: 12-29-2023 End: 12-29-2023 Office outpatient visit 25 minutes Jasmeet Sexton DO Work Phone: [facility] Comment on above: Exertional dyspnea ( Primary Dx); Dysautonomia-like disorder; Fibromyalgia; Healthcare maintenance Start: 12-29-2023 End: 12-29-2023 Patient encounter status Jasmeet Sexton DO Work Phone: [facility] Start: 12-29-2023 End: 12[facility]29[facility]: 12-29-2023 End: 12-29-2023 Encounter for general adult medical examination without [facility] Start: 11-13-2023 End: 11-13-2023 Emergency department patient visit JASMEET SEXTON [facility] Start: 09-17-2023 End: 09-21-2023 ambulatory JASMEETLORETTA WILKINSON [facility] Start: 09-17-2023 End: 09-17-2023 Office outpatient new 45 minutes Jasmeet Sexton DO Work Phone: [facility] Comment on above: Chronic urticaria (P rimary Dx); Dysautonomia-like disorder; Fibromyalgia; Rash and nonspecific skin eruption Start: 09-17-2023 End: 09-17-2023 ambulatory JASMEET SEXTON [facility] Start: 09-05-2022 Review Nancy Fearo n DO Work Phone: [facility] Start: 09-05-2022 End: 09-15-2022 Office outpatient visit 15 minutes Nancy Lance DO Work Phone: [facility] Start: 08-01-2022 End: 08-01-2022 Office outpatient visit 15 minutes Nancy Lance DO Work Phone: [facility] Start: 07-17-2022 End: 07-17-2022 Annotation/Addendum Nancy Lance DO Work Phone: [facility] Start: 07-09-2022 End: 07-09-2022 Office outpatient visit 15 minutes Nancy Lance DO Work Phone: [facility] Start: 11-12-2021 End: 11-12-2021 Patient encounter procedure Nancy Lance DO Work Phone: [facility] Start: 10-02-2021 End: 10-02-2021 Annotation/Addendum Nancy Lance DO Work Phone: [facility] Start: 10-01-2021 End: 12-17-2021 Office outpatient visit 10 minutes Nancy Lance DO Work Phone: [facility] Start: 10-01-2021 Review Nancy Fearo n DO Work Phone: [facility] Start: 08-08-2021 End: 08-08-2021 Annotation/Addendum Nancy Lance DO Work Phone: [facility] Start: 2021 End: 2021 Office outpatient visit 15 minutes Nancy Lance DO Work Phone: [facility] Start: 06-14-2021 End: 06-14-2021 Office outpatient visit 15 minutes Nancy Lance DO Work Phone: [facility] Start: 05-13-2021 End: 05-13-2021 Office outpatient visit 25 minutes Nancy Lance DO Work Phone: [facility] Start: 05-13-2021 Review Nancygulshan Powello n DO Work Phone: [facility] Start: 01-11-2021 End: 01-11-2021 Office outpatient visit 25 minutes Nancy Lance DO Work Phone: [facility] Start: 09-03-2020 End: 09-03-2020 Annotation/Addendum Nancy Lance DO Work Phone: [facility] Start: 08-30-2020 End: 08-30-2020 Office outpatient visit 15 minutes Nancy Lance DO Work Phone: [facility] Start: 06-21-2020 End: 06-21-2020 Office outpatient visit 15 minutes Nancy Lance DO Work Phone: [facility] Start: 03-26-2020 End: 03-26-2020 Annotation/Addendum Nancy Lance [facility] Assistant Professor Of Biology al Medicine Start: 03-21-2020 End: 03-21-2020 Phone Encounter Nancy Lance [facility] Assistant Professor Of Biology al Medicine Start: 03-19-2020 End: 03-19-2020 Annotation/Addendum Nancy Lance Comprehensive Assistant Professor Of Biology al Medicine Start: 03-16-2020 End: 03-16-2020 Office outpatient visit 25 minutes Nancy [facility] Start: 02-01-2020 Review Nancy Lance Compreh ens[facility] Internal Medicine Start: 01-27-2020 End: 01-27-2020 Annotation/Addendum Nancy Lance Comprehensive Assistant Professor Of Biology al Medicine Start: 01-26-2020 End: 01-26-2020 Annotation/Addendum Nancy Lance [facility] Assistant Professor Of Biology al Medicine Start: 01-24-2020 End: 01-24-2020 Office outpatient visit 10 minutes Nancy [facility] Start: 12-05-2019 End: 12-05-2019 Office outpatient visit 10 minutes Nancy [facility] Start: 12-05-2019 Review Nancykirti Lucas Compreh ensive Internal Medicine Start: 03-23-2019 End: 03-23-2019 Office outpatient visit 15 minutes Nancy [facility] Start: 03-02-2019 End: 03-02-2019 Office outpatient visit 25 minutes Nancy [facility] Start: 03-02-2019 Review Nancykirti Lucas Compre[facility] ens[facility] Internal Medicine Start: 10-18-2018 End: 10-18-2018 Office outpatient visit 15 minutes Nancy [facility] Start: 05-05-2018 Patient encounter procedure Nancy Lucas [facility] Start: 05-05-2018 End: 05-05-2018 Office outpatient visit 15 minutes Nancy Lucas [facility] Internal Medicine Start: 02-23-2018 End: 02-23-2018 Office outpatient visit 25 minutes Nancy Lucas [facility] Internal Medicine Start: 02-16-2018 End: 02-16-2018 Annotation/Addendum Nancy Lucas Comprehensive Assistant Professor Of Biology al Medicine Start: 02-15-2018 End: 02-15-2018 Office outpatient visit 15 minutes Nancy [facility] Start: 12-14-2017 End: 12-14-2017 Office outpatient visit 15 minutes Nancy [facility] Start: 10-17-2017 Patient encounter Facil [id number] Start: 08-11-2017 End: 08-11-2017 Office outpatient visit 15 minutes Nancy [facility] Start: 08-10-2017 End: 08-10-2017 Office outpatient visit 15 minutes Nancy [facility] Start: 08-05-2017 End: 08-05-2017 Annotation/Addendum Nancy Lucas [facility] Assistant Professor Of Biology al Medicine Start: 08-05-2017 End: 08-05-2017 Office outpatient visit 15 minutes Nancy [facility] Start: 05-26-2017 End: 05-26-2017 Phone Encounter Nancy Hendrix Assistant Professor Of Biology al Medicine Start: 05-06-2017 End: 05-06-2017 Office outpatient visit 15 minutes Nancy [facility] Start: 03-30-2017 End: 03-30-2017 Office outpatient visit 15 minutes Nancy [facility] Start: 02-14-2016 End: 02-14-2016 Office outpatient visit 25 minutes Nancy Powellon [facility] Start: 12-14-2015 End: 12-14-2015 Office outpatient visit 15 minutes Nancy [facility] Start: 11-02-2015 End: 11-02-2015 Phone Encounter Nancy Lucas Ruma Assistant Professor Of Biology al Medicine Start: 11-02-2015 End: 11-02-2015 Office outpatient visit 15 minutes Nancygulshan Powellon [facility] Start: 06-05-2015 End: 06-05-2015 Office outpatient visit 15 minutes Nancygulshan Powellon [facility] Start: 10-11-2014 End: 10-11-2014 Office outpatient visit 15 minutes Nancygulshan Powellon [facility] Start: 10-02-2014 End: 10-02-2014 Office outpatient visit 25 minutes Nancygulshan Powellon [facility] Start: 03-21-2014 End: 03-21-2014 Phone Encounter Nancy Lucas [facility] Assistant Professor Of Biology al Medicine Start: 02-03-2014 End: 02-03-2014 Office outpatient visit 25 minutes Nancy Lance [facility] Start: 01-23-2014 End: 01-23-2014 Office outpatient visit 25 minutes Nancy Lcuas [facility] Start: 01-12-2014 End: 01-12-2014 Office outpatient visit 15 minutes Nancy Powellon [facility] Start: 08-31-2013 End: 08-31-2013 Patient encounter Nancy Lucas [facility] Assistant Professor Of Biology al Medicine Procedures Date Procedure Procedure Detail Performing Clinician Start: 06-10-2023 Mammography Jasmeet Sexton DO Work Phone: Start: 09-24-2022 End: 09-24-2022 Echo Complete Procedure Note: See Note; NOTES: [facility] Cardiovascular Services [address] [place] [id number] Echo Complete 09/24/22 1305 MR#: [id number] Acct: [id number] Name: LATIA MOODY Rep #: [id number] : 1975 47 From: Bereket Romero MD Attending Dr: Deepa Killian NP-C Status: REG CLI Ordering Dr: Deepa Killian PREPRESS PROOFER-C Date: 09/24/22 Location: CVS Sex: F C Admitted: Reason For Study: Abnormal EKG Procedure This was a 2D Doppler, Color Flow transthoracic echocardiogram. Exam performed in department. Left Ventricle Normal LV size. Left ventricular systolic function is normal. The estimated ejection fraction is 65 %. No regional wall motion abnormalities noted. Right Ventricle Normal RV size. Normal systolic function. Atria Normal left atrium. Normal right atrium. Mitral Valve Normal mitral valve. Tricuspid Valve Normal tricuspid valve. Aortic Valve Normal aortic valve. Trisinus/trileaflet aortic valve. Pulmonic Valve Normal pulmonic valve. Great Vessels Normal aortic root. The pulmonary artery is normal size. Normal inferior vena cava. Pericardium/Pleural No pericardial effusion. MMode/2D Measurements Calculations LVIDd: 4.2 cm IVSd: 0.98 cm LVOT diam: 2.0 cm LVIDs: 2.7 cm LVPWd: 1.0 cm LVOT area: 3.2 cm2 RVDd: 3.1 cm FS: 35.1 % Ao root diam: 3.4 cm LAV(MOD-bp): 30.4 ml LVAd ap4: 23.7 cm2 LAV(MOD-bp) Indexed: 15.5 ml/m2 LVLd ap4: 6.8 cm LAV(MOD-sp2): 35.5 ml EDV(MOD-sp4): 67.0 ml LAV(MOD-sp4): 25.0 ml EDV(sp4-el): 70.0 ml LVAs ap4: 12.4 cm2 LVLs ap4: 5.9 cm ESV(MOD-sp4): 21.9 ml ESV(sp4-el): 22.1 ml EF(MOD-sp4): 67.3 % EF(sp4-el): 68.4 % LVAd ap2: 20.3 cm2 SV(MOD-sp4): 45.1 ml SV(MOD-sp2): 30.5 ml LVLd ap2: 6.9 cm EDV(MOD-sp2): 51.7 ml EDV(sp2-el): 50.6 ml LVAs ap2: 11.9 cm2 LVLs ap2: 6.2 cm ESV(MOD-sp2): 21.2 ml ESV(sp2-el): 19.4 ml EF(MOD-sp2): 59.1 % SV(sp4-el): 47.8 ml LA dimension(2D): 3.2 cm LA A4 area: 12.1 cm2 RA A4 area: 11.2 cm2 Time Measurements MV dec time: 0.26 sec Doppler Measurements Calculations MV E max norma: 58.8 cm/sec Lat Peak E' Norma: 8.5 cm/sec Med Peak E' Norma: 8.3 cm/sec MV A max norma: 50.2 cm/sec E/E' lat: 6.9 E/E' med: 7.1 MV E/A: 1.2 Ao V2 max: 118.3 cm/sec LV V1 max: 76.0 cm/sec MV dec slope: 222.0 cm/sec2 Ao max P.6 mmHg LV V1 max P.3 mmHg LIO(V,D): 2.1 cm2 PA V2 max: 73.7 cm/sec PA max PG (full): 1.4 mmHg ECHO/Echo Complete Interpretation Summary Normal LV size. Left ventricular systolic function is normal. The estimated ejection fraction is 65 %. Structurally normal valves. Ordering Physician: Deepa Killian Referring Physician: Nancy Lucas M.D. Performed By: Jeri Larkin RDCS 09/24/221846 Date Bereket Romero MD CC: PREPRESS PROOFER-C Deepa Killian; Dr. Nancy Lucas DO Date Dictated: 09/24/22 1305 Date Transcribed: 09/24/221846 Power Machine Operator: Teresa Killian CNP Work Phone: Start: 03-31-2022 End: 03-31-2022 Gastroenterology Visit Report Procedure Note: See Note; NOTES: [facility] Gastroenterology [address] [place] [address] OFFICE VISIT Date of Service: 03/31/22 MR#: [id number] Acct: [id number] Name: LATIA MOODY Rep #: [id number] : 1975 Provider: NOLA Tillman Age/Sex: 46/F Location: [facility] Status: Signed Intake Vital Signs 09/26/21 16:06 03/17/22 12:10 03/31/22 10:46 Height 5 ft 2 in 5 ft 2 in 5 ft 2 in Weight: 216 lb BMI 39.4 BP 114/82 H Blood Pressure Location Rt brachial Position Sitting Pulse 78 Pulse Oximetry (%) 96 Oxygen Delivery Method room air Intake Visit Reasons: 2 WK FU Chief Complaint: f/u EGD Allergies codeine Adverse Reaction (Severe, Verified 03/31/22 10:45) itchy, nausea Medications omeprazole 40 mg capsule,delayed release 40 mg PO QHS #90 caps 03/17/19 [History Confirmed 03/31/22] fexofenadine 180 mg tablet 10 mg PO DAILY ALLERGIES 03/12/20 [History Confirmed 03/31/22] albuterol sulfate 90 mcg/actuation aerosol inhaler 2 puff IH Q4H PRN SHORTNESS OF BREATH ##1 03/14/20 [Rx Confirmed 03/31/22] Cholecalciferol (Vitamin D3) [Vitamin D3] 25 mcg PO DAILY 06/21/20 [History Confirmed 03/31/22] ascorbic acid 1,000 lr-dztaiuyjfktf-usavkobj powder effervescent pack 1,000 mg PO DAILY 06/21/20 [History Confirmed 03/31/22] calcium carbonate 500 mg calcium (1,250 mg) tablet 1,000 mg PO DAILY 06/21/20 [History Confirmed 03/31/22] fluticasone propionate 50 mcg/actuation nasal spray,suspension 2 spray NASAL DAILY 06/21/20 [History Confirmed 03/31/22] magnesium oxide 400 mg PO DAILY 06/21/20 [History Confirmed 03/31/22] zinc gluconate 30 mg tablet 15 mg PO DAILY 06/21/20 [History Confirmed 03/31/22] duloxetine 30 mg capsule,delayed release 30 mg PO DAILY 08/13/21 [History Confirmed 03/31/22] meloxicam 15 mg tablet 15 mg PO DAILY 08/13/21 [History Confirmed 03/31/22] cetirizine 10 mg tablet (Zyrtec) 10 mg PO DAILY 12/25/21 [History Confirmed 03/31/22] sucralfate 1 gram tablet 1 g PO BID #60 tabs 03/17/22 [Rx Confirmed 03/31/22] PFSH Medical History Acid reflux Anemia Arthritis Asthma Blurred vision Cancer COVID-19 Fibromyalgia Former smoker Gastric reflux Gastroenteritis GERD (gastroesophageal reflux disease) History of edema Hx of basal cell carcinoma Injury of back Injury of head and neck Low back pain Mouth sores Neuropathy Pneumonia due to COVID-19 virus RLS (restless legs syndrome) Shortness of breath at rest Sleep disorder Syncope Unspecified asthma with (acute) exacerbation Vomiting and diarrhea Wears glasses Surgical History H/O rhinoplasty History of delivery Hx of cholecystectomy Hx of knee surgery Hx of surgical procedure Social History household members: spouse current occupational status: unemployed Smoking Status: Former smoker alcohol intake: never substance use type: does not use diet: other what type of physical activity do you participate in: walking and yoga frequency: daily seatbelt use: always do you feel safe at home: Yes additional social history: - [place] Female Reproductive History Menstrual Ab spontaneous: 2 HPI HPI Chief Complaint: f/u EGD Details: LATIA MOODY, is a 46 F who presents to the office today for discussion of EGD which was indicated for a long hx of GERD which requires PPI therapy. She has taken medication for GERD since age 14. EsoGuard screening test for Polanco's esophagus was indeterminate. EGD revealed LA Grade A reflux esophagitis, medium sized hiatal hernia, nonbleeding 6 mm gastric ulcer; biopsies negative for gastric pathology, negative for H pylori, negative for Polanco's. Omeprazole 40 mg daily is effective. She had colonoscopy 5-7 years ago for blood in stool, unremarkable. Had EGD then too.??? No history of Polanco's.??? High protein and vegetable diet, has lost 40 lbs in the past year. Tends to be a bit constipated but no discomfort. No melena or hematochezia.??? No nausea, vomiting, dysphagia.??? No abdominal pain. 03/17/22 EGD Impression: ? - LA Grade A reflux esophagitis. Biopsied. ? - Medium-sized hiatal hernia. ? - Non-bleeding gastric ulcer with no stigmata ? of bleeding. Biopsied. ? - Normal second portion of the duodenum MICROSCOPIC DIAGNOSIS A. Gastric ulcer biopsy: Fragments of gastric mucosa with focal ulceration and acute and chronic inflammation. See comment. Negative for H Pylori B. Distal esophagus biopsy: Fragments of gastroesophageal mucosa with chronic inflammation. Intestinal metaplasia (goblet cell metaplasia) not identified ROS Const Constitutional: Positive for fatigue and weight change ENT ENT: No difficulty swallowing Gastro GI: No abdominal pain, belching, bloating, change in bowel habits, change in stool character, coffee ground emesis, constipation, cramping, diarrhea, heartburn, difficulty swallowing, feeling full early, excessive flatus, incontinent of stools, Vomiting blood/hematemesis, Blood in stool, loose stools, Black,tarry stools, nausea/dyspepsia, pain with swallowing, vomiting or other Musc Musculoskeletal: Positive for joint pain, back pain, joint swelling, stiffness, Arthritis, sciatica and restless legs Skin Skin: Positive for dry skin and itchy eyes; No yellowing of the eye Neuro Neurology: Positive for restless legs Psych Psychiatric: No anxiety and No depression Endo Endocrine: Positive for fatigue and weight change Aller/Imm Allergy/Immunologic: Positive for itchy eyes Fabrice/Lymp Hematologic/Lymphatic: No easy bleeding or easy bruising Exam Const General: cooperative and comfortable Nutritional Appearance: obese Orientation: alert, awake and oriented x3 Quality Reporting Tobacco Screening ([facility] 138) Smoking Status: Former smoker Assessment and Plan Assessment and Plan (1) GERD (gastroesophageal reflux disease): Status: Acute Plan: We discussed EGD findings--hiatal hernia, reflux, neg polanco's. Continue omeprazole 40 mg daily. Complete course of sucralfate for gastric ulcer. f/u one yr. She prefers not to do EsoGuard again. She has been exercising daily for more than a year, and does intermittent fasting, continues to lose weight over time. Coding Level of Care Code Off vis,est,level 3 Diagnoses GERD (gastroesophageal reflux disease) K21.9 03/31/22 1106 <Electronically signed by Meera Tillman NP PREPRESS PROOFER-C> Date Meera Tillman NP PREPRESS PROOFER-C Cosigner Signature: Date (if applicable) CC: DO Nancy Guy DO Work Phone: Start: 03-17-2022 End: 03-17-2022 EGD Report Procedure Note: See Note; NOTES: [facility] Medical Records Department [address] [place] [address] EGD Report MR#: [id number] Acct: [id number] Name: LATIA MOODY Rep #: [id number] : 1975 46 From: Francisco Montana DO PCP: Dr. Nancy Lucas DO Status:REG [facility] Patient Name: Latia Moody Procedure Date: 03/17/2022 12:31 PM Date of : 1975 Age: 46 Procedure: Upper GI endoscopy Indications: Functional Dyspepsia, Abnormal CT of the GI tract Providers: Francisco Montana DO Medicines: Monitored Anesthesia Care Patient Profile: This is a 46 year old female. Refer to note in patient chart for documentation of history and physical. Patient has symptoms of acute dyspepsia. Complications: No immediate complications. Procedure: Pre-Anesthesia Assessment: - Prior to the procedure, a History and Physical was performed, and patient medications and allergies were reviewed. The risks and benefits of the procedure and the sedation options and risks were discussed with the patient. All questions were answered and informed consent was obtained. Patient identification and proposed procedure were verified by the physician in the pre-procedure area. Mental Status Examination: alert and oriented. Respiratory Examination: clear to auscultation. CV Examination: normal. Prophylactic Antibiotics: The patient does not require prophylactic antibiotics. Prior Anticoagulants: The patient has taken no previous anticoagulant or antiplatelet agents. ASA Grade Assessment: II - A patient with mild systemic disease. After reviewing the risks and benefits, the patient was deemed in satisfactory condition to undergo the procedure. The anesthesia plan was to use monitored anesthesia care (MAC). Immediately prior to administration of medications, the patient was re-assessed for adequacy to receive sedatives. The heart rate, respiratory rate, oxygen saturations, blood pressure, adequacy of pulmonary ventilation, and response to care were monitored throughout the procedure. The physical status of the patient was re-assessed after the procedure. After obtaining informed consent, the endoscope was passed under direct vision. Throughout the procedure, the patient's blood pressure, pulse, and oxygen saturations were monitored continuously. The Endoscope was introduced through the mouth, and advanced to the second part of duodenum. The upper GI endoscopy was accomplished without difficulty. The patient tolerated the procedure well. Findings: The Z-line was irregular and was found 38 cm from the incisors. Biopsies were taken with a cold forceps for histology. Verification of patient identification for the specimen was done. Estimated blood loss was minimal. A medium-sized hiatal hernia was present. No other significant abnormalities were identified in a careful examination of the stomach. Diffuse mildly erythematous mucosa without active bleeding and with no stigmata of bleeding was found in the first portion of the duodenum and in the second portion of the duodenum. Biopsies were taken with a cold forceps for histology. Verification of patient identification for the specimen was done. Estimated blood loss was minimal. Impression: - Z-line irregular, 38 cm from the incisors. Biopsied. - Medium-sized hiatal hernia. - Erythematous duodenopathy. Biopsied. Recommendation: - Discharge patient to home. - Resume previous diet. - Continue present medications. - Await pathology results. Procedure Code(s): --- Professional --- 17588, Esophagogastroduodenoscopy, flexible, transoral; with biopsy, single or multiple CPT copyright 2017 [employer]. All rights reserved. The codes documented in this report are preliminary and upon bilingual call center representative review may be revised to meet current compliance requirements. Francisco Montana DO 03/17/2022 1:07:00 PM This report has been signed electronically. Number of Addenda: 0 Note Initiated On: 03/17/2022 12:31 PM 03/17/22 1307 Date Francisco Montana DO Cosigner Signature: Date (if indicated) CC: Dr. Nancy Lucas DO; Francisco Montana DO Date Dictated: 03/17/22 1231 Date Transcribed: Power Machine Operator: ALEJANDRO Signed Nancy Lucas DO Work Phone: Start: 03-17-2022 End: 03-17-2022 History and Physical Exam Procedure Note: See Note; NOTES: [facility] Medical Records Department [address] [place] [address] History Physical Exam 03/17/22 1156 MR#: [id number] Acct: [id number] Name: LATIA MOODY Rep #: [id number] : 1975 46 From: Francisco Montana DO PCP: Dr. Nancy Lucas DO Status:[facility] Location: [place] [address] History and Physical Date of Admission: 03/17/22 LATIA MOODY, is a 46 F who presents to the office today for needs to schedule EGD.??? She has been on medication since the age of 14 for GERD.??? She previously took Nexium, now is on omeprazole 40 mg daily.??? [facility] did an Esoguard test for Polanco's esophagus, the test was inconclusive. If she eats late then she might need gaviscon at , but typically omeprazole 40 mg daily is effective. She had colonoscopy 5-7 years ago for blood in stool, unremarkable. Had EGD then too.??? No history of Polanco's.??? High protein and vegetable diet, has lost 40 lbs in the past year. Tends to be a bit constipated but no discomfort. No melena or hematochezia.??? No nausea, vomiting, dysphagia.??? No abdominal pain Comorbidities include fibromyalgia, history of basal cell carcinoma on her nose, restless leg syndrome, asthma, history cholecystectomy, rheumatoid arthritis ROS Const Constitutional: No fatigue ENT ENT: No difficulty swallowing Cardio Cardiology: Positive for leg pain with exertion Gastro GI: Positive for bloating, heartburn and excessive flatus; No abdominal pain, belching, change in bowel habits, change in stool character, coffee ground emesis, constipation, cramping, diarrhea, difficulty swallowing, feeling full early, incontinent of stools, Vomiting blood/hematemesis, Blood in stool, loose stools, Black,tarry stools, nausea/dyspepsia, pain with swallowing, vomiting or other Musc Musculoskeletal: Positive for joint pain, back pain, muscle cramps, muscle weakness, stiffness, Arthritis, restless legs and leg pain with exertion Skin Skin: No yellowing of the eye or itchy eyes Neuro Neurology: Positive for restless legs Psych Psychiatric: No anxiety and No depression Endo Endocrine: No fatigue Aller/Imm Allergy/Immunologic: No itchy eyes Fabrice/Lymp Hematologic/Lymphatic: Positive for easy bruising; No easy bleeding Exam Const General: cooperative, comfortable, well developed and well groomed Nutritional Appearance: obese Eyes General: appearance normal, both eyes and all related structures Resp Effort Inspection: normal respiratory effort Quality Reporting Tobacco Screening ([facility] 138) Smoking Status: Former smoker Assessment and Plan Assessment and Plan (1) GERD (gastroesophageal reflux disease): ?Status:???Acute ?Plan - Meera Tillman PREPRESS PROOFER, PREPRESS PROOFER-C: 46 yr old female with long hx of GERD, well controlled with PPI. Recent EsoGuard test was indeterminate. We will schedule her for EGD w/ f/u 2 wks later. She declines screening colonoscopy at this time. I have examined the patient and the H P has been reviewed. There are no clinical changes since date of exam. 03/17/22 1155 <Electronically signed by Francisco Montana DO> Cosigner Signature (if applicable): CC: Dr. Nancy Lucas DO; Francisco Montana DO Signed Nancy Lucas DO Work Phone: Start: 01-14-2022 End: 01-14-2022 Pelvic (Non ) Comments: See Note; NOTES: [facility] Imaging Services [address] [place] [address] Pelvic (Non ) MR#: [id number] Acct: [id number] Name: LATIA MOODY Rep #: [id number] : 1975 F 46 From: Amarjit garcia MD PCP: Dr. Nancy Lucas DO Status: REG CLI Study: Pelvic (Non ) Date of Exam: 01/14/22 Exam# [id number] Ordering Dr: Annie Estrada NP PREPRESS PROOFER -C STUDY: ULTRASOUND OF THE FEMALE PELVIS - COMPLETE REASON FOR EXAM: Female, 46 years old. Abnormal uterine bleeding LMP: 1 year ago. TECHNIQUE: Transabdominal and Transvaginal TECHNICAL QUALITY: Adequate. COMPARISON: None. FINDINGS: The uterus is anteverted and is in a midline position. The uterus measures 10.2 cm x 5 cm x 5.9 cm. There is a Nabothian cyst of the cervix. The endometrium is thickened and measures 4.7 mm in thickness, and is hyperechoic. There is no demonstrated endometrial mass. Heterogeneous appearance of the myometrium although no focal fibroid is seen. This most likely represents fibroid change. There is no demonstrated myometrial mass. I.U.D. - The patient does not have an I.U.D. The right ovary is visualized. The right ovary measures 3.6 cm x 2.5 cm x 1.6 cm. There is no right ovarian cyst or ovarian mass. There is no visualized right adnexal mass or complex lesion. There is normal arterial and normal venous vascularity. The left ovary is visualized. The left ovary measures 2.8 cm x 1.8 cm x 2.0 cm. There is no left ovarian cyst or ovarian mass. There is no visualized left adnexal mass or complex lesion. There is normal arterial and normal venous vascularity. There is no fluid in the cul-de-sac. The pre void volume of the bladder was 417 ml. US/Pelvic (Non ) IMPRESSION: Heterogeneous appearance of the myometrium although no focal fibroid is seen. Endometrial thickening. Electronically Signed: Amarjit Patel MD at 14:18 EDT Reading Location ID and State: [facility] / [place] , Service support , CC: NOLA Estrada; Dr. Nancy Lucas DO Power Machine Operator: Signed Nancy Lucas DO Work Phone: Start: 01-14-2022 End: 01-14-2022 Transvaginal Non- Comments: See Note; NOTES: [facility] Imaging Services [address] [place] [address] Transvaginal Non- MR#: [id number] Acct: [id number] Name: LATIA MOODY Rep #: [id number] : 1975 F 46 From: Amarjit garcia MD PCP: Dr. Nancy Lucas DO Status: REG CLI Study: Transvaginal Non- Date of Exam: Exam# [id number] Ordering Dr: NatalieAnnie valle NP, NP STUDY: ULTRASOUND OF THE FEMALE PELVIS - COMPLETE REASON FOR EXAM: Female, 46 years old. Abnormal uterine bleeding LMP: 1 year ago. TECHNIQUE: Transabdominal and Transvaginal TECHNICAL QUALITY: Adequate. COMPARISON: None. FINDINGS: The uterus is anteverted and is in a midline position. The uterus measures 10.2 cm x 5 cm x 5.9 cm. There is a Nabothian cyst of the cervix. The endometrium is thickened and measures 4.7 mm in thickness, and is hyperechoic. There is no demonstrated endometrial mass. Heterogeneous appearance of the myometrium although no focal fibroid is seen. This most likely represents fibroid change. There is no demonstrated myometrial mass. I.U.D. - The patient does not have an I.U.D. The right ovary is visualized. The right ovary measures 3.6 cm x 2.5 cm x 1.6 cm. There is no right ovarian cyst or ovarian mass. There is no visualized right adnexal mass or complex lesion. There is normal arterial and normal venous vascularity. The left ovary is visualized. The left ovary measures 2.8 cm x 1.8 cm x 2.0 cm. There is no left ovarian cyst or ovarian mass. There is no visualized left adnexal mass or complex lesion. There is normal arterial and normal venous vascularity. There is no fluid in the cul-de-sac. The pre void volume of the bladder was 417 ml. US/Transvaginal Non- IMPRESSION: Heterogeneous appearance of the myometrium although no focal fibroid is seen. Endometrial thickening. Electronically Signed: Amarjit Patel MD at 14:18 EDT , CC: NOLA Estrada; Dr. Nancy Lucas DO Power Machine Operator: Signed Nancy Lucas DO Work Phone: Start: 01-07-2022 End: 01-07-2022 Chip Drier Office Visit Report Comments: See Note; NOTES: [facility] [address] [place] [address] OFFICE VISIT Date of Service: 01/07/22 MR#: [id number] Acct: [id number] Name: LATIA MOODY Rep #: [id number] : 1975 Provider: NOLA aguiar Age/Sex: 46/F [place] [facility] [place]: Signed Intake Vital Signs 01/07/22 08:53 01/07/22 08:54 Height 5 ft 2 in 5 ft 2 in Weight: 210 lb BMI 38.4 BP 118/64 Intake Visit Reasons: EMB Chief Complaint: EMB Hadoop Developer Required: No Is patient in pain?: No Allergies codeine Adverse Reaction (Severe, Verified 01/07/22 09:00) itchy, nausea Medications omeprazole 40 mg capsule,delayed release 40 mg PO QHS #90 caps 03/17/19 [History Confirmed 01/07/22] fexofenadine 180 mg tablet 10 mg PO DAILY ALLERGIES 03/12/20 [History Confirmed 01/07/22] albuterol sulfate 90 mcg/actuation aerosol inhaler 2 puff IH Q4H PRN SHORTNESS OF BREATH ##1 03/14/20 [Rx Confirmed 01/07/22] Cholecalciferol (Vitamin D3) [Vitamin D3] 25 mcg PO DAILY 06/21/20 [History Confirmed 01/07/22] ascorbic acid 1,000 kr-oimexmaehoai-fcjfwkvs powder effervescent pack 1,000 mg PO DAILY 06/21/20 [History Confirmed 01/07/22] calcium carbonate 500 mg calcium (1,250 mg) tablet 1,000 mg PO DAILY 06/21/20 [History Confirmed 01/07/22] fluticasone propionate 50 mcg/actuation nasal spray,suspension 2 spray NASAL DAILY 06/21/20 [History Confirmed 01/07/22] magnesium oxide 400 mg PO DAILY 06/21/20 [History Confirmed 01/07/22] zinc gluconate 30 mg tablet 15 mg PO DAILY 06/21/20 [History Confirmed 01/07/22] duloxetine 30 mg capsule,delayed release 30 mg PO DAILY 08/13/21 [History Confirmed 01/07/22] meloxicam 15 mg tablet 15 mg PO DAILY 08/13/21 [History Confirmed 01/07/22] cetirizine 10 mg tablet (Zyrtec) 10 mg PO DAILY 12/25/21 [History Confirmed 01/07/22] Is last menstrual period known: No Post menopausal: No Patient : No : No PFSH PFSH Medical History Acid reflux Anemia Arthritis Asthma Blurred vision Cancer COVID-19 Fibromyalgia Former smoker Gastric reflux Gastroenteritis GERD (gastroesophageal reflux disease) History of edema Hx of basal cell carcinoma Injury of back Injury of head and neck Low back pain Mouth sores Neuropathy Pneumonia due to COVID-19 virus RLS (restless legs syndrome) Shortness of breath at rest Sleep disorder Syncope Unspecified asthma with (acute) exacerbation Vomiting and diarrhea Wears glasses Surgical History H/O rhinoplasty History of delivery Hx of cholecystectomy Hx of knee surgery Hx of surgical procedure Social History household members: spouse current occupational status: unemployed Smoking Status: Former smoker alcohol intake: never substance use type: does not use diet: other what type of physical activity do you participate in: walking and yoga frequency: daily seatbelt use: always do you feel safe at home: Yes additional social history: - [place] History 5 Elective abortions Hx Para Spontaneous abortions 2 Hx # Term Pregnancies Ectopic pregnancies Hx # Pregnancies Multiple births # of living children 5 Past Pregnancies Del. Date Name GA/Weeks Outcome Route Bth Weight Infant Gen Labor Lgth Anesthesia Del Locatn Provider FOB Unknown Jeri 1989 Unknown Diana 1992 Unknown Regine 1995 Unknown Consuelo 1998 Unknown Sohail 1998 HPI EMB Details: LATIA MOODY is a 46 year old who presents for endometrial biopsy. Office Procedures Endometrial Biopsy Endometrial Biopsy Test: Yes Negative Consent Signed: Yes Time out checklist: patient, procedure, site marked/identified, positioning of patient, supplies available, allergies confirmed and team agrees on procedure Time out time: 09:00 tenaculum used: Yes dilator used: No Details: Cervix prepped with betadine and pipelle inserted into uterus without complication. Specimen obtained and sent to lab for analysis. All instruments removed from vagina without complications. Excellent hemostasis noted. Results POC Urine Office , Urine Negative Last Edit by Gauri Shaw on 01/07/22 08:58 Coding Level of Care Code Attention Jens Diagnoses DUB (dysfunctional uterine bleeding) N93.8 CPT Codes Endometrial Biopsy (30520) Assessment and Plan Assessment and Plan (1) DUB (dysfunctional uterine bleeding): Status: Acute Comment: EMB pending Hx of pellet estrogen/progesterone oral per another provider Orders: Orders POC Urine Today N93.9 - Abnormal uterine and vaginal bleeding, unspecified Endometrial Biopsy Today Plan Reviewed S S infection Call results if normal EMB and no bleeding X 3 months, provera challenge 01/07/22 0908 <Electronically signed by Annie VACA> Date Annie VACA Cosigner Signature: Date (if applicable) CC: Nancy Lucas DO Work Phone: Start: 12-16-2021 End: 12-16-2021 Chip Drier Office Visit Report Comments: See Note; NOTES: [facility] [address] [place] [address]. [address] [place] [address] OFFICE VISIT Date of Service: 12/16/21 MR#: [id number] Acct: [id number] Name: LATIA MOODY Rep #: [id number] : 1975 Provider: NOLA aguiar Age/Sex: 46/F [place] [facility] [place]: Signed Intake Vital Signs 12/16/21 12:57 12/16/21 13:00 Height 5 ft 2 in 5 ft 2 in Weight: 209 lb BMI 38.2 BP 132/78 H Intake Visit Reasons: 1 MO MED CHECK Allergies codeine Adverse Reaction (Severe, Verified 12/16/21 12:57) itchy, nausea Medications omeprazole 40 mg capsule,delayed release 40 mg PO QHS #90 caps 03/17/19 [History Confirmed 12/16/21] fexofenadine 180 mg tablet 10 mg PO DAILY ALLERGIES 03/12/20 [History Confirmed 12/16/21] albuterol sulfate 90 mcg/actuation aerosol inhaler 2 puff IH Q4H PRN SHORTNESS OF BREATH ##1 03/14/20 [Rx Confirmed 12/16/21] Cholecalciferol (Vitamin D3) [Vitamin D3] 25 mcg PO DAILY 06/21/20 [History Confirmed 12/16/21] ascorbic acid 1,000 ag-znblppbguhil-ysohkard powder effervescent pack 1,000 mg PO DAILY 06/21/20 [History Confirmed 12/16/21] calcium carbonate 500 mg calcium (1,250 mg) tablet 1,000 mg PO DAILY 06/21/20 [History Confirmed 12/16/21] fluticasone propionate 50 mcg/actuation nasal spray,suspension 2 spray NASAL DAILY 06/21/20 [History Confirmed 12/16/21] magnesium oxide 400 mg PO DAILY 06/21/20 [History Confirmed 12/16/21] zinc gluconate 30 mg tablet 15 mg PO DAILY 06/21/20 [History Confirmed 12/16/21] duloxetine 30 mg capsule,delayed release 30 mg PO DAILY 08/13/21 [History Confirmed 12/16/21] meloxicam 15 mg tablet 15 mg PO DAILY 08/13/21 [History Confirmed 12/16/21] medroxyprogesterone 10 mg tablet 10 mg PO QDAY 10 days #10 tabs 12/16/21 [Rx Confirmed 12/16/21] Post menopausal: Yes PFSH Medical History Acid reflux Blurred vision COVID-19 Fibromyalgia Gastroenteritis GERD (gastroesophageal reflux disease) Hx of basal cell carcinoma Low back pain Mouth sores Neuropathy Pneumonia due to COVID-19 virus RLS (restless legs syndrome) Shortness of breath at rest Sleep disorder Unspecified asthma with (acute) exacerbation Vomiting and diarrhea Surgical History H/O rhinoplasty History of delivery Hx of cholecystectomy Social History household members: spouse current occupational status: unemployed Smoking Status: Former smoker alcohol intake: never substance use type: does not use diet: other what type of physical activity do you participate in: walking and yoga frequency: daily seatbelt use: always do you feel safe at home: Yes additional social history: - [place] HPI 1 MO MED CHECK Details: LATIA MOODY is a 46 year old who presents for 4 week follow up start estradiol patch and daily prometrium. States has had a headaches every day since starting. She also had a full 5 day menses last week. She wants to stop the medications and deal with hot flashes. Pregancy History 5 Elective abortions Hx Para Spontaneous abortions 2 Hx # Term Pregnancies Ectopic pregnancies Hx # Pregnancies Multiple births # of living children 5 Past Pregnancies Del. Date Name GA/Weeks Outcome Route Bth Weight Infant Gen Labor Lgth Anesthesia Del Locatn Provider FOB Unknown Jeri 1989 Unknown Diana 1992 Unknown Regine 1995 Unknown Consuelo 1998 Unknown Sohail 1998 ROS Const Constitutional: Reports system reviewed and no additional complaints, except as documented Eyes Eyes: Reports system reviewed and no additional complaints, except as documented GI GI: Denies abdominal pain or change in bowel habits : Reports as per HPI Exam Const General: cooperative and no acute distress Orientation: oriented x3 HENMT Head: normal to inspection and normocephalic Eyes General: appearance normal, both eyes and all related structures Neck Neck: normal visual inspection Resp Effort Inspection: normal respiratory effort Neuro Cognition: normal cognition Speech: speech normal Psych Appearance: grossly normal Mood: congruent mood Affect: normal affect Speech and Movement: speech and movement normal Attitude: cooperative Judgment: judgment good Coding Level of Care Code Off vis,est,level 2 Diagnoses Climacteric N95.1 Assessment and Plan Assessment and Plan (1) Climacteric: Status: Acute Comment: declines intervention at this time Medications: New medroxyprogesterone 10 mg PO QDAY 10 days 10 tabs 0RF Discontinued progesterone micronized (Prometrium) Discontinued Reason: Order Completed 100 mg PO QHS 30 caps 1RF estradiol apply 1 patch for 3 days alternating with 1 patch for 4 days each week Discontinued Reason: Order Completed 1 patch transdermal 2XW 8 ea 1RF Plan Finished Rx for estrogen patch and prometrium last night. She will monitor hot flashes and notify me if again become problematic. Her cymbalta is for joint pain and would decline change to effexor She will call if she has another spontaneous menses but also given Rx for provera challenge first week of February. RTO prn, annual exam. 12/16/21 1314 <Electronically signed by Annie Estrada NP, NP-C> Date Annie Estrada NP, NP-C Cosigner Signature: Date (if applicable) CC: Nancy Lucas DO Work Phone: Start: 12-16-2021 End: 12-16-2021 SCRN MAMM (CAD)W/BARON BILAT Comments: See Note; NOTES: [facility] Services [address] [place] [id number] SCRN MAMM (CAD)W/BARON BILAT MR#: [id number] Acct: [id number] Name: LATIA MOODY Rep #: [id number] : 1975 F 46 From: Michael Kearns DO PCP: Dr. Nancy Lucas, DO Status: [facility] CLI Study: SCRN MAMM (CAD)W/BARON BILAT Date of Exam: 12/02 09/22 Exam# [id number] Ordering Dr: Annie Estrada NP PREPRESS PROOFER -C MAMMOGRAPHY - BILATERAL SCREENING REASON FOR EXAM: Female, 46 years old. Routine annual screening examination. PERTINENT HISTORY: Non-contributory. TECHNIQUE: Digital bilateral breast baron (3D mammographic acquisition) in the CC and MLO projections. 2-D mediolateral oblique (MLO) and craniocaudad (CC) views of both breasts were obtained. CAD: Full Field Digital Mammography with Computer Added Detection was performed. COMPARISON: Comparison mammogram from 01/12/2014. FINDINGS: Breast Composition: There are scattered areas of fibroglandular density. There are no dominant masses or suspicious calcifications. No other significant abnormalities are identified. There has been no significant change since the prior study. BI/SCRN MAMM (CAD)W/BARON BILAT IMPRESSION: Stable bilateral screening mammogram. Yearly follow-up mammogram recommended. (A) ASSESSMENT CATEGORY: BIRADS Category 1: Negative. A letter regarding these results will be sent to the patient by the facility within 30 days. Approximately 10% of breast cancers are not detected by mammography. A normal mammogram should not delay biopsy of a clinically suspicious abnormality. Electronically Signed: Michael Kearns, at 16:33 EDT Reading Location ID and State: [facility] / [place] Tel , Service support , CC: NOLA Estrada; Dr. Nancy Lucas DO Power Machine Operator: Signed Nancy Lucas DO Work Phone: Start: 11-20-2021 End: 11-20-2021 Chip Drier Office Visit Report Comments: See Note; NOTES: [facility] [address] [place], [place] [address]livan. [address] [place], [place] [address] OFFICE VISIT Date of Service: 11/20/21 MR#: [id number] Acct: [id number] Name: LATIA MOODY Rep #: [id number] : 1975 Provider: NOLA aguiar Age/Sex: 46/F [place] [facility] [place]: Signed Intake Vital Signs 06/21/20 04:56 09/26/21 16:06 11/20/21 14:42 Height 5 ft 2 in 5 ft 2 in 5 ft 2 in Weight: 207 lb 210 lb BMI 37.8 38.4 BP 119/84 H 114/76 Blood Pressure Location Lt radial Position Sitting Pulse 72 Pulse Oximetry (%) 97 Oxygen Delivery Method room air Intake Visit Reasons: Annual (HIDE DROPPER) Allergies codeine Adverse Reaction (Severe, Verified 11/20/21 14:44) itchy, nausea Medications omeprazole 40 mg capsule,delayed release 40 mg PO QHS #90 caps 03/17/19 [History Confirmed 11/20/21] fexofenadine 180 mg tablet 10 mg PO DAILY ALLERGIES 03/12/20 [History Confirmed 11/20/21] albuterol sulfate 90 mcg/actuation aerosol inhaler 2 puff IH Q4H PRN SHORTNESS OF BREATH ##1 03/14/20 [Rx Confirmed 11/20/21] Cholecalciferol (Vitamin D3) [Vitamin D3] 25 mcg PO DAILY 06/21/20 [History Confirmed 11/20/21] ascorbic acid 1,000 dp-pspmccqoolbl-vafjhiqy powder effervescent pack 1,000 mg PO DAILY 06/21/20 [History Confirmed 11/20/21] calcium carbonate 500 mg calcium (1,250 mg) tablet 1,000 mg PO DAILY 06/21/20 [History Confirmed 11/20/21] fluticasone propionate 50 mcg/actuation nasal spray,suspension 2 spray NASAL DAILY 06/21/20 [History Confirmed 11/20/21] magnesium oxide 400 mg PO DAILY 06/21/20 [History Confirmed 11/20/21] zinc gluconate 30 mg tablet 15 mg PO DAILY 06/21/20 [History Confirmed 11/20/21] duloxetine 30 mg capsule,delayed release 30 mg PO DAILY 08/13/21 [History Confirmed 11/20/21] meloxicam 15 mg tablet 15 mg PO DAILY 08/13/21 [History Confirmed 11/20/21] estradiol 0.05 mg/24 hr semiweekly transdermal patch 1 patch transdermal 2XW #8 ea 11/20/21 [Rx Confirmed 11/20/21] progesterone micronized 100 mg capsule (Prometrium) 100 mg PO QHS #30 caps 11/20/21 [Rx Confirmed 11/20/21] Post menopausal: Yes Nurse's Note: last menses 1+ year ago PFSH Medical History (Updated 11/20/21 @ 15:38 by Annie Estrada PREPRESS PROOFER, PREPRESS PROOFER-C) Acid reflux Blurred vision COVID-19 Fibromyalgia Gastroenteritis GERD (gastroesophageal reflux disease) Hx of basal cell carcinoma Low back pain Mouth sores Neuropathy Pneumonia due to COVID-19 virus RLS (restless legs syndrome) Shortness of breath at rest Sleep disorder Unspecified asthma with (acute) exacerbation Vomiting and diarrhea Surgical History H/O rhinoplasty History of delivery Hx of cholecystectomy Social History (Updated 11/20/21 @ 14:47 by Temitope Lopez) household members: spouse current occupational status: unemployed Smoking Status: Former smoker alcohol intake: never substance use type: does not use diet: other what type of physical activity do you participate in: walking and yoga frequency: daily seatbelt use: always do you feel safe at home: Yes additional social history: - [place] Pregancy History 5 Elective abortions Hx Para Spontaneous abortions 2 Hx # Term Pregnancies Ectopic pregnancies Hx # Pregnancies Multiple births # of living children 5 Past Pregnancies Del. Date Name GA/Weeks Outcome Route Bth Weight Gen Labor Lgth Anesthesia Del Locatn Provider FOB Unknown Ejri 1989 Unknown Diana 1992 Unknown Regine 1995 Unknown Consuelo 1998 Unknown Sohail 1998 HPI Encounter for routine gynecological examination Details: LATIA MOODY is a 46 year old who presents for new patient annual exam. Last exam >5 year ago in [place]. Denies concerns. No menses X 1 year. Significant hot flashes, disrupts sleep. Black cohash not helpful. Last PAP: >5 yr History of abnormal PAP: no Last mammogram: 2013? History of abnormal mammogram: no Colon cancer screening: scheduled December 2021 Other preventative health care screenings: Lance ROS Const Constitutional: Denies fatigue, weight gain or weight loss Cardio Card: Denies chest pain Resp Resp: Denies cough or dyspnea on exertion GI GI: Denies abdominal pain, bloating, change in stool character, constipation or vomiting : Reports as per HPI; Denies difficulty voiding, pelvic pain, urinary frequency, urinary incontinence, urinary urgency, vaginal discharge or vaginal pruritus Exam Const General: cooperative, healthy appearing, no acute distress and well developed Orientation: alert, oriented to person and oriented to place [facility] Head: normal to inspection Neck Neck: normal visual inspection Thyroid: thyroid normal Lymphatic: no lymphadenopathy noted Chest Breast inspection: normal inspection of the breasts and normal inspection of the axillae Breast palpation: normal palpation of the breasts, normal palpation of the axillae and no axillary lymphadenopathy Resp Effort Inspection: normal respiratory effort GI Palpation: soft, no masses and nontender Rectal Exam: deferred External Female Exam: normal external appearance and normal appearance of the urethra Urethra: normal appearance of the urethra and normal palpation Speculum Exam - Vagina: normal appearance of the vagina and normal vaginal discharge Speculum Exam - Cervix: normal appearance of the cervix Bimanual Exam- Vagina Uterus: normal bimanual exam, uterine size normal, uterine shape normal and non-tender Bimanual Exam- Adnexa, other: normal adnexae, no masses, normal and non-tender Pelvic Support: normal Neuro General: patient alert and patient oriented x3 Psych Affect: normal affect Coding Level of Care Code Off vis,new,prev 40-64yrs Diagnoses Encounter for routine gynecological examination Z01.419 Climacteric N95.1 Assessment and Plan Assessment and Plan (1) Encounter for routine gynecological examination: (2) Climacteric: Status: Acute Comment: HRT Orders: Orders SCRN MAMM (CAD)W/BARON BILAT Today PAP IG HPV APTIMA 16/18,45 Today Medications: New estradiol apply 1 patch for 3 days alternating with 1 patch for 4 days each week 1 patch transdermal 2XW 8 ea 1RF progesterone micronized (Prometrium) 100 mg PO QHS 30 caps 1RF Plan Completed breast and pelvic exam Reviewed diet and exercise Pap thin prep pap with HPV Mammogram ordered breast self exam encouraged monthly Discussed use, benefits, risks and side effects of estrogen and progesterone replacement. Margot holland with po prometrium RX sent Colonoscopy scheduled December 2021 RTO 4 weeks Annie Estrada SUPERVISOR QUALITY CONTROL 11/20/21 6879 <Electronically signed by Annie Estrada PREPRESS PROOFER PREPRESS PROOFER-C> Date Annie Goodell PREPRESS PROOFER PREPRESS PROOFER-C Cosigner Signature: Date (if applicable) CC: Nancy Lucas DO Work Phone: Start: 10-01-2021 End: 10-01-2021 Ankle min 3 Views Comments: See Note; NOTES: [facility] [address] [address] Ankle min 3 Views MR#: [id number] Acct: [id number] Name: LATIA MOODY Rep #: [id number] : 1975 F 46 From: Torrey Washington MD PCP: Dr. Nancy Lucas DO Status: REG CLI Study: Ankle min 3 Views Date of Exam: 10/01/21 Exam# [id number] Ordering Dr: Micki Garcia DO STUDY: X-RAY - LEFT ANKLE REASON FOR EXAM: Female, 46 years old. PAIN TECHNIQUE: 3 view(s) of the ankle. COMPARISON: 04/19/2019 FINDINGS: Normal visualized distal tibia and fibula. Normal medial and lateral malleoli. Mild degenerative changes of the tibiotalar articulation. Normal visualized talus and calcaneus. The visualized subtalar, talonavicular, calcaneocuboid and tarsal articulations are normal. Lateral ankle soft tissue swelling. RAD/Ankle min 3 Views IMPRESSION: No acute fracture or malalignment. Lateral ankle soft tissue swelling. Electronically Signed: Torrey Washington MD ([place]) at 16:05 EDT Reading Location ID and State: [facility] / [place] , Service support , CC: Dr. Micki Garcia DO; Dr. Nancy Lucas DO Power Machine Operator: Signed Micki Garcia DO Work Phone: Start: 09-26-2021 End: 09-26-2021 Gastroenterology Visit Report Comments: See Note; NOTES: [facility] [address] [place] [address] OFFICE VISIT Date of Service: 09/26/21 MR#: [id number] Acct: [id number] Name: LATIA MOODY Rep #: [id number] : 1975 Provider: NOLA Tillman Age/Sex: 46/F [place] [facility] [place] Status: Signed Intake Vital Signs 09/26/21 16:06 Height 5 ft 2 in Weight: 207 lb BMI 37.8 BP 119/84 H Blood Pressure Location Lt radial Position Sitting Pulse 72 Pulse Oximetry (%) 97 Oxygen Delivery Method room air Intake Visit Reasons: ACID REFLUX Allergies codeine Adverse Reaction (Severe, Verified 09/26/21 16:04) itchy, nausea Medications omeprazole 40 mg capsule,delayed release 40 mg PO QHS #90 cap 03/17/19 [History Confirmed 08/13/21] fexofenadine 10 mg PO DAILY 03/12/20 [History Confirmed 09/26/21] albuterol sulfate 2 puff IH Q4H PRN #1 inhaler 03/14/20 [Rx Confirmed 09/26/21] aspirin 81 mg PO DAILY@0800 #14 tab.chew 03/14/20 [Rx Confirmed 09/26/21] Cholecalciferol (Vitamin D3) [Vitamin D3] 25 mcg PO DAILY 06/21/20 [History Confirmed 09/26/21] ascorbic fzld-alrofwio-msa 1,000 mg PO DAILY 06/21/20 [History Confirmed 09/26/21] calcium carbonate 1,000 mg PO DAILY 06/21/20 [History Confirmed 09/26/21] fluticasone propionate 2 spray NASAL DAILY 06/21/20 [History Confirmed 09/26/21] magnesium oxide 400 mg PO DAILY 06/21/20 [History Confirmed 09/26/21] zinc gluconate 15 mg PO DAILY 06/21/20 [History Confirmed 09/26/21] duloxetine 30 mg capsule,delayed release 30 mg PO DAILY 08/13/21 [History Confirmed 08/13/21] meloxicam 15 mg tablet 15 mg PO DAILY 08/13/21 [History Confirmed 08/13/21] [facility] Medical History (Updated 09/26/21 @ 16:29 by Meera Tillman PREPRESS PROOFER, PREPRESS PROOFER-C) Acid reflux Blurred vision Fibromyalgia Gastroenteritis GERD (gastroesophageal reflux disease) Hx of basal cell carcinoma Low back pain Mouth sores Neuropathy RLS (restless legs syndrome) Shortness of breath at rest Sleep disorder Unspecified asthma with (acute) exacerbation Vomiting and diarrhea Surgical History H/O rhinoplasty History of delivery Hx of cholecystectomy Social History Smoking Status: Former smoker alcohol intake: never substance use type: does not use HPI HPI Details: LATIA MOODY, is a 46 F who presents to the office today for needs to schedule EGD. She has been on medication since the age of 14 for GERD. She previously took Nexium, now is on omeprazole 40 mg daily. [facility] did an Esoguard test for Polanco's esophagus, the test was inconclusive. If she eats late then she might need gaviscon at , but typically omeprazole 40 mg daily is effective. She had colonoscopy 5-7 years ago for blood in stool, unremarkable. Had EGD then too. No history of Polanco's. High protein and vegetable diet, has lost 40 lbs in the past year. Tends to be a bit constipated but no discomfort. No melena or hematochezia. No nausea, vomiting, dysphagia. No abdominal pain Comorbidities include fibromyalgia, history of basal cell carcinoma on her nose, restless leg syndrome, asthma, history cholecystectomy, rheumatoid arthritis ROS Const Constitutional: No fatigue ENT ENT: No difficulty swallowing Cardio Cardiology: Positive for leg pain with exertion Gastro GI: Positive for bloating, heartburn and excessive flatus; No abdominal pain, belching, change in bowel habits, change in stool character, coffee ground emesis, constipation, cramping, diarrhea, difficulty swallowing, feeling full early, incontinent of stools, Vomiting blood/hematemesis, Blood in stool, loose stools, Black,tarry stools, nausea/dyspepsia, pain with swallowing, vomiting or other Musc Musculoskeletal: Positive for joint pain, back pain, muscle cramps, muscle weakness, stiffness, Arthritis, restless legs and leg pain with exertion Skin Skin: No yellowing of the eye or itchy eyes Neuro Neurology: Positive for restless legs Psych Psychiatric: No anxiety and No depression Endo Endocrine: No fatigue Aller/Imm Allergy/Immunologic: No itchy eyes Fabrice/Lymp Hematologic/Lymphatic: Positive for easy bruising; No easy bleeding Exam Const General: cooperative, comfortable, well developed and well groomed Nutritional Appearance: obese Eyes General: appearance normal, both eyes and all related structures Resp Effort Inspection: normal respiratory effort Quality Reporting Tobacco Screening ([facility] 138) Smoking Status: Former smoker Assessment and Plan Assessment and Plan (1) GERD (gastroesophageal reflux disease): Status: Acute Plan - Meera Tillman PREPRESS PROOFER, PREPRESS PROOFER-C: 46 yr old female with long hx of GERD, well controlled with PPI. Recent EsoGuard test was indeterminate. We will schedule her for EGD w/ f/u 2 wks later. She declines screening colonoscopy at this time. Coding Level of Care Code Off vis,new,level 3 Diagnoses GERD (gastroesophageal reflux disease) K21.9 09/26/21 1714 <Electronically signed by Meera Tillman PREPRESS PROOFER PREPRESS PROOFER-C> Date Meera Tillman NP PREPRESS PROOFER-C Cosigner Signature: Date (if applicable) CC: Dr. Nancy Lucas, DO Nancy Lucas DO Work Phone: Start: 04-29-2021 End: 04-29-2021 PT D/C Summary (1) Comments: See Note; NOTES: [facility] Physical Therapy Health[address] [place] [address] / REHABILITATION SERVICES DISCHARGE SUMMARY MR#: [id number] Acct: [id number] Name: LATIA MOODY Rep #: [id number] : 1975 45 From: Kelin Wade PT, Cert. MDT Referring Dr.: Dr. Henrique Mccabe MD Status: REG RCR Insurance: [employer] SELF PAY INSURANCE It has been my pleasure to treat LATIA MOODY referred by Dr. Henrique Mccabe MD, with the diagnosis of BACK PAIN for a total of 11 visit(s). Discharge Date: 04/29/21 Please see the following information for a summary of their discharge status. Subjective: PATIENT REPORTS SHE IS READY TO CONTINUE ON HER OWN BECAUSE NOW SHE KNOWS WHAT SHE HAS BEEN DOING WRONG FOR 20 YEARS. STATES SHE FEELS COMFORTABLE JOINING A GYM AND PROGRSSING SAFELY ON HER OWN NOW WITH THE INSTRUCTIONS SHE HAS RECEIVED HERE. PATIENT REPORT SHE IS EXCITED ABOUT WHERE SHE IS AT. PATIENT REPORTS SHE ENJOYS HOW SHE FEELS IN THE EVENING AFTER SHE DOES HER EX'S AND SHE SLEEPS BETTER. PATIENT REPORTS BEING HAPPY THAT SHE WAS ABLE TO KEEP UP WITH HER DAUGHTER AND HER 20 YEAR OLD FRIENDS SHOPPING RECENTLY. PATIENT RELATES HER CURRENT PAIN TO ARTHRITIS. STATES SHE DOES NOT EXPECT NOT TO HURT BECAUSE SHE THINKS THAT IS REALISTIC BUT HER FUNCTION HAS IMPROVED AND SHE HAS GOT OUT OF THERAPY WHAT SHE WANTED TO. LEFT LOW BACK Pain Intensity (Out of 10): 2 % Improvement: 70 Objective/Function: PATIENT WAS SEEN TODAY FOR RE-ASSESSMENT OF PROGRESS TOWARD THE SET PT GOALS AND THE NEED FOR FURTHER PHYSICAL THERAPY VS READINESS FOR DISCHARGE. ALL GOALS MET. PATIENT IS NOT PAINFREE BUT SHE IS INDEP WITH A HEP AND HER FUNCTION IS INCREASING. UPON EXAM TODAY: Motor deficit: MABEL LE'S GROSSLY 5/5 WITH MMT'ING EXCEPT HIPS GRADED 4/5. Sensory deficit: MABEL LE LIGHT TOUCH SENSATION IS GROSSLY INTACT AND SYMMETRICAL. ROM deficit: TIGHT MABEL GASTROC SOLEUS COMPLEX'S. Dural Signs: NEGATIVE RIGHT LE BUT RIGHT NECK CRAMP WITH TESTING THAT SUBSIDED AFTER A FEW MINUTES. POSITIVE LLE DURAL TEST. Lumbar mvmt loss: flex - NIL. ext - MIN - MILD CENTRAL LBP. R SG - MIN - MILD INCREASE LBP. L SG - MIN - MILD INCREASE LBP. Core strength: POOR. Palpation: MILD TENDERNESS WITH PALPATION OF THE LEFT LOW BACK REGION. OTHER: REVIEWED ALL HOME INSTRUCTIONS AND ENCOURAGED CONTINUED CALF STRETCHING AND STRENGTHENING. Goal 1:: DECREASE C/O LOW BACK AND MABEL LE SX'S. Goal Progress: Goal Met Goal 2:: IMPROVE PERSONAL CARE, LIFTING, WALKING, STANDING, SLEEP, SOCIAL LIFE, TRAVEL AND HOMEMAKING FUNCTION. Goal Progress: Goal Met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 presents the ED for left flank pain. She is currently being treated for urinary tract infection. She has been having systemic symptoms with nausea as well as fever/chills. Basic lab work, urinalysis, blood cultures and lactic acid being obtained. She has been on ciprofloxacin. Will start on IV fluids as she is borderline tachycardic. Patient's work-up showed a mildly elevated white blood cell count. Urine shows possibility of infection but she has been on Cipro which should be treating this. CT scan did not show any evidence of obstructing stone or pyelonephritis. She otherwise has been stable throughout ED stay. Lactic within normal limits. I did offer hospitalization given the fact she does meet sepsis criteria. But patient is otherwise well-appearing and she does feel comfortable going home for outpatient treatment still. Will change antibiotic to Keflex and cultures have been obtained. We will contact her if blood cultures or urine culture comes back positive. Strict return precautions were discussed with her. She otherwise is to follow-up with her PCP. Will discharge home in stable condition at this time. ED Disposition - Plan for ED Patient: Disposition: Home or Assisted Living Diagnosis: Cystitis, Fever Instructions: ED Fever Control (Adult), ED CYSTITIS Female Adult Prescriptions: Cephalexin [Keflex] 500 mg PO BID 10 Days #20 cap Transmission Status: Received by [id number] Phenazopyridine [Pyridium] 100 mg PO TID PRN 4 Days #12 tab PRN Reason: Not Specified Transmission Status: Received by [facility][id number] Referrals: Nancy Lucas, [Primary Care Provider] - What to do if you have Problems For any increased pain, shortness of breath, bleeding, nausea or vomiting, chest pain, or any unexpected problems, contact your Primary Care Provider. Call [facility] ([phone]) or report to the closest Emergency Room. Call 911 if necessary. 01/27/202201 <Electronically signed by Amari Davis DO> Date Amari Davis DO Cosigner Signature (If Indicated): Date CC: DO Nancy Guy Start: 05-20-2019 End: 05-20-2019 Inital Evaluation (1) - PT Comments: See Note; NOTES: [facility] [address] [place] [address] / REHABILITATION SERVICES INITIAL EVALUATION MR#: [id number] Acct: [id number] Name: LATIA MOODY Rep #: [id number] : 1975 43 From: Abilio Killian DPT, OCS, CSCS Referring Dr.: Sarai Berumen DO Status: REG RCR Insurance: [facility] SELF PAY INSURANCE Patient's Visit Information LATIA MOODY is a 43 year old F referred to Physical Therapy by Sarai Berumen DO with a diagnosis of L high ankle sprain, talus bony edema. Date of Evaluation: 05/19/19 Physical Therapist: Abilio Killian DPT, KAITLIN, CSCS - Visit Plan Frequency: 1-2x /Week Duration: 4-6 Weeks Plan: 1-2x/week for 4-6 weeks... Initially weekly to progress HEP of today's ROM to strengthening next sessiona dn wean back to no boot walking. Pt to see foot doctor next week and orthotics should be considered. - Subjective Findings: Broken L ankle walking up and down steps 04/01/20. Did not twist it but it ust started hurting adn got worse. Checked out 10 days later at ER and did Xrays. Had MRI and Dr. berumen said she has 3 sprained tendons. Been in boot since early April for about 5 weeks. Will see specialist Dr. Borrego next week to see if surgery is appropriate. Has L torn RC. Can walk in boot pretty comfortably. Has not tried without it except to shower and it is OK. No exercises. Sleep is OK and no boot to sleep. 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 Spends day babysitting 2 yo grandson. Laundry is made tough in the boot. does it for now. does cooking adn cleaning slower. No active hobbies. No regular ex but did TM prior to this. No falls, no cane or walker. - Pain L foot Pain Intensity (Out of 10): 0 Pain Intensity Range: 0, 2 - Objective Boot on L foot doned and doffed I. Walks well with it without pain or antalgia. trasnfers I. AROM L ankle 4 DF, 55 PF without pain, inversion painful at 20 and to 33 overall, traction helps relieve pain. eversion 18 and not painful. R ankle aROM 3 DF, 55 PF, 35 inv adn 20 eversion. strength in L ankle 4- and r ankle 4+, no pain. Sensation LE WNL to gross light touch. Metatarsals moving well B. Big toe with full ROM and strength B without pain. Mild swelling B LE. Walks without boot 10 feet today without pain but very severe pes planus L>R. Can do heel raises UE asssited with mild pain today. - Goals Goal 1:: Full aROM L ankle without pain. Goal Time Frame: 2-4 Weeks Goal 2:: Pt walk community distances without AD I with good balance and no pain Goal Time Frame: 4-6 Weeks Goal 3:: Steps reciprocal with one rail Goal Time Frame: 4-6 Weeks Goal 4:: I approp HEP to minimize future problems Goal Time Frame: 4-6 Weeks Goal 5:: Pt feel 90% back to normal in L ankle Goal Time Frame: 4-6 Weeks - Rehabilitation Potential Physical Therapy Diagnosis: L ankel sprain. Rehabilitation Potential: Fair - Anticipated Interventions Patient/Client Instruction: Educate patient on: Condition, Plan of Care For the Purpose of:: To decrease pain, To improve muscle performance and motor function, To increase tolerance to activity/condition/position , To improve gait and locomotor functions, To improve safety Therapeutic Exercise to Include: Strength training, Flexibilty training, Gait and locomotor training, Passive ROM, Active ROM For the Purpose of:: To decrease pain, To improve muscle performance and motor function, To increase tolerance to activity/condition/position , To improve ability of physical actions for home/community/work/leisure , To improve gait and locomotor functions Manual Therapy Techniques to Include: Mobilization, Soft tissue mobilization For the Purpose of:: To increase ROM Thank you for the opportunity to evaluate your patient. For Medicare and Medicare HMO plans, please review the plan of care and approve it. It will need to be FAXED BACK to us at [phone] for Medicare purposes. For Medicare only, by signing this I certify the plan of care. Please let me know if there are questions or concerns regarding this plan of care. Physician Signature: Date: <Electronically signed by Abilio Killian DPT, OCS, CSCS> 05/20/19 0646 CC: Sarai Berumen DO; Nancy Lucas DO EBG Signed Nancy Lucas Start: 05-12-2019 End: 05-12-2019 Orthopedic Visit Report Comments: See Note; NOTES: [facility] [address] [place], [place] [id number] OFFICE VISIT Date of Service: 05/12/19 MR#: [id number] Acct: [id number] Name: LATIA MOODY Rep #: [id number] : 1975 Provider: Sarai Berumen DO Age/Sex: 43/F Location: [facility] Status: Signed Intake Vital Signs05/12/19 BMI 35.9 Intake Visit Reasons: left ankle Allergies codeine Adverse Reaction (Severe, Verified 04/19/19 14:10) itchy, nausea Medications abatacept 50 mg/0.4 mL subcutaneous syringe 1 unit SC QWEEK ml 03/17/19 [History Confirmed 05/12/19] duloxetine 60 mg capsule,delayed release 60 mg PO DAILY #90 cap 03/17/19 [History Confirmed 05/12/19] folic acid 1 mg tablet 1 mg PO DAILY #180 tab 03/17/19 [History Confirmed 05/12/19] gabapentin 300 mg capsule 300 mg PO 4X/DAY PRN PRN #120 cap 03/17/19 [History Confirmed 05/12/19] methotrexate sodium 2.5 mg tablet 7 tab PO QWEEK #24 tab 03/17/19 [History Confirmed 05/12/19] omeprazole 40 mg capsule,delayed release 40 mg PO DAILY #90 cap 03/17/19 [History Confirmed 05/12/19] peg 3350-electrolytes 236 gram-22.74 gram-6.74 gram-5.86 gram solution 1 drp OPHTHALMIC (EYE) DAILY #4000 03/17/19 [History Confirmed 05/12/19] PFSH Social History (Updated 05/12/19 @ 14:39 by Sarai Berumen DO) Smoking Status: Never smoker HPI left ankle: Details: Parts of this documentation were recorded by a scribe, this documentation accurately reflects the service provided and the decisions made by me, Sarai Berumen DO 05/12/19 1402. LATIA MOODY is a 43 year old F here today for F/U on left ankle fx since having her left ankle MRI. DOI: 03/29/19 Patient has been WBAT in CAM boot since she was last in our office. Patient states that she continue to have medial malleolus pain. Does have some swelling noted. Denies numbness, tingling or other associated symptoms. ROS Musc Reports joint pain, Reports joint swelling Skin/Breast Reports system reviewed and no additional complaints, except as docu Neuro Yes system reviewed and no additional complaints, except as docu Ortho Exam Left Foot/Ankle Skin: Yes Soft Tissue Swelling Exam: Yes Soft tissue swelling, TTP FX site and TTP Medial Malleolus; no eversion normal or inversion normal ROM: Yes pain with ROM Assessment AND Plan Problems 1. High ankle sprain of left lower extremity, subsequent encounter S93.432D 2. Bone bruise T14.8XXA 3. 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 Os trigonum Q68.8 Plan Personally reviewed the MRI and explained that she has a high ankle sprain, posterior mall avulsion, edema in the talus which is a bone bruise, she has inflammation around the lateral ankle ligaments with a os trigonum. Her treatment option is to follow up with foot and ankle specialist for either conservative treatment or surgical intervention. Patient elects to continue her current treatment in a boot and wean out as tolerated in two weeks to allow for more healing of the talus, did recommend Dr Barfield or [facility] as a follow up and custom orthotics and for second opinion for possible surgical intervention d/t patient history of RA and flat feet. Follow up as needed or sooner if pain, swelling, numbness or associated symptoms, or concerns develop. All questions answered. Patient in agreement of plan. 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 Laterality: left Os trigonum Q68.8 05/12/19 1439 <Electronically signed by Sarai Berumen DO> Date Sarai Berumen DO Cosigner Signature: Date (if applicable) CC: Nancy Lucas Start: 05-07-2019 End: 05-09-2019 Lower Ext Joint Only (Routine) Comments: See Note; NOTES: [facility] Imaging Services [address] [place] [address] Lower Ext Joint Only (Routine) MR#: [id number] Acct: [id number] Name: LATIA MOODY Rep #: [id number] : 1975 F 43 From: Sher Andres MD PCP: Lance DO,Nancy Status: REG CLI Study: Lower Ext Joint Only (Routine) Date of Exam: 05/07/19 Exam# [id number] Ordering Dr: Sarai Berumen DO STUDY: MRI LEFT ANKLE WITHOUT CONTRAST REASON FOR EXAM: Follow-up from ankle fracture in March. TECHNIQUE: Standardized fat and water weighted pulse sequences were obtained in all 3 orthogonal planes. COMPARISON: Radiographs 04/19/2019. FINDINGS: Normal subcutis adipose space. There is a very small volume of fluid in the proximal posterior tibialis and flexor digitorum longus tendon sheaths (T2 axial images 8-12). The posterior tibialis and flexor digitorum longus tendons are morphologically normal. Normal flexor hallucis longus tendon. There is a very small volume of fluid in the retromalleolar peroneal tendon sheath (T2 axial images 13-15). The peroneus longus and brevis tendons are morphologically normal. Normal tibialis anterior tendon. Normal extensor hallucis longus tendon. Normal extensor digitorum longus tendons. Normal Achilles tendon and teno-osseous insertion. Normal plantar fascia. Normal plantar calcaneal tubercles. Normal intrinsic muscles of the rearfoot. There is a mild sprain of the anterior tibiofibular ligament of the distal tibiofibular syndesmotic ligamentous complex (inversion recovery axial series 7 image 7). Normal posterior tibiofibular ligament. There is a small healing nondisplaced fracture of the posterior malleolus with mild residual bone edema (inversion recovery sagittal image 9). Normal lateral ligamentous complex. There is mild edema in the sinus tarsi (inversion recovery sagittal images 9, 10). Normal deltoid ligamentous complexes. Normal plantar calcaneonavicular (spring) ligament. There is an osteochondral lesion of the posterior medial talar dome (T1 sagittal image 7; T1 axial image 14) measuring approximately 0.8 x 0.3 cm (AP x transverse) with slight bone edema of the adjacent parent bone (T2 coronal image 14). There is a very small tibiotalar joint effusion (inversion recovery sagittal image 10). There is a bone contusion of the medial body of the talus (T2 coronal images 15-17). Normal subtalar articulations. There is an os trigonum. There is a talonavicular joint effusion (inversion recovery sagittal images 7-10). Normal calcaneocuboid articulation. Normal navicular-cuneiform articulations. MRI/Lower Ext Joint Only (Routine) IMPRESSION: Mild sprain of the anterior tibiofibular ligament. Small healing nondisplaced fracture of the posterior malleolus. Osteochondral lesion of the medial talar dome. Mild bone contusion of the medial body of the talus. Very mild posterior tibialis and flexor digitorum longus tenosynovitis. Very mild peroneal tenosynovitis. Mild edema in the sinus tarsi. Talonavicular and tibiotalar joint effusions. Electronically Signed: Sher Andres MD at 9:07 EST Tel , Service support , CC: Sarai Berumen DO; Nancy Lucas DO Power Machine Operator: Signed Nancy Lucas Start: 04-19-2019 End: 04-19-2019 Ankle min 3 Views Comments: See Note; NOTES: [facility] Imaging Services [address] [place] [id number] Ankle min 3 Views MR#: [id number] Acct: [id number] Name: LATIA MOODY Rep #: [id number] : 1975 F 43 From: Sher Andres MD PCP: Nancy Lucas DO Status: REG CLI Study: Ankle min 3 Views Date of Exam: 04/19/19 Exam# [id number] Ordering Dr: Sarai Berumen DO STUDY: X-RAY - LEFT ANKLE REASON FOR EXAM: Follow-up from injury one week ago. TECHNIQUE: 3 view(s) of the ankle. COMPARISON: Radiographs 04/12/2019. FINDINGS: There is mild deformity of the posterior malleolus suggestive of remote fracture and unchanged since the prior study. Normal medial and lateral malleoli. Normal tibiotalar articulation and ankle mortise. Normal visualized talus and calcaneus. There is an os trigonum. The visualized subtalar, talonavicular, calcaneocuboid and tarsal articulations are normal. There is pes planus deformity. RAD/Ankle min 3 Views IMPRESSION: No interval change of mild deformity of the posterior malleolus suggestive of remote fracture. Electronically Signed: Sher Andres MD at 15:06 EST Tel , Service support , CC: Sarai Bermuen DO; Nancy Lucas DO Power Machine Operator: Signed Nancy Lucas Start: 04-12-2019 End: 04-12-2019 Emergency Department Summary Comments: See Note; NOTES: [facility] Medical Records Department [address] [place] [address] Emergency Department Summary 04/12/192050 MR#: [id number] Acct: [id number] Name: LATIA MOODY Rep #: [id number] : 1975 43 From: Silverio Porter MD PCP: Nancy Lucas DO Status: DEP ER History of Present Illness Chief Complaint: Lower Extremity Injury Informant: Patient Onset: Weeks Context: Gradual Onset Timing: Continuous Current Severity: Moderate Maximum Severity: Moderate Narrative: The patient presents to the emergency department with left ankle injury. Patient states that she twisted her ankle the day after Thanksgiving when she was taking down decorations. She states that she would have some pain from time to time, but this weekend, the pain worsened. She states she is having a difficult time bearing weight. She denies other injury. She is otherwise been in her normal state of health. Prior similar symptoms: No Recent Illness/Hospitalization: No Past Medical History - Allergies and Home Meds Allergies/Adverse Reactions: Allergies codeine Adverse Reaction (Severe, Verified 04/12/19 20:33) itchy, nausea Primary Care Physician: Amari Fields DO [STAFF PHYSICIAN] - Prior records reviewed: Yes Past Medical History: - - Fibromyalgia, rheumatoid arthritis Surgical History: noncontributory Review of Systems General: Denies: Chills, Fever, Sweats Eyes: Denies: Visual changes - bilaterally, Diplopia ENT: Denies: Rhinorrhea, Sore throat Cardiovascular: Denies: Chest pain, Palpitations Respiratory: Denies: Dyspnea, Cough, Dyspnea on exertion Gastrointestinal: Denies: Abdominal pain, Nausea, Vomiting, Diarrhea, Melena, Hematochezia Genitourinary: Denies: Dysuria, Hematuria, Frequency Musculoskeletal: Denies: Back pain, Extremity Pain Skin: Denies: Rash, Wounds Neurological: Denies: Headache, Weakness, Numbness Physical Exam Vital Signs/Narrative: Vital Signs 04/12/19 20:33 97.0 F L 90 17 153/89 H 100 Inital Vital Signs reviewed: Yes General: Well nourished, Well developed, No Acute Distress Head: Normocephalic, Atraumatic Eyes: Perrl, EOMI ENT: Moist mucous membranes, No rhinorrhea Neck: Supple, Nontender Cardiovascular: Regular rate, Regular rhythm, No murmurs Respiratory: No distress, CTA bilaterally, Chest nontender Abdomen: Soft, Nontender, Nondistended, Normal bowel sounds Back: Nontender, Normal Inspection Extremities: No edema, Tenderness - Tenderness over the medial malleolus. Normal pulses. Zelaya test negative. Skin: Normal color, No rash Neurological: Alert, Oriented x3, Cranial nerves II-XII grossly intact, Normal Strength, Normal Sensation Psychological: Normal affect, Normal Mood Diagnostic/Tx/Re-eval Clinical Impression(s) from Imaging Studies Ankle X-Ray 04/12/19 20:49 IMPRESSION: Questionable fracture line through the posterior malleolus. Electronically Signed: Néstor Knight DO at 21:08 EST Tel [phone], Service support , - Medical Decision Making The patient presents to the emergency department with 3 weeks of persistent ankle pain. She has no gross laxity of the ankle. Her skin is intact. Her pulses are normal. Plain films were obtained. There is a questionable nondisplaced fracture of the posterior malleolus. It almost appears to be like an avulsion fracture. The patient will be treated with a boot orthosis. 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 She has been weightbearing for 3 weeks. I do feel that she can safely weight-bear and follow-up with orthopedics. She is comfortable with this plan of care. Impression 1. Nondisplaced medial malleolus fracture ED Disposition - Plan for ED Patient: Disposition: Home or Assisted Living Instructions: FRACTURE, Lower Extremity Prescriptions: Hydrocodone Bitart/Apap 5-325 [[place] 5MG-325MG] 1 tab PO Q6H PRN PRN 3 Days #10 tab PRN Reason: Pain Prescription Printed Referrals: Amari Fields DO [STAFF PHYSICIAN] - What to do if you have Problems For any increased pain, shortness of breath, bleeding, nausea or vomiting, chest pain, or any unexpected problems, contact your Primary Care Provider. Call [facility] ([phone]) or report to the closest Emergency Room. Call 911 if necessary. 04/12/192152 <Electronically signed by Silverio Porter MD> Date Silverio Porter MD Cosigner Signature (If Indicated): Date CC: Nancy Atwood Start: 04-12-2019 End: 04-12-2019 Ankle min 3 Views Comments: See Note; NOTES: [facility] Imaging Services [address] [place] [id number] Ankle min 3 Views MR#: [id number] Acct: [id number] Name: LATIA MOODY Rep #: [id number] : 1975 F 43 From: Néstor Knight DO PCP: Nancy Lucas DO Status: REG ER Study: Ankle min 3 Views Date of Exam: 04/12/19 Exam# [id number] Ordering Dr: Silverio Porter MD STUDY: X-RAY - LEFT ANKLE REASON FOR EXAM: Female, 43 years old. Pain TECHNIQUE: 3 view(s) of the ankle. COMPARISON: None. FINDINGS: Normal visualized distal tibia and fibula. Normal medial and lateral malleoli. Questionable fracture line through the posterior malleolus. Normal tibiotalar articulation and ankle mortise. Normal visualized talus and calcaneus. The visualized subtalar, talonavicular, calcaneocuboid and tarsal articulations are normal. Soft tissue edema. RAD/Ankle min 3 Views IMPRESSION: Questionable fracture line through the posterior malleolus. Electronically Signed: Néstor Knight DO at 21:08 EST Tel [phone], Service support , CC: Nancy Lucas DO; Silverio Porter MD Power Machine Operator: Signed Nancy Lucas Start: 03-28-2019 End: 03-28-2019 PT D/C Summary (1) Comments: See Note; NOTES: [facility] Physical Therapy [address] [place] [address] / REHABILITATION SERVICES DISCHARGE SUMMARY MR#: [id number] Acct: [id number] Name: LATIA MOODY Rep #: [id number] : 1975 43 From: Agustín Joseph PT, ATC Referring DrPepe: Sarai Berumen DO Status: REG RCR Insurance: [employer] INSURANCE HP - PT D/C Summary It has been my pleasure to treat LATIA MOODY under orders from Sarai Berumen DO, for the diagnosis of L shoulder impingement for a total of 3 visit(s). Discharge Date: Please see the following information for a summary of their discharge status. - Subjective Subjective: No pain this date - Pain L shoulder pain Pain Intensity (Out of 10): 0 - Objective Objective/Function: Pt is now I with HEP - Goals Goal 1:: I with HEP - Plan Plan: Discharge - D/C Information If there are questions or concerns regarding this patient's physical therapy, please feel free to call me at [phone]. Thank you for the referral of this patient. Sincerely, Agustín Joseph PT, ATC <Electronically signed by Agustín Joseph PT, ATC> 03/28/19 1734 CC: Sarai Berumen DO; Nancy Lucas DO [facility] Signed Nancy Lance Start: 03-21-2019 Colonoscopy Jasmeet Darshan Work Phone: Start: 03-17-2019 End: 03-17-2019 Inital Evaluation (1) - PT Comments: See Note; NOTES: [facility] [address] [place] [address] [address] [place] [id number] / REHABILITATION SERVICES INITIAL EVALUATION MR#: [id number] Acct: [id number] Name: LATIA MOODY Rep #: [id number] : 1975 43 From: Agustín Joseph PT, ATC Referring Dr.: Sarai Berumen DO Status: REG R Insurance: [employer] INSURANCE Patient's Visit Information LATIA MOODY is a 43 year old F referred to Physical Therapy by Sarai Berumen DO with a diagnosis of L shoulder impingement. Date of Evaluation: 03/17/19 Physical Therapist: Agustín Joseph PT, ATC - Visit Plan Frequency: 1x/Week Duration: 2 Weeks Plan: Issue and instruct on HEP of rotator cuff and scap stab ex's in 2 visits - Subjective Findings: Pt reports her L shoulddr was sore for a couple of months. Pt reports she just woke up one morning and she had L shoulder pain. Pt reports no PMHx recently. Pt reports she is L hand dominant. Pt reports no tingling or numbness in L UE. Pt reports sleep difficulty secondary to pain. Pt reports reaching across her body and house chores cause her to have increased pain. Pt reports she had nerve damage at in her R UE and is unable to use it functionally. Pt reports her pain is 4/10 at rest, increases to 8/10 at worst - Pain L shoulder pain Pain Intensity (Out of 10): 4 Pain Intensity Range: 8 - Objective Neuro: B UE sensation is WNL to oight touch. B biceptial reflex= 2/3. Palpation: Pt is sore on the posterior and lateral aspect of L shoulder along distribution of the supraspinatus. ROM: R shoulder not tested. L shoulder flex= 165, abd= 165, ER= 65, IR WNL. MMT: R shoulder NT. L shoulder 4/5 throughout. Special testing: Pos empty can test. - Goals Goal 1:: I with HEP Goal Time Frame: 2 Weeks - Rehabilitation Potential Physical Therapy Diagnosis: L shoulder pain, weakness, and limited ROM secondary to L shoulder impingement. Rehabilitation Potential: Good - Anticipated Interventions Patient/Client Instruction: Educate patient on: Condition, Plan of Care For the Purpose of:: To improve self management Therapeutic Exercise to Include: Strength training, Endurance training, Scapular Strength/Stabilization For the Purpose of:: To decrease pain, To increase ROM, To improve ability to perform ADL's Cryotherapy (ice pack, ice massage): Yes For the Purpose of:: To decrease pain Thank you for the opportunity to evaluate your patient. For Medicare and Medicare HMO plans, please review the plan of care and approve it. It will need to be FAXED BACK to us at [phone] for Medicare purposes. For Medicare only, by signing this I certify the plan of care. Please let me know if there are questions or concerns regarding this plan of care. Physician Signature: Date: <Electronically signed by Agustín Joseph PT, ATC> 03/17/19 1407 CC: Sarai Berumen DO; Nancy Lucas DO [facility] Signed Nancy Lucas Start: 03-17-2019 End: 03-17-2019 Orthopedic Visit Report Comments: See Note; NOTES: [facility]opa[facility]ics AND [facility] Medicine [address] [place], [place] [id number] OFFICE VISIT Date of Service: 03/17/19 MR#: [id number] Acct: [id number] Name: LATIA MOODY Rep #: [id number] : 1975 Provider: Sarai Berumen DO Age/Sex: 43/F Location: [facility] Status: Signed Intake Vital Signs03/17/19 Height 5 ft 2 in 03/17/19 Weight: 200 lb 03/17/19 Body Mass Index (BMI) 36.6 Intake Visit Reasons: LEFT SHOULDER Is patient in pain?: Yes Pain scale (1-10): 4 Allergies codeine Adverse Reaction (Severe, Verified 03/17/19 12:44) itchy, nausea Medications abatacept 50 mg/0.4 mL subcutaneous syringe SC ml 03/17/19 [History Confirmed 03/17/19] duloxetine 60 mg capsule,delayed release PO #90 cap 03/17/19 [History Confirmed 03/17/19] folic acid 1 mg tablet PO #180 tab 03/17/19 [History Confirmed 03/17/19] gabapentin 300 mg capsule PO #120 cap 03/17/19 [History Confirmed 03/17/19] methotrexate sodium 2.5 mg tablet PO #24 tab 03/17/19 [History Confirmed 03/17/19] omeprazole 40 mg capsule,delayed release PO #90 cap 03/17/19 [History Confirmed 03/17/19] peg 3350-electrolytes 236 gram-22.74 gram-6.74 gram-5.86 gram solution PO #4000 03/17/19 [History Confirmed 03/17/19] prednisone 10 mg tablet PO #30 tab 03/17/19 [History Confirmed 03/17/19] HPI LEFT SHOULDER: Details: Parts of this documentation were recorded by a scribe, this documentation accurately reflects the service provided and the decisions made by , Sarai Berumen DO 03/17/19 0677. LATIA MOODY is a 43 year old F NEW patient here today for left shoulder pain, referred by stephen aguila. 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 Patient has had this nerve damage from because she was born [place]. Patient has had this left shoulder pain for about 4 weeks. Patient denies any injury. Denies any numbness or tingling of her left arm. Does have pain over her AC joint and states that this occasionally radiates into her left arm and up into her neck. She does have some pain with ROM of her arm. ROS Musc Reports joint pain, Denies joint swelling, Reports muscle weakness, Denies numbness, Reports radiating pain into limb, Reports stiffness, Denies tingling Skin/Breast Denies redness, Denies lesions, Denies itching, Denies rash, Denies skin swelling Neuro No numbness, No tingling Ortho Exam Left Shoulder Contralateral Normal: No (weakness, stiffness, secondary to disability) Testing: Yes Hawkin's, Yes Neer's, Yes AROM-Forward Elevation 0-180, Yes AROM-External Rotation at side 0-60, No empty can SHOULDER: neuro intact right side, 5/5 ER Office Procedures Kenalog 40 mg/mL suspension for injection (triamcinolone acetonide) 80 mg intra-articular ONCE Injections Yes Subacromial Injection Left Details: Obtained consent for injection. Under sterile conditions, injected the patients left subacromial injection with a 10cc cocktail of 8cc bupivacaine and 2cc kenalog. The patient tolerated the injection well without any noted complication. Patient should call our office if redness develops, pain worsens or if they have any concerns. Office Meds Kenalog Performing Provider: Sarai Berumen DO Administered by: Sarai Berumen DO on 03/17/19 13:23 Dose Route Admin Location Lot Number Expiration Date [employer] 80 mg intra-articular left subacromial Assessment AND Plan Problems 1. Impingement syndrome, shoulder, left M75.42 Plan X-rays were reviewed. There is no obvious fracture, dislocation, or lucency noted. We will need to order an axillary for at exit of appointment. Explained that she has a straighten cervical spine and negative shoulder xrays. On exam she has signs of impingement and her treatment options are steroid injection today and PT. Reviewed the risks and benefits of steroid injection and patient elects to proceed. If she begins to have weakness and alterations in ADLs we will order an MRI, this is the only functional arm she has and explained that we will only do 2 injection then proceed to mri as her only fully functional arm d/t injury/palsy. Follow up as needed or sooner if pain, swelling, numbness or associated symptoms, or concerns develop. All questions answered. Patient in agreement of plan. Orders Orders: Medications Discontinued: Kenalog (triamcinolone acetonide) Disco80 mg (2 mL) intra-articular ONCE 2 mL 0RFM75.42 ntinued Reason: Office Medication has bee NS n Documented as given Coding Level of Care Code 88786 Diagnoses Impingement syndrome, shoulder, left M75.42 Additional Codes cardiac tech.sub (27947) 03/17/19 1537 <Electronically signed by Sarai Berumen DO> Date Sarai Berumen DO Cosigner Signature: Date (if applicable) CC: NOLA Almonte Yakelin Nancy Lucas Start: 03-17-2019 End: 03-18-2019 Shoulder One View Comments: See Note; NOTES: [facility] [address] [place] [address] Shoulder One View MR#: [id number] Acct: [id number] Name: LATIA MOODY Rep #: [id number] : 1975 F 43 From: Sher Andres MD PCP: Nancy Lucas DO Status: REG CLI Study: Shoulder One View Date of Exam: 03/17/19 Exam# [id number] Ordering Dr: Sarai Berumen DO STUDY: X-RAY - LEFT SHOULDER REASON FOR EXAM: Pain, axillary view to accompany previous radiographs. TECHNIQUE: A single view of the shoulder. COMPARISON: Radiographs 03/02/2019. FINDINGS: Normal axillary view of the left shoulder. Electronically Signed: Sher Andres MD at 12:42 EST Tel , Service support , RAD/Shoulder One View CC: Sarai Berumen DO; Nancy Lucas DO Power Machine Operator: Signed Nancy Lucas Start: 03-17-2019 End: 03-18-2019 Cerv Spine 4 or 5 Views Comments: See Note; NOTES: [facility] [address] [place] [address] Cerv Spine 4 or 5 Views MR#: [id number] Acct: [id number] Name: HEIDYLATIA Elen Rep #: [id number] : 1975 F 43 From: Amarjit Patel MD PCP: Nancy Lucas DO Status: REG CLI Study: Cerv Spine 4 or 5 Views Date of Exam: 03/17/19 Exam# [id number] Ordering Dr: Sarai Berumen DO STUDY: X-RAY - CERVICAL SPINE REASON FOR EXAM: Female, 43 years old. Left-sided neck pain. TECHNIQUE: 5 view(s) of the cervical spine were obtained including oblique views. COMPARISON: None FINDINGS: Normal anterior atlantoaxial articulation. Normal odontoid process. There is straightening of the normal cervical lordosis. Mild degree of disc space narrowing with anterior spondylosis at the C5-C6 level. Normal visualized intervertebral neuroforamina. The soft tissue structures are unremarkable. RAD/Cerv Spine 4 or 5 Views IMPRESSION: Mild degree of disc space narrowing and spondylosis at the C5-C6 level. Loss of the normal cervical lordosis. Electronically Signed: Amarjit Patel, at 14:02 EST , Service support , CC: Sarai Berumen DO; Nancy Lucas DO Power Machine Operator: Signed Nancy Lucas Start: 03-02-2019 End: 03-02-2019 Shoulder min 2 Views Comments: See Note; NOTES: [facility] [address] [place] [address] Shoulder min 2 Views MR#: [id number] Acct: [id number] Name: LATIA MOODY Rep #: [id number] : 1975 F 43 From: Chele Kulkarni DO PCP: Nancy Lucas DO Status: REG CLI Study: Shoulder min 2 Views Date of Exam: 03/02/19 Exam# [id number] Ordering Dr: Stephen Aguila PREPRESS PROOFER-C STUDY: X-RAY - LEFT SHOULDER REASON FOR EXAM: Female, 43 years old. Pain. Unsure of injury. TECHNIQUE: 4 view(s) of the shoulder. COMPARISON: Chest, August 10, 2018. FINDINGS: Normal glenohumeral articulation. There is mild degenerative arthrosis of the acromioclavicular joint without inferior osseous spur formation. Normal acromion. There is no acute fracture, dislocation or destructive osseous pathology. Normal humeral head and visualized proximal humerus. The soft tissue structures are unremarkable. Normal visualized pulmonary apex. RAD/Shoulder min 2 Views IMPRESSION: Very mild degenerative changes of the acromioclavicular joint. There is no acute fracture or dislocation. There is no major interval change when compared to a chest of August 10, 2017. Electronically Signed: Chele Kulkarni DO at 17:04 EDT Tel [phone], Service support , CC: NOLA Aguila; Nancy Lucas DO Power Machine Operator: Signed Stephen Licona Yakelin Work Phone: Start: 05-27-2018 End: 05-28-2018 Sinus/Facial Bone Comments: See Note; NOTES: [facility] [address] [place] [address] Sinus/Facial Bone MR#: [id number] Acct: [id number] Name: LATIA MOODY Rep #: [id number] : 1975 F 42 From: Alex Galo MD PCP: Nancy Lucas DO Status: REG CLI Study: Sinus/Facial Bone Date of Exam: 05/27/18 Exam# [id number] Ordering Dr: Sarath Becker MD STUDY: CT [...] CC: Matthew Becker MD; Nancy Lucas DO Power Machine Operator: Signed Matthew Becker Work Phone: Start: 02-25-2018 End: 02-26-2018 Spine Lumbar (Routine) Comments: See Note; NOTES: [facility] [address] [place] [address] Spine Lumbar (Routine) MR#: [id number] Acct: [id number] Name: LATIA MOODY Rep #: [id number] : 1975 F 42 From: Karen Lagos MD PCP: Nancy Lucas DO Status: REG CLI Study: Spine Lumbar (Routine) Date of Exam: 02/25/18 Exam# [id number] Ordering Dr: Nancy Lucas DO STUDY: MRI [...] Service support , CC: Nancy Lucas DO Power Machine Operator: Signed Nancy Lucas Work Phone: Start: 02-15-2018 End: 02-16-2018 HIP, UNI W/ Pelvis 2-3 Views Comments: See Note; NOTES: [facility] [address] [place] [address] HIP, UNI W/ Pelvis 2-3 Views MR#: [id number] Acct: [id number] Name: LATIA MOODY Rep #: [id number] : 1975 F 42 From: Sonu Fuentes DO PCP: Nancy Lucas DO Status: REG CLI Study: HIP, UNI W/ Pelvis 2-3 Views Date of Exam: 02/15/18 Exam# [id number] Ordering Dr: Jenelle London STUDY: X-RAY - [...] , CC: NOLA London; Nancy Lucas DO Power Machine Operator: Signed Jenelle London Start: 02-15-2018 End: 02-15-2018 L/S Spine Min 4 Views Comments: See Note; NOTES: [facility] [address] [place] [address] L/S Spine Min 4 Views MR#: [id number] Acct: [id number] Name: LATIA MOODY Rep #: [id number] : 1975 F 42 From: Leanna Pérez MD PCP: Nancy Lucas DO Status: REG CLI Study: L/S Spine Min 4 Views Date of Exam: 02/15/18 Exam# [id number] Ordering Dr: Jenelle London STUDY: X-RAY - LUMBAR SPINE REASON FOR [...] , CC: NOLA London; Nancy Lucas DO Power Machine Operator: Signed Jenelle London Start: 08-10-2017 End: 08-10-2017 Chest PA and Lateral Comments: See Note; NOTES: [facility] [address] [place] [address] Chest PA and Lateral MR#: [id number] Acct: [id number] Name: LATIA MOODY Rep #: [id number] : 1975 F 42 From: Rivera Young MD PCP: Nacny Lucas DO Status: REG CLI Study: Chest PA and Lateral Date of Exam: 08/10/17 Exam# [id number] Ordering Dr: Jenelle London STUDY: X-RAY CHEST REASON FOR EXAM: Female, [...] , CC: NOLA London; Nancy Lucas DO Power Machine Operator: Signed Jenelle London Work Phone: Start: 02-14-2016 End: 02-14-2016 CTA Chest W/WO Contrast Comments: See Note; NOTES: [facility] [address] [place] [address] Ver[place] 4d CTA Chest W/WO Contrast MR#: [id number] Acct: [id number] Name: LATIA MOODY Rep #: [id number] : 1975 F 40 From: Chele Kulkarni DO PCP: Nancy Lucas DO Status: REG CLI Study: CTA Chest W/WO Contrast Date of Exam: 02/14/16 Exam# [id number] Ordering Dr: Nancy Lucas DO STUDY: CTA CHEST REASON FOR EXAM: Female, 40 years old. Shortness of breath since last night. RADIATION DOSAGE (If Supplied By Facility): CTDIvol = ( 13.29 ) mGy, DLP = ( 762.64 ) mGycm TECHNIQUE: The examination was performed with the intravenous administration of 100 ml of Isovue 370 contrast material. Post-processing of the angiographic images was performed, with multiplanar reformation and 3D reconstruction. Individualized dose optimization techniques were used for this CT. COMPARISON: Chest, January 23, 2014. FINDINGS: Normal enhancement of the main pulmonary artery and right and left pulmonary arteries. Normal enhancement of the bilateral peripheral pulmonary arteries. There is no demonstrated pulmonary embolism. Normal thoracic aorta and visualized great vessels. There is no demonstrated aortic dissection. Normal heart and pericardium. Normal mediastinum. Normal hilar regions. Normal visualized trachea and bronchi. The lungs are well expanded. Normal pulmonary parenchyma. Normal pleura. Normal chest wall structures. Normal osseous structures. Normal visualized upper abdomen. CT/CTA Chest W/WO Contrast IMPRESSION: Normal CTA chest examination, without a demonstrated pulmonary embolism or arterial dissection. Electronically Signed: Chele Kulkarni DO at 13:32 EDT Tel [phone], Service support [phone], CC: Nancy Lucas DO Power Machine Operator: Signed Nancy Lucas Work Phone: Start: 11-02-2015 End: 11-02-2015 Lumbar Spine 2 or 3 Views Comments: See Note; NOTES: [facility] [address] [place] [address] Verda 4d Lumbar Spine 2 or 3 Views MR#: [id number] Acct: [id number] Name: LATIA MOODY Rep #: [id number] : 1975 F 40 From: Lubna Husain MD PCP: Nancy Lucas DO Status: REG CLI Study: Lumbar Spine 2 or 3 Views Date of Exam: 11/02/15 Exam# [id number] Ordering Dr: Nancy Lucas DO STUDY: X-RAY - LUMBAR SPINE REASON FOR EXAM: Female, 40 years old. Twisted back with exercise in 2 weeks ago left-sided low back pain TECHNIQUE: 3 view(s) of the lumbar spine were obtained. COMPARISON: None FINDINGS: Normal lumbar lordosis. There is no substantial scoliosis. There is a normal alignment of the vertebrae. There is mild multilevel spondylosis. The disc are relatively [...] at 16:25 EDT Tel , Service support [phone], RAD/Lumbar Spine 2 or 3 Views IMPRESSION: Degenerative change in the lumbar spine. No evidence of an acute fracture. Electronically Signed: Lubna Husain MD at 16:25 EDT Tel , Service support [phone], CC: Nancy Lucas DO Power Machine Operator: Signed Nancy Lucas Work Phone: Start: 10-10-2014 End: 10-10-2014 Knee 4 or More Views Comments: See Note; NOTES: [facility] [address] [place] [address] Radiology Report MR#: [id number] Acct: [id number] Name: LATIA MOODY Rep #: [id number] : 1975 F 39 From: Amarjit Patel MD PCP: Nancy Lucas DO Status: [facility] CLI Study: Knee 4 or More Views Date of Exam: 10/10/14 Exam# [id number] Ordering Dr: Georgette Kerr MD STUDY: X-RAY - LEFT KNEE REASON FOR EXAM: Female, 39 years old. Pain. TECHNIQUE: 4 view(s) of the knee. COMPARISON: None. FINDINGS: Normal visualized distal femur. Normal visualized proximal tibia and fibula. Normal proximal tibiofibular articulation. There is mild degenerative arthrosis of the medial femorotibial compartment. Normal lateral femorotibial compartment. Normal patellofemoral articulation. The soft tissue structures are unremarkable. IMPRESSION: Degenerative arthrosis. Electronically Signed: Amarjit Patel MD at 16:09 EDT Tel [phone], Service support [phone], RAD/Knee 4 or More Views IMPRESSION: Degenerative arthrosis. Electronically Signed: Amarjit Patel MD at 16:09 EDT Tel [phone], Service support [phone], CC: Nancy Lucas DO; Georgette Kerr MD Power Machine Operator: Signed Nancy Lucas Start: 10-09-2014 End: 10-10-2014 Brain W/WO Contrast Comments: See Note; NOTES: [facility] [address] [place] [address] MRI Report MR#: [id number] Acct: [id number] Name: LATIA MOODY Rep #: [id number] : 1975 F 39 From: Kel Vasquez DO PCP: Nancy Lucas DO Status: REG CLI Study: Brain W/WO Contrast Date of Exam: 10/09/14 Exam# [id number] Ordering Dr: Nancy Lucas DO STUDY: MRI BRAIN WITH AND WITHOUT CONTRAST REASON FOR EXAM: Female, 39 years old. The patient presents with a history of headaches with full-body neuropathy with reported vision abnormalities. TECHNIQUE: The following pulse sequences were obtained: Sagittal: T1; axial: T1 pre-and postcontrast, T2, FLAIR, DWI; coronal: T1 postcontrast, T2. 10 ml of Gadavist contrast material was administered intravenously for the contrast portion of the examination. COMPARISON: None. FINDINGS: Normal size of the ventricles and extra-axial spaces for the patient's age. Normal white matter tracts of the supratentorial brain. There is no evidence for recent intracranial ischemia or other cause of cytotoxic edema on diffusion weighted imaging (DWI). There are no demyelinating plagues of the supratentorial brain, brainstem or cerebellum. There are no findings suspicious for multiple sclerosis (MS). Normal bilateral basal ganglia. Normal thalami. There is no extra-axial fluid accumulation. Normal flow voids within the major intracranial circulation suggesting patency by spin echo criteria. Normal venous enhancement. There is no enhancing intra-axial or extra-axial abnormality. There is enlargement of the sella turcica with increased CSF within the sella and flattening of the pituitary gland consistent with an empty sellar syndrome (sagittal T1 series 3, image 12).. Normal infundibular stalk, hypothalamus, and optic chiasm. Normal tectal plate and pineal gland. Normal midbrain, mekhi and medulla. There is 4 mm of tonsillar ectopia of the right cerebellar hemisphere with 2 mm of tonsillar ectopia of the left cerebellar tonsil (sagittal T1 series 3, image 12 and 13). There is no distortion brainstem cervical cord junction. The right cerebellar tonsillar ectopia is at the upper limits of normal. Normal basal cisterns. Normal bilateral temporal bones. Normal bilateral internal auditory canals. No demonstrated orbital abnormality, within the constraints of a routine brain study. Normal visualized paranasal sinuses. Normal calvarium and skull base. Normal visualized soft tissue structures. Normal visualized upper cervical spine. IMPRESSION: 1. Normal MRI the brain. 2. No demonstrated demyelinating process. 3. 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 Electronically Signed: Kel Vasquez DO at 11:41 EDT Tel , Service support [phone], CC: Nancy Lucas DO Power Machine Operator: Signed Nancy Lance Work Phone: Start: 06-08-2014 End: 06-08-2014 Spine Cervical (Routine) Comments: See Note; NOTES: [facility] [address] [place] [address] MRI Report MR#: [id number] Acct: [id number] Name: LATIA MOODY Rep #: [id number] : 1975 F 38 From: Vladimir Llamas MD PCP: Nancy Lucas DO Status: REG CLI Study: Spine Cervical (Routine) Date of Exam: 06/08/14 Exam# [id number] Ordering Dr: Henrique Mccabe MD STUDY: MRI CERVICAL SPINE WITHOUT CONTRAST REASON FOR EXAM: Female, 38 years old. Chronic neck and rt arm pain, hx RA TECHNIQUE: Standardized fat and water weighted pulse sequences were obtained in the sagittal and axial planes. COMPARISON: Prior x-rays of the cervical spine on 05-29-14 FINDINGS: Normal foramen magnum and brainstem-cervical cord junction. Normal craniovertebral junction. Normal anterior atlantoaxial articulation. Normal odontoid process. There is straightening of the normal cervical lordosis. Normal vertebral bodies and posterior osseous elements. C2-3: Normal endplates. Normal disc height, signal [...] Normal central canal and intervertebral neural foramina. C7-T1: Normal endplates. Normal disc height, signal and morphology. Normal central canal and intervertebral neural foramina except for right perineural cyst. Normal cervical cord. Normal visualized soft tissue structures. IMPRESSION: Straightening of the normal lordosis. C5-6 moderate annular bulge. C7-T1 right perineural cyst Electronically Signed: Vladimir Llamas MD, FACR at 20:18 EST , Service support [phone], CC: Henrique Mccabe MD; Nancy Lucas DO Power Machine Operator: Signed Nancy Lucas Start: 05-29-2014 End: 05-29-2014 Cerv Spine 2 or 3 Views Comments: See Note; NOTES: [facility] [address] [place] [id number] Radiology Report MR#: [id number] Acct: [id number] Name: LATIA MOODY Rep #: [id number] : 1975 F 38 From: Kaycee Suero MD PCP: Nancy Lucas DO Status: [facility] CLI Study: Cerv Spine 2 or 3 Views Date of Exam: 05/29/14 Exam# [id number] Ordering Dr: Henrique Mccabe MD STUDY: X-RAY - CERVICAL SPINE REASON FOR EXAM: Female, 38 years old chronic neck pain. TECHNIQUE: 4 view(s) of the cervical spine were obtained. COMPARISON: None FINDINGS: Normal anterior atlantoaxial articulation. Normal odontoid process. There is straightening of the normal cervical lordosis. Normal vertebral bodies and endplates. Normal disc space heights. Normal visualized intervertebral neuroforamina. The soft tissue structures are unremarkable. IMPRESSION: No acute fracture or subluxation in the cervical spine. Electronically Signed: Kaycee Suero MD at 22:44 EST Tel , Service support [phone], CC: Henrique Mccabe MD; Nancy Lucas DO Power Machine Operator: Signed Nancy Lucas Start: 01-23-2014 End: 01-23-2014 Chest PA and Lateral Comments: See Note; NOTES: [facility] [address] [place] [address] Radiology Report MR#: [id number] Acct: [id number] Name: LATIA MOODY Rep #: [id number] : 1975 F 38 From: Amarjit Patel MD PCP: Nancy Lucas DO Status: REG CLI Study: Chest PA and Lateral Date of Exam: 01/23/14 Exam# [id number] Ordering Dr: Micki Garcia DO STUDY: X-RAY CHEST REASON FOR EXAM: Female, 38 years old. 9 day history of cough. TECHNIQUE: PA and lateral views of the chest. COMPARISON: Comparison is made with prior study dated October 12, 2013. FINDINGS: Calcified old granulomatous disease. There is [...] examination of the chest. Electronically Signed: Amarjit Patel MD at 14:51 EDT Tel [phone], Service support [phone], CC: Micki Garcia DO; Nancy Lucas DO Power Machine Operator: Signed Micki Garcia Work Phone: Start: 01-12-2014 End: 01-12-2014 Bilat Scrn Digital & CAD Comments: See Note; NOTES: [facility] [address] [place] [address] Breast Imaging Report MR#: [id number] Acct: [id number] Name: LATIA MOODY Rep #: [id number] : 1975 F 38 From: Amarjit Patel MD PCP: Nancy Lucas DO Status: REG CLI Exam# [id number] Ordering Dr: Nancy Lucas DO MAMMOGRAPHY - BILATERAL SCREENING REASON FOR EXAM: Female, 38 years old. Routine annual screening examination. PERTINENT HISTORY: Non-contributory. TECHNIQUE: Digital examination. Mediolateral oblique (MLO) and craniocaudad (CC) views of both breasts were obtained. CAD: CAD was performed on this study. COMPARISON: None. Baseline examination. FINDINGS: Breast Composition: There are scattered areas of fibroglandular density. There are no dominant masses or suspicious calcifications. There is asymmetry of breast tissue where more breast tissue is seen in the right breast as compared to the left side. No other significant abnormalities are identified. IMPRESSION: Negative screening mammogram. Yearly followup recommended. (A) ASSESSMENT CATEGORY: BIRADS Category 2: Benign finding(s). A letter regarding these results will be sent to the patient by the facility within 30 days. Approximately 10% of breast cancers are not detected by mammography. A normal mammogram should not delay biopsy of a clinically suspicious abnormality. Electronically Signed: Amarjit Patel MD at 9:46 EDT Tel [phone], Service support [phone], CC: Nancy Lucas DO Power Machine Operator: Signed Nancy Lucas Work Phone: section Sailaja Viveros g section Sindi isbell section Sailaja Viveros g section Cruz George h section Lindsey Grav ius section Rosalind Veronicam an section Lindsey Grav ius section Lindsey Grav ius PHOTOGRAMMETRIC ENGINEER section Lindsey Grav ius PHOTOGRAMMETRIC ENGINEER section Lindsey Grav ius PHOTOGRAMMETRIC ENGINEER section Nona Slar b HEARING AID ASSISTANT section Maura Murp hy MA section Susan Man chak PHOTOGRAMMETRIC ENGINEER section Florence Kenisha n MA section Nona Slar b HEARING AID ASSISTANT section Kayela Radf ord PHOTOGRAMMETRIC ENGINEER Cholecystectomy Sailaja L Long Cholecystectomy Sindi Waltersl ear Cholecystectomy Sailaja L Long Cholecystectomy Cruz Kumari Cholecystectomy Lindsey Gravi us Cholecystectomy Rosalind Coffma n Cholecystectomy Lindsey Gravi us Cholecystectomy Lindsey Gravi us PHOTOGRAMMETRIC ENGINEER Cholecystectomy Lindsey Gravi us PHOTOGRAMMETRIC ENGINEER Cholecystectomy Lindsey Gravi us PHOTOGRAMMETRIC ENGINEER Cholecystectomy Nona Slarb HEARING AID ASSISTANT Cholecystectomy Maura Lorenza y MA Cholecystectomy Susan Manc hak PHOTOGRAMMETRIC ENGINEER Cholecystectomy Florence Marysvale MA Cholecystectomy Nona Slarb HEARING AID ASSISTANT Cholecystectomy Kayela Radfo rd PHOTOGRAMMETRIC ENGINEER 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 Ja landon Guardado PHOTOGRAMMETRIC ENGINEER Comment on above: 1998 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 Ja landon Guardado PHOTOGRAMMETRIC ENGINEER Comment on above: 1998 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 Joel Guardado PHOTOGRAMMETRIC ENGINEER Comment on above: 1998 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 An annamaria Slarb HEARING AID ASSISTANT Comment on above: 1998 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 Jl Medina MA Comment on above: 1998 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 Omari jessy Cannonsoy [facility] Comment on above: 1998 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 Jacklyn Loera MA Comment on above: 1998 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 An annamaria Slarb HEARING AID ASSISTANT Comment on above: 1998 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 Jean Kendrick [facility] Comment on above: 1998 Microscopic examinat ion of cervical Papanicolaou smear Sailaja Allan Comment on above: 3 yrs Microscopic examinat ion of cervical Papanicolaou smear Sindi Slater Comment on above: 3 yrs Microscopic examinat ion of cervical Papanicolaou smear Sailaja Allan Comment on above: 3 yrs Microscopic examinat ion of cervical Papanicolaou smear Cruz Kumari Comment on above: 3 yrs Microscopic examinat ion of cervical Papanicolaou smear Lindsey Gravius Comment on above: 3 yrs Microscopic examinat ion of cervical Papanicolaou smear Rosalind Looney Comment on above: 3 yrs Microscopic examinat ion of cervical Papanicolaou smear Lindsey Gravius Comment on above: 3 yrs Microscopic examinat ion of cervical Papanicolaou smear Lindsey Gravius PHOTOGRAMMETRIC ENGINEER Comment on above: 3 yrs Microscopic examinat ion of cervical Papanicolaou smear Lindsey Gravius PHOTOGRAMMETRIC ENGINEER Comment on above: 3 yrs Microscopic examinat ion of cervical Papanicolaou smear Lindsey Gravius PHOTOGRAMMETRIC ENGINEER Comment on above: 3 yrs Microscopic examinat ion of cervical Papanicolaou smear Nona Slarb HEARING AID ASSISTANT Comment on above: 3 yrs Microscopic examinat ion of cervical Papanicolaou smear Maura Medina MA Comment on above: 3 yrs Microscopic examinat ion of cervical Papanicolaou smear Susan Manchak PHOTOGRAMMETRIC ENGINEER Comment on above: 3 yrs Microscopic examinat ion of cervical Papanicolaou smear Florence Loera MA Comment on above: 3 yrs Microscopic examinat ion of cervical Papanicolaou smear Nona Slarb HEARING AID ASSISTANT Comment on above: 3 yrs Microscopic examinat ion of cervical Papanicolaou smear Lily Kendrick PHOTOGRAMMETRIC ENGINEER Comment on above: 3 yrs Ophthalmic examinati on and evaluation Sailaja Allan Comment on above: 2 yrs Ophthalmic examinati on and evaluation Sindi Slater Comment on above: 2 yrs Ophthalmic examinati on and evaluation Sailaja Allan Comment on above: 2 yrs Ophthalmic examinati on and evaluation Cruz Kumari Comment on above: 2 yrs Ophthalmic examinati on and evaluation Lindsey Gravius Comment on above: 2 yrs Ophthalmic examinati on and evaluation Rosalind Looney Comment on above: 2 yrs Ophthalmic examinati on and evaluation Lindsey Gravius Comment on above: 2 yrs Ophthalmic examinati on and evaluation Lindsey Gravius PHOTOGRAMMETRIC ENGINEER Comment on above: 2 yrs Ophthalmic examinati on and evaluation Lindsey Gravius PHOTOGRAMMETRIC ENGINEER Comment on above: 2 yrs Ophthalmic examinati on and evaluation Lindsey Gravius PHOTOGRAMMETRIC ENGINEER Comment on above: 2 yrs Ophthalmic examinati on and evaluation Nona Slarb HEARING AID ASSISTANT Comment on above: 2 yrs Ophthalmic examinati on and evaluation Maura Medina MA Comment on above: 2 yrs Ophthalmic examinati on and evaluation Susan Manchak PHOTOGRAMMETRIC ENGINEER Comment on above: 2 yrs Ophthalmic examinati on and evaluation Florence Loera MA Comment on above: 2 yrs Ophthalmic examinati on and evaluation Nona Slarb HEARING AID ASSISTANT Comment on above: 2 yrs Ophthalmic examinati on and evaluation Lily Kendrick CMA Comment on above: 2 yrs Rhino and sinoplasty Sailaja Allan Comment on above: 06/2017 dr felix Rhino and sinoplasty Sindi Slater Comment on above: 06/2017 dr felix Rhino and sinoplasty Sailaja Allan Comment on above: 06/2017 dr felix Rhino and sinoplasty Cruz Kumari Comment on above: 06/2017 dr felix Rhino and sinoplasty Lindsey Gravjamie Comment on above: 06/2017 dr felix Rhino and sinoplasty Rosalind cannon Comment on above: 06/2017 dr felix Rhino and sinoplasty Lindsey Gravius Comment on above: 06/2017 dr felix Rhino and sinoplasty Lindsey Gravius PHOTOGRAMMETRIC ENGINEER Comment on above: 06/2017 dr felix Rhino and sinoplasty Lindsey Gravius PHOTOGRAMMETRIC ENGINEER Comment on above: 06/2017 dr felix Rhino and sinoplasty Lindsey Gravius SELENA Comment on above: 06/2017 dr felix Rhino and sinoplasty Nona Slarb HEARING AID ASSISTANT Comment on above: 06/2017 dr felix Rhino and sinoplasty Maura Medina MA Comment on above: 06/2017 dr felix Rhino and sinoplasty Susna Acevedo CMA Comment on above: 06/2017 dr felix Rhino and sinoplasty Florence Loera MA Comment on above: 06/2017 dr felix Rhino and sinoplasty Nona Slarb HEARING AID ASSISTANT Comment on above: 06/2017 dr felix Rhino and sinoplasty Lily Kendrick CMA Comment on above: 06/2017 dr felix Screening colonoscopy Sailaja Allan Comment on above: 5yrs Screening colonoscopy Sindi Slater Comment on above: 5yrs Screening colonoscopy Sailaja Allan Comment on above: 5yrs Screening colonoscopy Cruz Kumari Comment on above: 5yrs Screening colonoscopy Lindsey Gravius Comment on above: 5yrs Screening colonoscopy Rosalind Looney Comment on above: 5yrs Screening colonoscopy Lindsey Gravius Comment on above: 5yrs Screening colonoscopy Lindsey Gravius SELENA Comment on above: 5yrs Screening colonoscopy Lindsey Gravius PHOTOGRAMMETRIC ENGINEER Comment on above: 5yrs Screening colonoscopy Lindsey Gravius PHOTOGRAMMETRIC ENGINEER Comment on above: 5yrs Screening colonoscopy Nona Slarb HEARING AID ASSISTANT Comment on above: 5yrs Screening colonoscopy Maura Mdeina MA Comment on above: 5yrs Screening colonoscopy Chelse a Manchak PHOTOGRAMMETRIC ENGINEER Comment on above: 5yrs Screening colonoscopy Florence Loera MA Comment on above: 5yrs Screening colonoscopy Nona Slarb HEARING AID ASSISTANT Comment on above: 5yrs Screening colonoscopy Lily Kendrick CMA Comment on above: 5yrs Screening mammography Sailaja L Jerrell Comment on above: 10yrs Screening mammography Sindi Walterslear Comment on above: 10yrs Screening mammography Sailaja L Long Comment on above: 10yrs Screening mammography Cruz Kumari Comment on above: 10yrs Screening mammography Lindsey Gravius Comment on above: 10yrs Screening mammography Rosalindritesh Looney Comment on above: 10yrs Screening mammography Lindsey Gravius Comment on above: 10yrs Screening mammography Lindsey Gravius PHOTOGRAMMETRIC ENGINEER Comment on above: 10yrs Screening mammography Lindsey Gravius PHOTOGRAMMETRIC ENGINEER Comment on above: 10yrs Screening mammography Lindsey Gravius PHOTOGRAMMETRIC ENGINEER Comment on above: 10yrs Screening mammography Nona Slarb HEARING AID ASSISTANT Comment on above: 10yrs Screening mammography Maura Medina MA Comment on above: 10yrs Screening mammography Chelse a Manchak PHOTOGRAMMETRIC ENGINEER Comment on above: 10yrs Screening mammography Florence Loera MA Comment on above: 10yrs Screening mammography Nona Slarb HEARING AID ASSISTANT Comment on above: 10yrs Screening mammography Lily Kendrick CMA Comment on above: 10yrs Plan of Treatment Date Care Activity Detail Author Start: 03-21-2029 Screening for malign ant neoplasm of colon [facility] Start: 12-28-2024 Depression screening using PHQ-9 (Patient Health Questionnaire 9) score Depression Screening/Follow-Up (PHQ-2/9) [facility] Start: 06-10-2024 Screening for malign ant neoplasm of breast Mammogram [facility] Start: 04-05-2024 End: 04-05-2024 Patient encounter procedure 04/05/2024 10:30 AM EST Office Visit [facility] [address] [place] [id number] Jasmeet Sexton DO [address] [place] [address] [facility] Start: 01-03-2024 Influenza vaccination [facility] Start: 12-29-2023 End: 12-29-2023 Patient encounter procedure 12/29/2023 12:30 PM EDT Office Visit [facility] [address] [place] [address] Jasmeet Sexton DO [address] [place] [address] [facility] Start: 07-31-2023 Administration of herpes zoster vaccine Zoster Vaccines (1 of 2) [facility] Start: 07-31-2023 Screening for malign ant neoplasm of colon Flexible sigmoidoscopy [facility] Start: 01-02-2023 COVID-19 Vaccine ( season) COVID-19 Vaccine () [facility] Start: 09-05-2022 Iaadiadoo influenza 2019 Novel Coronavirus (COVID-19), ALEX (76685) [facility]; [facility] Work Phone: Start: 09-05-2022 Procedure Education Eprescribe d prescriptions (G8553) [facility]; [facility] Work Phone: Start: 09-05-2022 Throat culture THROAT CULTURE (04353 ) [facility]; [facility] Work Phone: Start: 08-01-2022 Procedure Education Eprescribe d prescriptions (G8553) [facility]; [facility] Work Phone: Start: 08-01-2022 Provider Instruction s for Treatment Follow up if no improvement or if symptoms worsen [facility]; [facility] Work Phone: Start: 07-09-2022 Procedure Education Eprescribe d prescriptions (G8553) [facility]; [facility] Work Phone: Start: 07-09-2022 Provider Instruction s for Treatment Follow up if no improvement or if symptoms worsen [facility]; [facility] Work Phone: Start: 10-01-2021 Procedure Education Eprescribe d prescriptions (G8553) [facility]; [facility] Work Phone: Start: 2021 Procedure Education Eprescribe d prescriptions (G8553) [facility]; [facility] Work Phone: Start: 2021 Provider Instruction s for Treatment Follow up if no improvement or if symptoms worsen [facility]; [facility] Work Phone: Start: 06-14-2021 Procedure Education Eprescribe d prescriptions (G8553) [facility]; [facility] Work Phone: Start: 06-14-2021 Provider Instruction s for Treatment Continue Current Prescription(s) [facility]; [facility] Work Phone: Start: 05-13-2021 Procedure Education Eprescribe d prescriptions (G8553) [facility]; [facility] Work Phone: Start: 05-13-2021 Provider Instruction s for Treatment [facility]; [facility] Work Phone: Start: 01-11-2021 Procedure Education Eprescribe d prescriptions (G8553) [facility]; [facility] Work Phone: Start: 08-30-2020 Procedure Education Eprescribe d prescriptions (G8553) [facility]; [facility] Work Phone: Start: 08-30-2020 Culture bct isol&prsmptv id isolate ea urine URINE BRICE CULTURE-IDENTIFICATN (70096) [facility]; [facility] Work Phone: Start: 06-21-2020 Procedure Education Eprescribe d prescriptions (G8553) [facility]; [facility] Work Phone: Start: 06-21-2020 Provider Instruction s for Treatment [facility]; [facility] Work Phone: Start: 06-21-2020 Fibrin dgradj produc ts d-dimer quantitative D-Dimer (74608) [facility]; [facility] Work Phone: Comment on above: from blood work done at [facility] ER this am Start: 03-16-2020 Procedure Education Eprescribe d prescriptions (G8553) [facility] Work Phone: Start: 03-16-2020 Provider Instruction s for Treatment [facility] Work Phone: Start: 01-24-2020 Procedure Education Eprescribe d prescriptions (G8553) [facility] Work Phone: Start: 01-24-2020 Provider Instruction s for Treatment Follow up if no improvement or if symptoms worsen [facility] Work Phone: Start: 01-24-2020 Culture bacterial quanttative colony count urine URINE BRICE CULTURE-FIDEL COL COUNT (21969) [facility] Work Phone: Start: 12-05-2019 Procedure Education Eprescribe d prescriptions (G8553) [facility] Work Phone: Start: 12-05-2019 Provider Instruction s for Treatment Shave Biopsy with Epi [facility] Work Phone: Start: 03-23-2019 Procedure Education Eprescribe d prescriptions (G8553) [facility] Work Phone: Start: 03-23-2019 Provider Instruction s for Treatment Follow up if no improvement or if symptoms worsen [facility] Work Phone: Start: 03-02-2019 Procedure Education Eprescribe d prescriptions (G8553) [facility] Work Phone: Start: 03-02-2019 Provider Instruction s for Treatment Follow up if no improvement or if symptoms worsen [facility] Work Phone: Start: 10-18-2018 Patient Education Common Cold *: upper respiratory infection [facility] Work Phone: Start: 10-18-2018 Procedure Education Eprescribe d prescriptions (G8553) [facility] Work Phone: Start: 10-18-2018 Provider Instruction s for Treatment Follow up if no improvement or if symptoms worsen [facility] Work Phone: Start: 10-18-2018 Throat culture THROAT CULTURE (68472 ) [facility] Work Phone: Start: 05-05-2018 Procedure Education Eprescribe d prescriptions (G8553) [facility] Work Phone: Start: 05-05-2018 Provider Instruction s for Treatment [facility] Work Phone: Start: 05-05-2018 Throat culture THROAT CULTURE (37009 ) [facility] Work Phone: Start: 05-05-2018 Iaadiadoo influenza Rapid Flu (50596 x 2) [facility] Work Phone: Start: 02-23-2018 Procedure Education Eprescribe d prescriptions (G8553) [facility] Work Phone: Start: 02-23-2018 Provider Instruction s for Treatment Follow up if no improvement or if symptoms worsen [facility] Work Phone: Start: 02-15-2018 Procedure Education Eprescribe d prescriptions (G8553) [facility] Work Phone: Start: 02-15-2018 Provider Instruction s for Treatment Follow up if no improvement or if symptoms worsen [facility] Work Phone: Start: 12-14-2017 Procedure Education Eprescribe d prescriptions (G8553) [facility] Work Phone: Start: 12-14-2017 Provider Instruction s for Treatment Follow up if no improvement or if symptoms worsen [facility] Work Phone: Start: 08-11-2017 Patient Education Asthma: asthma Com [facility] Work Phone: Start: 08-11-2017 Procedure Education Eprescribe d prescriptions (G8553) [facility] Work Phone: Start: 08-11-2017 Provider Instruction s for Treatment [facility] Work Phone: Start: 08-10-2017 Procedure Education Eprescribe d prescriptions (G8553) [facility] Work Phone: Start: 08-10-2017 Provider Instruction s for Treatment Follow up tomorrow, as needed [facility] Work Phone: Start: 08-05-2017 Procedure Education Eprescribe d prescriptions (G8553) [facility] Work Phone: Start: 08-05-2017 Provider Instruction s for Treatment [facility] Work Phone: Start: 05-06-2017 Procedure Education Eprescribe d prescriptions (G8553) [facility] Work Phone: Start: 05-06-2017 Provider Instruction s for Treatment Follow up if no improvement or if symptoms worsen [facility] Work Phone: Start: 03-30-2017 Patient Education Sore throat: diagnosis and treatment [facility] Work Phone: Start: 03-30-2017 Procedure Education Eprescribe d prescriptions (G8553) [facility] Work Phone: Start: 03-30-2017 Iaadiadoo streptococ cus group a Rapid Strep Test, Office (07279) [facility]; [facility] Work Phone: Start: 03-30-2017 S. pyogenes Ag IA Ql (Unsp spec) Rapid Strep Test, Office (27555) [facility] Work Phone: Start: 03-30-2017 Iaadiadoo influenza Rapid Flu (24657 x 2) [facility] Work Phone: Start: 02-14-2016 Fibrin dgradj produc ts d-dimer quantitative D-Dimer (32134) [facility] Work Phone: Start: 12-14-2015 Provider Instruction s for Treatment Reviewed Diagnostic Tests [facility] Work Phone: Start: 11-02-2015 Procedure Education Eprescribe d prescriptions (G8553) [facility] Work Phone: Start: 11-02-2015 Provider Instruction s for Treatment Follow up in 5-6 weeks [facility] Work Phone: Start: 06-05-2015 Iaadi[place]oo influenza Rapid Flu (97059 x 2) [facility] Work Phone: Start: 06-05-2015 Provider Instruction s for Treatment Follow up if no improvement or if symptoms worsen [facility] Work Phone: Start: 10-11-2014 Provider Instruction s for Treatment Follow up if no improvement or if symptoms worsen [facility] Work Phone: Start: 10-02-2014 Cobalamin (Vitamin B 12) mass conc VITAMIN B-12 (CYANOCOBALAMIN) (24615) [facility] Work Phone: Start: 10-02-2014 Cyanocobalamin vitam in b-12 VITAMIN B-12 (CYANOCOBALAMIN) (05816) [facility]; [facility] Work Phone: Start: 10-02-2014 Sedimentation rate r bc non-automated SED RATE ERYTHROCYTE (61182) [facility] Work Phone: Start: 10-02-2014 C-reactive protein C-REACTIVE PROTEIN (45710) [facility]; [facility] Work Phone: Start: 10-02-2014 CRP mass conc C-REACTIVE PRO TEIN (11420) [facility] Work Phone: Start: 10-02-2014 Assay of magnesium MAGNESIUM (15636) [facility]; [facility] Work Phone: Start: 10-02-2014 Magnesium mass conc MAGNESIUM (66793 ) [facility] Internal Medicine Work Phone: Start: 10-02-2014 25 hydroxy includes fractions if performed CALCIFIDIOL (80638) VIT D 25 [facility] Work Phone: Start: 10-02-2014 Assay of thyroid stimulating hormone tsh TSH (99027) [facility]; [facility] Work Phone: Start: 10-02-2014 Thyrotropin Qn TSH (71813) Comprehe nsive Internal Medicine Work Phone: Start: 10-02-2014 Blood count complete auto&auto difrntl wbc CBC W/AUTO DIFF WBC (81416) [facility] Work Phone: Start: 10-02-2014 Comprehensive metabo lic panel METABOLIC PANEL, COMPREHENSIVE (10086) [facility] Work Phone: Start: 02-03-2014 Provider Instruction s for Treatment [facility] Work Phone: Start: 01-23-2014 Procedure Education Eprescribe d prescriptions (G8553) [facility] Work Phone: Start: 08-31-2013 Hemoglobin A1c/Hemoglobin.total mass fraction (Bld) HgA1C , Office (60305) [facility] Work Phone: Start: 08-31-2013 Hemoglobin glycosyla rebecca a1c HgA1C , Office ([id number]) [facility]; [facility] Work Phone: Start: 08-31-2013 Provider Instruction s for Treatment GERD Education [facility] Work Phone: Start: 2013 Screening for malign ant neoplasm of breast Mammogram [facility] Start: 07-31-2003 Screening for malign ant neoplasm of cervix [facility] Start: 1994 Screening for malign ant neoplasm of cervix Pap Smear [facility] Start: 07-31-1991 Hepatitis C screening Hepatitis C Sc reening [facility] Start: 1988 HIV screening HIV Screening [facility] Start: 1985 Depression screening using PHQ-9 (Patient Health Questionnaire 9) score Depression Screening (PHQ-2/9) [facility] Start: 07-31-1979 Pneumococcal Vaccine : Ped or At-Risk (1 of 2 - PCV) Pneumococcal Vaccine: Ped or At-Risk (1 of 2 - PCV) [facility] Start: 1976 History and physical examination, annual for health maintenance Wellness Visit [facility] Start: 1973 Screening for malign ant neoplasm of colon [facility] Start: 1973 Tetanus vaccination Tetanus: Every 1 0yrs [facility] End: 12-28-2024 PFT spirometry with pre and post bronchodilator PFT spirometry with pre and post bronchodilator PFT Routine Exertional dyspnea 1 Occurrences starting 12/29/2023 until 12/28/2024 [facility] Work Phone: Comment on above: 1 Occurrences starti ng 12/29/2023 until 12/28/2024 End: 09-16-2024 Tryptase Tryptase Lab Routine Chronic urticaria 1 Occurrences starting 09/17/2023 until 09/16/2024 [facility] Work Phone: Comment on above: 1 Occurrences starti ng 09/17/2023 until 09/16/2024 Tryptase Tryptase Lab Rou quang Chronic urticaria 09/17/2023 3:06 PM EDT [facility] Work Phone: [facility]: [facility] Work [facility]: [facility] Work [facility]: [facility] Work [facility]: [facility] Work Phone: [facility] Work Phone[facility] Work Phone: [facility] Work Phone: [facility] Work Phone: [facility] Work Phone: [facility] Work Phone: [facility] Work Phone: [facility] Work Phone: [facility] Work Phone: [facility] Work Phone: [facility] Work Phone: [facility] Work Phone: [facility] Work Phone: [facility] Work Phone: [facility] Work Phone: [facility] Work Phone: [facility]; [facility] Work Phone: [facility]; [facility] Work Phone: [facility]; [facility] Work Phone: [facility]; [facility] Work Phone: [facility]; [facility] Work Phone: [facility]; [facility] Work Phone: Payers Date Payer Category Payer Private Health Insurance [employer] [facility] [id number] 2020-Present [phone] [address] [place] [address] [id number] 2020 Private Health Insurance [id number] 2018 Unknown [id number] 1973 Unknown [id number] 1973 Unknown [id number] 1973 Unknown [id number] 1973 Unknown [id number] 1973 Unknown [id number] 1973 Unknown [id number] Unknown Social History Date Type Detail Facility Start: 11-13-2023 Caffeine Use Former smoker [facility] Work Phone: Comment on above: qd Exercise History: Exercises occasionally. [facility] Work Phone: Living Situation: Lives with spouse. Comp rehensive Internal Medicine Work Phone: Number of Child (age 0-17) Dependents: 2. [facility] Work Phone: Pets/Animals: Dog. [facility] Work Phone: Tobacco use: Former smoker. [facility] Work Phone: Exercise History: Exercise History: Compr e[facility]; [facility] Work Phone: [facility] Work Phone: Number of Child (age 0-17) Dependents: Number of Child (age 0-17) Dependents: [facility]; [facility] Work Phone: Pets/Animals: Pets/Animals: [facility]; [facility] Work Phone: Tobacco use: Tobacco use: [facility]; [facility] Work Phone: Tobacco smoking stat [facility] Tobacco smoking consumption unknown [facility] Start: 1975 Sex Assigned At Not on file [facility] Start: 09-17-2023 Gender identity Identifies as female gender (finding) [facility] Start: 09-17-2023 Sexual orientation Heterosexual (fin ding) [facility] Start: 11-13-2023 Tobacco smoking stat [facility] Never smoked tobacco [facility] Start: 11-13-2023 Tobacco use and exposure Smokeless tobacco non-user [facility] Start: 11-13-2023 Tobacco use panel [facility] Clinical Notes 09-17-2023 to 12-29-2023 Jasmeet Sexton, DO - 12/29/2023 2:30 PM EDTAssessment & Plan Note - Jasmeet Sexton, DO - 09/17/2023 3:33 PM EDJasmeet Decker, DO - 09/17/2023 3:20 PM EDT Note Date & Type Note Facility 12-29-2023 Note Assessment & Plan (Please note that this note was predominantly written using an AI-based voice recognition software. Efforts were made to correct any errors, but occasionally the software creates inaccuracies. Please reach out for any clarification.) Assessment & Plan 1. Exertional dyspnea. Symptoms suggest a possible bronchospasm, but albuterol has not been effective. The leg swelling appears to be more consistent with lymphedema rather than cardiac-related edema. Given her history of extensive allergies and illness-induced asthma, reactive airway disease is a potential diagnosis. However, her 15-year smoking history could also indicate COPD. Pulmonary function testing (PFT) will be conducted to further investigate the cause of her symptoms. If PFT results are normal, a low threshold for deciding on stress testing will be maintained. Stress testing is currently on hold as the symptoms do not appear to be cardiac-related. 2. Fibromyalgia, dysautonomia. The Cymbalta 30 mg twice daily regimen did not yield significant benefits. The dosage of Cymbalta will be reduced to once daily. Nortriptyline 10 mg will be introduced at nighttime to assess its effectiveness. It may take a few weeks to observe any changes. She will provide updates via [employer] in a couple of weeks regarding her tolerance to the new medication. Follow-up A follow-up visit is scheduled in 3 months. Diagnoses and all orders for this visit: Exertional dyspnea - PFT spirometry with pre and post bronchodilator; Future Dysautonomia-like disorder - DULoxetine (CYMBALTA) 30 MG capsule; Take 1 (one) capsule (30 mg total) by mouth daily . - nortriptyline (PAMELOR) 10 MG capsule; Take 1 (one) capsule (10 mg total) by mouth nightly . Fibromyalgia - nortriptyline (PAMELOR) 10 MG capsule; Take 1 (one) capsule (10 mg total) by mouth nightly . Healthcare maintenance Problem List Diagnosed Dysautonomia-like disorder Relevant Medications DULoxetine (CYMBALTA) 30 MG capsule nortriptyline (PAMELOR) 10 MG capsule Fibromyalgia Relevant Medications nortriptyline (PAMELOR) 10 MG capsule Exertional dyspnea - Primary Relevant Orders PFT spirometry with pre and post bronchodilator Healthcare maintenance For any new medications prescribed today, patient was educated about indications for the medication, how to take the medication, and potential side effects of the medication. My ongoing relationship with Latia Moody requires continued responsibility and cognitive effort of being the focal point for all services related to chronic condition(s). Return in about 3 months (around 03/30/2024) for Follow Up breathing and fibromyalgia. Jasmeet Sexton DO, MS Family Medicine, Osteopathic Manipulative Medicine, and Hospital Medicine [facility] 12/29/2023 Subjective Chief Complaint Patient presents with Shortness of Breath HPI After discussing the use of ambient listening and audio recording in generating medical documentation, the patient verbally consented to use of this technology for today's visit. History of Present Illness The patient is a 48-year-old female who presents today to discuss her shortness of breath. She reports experiencing difficulty in achieving full breaths, describing it as a heavy feeling. A few months ago, she was diagnosed with bronchial spasms by a nurse practitioner and was prescribed prednisone and albuterol. The prednisone provided relief, but the symptoms returned after discontinuation. She continues to use albuterol without noticing any improvement. Her symptoms fluctuate, sometimes severe, sometimes mild, and often worsen at night. She has not identified any specific allergens that trigger her symptoms. She has a history of illness-induced asthma, which typically flares up when she has congestion. Despite her breathing difficulties, she manages to walk with her granddaughter without exacerbating her symptoms. Her daily 30-minute walks have become challenging due to increased breathlessness. She finds relief from chest heaviness by lying down. She has no prior history of similar episodes. She also experiences leg swelling, which has recently become more painful. She is unable to sleep flat on her back due to pain in the sciatic area. She has been taking Cymbalta twice daily for the past two months but has not noticed any significant changes in her symptoms. She has been on progesterone therapy for 2 months with no results. She is considering a hysterectomy and has an appointment next week or the week after to discuss this with her doctor because of observed cellular changes. She has a history of cancer. She has had her mammogram and Pap smear. She has been sleeping well at night. She got sick with diverticulitis, which sometimes alters her sleep patterns. SOCIAL HISTORY She smoked a pack a day for 15 years and quit when she was 26. FAM (more content not included)... [facility] 12-29-2023 History of Presen t illness Narrative Assessment & Plan (Please note that this note was predominantly written using an AI-based voice recognition software. Efforts were made to correct any errors, but occasionally the software creates inaccuracies. Please reach out for any clarification.) Assessment & Plan 1. Exertional dyspnea. Symptoms suggest a possible bronchospasm, but albuterol has not been effective. The leg swelling appears to be more consistent with lymphedema rather than cardiac-related edema. Given her history of extensive allergies and illness-induced asthma, reactive airway disease is a potential diagnosis. However, her 15-year smoking history could also indicate COPD. Pulmonary function testing (PFT) will be conducted to further investigate the cause of her symptoms. If PFT results are normal, a low threshold for deciding on stress testing will be maintained. Stress testing is currently on hold as the symptoms do not appear to be cardiac-related. 2. Fibromyalgia, dysautonomia. The Cymbalta 30 mg twice daily regimen did not yield significant benefits. The dosage of Cymbalta will be reduced to once daily. Nortriptyline 10 mg will be introduced at nighttime to assess its effectiveness. It may take a few weeks to observe any changes. She will provide updates via [employer] in a couple of weeks regarding her tolerance to the new medication. Follow-up A follow-up visit is scheduled in 3 months. Diagnoses and all orders for this visit: Exertional dyspnea - PFT spirometry with pre and post bronchodilator; Future Dysautonomia-like disorder - DULoxetine (CYMBALTA) 30 MG capsule; Take 1 (one) capsule (30 mg total) by mouth daily . - nortriptyline (PAMELOR) 10 MG capsule; Take 1 (one) capsule (10 mg total) by mouth nightly . Fibromyalgia - nortriptyline (PAMELOR) 10 MG capsule; Take 1 (one) capsule (10 mg total) by mouth nightly . Healthcare maintenance Problem List Diagnosed Dysautonomia-like disorder Relevant Medications DULoxetine (CYMBALTA) 30 MG capsule nortriptyline (PAMELOR) 10 MG capsule Fibromyalgia Relevant Medications nortriptyline (PAMELOR) 10 MG capsule Exertional dyspnea - Primary Relevant Orders PFT spirometry with pre and post bronchodilator Healthcare maintenance For any new medications prescribed today, patient was educated about indications for the medication, how to take the medication, and potential side effects of the medication. My ongoing relationship with Latia Moody requires continued responsibility and cognitive effort of being the focal point for all services related to chronic condition(s). Return in about 3 months (around 03/30/2024) for Follow Up breathing and fibromyalgia. Jasmeet Sexton DO, MS Family Medicine, Osteopathic Manipulative Medicine, and Hospital Medicine [facility] 12/29/2023 Subjective Chief Complaint Patient presents with Shortness of Breath HPI After discussing the use of ambient listening and audio recording in generating medical documentation, the patient verbally consented to use of this technology for today's visit. History of Present Illness The patient is a 48-year-old female who presents today to discuss her shortness of breath. She reports experiencing difficulty in achieving full breaths, describing it as a heavy feeling. A few months ago, she was diagnosed with bronchial spasms by a nurse practitioner and was prescribed prednisone and albuterol. The prednisone provided relief, but the symptoms returned after discontinuation. She continues to use albuterol without noticing any improvement. Her symptoms fluctuate, sometimes severe, sometimes mild, and often worsen at night. She has not identified any specific allergens that trigger her symptoms. She has a history of illness-induced asthma, which typically flares up when she has congestion. Despite her breathing difficulties, she manages to walk with her granddaughter without exacerbating her symptoms. Her daily 30-minute walks have become challenging due to increased breathlessness. She finds relief from chest heaviness by lying down. She has no prior history of similar episodes. She also experiences leg swelling, which has recently become more painful. She is unable to sleep flat on her back due to pain in the sciatic area. She has been taking Cymbalta twice daily for the past two months but has not noticed any significant changes in her symptoms. She has been on progesterone therapy for 2 months with no results. She is considering a hysterectomy and has an appointment next week or the week after to discuss this with her doctor because of observed cellular changes. She has a history of cancer. She has had her mammogram and Pap smear. She has been sleeping well at night. She got sick with diverticulitis, which sometimes alters her sleep patterns. SOCIAL HISTORY She smoked a pack a day for 15 years and quit when she was 26. FAMILY HISTORY Her father had congestive heart failure. Her paternal grandfather of some kind of smoking-related illness. The following portions of the patient's history were reviewed and updated as appropriate: allergies, current medications, past family history, past medical history, past social history, past surgical history and problem list. Patient's Medications New Prescriptions NORTRIPTYLINE (PAMELOR) 10 MG CAPSULE Take 1 (one) capsule (10 mg total) by mouth nightly . Previous Medications CETIRIZINE (ZYRTEC) 10 MG TABLET 1 (one) tablet (10 mg total) every night at bedtime . DIPHENHYDRAMINE (BENADRYL) 25 MG CAPSULE Take 1 (one) capsule (25 mg total) by mouth as needed for itching . FAMOTIDINE (PEPCID) 40 MG TABLET Take 1 (one) tablet (40 mg total) by mouth daily . FEXOFENADINE (MAYELA) 180 MG TABLET Take 1 (one) tablet (180 mg total) by mouth daily . FOLIC ACID/MULTIVIT-MIN/LUTEIN (CENTRUM SILVER ORAL) Take by mouth . MAGNESIUM 30 MG TABLET Take 64 mg by mouth daily . OMEPRAZOLE (PRILOSEC) 40 MG CAPSULE 1 (one) capsule (40 mg total) daily . PROPYLENE GLYCOL (SYSTANE COMPLETE) 0.6 % DROP Apply 1 drop to eye 3 (three) times a day . Modified Medications Modified Medication Previous Medication DULOXETINE (CYMBALTA) 30 MG CAPSULE DULoxetine (CYMBALTA) 30 MG capsule Take 1 (one) capsule (30 mg total) by mouth daily . Take 1 (one) capsule (30 mg total) by mouth 2 (two) times a day . Discontinued Medications CIPROFLOXACIN HCL (CIPRO) 500 MG TABLET Take 1 (one) tablet (500 mg total) by mouth 2 (two) times a day . METRONIDAZOLE (FLAGYL) 500 MG TABLET Take 1 (one) tablet (500 mg total) by mouth 2 (two) times a day with meals . WHITE PETROLATUM-MINERAL OIL 94-3 % OINT Apply 1 Application to eye as needed . Review of Systems Objective Vitals: 12/29/23 1235 BP: 134/89 BP Location: Left arm Patient Position: Sitting BP Cuff Size: X-large Adult Pulse: 74 Resp: 17 Temp: 98.4 F (36.9 C) SpO2: 96% Weight: 96.3 kg (212 lb 3.2 oz) Height: 5' 2 Physical Exam Vitals and nursing note reviewed. Constitutional: General: She is not in acute distress. Appearance: Normal appearance. She is not ill-appearing, toxic-appearing or diaphoretic. HENT: Head: Normocephalic and atraumatic. Nose: No nasal deformity or signs of injury. Mouth/Throat: Lips: No lesions. Eyes: Extraocular Movements: Extraocular movements intact. Pulmonary: Effort: No tachypnea, bradypnea, accessory muscle usage, respiratory distress or retractions. Neurological: General: No focal deficit present. Mental Status: She is alert and oriented to person, place, and time. Motor: Motor function is intact. Coordination: Coordination is intact. Gait: Gait is intact. Psychiatric: Attention and Perception: Attention and perception normal. Mood and Affect: Mood and affect normal. Speech: Speech normal. Behavior: Behavior normal. Thought Content: Thought content normal. Cognition and Memory: Cognition and memory normal. Judgment: Judgment normal. Physical Exam Lungs are relatively clear. Heart sounds are normal. No murmurs or abnormal sounds. Rhythm is regular. Osteopathic Medical Exam OARRS/NARxCHECK Report Received and Assessed: No data found Date controlled substance agreement signed: No data found Date of last drug screen: No data found Functional Assessment: No data found Results PHQ9: Over the last 2 weeks, how often have you been bothered by any of the following problems? Little interest or pleasure in doing things: Not at all Feeling down, depressed, or hopeless: Not at all PHQ-2 Total Score: 0 Trouble falling or staying asleep, or sleeping too much: Several days Feeling tired or having little energy: Not at all Poor appetite or overeating: Several days Feeling bad about yourself - or that you are a failure or have let yourself or your family down: Several days Trouble concentrating on things, such as reading the newspaper or watching television: More than half the days Moving or speaking so slowly that other people could have noticed. Or the opposite - being so fidgety or restless that you have been moving around a lot more than usual: Not at all Thoughts that you would be better off , or of hurting yourself in some way: Not at all PHQ-9 Total Score: 5 If you checked off any problems, how difficult have these problems made it for you to do your work, take care of things at home, or get along with other people?: Not difficult at all ANDREW-7 Over the last 2 weeks, how often have you been bothered by the following problems? Feeling nervous, anxious or on edge: Not at all Not being able to stop or control worrying: Several days Worrying too much about different things: Not at all Trouble relaxing: Not at all Being so restless that it is hard to sit still: Not at all Becoming easily annoyed or irritable: Several days Feeling afraid as if something awful might happen: Several days ANDREW-7 Score: 3 (Please note that this note was predominantly written using an AI-based voice recognition software. Efforts were made to correct any errors, but occasionally the software creates inaccuracies. Please reach out for any clarification.) documented in this encounter [facility] 09-17-2023 Evaluation + Plan note Associated Problem(s): Rash and nonspecific skin eruption Possible bug bite noted on right side of neck, in early stages of healing with some irritation due to excoriation. No signs of cellulitis. Patient has been improving with topical hydrocortisone for the last few days. Advised her to continue this for now and continue monitoring. Precautions discussed. Advised against using topical corticosteroids for more than 2 weeks. [facility] 09-17-2023 Miscellaneous Notes Associate d Problem(s): Rash and nonspecific skin eruption Possible bug bite noted on right side of neck, in early stages of healing with some irritation due to excoriation. No signs of cellulitis. Patient has been improving with topical hydrocortisone for the last few days. Advised her to continue this for now and continue monitoring. Precautions discussed. Advised against using topical corticosteroids for more than 2 weeks. Associated Problem(s): Fibromyalgia Prior diagnosis, and patient improved with Cymbalta as well as gabapentin in the past. Per patient, gabapentin was discontinued due to reported liver issues. Attempting to obtain records from her prior electronics technician to confirm this. Otherwise, plan to increase Cymbalta to 60 mg daily. She wants to take this as a single dose for now, but advised that she may actually get more benefit out of twice daily dosing. Plan to follow-up in 3 months. Associated Problem(s): Dysautonomia-like disorder Patient's host of nonspecific symptoms with frequently normal testing, diagnoses of fibromyalgia, and functional GI issues, altogether raise suspicion for a dysautonomia like disorder. Educated patient on physiology of this. Increasing Cymbalta for fibromyalgia will likely be helpful. Will also obtain records from patient's prior electronics technician to get more information on her prior workup. Associated Problem(s): Chronic urticaria Very likely result of dysautonomia, especially with comorbid fibromyalgia and functional GI issues. Probably also being exacerbated by chronic use of NSAIDs. Present regimen includes Zyrtec 10 mg daily, and Mayela 60 mg twice daily. Very unlikely to be a true IgE mediated disease. Advised patient to discontinue Mobic, and we will instead increase her Cymbalta for pain as below. Plan to increase Mayela to 180 mg daily, while continuing Zyrtec. Also add on Pepcid. Discussed obtaining tryptase level during the time of her next flareup, order placed for the same as well as inflammatory markers. documented in this encounter [facility] 09-17-2023 Evaluation + Plan note Associated Problem(s): Fibromyalgia Prior diagnosis, and patient improved with Cymbalta as well as gabapentin in the past. Per patient, gabapentin was discontinued due to reported liver issues. Attempting to obtain records from her prior electronics technician to confirm this. Otherwise, plan to increase Cymbalta to 60 mg daily. She wants to take this as a single dose for now, but advised that she may actually get more benefit out of twice daily dosing. Plan to follow-up in 3 months. [facility] 09-17-2023 Evaluation + Plan note Associated Problem(s): Dysautonomia-like disorder Patient's host of nonspecific symptoms with frequently normal testing, diagnoses of fibromyalgia, and functional GI issues, altogether raise suspicion for a dysautonomia like disorder. Educated patient on physiology of this. Increasing Cymbalta for fibromyalgia will likely be helpful. Will also obtain records from patient's prior electronics technician to get more information on her prior workup. [facility] 09-17-2023 Evaluation + Plan note Associated Problem(s): Chronic urticaria Very likely result of dysautonomia, especially with comorbid fibromyalgia and functional GI issues. Probably also being exacerbated by chronic use of NSAIDs. Present regimen includes Zyrtec 10 mg daily, and Mayela 60 mg twice daily. Very unlikely to be a true IgE mediated disease. Advised patient to discontinue Mobic, and we will instead increase her Cymbalta for pain as below. Plan to increase Mayela to 180 mg daily, while continuing Zyrtec. Also add on Pepcid. Discussed obtaining tryptase level during the time of her next flareup, order placed for the same as well as inflammatory markers. [facility] 09-17-2023 Note Assessment & Plan Problem List Chronic urticaria - Primary Very likely result of dysautonomia, especially with comorbid fibromyalgia and functional GI issues. Probably also being exacerbated by chronic use of NSAIDs. Present regimen includes Zyrtec 10 mg daily, and Mayela 60 mg twice daily. Very unlikely to be a true IgE mediated disease. Advised patient to discontinue Mobic, and we will instead increase her Cymbalta for pain as below. Plan to increase Mayela to 180 mg daily, while continuing Zyrtec. Also add on Pepcid. Discussed obtaining tryptase level during the time of her next flareup, order placed for the same as well as inflammatory markers. Relevant Medications fexofenadine (MAYELA) 180 MG tablet famotidine (PEPCID) 40 MG tablet Other Relevant Orders Tryptase CRP, Inflammation Sedimentation Rate Dysautonomia-like disorder Patient's host of nonspecific symptoms with frequently normal testing, diagnoses of fibromyalgia, and functional GI issues, altogether raise suspicion for a dysautonomia like disorder. Educated patient on physiology of this. Increasing Cymbalta for fibromyalgia will likely be helpful. Will also obtain records from patient's prior electronics technician to get more information on her prior workup. Relevant Medications DULoxetine (CYMBALTA) 30 MG capsule Fibromyalgia Prior diagnosis, and patient improved with Cymbalta as well as gabapentin in the past. Per patient, gabapentin was discontinued due to reported liver issues. Attempting to obtain records from her prior electronics technician to confirm this. Otherwise, plan to increase Cymbalta to 60 mg daily. She wants to take this as a single dose for now, but advised that she may actually get more benefit out of twice daily dosing. Plan to follow-up in 3 months. Rash and nonspecific skin eruption Possible bug bite noted on right side of neck, in early stages of healing with some irritation due to excoriation. No signs of cellulitis. Patient has been improving with topical hydrocortisone for the last few days. Advised her to continue this for now and continue monitoring. Precautions discussed. Advised against using topical corticosteroids for more than 2 weeks. For any new medications prescribed today, patient was educated about indications for the medication, how to take the medication, and potential side effects of the medication. I am managing Latia Moody for complex chronic condition(s) serving as the focal point for the patient's care for consistency and continuity over time. Return in about 3 months (around 12/18/2023) for Annual Exam. Jasmeet Sexton DO, MS Family Medicine, Osteopathic Manipulative Medicine, and Hospital Medicine [facility] 09/17/2023 Subjective Chief Complaint Patient presents with [facility] Care HPI After discussing the use of ambient listening and audio recording in generating medical documentation, the patient verbally consented to use of this technology for today's visit. History of Present Illness The patient is a new patient who presents for evaluation of multiple medical concerns. She voices that her daughter is also one of my patients. The patient reports experiencing hives several times a week, predominantly at bedtime, which she believes are triggered by heat exposure. These hives, which she describes as heat hives, often result in body soreness from head to toe after bathing or hiking, necessitating being under A/C for relief. She is currently on multiple allergy medications, including Zyrtec and Mayela, which provide some relief, but nothing works as well as Benadryl; her concern with Benadryl is that it seems to worsen her restless legs. She also uses a cooling histamine spray, which occasionally provides relief. The patient believes she would have experienced hives more during periods of stress with her 5 children, but currently feels well. She expresses frustration over her frequent illness. The patient states that she experiences constant inflammation, evidenced by her taking approximately an hour to regain normal mobility in the morning. She reports shaking in her hands during writing, pain in all her joints in her wrists, neck, and lower back, and is considering hip replacement surgery. She has a history of elevated sedimentation rate and has been treated for Rheumatoid Arthritis (RA) for over [address] Kerr. Despite multiple tests, she was later informed that she did not have RA. She was prescribed Cymbalta and gabapentin, which proved effective, but gabapentin was later discontinued due to potential liver damage. She was also prescribed pain relievers and narcotics, which were not effective for nerve pain. A pain specialist prescribed a pain patch, which she discontinued due to adverse side effect symptoms. She does report that she has been diagnosed with fibromyalgia. The patient has been on omeprazole (more content not included)... [facility] 09-17-2023 History of Presen t illness Narrative Assessment & Plan Problem List Chronic urticaria - Primary Very likely result of dysautonomia, especially with comorbid fibromyalgia and functional GI issues. Probably also being exacerbated by chronic use of NSAIDs. Present regimen includes Zyrtec 10 mg daily, and Mayela 60 mg twice daily. Very unlikely to be a true IgE mediated disease. Advised patient to discontinue Mobic, and we will instead increase her Cymbalta for pain as below. Plan to increase Mayela to 180 mg daily, while continuing Zyrtec. Also add on Pepcid. Discussed obtaining tryptase level during the time of her next flareup, order placed for the same as well as inflammatory markers. Relevant Medications fexofenadine (MAYELA) 180 MG tablet famotidine (PEPCID) 40 MG tablet Other Relevant Orders Tryptase CRP, Inflammation Sedimentation Rate Dysautonomia-like disorder Patient's host of nonspecific symptoms with frequently normal testing, diagnoses of fibromyalgia, and functional GI issues, altogether raise suspicion for a dysautonomia like disorder. Educated patient on physiology of this. Increasing Cymbalta for fibromyalgia will likely be helpful. Will also obtain records from patient's prior electronics technician to get more information on her prior workup. Relevant Medications DULoxetine (CYMBALTA) 30 MG capsule Fibromyalgia Prior diagnosis, and patient improved with Cymbalta as well as gabapentin in the past. Per patient, gabapentin was discontinued due to reported liver issues. Attempting to obtain records from her prior electronics technician to confirm this. Otherwise, plan to increase Cymbalta to 60 mg daily. She wants to take this as a single dose for now, but advised that she may actually get more benefit out of twice daily dosing. Plan to follow-up in 3 months. Rash and nonspecific skin eruption Possible bug bite noted on right side of neck, in early stages of healing with some irritation due to excoriation. No signs of cellulitis. Patient has been improving with topical hydrocortisone for the last few days. Advised her to continue this for now and continue monitoring. Precautions discussed. Advised against using topical corticosteroids for more than 2 weeks. For any new medications prescribed today, patient was educated about indications for the medication, how to take the medication, and potential side effects of the medication. I am managing Latia Moody for complex chronic condition(s) serving as the focal point for the patient's care for consistency and continuity over time. Return in about 3 months (around 12/18/2023) for Annual Exam. Jasmeet Sexton DO, MS Family Medicine, Osteopathic Manipulative Medicine, and Hospital Medicine [facility] 09/17/2023 Subjective Chief Complaint Patient presents with [facility] Care HPI After discussing the use of ambient listening and audio recording in generating medical documentation, the patient verbally consented to use of this technology for today's visit. History of Present Illness The patient is a new patient who presents for evaluation of multiple medical concerns. She voices that her daughter is also one of my patients. The patient reports experiencing hives several times a week, predominantly at bedtime, which she believes are triggered by heat exposure. These hives, which she describes as heat hives, often result in body soreness from head to toe after bathing or hiking, necessitating being under A/C for relief. She is currently on multiple allergy medications, including Zyrtec and Mayela, which provide some relief, but nothing works as well as Benadryl; her concern with Benadryl is that it seems to worsen her restless legs. She also uses a cooling histamine spray, which occasionally provides relief. The patient believes she would have experienced hives more during periods of stress with her 5 children, but currently feels well. She expresses frustration over her frequent illness. The patient states that she experiences constant inflammation, evidenced by her taking approximately an hour to regain normal mobility in the morning. She reports shaking in her hands during writing, pain in all her joints in her wrists, neck, and lower back, and is considering hip replacement surgery. She has a history of elevated sedimentation rate and has been treated for Rheumatoid Arthritis (RA) for over [address] Kerr. Despite multiple tests, she was later informed that she did not have RA. She was prescribed Cymbalta and gabapentin, which proved effective, but gabapentin was later discontinued due to potential liver damage. She was also prescribed pain relievers and narcotics, which were not effective for nerve pain. A pain specialist prescribed a pain patch, which she discontinued due to adverse side effect symptoms. She does report that she has been diagnosed with fibromyalgia. The patient has been on omeprazole for acid reflux since she was 14 years old. She also takes Gaviscon at night. She has been trying to lose weight, eating once a day, and has lost 30 pounds through intermittent fasting. She reports less reflux symptoms when lying down. She experiences breakthrough reflux during sleep, and occasionally feels like she might be aspirating it. She underwent an upper GI procedure in the past, but was informed that the procedure probably should not be repeated as she had severe pain after she woke up from anesthesia. She was informed that her symptoms were due to nerve ending issues. The patient contracted COVID-19 in 2019. She is currently on a regimen of vitamins. Prior to end of appointment, patient then mentioned a possible bug bite on her neck on the right side, which was sustained a few days ago. She has been putting hydrocortisone on it for the itchiness, and feels that it is improving, but wants to make sure it is okay. Supplemental Information She takes Mobic every day. Her hands shake when she writes. She can not defecate anymore. She has pain in her wrists, neck and lower back. Her sister has RA. The following portions of the patient's history were reviewed and updated as appropriate: allergies, current medications, past family history, past medical history, past social history, past surgical history and problem list. Patient's Medications New Prescriptions DULOXETINE (CYMBALTA) 30 MG CAPSULE Take 1 (one) capsule (30 mg total) by mouth 2 (two) times a day . FAMOTIDINE (PEPCID) 40 MG TABLET Take 1 (one) tablet (40 mg total) by mouth daily . FEXOFENADINE (MAYELA) 180 MG TABLET Take 1 (one) tablet (180 mg total) by mouth daily . Previous Medications CETIRIZINE (ZYRTEC) 10 MG TABLET 1 (one) tablet (10 mg total) every night at bedtime . DIPHENHYDRAMINE (BENADRYL) 25 MG CAPSULE Take 1 (one) capsule (25 mg total) by mouth as needed for itching . FOLIC ACID/MULTIVIT-MIN/LUTEIN (CENTRUM SILVER ORAL) Take by mouth . MAGNESIUM 30 MG TABLET Take 64 mg by mouth daily . OMEPRAZOLE (PRILOSEC) 40 MG CAPSULE 1 (one) capsule (40 mg total) daily . PROPYLENE GLYCOL (SYSTANE COMPLETE) 0.6 % DROP Apply 1 drop to eye 3 (three) times a day . WHITE PETROLATUM-MINERAL OIL 94-3 % OINT Apply 1 Application to eye as needed . Modified Medications No medications on file Discontinued Medications DULOXETINE (CYMBALTA) 20 MG CAPSULE Take 30 mg by mouth daily . FEXOFENADINE (MAYELA) 60 MG TABLET Take 1 (one) tablet (60 mg total) by mouth daily . MELOXICAM (MOBIC) 15 MG TABLET Review of Systems Objective Vitals: 09/17/23 1122 BP: 131/86 BP Location: Left arm Patient Position: Sitting BP Cuff Size: X-large Adult Pulse: 83 Resp: 17 Temp: 98.5 F (36.9 C) TempSrc: Temporal SpO2: 95% Weight: 95.3 kg (210 lb) Height: 5' 2 Physical Exam Vitals and nursing note reviewed. Constitutional: General: She is not in acute distress. Appearance: Normal appearance. She is not ill-appearing, toxic-appearing or diaphoretic. HENT: Head: Normocephalic and atraumatic. Nose: No nasal deformity or signs of injury. Mouth/Throat: Lips: No lesions. Eyes: Extraocular Movements: Extraocular movements intact. Pulmonary: Effort: No tachypnea, bradypnea, accessory muscle usage, respiratory distress or retractions. Skin: Findings: Rash (Possible bug bite on right side of neck under angle of mandible, with some surrounding excoriation, no signs of cellulitis, wound scabbed over and early stage of healing) present. Neurological: General: No focal deficit present. Mental Status: She is alert and oriented to person, place, and time. Motor: Motor function is intact. Coordination: Coordination is intact. Gait: Gait is intact. Psychiatric: Attention and Perception: Attention and perception normal. Mood and Affect: Mood and affect normal. Speech: Speech normal. Behavior: Behavior normal. Thought Content: Thought content normal. Cognition and Memory: Cognition and memory normal. Judgment: Judgment normal. Physical Exam Osteopathic Medical Exam PHQ9: [id number] (Please note that portions of this note have been completed with a voice recognition software. Efforts were made to correct any errors, but occasionally words are mis-transcribed.) documented in this encounter [facility] Evaluation note Diagnosis Chronic urticaria- Primary Other specified urticaria Dysautonomia-like disorder Fibromyalgia Unspecified myalgia and myositis Rash and nonspecific skin eruption Rash and other nonspecific skin eruption [facility] Exertional dyspnea- Primary Other dyspnea and respiratory abnormality Dysautonomia-like disorder Fibromyalgia Unspecified myalgia and myositis [facility] Details Patient Instructions Indication:Right flank pain Start:30-Aug-2020 Instruction Type:Provider Instructions for Treatment How to Access Health Informa tion Online using Patient Portal and [employer] Apps Indication:Right flank pain Start:30-Aug-2020 Instruction Type:Patient Education How to Access Health Informa tion Online using Patient Portal and [employer] Apps Indication:Nonsmoker Start:21-Jun-2020 Instruction Type:Patient Education Patient Instructions Indication:Nonsmoker Start:21-Jun-2020 Instruction Type:Provider Instructions for Treatment How to access health informa tion online Indication:BMI 40.0-44.9, adult Start:16-Mar-2020 Instruction Type:Patient Education How to access health informa tion online - Detail Indication:BMI 40.0-44.9, adult Start:16-Mar-2020 Instruction Type:Patient Education Patient Instructions Indication:BMI 40.0-44.9, adult Start:16-Mar-2020 Instruction Type:Provider Instructions for Treatment How to access health informa tion online Indication:Obesity, morbid, BMI 40.0-49.9 Start:24-Jan-2020 Instruction Type:Patient Education How to access health informa tion online - Detail Indication:Obesity, morbid, BMI 40.0-49.9 Start:24-Jan-2020 Instruction Type:Patient Education Patient Instructions Indication:Obesity, morbid, BMI 40.0-49.9 Start:24-Jan-2020 Instruction Type:Provider Instructions for Treatment How to access health informa tion online Indication:Nonsmoker Start:05-Dec-2019 Instruction Type:Patient Education How to access health informa tion online - Detail Indication:Nonsmoker Start:05-Dec-2019 Instruction Type:Patient Education Patient Instructions Indication:Nonsmoker Start:05-Dec-2019 Instruction Type:Provider Instructions for Treatment How to access health informa tion online Indication:Sore throat Start:23-Mar-2019 Instruction Type:Patient Education How to access health informa tion online - Detail Indication:Sore throat Start:23-Mar-2019 Instruction Type:Patient Education Patient Instructions Indication:Sore throat Start:23-Mar-2019 Instruction Type:Provider Instructions for Treatment How to access health informa tion online Indication:Nonsmoker Start:02-Mar-2019 Instruction Type:Patient Education How to access health informa tion online - Detail Indication:Nonsmoker Start:02-Mar-2019 Instruction Type:Patient Education Patient Instructions Indication:Nonsmoker Start:02-Mar-2019 Instruction Type:Provider Instructions for Treatment Patient Instructions Indication:Upper respiratory infection, viral Start:18-Oct-2018 Instruction Type:Provider Instructions for Treatment How to access health informa tion online Indication:Nonsmoker Start:18-Oct-2018 Instruction Type:Patient Education How to access health informa tion online - Detail Indication:Nonsmoker Start:18-Oct-2018 Instruction Type:Patient Education How to access health informa tion online Indication:BMI 40.0-44.9, adult Start:05-May-2018 Instruction Type:Patient Education How to access health informa tion online - Detail Indication:BMI 40.0-44.9, adult Start:05-May-2018 Instruction Type:Patient Education Patient Instructions Indication:BMI 40.0-44.9, adult Start:05-May-2018 Instruction Type:Provider Instructions for Treatment How to access health informa tion online Indication:Nonsmoker Start:23-Feb-2018 Instruction Type:Patient Education How to access health informa tion online - Detail Indication:Nonsmoker Start:23-Feb-2018 Instruction Type:Patient Education Patient Instructions Indication:Nonsmoker Start:23-Feb-2018 Instruction Type:Provider Instructions for Treatment How to access health informa tion online Indication:BMI 40.0-44.9, adult Start:15-Feb-2018 Instruction Type:Patient Education How to access health informa tion online - Detail Indication:BMI 40.0-44.9, adult Start:15-Feb-2018 Instruction Type:Patient Education Patient Instructions Indication:Decreased range of motion of left lower extremity Start:15-Feb-2018 Instruction Type:Provider Instructions for Treatment How to access health informa tion online Indication:BMI 40.0-44.9, adult Start:14-Dec-2017 Instruction Type:Patient Education How to access health informa tion online - Detail Indication:BMI 40.0-44.9, adult Start:14-Dec-2017 Instruction Type:Patient Education Patient Instructions Indication:BMI 40.0-44.9, adult Start:14-Dec-2017 Instruction Type:Provider Instructions for Treatment How to access health informa tion online Indication:BMI 40.0-44.9, adult Start:11-Aug-2017 Instruction Type:Patient Education How to access health informa tion online - Detail Indication:BMI 40.0-44.9, adult Start:11-Aug-2017 Instruction Type:Patient Education Patient Instructions Indication:Acute asthma exacerbation (Renamed from Asthma with acute exacerbation) Start:11-Aug-2017 Instruction Type:Provider Instructions for Treatment How to access health informa tion online Indication:BMI 40.0-44.9, adult Start:10-Aug-2017 Instruction Type:Patient Education How to access health informa tion online - Detail Indication:BMI 40.0-44.9, adult Start:10-Aug-2017 Instruction Type:Patient Education Patient Instructions Indication:Acute asthma exacerbation (Renamed from Asthma with acute exacerbation) Start:10-Aug-2017 Instruction Type:Provider Instructions for Treatment How to access health informa tion online Indication:Cough Start:05-Aug-2017 Instruction Type:Patient Education How to access health informa tion online - Detail Indication:Cough Start:05-Aug-2017 Instruction Type:Patient Education Patient Instructions Indication:Cough Start:05-Aug-2017 Instruction Type:Provider Instructions for Treatment DISCONTINUED - LIPID PANEL ( [id number]) Indication:SCREENING FOR HYPERLIPIDEMIA (Renamed from Encounter for screening for lipoid disorders) Start:06-May-2017 Instruction Type:Patient Education How to access health informa tion online Indication:Sinus pressure Start:06-May-2017 Instruction Type:Patient Education How to access health informa tion online - Detail Indication:Sinus pressure Start:06-May-2017 Instruction Type:Patient Education Patient Instructions Indication:Sinus pressure Start:06-May-2017 Instruction Type:Provider Instructions for Treatment How to access health informa tion online Indication:Flu-like symptoms Start:30-Mar-2017 Instruction Type:Patient Education How to access health informa tion online - Detail Indication:Flu-like symptoms Start:30-Mar-2017 Instruction Type:Patient Education Patient Instructions Indication:Flu-like symptoms Start:30-Mar-2017 Instruction Type:Provider Instructions for Treatment How to access health informa tion online Indication:Low back pain potentially associated with radiculopathy Start:02-Nov-2015 Instruction Type:Patient Education How to access health informa tion online - Detail Indication:Low back pain potentially associated with radiculopathy Start:02-Nov-2015 Instruction Type:Patient Education Patient Instructions Indication:Low back pain potentially associated with radiculopathy Start:02-Nov-2015 Instruction Type:Provider Instructions for Treatment How to access health informa tion online Indication:Wheezing (Renamed from Asthmatic breathing) Start:23-Jan-2014 Instruction Type:Patient Education How to access health informa tion online - Detail Indication:Wheezing (Renamed from Asthmatic breathing) Start:23-Jan-2014 Instruction Type:Patient Education Patient Instructions Indication:Wheezing (Renamed from Asthmatic breathing) Start:23-Jan-2014 Instruction Type:Provider Instructions for Treatment How to access health informa tion online Indication:Breast pain Start:12-Jan-2014 Instruction Type:Patient Education How to access health informa tion online - Detail Indication:Breast pain Start:12-Jan-2014 Instruction Type:Patient Education Patient Instructions Indication:Breast pain Start:12-Jan-2014 Instruction Type:Provider Instructions for Treatment Patient Instructions Indication:Acid reflux Start:31-Aug-2013 Instruction Type:Provider Instructions for Treatment [facility]; [facility] Work Phone: Instructions* Name Dates Details Patient Instructions Indication:Right flank pain Start:30-Aug-2020 Instruction Type:Provider Instructions for Treatment How to Access Health Informa tion Online using Patient Portal and [employer] Apps Indication:Right flank pain Start:30-Aug-2020 Instruction Type:Patient Education How to Access Health Informa tion Online using Patient Portal and [employer] Apps Indication:Nonsmoker Start:21-Jun-2020 Instruction Type:Patient Education Patient Instructions Indication:Nonsmoker Start:21-Jun-2020 Instruction Type:Provider Instructions for Treatment How to access health informa tion online Indication:BMI 40.0-44.9, adult Start:16-Mar-2020 Instruction Type:Patient Education How to access health informa tion online - Detail Indication:BMI 40.0-44.9, adult Start:16-Mar-2020 Instruction Type:Patient Education Patient Instructions Indication:BMI 40.0-44.9, adult Start:16-Mar-2020 Instruction Type:Provider Instructions for Treatment How to access health informa tion online Indication:Obesity, morbid, BMI 40.0-49.9 Start:24-Jan-2020 Instruction Type:Patient Education How to access health informa tion online - Detail Indication:Obesity, morbid, BMI 40.0-49.9 Start:24-Jan-2020 Instruction Type:Patient Education Patient Instructions Indication:Obesity, morbid, BMI 40.0-49.9 Start:24-Jan-2020 Instruction Type:Provider Instructions for Treatment How to access health informa tion online Indication:Nonsmoker Start:05-Dec-2019 Instruction Type:Patient Education How to access health informa tion online - Detail Indication:Nonsmoker Start:05-Dec-2019 Instruction Type:Patient Education Patient Instructions Indication:Nonsmoker Start:05-Dec-2019 Instruction Type:Provider Instructions for Treatment How to access health informa tion online Indication:Sore throat Start:23-Mar-2019 Instruction Type:Patient Education How to access health informa tion online - Detail Indication:Sore throat Start:23-Mar-2019 Instruction Type:Patient Education Patient Instructions Indication:Sore throat Start:23-Mar-2019 Instruction Type:Provider Instructions for Treatment How to access health informa tion online Indication:Nonsmoker Start:02-Mar-2019 Instruction Type:Patient Education How to access health informa tion online - Detail Indication:Nonsmoker Start:02-Mar-2019 Instruction Type:Patient Education Patient Instructions Indication:Nonsmoker Start:02-Mar-2019 Instruction Type:Provider Instructions for Treatment Patient Instructions Indication:Upper respiratory infection, viral Start:18-Oct-2018 Instruction Type:Provider Instructions for Treatment How to access health informa tion online Indication:Nonsmoker Start:18-Oct-2018 Instruction Type:Patient Education How to access health informa tion online - Detail Indication:Nonsmoker Start:18-Oct-2018 Instruction Type:Patient Education How to access health informa tion online Indication:BMI 40.0-44.9, adult Start:05-May-2018 Instruction Type:Patient Education How to access health informa tion online - Detail Indication:BMI 40.0-44.9, adult Start:05-May-2018 Instruction Type:Patient Education Patient Instructions Indication:BMI 40.0-44.9, adult Start:05-May-2018 Instruction Type:Provider Instructions for Treatment How to access health informa tion online Indication:Nonsmoker Start:23-Feb-2018 Instruction Type:Patient Education How to access health informa tion online - Detail Indication:Nonsmoker Start:23-Feb-2018 Instruction Type:Patient Education Patient Instructions Indication:Nonsmoker Start:23-Feb-2018 Instruction Type:Provider Instructions for Treatment How to access health informa tion online Indication:BMI 40.0-44.9, adult Start:15-Feb-2018 Instruction Type:Patient Education How to access health informa tion online - Detail Indication:BMI 40.0-44.9, adult Start:15-Feb-2018 Instruction Type:Patient Education Patient Instructions Indication:Decreased range of motion of left lower extremity Start:15-Feb-2018 Instruction Type:Provider Instructions for Treatment How to access health informa tion online Indication:BMI 40.0-44.9, adult Start:14-Dec-2017 Instruction Type:Patient Education How to access health informa tion online - Detail Indication:BMI 40.0-44.9, adult Start:14-Dec-2017 Instruction Type:Patient Education Patient Instructions Indication:BMI 40.0-44.9, adult Start:14-Dec-2017 Instruction Type:Provider Instructions for Treatment How to access health informa tion online Indication:BMI 40.0-44.9, adult Start:11-Aug-2017 Instruction Type:Patient Education How to access health informa tion online - Detail Indication:BMI 40.0-44.9, adult Start:11-Aug-2017 Instruction Type:Patient Education Patient Instructions Indication:Acute asthma exacerbation (Renamed from Asthma with acute exacerbation) Start:11-Aug-2017 Instruction Type:Provider Instructions for Treatment How to access health informa tion online Indication:BMI 40.0-44.9, adult Start:10-Aug-2017 Instruction Type:Patient Education How to access health informa tion online - Detail Indication:BMI 40.0-44.9, adult Start:10-Aug-2017 Instruction Type:Patient Education Patient Instructions Indication:Acute asthma exacerbation (Renamed from Asthma with acute exacerbation) Start:10-Aug-2017 Instruction Type:Provider Instructions for Treatment How to access health informa tion online Indication:Cough Start:05-Aug-2017 Instruction Type:Patient Education How to access health informa tion online - Detail Indication:Cough Start:05-Aug-2017 Instruction Type:Patient Education Patient Instructions Indication:Cough Start:05-Aug-2017 Instruction Type:Provider Instructions for Treatment DISCONTINUED - LIPID PANEL ( [id number]) Indication:SCREENING FOR HYPERLIPIDEMIA (Renamed from Encounter for screening for lipoid disorders) Start:06-May-2017 Instruction Type:Patient Education How to access health informa tion online Indication:Sinus pressure Start:06-May-2017 Instruction Type:Patient Education How to access health informa tion online - Detail Indication:Sinus pressure Start:06-May-2017 Instruction Type:Patient Education Patient Instructions Indication:Sinus pressure Start:06-May-2017 Instruction Type:Provider Instructions for Treatment How to access health informa tion online Indication:Flu-like symptoms Start:30-Mar-2017 Instruction Type:Patient Education How to access health informa tion online - Detail Indication:Flu-like symptoms Start:30-Mar-2017 Instruction Type:Patient Education Patient Instructions Indication:Flu-like symptoms Start:30-Mar-2017 Instruction Type:Provider Instructions for Treatment How to access health informa tion online Indication:Low back pain potentially associated with radiculopathy Start:02-Nov-2015 Instruction Type:Patient Education How to access health informa tion online - Detail Indication:Low back pain potentially associated with radiculopathy Start:02-Nov-2015 Instruction Type:Patient Education Patient Instructions Indication:Low back pain potentially associated with radiculopathy Start:02-Nov-2015 Instruction Type:Provider Instructions for Treatment How to access health informa tion online Indication:Wheezing (Renamed from Asthmatic breathing) Start:23-Jan-2014 Instruction Type:Patient Education How to access health informa tion online - Detail Indication:Wheezing (Renamed from Asthmatic breathing) Start:23-Jan-2014 Instruction Type:Patient Education Patient Instructions Indication:Wheezing (Renamed from Asthmatic breathing) Start:23-Jan-2014 Instruction Type:Provider Instructions for Treatment How to access health informa tion online Indication:Breast pain Start:12-Jan-2014 Instruction Type:Patient Education How to access health informa tion online - Detail Indication:Breast pain Start:12-Jan-2014 Instruction Type:Patient Education Patient Instructions Indication:Breast pain Start:12-Jan-2014 Instruction Type:Provider Instructions for Treatment Patient Instructions Indication:Acid reflux Start:31-Aug-2013 Instruction Type:Provider Instructions for Treatment [facility]; [facility] Work Phone: Instructions* Name Dates Details Patient Instructions Indication:Non-smoker Start:11-Jan-2021 Instruction Type:Provider Instructions for Treatment How to Access Health Informa tion Online using Patient Portal and [employer] Apps Indication:Non-smoker Start:11-Jan-2021 Instruction Type:Patient Education Patient Instructions Indication:Right flank pain Start:30-Aug-2020 Instruction Type:Provider Instructions for Treatment How to Access Health Informa tion Online using Patient Portal and [employer] Apps Indication:Right flank pain Start:30-Aug-2020 Instruction Type:Patient Education How to Access Health Informa tion Online using Patient Portal and [employer] Apps Indication:Nonsmoker Start:21-Jun-2020 Instruction Type:Patient Education Patient Instructions Indication:Nonsmoker Start:21-Jun-2020 Instruction Type:Provider Instructions for Treatment How to access health informa tion online Indication:BMI 40.0-44.9, adult Start:16-Mar-2020 Instruction Type:Patient Education How to access health informa tion online - Detail Indication:BMI 40.0-44.9, adult Start:16-Mar-2020 Instruction Type:Patient Education Patient Instructions Indication:BMI 40.0-44.9, adult Start:16-Mar-2020 Instruction Type:Provider Instructions for Treatment How to access health informa tion online Indication:Obesity, morbid, BMI 40.0-49.9 Start:24-Jan-2020 Instruction Type:Patient Education How to access health informa tion online - Detail Indication:Obesity, morbid, BMI 40.0-49.9 Start:24-Jan-2020 Instruction Type:Patient Education Patient Instructions Indication:Obesity, morbid, BMI 40.0-49.9 Start:24-Jan-2020 Instruction Type:Provider Instructions for Treatment How to access health informa tion online Indication:Nonsmoker Start:05-Dec-2019 Instruction Type:Patient Education How to access health informa tion online - Detail Indication:Nonsmoker Start:05-Dec-2019 Instruction Type:Patient Education Patient Instructions Indication:Nonsmoker Start:05-Dec-2019 Instruction Type:Provider Instructions for Treatment How to access health informa tion online Indication:Sore throat Start:23-Mar-2019 Instruction Type:Patient Education How to access health informa tion online - Detail Indication:Sore throat Start:23-Mar-2019 Instruction Type:Patient Education Patient Instructions Indication:Sore throat Start:23-Mar-2019 Instruction Type:Provider Instructions for Treatment How to access health informa tion online Indication:Nonsmoker Start:02-Mar-2019 Instruction Type:Patient Education How to access health informa tion online - Detail Indication:Nonsmoker Start:02-Mar-2019 Instruction Type:Patient Education Patient Instructions Indication:Nonsmoker Start:02-Mar-2019 Instruction Type:Provider Instructions for Treatment Patient Instructions Indication:Upper respiratory infection, viral Start:18-Oct-2018 Instruction Type:Provider Instructions for Treatment How to access health informa tion online Indication:Nonsmoker Start:18-Oct-2018 Instruction Type:Patient Education How to access health informa tion online - Detail Indication:Nonsmoker Start:18-Oct-2018 Instruction Type:Patient Education How to access health informa tion online Indication:BMI 40.0-44.9, adult Start:05-May-2018 Instruction Type:Patient Education How to access health informa tion online - Detail Indication:BMI 40.0-44.9, adult Start:05-May-2018 Instruction Type:Patient Education Patient Instructions Indication:BMI 40.0-44.9, adult Start:05-May-2018 Instruction Type:Provider Instructions for Treatment How to access health informa tion online Indication:Nonsmoker Start:23-Feb-2018 Instruction Type:Patient Education How to access health informa tion online - Detail Indication:Nonsmoker Start:23-Feb-2018 Instruction Type:Patient Education Patient Instructions Indication:Nonsmoker Start:23-Feb-2018 Instruction Type:Provider Instructions for Treatment How to access health informa tion online Indication:BMI 40.0-44.9, adult Start:15-Feb-2018 Instruction Type:Patient Education How to access health informa tion online - Detail Indication:BMI 40.0-44.9, adult Start:15-Feb-2018 Instruction Type:Patient Education Patient Instructions Indication:Decreased range of motion of left lower extremity Start:15-Feb-2018 Instruction Type:Provider Instructions for Treatment How to access health informa tion online Indication:BMI 40.0-44.9, adult Start:14-Dec-2017 Instruction Type:Patient Education How to access health informa tion online - Detail Indication:BMI 40.0-44.9, adult Start:14-Dec-2017 Instruction Type:Patient Education Patient Instructions Indication:BMI 40.0-44.9, adult Start:14-Dec-2017 Instruction Type:Provider Instructions for Treatment How to access health informa tion online Indication:BMI 40.0-44.9, adult Start:11-Aug-2017 Instruction Type:Patient Education How to access health informa tion online - Detail Indication:BMI 40.0-44.9, adult Start:11-Aug-2017 Instruction Type:Patient Education Patient Instructions Indication:Acute asthma exacerbation (Renamed from Asthma with acute exacerbation) Start:11-Aug-2017 Instruction Type:Provider Instructions for Treatment How to access health informa tion online Indication:BMI 40.0-44.9, adult Start:10-Aug-2017 Instruction Type:Patient Education How to access health informa tion online - Detail Indication:BMI 40.0-44.9, adult Start:10-Aug-2017 Instruction Type:Patient Education Patient Instructions Indication:Acute asthma exacerbation (Renamed from Asthma with acute exacerbation) Start:10-Aug-2017 Instruction Type:Provider Instructions for Treatment How to access health informa tion online Indication:Cough Start:05-Aug-2017 Instruction Type:Patient Education How to access health informa tion online - Detail Indication:Cough Start:05-Aug-2017 Instruction Type:Patient Education Patient Instructions Indication:Cough Start:05-Aug-2017 Instruction Type:Provider Instructions for Treatment DISCONTINUED - LIPID PANEL ( [id number]) Indication:SCREENING FOR HYPERLIPIDEMIA (Renamed from Encounter for screening for lipoid disorders) Start:06-May-2017 Instruction Type:Patient Education How to access health informa tion online Indication:Sinus pressure Start:06-May-2017 Instruction Type:Patient Education How to access health informa tion online - Detail Indication:Sinus pressure Start:06-May-2017 Instruction Type:Patient Education Patient Instructions Indication:Sinus pressure Start:06-May-2017 Instruction Type:Provider Instructions for Treatment How to access health informa tion online Indication:Flu-like symptoms Start:30-Mar-2017 Instruction Type:Patient Education How to access health informa tion online - Detail Indication:Flu-like symptoms Start:30-Mar-2017 Instruction Type:Patient Education Patient Instructions Indication:Flu-like symptoms Start:30-Mar-2017 Instruction Type:Provider Instructions for Treatment How to access health informa tion online Indication:Low back pain potentially associated with radiculopathy Start:02-Nov-2015 Instruction Type:Patient Education How to access health informa tion online - Detail Indication:Low back pain potentially associated with radiculopathy Start:02-Nov-2015 Instruction Type:Patient Education Patient Instructions Indication:Low back pain potentially associated with radiculopathy Start:02-Nov-2015 Instruction Type:Provider Instructions for Treatment How to access health informa tion online Indication:Wheezing (Renamed from Asthmatic breathing) Start:23-Jan-2014 Instruction Type:Patient Education How to access health informa tion online - Detail Indication:Wheezing (Renamed from Asthmatic breathing) Start:23-Jan-2014 Instruction Type:Patient Education Patient Instructions Indication:Wheezing (Renamed from Asthmatic breathing) Start:23-Jan-2014 Instruction Type:Provider Instructions for Treatment How to access health informa tion online Indication:Breast pain Start:12-Jan-2014 Instruction Type:Patient Education How to access health informa tion online - Detail Indication:Breast pain Start:12-Jan-2014 Instruction Type:Patient Education Patient Instructions Indication:Breast pain Start:12-Jan-2014 Instruction Type:Provider Instructions for Treatment Patient Instructions Indication:Acid reflux Start:31-Aug-2013 Instruction Type:Provider Instructions for Treatment [facility]; [facility] Work Phone: Instructions* Name Dates Details Patient Instructions Indication:BMI 39.0-39.9,adult Start:13-May-2021 Instruction Type:Provider Instructions for Treatment How to Access Health Informa tion Online using Patient Portal and [employer] Apps Indication:BMI 39.0-39.9,adult Start:13-May-2021 Instruction Type:Patient Education Patient Instructions Indication:Non-smoker Start:11-Jan-2021 Instruction Type:Provider Instructions for Treatment How to Access Health Informa tion Online using Patient Portal and [employer] Apps Indication:Non-smoker Start:11-Jan-2021 Instruction Type:Patient Education Patient Instructions Indication:Right flank pain Start:30-Aug-2020 Instruction Type:Provider Instructions for Treatment How to Access Health Informa tion Online using Patient Portal and [employer] Apps Indication:Right flank pain Start:30-Aug-2020 Instruction Type:Patient Education How to Access Health Informa tion Online using Patient Portal and [employer] Apps Indication:Nonsmoker Start:21-Jun-2020 Instruction Type:Patient Education Patient Instructions Indication:Nonsmoker Start:21-Jun-2020 Instruction Type:Provider Instructions for Treatment How to access health informa tion online Indication:BMI 40.0-44.9, adult Start:16-Mar-2020 Instruction Type:Patient Education How to access health informa tion online - Detail Indication:BMI 40.0-44.9, adult Start:16-Mar-2020 Instruction Type:Patient Education Patient Instructions Indication:BMI 40.0-44.9, adult Start:16-Mar-2020 Instruction Type:Provider Instructions for Treatment How to access health informa tion online Indication:Obesity, morbid, BMI 40.0-49.9 Start:24-Jan-2020 Instruction Type:Patient Education How to access health informa tion online - Detail Indication:Obesity, morbid, BMI 40.0-49.9 Start:24-Jan-2020 Instruction Type:Patient Education Patient Instructions Indication:Obesity, morbid, BMI 40.0-49.9 Start:24-Jan-2020 Instruction Type:Provider Instructions for Treatment How to access health informa tion online Indication:Nonsmoker Start:05-Dec-2019 Instruction Type:Patient Education How to access health informa tion online - Detail Indication:Nonsmoker Start:05-Dec-2019 Instruction Type:Patient Education Patient Instructions Indication:Nonsmoker Start:05-Dec-2019 Instruction Type:Provider Instructions for Treatment How to access health informa tion online Indication:Sore throat Start:23-Mar-2019 Instruction Type:Patient Education How to access health informa tion online - Detail Indication:Sore throat Start:23-Mar-2019 Instruction Type:Patient Education Patient Instructions Indication:Sore throat Start:23-Mar-2019 Instruction Type:Provider Instructions for Treatment How to access health informa tion online Indication:Nonsmoker Start:02-Mar-2019 Instruction Type:Patient Education How to access health informa tion online - Detail Indication:Nonsmoker Start:02-Mar-2019 Instruction Type:Patient Education Patient Instructions Indication:Nonsmoker Start:02-Mar-2019 Instruction Type:Provider Instructions for Treatment Patient Instructions Indication:Upper respiratory infection, viral Start:18-Oct-2018 Instruction Type:Provider Instructions for Treatment How to access health informa tion online Indication:Nonsmoker Start:18-Oct-2018 Instruction Type:Patient Education How to access health informa tion online - Detail Indication:Nonsmoker Start:18-Oct-2018 Instruction Type:Patient Education How to access health informa tion online Indication:BMI 40.0-44.9, adult Start:05-May-2018 Instruction Type:Patient Education How to access health informa tion online - Detail Indication:BMI 40.0-44.9, adult Start:05-May-2018 Instruction Type:Patient Education Patient Instructions Indication:BMI 40.0-44.9, adult Start:05-May-2018 Instruction Type:Provider Instructions for Treatment How to access health informa tion online Indication:Nonsmoker Start:23-Feb-2018 Instruction Type:Patient Education How to access health informa tion online - Detail Indication:Nonsmoker Start:23-Feb-2018 Instruction Type:Patient Education Patient Instructions Indication:Nonsmoker Start:23-Feb-2018 Instruction Type:Provider Instructions for Treatment How to access health informa tion online Indication:BMI 40.0-44.9, adult Start:15-Feb-2018 Instruction Type:Patient Education How to access health informa tion online - Detail Indication:BMI 40.0-44.9, adult Start:15-Feb-2018 Instruction Type:Patient Education Patient Instructions Indication:Decreased range of motion of left lower extremity Start:15-Feb-2018 Instruction Type:Provider Instructions for Treatment How to access health informa tion online Indication:BMI 40.0-44.9, adult Start:14-Dec-2017 Instruction Type:Patient Education How to access health informa tion online - Detail Indication:BMI 40.0-44.9, adult Start:14-Dec-2017 Instruction Type:Patient Education Patient Instructions Indication:BMI 40.0-44.9, adult Start:14-Dec-2017 Instruction Type:Provider Instructions for Treatment How to access health informa tion online Indication:BMI 40.0-44.9, adult Start:11-Aug-2017 Instruction Type:Patient Education How to access health informa tion online - Detail Indication:BMI 40.0-44.9, adult Start:11-Aug-2017 Instruction Type:Patient Education Patient Instructions Indication:Acute asthma exacerbation (Renamed from Asthma with acute exacerbation) Start:11-Aug-2017 Instruction Type:Provider Instructions for Treatment How to access health informa tion online Indication:BMI 40.0-44.9, adult Start:10-Aug-2017 Instruction Type:Patient Education How to access health informa tion online - Detail Indication:BMI 40.0-44.9, adult Start:10-Aug-2017 Instruction Type:Patient Education Patient Instructions Indication:Acute asthma exacerbation (Renamed from Asthma with acute exacerbation) Start:10-Aug-2017 Instruction Type:Provider Instructions for Treatment How to access health informa tion online Indication:Cough Start:05-Aug-2017 Instruction Type:Patient Education How to access health informa tion online - Detail Indication:Cough Start:05-Aug-2017 Instruction Type:Patient Education Patient Instructions Indication:Cough Start:05-Aug-2017 Instruction Type:Provider Instructions for Treatment DISCONTINUED - LIPID PANEL ( [id number]) Indication:SCREENING FOR HYPERLIPIDEMIA (Renamed from Encounter for screening for lipoid disorders) Start:06-May-2017 Instruction Type:Patient Education How to access health informa tion online Indication:Sinus pressure Start:06-May-2017 Instruction Type:Patient Education How to access health informa tion online - Detail Indication:Sinus pressure Start:06-May-2017 Instruction Type:Patient Education Patient Instructions Indication:Sinus pressure Start:06-May-2017 Instruction Type:Provider Instructions for Treatment How to access health informa tion online Indication:Flu-like symptoms Start:30-Mar-2017 Instruction Type:Patient Education How to access health informa tion online - Detail Indication:Flu-like symptoms Start:30-Mar-2017 Instruction Type:Patient Education Patient Instructions Indication:Flu-like symptoms Start:30-Mar-2017 Instruction Type:Provider Instructions for Treatment How to access health informa tion online Indication:Low back pain potentially associated with radiculopathy Start:02-Nov-2015 Instruction Type:Patient Education How to access health informa tion online - Detail Indication:Low back pain potentially associated with radiculopathy Start:02-Nov-2015 Instruction Type:Patient Education Patient Instructions Indication:Low back pain potentially associated with radiculopathy Start:02-Nov-2015 Instruction Type:Provider Instructions for Treatment How to access health informa tion online Indication:Wheezing (Renamed from Asthmatic breathing) Start:23-Jan-2014 Instruction Type:Patient Education How to access health informa tion online - Detail Indication:Wheezing (Renamed from Asthmatic breathing) Start:23-Jan-2014 Instruction Type:Patient Education Patient Instructions Indication:Wheezing (Renamed from Asthmatic breathing) Start:23-Jan-2014 Instruction Type:Provider Instructions for Treatment How to access health informa tion online Indication:Breast pain Start:12-Jan-2014 Instruction Type:Patient Education How to access health informa tion online - Detail Indication:Breast pain Start:12-Jan-2014 Instruction Type:Patient Education Patient Instructions Indication:Breast pain Start:12-Jan-2014 Instruction Type:Provider Instructions for Treatment Patient Instructions Indication:Acid reflux Start:31-Aug-2013 Instruction Type:Provider Instructions for Treatment [facility]; [facility] Work Phone: Instructions* Name Dates Details Patient Instructions Indication:BMI 39.0-39.9,adult Start:13-May-2021 Instruction Type:Provider Instructions for Treatment How to Access Health Informa tion Online using Patient Portal and [employer] Indication:BMI 39.0-39.9,adult Start:13-May-2021 Instruction Type:Patient Education Patient Instructions Indication:Non-smoker Start:11-Jan-2021 Instruction Type:Provider Instructions for Treatment How to Access Health Informa tion Online using Patient Portal and [employer] Apps Indication:Non-smoker Start:11-Jan-2021 Instruction Type:Patient Education Patient Instructions Indication:Right flank pain Start:30-Aug-2020 Instruction Type:Provider Instructions for Treatment How to Access Health Informa tion Online using Patient Portal and [employer] Apps Indication:Right flank pain Start:30-Aug-2020 Instruction Type:Patient Education How to Access Health Informa tion Online using Patient Portal and [employer] Apps Indication:Nonsmoker Start:21-Jun-2020 Instruction Type:Patient Education Patient Instructions Indication:Nonsmoker Start:21-Jun-2020 Instruction Type:Provider Instructions for Treatment How to access health informa tion online Indication:BMI 40.0-44.9, adult Start:16-Mar-2020 Instruction Type:Patient Education How to access health informa tion online - Detail Indication:BMI 40.0-44.9, adult Start:16-Mar-2020 Instruction Type:Patient Education Patient Instructions Indication:BMI 40.0-44.9, adult Start:16-Mar-2020 Instruction Type:Provider Instructions for Treatment How to access health informa tion online Indication:Obesity, morbid, BMI 40.0-49.9 Start:24-Jan-2020 Instruction Type:Patient Education How to access health informa tion online - Detail Indication:Obesity, morbid, BMI 40.0-49.9 Start:24-Jan-2020 Instruction Type:Patient Education Patient Instructions Indication:Obesity, morbid, BMI 40.0-49.9 Start:24-Jan-2020 Instruction Type:Provider Instructions for Treatment How to access health informa tion online Indication:Nonsmoker Start:05-Dec-2019 Instruction Type:Patient Education How to access health informa tion online - Detail Indication:Nonsmoker Start:05-Dec-2019 Instruction Type:Patient Education Patient Instructions Indication:Nonsmoker Start:05-Dec-2019 Instruction Type:Provider Instructions for Treatment How to access health informa tion online Indication:Sore throat Start:23-Mar-2019 Instruction Type:Patient Education How to access health informa tion online - Detail Indication:Sore throat Start:23-Mar-2019 Instruction Type:Patient Education Patient Instructions Indication:Sore throat Start:23-Mar-2019 Instruction Type:Provider Instructions for Treatment How to access health informa tion online Indication:Nonsmoker Start:02-Mar-2019 Instruction Type:Patient Education How to access health informa tion online - Detail Indication:Nonsmoker Start:02-Mar-2019 Instruction Type:Patient Education Patient Instructions Indication:Nonsmoker Start:02-Mar-2019 Instruction Type:Provider Instructions for Treatment Patient Instructions Indication:Upper respiratory infection, viral Start:18-Oct-2018 Instruction Type:Provider Instructions for Treatment How to access health informa tion online Indication:Nonsmoker Start:18-Oct-2018 Instruction Type:Patient Education How to access health informa tion online - Detail Indication:Nonsmoker Start:18-Oct-2018 Instruction Type:Patient Education How to access health informa tion online Indication:BMI 40.0-44.9, adult Start:05-May-2018 Instruction Type:Patient Education How to access health informa tion online - Detail Indication:BMI 40.0-44.9, adult Start:05-May-2018 Instruction Type:Patient Education Patient Instructions Indication:BMI 40.0-44.9, adult Start:05-May-2018 Instruction Type:Provider Instructions for Treatment How to access health informa tion online Indication:Nonsmoker Start:23-Feb-2018 Instruction Type:Patient Education How to access health informa tion online - Detail Indication:Nonsmoker Start:23-Feb-2018 Instruction Type:Patient Education Patient Instructions Indication:Nonsmoker Start:23-Feb-2018 Instruction Type:Provider Instructions for Treatment How to access health informa tion online Indication:BMI 40.0-44.9, adult Start:15-Feb-2018 Instruction Type:Patient Education How to access health informa tion online - Detail Indication:BMI 40.0-44.9, adult Start:15-Feb-2018 Instruction Type:Patient Education Patient Instructions Indication:Decreased range of motion of left lower extremity Start:15-Feb-2018 Instruction Type:Provider Instructions for Treatment How to access health informa tion online Indication:BMI 40.0-44.9, adult Start:14-Dec-2017 Instruction Type:Patient Education How to access health informa tion online - Detail Indication:BMI 40.0-44.9, adult Start:14-Dec-2017 Instruction Type:Patient Education Patient Instructions Indication:BMI 40.0-44.9, adult Start:14-Dec-2017 Instruction Type:Provider Instructions for Treatment How to access health informa tion online Indication:BMI 40.0-44.9, adult Start:11-Aug-2017 Instruction Type:Patient Education How to access health informa tion online - Detail Indication:BMI 40.0-44.9, adult Start:11-Aug-2017 Instruction Type:Patient Education Patient Instructions Indication:Acute asthma exacerbation (Renamed from Asthma with acute exacerbation) Start:11-Aug-2017 Instruction Type:Provider Instructions for Treatment How to access health informa tion online Indication:BMI 40.0-44.9, adult Start:10-Aug-2017 Instruction Type:Patient Education How to access health informa tion online - Detail Indication:BMI 40.0-44.9, adult Start:10-Aug-2017 Instruction Type:Patient Education Patient Instructions Indication:Acute asthma exacerbation (Renamed from Asthma with acute exacerbation) Start:10-Aug-2017 Instruction Type:Provider Instructions for Treatment How to access health informa tion online Indication:Cough Start:05-Aug-2017 Instruction Type:Patient Education How to access health informa tion online - Detail Indication:Cough Start:05-Aug-2017 Instruction Type:Patient Education Patient Instructions Indication:Cough Start:05-Aug-2017 Instruction Type:Provider Instructions for Treatment DISCONTINUED - LIPID PANEL ( 63368) Indication:SCREENING FOR HYPERLIPIDEMIA (Renamed from Encounter for screening for lipoid disorders) Start:06-May-2017 Instruction Type:Patient Education How to access health informa tion online Indication:Sinus pressure Start:06-May-2017 Instruction Type:Patient Education How to access health informa tion online - Detail Indication:Sinus pressure Start:06-May-2017 Instruction Type:Patient Education Patient Instructions Indication:Sinus pressure Start:06-May-2017 Instruction Type:Provider Instructions for Treatment How to access health informa tion online Indication:Flu-like symptoms Start:30-Mar-2017 Instruction Type:Patient Education How to access health informa tion online - Detail Indication:Flu-like symptoms Start:30-Mar-2017 Instruction Type:Patient Education Patient Instructions Indication:Flu-like symptoms Start:30-Mar-2017 Instruction Type:Provider Instructions for Treatment How to access health informa tion online Indication:Low back pain potentially associated with radiculopathy Start:02-Nov-2015 Instruction Type:Patient Education How to access health informa tion online - Detail Indication:Low back pain potentially associated with radiculopathy Start:02-Nov-2015 Instruction Type:Patient Education Patient Instructions Indication:Low back pain potentially associated with radiculopathy Start:02-Nov-2015 Instruction Type:Provider Instructions for Treatment How to access health informa tion online Indication:Wheezing (Renamed from Asthmatic breathing) Start:23-Jan-2014 Instruction Type:Patient Education How to access health informa tion online - Detail Indication:Wheezing (Renamed from Asthmatic breathing) Start:23-Jan-2014 Instruction Type:Patient Education Patient Instructions Indication:Wheezing (Renamed from Asthmatic breathing) Start:23-Jan-2014 Instruction Type:Provider Instructions for Treatment How to access health informa tion online Indication:Breast pain Start:12-Jan-2014 Instruction Type:Patient Education How to access health informa tion online - Detail Indication:Breast pain Start:12-Jan-2014 Instruction Type:Patient Education Patient Instructions Indication:Breast pain Start:12-Jan-2014 Instruction Type:Provider Instructions for Treatment Patient Instructions Indication:Acid reflux Start:31-Aug-2013 Instruction Type:Provider Instructions for Treatment [facility]; [facility] Work Phone: Instructions* Name Dates Details Patient Instructions Indication:BMI 39.0-39.9,adult Start:13-May-2021 Instruction Type:Provider Instructions for Treatment How to Access Health Informa tion Online using Patient Portal and [employer] Apps Indication:BMI 39.0-39.9,adult Start:13-May-2021 Instruction Type:Patient Education Patient Instructions Indication:Non-smoker Start:11-Jan-2021 Instruction Type:Provider Instructions for Treatment How to Access Health Informa tion Online using Patient Portal and [employer] Apps Indication:Non-smoker Start:11-Jan-2021 Instruction Type:Patient Education Patient Instructions Indication:Right flank pain Start:30-Aug-2020 Instruction Type:Provider Instructions for Treatment How to Access Health Informa tion Online using Patient Portal and [employer] Apps Indication:Right flank pain Start:30-Aug-2020 Instruction Type:Patient Education How to Access Health Informa tion Online using Patient Portal and [employer] Apps Indication:Nonsmoker Start:21-Jun-2020 Instruction Type:Patient Education Patient Instructions Indication:Nonsmoker Start:21-Jun-2020 Instruction Type:Provider Instructions for Treatment How to access health informa tion online Indication:BMI 40.0-44.9, adult Start:16-Mar-2020 Instruction Type:Patient Education How to access health informa tion online - Detail Indication:BMI 40.0-44.9, adult Start:16-Mar-2020 Instruction Type:Patient Education Patient Instructions Indication:BMI 40.0-44.9, adult Start:16-Mar-2020 Instruction Type:Provider Instructions for Treatment How to access health informa tion online Indication:Obesity, morbid, BMI 40.0-49.9 Start:24-Jan-2020 Instruction Type:Patient Education How to access health informa tion online - Detail Indication:Obesity, morbid, BMI 40.0-49.9 Start:24-Jan-2020 Instruction Type:Patient Education Patient Instructions Indication:Obesity, morbid, BMI 40.0-49.9 Start:24-Jan-2020 Instruction Type:Provider Instructions for Treatment How to access health informa tion online Indication:Nonsmoker Start:05-Dec-2019 Instruction Type:Patient Education How to access health informa tion online - Detail Indication:Nonsmoker Start:05-Dec-2019 Instruction Type:Patient Education Patient Instructions Indication:Nonsmoker Start:05-Dec-2019 Instruction Type:Provider Instructions for Treatment How to access health informa tion online Indication:Sore throat Start:23-Mar-2019 Instruction Type:Patient Education How to access health informa tion online - Detail Indication:Sore throat Start:23-Mar-2019 Instruction Type:Patient Education Patient Instructions Indication:Sore throat Start:23-Mar-2019 Instruction Type:Provider Instructions for Treatment How to access health informa tion online Indication:Nonsmoker Start:02-Mar-2019 Instruction Type:Patient Education How to access health informa tion online - Detail Indication:Nonsmoker Start:02-Mar-2019 Instruction Type:Patient Education Patient Instructions Indication:Nonsmoker Start:02-Mar-2019 Instruction Type:Provider Instructions for Treatment Patient Instructions Indication:Upper respiratory infection, viral Start:18-Oct-2018 Instruction Type:Provider Instructions for Treatment How to access health informa tion online Indication:Nonsmoker Start:18-Oct-2018 Instruction Type:Patient Education How to access health informa tion online - Detail Indication:Nonsmoker Start:18-Oct-2018 Instruction Type:Patient Education How to access health informa tion online Indication:BMI 40.0-44.9, adult Start:05-May-2018 Instruction Type:Patient Education How to access health informa tion online - Detail Indication:BMI 40.0-44.9, adult Start:05-May-2018 Instruction Type:Patient Education Patient Instructions Indication:BMI 40.0-44.9, adult Start:05-May-2018 Instruction Type:Provider Instructions for Treatment How to access health informa tion online Indication:Nonsmoker Start:23-Feb-2018 Instruction Type:Patient Education How to access health informa tion online - Detail Indication:Nonsmoker Start:23-Feb-2018 Instruction Type:Patient Education Patient Instructions Indication:Nonsmoker Start:23-Feb-2018 Instruction Type:Provider Instructions for Treatment How to access health informa tion online Indication:BMI 40.0-44.9, adult Start:15-Feb-2018 Instruction Type:Patient Education How to access health informa tion online - Detail Indication:BMI 40.0-44.9, adult Start:15-Feb-2018 Instruction Type:Patient Education Patient Instructions Indication:Decreased range of motion of left lower extremity Start:15-Feb-2018 Instruction Type:Provider Instructions for Treatment How to access health informa tion online Indication:BMI 40.0-44.9, adult Start:14-Dec-2017 Instruction Type:Patient Education How to access health informa tion online - Detail Indication:BMI 40.0-44.9, adult Start:14-Dec-2017 Instruction Type:Patient Education Patient Instructions Indication:BMI 40.0-44.9, adult Start:14-Dec-2017 Instruction Type:Provider Instructions for Treatment How to access health informa tion online Indication:BMI 40.0-44.9, adult Start:11-Aug-2017 Instruction Type:Patient Education How to access health informa tion online - Detail Indication:BMI 40.0-44.9, adult Start:11-Aug-2017 Instruction Type:Patient Education Patient Instructions Indication:Acute asthma exacerbation (Renamed from Asthma with acute exacerbation) Start:11-Aug-2017 Instruction Type:Provider Instructions for Treatment How to access health informa tion online Indication:BMI 40.0-44.9, adult Start:10-Aug-2017 Instruction Type:Patient Education How to access health informa tion online - Detail Indication:BMI 40.0-44.9, adult Start:10-Aug-2017 Instruction Type:Patient Education Patient Instructions Indication:Acute asthma exacerbation (Renamed from Asthma with acute exacerbation) Start:10-Aug-2017 Instruction Type:Provider Instructions for Treatment How to access health informa tion online Indication:Cough Start:05-Aug-2017 Instruction Type:Patient Education How to access health informa tion online - Detail Indication:Cough Start:05-Aug-2017 Instruction Type:Patient Education Patient Instructions Indication:Cough Start:05-Aug-2017 Instruction Type:Provider Instructions for Treatment DISCONTINUED - LIPID PANEL ( [id number]) Indication:SCREENING FOR HYPERLIPIDEMIA (Renamed from Encounter for screening for lipoid disorders) Start:06-May-2017 Instruction Type:Patient Education How to access health informa tion online Indication:Sinus pressure Start:06-May-2017 Instruction Type:Patient Education How to access health informa tion online - Detail Indication:Sinus pressure Start:06-May-2017 Instruction Type:Patient Education Patient Instructions Indication:Sinus pressure Start:06-May-2017 Instruction Type:Provider Instructions for Treatment How to access health informa tion online Indication:Flu-like symptoms Start:30-Mar-2017 Instruction Type:Patient Education How to access health informa tion online - Detail Indication:Flu-like symptoms Start:30-Mar-2017 Instruction Type:Patient Education Patient Instructions Indication:Flu-like symptoms Start:30-Mar-2017 Instruction Type:Provider Instructions for Treatment How to access health informa tion online Indication:Low back pain potentially associated with radiculopathy Start:02-Nov-2015 Instruction Type:Patient Education How to access health informa tion online - Detail Indication:Low back pain potentially associated with radiculopathy Start:02-Nov-2015 Instruction Type:Patient Education Patient Instructions Indication:Low back pain potentially associated with radiculopathy Start:02-Nov-2015 Instruction Type:Provider Instructions for Treatment How to access health informa tion online Indication:Wheezing (Renamed from Asthmatic breathing) Start:23-Jan-2014 Instruction Type:Patient Education How to access health informa tion online - Detail Indication:Wheezing (Renamed from Asthmatic breathing) Start:23-Jan-2014 Instruction Type:Patient Education Patient Instructions Indication:Wheezing (Renamed from Asthmatic breathing) Start:23-Jan-2014 Instruction Type:Provider Instructions for Treatment How to access health informa tion online Indication:Breast pain Start:12-Jan-2014 Instruction Type:Patient Education How to access health informa tion online - Detail Indication:Breast pain Start:12-Jan-2014 Instruction Type:Patient Education Patient Instructions Indication:Breast pain Start:12-Jan-2014 Instruction Type:Provider Instructions for Treatment Patient Instructions Indication:Acid reflux Start:31-Aug-2013 Instruction Type:Provider Instructions for Treatment [facility]; [facility] Work Phone: Instructions* Name Dates Details Patient Instructions Indication:BMI 39.0-39.9,adult Start:13-May-2021 Instruction Type:Provider Instructions for Treatment How to Access Health Informa tion Online using Patient Portal and [employer] Indication:BMI 39.0-39.9,adult Start:13-May-2021 Instruction Type:Patient Education Patient Instructions Indication:Non-smoker Start:11-Jan-2021 Instruction Type:Provider Instructions for Treatment How to Access Health Informa tion Online using Patient Portal and [employer] Indication:Non-smoker Start:11-Jan-2021 Instruction Type:Patient Education Patient Instructions Indication:Right flank pain Start:30-Aug-2020 Instruction Type:Provider Instructions for Treatment How to Access Health Informa tion Online using Patient Portal and [employer] Apps Indication:Right flank pain Start:30-Aug-2020 Instruction Type:Patient Education How to Access Health Informa tion Online using Patient Portal and [employer] Apps Indication:Nonsmoker Start:21-Jun-2020 Instruction Type:Patient Education Patient Instructions Indication:Nonsmoker Start:21-Jun-2020 Instruction Type:Provider Instructions for Treatment How to access health informa tion online Indication:BMI 40.0-44.9, adult Start:16-Mar-2020 Instruction Type:Patient Education How to access health informa tion online - Detail Indication:BMI 40.0-44.9, adult Start:16-Mar-2020 Instruction Type:Patient Education Patient Instructions Indication:BMI 40.0-44.9, adult Start:16-Mar-2020 Instruction Type:Provider Instructions for Treatment How to access health informa tion online Indication:Obesity, morbid, BMI 40.0-49.9 Start:24-Jan-2020 Instruction Type:Patient Education How to access health informa tion online - Detail Indication:Obesity, morbid, BMI 40.0-49.9 Start:24-Jan-2020 Instruction Type:Patient Education Patient Instructions Indication:Obesity, morbid, BMI 40.0-49.9 Start:24-Jan-2020 Instruction Type:Provider Instructions for Treatment How to access health informa tion online Indication:Nonsmoker Start:05-Dec-2019 Instruction Type:Patient Education How to access health informa tion online - Detail Indication:Nonsmoker Start:05-Dec-2019 Instruction Type:Patient Education Patient Instructions Indication:Nonsmoker Start:05-Dec-2019 Instruction Type:Provider Instructions for Treatment How to access health informa tion online Indication:Sore throat Start:23-Mar-2019 Instruction Type:Patient Education How to access health informa tion online - Detail Indication:Sore throat Start:23-Mar-2019 Instruction Type:Patient Education Patient Instructions Indication:Sore throat Start:23-Mar-2019 Instruction Type:Provider Instructions for Treatment How to access health informa tion online Indication:Nonsmoker Start:02-Mar-2019 Instruction Type:Patient Education How to access health informa tion online - Detail Indication:Nonsmoker Start:02-Mar-2019 Instruction Type:Patient Education Patient Instructions Indication:Nonsmoker Start:02-Mar-2019 Instruction Type:Provider Instructions for Treatment Patient Instructions Indication:Upper respiratory infection, viral Start:18-Oct-2018 Instruction Type:Provider Instructions for Treatment How to access health informa tion online Indication:Nonsmoker Start:18-Oct-2018 Instruction Type:Patient Education How to access health informa tion online - Detail Indication:Nonsmoker Start:18-Oct-2018 Instruction Type:Patient Education How to access health informa tion online Indication:BMI 40.0-44.9, adult Start:05-May-2018 Instruction Type:Patient Education How to access health informa tion online - Detail Indication:BMI 40.0-44.9, adult Start:05-May-2018 Instruction Type:Patient Education Patient Instructions Indication:BMI 40.0-44.9, adult Start:05-May-2018 Instruction Type:Provider Instructions for Treatment How to access health informa tion online Indication:Nonsmoker Start:23-Feb-2018 Instruction Type:Patient Education How to access health informa tion online - Detail Indication:Nonsmoker Start:23-Feb-2018 Instruction Type:Patient Education Patient Instructions Indication:Nonsmoker Start:23-Feb-2018 Instruction Type:Provider Instructions for Treatment How to access health informa tion online Indication:BMI 40.0-44.9, adult Start:15-Feb-2018 Instruction Type:Patient Education How to access health informa tion online - Detail Indication:BMI 40.0-44.9, adult Start:15-Feb-2018 Instruction Type:Patient Education Patient Instructions Indication:Decreased range of motion of left lower extremity Start:15-Feb-2018 Instruction Type:Provider Instructions for Treatment How to access health informa tion online Indication:BMI 40.0-44.9, adult Start:14-Dec-2017 Instruction Type:Patient Education How to access health informa tion online - Detail Indication:BMI 40.0-44.9, adult Start:14-Dec-2017 Instruction Type:Patient Education Patient Instructions Indication:BMI 40.0-44.9, adult Start:14-Dec-2017 Instruction Type:Provider Instructions for Treatment How to access health informa tion online Indication:BMI 40.0-44.9, adult Start:11-Aug-2017 Instruction Type:Patient Education How to access health informa tion online - Detail Indication:BMI 40.0-44.9, adult Start:11-Aug-2017 Instruction Type:Patient Education Patient Instructions Indication:Acute asthma exacerbation (Renamed from Asthma with acute exacerbation) Start:11-Aug-2017 Instruction Type:Provider Instructions for Treatment How to access health informa tion online Indication:BMI 40.0-44.9, adult Start:10-Aug-2017 Instruction Type:Patient Education How to access health informa tion online - Detail Indication:BMI 40.0-44.9, adult Start:10-Aug-2017 Instruction Type:Patient Education Patient Instructions Indication:Acute asthma exacerbation (Renamed from Asthma with acute exacerbation) Start:10-Aug-2017 Instruction Type:Provider Instructions for Treatment How to access health informa tion online Indication:Cough Start:05-Aug-2017 Instruction Type:Patient Education How to access health informa tion online - Detail Indication:Cough Start:05-Aug-2017 Instruction Type:Patient Education Patient Instructions Indication:Cough Start:05-Aug-2017 Instruction Type:Provider Instructions for Treatment DISCONTINUED - LIPID PANEL ( [id number]) Indication:SCREENING FOR HYPERLIPIDEMIA (Renamed from Encounter for screening for lipoid disorders) Start:06-May-2017 Instruction Type:Patient Education How to access health informa tion online Indication:Sinus pressure Start:06-May-2017 Instruction Type:Patient Education How to access health informa tion online - Detail Indication:Sinus pressure Start:06-May-2017 Instruction Type:Patient Education Patient Instructions Indication:Sinus pressure Start:06-May-2017 Instruction Type:Provider Instructions for Treatment How to access health informa tion online Indication:Flu-like symptoms Start:30-Mar-2017 Instruction Type:Patient Education How to access health informa tion online - Detail Indication:Flu-like symptoms Start:30-Mar-2017 Instruction Type:Patient Education Patient Instructions Indication:Flu-like symptoms Start:30-Mar-2017 Instruction Type:Provider Instructions for Treatment How to access health informa tion online Indication:Low back pain potentially associated with radiculopathy Start:02-Nov-2015 Instruction Type:Patient Education How to access health informa tion online - Detail Indication:Low back pain potentially associated with radiculopathy Start:02-Nov-2015 Instruction Type:Patient Education Patient Instructions Indication:Low back pain potentially associated with radiculopathy Start:02-Nov-2015 Instruction Type:Provider Instructions for Treatment How to access health informa tion online Indication:Wheezing (Renamed from Asthmatic breathing) Start:23-Jan-2014 Instruction Type:Patient Education How to access health informa tion online - Detail Indication:Wheezing (Renamed from Asthmatic breathing) Start:23-Jan-2014 Instruction Type:Patient Education Patient Instructions Indication:Wheezing (Renamed from Asthmatic breathing) Start:23-Jan-2014 Instruction Type:Provider Instructions for Treatment How to access health informa tion online Indication:Breast pain Start:12-Jan-2014 Instruction Type:Patient Education How to access health informa tion online - Detail Indication:Breast pain Start:12-Jan-2014 Instruction Type:Patient Education Patient Instructions Indication:Breast pain Start:12-Jan-2014 Instruction Type:Provider Instructions for Treatment Patient Instructions Indication:Acid reflux Start:31-Aug-2013 Instruction Type:Provider Instructions for Treatment [facility]; [facility] Work Phone: Instructions* Name Dates Details Patient Instructions Indication:Non-smoker Start:14-Jun-2021 Instruction Type:Provider Instructions for Treatment How to Access Health Informa tion Online using Patient Portal and [employer] Apps Indication:Non-smoker Start:14-Jun-2021 Instruction Type:Patient Education Patient Instructions Indication:BMI 39.0-39.9,adult Start:13-May-2021 Instruction Type:Provider Instructions for Treatment How to Access Health Informa tion Online using Patient Portal and [employer] Apps Indication:BMI 39.0-39.9,adult Start:13-May-2021 Instruction Type:Patient Education Patient Instructions Indication:Non-smoker Start:11-Jan-2021 Instruction Type:Provider Instructions for Treatment How to Access Health Informa tion Online using Patient Portal and [employer] Apps Indication:Non-smoker Start:11-Jan-2021 Instruction Type:Patient Education Patient Instructions Indication:Right flank pain Start:30-Aug-2020 Instruction Type:Provider Instructions for Treatment How to Access Health Informa tion Online using Patient Portal and [employer] Apps Indication:Right flank pain Start:30-Aug-2020 Instruction Type:Patient Education How to Access Health Informa tion Online using Patient Portal and [employer] Apps Indication:Nonsmoker Start:21-Jun-2020 Instruction Type:Patient Education Patient Instructions Indication:Nonsmoker Start:21-Jun-2020 Instruction Type:Provider Instructions for Treatment How to access health informa tion online Indication:BMI 40.0-44.9, adult Start:16-Mar-2020 Instruction Type:Patient Education How to access health informa tion online - Detail Indication:BMI 40.0-44.9, adult Start:16-Mar-2020 Instruction Type:Patient Education Patient Instructions Indication:BMI 40.0-44.9, adult Start:16-Mar-2020 Instruction Type:Provider Instructions for Treatment How to access health informa tion online Indication:Obesity, morbid, BMI 40.0-49.9 Start:24-Jan-2020 Instruction Type:Patient Education How to access health informa tion online - Detail Indication:Obesity, morbid, BMI 40.0-49.9 Start:24-Jan-2020 Instruction Type:Patient Education Patient Instructions Indication:Obesity, morbid, BMI 40.0-49.9 Start:24-Jan-2020 Instruction Type:Provider Instructions for Treatment How to access health informa tion online Indication:Nonsmoker Start:05-Dec-2019 Instruction Type:Patient Education How to access health informa tion online - Detail Indication:Nonsmoker Start:05-Dec-2019 Instruction Type:Patient Education Patient Instructions Indication:Nonsmoker Start:05-Dec-2019 Instruction Type:Provider Instructions for Treatment How to access health informa tion online Indication:Sore throat Start:23-Mar-2019 Instruction Type:Patient Education How to access health informa tion online - Detail Indication:Sore throat Start:23-Mar-2019 Instruction Type:Patient Education Patient Instructions Indication:Sore throat Start:23-Mar-2019 Instruction Type:Provider Instructions for Treatment How to access health informa tion online Indication:Nonsmoker Start:02-Mar-2019 Instruction Type:Patient Education How to access health informa tion online - Detail Indication:Nonsmoker Start:02-Mar-2019 Instruction Type:Patient Education Patient Instructions Indication:Nonsmoker Start:02-Mar-2019 Instruction Type:Provider Instructions for Treatment Patient Instructions Indication:Upper respiratory infection, viral Start:18-Oct-2018 Instruction Type:Provider Instructions for Treatment How to access health informa tion online Indication:Nonsmoker Start:18-Oct-2018 Instruction Type:Patient Education How to access health informa tion online - Detail Indication:Nonsmoker Start:18-Oct-2018 Instruction Type:Patient Education How to access health informa tion online Indication:BMI 40.0-44.9, adult Start:05-May-2018 Instruction Type:Patient Education How to access health informa tion online - Detail Indication:BMI 40.0-44.9, adult Start:05-May-2018 Instruction Type:Patient Education Patient Instructions Indication:BMI 40.0-44.9, adult Start:05-May-2018 Instruction Type:Provider Instructions for Treatment How to access health informa tion online Indication:Nonsmoker Start:23-Feb-2018 Instruction Type:Patient Education How to access health informa tion online - Detail Indication:Nonsmoker Start:23-Feb-2018 Instruction Type:Patient Education Patient Instructions Indication:Nonsmoker Start:23-Feb-2018 Instruction Type:Provider Instructions for Treatment How to access health informa tion online Indication:BMI 40.0-44.9, adult Start:15-Feb-2018 Instruction Type:Patient Education How to access health informa tion online - Detail Indication:BMI 40.0-44.9, adult Start:15-Feb-2018 Instruction Type:Patient Education Patient Instructions Indication:Decreased range of motion of left lower extremity Start:15-Feb-2018 Instruction Type:Provider Instructions for Treatment How to access health informa tion online Indication:BMI 40.0-44.9, adult Start:14-Dec-2017 Instruction Type:Patient Education How to access health informa tion online - Detail Indication:BMI 40.0-44.9, adult Start:14-Dec-2017 Instruction Type:Patient Education Patient Instructions Indication:BMI 40.0-44.9, adult Start:14-Dec-2017 Instruction Type:Provider Instructions for Treatment How to access health informa tion online Indication:BMI 40.0-44.9, adult Start:11-Aug-2017 Instruction Type:Patient Education How to access health informa tion online - Detail Indication:BMI 40.0-44.9, adult Start:11-Aug-2017 Instruction Type:Patient Education Patient Instructions Indication:Acute asthma exacerbation (Renamed from Asthma with acute exacerbation) Start:11-Aug-2017 Instruction Type:Provider Instructions for Treatment How to access health informa tion online Indication:BMI 40.0-44.9, adult Start:10-Aug-2017 Instruction Type:Patient Education How to access health informa tion online - Detail Indication:BMI 40.0-44.9, adult Start:10-Aug-2017 Instruction Type:Patient Education Patient Instructions Indication:Acute asthma exacerbation (Renamed from Asthma with acute exacerbation) Start:10-Aug-2017 Instruction Type:Provider Instructions for Treatment How to access health informa tion online Indication:Cough Start:05-Aug-2017 Instruction Type:Patient Education How to access health informa tion online - Detail Indication:Cough Start:05-Aug-2017 Instruction Type:Patient Education Patient Instructions Indication:Cough Start:05-Aug-2017 Instruction Type:Provider Instructions for Treatment DISCONTINUED - LIPID PANEL ( [id number]) Indication:SCREENING FOR HYPERLIPIDEMIA (Renamed from Encounter for screening for lipoid disorders) Start:06-May-2017 Instruction Type:Patient Education How to access health informa tion online Indication:Sinus pressure Start:06-May-2017 Instruction Type:Patient Education How to access health informa tion online - Detail Indication:Sinus pressure Start:06-May-2017 Instruction Type:Patient Education Patient Instructions Indication:Sinus pressure Start:06-May-2017 Instruction Type:Provider Instructions for Treatment How to access health informa tion online Indication:Flu-like symptoms Start:30-Mar-2017 Instruction Type:Patient Education How to access health informa tion online - Detail Indication:Flu-like symptoms Start:30-Mar-2017 Instruction Type:Patient Education Patient Instructions Indication:Flu-like symptoms Start:30-Mar-2017 Instruction Type:Provider Instructions for Treatment How to access health informa tion online Indication:Low back pain potentially associated with radiculopathy Start:02-Nov-2015 Instruction Type:Patient Education How to access health informa tion online - Detail Indication:Low back pain potentially associated with radiculopathy Start:02-Nov-2015 Instruction Type:Patient Education Patient Instructions Indication:Low back pain potentially associated with radiculopathy Start:02-Nov-2015 Instruction Type:Provider Instructions for Treatment How to access health informa tion online Indication:Wheezing (Renamed from Asthmatic breathing) Start:23-Jan-2014 Instruction Type:Patient Education How to access health informa tion online - Detail Indication:Wheezing (Renamed from Asthmatic breathing) Start:23-Jan-2014 Instruction Type:Patient Education Patient Instructions Indication:Wheezing (Renamed from Asthmatic breathing) Start:23-Jan-2014 Instruction Type:Provider Instructions for Treatment How to access health informa tion online Indication:Breast pain Start:12-Jan-2014 Instruction Type:Patient Education How to access health informa tion online - Detail Indication:Breast pain Start:12-Jan-2014 Instruction Type:Patient Education Patient Instructions Indication:Breast pain Start:12-Jan-2014 Instruction Type:Provider Instructions for Treatment Patient Instructions Indication:Acid reflux Start:31-Aug-2013 Instruction Type:Provider Instructions for Treatment [facility]; [facility] Work Phone: Instructions* Name Dates Details Patient Instructions Indication:Non-smoker Start:14-Jun-2021 Instruction Type:Provider Instructions for Treatment How to Access Health Informa tion Online using Patient Portal and [employer] Apps Indication:Non-smoker Start:14-Jun-2021 Instruction Type:Patient Education Patient Instructions Indication:BMI 39.0-39.9,adult Start:13-May-2021 Instruction Type:Provider Instructions for Treatment How to Access Health Informa tion Online using Patient Portal and [employer] Apps Indication:BMI 39.0-39.9,adult Start:13-May-2021 Instruction Type:Patient Education Patient Instructions Indication:Non-smoker Start:11-Jan-2021 Instruction Type:Provider Instructions for Treatment How to Access Health Informa tion Online using Patient Portal and [employer] Apps Indication:Non-smoker Start:11-Jan-2021 Instruction Type:Patient Education Patient Instructions Indication:Right flank pain Start:30-Aug-2020 Instruction Type:Provider Instructions for Treatment How to Access Health Informa tion Online using Patient Portal and [employer] Apps Indication:Right flank pain Start:30-Aug-2020 Instruction Type:Patient Education How to Access Health Informa tion Online using Patient Portal and [employer] Apps Indication:Nonsmoker Start:21-Jun-2020 Instruction Type:Patient Education Patient Instructions Indication:Nonsmoker Start:21-Jun-2020 Instruction Type:Provider Instructions for Treatment How to access health informa tion online Indication:BMI 40.0-44.9, adult Start:16-Mar-2020 Instruction Type:Patient Education How to access health informa tion online - Detail Indication:BMI 40.0-44.9, adult Start:16-Mar-2020 Instruction Type:Patient Education Patient Instructions Indication:BMI 40.0-44.9, adult Start:16-Mar-2020 Instruction Type:Provider Instructions for Treatment How to access health informa tion online Indication:Obesity, morbid, BMI 40.0-49.9 Start:24-Jan-2020 Instruction Type:Patient Education How to access health informa tion online - Detail Indication:Obesity, morbid, BMI 40.0-49.9 Start:24-Jan-2020 Instruction Type:Patient Education Patient Instructions Indication:Obesity, morbid, BMI 40.0-49.9 Start:24-Jan-2020 Instruction Type:Provider Instructions for Treatment How to access health informa tion online Indication:Nonsmoker Start:05-Dec-2019 Instruction Type:Patient Education How to access health informa tion online - Detail Indication:Nonsmoker Start:05-Dec-2019 Instruction Type:Patient Education Patient Instructions Indication:Nonsmoker Start:05-Dec-2019 Instruction Type:Provider Instructions for Treatment How to access health informa tion online Indication:Sore throat Start:23-Mar-2019 Instruction Type:Patient Education How to access health informa tion online - Detail Indication:Sore throat Start:23-Mar-2019 Instruction Type:Patient Education Patient Instructions Indication:Sore throat Start:23-Mar-2019 Instruction Type:Provider Instructions for Treatment How to access health informa tion online Indication:Nonsmoker Start:02-Mar-2019 Instruction Type:Patient Education How to access health informa tion online - Detail Indication:Nonsmoker Start:02-Mar-2019 Instruction Type:Patient Education Patient Instructions Indication:Nonsmoker Start:02-Mar-2019 Instruction Type:Provider Instructions for Treatment Patient Instructions Indication:Upper respiratory infection, viral Start:18-Oct-2018 Instruction Type:Provider Instructions for Treatment How to access health informa tion online Indication:Nonsmoker Start:18-Oct-2018 Instruction Type:Patient Education How to access health informa tion online - Detail Indication:Nonsmoker Start:18-Oct-2018 Instruction Type:Patient Education How to access health informa tion online Indication:BMI 40.0-44.9, adult Start:05-May-2018 Instruction Type:Patient Education How to access health informa tion online - Detail Indication:BMI 40.0-44.9, adult Start:05-May-2018 Instruction Type:Patient Education Patient Instructions Indication:BMI 40.0-44.9, adult Start:05-May-2018 Instruction Type:Provider Instructions for Treatment How to access health informa tion online Indication:Nonsmoker Start:23-Feb-2018 Instruction Type:Patient Education How to access health informa tion online - Detail Indication:Nonsmoker Start:23-Feb-2018 Instruction Type:Patient Education Patient Instructions Indication:Nonsmoker Start:23-Feb-2018 Instruction Type:Provider Instructions for Treatment How to access health informa tion online Indication:BMI 40.0-44.9, adult Start:15-Feb-2018 Instruction Type:Patient Education How to access health informa tion online - Detail Indication:BMI 40.0-44.9, adult Start:15-Feb-2018 Instruction Type:Patient Education Patient Instructions Indication:Decreased range of motion of left lower extremity Start:15-Feb-2018 Instruction Type:Provider Instructions for Treatment How to access health informa tion online Indication:BMI 40.0-44.9, adult Start:14-Dec-2017 Instruction Type:Patient Education How to access health informa tion online - Detail Indication:BMI 40.0-44.9, adult Start:14-Dec-2017 Instruction Type:Patient Education Patient Instructions Indication:BMI 40.0-44.9, adult Start:14-Dec-2017 Instruction Type:Provider Instructions for Treatment How to access health informa tion online Indication:BMI 40.0-44.9, adult Start:11-Aug-2017 Instruction Type:Patient Education How to access health informa tion online - Detail Indication:BMI 40.0-44.9, adult Start:11-Aug-2017 Instruction Type:Patient Education Patient Instructions Indication:Acute asthma exacerbation (Renamed from Asthma with acute exacerbation) Start:11-Aug-2017 Instruction Type:Provider Instructions for Treatment How to access health informa tion online Indication:BMI 40.0-44.9, adult Start:10-Aug-2017 Instruction Type:Patient Education How to access health informa tion online - Detail Indication:BMI 40.0-44.9, adult Start:10-Aug-2017 Instruction Type:Patient Education Patient Instructions Indication:Acute asthma exacerbation (Renamed from Asthma with acute exacerbation) Start:10-Aug-2017 Instruction Type:Provider Instructions for Treatment How to access health informa tion online Indication:Cough Start:05-Aug-2017 Instruction Type:Patient Education How to access health informa tion online - Detail Indication:Cough Start:05-Aug-2017 Instruction Type:Patient Education Patient Instructions Indication:Cough Start:05-Aug-2017 Instruction Type:Provider Instructions for Treatment DISCONTINUED - LIPID PANEL ( [id number]) Indication:SCREENING FOR HYPERLIPIDEMIA (Renamed from Encounter for screening for lipoid disorders) Start:06-May-2017 Instruction Type:Patient Education How to access health informa tion online Indication:Sinus pressure Start:06-May-2017 Instruction Type:Patient Education How to access health informa tion online - Detail Indication:Sinus pressure Start:06-May-2017 Instruction Type:Patient Education Patient Instructions Indication:Sinus pressure Start:06-May-2017 Instruction Type:Provider Instructions for Treatment How to access health informa tion online Indication:Flu-like symptoms Start:30-Mar-2017 Instruction Type:Patient Education How to access health informa tion online - Detail Indication:Flu-like symptoms Start:30-Mar-2017 Instruction Type:Patient Education Patient Instructions Indication:Flu-like symptoms Start:30-Mar-2017 Instruction Type:Provider Instructions for Treatment How to access health informa tion online Indication:Low back pain potentially associated with radiculopathy Start:02-Nov-2015 Instruction Type:Patient Education How to access health informa tion online - Detail Indication:Low back pain potentially associated with radiculopathy Start:02-Nov-2015 Instruction Type:Patient Education Patient Instructions Indication:Low back pain potentially associated with radiculopathy Start:02-Nov-2015 Instruction Type:Provider Instructions for Treatment How to access health informa tion online Indication:Wheezing (Renamed from Asthmatic breathing) Start:23-Jan-2014 Instruction Type:Patient Education How to access health informa tion online - Detail Indication:Wheezing (Renamed from Asthmatic breathing) Start:23-Jan-2014 Instruction Type:Patient Education Patient Instructions Indication:Wheezing (Renamed from Asthmatic breathing) Start:23-Jan-2014 Instruction Type:Provider Instructions for Treatment How to access health informa tion online Indication:Breast pain Start:12-Jan-2014 Instruction Type:Patient Education How to access health informa tion online - Detail Indication:Breast pain Start:12-Jan-2014 Instruction Type:Patient Education Patient Instructions Indication:Breast pain Start:12-Jan-2014 Instruction Type:Provider Instructions for Treatment Patient Instructions Indication:Acid reflux Start:31-Aug-2013 Instruction Type:Provider Instructions for Treatment [facility]; [facility] Work Phone: Instructions* Name Dates Details Patient Instructions Indication:Non-smoker Start:14-Jun-2021 Instruction Type:Provider Instructions for Treatment How to Access Health Informa tion Online using Patient Portal and [employer] Apps Indication:Non-smoker Start:14-Jun-2021 Instruction Type:Patient Education Patient Instructions Indication:BMI 39.0-39.9,adult Start:13-May-2021 Instruction Type:Provider Instructions for Treatment How to Access Health Informa tion Online using Patient Portal and [employer] Indication:BMI 39.0-39.9,adult Start:13-May-2021 Instruction Type:Patient Education Patient Instructions Indication:Non-smoker Start:11-Jan-2021 Instruction Type:Provider Instructions for Treatment How to Access Health Informa tion Online using Patient Portal and [employer] Apps Indication:Non-smoker Start:11-Jan-2021 Instruction Type:Patient Education Patient Instructions Indication:Right flank pain Start:30-Aug-2020 Instruction Type:Provider Instructions for Treatment How to Access Health Informa tion Online using Patient Portal and [employer] Apps Indication:Right flank pain Start:30-Aug-2020 Instruction Type:Patient Education How to Access Health Informa tion Online using Patient Portal and [employer] Apps Indication:Nonsmoker Start:21-Jun-2020 Instruction Type:Patient Education Patient Instructions Indication:Nonsmoker Start:21-Jun-2020 Instruction Type:Provider Instructions for Treatment How to access health informa tion online Indication:BMI 40.0-44.9, adult Start:16-Mar-2020 Instruction Type:Patient Education How to access health informa tion online - Detail Indication:BMI 40.0-44.9, adult Start:16-Mar-2020 Instruction Type:Patient Education Patient Instructions Indication:BMI 40.0-44.9, adult Start:16-Mar-2020 Instruction Type:Provider Instructions for Treatment How to access health informa tion online Indication:Obesity, morbid, BMI 40.0-49.9 Start:24-Jan-2020 Instruction Type:Patient Education How to access health informa tion online - Detail Indication:Obesity, morbid, BMI 40.0-49.9 Start:24-Jan-2020 Instruction Type:Patient Education Patient Instructions Indication:Obesity, morbid, BMI 40.0-49.9 Start:24-Jan-2020 Instruction Type:Provider Instructions for Treatment How to access health informa tion online Indication:Nonsmoker Start:05-Dec-2019 Instruction Type:Patient Education How to access health informa tion online - Detail Indication:Nonsmoker Start:05-Dec-2019 Instruction Type:Patient Education Patient Instructions Indication:Nonsmoker Start:05-Dec-2019 Instruction Type:Provider Instructions for Treatment How to access health informa tion online Indication:Sore throat Start:23-Mar-2019 Instruction Type:Patient Education How to access health informa tion online - Detail Indication:Sore throat Start:23-Mar-2019 Instruction Type:Patient Education Patient Instructions Indication:Sore throat Start:23-Mar-2019 Instruction Type:Provider Instructions for Treatment How to access health informa tion online Indication:Nonsmoker Start:02-Mar-2019 Instruction Type:Patient Education How to access health informa tion online - Detail Indication:Nonsmoker Start:02-Mar-2019 Instruction Type:Patient Education Patient Instructions Indication:Nonsmoker Start:02-Mar-2019 Instruction Type:Provider Instructions for Treatment Patient Instructions Indication:Upper respiratory infection, viral Start:18-Oct-2018 Instruction Type:Provider Instructions for Treatment How to access health informa tion online Indication:Nonsmoker Start:18-Oct-2018 Instruction Type:Patient Education How to access health informa tion online - Detail Indication:Nonsmoker Start:18-Oct-2018 Instruction Type:Patient Education How to access health informa tion online Indication:BMI 40.0-44.9, adult Start:05-May-2018 Instruction Type:Patient Education How to access health informa tion online - Detail Indication:BMI 40.0-44.9, adult Start:05-May-2018 Instruction Type:Patient Education Patient Instructions Indication:BMI 40.0-44.9, adult Start:05-May-2018 Instruction Type:Provider Instructions for Treatment How to access health informa tion online Indication:Nonsmoker Start:23-Feb-2018 Instruction Type:Patient Education How to access health informa tion online - Detail Indication:Nonsmoker Start:23-Feb-2018 Instruction Type:Patient Education Patient Instructions Indication:Nonsmoker Start:23-Feb-2018 Instruction Type:Provider Instructions for Treatment How to access health informa tion online Indication:BMI 40.0-44.9, adult Start:15-Feb-2018 Instruction Type:Patient Education How to access health informa tion online - Detail Indication:BMI 40.0-44.9, adult Start:15-Feb-2018 Instruction Type:Patient Education Patient Instructions Indication:Decreased range of motion of left lower extremity Start:15-Feb-2018 Instruction Type:Provider Instructions for Treatment How to access health informa tion online Indication:BMI 40.0-44.9, adult Start:14-Dec-2017 Instruction Type:Patient Education How to access health informa tion online - Detail Indication:BMI 40.0-44.9, adult Start:14-Dec-2017 Instruction Type:Patient Education Patient Instructions Indication:BMI 40.0-44.9, adult Start:14-Dec-2017 Instruction Type:Provider Instructions for Treatment How to access health informa tion online Indication:BMI 40.0-44.9, adult Start:11-Aug-2017 Instruction Type:Patient Education How to access health informa tion online - Detail Indication:BMI 40.0-44.9, adult Start:11-Aug-2017 Instruction Type:Patient Education Patient Instructions Indication:Acute asthma exacerbation (Renamed from Asthma with acute exacerbation) Start:11-Aug-2017 Instruction Type:Provider Instructions for Treatment How to access health informa tion online Indication:BMI 40.0-44.9, adult Start:10-Aug-2017 Instruction Type:Patient Education How to access health informa tion online - Detail Indication:BMI 40.0-44.9, adult Start:10-Aug-2017 Instruction Type:Patient Education Patient Instructions Indication:Acute asthma exacerbation (Renamed from Asthma with acute exacerbation) Start:10-Aug-2017 Instruction Type:Provider Instructions for Treatment How to access health informa tion online Indication:Cough Start:05-Aug-2017 Instruction Type:Patient Education How to access health informa tion online - Detail Indication:Cough Start:05-Aug-2017 Instruction Type:Patient Education Patient Instructions Indication:Cough Start:05-Aug-2017 Instruction Type:Provider Instructions for Treatment DISCONTINUED - LIPID PANEL ( 39644) Indication:SCREENING FOR HYPERLIPIDEMIA (Renamed from Encounter for screening for lipoid disorders) Start:06-May-2017 Instruction Type:Patient Education How to access health informa tion online Indication:Sinus pressure Start:06-May-2017 Instruction Type:Patient Education How to access health informa tion online - Detail Indication:Sinus pressure Start:06-May-2017 Instruction Type:Patient Education Patient Instructions Indication:Sinus pressure Start:06-May-2017 Instruction Type:Provider Instructions for Treatment How to access health informa tion online Indication:Flu-like symptoms Start:30-Mar-2017 Instruction Type:Patient Education How to access health informa tion online - Detail Indication:Flu-like symptoms Start:30-Mar-2017 Instruction Type:Patient Education Patient Instructions Indication:Flu-like symptoms Start:30-Mar-2017 Instruction Type:Provider Instructions for Treatment How to access health informa tion online Indication:Low back pain potentially associated with radiculopathy Start:02-Nov-2015 Instruction Type:Patient Education How to access health informa tion online - Detail Indication:Low back pain potentially associated with radiculopathy Start:02-Nov-2015 Instruction Type:Patient Education Patient Instructions Indication:Low back pain potentially associated with radiculopathy Start:02-Nov-2015 Instruction Type:Provider Instructions for Treatment How to access health informa tion online Indication:Wheezing (Renamed from Asthmatic breathing) Start:23-Jan-2014 Instruction Type:Patient Education How to access health informa tion online - Detail Indication:Wheezing (Renamed from Asthmatic breathing) Start:23-Jan-2014 Instruction Type:Patient Education Patient Instructions Indication:Wheezing (Renamed from Asthmatic breathing) Start:23-Jan-2014 Instruction Type:Provider Instructions for Treatment How to access health informa tion online Indication:Breast pain Start:12-Jan-2014 Instruction Type:Patient Education How to access health informa tion online - Detail Indication:Breast pain Start:12-Jan-2014 Instruction Type:Patient Education Patient Instructions Indication:Breast pain Start:12-Jan-2014 Instruction Type:Provider Instructions for Treatment Patient Instructions Indication:Acid reflux Start:31-Aug-2013 Instruction Type:Provider Instructions for Treatment [facility]; [facility] Work Phone: Instructions* Name Dates Details Patient Instructions Indication:BMI 39.0-39.9,adult Start:30-Jul-2021 Instruction Type:Provider Instructions for Treatment How to Access Health Informa tion Online using Patient Portal and [employer] Indication:BMI 39.0-39.9,adult Start:30-Jul-2021 Instruction Type:Patient Education Patient Instructions Indication:Non-smoker Start:14-Jun-2021 Instruction Type:Provider Instructions for Treatment How to Access Health Informa tion Online using Patient Portal and [employer] Apps Indication:Non-smoker Start:14-Jun-2021 Instruction Type:Patient Education Patient Instructions Indication:BMI 39.0-39.9,adult Start:13-May-2021 Instruction Type:Provider Instructions for Treatment How to Access Health Informa tion Online using Patient Portal and [employer] Apps Indication:BMI 39.0-39.9,adult Start:13-May-2021 Instruction Type:Patient Education Patient Instructions Indication:Non-smoker Start:11-Jan-2021 Instruction Type:Provider Instructions for Treatment How to Access Health Informa tion Online using Patient Portal and [employer] Apps Indication:Non-smoker Start:11-Jan-2021 Instruction Type:Patient Education Patient Instructions Indication:Right flank pain Start:30-Aug-2020 Instruction Type:Provider Instructions for Treatment How to Access Health Informa tion Online using Patient Portal and [employer] Apps Indication:Right flank pain Start:30-Aug-2020 Instruction Type:Patient Education How to Access Health Informa tion Online using Patient Portal and [employer] Apps Indication:Nonsmoker Start:21-Jun-2020 Instruction Type:Patient Education Patient Instructions Indication:Nonsmoker Start:21-Jun-2020 Instruction Type:Provider Instructions for Treatment How to access health informa tion online Indication:BMI 40.0-44.9, adult Start:16-Mar-2020 Instruction Type:Patient Education How to access health informa tion online - Detail Indication:BMI 40.0-44.9, adult Start:16-Mar-2020 Instruction Type:Patient Education Patient Instructions Indication:BMI 40.0-44.9, adult Start:16-Mar-2020 Instruction Type:Provider Instructions for Treatment How to access health informa tion online Indication:Obesity, morbid, BMI 40.0-49.9 Start:24-Jan-2020 Instruction Type:Patient Education How to access health informa tion online - Detail Indication:Obesity, morbid, BMI 40.0-49.9 Start:24-Jan-2020 Instruction Type:Patient Education Patient Instructions Indication:Obesity, morbid, BMI 40.0-49.9 Start:24-Jan-2020 Instruction Type:Provider Instructions for Treatment How to access health informa tion online Indication:Nonsmoker Start:05-Dec-2019 Instruction Type:Patient Education How to access health informa tion online - Detail Indication:Nonsmoker Start:05-Dec-2019 Instruction Type:Patient Education Patient Instructions Indication:Nonsmoker Start:05-Dec-2019 Instruction Type:Provider Instructions for Treatment How to access health informa tion online Indication:Sore throat Start:23-Mar-2019 Instruction Type:Patient Education How to access health informa tion online - Detail Indication:Sore throat Start:23-Mar-2019 Instruction Type:Patient Education Patient Instructions Indication:Sore throat Start:23-Mar-2019 Instruction Type:Provider Instructions for Treatment How to access health informa tion online Indication:Nonsmoker Start:02-Mar-2019 Instruction Type:Patient Education How to access health informa tion online - Detail Indication:Nonsmoker Start:02-Mar-2019 Instruction Type:Patient Education Patient Instructions Indication:Nonsmoker Start:02-Mar-2019 Instruction Type:Provider Instructions for Treatment Patient Instructions Indication:Upper respiratory infection, viral Start:18-Oct-2018 Instruction Type:Provider Instructions for Treatment How to access health informa tion online Indication:Nonsmoker Start:18-Oct-2018 Instruction Type:Patient Education How to access health informa tion online - Detail Indication:Nonsmoker Start:18-Oct-2018 Instruction Type:Patient Education How to access health informa tion online Indication:BMI 40.0-44.9, adult Start:05-May-2018 Instruction Type:Patient Education How to access health informa tion online - Detail Indication:BMI 40.0-44.9, adult Start:05-May-2018 Instruction Type:Patient Education Patient Instructions Indication:BMI 40.0-44.9, adult Start:05-May-2018 Instruction Type:Provider Instructions for Treatment How to access health informa tion online Indication:Nonsmoker Start:23-Feb-2018 Instruction Type:Patient Education How to access health informa tion online - Detail Indication:Nonsmoker Start:23-Feb-2018 Instruction Type:Patient Education Patient Instructions Indication:Nonsmoker Start:23-Feb-2018 Instruction Type:Provider Instructions for Treatment How to access health informa tion online Indication:BMI 40.0-44.9, adult Start:15-Feb-2018 Instruction Type:Patient Education How to access health informa tion online - Detail Indication:BMI 40.0-44.9, adult Start:15-Feb-2018 Instruction Type:Patient Education Patient Instructions Indication:Decreased range of motion of left lower extremity Start:15-Feb-2018 Instruction Type:Provider Instructions for Treatment How to access health informa tion online Indication:BMI 40.0-44.9, adult Start:14-Dec-2017 Instruction Type:Patient Education How to access health informa tion online - Detail Indication:BMI 40.0-44.9, adult Start:14-Dec-2017 Instruction Type:Patient Education Patient Instructions Indication:BMI 40.0-44.9, adult Start:14-Dec-2017 Instruction Type:Provider Instructions for Treatment How to access health informa tion online Indication:BMI 40.0-44.9, adult Start:11-Aug-2017 Instruction Type:Patient Education How to access health informa tion online - Detail Indication:BMI 40.0-44.9, adult Start:11-Aug-2017 Instruction Type:Patient Education Patient Instructions Indication:Acute asthma exacerbation (Renamed from Asthma with acute exacerbation) Start:11-Aug-2017 Instruction Type:Provider Instructions for Treatment How to access health informa tion online Indication:BMI 40.0-44.9, adult Start:10-Aug-2017 Instruction Type:Patient Education How to access health informa tion online - Detail Indication:BMI 40.0-44.9, adult Start:10-Aug-2017 Instruction Type:Patient Education Patient Instructions Indication:Acute asthma exacerbation (Renamed from Asthma with acute exacerbation) Start:10-Aug-2017 Instruction Type:Provider Instructions for Treatment How to access health informa tion online Indication:Cough Start:05-Aug-2017 Instruction Type:Patient Education How to access health informa tion online - Detail Indication:Cough Start:05-Aug-2017 Instruction Type:Patient Education Patient Instructions Indication:Cough Start:05-Aug-2017 Instruction Type:Provider Instructions for Treatment DISCONTINUED - LIPID PANEL ( [id number]) Indication:SCREENING FOR HYPERLIPIDEMIA (Renamed from Encounter for screening for lipoid disorders) Start:06-May-2017 Instruction Type:Patient Education How to access health informa tion online Indication:Sinus pressure Start:06-May-2017 Instruction Type:Patient Education How to access health informa tion online - Detail Indication:Sinus pressure Start:06-May-2017 Instruction Type:Patient Education Patient Instructions Indication:Sinus pressure Start:06-May-2017 Instruction Type:Provider Instructions for Treatment How to access health informa tion online Indication:Flu-like symptoms Start:30-Mar-2017 Instruction Type:Patient Education How to access health informa tion online - Detail Indication:Flu-like symptoms Start:30-Mar-2017 Instruction Type:Patient Education Patient Instructions Indication:Flu-like symptoms Start:30-Mar-2017 Instruction Type:Provider Instructions for Treatment How to access health informa tion online Indication:Low back pain potentially associated with radiculopathy Start:02-Nov-2015 Instruction Type:Patient Education How to access health informa tion online - Detail Indication:Low back pain potentially associated with radiculopathy Start:02-Nov-2015 Instruction Type:Patient Education Patient Instructions Indication:Low back pain potentially associated with radiculopathy Start:02-Nov-2015 Instruction Type:Provider Instructions for Treatment How to access health informa tion online Indication:Wheezing (Renamed from Asthmatic breathing) Start:23-Jan-2014 Instruction Type:Patient Education How to access health informa tion online - Detail Indication:Wheezing (Renamed from Asthmatic breathing) Start:23-Jan-2014 Instruction Type:Patient Education Patient Instructions Indication:Wheezing (Renamed from Asthmatic breathing) Start:23-Jan-2014 Instruction Type:Provider Instructions for Treatment How to access health informa tion online Indication:Breast pain Start:12-Jan-2014 Instruction Type:Patient Education How to access health informa tion online - Detail Indication:Breast pain Start:12-Jan-2014 Instruction Type:Patient Education Patient Instructions Indication:Breast pain Start:12-Jan-2014 Instruction Type:Provider Instructions for Treatment Patient Instructions Indication:Acid reflux Start:31-Aug-2013 Instruction Type:Provider Instructions for Treatment [facility]; [facility] Work Phone: Instructions* Name Dates Details Patient Instructions Indication:Left ankle pain Start:01-Oct-2021 Instruction Type:Provider Instructions for Treatment How to Access Health Informa tion Online using Patient Portal and [employer] Apps Indication:Left ankle pain Start:01-Oct-2021 Instruction Type:Patient Education Patient Instructions Indication:BMI 39.0-39.9,adult Start:30-Jul-2021 Instruction Type:Provider Instructions for Treatment How to Access Health Informa tion Online using Patient Portal and [employer] Apps Indication:BMI 39.0-39.9,adult Start:30-Jul-2021 Instruction Type:Patient Education Patient Instructions Indication:Non-smoker Start:14-Jun-2021 Instruction Type:Provider Instructions for Treatment How to Access Health Informa tion Online using Patient Portal and [employer] Apps Indication:Non-smoker Start:14-Jun-2021 Instruction Type:Patient Education Patient Instructions Indication:BMI 39.0-39.9,adult Start:13-May-2021 Instruction Type:Provider Instructions for Treatment How to Access Health Informa tion Online using Patient Portal and [employer] Apps Indication:BMI 39.0-39.9,adult Start:13-May-2021 Instruction Type:Patient Education Patient Instructions Indication:Non-smoker Start:11-Jan-2021 Instruction Type:Provider Instructions for Treatment How to Access Health Informa tion Online using Patient Portal and [employer] Apps Indication:Non-smoker Start:11-Jan-2021 Instruction Type:Patient Education Patient Instructions Indication:Right flank pain Start:30-Aug-2020 Instruction Type:Provider Instructions for Treatment How to Access Health Informa tion Online using Patient Portal and [employer] Apps Indication:Right flank pain Start:30-Aug-2020 Instruction Type:Patient Education How to Access Health Informa tion Online using Patient Portal and [employer] Apps Indication:Nonsmoker Start:21-Jun-2020 Instruction Type:Patient Education Patient Instructions Indication:Nonsmoker Start:21-Jun-2020 Instruction Type:Provider Instructions for Treatment How to access health informa tion online Indication:BMI 40.0-44.9, adult Start:16-Mar-2020 Instruction Type:Patient Education How to access health informa tion online - Detail Indication:BMI 40.0-44.9, adult Start:16-Mar-2020 Instruction Type:Patient Education Patient Instructions Indication:BMI 40.0-44.9, adult Start:16-Mar-2020 Instruction Type:Provider Instructions for Treatment How to access health informa tion online Indication:Obesity, morbid, BMI 40.0-49.9 Start:24-Jan-2020 Instruction Type:Patient Education How to access health informa tion online - Detail Indication:Obesity, morbid, BMI 40.0-49.9 Start:24-Jan-2020 Instruction Type:Patient Education Patient Instructions Indication:Obesity, morbid, BMI 40.0-49.9 Start:24-Jan-2020 Instruction Type:Provider Instructions for Treatment How to access health informa tion online Indication:Nonsmoker Start:05-Dec-2019 Instruction Type:Patient Education How to access health informa tion online - Detail Indication:Nonsmoker Start:05-Dec-2019 Instruction Type:Patient Education Patient Instructions Indication:Nonsmoker Start:05-Dec-2019 Instruction Type:Provider Instructions for Treatment How to access health informa tion online Indication:Sore throat Start:23-Mar-2019 Instruction Type:Patient Education How to access health informa tion online - Detail Indication:Sore throat Start:23-Mar-2019 Instruction Type:Patient Education Patient Instructions Indication:Sore throat Start:23-Mar-2019 Instruction Type:Provider Instructions for Treatment How to access health informa tion online Indication:Nonsmoker Start:02-Mar-2019 Instruction Type:Patient Education How to access health informa tion online - Detail Indication:Nonsmoker Start:02-Mar-2019 Instruction Type:Patient Education Patient Instructions Indication:Nonsmoker Start:02-Mar-2019 Instruction Type:Provider Instructions for Treatment Patient Instructions Indication:Upper respiratory infection, viral Start:18-Oct-2018 Instruction Type:Provider Instructions for Treatment How to access health informa tion online Indication:Nonsmoker Start:18-Oct-2018 Instruction Type:Patient Education How to access health informa tion online - Detail Indication:Nonsmoker Start:18-Oct-2018 Instruction Type:Patient Education How to access health informa tion online Indication:BMI 40.0-44.9, adult Start:05-May-2018 Instruction Type:Patient Education How to access health informa tion online - Detail Indication:BMI 40.0-44.9, adult Start:05-May-2018 Instruction Type:Patient Education Patient Instructions Indication:BMI 40.0-44.9, adult Start:05-May-2018 Instruction Type:Provider Instructions for Treatment How to access health informa tion online Indication:Nonsmoker Start:23-Feb-2018 Instruction Type:Patient Education How to access health informa tion online - Detail Indication:Nonsmoker Start:23-Feb-2018 Instruction Type:Patient Education Patient Instructions Indication:Nonsmoker Start:23-Feb-2018 Instruction Type:Provider Instructions for Treatment How to access health informa tion online Indication:BMI 40.0-44.9, adult Start:15-Feb-2018 Instruction Type:Patient Education How to access health informa tion online - Detail Indication:BMI 40.0-44.9, adult Start:15-Feb-2018 Instruction Type:Patient Education Patient Instructions Indication:Decreased range of motion of left lower extremity Start:15-Feb-2018 Instruction Type:Provider Instructions for Treatment How to access health informa tion online Indication:BMI 40.0-44.9, adult Start:14-Dec-2017 Instruction Type:Patient Education How to access health informa tion online - Detail Indication:BMI 40.0-44.9, adult Start:14-Dec-2017 Instruction Type:Patient Education Patient Instructions Indication:BMI 40.0-44.9, adult Start:14-Dec-2017 Instruction Type:Provider Instructions for Treatment How to access health informa tion online Indication:BMI 40.0-44.9, adult Start:11-Aug-2017 Instruction Type:Patient Education How to access health informa tion online - Detail Indication:BMI 40.0-44.9, adult Start:11-Aug-2017 Instruction Type:Patient Education Patient Instructions Indication:Acute asthma exacerbation (Renamed from Asthma with acute exacerbation) Start:11-Aug-2017 Instruction Type:Provider Instructions for Treatment How to access health informa tion online Indication:BMI 40.0-44.9, adult Start:10-Aug-2017 Instruction Type:Patient Education How to access health informa tion online - Detail Indication:BMI 40.0-44.9, adult Start:10-Aug-2017 Instruction Type:Patient Education Patient Instructions Indication:Acute asthma exacerbation (Renamed from Asthma with acute exacerbation) Start:10-Aug-2017 Instruction Type:Provider Instructions for Treatment How to access health informa tion online Indication:Cough Start:05-Aug-2017 Instruction Type:Patient Education How to access health informa tion online - Detail Indication:Cough Start:05-Aug-2017 Instruction Type:Patient Education Patient Instructions Indication:Cough Start:05-Aug-2017 Instruction Type:Provider Instructions for Treatment DISCONTINUED - LIPID PANEL ( [id number]) Indication:SCREENING FOR HYPERLIPIDEMIA (Renamed from Encounter for screening for lipoid disorders) Start:06-May-2017 Instruction Type:Patient Education How to access health informa tion online Indication:Sinus pressure Start:06-May-2017 Instruction Type:Patient Education How to access health informa tion online - Detail Indication:Sinus pressure Start:06-May-2017 Instruction Type:Patient Education Patient Instructions Indication:Sinus pressure Start:06-May-2017 Instruction Type:Provider Instructions for Treatment How to access health informa tion online Indication:Flu-like symptoms Start:30-Mar-2017 Instruction Type:Patient Education How to access health informa tion online - Detail Indication:Flu-like symptoms Start:30-Mar-2017 Instruction Type:Patient Education Patient Instructions Indication:Flu-like symptoms Start:30-Mar-2017 Instruction Type:Provider Instructions for Treatment How to access health informa tion online Indication:Low back pain potentially associated with radiculopathy Start:02-Nov-2015 Instruction Type:Patient Education How to access health informa tion online - Detail Indication:Low back pain potentially associated with radiculopathy Start:02-Nov-2015 Instruction Type:Patient Education Patient Instructions Indication:Low back pain potentially associated with radiculopathy Start:02-Nov-2015 Instruction Type:Provider Instructions for Treatment How to access health informa tion online Indication:Wheezing (Renamed from Asthmatic breathing) Start:23-Jan-2014 Instruction Type:Patient Education How to access health informa tion online - Detail Indication:Wheezing (Renamed from Asthmatic breathing) Start:23-Jan-2014 Instruction Type:Patient Education Patient Instructions Indication:Wheezing (Renamed from Asthmatic breathing) Start:23-Jan-2014 Instruction Type:Provider Instructions for Treatment How to access health informa tion online Indication:Breast pain Start:12-Jan-2014 Instruction Type:Patient Education How to access health informa tion online - Detail Indication:Breast pain Start:12-Jan-2014 Instruction Type:Patient Education Patient Instructions Indication:Breast pain Start:12-Jan-2014 Instruction Type:Provider Instructions for Treatment Patient Instructions Indication:Acid reflux Start:31-Aug-2013 Instruction Type:Provider Instructions for Treatment [facility]; [facility] Work Phone: Instructions* Name Dates Details Patient Instructions Indication:Left ankle pain Start:01-Oct-2021 Instruction Type:Provider Instructions for Treatment How to Access Health Informa tion Online using Patient Portal and [employer] Indication:Left ankle pain Start:01-Oct-2021 Instruction Type:Patient Education Patient Instructions Indication:BMI 39.0-39.9,adult Start:30-Jul-2021 Instruction Type:Provider Instructions for Treatment How to Access Health Informa tion Online using Patient Portal and [employer] Apps Indication:BMI 39.0-39.9,adult Start:30-Jul-2021 Instruction Type:Patient Education Patient Instructions Indication:Non-smoker Start:14-Jun-2021 Instruction Type:Provider Instructions for Treatment How to Access Health Informa tion Online using Patient Portal and [employer] Apps Indication:Non-smoker Start:14-Jun-2021 Instruction Type:Patient Education Patient Instructions Indication:BMI 39.0-39.9,adult Start:13-May-2021 Instruction Type:Provider Instructions for Treatment How to Access Health Informa tion Online using Patient Portal and [employer] Apps Indication:BMI 39.0-39.9,adult Start:13-May-2021 Instruction Type:Patient Education Patient Instructions Indication:Non-smoker Start:11-Jan-2021 Instruction Type:Provider Instructions for Treatment How to Access Health Informa tion Online using Patient Portal and [employer] Apps Indication:Non-smoker Start:11-Jan-2021 Instruction Type:Patient Education Patient Instructions Indication:Right flank pain Start:30-Aug-2020 Instruction Type:Provider Instructions for Treatment How to Access Health Informa tion Online using Patient Portal and [employer] Apps Indication:Right flank pain Start:30-Aug-2020 Instruction Type:Patient Education How to Access Health Informa tion Online using Patient Portal and [employer] Apps Indication:Nonsmoker Start:21-Jun-2020 Instruction Type:Patient Education Patient Instructions Indication:Nonsmoker Start:21-Jun-2020 Instruction Type:Provider Instructions for Treatment How to access health informa tion online Indication:BMI 40.0-44.9, adult Start:16-Mar-2020 Instruction Type:Patient Education How to access health informa tion online - Detail Indication:BMI 40.0-44.9, adult Start:16-Mar-2020 Instruction Type:Patient Education Patient Instructions Indication:BMI 40.0-44.9, adult Start:16-Mar-2020 Instruction Type:Provider Instructions for Treatment How to access health informa tion online Indication:Obesity, morbid, BMI 40.0-49.9 Start:24-Jan-2020 Instruction Type:Patient Education How to access health informa tion online - Detail Indication:Obesity, morbid, BMI 40.0-49.9 Start:24-Jan-2020 Instruction Type:Patient Education Patient Instructions Indication:Obesity, morbid, BMI 40.0-49.9 Start:24-Jan-2020 Instruction Type:Provider Instructions for Treatment How to access health informa tion online Indication:Nonsmoker Start:05-Dec-2019 Instruction Type:Patient Education How to access health informa tion online - Detail Indication:Nonsmoker Start:05-Dec-2019 Instruction Type:Patient Education Patient Instructions Indication:Nonsmoker Start:05-Dec-2019 Instruction Type:Provider Instructions for Treatment How to access health informa tion online Indication:Sore throat Start:23-Mar-2019 Instruction Type:Patient Education How to access health informa tion online - Detail Indication:Sore throat Start:23-Mar-2019 Instruction Type:Patient Education Patient Instructions Indication:Sore throat Start:23-Mar-2019 Instruction Type:Provider Instructions for Treatment How to access health informa tion online Indication:Nonsmoker Start:02-Mar-2019 Instruction Type:Patient Education How to access health informa tion online - Detail Indication:Nonsmoker Start:02-Mar-2019 Instruction Type:Patient Education Patient Instructions Indication:Nonsmoker Start:02-Mar-2019 Instruction Type:Provider Instructions for Treatment Patient Instructions Indication:Upper respiratory infection, viral Start:18-Oct-2018 Instruction Type:Provider Instructions for Treatment How to access health informa tion online Indication:Nonsmoker Start:18-Oct-2018 Instruction Type:Patient Education How to access health informa tion online - Detail Indication:Nonsmoker Start:18-Oct-2018 Instruction Type:Patient Education How to access health informa tion online Indication:BMI 40.0-44.9, adult Start:05-May-2018 Instruction Type:Patient Education How to access health informa tion online - Detail Indication:BMI 40.0-44.9, adult Start:05-May-2018 Instruction Type:Patient Education Patient Instructions Indication:BMI 40.0-44.9, adult Start:05-May-2018 Instruction Type:Provider Instructions for Treatment How to access health informa tion online Indication:Nonsmoker Start:23-Feb-2018 Instruction Type:Patient Education How to access health informa tion online - Detail Indication:Nonsmoker Start:23-Feb-2018 Instruction Type:Patient Education Patient Instructions Indication:Nonsmoker Start:23-Feb-2018 Instruction Type:Provider Instructions for Treatment How to access health informa tion online Indication:BMI 40.0-44.9, adult Start:15-Feb-2018 Instruction Type:Patient Education How to access health informa tion online - Detail Indication:BMI 40.0-44.9, adult Start:15-Feb-2018 Instruction Type:Patient Education Patient Instructions Indication:Decreased range of motion of left lower extremity Start:15-Feb-2018 Instruction Type:Provider Instructions for Treatment How to access health informa tion online Indication:BMI 40.0-44.9, adult Start:14-Dec-2017 Instruction Type:Patient Education How to access health informa tion online - Detail Indication:BMI 40.0-44.9, adult Start:14-Dec-2017 Instruction Type:Patient Education Patient Instructions Indication:BMI 40.0-44.9, adult Start:14-Dec-2017 Instruction Type:Provider Instructions for Treatment How to access health informa tion online Indication:BMI 40.0-44.9, adult Start:11-Aug-2017 Instruction Type:Patient Education How to access health informa tion online - Detail Indication:BMI 40.0-44.9, adult Start:11-Aug-2017 Instruction Type:Patient Education Patient Instructions Indication:Acute asthma exacerbation (Renamed from Asthma with acute exacerbation) Start:11-Aug-2017 Instruction Type:Provider Instructions for Treatment How to access health informa tion online Indication:BMI 40.0-44.9, adult Start:10-Aug-2017 Instruction Type:Patient Education How to access health informa tion online - Detail Indication:BMI 40.0-44.9, adult Start:10-Aug-2017 Instruction Type:Patient Education Patient Instructions Indication:Acute asthma exacerbation (Renamed from Asthma with acute exacerbation) Start:10-Aug-2017 Instruction Type:Provider Instructions for Treatment How to access health informa tion online Indication:Cough Start:05-Aug-2017 Instruction Type:Patient Education How to access health informa tion online - Detail Indication:Cough Start:05-Aug-2017 Instruction Type:Patient Education Patient Instructions Indication:Cough Start:05-Aug-2017 Instruction Type:Provider Instructions for Treatment DISCONTINUED - LIPID PANEL ( [id number]) Indication:SCREENING FOR HYPERLIPIDEMIA (Renamed from Encounter for screening for lipoid disorders) Start:06-May-2017 Instruction Type:Patient Education How to access health informa tion online Indication:Sinus pressure Start:06-May-2017 Instruction Type:Patient Education How to access health informa tion online - Detail Indication:Sinus pressure Start:06-May-2017 Instruction Type:Patient Education Patient Instructions Indication:Sinus pressure Start:06-May-2017 Instruction Type:Provider Instructions for Treatment How to access health informa tion online Indication:Flu-like symptoms Start:30-Mar-2017 Instruction Type:Patient Education How to access health informa tion online - Detail Indication:Flu-like symptoms Start:30-Mar-2017 Instruction Type:Patient Education Patient Instructions Indication:Flu-like symptoms Start:30-Mar-2017 Instruction Type:Provider Instructions for Treatment How to access health informa tion online Indication:Low back pain potentially associated with radiculopathy Start:02-Nov-2015 Instruction Type:Patient Education How to access health informa tion online - Detail Indication:Low back pain potentially associated with radiculopathy Start:02-Nov-2015 Instruction Type:Patient Education Patient Instructions Indication:Low back pain potentially associated with radiculopathy Start:02-Nov-2015 Instruction Type:Provider Instructions for Treatment How to access health informa tion online Indication:Wheezing (Renamed from Asthmatic breathing) Start:23-Jan-2014 Instruction Type:Patient Education How to access health informa tion online - Detail Indication:Wheezing (Renamed from Asthmatic breathing) Start:23-Jan-2014 Instruction Type:Patient Education Patient Instructions Indication:Wheezing (Renamed from Asthmatic breathing) Start:23-Jan-2014 Instruction Type:Provider Instructions for Treatment How to access health informa tion online Indication:Breast pain Start:12-Jan-2014 Instruction Type:Patient Education How to access health informa tion online - Detail Indication:Breast pain Start:12-Jan-2014 Instruction Type:Patient Education Patient Instructions Indication:Breast pain Start:12-Jan-2014 Instruction Type:Provider Instructions for Treatment Patient Instructions Indication:Acid reflux Start:31-Aug-2013 Instruction Type:Provider Instructions for Treatment [facility]; [facility] Work Phone: Instructions* Name Dates Details Patient Instructions Indication:Left ankle pain Start:01-Oct-2021 Instruction Type:Provider Instructions for Treatment How to Access Health Informa tion Online using Patient Portal and [employer] Apps Indication:Left ankle pain Start:01-Oct-2021 Instruction Type:Patient Education Patient Instructions Indication:BMI 39.0-39.9,adult Start:30-Jul-2021 Instruction Type:Provider Instructions for Treatment How to Access Health Informa tion Online using Patient Portal and [employer] Apps Indication:BMI 39.0-39.9,adult Start:30-Jul-2021 Instruction Type:Patient Education Patient Instructions Indication:Non-smoker Start:14-Jun-2021 Instruction Type:Provider Instructions for Treatment How to Access Health Informa tion Online using Patient Portal and [employer] Apps Indication:Non-smoker Start:14-Jun-2021 Instruction Type:Patient Education Patient Instructions Indication:BMI 39.0-39.9,adult Start:13-May-2021 Instruction Type:Provider Instructions for Treatment How to Access Health Informa tion Online using Patient Portal and [employer] Apps Indication:BMI 39.0-39.9,adult Start:13-May-2021 Instruction Type:Patient Education Patient Instructions Indication:Non-smoker Start:11-Jan-2021 Instruction Type:Provider Instructions for Treatment How to Access Health Informa tion Online using Patient Portal and [employer] Apps Indication:Non-smoker Start:11-Jan-2021 Instruction Type:Patient Education Patient Instructions Indication:Right flank pain Start:30-Aug-2020 Instruction Type:Provider Instructions for Treatment How to Access Health Informa tion Online using Patient Portal and [employer] Apps Indication:Right flank pain Start:30-Aug-2020 Instruction Type:Patient Education How to Access Health Informa tion Online using Patient Portal and [employer] Apps Indication:Nonsmoker Start:21-Jun-2020 Instruction Type:Patient Education Patient Instructions Indication:Nonsmoker Start:21-Jun-2020 Instruction Type:Provider Instructions for Treatment How to access health informa tion online Indication:BMI 40.0-44.9, adult Start:16-Mar-2020 Instruction Type:Patient Education How to access health informa tion online - Detail Indication:BMI 40.0-44.9, adult Start:16-Mar-2020 Instruction Type:Patient Education Patient Instructions Indication:BMI 40.0-44.9, adult Start:16-Mar-2020 Instruction Type:Provider Instructions for Treatment How to access health informa tion online Indication:Obesity, morbid, BMI 40.0-49.9 Start:24-Jan-2020 Instruction Type:Patient Education How to access health informa tion online - Detail Indication:Obesity, morbid, BMI 40.0-49.9 Start:24-Jan-2020 Instruction Type:Patient Education Patient Instructions Indication:Obesity, morbid, BMI 40.0-49.9 Start:24-Jan-2020 Instruction Type:Provider Instructions for Treatment How to access health informa tion online Indication:Nonsmoker Start:05-Dec-2019 Instruction Type:Patient Education How to access health informa tion online - Detail Indication:Nonsmoker Start:05-Dec-2019 Instruction Type:Patient Education Patient Instructions Indication:Nonsmoker Start:05-Dec-2019 Instruction Type:Provider Instructions for Treatment How to access health informa tion online Indication:Sore throat Start:23-Mar-2019 Instruction Type:Patient Education How to access health informa tion online - Detail Indication:Sore throat Start:23-Mar-2019 Instruction Type:Patient Education Patient Instructions Indication:Sore throat Start:23-Mar-2019 Instruction Type:Provider Instructions for Treatment How to access health informa tion online Indication:Nonsmoker Start:02-Mar-2019 Instruction Type:Patient Education How to access health informa tion online - Detail Indication:Nonsmoker Start:02-Mar-2019 Instruction Type:Patient Education Patient Instructions Indication:Nonsmoker Start:02-Mar-2019 Instruction Type:Provider Instructions for Treatment Patient Instructions Indication:Upper respiratory infection, viral Start:18-Oct-2018 Instruction Type:Provider Instructions for Treatment How to access health informa tion online Indication:Nonsmoker Start:18-Oct-2018 Instruction Type:Patient Education How to access health informa tion online - Detail Indication:Nonsmoker Start:18-Oct-2018 Instruction Type:Patient Education How to access health informa tion online Indication:BMI 40.0-44.9, adult Start:05-May-2018 Instruction Type:Patient Education How to access health informa tion online - Detail Indication:BMI 40.0-44.9, adult Start:05-May-2018 Instruction Type:Patient Education Patient Instructions Indication:BMI 40.0-44.9, adult Start:05-May-2018 Instruction Type:Provider Instructions for Treatment How to access health informa tion online Indication:Nonsmoker Start:23-Feb-2018 Instruction Type:Patient Education How to access health informa tion online - Detail Indication:Nonsmoker Start:23-Feb-2018 Instruction Type:Patient Education Patient Instructions Indication:Nonsmoker Start:23-Feb-2018 Instruction Type:Provider Instructions for Treatment How to access health informa tion online Indication:BMI 40.0-44.9, adult Start:15-Feb-2018 Instruction Type:Patient Education How to access health informa tion online - Detail Indication:BMI 40.0-44.9, adult Start:15-Feb-2018 Instruction Type:Patient Education Patient Instructions Indication:Decreased range of motion of left lower extremity Start:15-Feb-2018 Instruction Type:Provider Instructions for Treatment How to access health informa tion online Indication:BMI 40.0-44.9, adult Start:14-Dec-2017 Instruction Type:Patient Education How to access health informa tion online - Detail Indication:BMI 40.0-44.9, adult Start:14-Dec-2017 Instruction Type:Patient Education Patient Instructions Indication:BMI 40.0-44.9, adult Start:14-Dec-2017 Instruction Type:Provider Instructions for Treatment How to access health informa tion online Indication:BMI 40.0-44.9, adult Start:11-Aug-2017 Instruction Type:Patient Education How to access health informa tion online - Detail Indication:BMI 40.0-44.9, adult Start:11-Aug-2017 Instruction Type:Patient Education Patient Instructions Indication:Acute asthma exacerbation (Renamed from Asthma with acute exacerbation) Start:11-Aug-2017 Instruction Type:Provider Instructions for Treatment How to access health informa tion online Indication:BMI 40.0-44.9, adult Start:10-Aug-2017 Instruction Type:Patient Education How to access health informa tion online - Detail Indication:BMI 40.0-44.9, adult Start:10-Aug-2017 Instruction Type:Patient Education Patient Instructions Indication:Acute asthma exacerbation (Renamed from Asthma with acute exacerbation) Start:10-Aug-2017 Instruction Type:Provider Instructions for Treatment How to access health informa tion online Indication:Cough Start:05-Aug-2017 Instruction Type:Patient Education How to access health informa tion online - Detail Indication:Cough Start:05-Aug-2017 Instruction Type:Patient Education Patient Instructions Indication:Cough Start:05-Aug-2017 Instruction Type:Provider Instructions for Treatment DISCONTINUED - LIPID PANEL ( [id number]) Indication:SCREENING FOR HYPERLIPIDEMIA (Renamed from Encounter for screening for lipoid disorders) Start:06-May-2017 Instruction Type:Patient Education How to access health informa tion online Indication:Sinus pressure Start:06-May-2017 Instruction Type:Patient Education How to access health informa tion online - Detail Indication:Sinus pressure Start:06-May-2017 Instruction Type:Patient Education Patient Instructions Indication:Sinus pressure Start:06-May-2017 Instruction Type:Provider Instructions for Treatment How to access health informa tion online Indication:Flu-like symptoms Start:30-Mar-2017 Instruction Type:Patient Education How to access health informa tion online - Detail Indication:Flu-like symptoms Start:30-Mar-2017 Instruction Type:Patient Education Patient Instructions Indication:Flu-like symptoms Start:30-Mar-2017 Instruction Type:Provider Instructions for Treatment How to access health informa tion online Indication:Low back pain potentially associated with radiculopathy Start:02-Nov-2015 Instruction Type:Patient Education How to access health informa tion online - Detail Indication:Low back pain potentially associated with radiculopathy Start:02-Nov-2015 Instruction Type:Patient Education Patient Instructions Indication:Low back pain potentially associated with radiculopathy Start:02-Nov-2015 Instruction Type:Provider Instructions for Treatment How to access health informa tion online Indication:Wheezing (Renamed from Asthmatic breathing) Start:23-Jan-2014 Instruction Type:Patient Education How to access health informa tion online - Detail Indication:Wheezing (Renamed from Asthmatic breathing) Start:23-Jan-2014 Instruction Type:Patient Education Patient Instructions Indication:Wheezing (Renamed from Asthmatic breathing) Start:23-Jan-2014 Instruction Type:Provider Instructions for Treatment How to access health informa tion online Indication:Breast pain Start:12-Jan-2014 Instruction Type:Patient Education How to access health informa tion online - Detail Indication:Breast pain Start:12-Jan-2014 Instruction Type:Patient Education Patient Instructions Indication:Breast pain Start:12-Jan-2014 Instruction Type:Provider Instructions for Treatment Patient Instructions Indication:Acid reflux Start:31-Aug-2013 Instruction Type:Provider Instructions for Treatment [facility]; [facility] Work Phone: Instructions* Name Dates Details Patient Instructions Indication:Left ankle pain Start:01-Oct-2021 Instruction Type:Provider Instructions for Treatment How to Access Health Informa tion Online using Patient Portal and [employer] Apps Indication:Left ankle pain Start:01-Oct-2021 Instruction Type:Patient Education Patient Instructions Indication:BMI 39.0-39.9,adult Start:30-Jul-2021 Instruction Type:Provider Instructions for Treatment How to Access Health Informa tion Online using Patient Portal and [employer] Indication:BMI 39.0-39.9,adult Start:30-Jul-2021 Instruction Type:Patient Education Patient Instructions Indication:Non-smoker Start:14-Jun-2021 Instruction Type:Provider Instructions for Treatment How to Access Health Informa tion Online using Patient Portal and [employer] Apps Indication:Non-smoker Start:14-Jun-2021 Instruction Type:Patient Education Patient Instructions Indication:BMI 39.0-39.9,adult Start:13-May-2021 Instruction Type:Provider Instructions for Treatment How to Access Health Informa tion Online using Patient Portal and [employer] Indication:BMI 39.0-39.9,adult Start:13-May-2021 Instruction Type:Patient Education Patient Instructions Indication:Non-smoker Start:11-Jan-2021 Instruction Type:Provider Instructions for Treatment How to Access Health Informa tion Online using Patient Portal and [employer] Indication:Non-smoker Start:11-Jan-2021 Instruction Type:Patient Education Patient Instructions Indication:Right flank pain Start:30-Aug-2020 Instruction Type:Provider Instructions for Treatment How to Access Health Informa tion Online using Patient Portal and [employer] Indication:Right flank pain Start:30-Aug-2020 Instruction Type:Patient Education How to Access Health Informa tion Online using Patient Portal and [employer] Indication:Nonsmoker Start:21-Jun-2020 Instruction Type:Patient Education Patient Instructions Indication:Nonsmoker Start:21-Jun-2020 Instruction Type:Provider Instructions for Treatment How to access health informa tion online Indication:BMI 40.0-44.9, adult Start:16-Mar-2020 Instruction Type:Patient Education How to access health informa tion online - Detail Indication:BMI 40.0-44.9, adult Start:16-Mar-2020 Instruction Type:Patient Education Patient Instructions Indication:BMI 40.0-44.9, adult Start:16-Mar-2020 Instruction Type:Provider Instructions for Treatment How to access health informa tion online Indication:Obesity, morbid, BMI 40.0-49.9 Start:24-Jan-2020 Instruction Type:Patient Education How to access health informa tion online - Detail Indication:Obesity, morbid, BMI 40.0-49.9 Start:24-Jan-2020 Instruction Type:Patient Education Patient Instructions Indication:Obesity, morbid, BMI 40.0-49.9 Start:24-Jan-2020 Instruction Type:Provider Instructions for Treatment How to access health informa tion online Indication:Nonsmoker Start:05-Dec-2019 Instruction Type:Patient Education How to access health informa tion online - Detail Indication:Nonsmoker Start:05-Dec-2019 Instruction Type:Patient Education Patient Instructions Indication:Nonsmoker Start:05-Dec-2019 Instruction Type:Provider Instructions for Treatment How to access health informa tion online Indication:Sore throat Start:23-Mar-2019 Instruction Type:Patient Education How to access health informa tion online - Detail Indication:Sore throat Start:23-Mar-2019 Instruction Type:Patient Education Patient Instructions Indication:Sore throat Start:23-Mar-2019 Instruction Type:Provider Instructions for Treatment How to access health informa tion online Indication:Nonsmoker Start:02-Mar-2019 Instruction Type:Patient Education How to access health informa tion online - Detail Indication:Nonsmoker Start:02-Mar-2019 Instruction Type:Patient Education Patient Instructions Indication:Nonsmoker Start:02-Mar-2019 Instruction Type:Provider Instructions for Treatment Patient Instructions Indication:Upper respiratory infection, viral Start:18-Oct-2018 Instruction Type:Provider Instructions for Treatment How to access health informa tion online Indication:Nonsmoker Start:18-Oct-2018 Instruction Type:Patient Education How to access health informa tion online - Detail Indication:Nonsmoker Start:18-Oct-2018 Instruction Type:Patient Education How to access health informa tion online Indication:BMI 40.0-44.9, adult Start:05-May-2018 Instruction Type:Patient Education How to access health informa tion online - Detail Indication:BMI 40.0-44.9, adult Start:05-May-2018 Instruction Type:Patient Education Patient Instructions Indication:BMI 40.0-44.9, adult Start:05-May-2018 Instruction Type:Provider Instructions for Treatment How to access health informa tion online Indication:Nonsmoker Start:23-Feb-2018 Instruction Type:Patient Education How to access health informa tion online - Detail Indication:Nonsmoker Start:23-Feb-2018 Instruction Type:Patient Education Patient Instructions Indication:Nonsmoker Start:23-Feb-2018 Instruction Type:Provider Instructions for Treatment How to access health informa tion online Indication:BMI 40.0-44.9, adult Start:15-Feb-2018 Instruction Type:Patient Education How to access health informa tion online - Detail Indication:BMI 40.0-44.9, adult Start:15-Feb-2018 Instruction Type:Patient Education Patient Instructions Indication:Decreased range of motion of left lower extremity Start:15-Feb-2018 Instruction Type:Provider Instructions for Treatment How to access health informa tion online Indication:BMI 40.0-44.9, adult Start:14-Dec-2017 Instruction Type:Patient Education How to access health informa tion online - Detail Indication:BMI 40.0-44.9, adult Start:14-Dec-2017 Instruction Type:Patient Education Patient Instructions Indication:BMI 40.0-44.9, adult Start:14-Dec-2017 Instruction Type:Provider Instructions for Treatment How to access health informa tion online Indication:BMI 40.0-44.9, adult Start:11-Aug-2017 Instruction Type:Patient Education How to access health informa tion online - Detail Indication:BMI 40.0-44.9, adult Start:11-Aug-2017 Instruction Type:Patient Education Patient Instructions Indication:Acute asthma exacerbation (Renamed from Asthma with acute exacerbation) Start:11-Aug-2017 Instruction Type:Provider Instructions for Treatment How to access health informa tion online Indication:BMI 40.0-44.9, adult Start:10-Aug-2017 Instruction Type:Patient Education How to access health informa tion online - Detail Indication:BMI 40.0-44.9, adult Start:10-Aug-2017 Instruction Type:Patient Education Patient Instructions Indication:Acute asthma exacerbation (Renamed from Asthma with acute exacerbation) Start:10-Aug-2017 Instruction Type:Provider Instructions for Treatment How to access health informa tion online Indication:Cough Start:05-Aug-2017 Instruction Type:Patient Education How to access health informa tion online - Detail Indication:Cough Start:05-Aug-2017 Instruction Type:Patient Education Patient Instructions Indication:Cough Start:05-Aug-2017 Instruction Type:Provider Instructions for Treatment DISCONTINUED - LIPID PANEL ( 17073) Indication:SCREENING FOR HYPERLIPIDEMIA (Renamed from Encounter for screening for lipoid disorders) Start:06-May-2017 Instruction Type:Patient Education How to access health informa tion online Indication:Sinus pressure Start:06-May-2017 Instruction Type:Patient Education How to access health informa tion online - Detail Indication:Sinus pressure Start:06-May-2017 Instruction Type:Patient Education Patient Instructions Indication:Sinus pressure Start:06-May-2017 Instruction Type:Provider Instructions for Treatment How to access health informa tion online Indication:Flu-like symptoms Start:30-Mar-2017 Instruction Type:Patient Education How to access health informa tion online - Detail Indication:Flu-like symptoms Start:30-Mar-2017 Instruction Type:Patient Education Patient Instructions Indication:Flu-like symptoms Start:30-Mar-2017 Instruction Type:Provider Instructions for Treatment How to access health informa tion online Indication:Low back pain potentially associated with radiculopathy Start:02-Nov-2015 Instruction Type:Patient Education How to access health informa tion online - Detail Indication:Low back pain potentially associated with radiculopathy Start:02-Nov-2015 Instruction Type:Patient Education Patient Instructions Indication:Low back pain potentially associated with radiculopathy Start:02-Nov-2015 Instruction Type:Provider Instructions for Treatment How to access health informa tion online Indication:Wheezing (Renamed from Asthmatic breathing) Start:23-Jan-2014 Instruction Type:Patient Education How to access health informa tion online - Detail Indication:Wheezing (Renamed from Asthmatic breathing) Start:23-Jan-2014 Instruction Type:Patient Education Patient Instructions Indication:Wheezing (Renamed from Asthmatic breathing) Start:23-Jan-2014 Instruction Type:Provider Instructions for Treatment How to access health informa tion online Indication:Breast pain Start:12-Jan-2014 Instruction Type:Patient Education How to access health informa tion online - Detail Indication:Breast pain Start:12-Jan-2014 Instruction Type:Patient Education Patient Instructions Indication:Breast pain Start:12-Jan-2014 Instruction Type:Provider Instructions for Treatment Patient Instructions Indication:Acid reflux Start:31-Aug-2013 Instruction Type:Provider Instructions for Treatment [facility]; [facility] Work Phone: Instructions* Name Dates Details Patient Instructions Indication:Left ankle pain Start:01-Oct-2021 Instruction Type:Provider Instructions for Treatment How to Access Health Informa tion Online using Patient Portal and [employer] Apps Indication:Left ankle pain Start:01-Oct-2021 Instruction Type:Patient Education Patient Instructions Indication:BMI 39.0-39.9,adult Start:30-Jul-2021 Instruction Type:Provider Instructions for Treatment How to Access Health Informa tion Online using Patient Portal and [employer] Apps Indication:BMI 39.0-39.9,adult Start:30-Jul-2021 Instruction Type:Patient Education Patient Instructions Indication:Non-smoker Start:14-Jun-2021 Instruction Type:Provider Instructions for Treatment How to Access Health Informa tion Online using Patient Portal and [employer] Apps Indication:Non-smoker Start:14-Jun-2021 Instruction Type:Patient Education Patient Instructions Indication:BMI 39.0-39.9,adult Start:13-May-2021 Instruction Type:Provider Instructions for Treatment How to Access Health Informa tion Online using Patient Portal and [employer] Apps Indication:BMI 39.0-39.9,adult Start:13-May-2021 Instruction Type:Patient Education Patient Instructions Indication:Non-smoker Start:11-Jan-2021 Instruction Type:Provider Instructions for Treatment How to Access Health Informa tion Online using Patient Portal and [employer] Apps Indication:Non-smoker Start:11-Jan-2021 Instruction Type:Patient Education Patient Instructions Indication:Right flank pain Start:30-Aug-2020 Instruction Type:Provider Instructions for Treatment How to Access Health Informa tion Online using Patient Portal and [employer] Apps Indication:Right flank pain Start:30-Aug-2020 Instruction Type:Patient Education How to Access Health Informa tion Online using Patient Portal and [employer] Apps Indication:Nonsmoker Start:21-Jun-2020 Instruction Type:Patient Education Patient Instructions Indication:Nonsmoker Start:21-Jun-2020 Instruction Type:Provider Instructions for Treatment How to access health informa tion online Indication:BMI 40.0-44.9, adult Start:16-Mar-2020 Instruction Type:Patient Education How to access health informa tion online - Detail Indication:BMI 40.0-44.9, adult Start:16-Mar-2020 Instruction Type:Patient Education Patient Instructions Indication:BMI 40.0-44.9, adult Start:16-Mar-2020 Instruction Type:Provider Instructions for Treatment How to access health informa tion online Indication:Obesity, morbid, BMI 40.0-49.9 Start:24-Jan-2020 Instruction Type:Patient Education How to access health informa tion online - Detail Indication:Obesity, morbid, BMI 40.0-49.9 Start:24-Jan-2020 Instruction Type:Patient Education Patient Instructions Indication:Obesity, morbid, BMI 40.0-49.9 Start:24-Jan-2020 Instruction Type:Provider Instructions for Treatment How to access health informa tion online Indication:Nonsmoker Start:05-Dec-2019 Instruction Type:Patient Education How to access health informa tion online - Detail Indication:Nonsmoker Start:05-Dec-2019 Instruction Type:Patient Education Patient Instructions Indication:Nonsmoker Start:05-Dec-2019 Instruction Type:Provider Instructions for Treatment How to access health informa tion online Indication:Sore throat Start:23-Mar-2019 Instruction Type:Patient Education How to access health informa tion online - Detail Indication:Sore throat Start:23-Mar-2019 Instruction Type:Patient Education Patient Instructions Indication:Sore throat Start:23-Mar-2019 Instruction Type:Provider Instructions for Treatment How to access health informa tion online Indication:Nonsmoker Start:02-Mar-2019 Instruction Type:Patient Education How to access health informa tion online - Detail Indication:Nonsmoker Start:02-Mar-2019 Instruction Type:Patient Education Patient Instructions Indication:Nonsmoker Start:02-Mar-2019 Instruction Type:Provider Instructions for Treatment Patient Instructions Indication:Upper respiratory infection, viral Start:18-Oct-2018 Instruction Type:Provider Instructions for Treatment How to access health informa tion online Indication:Nonsmoker Start:18-Oct-2018 Instruction Type:Patient Education How to access health informa tion online - Detail Indication:Nonsmoker Start:18-Oct-2018 Instruction Type:Patient Education How to access health informa tion online Indication:BMI 40.0-44.9, adult Start:05-May-2018 Instruction Type:Patient Education How to access health informa tion online - Detail Indication:BMI 40.0-44.9, adult Start:05-May-2018 Instruction Type:Patient Education Patient Instructions Indication:BMI 40.0-44.9, adult Start:05-May-2018 Instruction Type:Provider Instructions for Treatment How to access health informa tion online Indication:Nonsmoker Start:23-Feb-2018 Instruction Type:Patient Education How to access health informa tion online - Detail Indication:Nonsmoker Start:23-Feb-2018 Instruction Type:Patient Education Patient Instructions Indication:Nonsmoker Start:23-Feb-2018 Instruction Type:Provider Instructions for Treatment How to access health informa tion online Indication:BMI 40.0-44.9, adult Start:15-Feb-2018 Instruction Type:Patient Education How to access health informa tion online - Detail Indication:BMI 40.0-44.9, adult Start:15-Feb-2018 Instruction Type:Patient Education Patient Instructions Indication:Decreased range of motion of left lower extremity Start:15-Feb-2018 Instruction Type:Provider Instructions for Treatment How to access health informa tion online Indication:BMI 40.0-44.9, adult Start:14-Dec-2017 Instruction Type:Patient Education How to access health informa tion online - Detail Indication:BMI 40.0-44.9, adult Start:14-Dec-2017 Instruction Type:Patient Education Patient Instructions Indication:BMI 40.0-44.9, adult Start:14-Dec-2017 Instruction Type:Provider Instructions for Treatment How to access health informa tion online Indication:BMI 40.0-44.9, adult Start:11-Aug-2017 Instruction Type:Patient Education How to access health informa tion online - Detail Indication:BMI 40.0-44.9, adult Start:11-Aug-2017 Instruction Type:Patient Education Patient Instructions Indication:Acute asthma exacerbation (Renamed from Asthma with acute exacerbation) Start:11-Aug-2017 Instruction Type:Provider Instructions for Treatment How to access health informa tion online Indication:BMI 40.0-44.9, adult Start:10-Aug-2017 Instruction Type:Patient Education How to access health informa tion online - Detail Indication:BMI 40.0-44.9, adult Start:10-Aug-2017 Instruction Type:Patient Education Patient Instructions Indication:Acute asthma exacerbation (Renamed from Asthma with acute exacerbation) Start:10-Aug-2017 Instruction Type:Provider Instructions for Treatment How to access health informa tion online Indication:Cough Start:05-Aug-2017 Instruction Type:Patient Education How to access health informa tion online - Detail Indication:Cough Start:05-Aug-2017 Instruction Type:Patient Education Patient Instructions Indication:Cough Start:05-Aug-2017 Instruction Type:Provider Instructions for Treatment DISCONTINUED - LIPID PANEL ( [id number]) Indication:SCREENING FOR HYPERLIPIDEMIA (Renamed from Encounter for screening for lipoid disorders) Start:06-May-2017 Instruction Type:Patient Education How to access health informa tion online Indication:Sinus pressure Start:06-May-2017 Instruction Type:Patient Education How to access health informa tion online - Detail Indication:Sinus pressure Start:06-May-2017 Instruction Type:Patient Education Patient Instructions Indication:Sinus pressure Start:06-May-2017 Instruction Type:Provider Instructions for Treatment How to access health informa tion online Indication:Flu-like symptoms Start:30-Mar-2017 Instruction Type:Patient Education How to access health informa tion online - Detail Indication:Flu-like symptoms Start:30-Mar-2017 Instruction Type:Patient Education Patient Instructions Indication:Flu-like symptoms Start:30-Mar-2017 Instruction Type:Provider Instructions for Treatment How to access health informa tion online Indication:Low back pain potentially associated with radiculopathy Start:02-Nov-2015 Instruction Type:Patient Education How to access health informa tion online - Detail Indication:Low back pain potentially associated with radiculopathy Start:02-Nov-2015 Instruction Type:Patient Education Patient Instructions Indication:Low back pain potentially associated with radiculopathy Start:02-Nov-2015 Instruction Type:Provider Instructions for Treatment How to access health informa tion online Indication:Wheezing (Renamed from Asthmatic breathing) Start:23-Jan-2014 Instruction Type:Patient Education How to access health informa tion online - Detail Indication:Wheezing (Renamed from Asthmatic breathing) Start:23-Jan-2014 Instruction Type:Patient Education Patient Instructions Indication:Wheezing (Renamed from Asthmatic breathing) Start:23-Jan-2014 Instruction Type:Provider Instructions for Treatment How to access health informa tion online Indication:Breast pain Start:12-Jan-2014 Instruction Type:Patient Education How to access health informa tion online - Detail Indication:Breast pain Start:12-Jan-2014 Instruction Type:Patient Education Patient Instructions Indication:Breast pain Start:12-Jan-2014 Instruction Type:Provider Instructions for Treatment Patient Instructions Indication:Acid reflux Start:31-Aug-2013 Instruction Type:Provider Instructions for Treatment [facility]; [facility] Work Phone: Instructions* Name Dates Details Patient Instructions Indication:Left ankle pain Start:01-Oct-2021 Instruction Type:Provider Instructions for Treatment How to Access Health Informa tion Online using Patient Portal and [employer] Apps Indication:Left ankle pain Start:01-Oct-2021 Instruction Type:Patient Education Patient Instructions Indication:BMI 39.0-39.9,adult Start:30-Jul-2021 Instruction Type:Provider Instructions for Treatment How to Access Health Informa tion Online using Patient Portal and [employer] Apps Indication:BMI 39.0-39.9,adult Start:30-Jul-2021 Instruction Type:Patient Education Patient Instructions Indication:Non-smoker Start:14-Jun-2021 Instruction Type:Provider Instructions for Treatment How to Access Health Informa tion Online using Patient Portal and [employer] Apps Indication:Non-smoker Start:14-Jun-2021 Instruction Type:Patient Education Patient Instructions Indication:BMI 39.0-39.9,adult Start:13-May-2021 Instruction Type:Provider Instructions for Treatment How to Access Health Informa tion Online using Patient Portal and [employer] Indication:BMI 39.0-39.9,adult Start:13-May-2021 Instruction Type:Patient Education Patient Instructions Indication:Non-smoker Start:11-Jan-2021 Instruction Type:Provider Instructions for Treatment How to Access Health Informa tion Online using Patient Portal and [employer] Indication:Non-smoker Start:11-Jan-2021 Instruction Type:Patient Education Patient Instructions Indication:Right flank pain Start:30-Aug-2020 Instruction Type:Provider Instructions for Treatment How to Access Health Informa tion Online using Patient Portal and [employer] Apps Indication:Right flank pain Start:30-Aug-2020 Instruction Type:Patient Education How to Access Health Informa tion Online using Patient Portal and [employer] Apps Indication:Nonsmoker Start:21-Jun-2020 Instruction Type:Patient Education Patient Instructions Indication:Nonsmoker Start:21-Jun-2020 Instruction Type:Provider Instructions for Treatment How to access health informa tion online Indication:BMI 40.0-44.9, adult Start:16-Mar-2020 Instruction Type:Patient Education How to access health informa tion online - Detail Indication:BMI 40.0-44.9, adult Start:16-Mar-2020 Instruction Type:Patient Education Patient Instructions Indication:BMI 40.0-44.9, adult Start:16-Mar-2020 Instruction Type:Provider Instructions for Treatment How to access health informa tion online Indication:Obesity, morbid, BMI 40.0-49.9 Start:24-Jan-2020 Instruction Type:Patient Education How to access health informa tion online - Detail Indication:Obesity, morbid, BMI 40.0-49.9 Start:24-Jan-2020 Instruction Type:Patient Education Patient Instructions Indication:Obesity, morbid, BMI 40.0-49.9 Start:24-Jan-2020 Instruction Type:Provider Instructions for Treatment How to access health informa tion online Indication:Nonsmoker Start:05-Dec-2019 Instruction Type:Patient Education How to access health informa tion online - Detail Indication:Nonsmoker Start:05-Dec-2019 Instruction Type:Patient Education Patient Instructions Indication:Nonsmoker Start:05-Dec-2019 Instruction Type:Provider Instructions for Treatment How to access health informa tion online Indication:Sore throat Start:23-Mar-2019 Instruction Type:Patient Education How to access health informa tion online - Detail Indication:Sore throat Start:23-Mar-2019 Instruction Type:Patient Education Patient Instructions Indication:Sore throat Start:23-Mar-2019 Instruction Type:Provider Instructions for Treatment How to access health informa tion online Indication:Nonsmoker Start:02-Mar-2019 Instruction Type:Patient Education How to access health informa tion online - Detail Indication:Nonsmoker Start:02-Mar-2019 Instruction Type:Patient Education Patient Instructions Indication:Nonsmoker Start:02-Mar-2019 Instruction Type:Provider Instructions for Treatment Patient Instructions Indication:Upper respiratory infection, viral Start:18-Oct-2018 Instruction Type:Provider Instructions for Treatment How to access health informa tion online Indication:Nonsmoker Start:18-Oct-2018 Instruction Type:Patient Education How to access health informa tion online - Detail Indication:Nonsmoker Start:18-Oct-2018 Instruction Type:Patient Education How to access health informa tion online Indication:BMI 40.0-44.9, adult Start:05-May-2018 Instruction Type:Patient Education How to access health informa tion online - Detail Indication:BMI 40.0-44.9, adult Start:05-May-2018 Instruction Type:Patient Education Patient Instructions Indication:BMI 40.0-44.9, adult Start:05-May-2018 Instruction Type:Provider Instructions for Treatment How to access health informa tion online Indication:Nonsmoker Start:23-Feb-2018 Instruction Type:Patient Education How to access health informa tion online - Detail Indication:Nonsmoker Start:23-Feb-2018 Instruction Type:Patient Education Patient Instructions Indication:Nonsmoker Start:23-Feb-2018 Instruction Type:Provider Instructions for Treatment How to access health informa tion online Indication:BMI 40.0-44.9, adult Start:15-Feb-2018 Instruction Type:Patient Education How to access health informa tion online - Detail Indication:BMI 40.0-44.9, adult Start:15-Feb-2018 Instruction Type:Patient Education Patient Instructions Indication:Decreased range of motion of left lower extremity Start:15-Feb-2018 Instruction Type:Provider Instructions for Treatment How to access health informa tion online Indication:BMI 40.0-44.9, adult Start:14-Dec-2017 Instruction Type:Patient Education How to access health informa tion online - Detail Indication:BMI 40.0-44.9, adult Start:14-Dec-2017 Instruction Type:Patient Education Patient Instructions Indication:BMI 40.0-44.9, adult Start:14-Dec-2017 Instruction Type:Provider Instructions for Treatment How to access health informa tion online Indication:BMI 40.0-44.9, adult Start:11-Aug-2017 Instruction Type:Patient Education How to access health informa tion online - Detail Indication:BMI 40.0-44.9, adult Start:11-Aug-2017 Instruction Type:Patient Education Patient Instructions Indication:Acute asthma exacerbation (Renamed from Asthma with acute exacerbation) Start:11-Aug-2017 Instruction Type:Provider Instructions for Treatment How to access health informa tion online Indication:BMI 40.0-44.9, adult Start:10-Aug-2017 Instruction Type:Patient Education How to access health informa tion online - Detail Indication:BMI 40.0-44.9, adult Start:10-Aug-2017 Instruction Type:Patient Education Patient Instructions Indication:Acute asthma exacerbation (Renamed from Asthma with acute exacerbation) Start:10-Aug-2017 Instruction Type:Provider Instructions for Treatment How to access health informa tion online Indication:Cough Start:05-Aug-2017 Instruction Type:Patient Education How to access health informa tion online - Detail Indication:Cough Start:05-Aug-2017 Instruction Type:Patient Education Patient Instructions Indication:Cough Start:05-Aug-2017 Instruction Type:Provider Instructions for Treatment DISCONTINUED - LIPID PANEL ( [id number]) Indication:SCREENING FOR HYPERLIPIDEMIA (Renamed from Encounter for screening for lipoid disorders) Start:06-May-2017 Instruction Type:Patient Education How to access health informa tion online Indication:Sinus pressure Start:06-May-2017 Instruction Type:Patient Education How to access health informa tion online - Detail Indication:Sinus pressure Start:06-May-2017 Instruction Type:Patient Education Patient Instructions Indication:Sinus pressure Start:06-May-2017 Instruction Type:Provider Instructions for Treatment How to access health informa tion online Indication:Flu-like symptoms Start:30-Mar-2017 Instruction Type:Patient Education How to access health informa tion online - Detail Indication:Flu-like symptoms Start:30-Mar-2017 Instruction Type:Patient Education Patient Instructions Indication:Flu-like symptoms Start:30-Mar-2017 Instruction Type:Provider Instructions for Treatment How to access health informa tion online Indication:Low back pain potentially associated with radiculopathy Start:02-Nov-2015 Instruction Type:Patient Education How to access health informa tion online - Detail Indication:Low back pain potentially associated with radiculopathy Start:02-Nov-2015 Instruction Type:Patient Education Patient Instructions Indication:Low back pain potentially associated with radiculopathy Start:02-Nov-2015 Instruction Type:Provider Instructions for Treatment How to access health informa tion online Indication:Wheezing (Renamed from Asthmatic breathing) Start:23-Jan-2014 Instruction Type:Patient Education How to access health informa tion online - Detail Indication:Wheezing (Renamed from Asthmatic breathing) Start:23-Jan-2014 Instruction Type:Patient Education Patient Instructions Indication:Wheezing (Renamed from Asthmatic breathing) Start:23-Jan-2014 Instruction Type:Provider Instructions for Treatment How to access health informa tion online Indication:Breast pain Start:12-Jan-2014 Instruction Type:Patient Education How to access health informa tion online - Detail Indication:Breast pain Start:12-Jan-2014 Instruction Type:Patient Education Patient Instructions Indication:Breast pain Start:12-Jan-2014 Instruction Type:Provider Instructions for Treatment Patient Instructions Indication:Acid reflux Start:31-Aug-2013 Instruction Type:Provider Instructions for Treatment [facility]; [facility] Work Phone: Instructions* Name Dates Details Patient Instructions Indication:Left ankle pain Start:01-Oct-2021 Instruction Type:Provider Instructions for Treatment How to Access Health Informa tion Online using Patient Portal and [employer] Indication:Left ankle pain Start:01-Oct-2021 Instruction Type:Patient Education Patient Instructions Indication:BMI 39.0-39.9,adult Start:30-Jul-2021 Instruction Type:Provider Instructions for Treatment How to Access Health Informa tion Online using Patient Portal and [employer] Indication:BMI 39.0-39.9,adult Start:30-Jul-2021 Instruction Type:Patient Education Patient Instructions Indication:Non-smoker Start:14-Jun-2021 Instruction Type:Provider Instructions for Treatment How to Access Health Informa tion Online using Patient Portal and [employer] Indication:Non-smoker Start:14-Jun-2021 Instruction Type:Patient Education Patient Instructions Indication:BMI 39.0-39.9,adult Start:13-May-2021 Instruction Type:Provider Instructions for Treatment How to Access Health Informa tion Online using Patient Portal and [employer] Indication:BMI 39.0-39.9,adult Start:13-May-2021 Instruction Type:Patient Education Patient Instructions Indication:Non-smoker Start:11-Jan-2021 Instruction Type:Provider Instructions for Treatment How to Access Health Informa tion Online using Patient Portal and [employer] Indication:Non-smoker Start:11-Jan-2021 Instruction Type:Patient Education Patient Instructions Indication:Right flank pain Start:30-Aug-2020 Instruction Type:Provider Instructions for Treatment How to Access Health Informa tion Online using Patient Portal and [employer] Apps Indication:Right flank pain Start:30-Aug-2020 Instruction Type:Patient Education How to Access Health Informa tion Online using Patient Portal and [employer] Apps Indication:Nonsmoker Start:21-Jun-2020 Instruction Type:Patient Education Patient Instructions Indication:Nonsmoker Start:21-Jun-2020 Instruction Type:Provider Instructions for Treatment How to access health informa tion online Indication:BMI 40.0-44.9, adult Start:16-Mar-2020 Instruction Type:Patient Education How to access health informa tion online - Detail Indication:BMI 40.0-44.9, adult Start:16-Mar-2020 Instruction Type:Patient Education Patient Instructions Indication:BMI 40.0-44.9, adult Start:16-Mar-2020 Instruction Type:Provider Instructions for Treatment How to access health informa tion online Indication:Obesity, morbid, BMI 40.0-49.9 Start:24-Jan-2020 Instruction Type:Patient Education How to access health informa tion online - Detail Indication:Obesity, morbid, BMI 40.0-49.9 Start:24-Jan-2020 Instruction Type:Patient Education Patient Instructions Indication:Obesity, morbid, BMI 40.0-49.9 Start:24-Jan-2020 Instruction Type:Provider Instructions for Treatment How to access health informa tion online Indication:Nonsmoker Start:05-Dec-2019 Instruction Type:Patient Education How to access health informa tion online - Detail Indication:Nonsmoker Start:05-Dec-2019 Instruction Type:Patient Education Patient Instructions Indication:Nonsmoker Start:05-Dec-2019 Instruction Type:Provider Instructions for Treatment How to access health informa tion online Indication:Sore throat Start:23-Mar-2019 Instruction Type:Patient Education How to access health informa tion online - Detail Indication:Sore throat Start:23-Mar-2019 Instruction Type:Patient Education Patient Instructions Indication:Sore throat Start:23-Mar-2019 Instruction Type:Provider Instructions for Treatment How to access health informa tion online Indication:Nonsmoker Start:02-Mar-2019 Instruction Type:Patient Education How to access health informa tion online - Detail Indication:Nonsmoker Start:02-Mar-2019 Instruction Type:Patient Education Patient Instructions Indication:Nonsmoker Start:02-Mar-2019 Instruction Type:Provider Instructions for Treatment Patient Instructions Indication:Upper respiratory infection, viral Start:18-Oct-2018 Instruction Type:Provider Instructions for Treatment How to access health informa tion online Indication:Nonsmoker Start:18-Oct-2018 Instruction Type:Patient Education How to access health informa tion online - Detail Indication:Nonsmoker Start:18-Oct-2018 Instruction Type:Patient Education How to access health informa tion online Indication:BMI 40.0-44.9, adult Start:05-May-2018 Instruction Type:Patient Education How to access health informa tion online - Detail Indication:BMI 40.0-44.9, adult Start:05-May-2018 Instruction Type:Patient Education Patient Instructions Indication:BMI 40.0-44.9, adult Start:05-May-2018 Instruction Type:Provider Instructions for Treatment How to access health informa tion online Indication:Nonsmoker Start:23-Feb-2018 Instruction Type:Patient Education How to access health informa tion online - Detail Indication:Nonsmoker Start:23-Feb-2018 Instruction Type:Patient Education Patient Instructions Indication:Nonsmoker Start:23-Feb-2018 Instruction Type:Provider Instructions for Treatment How to access health informa tion online Indication:BMI 40.0-44.9, adult Start:15-Feb-2018 Instruction Type:Patient Education How to access health informa tion online - Detail Indication:BMI 40.0-44.9, adult Start:15-Feb-2018 Instruction Type:Patient Education Patient Instructions Indication:Decreased range of motion of left lower extremity Start:15-Feb-2018 Instruction Type:Provider Instructions for Treatment How to access health informa tion online Indication:BMI 40.0-44.9, adult Start:14-Dec-2017 Instruction Type:Patient Education How to access health informa tion online - Detail Indication:BMI 40.0-44.9, adult Start:14-Dec-2017 Instruction Type:Patient Education Patient Instructions Indication:BMI 40.0-44.9, adult Start:14-Dec-2017 Instruction Type:Provider Instructions for Treatment How to access health informa tion online Indication:BMI 40.0-44.9, adult Start:11-Aug-2017 Instruction Type:Patient Education How to access health informa tion online - Detail Indication:BMI 40.0-44.9, adult Start:11-Aug-2017 Instruction Type:Patient Education Patient Instructions Indication:Acute asthma exacerbation (Renamed from Asthma with acute exacerbation) Start:11-Aug-2017 Instruction Type:Provider Instructions for Treatment How to access health informa tion online Indication:BMI 40.0-44.9, adult Start:10-Aug-2017 Instruction Type:Patient Education How to access health informa tion online - Detail Indication:BMI 40.0-44.9, adult Start:10-Aug-2017 Instruction Type:Patient Education Patient Instructions Indication:Acute asthma exacerbation (Renamed from Asthma with acute exacerbation) Start:10-Aug-2017 Instruction Type:Provider Instructions for Treatment How to access health informa tion online Indication:Cough Start:05-Aug-2017 Instruction Type:Patient Education How to access health informa tion online - Detail Indication:Cough Start:05-Aug-2017 Instruction Type:Patient Education Patient Instructions Indication:Cough Start:05-Aug-2017 Instruction Type:Provider Instructions for Treatment DISCONTINUED - LIPID PANEL ( 23024) Indication:SCREENING FOR HYPERLIPIDEMIA (Renamed from Encounter for screening for lipoid disorders) Start:06-May-2017 Instruction Type:Patient Education How to access health informa tion online Indication:Sinus pressure Start:06-May-2017 Instruction Type:Patient Education How to access health informa tion online - Detail Indication:Sinus pressure Start:06-May-2017 Instruction Type:Patient Education Patient Instructions Indication:Sinus pressure Start:06-May-2017 Instruction Type:Provider Instructions for Treatment How to access health informa tion online Indication:Flu-like symptoms Start:30-Mar-2017 Instruction Type:Patient Education How to access health informa tion online - Detail Indication:Flu-like symptoms Start:30-Mar-2017 Instruction Type:Patient Education Patient Instructions Indication:Flu-like symptoms Start:30-Mar-2017 Instruction Type:Provider Instructions for Treatment How to access health informa tion online Indication:Low back pain potentially associated with radiculopathy Start:02-Nov-2015 Instruction Type:Patient Education How to access health informa tion online - Detail Indication:Low back pain potentially associated with radiculopathy Start:02-Nov-2015 Instruction Type:Patient Education Patient Instructions Indication:Low back pain potentially associated with radiculopathy Start:02-Nov-2015 Instruction Type:Provider Instructions for Treatment How to access health informa tion online Indication:Wheezing (Renamed from Asthmatic breathing) Start:23-Jan-2014 Instruction Type:Patient Education How to access health informa tion online - Detail Indication:Wheezing (Renamed from Asthmatic breathing) Start:23-Jan-2014 Instruction Type:Patient Education Patient Instructions Indication:Wheezing (Renamed from Asthmatic breathing) Start:23-Jan-2014 Instruction Type:Provider Instructions for Treatment How to access health informa tion online Indication:Breast pain Start:12-Jan-2014 Instruction Type:Patient Education How to access health informa tion online - Detail Indication:Breast pain Start:12-Jan-2014 Instruction Type:Patient Education Patient Instructions Indication:Breast pain Start:12-Jan-2014 Instruction Type:Provider Instructions for Treatment Patient Instructions Indication:Acid reflux Start:31-Aug-2013 Instruction Type:Provider Instructions for Treatment [facility]; [facility] Work Phone: Instructions* Name Dates Details Patient Instructions Indication:Left ankle pain Start:01-Oct-2021 Instruction Type:Provider Instructions for Treatment How to Access Health Informa tion Online using Patient Portal and [employer] Apps Indication:Left ankle pain Start:01-Oct-2021 Instruction Type:Patient Education Patient Instructions Indication:BMI 39.0-39.9,adult Start:30-Jul-2021 Instruction Type:Provider Instructions for Treatment How to Access Health Informa tion Online using Patient Portal and [employer] Apps Indication:BMI 39.0-39.9,adult Start:30-Jul-2021 Instruction Type:Patient Education Patient Instructions Indication:Non-smoker Start:14-Jun-2021 Instruction Type:Provider Instructions for Treatment How to Access Health Informa tion Online using Patient Portal and [employer] Indication:Non-smoker Start:14-Jun-2021 Instruction Type:Patient Education Patient Instructions Indication:BMI 39.0-39.9,adult Start:13-May-2021 Instruction Type:Provider Instructions for Treatment How to Access Health Informa tion Online using Patient Portal and [employer] Indication:BMI 39.0-39.9,adult Start:13-May-2021 Instruction Type:Patient Education Patient Instructions Indication:Non-smoker Start:11-Jan-2021 Instruction Type:Provider Instructions for Treatment How to Access Health Informa tion Online using Patient Portal and [employer] Indication:Non-smoker Start:11-Jan-2021 Instruction Type:Patient Education Patient Instructions Indication:Right flank pain Start:30-Aug-2020 Instruction Type:Provider Instructions for Treatment How to Access Health Informa tion Online using Patient Portal and [employer] Indication:Right flank pain Start:30-Aug-2020 Instruction Type:Patient Education How to Access Health Informa tion Online using Patient Portal and [employer] Indication:Nonsmoker Start:21-Jun-2020 Instruction Type:Patient Education Patient Instructions Indication:Nonsmoker Start:21-Jun-2020 Instruction Type:Provider Instructions for Treatment How to access health informa tion online Indication:BMI 40.0-44.9, adult Start:16-Mar-2020 Instruction Type:Patient Education How to access health informa tion online - Detail Indication:BMI 40.0-44.9, adult Start:16-Mar-2020 Instruction Type:Patient Education Patient Instructions Indication:BMI 40.0-44.9, adult Start:16-Mar-2020 Instruction Type:Provider Instructions for Treatment How to access health informa tion online Indication:Obesity, morbid, BMI 40.0-49.9 Start:24-Jan-2020 Instruction Type:Patient Education How to access health informa tion online - Detail Indication:Obesity, morbid, BMI 40.0-49.9 Start:24-Jan-2020 Instruction Type:Patient Education Patient Instructions Indication:Obesity, morbid, BMI 40.0-49.9 Start:24-Jan-2020 Instruction Type:Provider Instructions for Treatment How to access health informa tion online Indication:Nonsmoker Start:05-Dec-2019 Instruction Type:Patient Education How to access health informa tion online - Detail Indication:Nonsmoker Start:05-Dec-2019 Instruction Type:Patient Education Patient Instructions Indication:Nonsmoker Start:05-Dec-2019 Instruction Type:Provider Instructions for Treatment How to access health informa tion online Indication:Sore throat Start:23-Mar-2019 Instruction Type:Patient Education How to access health informa tion online - Detail Indication:Sore throat Start:23-Mar-2019 Instruction Type:Patient Education Patient Instructions Indication:Sore throat Start:23-Mar-2019 Instruction Type:Provider Instructions for Treatment How to access health informa tion online Indication:Nonsmoker Start:02-Mar-2019 Instruction Type:Patient Education How to access health informa tion online - Detail Indication:Nonsmoker Start:02-Mar-2019 Instruction Type:Patient Education Patient Instructions Indication:Nonsmoker Start:02-Mar-2019 Instruction Type:Provider Instructions for Treatment Patient Instructions Indication:Upper respiratory infection, viral Start:18-Oct-2018 Instruction Type:Provider Instructions for Treatment How to access health informa tion online Indication:Nonsmoker Start:18-Oct-2018 Instruction Type:Patient Education How to access health informa tion online - Detail Indication:Nonsmoker Start:18-Oct-2018 Instruction Type:Patient Education How to access health informa tion online Indication:BMI 40.0-44.9, adult Start:05-May-2018 Instruction Type:Patient Education How to access health informa tion online - Detail Indication:BMI 40.0-44.9, adult Start:05-May-2018 Instruction Type:Patient Education Patient Instructions Indication:BMI 40.0-44.9, adult Start:05-May-2018 Instruction Type:Provider Instructions for Treatment How to access health informa tion online Indication:Nonsmoker Start:23-Feb-2018 Instruction Type:Patient Education How to access health informa tion online - Detail Indication:Nonsmoker Start:23-Feb-2018 Instruction Type:Patient Education Patient Instructions Indication:Nonsmoker Start:23-Feb-2018 Instruction Type:Provider Instructions for Treatment How to access health informa tion online Indication:BMI 40.0-44.9, adult Start:15-Feb-2018 Instruction Type:Patient Education How to access health informa tion online - Detail Indication:BMI 40.0-44.9, adult Start:15-Feb-2018 Instruction Type:Patient Education Patient Instructions Indication:Decreased range of motion of left lower extremity Start:15-Feb-2018 Instruction Type:Provider Instructions for Treatment How to access health informa tion online Indication:BMI 40.0-44.9, adult Start:14-Dec-2017 Instruction Type:Patient Education How to access health informa tion online - Detail Indication:BMI 40.0-44.9, adult Start:14-Dec-2017 Instruction Type:Patient Education Patient Instructions Indication:BMI 40.0-44.9, adult Start:14-Dec-2017 Instruction Type:Provider Instructions for Treatment How to access health informa tion online Indication:BMI 40.0-44.9, adult Start:11-Aug-2017 Instruction Type:Patient Education How to access health informa tion online - Detail Indication:BMI 40.0-44.9, adult Start:11-Aug-2017 Instruction Type:Patient Education Patient Instructions Indication:Acute asthma exacerbation (Renamed from Asthma with acute exacerbation) Start:11-Aug-2017 Instruction Type:Provider Instructions for Treatment How to access health informa tion online Indication:BMI 40.0-44.9, adult Start:10-Aug-2017 Instruction Type:Patient Education How to access health informa tion online - Detail Indication:BMI 40.0-44.9, adult Start:10-Aug-2017 Instruction Type:Patient Education Patient Instructions Indication:Acute asthma exacerbation (Renamed from Asthma with acute exacerbation) Start:10-Aug-2017 Instruction Type:Provider Instructions for Treatment How to access health informa tion online Indication:Cough Start:05-Aug-2017 Instruction Type:Patient Education How to access health informa tion online - Detail Indication:Cough Start:05-Aug-2017 Instruction Type:Patient Education Patient Instructions Indication:Cough Start:05-Aug-2017 Instruction Type:Provider Instructions for Treatment DISCONTINUED - LIPID PANEL ( 94075) Indication:SCREENING FOR HYPERLIPIDEMIA (Renamed from Encounter for screening for lipoid disorders) Start:06-May-2017 Instruction Type:Patient Education How to access health informa tion online Indication:Sinus pressure Start:06-May-2017 Instruction Type:Patient Education How to access health informa tion online - Detail Indication:Sinus pressure Start:06-May-2017 Instruction Type:Patient Education Patient Instructions Indication:Sinus pressure Start:06-May-2017 Instruction Type:Provider Instructions for Treatment How to access health informa tion online Indication:Flu-like symptoms Start:30-Mar-2017 Instruction Type:Patient Education How to access health informa tion online - Detail Indication:Flu-like symptoms Start:30-Mar-2017 Instruction Type:Patient Education Patient Instructions Indication:Flu-like symptoms Start:30-Mar-2017 Instruction Type:Provider Instructions for Treatment How to access health informa tion online Indication:Low back pain potentially associated with radiculopathy Start:02-Nov-2015 Instruction Type:Patient Education How to access health informa tion online - Detail Indication:Low back pain potentially associated with radiculopathy Start:02-Nov-2015 Instruction Type:Patient Education Patient Instructions Indication:Low back pain potentially associated with radiculopathy Start:02-Nov-2015 Instruction Type:Provider Instructions for Treatment How to access health informa tion online Indication:Wheezing (Renamed from Asthmatic breathing) Start:23-Jan-2014 Instruction Type:Patient Education How to access health informa tion online - Detail Indication:Wheezing (Renamed from Asthmatic breathing) Start:23-Jan-2014 Instruction Type:Patient Education Patient Instructions Indication:Wheezing (Renamed from Asthmatic breathing) Start:23-Jan-2014 Instruction Type:Provider Instructions for Treatment How to access health informa tion online Indication:Breast pain Start:12-Jan-2014 Instruction Type:Patient Education How to access health informa tion online - Detail Indication:Breast pain Start:12-Jan-2014 Instruction Type:Patient Education Patient Instructions Indication:Breast pain Start:12-Jan-2014 Instruction Type:Provider Instructions for Treatment Patient Instructions Indication:Acid reflux Start:31-Aug-2013 Instruction Type:Provider Instructions for Treatment [facility]; [facility] Work Phone: Instructions* Name Dates Details Patient Instructions Indication:Left ankle pain Start:01-Oct-2021 Instruction Type:Provider Instructions for Treatment How to Access Health Informa tion Online using Patient Portal and [employer] Indication:Left ankle pain Start:01-Oct-2021 Instruction Type:Patient Education Patient Instructions Indication:BMI 39.0-39.9,adult Start:30-Jul-2021 Instruction Type:Provider Instructions for Treatment How to Access Health Informa tion Online using Patient Portal and [employer] Indication:BMI 39.0-39.9,adult Start:30-Jul-2021 Instruction Type:Patient Education Patient Instructions Indication:Non-smoker Start:14-Jun-2021 Instruction Type:Provider Instructions for Treatment How to Access Health Informa tion Online using Patient Portal and [employer] Indication:Non-smoker Start:14-Jun-2021 Instruction Type:Patient Education Patient Instructions Indication:BMI 39.0-39.9,adult Start:13-May-2021 Instruction Type:Provider Instructions for Treatment How to Access Health Informa tion Online using Patient Portal and [employer] Indication:BMI 39.0-39.9,adult Start:13-May-2021 Instruction Type:Patient Education Patient Instructions Indication:Non-smoker Start:11-Jan-2021 Instruction Type:Provider Instructions for Treatment How to Access Health Informa tion Online using Patient Portal and [employer] Indication:Non-smoker Start:11-Jan-2021 Instruction Type:Patient Education Patient Instructions Indication:Right flank pain Start:30-Aug-2020 Instruction Type:Provider Instructions for Treatment How to Access Health Informa tion Online using Patient Portal and [employer] Indication:Right flank pain Start:30-Aug-2020 Instruction Type:Patient Education How to Access Health Informa tion Online using Patient Portal and [employer] Indication:Nonsmoker Start:21-Jun-2020 Instruction Type:Patient Education Patient Instructions Indication:Nonsmoker Start:21-Jun-2020 Instruction Type:Provider Instructions for Treatment How to access health informa tion online Indication:BMI 40.0-44.9, adult Start:16-Mar-2020 Instruction Type:Patient Education How to access health informa tion online - Detail Indication:BMI 40.0-44.9, adult Start:16-Mar-2020 Instruction Type:Patient Education Patient Instructions Indication:BMI 40.0-44.9, adult Start:16-Mar-2020 Instruction Type:Provider Instructions for Treatment How to access health informa tion online Indication:Obesity, morbid, BMI 40.0-49.9 Start:24-Jan-2020 Instruction Type:Patient Education How to access health informa tion online - Detail Indication:Obesity, morbid, BMI 40.0-49.9 Start:24-Jan-2020 Instruction Type:Patient Education Patient Instructions Indication:Obesity, morbid, BMI 40.0-49.9 Start:24-Jan-2020 Instruction Type:Provider Instructions for Treatment How to access health informa tion online Indication:Nonsmoker Start:05-Dec-2019 Instruction Type:Patient Education How to access health informa tion online - Detail Indication:Nonsmoker Start:05-Dec-2019 Instruction Type:Patient Education Patient Instructions Indication:Nonsmoker Start:05-Dec-2019 Instruction Type:Provider Instructions for Treatment How to access health informa tion online Indication:Sore throat Start:23-Mar-2019 Instruction Type:Patient Education How to access health informa tion online - Detail Indication:Sore throat Start:23-Mar-2019 Instruction Type:Patient Education Patient Instructions Indication:Sore throat Start:23-Mar-2019 Instruction Type:Provider Instructions for Treatment How to access health informa tion online Indication:Nonsmoker Start:02-Mar-2019 Instruction Type:Patient Education How to access health informa tion online - Detail Indication:Nonsmoker Start:02-Mar-2019 Instruction Type:Patient Education Patient Instructions Indication:Nonsmoker Start:02-Mar-2019 Instruction Type:Provider Instructions for Treatment Patient Instructions Indication:Upper respiratory infection, viral Start:18-Oct-2018 Instruction Type:Provider Instructions for Treatment How to access health informa tion online Indication:Nonsmoker Start:18-Oct-2018 Instruction Type:Patient Education How to access health informa tion online - Detail Indication:Nonsmoker Start:18-Oct-2018 Instruction Type:Patient Education How to access health informa tion online Indication:BMI 40.0-44.9, adult Start:05-May-2018 Instruction Type:Patient Education How to access health informa tion online - Detail Indication:BMI 40.0-44.9, adult Start:05-May-2018 Instruction Type:Patient Education Patient Instructions Indication:BMI 40.0-44.9, adult Start:05-May-2018 Instruction Type:Provider Instructions for Treatment How to access health informa tion online Indication:Nonsmoker Start:23-Feb-2018 Instruction Type:Patient Education How to access health informa tion online - Detail Indication:Nonsmoker Start:23-Feb-2018 Instruction Type:Patient Education Patient Instructions Indication:Nonsmoker Start:23-Feb-2018 Instruction Type:Provider Instructions for Treatment How to access health informa tion online Indication:BMI 40.0-44.9, adult Start:15-Feb-2018 Instruction Type:Patient Education How to access health informa tion online - Detail Indication:BMI 40.0-44.9, adult Start:15-Feb-2018 Instruction Type:Patient Education Patient Instructions Indication:Decreased range of motion of left lower extremity Start:15-Feb-2018 Instruction Type:Provider Instructions for Treatment How to access health informa tion online Indication:BMI 40.0-44.9, adult Start:14-Dec-2017 Instruction Type:Patient Education How to access health informa tion online - Detail Indication:BMI 40.0-44.9, adult Start:14-Dec-2017 Instruction Type:Patient Education Patient Instructions Indication:BMI 40.0-44.9, adult Start:14-Dec-2017 Instruction Type:Provider Instructions for Treatment How to access health informa tion online Indication:BMI 40.0-44.9, adult Start:11-Aug-2017 Instruction Type:Patient Education How to access health informa tion online - Detail Indication:BMI 40.0-44.9, adult Start:11-Aug-2017 Instruction Type:Patient Education Patient Instructions Indication:Acute asthma exacerbation (Renamed from Asthma with acute exacerbation) Start:11-Aug-2017 Instruction Type:Provider Instructions for Treatment How to access health informa tion online Indication:BMI 40.0-44.9, adult Start:10-Aug-2017 Instruction Type:Patient Education How to access health informa tion online - Detail Indication:BMI 40.0-44.9, adult Start:10-Aug-2017 Instruction Type:Patient Education Patient Instructions Indication:Acute asthma exacerbation (Renamed from Asthma with acute exacerbation) Start:10-Aug-2017 Instruction Type:Provider Instructions for Treatment How to access health informa tion online Indication:Cough Start:05-Aug-2017 Instruction Type:Patient Education How to access health informa tion online - Detail Indication:Cough Start:05-Aug-2017 Instruction Type:Patient Education Patient Instructions Indication:Cough Start:05-Aug-2017 Instruction Type:Provider Instructions for Treatment DISCONTINUED - LIPID PANEL ( 62442) Indication:SCREENING FOR HYPERLIPIDEMIA (Renamed from Encounter for screening for lipoid disorders) Start:06-May-2017 Instruction Type:Patient Education How to access health informa tion online Indication:Sinus pressure Start:06-May-2017 Instruction Type:Patient Education How to access health informa tion online - Detail Indication:Sinus pressure Start:06-May-2017 Instruction Type:Patient Education Patient Instructions Indication:Sinus pressure Start:06-May-2017 Instruction Type:Provider Instructions for Treatment How to access health informa tion online Indication:Flu-like symptoms Start:30-Mar-2017 Instruction Type:Patient Education How to access health informa tion online - Detail Indication:Flu-like symptoms Start:30-Mar-2017 Instruction Type:Patient Education Patient Instructions Indication:Flu-like symptoms Start:30-Mar-2017 Instruction Type:Provider Instructions for Treatment How to access health informa tion online Indication:Low back pain potentially associated with radiculopathy Start:02-Nov-2015 Instruction Type:Patient Education How to access health informa tion online - Detail Indication:Low back pain potentially associated with radiculopathy Start:02-Nov-2015 Instruction Type:Patient Education Patient Instructions Indication:Low back pain potentially associated with radiculopathy Start:02-Nov-2015 Instruction Type:Provider Instructions for Treatment How to access health informa tion online Indication:Wheezing (Renamed from Asthmatic breathing) Start:23-Jan-2014 Instruction Type:Patient Education How to access health informa tion online - Detail Indication:Wheezing (Renamed from Asthmatic breathing) Start:23-Jan-2014 Instruction Type:Patient Education Patient Instructions Indication:Wheezing (Renamed from Asthmatic breathing) Start:23-Jan-2014 Instruction Type:Provider Instructions for Treatment How to access health informa tion online Indication:Breast pain Start:12-Jan-2014 Instruction Type:Patient Education How to access health informa tion online - Detail Indication:Breast pain Start:12-Jan-2014 Instruction Type:Patient Education Patient Instructions Indication:Breast pain Start:12-Jan-2014 Instruction Type:Provider Instructions for Treatment Patient Instructions Indication:Acid reflux Start:31-Aug-2013 Instruction Type:Provider Instructions for Treatment [facility]; [facility] Work Phone: Instructions* Name Dates Details Patient Instructions Indication:Non-smoker Start:09-Jul-2022 Instruction Type:Provider Instructions for Treatment How to Access Health Informa tion Online using Patient Portal and [employer] Apps Indication:Non-smoker Start:09-Jul-2022 Instruction Type:Patient Education Patient Instructions Indication:Left ankle pain Start:01-Oct-2021 Instruction Type:Provider Instructions for Treatment How to Access Health Informa tion Online using Patient Portal and [employer] Apps Indication:Left ankle pain Start:01-Oct-2021 Instruction Type:Patient Education Patient Instructions Indication:BMI 39.0-39.9,adult Start:30-Jul-2021 Instruction Type:Provider Instructions for Treatment How to Access Health Informa tion Online using Patient Portal and [employer] Apps Indication:BMI 39.0-39.9,adult Start:30-Jul-2021 Instruction Type:Patient Education Patient Instructions Indication:Non-smoker Start:14-Jun-2021 Instruction Type:Provider Instructions for Treatment How to Access Health Informa tion Online using Patient Portal and [employer] Apps Indication:Non-smoker Start:14-Jun-2021 Instruction Type:Patient Education Patient Instructions Indication:BMI 39.0-39.9,adult Start:13-May-2021 Instruction Type:Provider Instructions for Treatment How to Access Health Informa tion Online using Patient Portal and [employer] Apps Indication:BMI 39.0-39.9,adult Start:13-May-2021 Instruction Type:Patient Education Patient Instructions Indication:Non-smoker Start:11-Jan-2021 Instruction Type:Provider Instructions for Treatment How to Access Health Informa tion Online using Patient Portal and [employer] Apps Indication:Non-smoker Start:11-Jan-2021 Instruction Type:Patient Education Patient Instructions Indication:Right flank pain Start:30-Aug-2020 Instruction Type:Provider Instructions for Treatment How to Access Health Informa tion Online using Patient Portal and [employer] Apps Indication:Right flank pain Start:30-Aug-2020 Instruction Type:Patient Education How to Access Health Informa tion Online using Patient Portal and [employer] Apps Indication:Nonsmoker Start:21-Jun-2020 Instruction Type:Patient Education Patient Instructions Indication:Nonsmoker Start:21-Jun-2020 Instruction Type:Provider Instructions for Treatment How to access health informa tion online Indication:BMI 40.0-44.9, adult Start:16-Mar-2020 Instruction Type:Patient Education How to access health informa tion online - Detail Indication:BMI 40.0-44.9, adult Start:16-Mar-2020 Instruction Type:Patient Education Patient Instructions Indication:BMI 40.0-44.9, adult Start:16-Mar-2020 Instruction Type:Provider Instructions for Treatment How to access health informa tion online Indication:Obesity, morbid, BMI 40.0-49.9 Start:24-Jan-2020 Instruction Type:Patient Education How to access health informa tion online - Detail Indication:Obesity, morbid, BMI 40.0-49.9 Start:24-Jan-2020 Instruction Type:Patient Education Patient Instructions Indication:Obesity, morbid, BMI 40.0-49.9 Start:24-Jan-2020 Instruction Type:Provider Instructions for Treatment How to access health informa tion online Indication:Nonsmoker Start:05-Dec-2019 Instruction Type:Patient Education How to access health informa tion online - Detail Indication:Nonsmoker Start:05-Dec-2019 Instruction Type:Patient Education Patient Instructions Indication:Nonsmoker Start:05-Dec-2019 Instruction Type:Provider Instructions for Treatment How to access health informa tion online Indication:Sore throat Start:23-Mar-2019 Instruction Type:Patient Education How to access health informa tion online - Detail Indication:Sore throat Start:23-Mar-2019 Instruction Type:Patient Education Patient Instructions Indication:Sore throat Start:23-Mar-2019 Instruction Type:Provider Instructions for Treatment How to access health informa tion online Indication:Nonsmoker Start:02-Mar-2019 Instruction Type:Patient Education How to access health informa tion online - Detail Indication:Nonsmoker Start:02-Mar-2019 Instruction Type:Patient Education Patient Instructions Indication:Nonsmoker Start:02-Mar-2019 Instruction Type:Provider Instructions for Treatment Patient Instructions Indication:Upper respiratory infection, viral Start:18-Oct-2018 Instruction Type:Provider Instructions for Treatment How to access health informa tion online Indication:Nonsmoker Start:18-Oct-2018 Instruction Type:Patient Education How to access health informa tion online - Detail Indication:Nonsmoker Start:18-Oct-2018 Instruction Type:Patient Education How to access health informa tion online Indication:BMI 40.0-44.9, adult Start:05-May-2018 Instruction Type:Patient Education How to access health informa tion online - Detail Indication:BMI 40.0-44.9, adult Start:05-May-2018 Instruction Type:Patient Education Patient Instructions Indication:BMI 40.0-44.9, adult Start:05-May-2018 Instruction Type:Provider Instructions for Treatment How to access health informa tion online Indication:Nonsmoker Start:23-Feb-2018 Instruction Type:Patient Education How to access health informa tion online - Detail Indication:Nonsmoker Start:23-Feb-2018 Instruction Type:Patient Education Patient Instructions Indication:Nonsmoker Start:23-Feb-2018 Instruction Type:Provider Instructions for Treatment How to access health informa tion online Indication:BMI 40.0-44.9, adult Start:15-Feb-2018 Instruction Type:Patient Education How to access health informa tion online - Detail Indication:BMI 40.0-44.9, adult Start:15-Feb-2018 Instruction Type:Patient Education Patient Instructions Indication:Decreased range of motion of left lower extremity Start:15-Feb-2018 Instruction Type:Provider Instructions for Treatment How to access health informa tion online Indication:BMI 40.0-44.9, adult Start:14-Dec-2017 Instruction Type:Patient Education How to access health informa tion online - Detail Indication:BMI 40.0-44.9, adult Start:14-Dec-2017 Instruction Type:Patient Education Patient Instructions Indication:BMI 40.0-44.9, adult Start:14-Dec-2017 Instruction Type:Provider Instructions for Treatment How to access health informa tion online Indication:BMI 40.0-44.9, adult Start:11-Aug-2017 Instruction Type:Patient Education How to access health informa tion online - Detail Indication:BMI 40.0-44.9, adult Start:11-Aug-2017 Instruction Type:Patient Education Patient Instructions Indication:Acute asthma exacerbation (Renamed from Asthma with acute exacerbation) Start:11-Aug-2017 Instruction Type:Provider Instructions for Treatment How to access health informa tion online Indication:BMI 40.0-44.9, adult Start:10-Aug-2017 Instruction Type:Patient Education How to access health informa tion online - Detail Indication:BMI 40.0-44.9, adult Start:10-Aug-2017 Instruction Type:Patient Education Patient Instructions Indication:Acute asthma exacerbation (Renamed from Asthma with acute exacerbation) Start:10-Aug-2017 Instruction Type:Provider Instructions for Treatment How to access health informa tion online Indication:Cough Start:05-Aug-2017 Instruction Type:Patient Education How to access health informa tion online - Detail Indication:Cough Start:05-Aug-2017 Instruction Type:Patient Education Patient Instructions Indication:Cough Start:05-Aug-2017 Instruction Type:Provider Instructions for Treatment DISCONTINUED - LIPID PANEL ( 48912) Indication:SCREENING FOR HYPERLIPIDEMIA (Renamed from Encounter for screening for lipoid disorders) Start:06-May-2017 Instruction Type:Patient Education How to access health informa tion online Indication:Sinus pressure Start:06-May-2017 Instruction Type:Patient Education How to access health informa tion online - Detail Indication:Sinus pressure Start:06-May-2017 Instruction Type:Patient Education Patient Instructions Indication:Sinus pressure Start:06-May-2017 Instruction Type:Provider Instructions for Treatment How to access health informa tion online Indication:Flu-like symptoms Start:30-Mar-2017 Instruction Type:Patient Education How to access health informa tion online - Detail Indication:Flu-like symptoms Start:30-Mar-2017 Instruction Type:Patient Education Patient Instructions Indication:Flu-like symptoms Start:30-Mar-2017 Instruction Type:Provider Instructions for Treatment How to access health informa tion online Indication:Low back pain potentially associated with radiculopathy Start:02-Nov-2015 Instruction Type:Patient Education How to access health informa tion online - Detail Indication:Low back pain potentially associated with radiculopathy Start:02-Nov-2015 Instruction Type:Patient Education Patient Instructions Indication:Low back pain potentially associated with radiculopathy Start:02-Nov-2015 Instruction Type:Provider Instructions for Treatment How to access health informa tion online Indication:Wheezing (Renamed from Asthmatic breathing) Start:23-Jan-2014 Instruction Type:Patient Education How to access health informa tion online - Detail Indication:Wheezing (Renamed from Asthmatic breathing) Start:23-Jan-2014 Instruction Type:Patient Education Patient Instructions Indication:Wheezing (Renamed from Asthmatic breathing) Start:23-Jan-2014 Instruction Type:Provider Instructions for Treatment How to access health informa tion online Indication:Breast pain Start:12-Jan-2014 Instruction Type:Patient Education How to access health informa tion online - Detail Indication:Breast pain Start:12-Jan-2014 Instruction Type:Patient Education Patient Instructions Indication:Breast pain Start:12-Jan-2014 Instruction Type:Provider Instructions for Treatment Patient Instructions Indication:Acid reflux Start:31-Aug-2013 Instruction Type:Provider Instructions for Treatment [facility]; [facility] Work Phone: Instructions* Name Dates Details Patient Instructions Indication:Non-smoker Start:09-Jul-2022 Instruction Type:Provider Instructions for Treatment How to Access Health Informa tion Online using Patient Portal and [employer] Apps Indication:Non-smoker Start:09-Jul-2022 Instruction Type:Patient Education Patient Instructions Indication:Left ankle pain Start:01-Oct-2021 Instruction Type:Provider Instructions for Treatment How to Access Health Informa tion Online using Patient Portal and [employer] Apps Indication:Left ankle pain Start:01-Oct-2021 Instruction Type:Patient Education Patient Instructions Indication:BMI 39.0-39.9,adult Start:30-Jul-2021 Instruction Type:Provider Instructions for Treatment How to Access Health Informa tion Online using Patient Portal and [employer] Indication:BMI 39.0-39.9,adult Start:30-Jul-2021 Instruction Type:Patient Education Patient Instructions Indication:Non-smoker Start:14-Jun-2021 Instruction Type:Provider Instructions for Treatment How to Access Health Informa tion Online using Patient Portal and [employer] Apps Indication:Non-smoker Start:14-Jun-2021 Instruction Type:Patient Education Patient Instructions Indication:BMI 39.0-39.9,adult Start:13-May-2021 Instruction Type:Provider Instructions for Treatment How to Access Health Informa tion Online using Patient Portal and [employer] Indication:BMI 39.0-39.9,adult Start:13-May-2021 Instruction Type:Patient Education Patient Instructions Indication:Non-smoker Start:11-Jan-2021 Instruction Type:Provider Instructions for Treatment How to Access Health Informa tion Online using Patient Portal and [employer] Apps Indication:Non-smoker Start:11-Jan-2021 Instruction Type:Patient Education Patient Instructions Indication:Right flank pain Start:30-Aug-2020 Instruction Type:Provider Instructions for Treatment How to Access Health Informa tion Online using Patient Portal and [employer] Apps Indication:Right flank pain Start:30-Aug-2020 Instruction Type:Patient Education How to Access Health Informa tion Online using Patient Portal and [employer] Apps Indication:Nonsmoker Start:21-Jun-2020 Instruction Type:Patient Education Patient Instructions Indication:Nonsmoker Start:21-Jun-2020 Instruction Type:Provider Instructions for Treatment How to access health informa tion online Indication:BMI 40.0-44.9, adult Start:16-Mar-2020 Instruction Type:Patient Education How to access health informa tion online - Detail Indication:BMI 40.0-44.9, adult Start:16-Mar-2020 Instruction Type:Patient Education Patient Instructions Indication:BMI 40.0-44.9, adult Start:16-Mar-2020 Instruction Type:Provider Instructions for Treatment How to access health informa tion online Indication:Obesity, morbid, BMI 40.0-49.9 Start:24-Jan-2020 Instruction Type:Patient Education How to access health informa tion online - Detail Indication:Obesity, morbid, BMI 40.0-49.9 Start:24-Jan-2020 Instruction Type:Patient Education Patient Instructions Indication:Obesity, morbid, BMI 40.0-49.9 Start:24-Jan-2020 Instruction Type:Provider Instructions for Treatment How to access health informa tion online Indication:Nonsmoker Start:05-Dec-2019 Instruction Type:Patient Education How to access health informa tion online - Detail Indication:Nonsmoker Start:05-Dec-2019 Instruction Type:Patient Education Patient Instructions Indication:Nonsmoker Start:05-Dec-2019 Instruction Type:Provider Instructions for Treatment How to access health informa tion online Indication:Sore throat Start:23-Mar-2019 Instruction Type:Patient Education How to access health informa tion online - Detail Indication:Sore throat Start:23-Mar-2019 Instruction Type:Patient Education Patient Instructions Indication:Sore throat Start:23-Mar-2019 Instruction Type:Provider Instructions for Treatment How to access health informa tion online Indication:Nonsmoker Start:02-Mar-2019 Instruction Type:Patient Education How to access health informa tion online - Detail Indication:Nonsmoker Start:02-Mar-2019 Instruction Type:Patient Education Patient Instructions Indication:Nonsmoker Start:02-Mar-2019 Instruction Type:Provider Instructions for Treatment Patient Instructions Indication:Upper respiratory infection, viral Start:18-Oct-2018 Instruction Type:Provider Instructions for Treatment How to access health informa tion online Indication:Nonsmoker Start:18-Oct-2018 Instruction Type:Patient Education How to access health informa tion online - Detail Indication:Nonsmoker Start:18-Oct-2018 Instruction Type:Patient Education How to access health informa tion online Indication:BMI 40.0-44.9, adult Start:05-May-2018 Instruction Type:Patient Education How to access health informa tion online - Detail Indication:BMI 40.0-44.9, adult Start:05-May-2018 Instruction Type:Patient Education Patient Instructions Indication:BMI 40.0-44.9, adult Start:05-May-2018 Instruction Type:Provider Instructions for Treatment How to access health informa tion online Indication:Nonsmoker Start:23-Feb-2018 Instruction Type:Patient Education How to access health informa tion online - Detail Indication:Nonsmoker Start:23-Feb-2018 Instruction Type:Patient Education Patient Instructions Indication:Nonsmoker Start:23-Feb-2018 Instruction Type:Provider Instructions for Treatment How to access health informa tion online Indication:BMI 40.0-44.9, adult Start:15-Feb-2018 Instruction Type:Patient Education How to access health informa tion online - Detail Indication:BMI 40.0-44.9, adult Start:15-Feb-2018 Instruction Type:Patient Education Patient Instructions Indication:Decreased range of motion of left lower extremity Start:15-Feb-2018 Instruction Type:Provider Instructions for Treatment How to access health informa tion online Indication:BMI 40.0-44.9, adult Start:14-Dec-2017 Instruction Type:Patient Education How to access health informa tion online - Detail Indication:BMI 40.0-44.9, adult Start:14-Dec-2017 Instruction Type:Patient Education Patient Instructions Indication:BMI 40.0-44.9, adult Start:14-Dec-2017 Instruction Type:Provider Instructions for Treatment How to access health informa tion online Indication:BMI 40.0-44.9, adult Start:11-Aug-2017 Instruction Type:Patient Education How to access health informa tion online - Detail Indication:BMI 40.0-44.9, adult Start:11-Aug-2017 Instruction Type:Patient Education Patient Instructions Indication:Acute asthma exacerbation (Renamed from Asthma with acute exacerbation) Start:11-Aug-2017 Instruction Type:Provider Instructions for Treatment How to access health informa tion online Indication:BMI 40.0-44.9, adult Start:10-Aug-2017 Instruction Type:Patient Education How to access health informa tion online - Detail Indication:BMI 40.0-44.9, adult Start:10-Aug-2017 Instruction Type:Patient Education Patient Instructions Indication:Acute asthma exacerbation (Renamed from Asthma with acute exacerbation) Start:10-Aug-2017 Instruction Type:Provider Instructions for Treatment How to access health informa tion online Indication:Cough Start:05-Aug-2017 Instruction Type:Patient Education How to access health informa tion online - Detail Indication:Cough Start:05-Aug-2017 Instruction Type:Patient Education Patient Instructions Indication:Cough Start:05-Aug-2017 Instruction Type:Provider Instructions for Treatment DISCONTINUED - LIPID PANEL ( [id number]) Indication:SCREENING FOR HYPERLIPIDEMIA (Renamed from Encounter for screening for lipoid disorders) Start:06-May-2017 Instruction Type:Patient Education How to access health informa tion online Indication:Sinus pressure Start:06-May-2017 Instruction Type:Patient Education How to access health informa tion online - Detail Indication:Sinus pressure Start:06-May-2017 Instruction Type:Patient Education Patient Instructions Indication:Sinus pressure Start:06-May-2017 Instruction Type:Provider Instructions for Treatment How to access health informa tion online Indication:Flu-like symptoms Start:30-Mar-2017 Instruction Type:Patient Education How to access health informa tion online - Detail Indication:Flu-like symptoms Start:30-Mar-2017 Instruction Type:Patient Education Patient Instructions Indication:Flu-like symptoms Start:30-Mar-2017 Instruction Type:Provider Instructions for Treatment How to access health informa tion online Indication:Low back pain potentially associated with radiculopathy Start:02-Nov-2015 Instruction Type:Patient Education How to access health informa tion online - Detail Indication:Low back pain potentially associated with radiculopathy Start:02-Nov-2015 Instruction Type:Patient Education Patient Instructions Indication:Low back pain potentially associated with radiculopathy Start:02-Nov-2015 Instruction Type:Provider Instructions for Treatment How to access health informa tion online Indication:Wheezing (Renamed from Asthmatic breathing) Start:23-Jan-2014 Instruction Type:Patient Education How to access health informa tion online - Detail Indication:Wheezing (Renamed from Asthmatic breathing) Start:23-Jan-2014 Instruction Type:Patient Education Patient Instructions Indication:Wheezing (Renamed from Asthmatic breathing) Start:23-Jan-2014 Instruction Type:Provider Instructions for Treatment How to access health informa tion online Indication:Breast pain Start:12-Jan-2014 Instruction Type:Patient Education How to access health informa tion online - Detail Indication:Breast pain Start:12-Jan-2014 Instruction Type:Patient Education Patient Instructions Indication:Breast pain Start:12-Jan-2014 Instruction Type:Provider Instructions for Treatment Patient Instructions Indication:Acid reflux Start:31-Aug-2013 Instruction Type:Provider Instructions for Treatment [facility]; [facility] Work Phone: Instructions* Name Dates Details Patient Instructions Indication:Non-smoker Start:01-Aug-2022 Instruction Type:Provider Instructions for Treatment How to Access Health Informa tion Online using Patient Portal and [employer] Apps Indication:Non-smoker Start:01-Aug-2022 Instruction Type:Patient Education Patient Instructions Indication:Non-smoker Start:09-Jul-2022 Instruction Type:Provider Instructions for Treatment How to Access Health Informa tion Online using Patient Portal and [employer] Apps Indication:Non-smoker Start:09-Jul-2022 Instruction Type:Patient Education Patient Instructions Indication:Left ankle pain Start:01-Oct-2021 Instruction Type:Provider Instructions for Treatment How to Access Health Informa tion Online using Patient Portal and [employer] Apps Indication:Left ankle pain Start:01-Oct-2021 Instruction Type:Patient Education Patient Instructions Indication:BMI 39.0-39.9,adult Start:30-Jul-2021 Instruction Type:Provider Instructions for Treatment How to Access Health Informa tion Online using Patient Portal and [employer] Apps Indication:BMI 39.0-39.9,adult Start:30-Jul-2021 Instruction Type:Patient Education Patient Instructions Indication:Non-smoker Start:14-Jun-2021 Instruction Type:Provider Instructions for Treatment How to Access Health Informa tion Online using Patient Portal and [employer] Apps Indication:Non-smoker Start:14-Jun-2021 Instruction Type:Patient Education Patient Instructions Indication:BMI 39.0-39.9,adult Start:13-May-2021 Instruction Type:Provider Instructions for Treatment How to Access Health Informa tion Online using Patient Portal and [employer] Apps Indication:BMI 39.0-39.9,adult Start:13-May-2021 Instruction Type:Patient Education Patient Instructions Indication:Non-smoker Start:11-Jan-2021 Instruction Type:Provider Instructions for Treatment How to Access Health Informa tion Online using Patient Portal and [employer] Apps Indication:Non-smoker Start:11-Jan-2021 Instruction Type:Patient Education Patient Instructions Indication:Right flank pain Start:30-Aug-2020 Instruction Type:Provider Instructions for Treatment How to Access Health Informa tion Online using Patient Portal and [employer] Apps Indication:Right flank pain Start:30-Aug-2020 Instruction Type:Patient Education How to Access Health Informa tion Online using Patient Portal and [employer] Apps Indication:Nonsmoker Start:21-Jun-2020 Instruction Type:Patient Education Patient Instructions Indication:Nonsmoker Start:21-Jun-2020 Instruction Type:Provider Instructions for Treatment How to access health informa tion online Indication:BMI 40.0-44.9, adult Start:16-Mar-2020 Instruction Type:Patient Education How to access health informa tion online - Detail Indication:BMI 40.0-44.9, adult Start:16-Mar-2020 Instruction Type:Patient Education Patient Instructions Indication:BMI 40.0-44.9, adult Start:16-Mar-2020 Instruction Type:Provider Instructions for Treatment How to access health informa tion online Indication:Obesity, morbid, BMI 40.0-49.9 Start:24-Jan-2020 Instruction Type:Patient Education How to access health informa tion online - Detail Indication:Obesity, morbid, BMI 40.0-49.9 Start:24-Jan-2020 Instruction Type:Patient Education Patient Instructions Indication:Obesity, morbid, BMI 40.0-49.9 Start:24-Jan-2020 Instruction Type:Provider Instructions for Treatment How to access health informa tion online Indication:Nonsmoker Start:05-Dec-2019 Instruction Type:Patient Education How to access health informa tion online - Detail Indication:Nonsmoker Start:05-Dec-2019 Instruction Type:Patient Education Patient Instructions Indication:Nonsmoker Start:05-Dec-2019 Instruction Type:Provider Instructions for Treatment How to access health informa tion online Indication:Sore throat Start:23-Mar-2019 Instruction Type:Patient Education How to access health informa tion online - Detail Indication:Sore throat Start:23-Mar-2019 Instruction Type:Patient Education Patient Instructions Indication:Sore throat Start:23-Mar-2019 Instruction Type:Provider Instructions for Treatment How to access health informa tion online Indication:Nonsmoker Start:02-Mar-2019 Instruction Type:Patient Education How to access health informa tion online - Detail Indication:Nonsmoker Start:02-Mar-2019 Instruction Type:Patient Education Patient Instructions Indication:Nonsmoker Start:02-Mar-2019 Instruction Type:Provider Instructions for Treatment Patient Instructions Indication:Upper respiratory infection, viral Start:18-Oct-2018 Instruction Type:Provider Instructions for Treatment How to access health informa tion online Indication:Nonsmoker Start:18-Oct-2018 Instruction Type:Patient Education How to access health informa tion online - Detail Indication:Nonsmoker Start:18-Oct-2018 Instruction Type:Patient Education How to access health informa tion online Indication:BMI 40.0-44.9, adult Start:05-May-2018 Instruction Type:Patient Education How to access health informa tion online - Detail Indication:BMI 40.0-44.9, adult Start:05-May-2018 Instruction Type:Patient Education Patient Instructions Indication:BMI 40.0-44.9, adult Start:05-May-2018 Instruction Type:Provider Instructions for Treatment How to access health informa tion online Indication:Nonsmoker Start:23-Feb-2018 Instruction Type:Patient Education How to access health informa tion online - Detail Indication:Nonsmoker Start:23-Feb-2018 Instruction Type:Patient Education Patient Instructions Indication:Nonsmoker Start:23-Feb-2018 Instruction Type:Provider Instructions for Treatment How to access health informa tion online Indication:BMI 40.0-44.9, adult Start:15-Feb-2018 Instruction Type:Patient Education How to access health informa tion online - Detail Indication:BMI 40.0-44.9, adult Start:15-Feb-2018 Instruction Type:Patient Education Patient Instructions Indication:Decreased range of motion of left lower extremity Start:15-Feb-2018 Instruction Type:Provider Instructions for Treatment How to access health informa tion online Indication:BMI 40.0-44.9, adult Start:14-Dec-2017 Instruction Type:Patient Education How to access health informa tion online - Detail Indication:BMI 40.0-44.9, adult Start:14-Dec-2017 Instruction Type:Patient Education Patient Instructions Indication:BMI 40.0-44.9, adult Start:14-Dec-2017 Instruction Type:Provider Instructions for Treatment How to access health informa tion online Indication:BMI 40.0-44.9, adult Start:11-Aug-2017 Instruction Type:Patient Education How to access health informa tion online - Detail Indication:BMI 40.0-44.9, adult Start:11-Aug-2017 Instruction Type:Patient Education Patient Instructions Indication:Acute asthma exacerbation (Renamed from Asthma with acute exacerbation) Start:11-Aug-2017 Instruction Type:Provider Instructions for Treatment How to access health informa tion online Indication:BMI 40.0-44.9, adult Start:10-Aug-2017 Instruction Type:Patient Education How to access health informa tion online - Detail Indication:BMI 40.0-44.9, adult Start:10-Aug-2017 Instruction Type:Patient Education Patient Instructions Indication:Acute asthma exacerbation (Renamed from Asthma with acute exacerbation) Start:10-Aug-2017 Instruction Type:Provider Instructions for Treatment How to access health informa tion online Indication:Cough Start:05-Aug-2017 Instruction Type:Patient Education How to access health informa tion online - Detail Indication:Cough Start:05-Aug-2017 Instruction Type:Patient Education Patient Instructions Indication:Cough Start:05-Aug-2017 Instruction Type:Provider Instructions for Treatment DISCONTINUED - LIPID PANEL ( 59405) Indication:SCREENING FOR HYPERLIPIDEMIA (Renamed from Encounter for screening for lipoid disorders) Start:06-May-2017 Instruction Type:Patient Education How to access health informa tion online Indication:Sinus pressure Start:06-May-2017 Instruction Type:Patient Education How to access health informa tion online - Detail Indication:Sinus pressure Start:06-May-2017 Instruction Type:Patient Education Patient Instructions Indication:Sinus pressure Start:06-May-2017 Instruction Type:Provider Instructions for Treatment How to access health informa tion online Indication:Flu-like symptoms Start:30-Mar-2017 Instruction Type:Patient Education How to access health informa tion online - Detail Indication:Flu-like symptoms Start:30-Mar-2017 Instruction Type:Patient Education Patient Instructions Indication:Flu-like symptoms Start:30-Mar-2017 Instruction Type:Provider Instructions for Treatment How to access health informa tion online Indication:Low back pain potentially associated with radiculopathy Start:02-Nov-2015 Instruction Type:Patient Education How to access health informa tion online - Detail Indication:Low back pain potentially associated with radiculopathy Start:02-Nov-2015 Instruction Type:Patient Education Patient Instructions Indication:Low back pain potentially associated with radiculopathy Start:02-Nov-2015 Instruction Type:Provider Instructions for Treatment How to access health informa tion online Indication:Wheezing (Renamed from Asthmatic breathing) Start:23-Jan-2014 Instruction Type:Patient Education How to access health informa tion online - Detail Indication:Wheezing (Renamed from Asthmatic breathing) Start:23-Jan-2014 Instruction Type:Patient Education Patient Instructions Indication:Wheezing (Renamed from Asthmatic breathing) Start:23-Jan-2014 Instruction Type:Provider Instructions for Treatment How to access health informa tion online Indication:Breast pain Start:12-Jan-2014 Instruction Type:Patient Education How to access health informa tion online - Detail Indication:Breast pain Start:12-Jan-2014 Instruction Type:Patient Education Patient Instructions Indication:Breast pain Start:12-Jan-2014 Instruction Type:Provider Instructions for Treatment Patient Instructions Indication:Acid reflux Start:31-Aug-2013 Instruction Type:Provider Instructions for Treatment [facility]; [facility] Work Phone: Instructions* Name Dates Details Patient Instructions Indication:BMI 38.0-38.9,adult Start:05-Sep-2022 Instruction Type:Provider Instructions for Treatment How to Access Health Informa tion Online using Patient Portal and [employer] Apps Indication:BMI 38.0-38.9,adult Start:05-Sep-2022 Instruction Type:Patient Education Patient Instructions Indication:Non-smoker Start:01-Aug-2022 Instruction Type:Provider Instructions for Treatment How to Access Health Informa tion Online using Patient Portal and [employer] Apps Indication:Non-smoker Start:01-Aug-2022 Instruction Type:Patient Education Patient Instructions Indication:Non-smoker Start:09-Jul-2022 Instruction Type:Provider Instructions for Treatment How to Access Health Informa tion Online using Patient Portal and [employer] Apps Indication:Non-smoker Start:09-Jul-2022 Instruction Type:Patient Education Patient Instructions Indication:Left ankle pain Start:01-Oct-2021 Instruction Type:Provider Instructions for Treatment How to Access Health Informa tion Online using Patient Portal and [employer] Apps Indication:Left ankle pain Start:01-Oct-2021 Instruction Type:Patient Education Patient Instructions Indication:BMI 39.0-39.9,adult Start:30-Jul-2021 Instruction Type:Provider Instructions for Treatment How to Access Health Informa tion Online using Patient Portal and [employer] Indication:BMI 39.0-39.9,adult Start:30-Jul-2021 Instruction Type:Patient Education Patient Instructions Indication:Non-smoker Start:14-Jun-2021 Instruction Type:Provider Instructions for Treatment How to Access Health Informa tion Online using Patient Portal and [employer] Apps Indication:Non-smoker Start:14-Jun-2021 Instruction Type:Patient Education Patient Instructions Indication:BMI 39.0-39.9,adult Start:13-May-2021 Instruction Type:Provider Instructions for Treatment How to Access Health Informa tion Online using Patient Portal and [employer] Indication:BMI 39.0-39.9,adult Start:13-May-2021 Instruction Type:Patient Education Patient Instructions Indication:Non-smoker Start:11-Jan-2021 Instruction Type:Provider Instructions for Treatment How to Access Health Informa tion Online using Patient Portal and [employer] Apps Indication:Non-smoker Start:11-Jan-2021 Instruction Type:Patient Education Patient Instructions Indication:Right flank pain Start:30-Aug-2020 Instruction Type:Provider Instructions for Treatment How to Access Health Informa tion Online using Patient Portal and [employer] Apps Indication:Right flank pain Start:30-Aug-2020 Instruction Type:Patient Education How to Access Health Informa tion Online using Patient Portal and [employer] Apps Indication:Nonsmoker Start:21-Jun-2020 Instruction Type:Patient Education Patient Instructions Indication:Nonsmoker Start:21-Jun-2020 Instruction Type:Provider Instructions for Treatment How to access health informa tion online Indication:BMI 40.0-44.9, adult Start:16-Mar-2020 Instruction Type:Patient Education How to access health informa tion online - Detail Indication:BMI 40.0-44.9, adult Start:16-Mar-2020 Instruction Type:Patient Education Patient Instructions Indication:BMI 40.0-44.9, adult Start:16-Mar-2020 Instruction Type:Provider Instructions for Treatment How to access health informa tion online Indication:Obesity, morbid, BMI 40.0-49.9 Start:24-Jan-2020 Instruction Type:Patient Education How to access health informa tion online - Detail Indication:Obesity, morbid, BMI 40.0-49.9 Start:24-Jan-2020 Instruction Type:Patient Education Patient Instructions Indication:Obesity, morbid, BMI 40.0-49.9 Start:24-Jan-2020 Instruction Type:Provider Instructions for Treatment How to access health informa tion online Indication:Nonsmoker Start:05-Dec-2019 Instruction Type:Patient Education How to access health informa tion online - Detail Indication:Nonsmoker Start:05-Dec-2019 Instruction Type:Patient Education Patient Instructions Indication:Nonsmoker Start:05-Dec-2019 Instruction Type:Provider Instructions for Treatment How to access health informa tion online Indication:Sore throat Start:23-Mar-2019 Instruction Type:Patient Education How to access health informa tion online - Detail Indication:Sore throat Start:23-Mar-2019 Instruction Type:Patient Education Patient Instructions Indication:Sore throat Start:23-Mar-2019 Instruction Type:Provider Instructions for Treatment How to access health informa tion online Indication:Nonsmoker Start:02-Mar-2019 Instruction Type:Patient Education How to access health informa tion online - Detail Indication:Nonsmoker Start:02-Mar-2019 Instruction Type:Patient Education Patient Instructions Indication:Nonsmoker Start:02-Mar-2019 Instruction Type:Provider Instructions for Treatment Patient Instructions Indication:Upper respiratory infection, viral Start:18-Oct-2018 Instruction Type:Provider Instructions for Treatment How to access health informa tion online Indication:Nonsmoker Start:18-Oct-2018 Instruction Type:Patient Education How to access health informa tion online - Detail Indication:Nonsmoker Start:18-Oct-2018 Instruction Type:Patient Education How to access health informa tion online Indication:BMI 40.0-44.9, adult Start:05-May-2018 Instruction Type:Patient Education How to access health informa tion online - Detail Indication:BMI 40.0-44.9, adult Start:05-May-2018 Instruction Type:Patient Education Patient Instructions Indication:BMI 40.0-44.9, adult Start:05-May-2018 Instruction Type:Provider Instructions for Treatment How to access health informa tion online Indication:Nonsmoker Start:23-Feb-2018 Instruction Type:Patient Education How to access health informa tion online - Detail Indication:Nonsmoker Start:23-Feb-2018 Instruction Type:Patient Education Patient Instructions Indication:Nonsmoker Start:23-Feb-2018 Instruction Type:Provider Instructions for Treatment How to access health informa tion online Indication:BMI 40.0-44.9, adult Start:15-Feb-2018 Instruction Type:Patient Education How to access health informa tion online - Detail Indication:BMI 40.0-44.9, adult Start:15-Feb-2018 Instruction Type:Patient Education Patient Instructions Indication:Decreased range of motion of left lower extremity Start:15-Feb-2018 Instruction Type:Provider Instructions for Treatment How to access health informa tion online Indication:BMI 40.0-44.9, adult Start:14-Dec-2017 Instruction Type:Patient Education How to access health informa tion online - Detail Indication:BMI 40.0-44.9, adult Start:14-Dec-2017 Instruction Type:Patient Education Patient Instructions Indication:BMI 40.0-44.9, adult Start:14-Dec-2017 Instruction Type:Provider Instructions for Treatment How to access health informa tion online Indication:BMI 40.0-44.9, adult Start:11-Aug-2017 Instruction Type:Patient Education How to access health informa tion online - Detail Indication:BMI 40.0-44.9, adult Start:11-Aug-2017 Instruction Type:Patient Education Patient Instructions Indication:Acute asthma exacerbation (Renamed from Asthma with acute exacerbation) Start:11-Aug-2017 Instruction Type:Provider Instructions for Treatment How to access health informa tion online Indication:BMI 40.0-44.9, adult Start:10-Aug-2017 Instruction Type:Patient Education How to access health informa tion online - Detail Indication:BMI 40.0-44.9, adult Start:10-Aug-2017 Instruction Type:Patient Education Patient Instructions Indication:Acute asthma exacerbation (Renamed from Asthma with acute exacerbation) Start:10-Aug-2017 Instruction Type:Provider Instructions for Treatment How to access health informa tion online Indication:Cough Start:05-Aug-2017 Instruction Type:Patient Education How to access health informa tion online - Detail Indication:Cough Start:05-Aug-2017 Instruction Type:Patient Education Patient Instructions Indication:Cough Start:05-Aug-2017 Instruction Type:Provider Instructions for Treatment DISCONTINUED - LIPID PANEL ( 24580) Indication:SCREENING FOR HYPERLIPIDEMIA (Renamed from Encounter for screening for lipoid disorders) Start:06-May-2017 Instruction Type:Patient Education How to access health informa tion online Indication:Sinus pressure Start:06-May-2017 Instruction Type:Patient Education How to access health informa tion online - Detail Indication:Sinus pressure Start:06-May-2017 Instruction Type:Patient Education Patient Instructions Indication:Sinus pressure Start:06-May-2017 Instruction Type:Provider Instructions for Treatment How to access health informa tion online Indication:Flu-like symptoms Start:30-Mar-2017 Instruction Type:Patient Education How to access health informa tion online - Detail Indication:Flu-like symptoms Start:30-Mar-2017 Instruction Type:Patient Education Patient Instructions Indication:Flu-like symptoms Start:30-Mar-2017 Instruction Type:Provider Instructions for Treatment How to access health informa tion online Indication:Low back pain potentially associated with radiculopathy Start:02-Nov-2015 Instruction Type:Patient Education How to access health informa tion online - Detail Indication:Low back pain potentially associated with radiculopathy Start:02-Nov-2015 Instruction Type:Patient Education Patient Instructions Indication:Low back pain potentially associated with radiculopathy Start:02-Nov-2015 Instruction Type:Provider Instructions for Treatment How to access health informa tion online Indication:Wheezing (Renamed from Asthmatic breathing) Start:23-Jan-2014 Instruction Type:Patient Education How to access health informa tion online - Detail Indication:Wheezing (Renamed from Asthmatic breathing) Start:23-Jan-2014 Instruction Type:Patient Education Patient Instructions Indication:Wheezing (Renamed from Asthmatic breathing) Start:23-Jan-2014 Instruction Type:Provider Instructions for Treatment How to access health informa tion online Indication:Breast pain Start:12-Jan-2014 Instruction Type:Patient Education How to access health informa tion online - Detail Indication:Breast pain Start:12-Jan-2014 Instruction Type:Patient Education Patient Instructions Indication:Breast pain Start:12-Jan-2014 Instruction Type:Provider Instructions for Treatment Patient Instructions Indication:Acid reflux Start:31-Aug-2013 Instruction Type:Provider Instructions for Treatment [facility]; [facility] Work Phone: Instructions* Name Dates Details Patient Instructions Indication:BMI 38.0-38.9,adult Start:05-Sep-2022 Instruction Type:Provider Instructions for Treatment How to Access Health Informa tion Online using Patient Portal and [employer] Indication:BMI 38.0-38.9,adult Start:05-Sep-2022 Instruction Type:Patient Education Patient Instructions Indication:Non-smoker Start:01-Aug-2022 Instruction Type:Provider Instructions for Treatment How to Access Health Informa tion Online using Patient Portal and [employer] Indication:Non-smoker Start:01-Aug-2022 Instruction Type:Patient Education Patient Instructions Indication:Non-smoker Start:09-Jul-2022 Instruction Type:Provider Instructions for Treatment How to Access Health Informa tion Online using Patient Portal and [employer] Apps Indication:Non-smoker Start:09-Jul-2022 Instruction Type:Patient Education Patient Instructions Indication:Left ankle pain Start:01-Oct-2021 Instruction Type:Provider Instructions for Treatment How to Access Health Informa tion Online using Patient Portal and [employer] Apps Indication:Left ankle pain Start:01-Oct-2021 Instruction Type:Patient Education Patient Instructions Indication:BMI 39.0-39.9,adult Start:30-Jul-2021 Instruction Type:Provider Instructions for Treatment How to Access Health Informa tion Online using Patient Portal and [employer] Indication:BMI 39.0-39.9,adult Start:30-Jul-2021 Instruction Type:Patient Education Patient Instructions Indication:Non-smoker Start:14-Jun-2021 Instruction Type:Provider Instructions for Treatment How to Access Health Informa tion Online using Patient Portal and [employer] Indication:Non-smoker Start:14-Jun-2021 Instruction Type:Patient Education Patient Instructions Indication:BMI 39.0-39.9,adult Start:13-May-2021 Instruction Type:Provider Instructions for Treatment How to Access Health Informa tion Online using Patient Portal and [employer] Indication:BMI 39.0-39.9,adult Start:13-May-2021 Instruction Type:Patient Education Patient Instructions Indication:Non-smoker Start:11-Jan-2021 Instruction Type:Provider Instructions for Treatment How to Access Health Informa tion Online using Patient Portal and [employer] Indication:Non-smoker Start:11-Jan-2021 Instruction Type:Patient Education Patient Instructions Indication:Right flank pain Start:30-Aug-2020 Instruction Type:Provider Instructions for Treatment How to Access Health Informa tion Online using Patient Portal and [employer] Apps Indication:Right flank pain Start:30-Aug-2020 Instruction Type:Patient Education How to Access Health Informa tion Online using Patient Portal and [employer] Apps Indication:Nonsmoker Start:21-Jun-2020 Instruction Type:Patient Education Patient Instructions Indication:Nonsmoker Start:21-Jun-2020 Instruction Type:Provider Instructions for Treatment How to access health informa tion online Indication:BMI 40.0-44.9, adult Start:16-Mar-2020 Instruction Type:Patient Education How to access health informa tion online - Detail Indication:BMI 40.0-44.9, adult Start:16-Mar-2020 Instruction Type:Patient Education Patient Instructions Indication:BMI 40.0-44.9, adult Start:16-Mar-2020 Instruction Type:Provider Instructions for Treatment How to access health informa tion online Indication:Obesity, morbid, BMI 40.0-49.9 Start:24-Jan-2020 Instruction Type:Patient Education How to access health informa tion online - Detail Indication:Obesity, morbid, BMI 40.0-49.9 Start:24-Jan-2020 Instruction Type:Patient Education Patient Instructions Indication:Obesity, morbid, BMI 40.0-49.9 Start:24-Jan-2020 Instruction Type:Provider Instructions for Treatment How to access health informa tion online Indication:Nonsmoker Start:05-Dec-2019 Instruction Type:Patient Education How to access health informa tion online - Detail Indication:Nonsmoker Start:05-Dec-2019 Instruction Type:Patient Education Patient Instructions Indication:Nonsmoker Start:05-Dec-2019 Instruction Type:Provider Instructions for Treatment How to access health informa tion online Indication:Sore throat Start:23-Mar-2019 Instruction Type:Patient Education How to access health informa tion online - Detail Indication:Sore throat Start:23-Mar-2019 Instruction Type:Patient Education Patient Instructions Indication:Sore throat Start:23-Mar-2019 Instruction Type:Provider Instructions for Treatment How to access health informa tion online Indication:Nonsmoker Start:02-Mar-2019 Instruction Type:Patient Education How to access health informa tion online - Detail Indication:Nonsmoker Start:02-Mar-2019 Instruction Type:Patient Education Patient Instructions Indication:Nonsmoker Start:02-Mar-2019 Instruction Type:Provider Instructions for Treatment Patient Instructions Indication:Upper respiratory infection, viral Start:18-Oct-2018 Instruction Type:Provider Instructions for Treatment How to access health informa tion online Indication:Nonsmoker Start:18-Oct-2018 Instruction Type:Patient Education How to access health informa tion online - Detail Indication:Nonsmoker Start:18-Oct-2018 Instruction Type:Patient Education How to access health informa tion online Indication:BMI 40.0-44.9, adult Start:05-May-2018 Instruction Type:Patient Education How to access health informa tion online - Detail Indication:BMI 40.0-44.9, adult Start:05-May-2018 Instruction Type:Patient Education Patient Instructions Indication:BMI 40.0-44.9, adult Start:05-May-2018 Instruction Type:Provider Instructions for Treatment How to access health informa tion online Indication:Nonsmoker Start:23-Feb-2018 Instruction Type:Patient Education How to access health informa tion online - Detail Indication:Nonsmoker Start:23-Feb-2018 Instruction Type:Patient Education Patient Instructions Indication:Nonsmoker Start:23-Feb-2018 Instruction Type:Provider Instructions for Treatment How to access health informa tion online Indication:BMI 40.0-44.9, adult Start:15-Feb-2018 Instruction Type:Patient Education How to access health informa tion online - Detail Indication:BMI 40.0-44.9, adult Start:15-Feb-2018 Instruction Type:Patient Education Patient Instructions Indication:Decreased range of motion of left lower extremity Start:15-Feb-2018 Instruction Type:Provider Instructions for Treatment How to access health informa tion online Indication:BMI 40.0-44.9, adult Start:14-Dec-2017 Instruction Type:Patient Education How to access health informa tion online - Detail Indication:BMI 40.0-44.9, adult Start:14-Dec-2017 Instruction Type:Patient Education Patient Instructions Indication:BMI 40.0-44.9, adult Start:14-Dec-2017 Instruction Type:Provider Instructions for Treatment How to access health informa tion online Indication:BMI 40.0-44.9, adult Start:11-Aug-2017 Instruction Type:Patient Education How to access health informa tion online - Detail Indication:BMI 40.0-44.9, adult Start:11-Aug-2017 Instruction Type:Patient Education Patient Instructions Indication:Acute asthma exacerbation (Renamed from Asthma with acute exacerbation) Start:11-Aug-2017 Instruction Type:Provider Instructions for Treatment How to access health informa tion online Indication:BMI 40.0-44.9, adult Start:10-Aug-2017 Instruction Type:Patient Education How to access health informa tion online - Detail Indication:BMI 40.0-44.9, adult Start:10-Aug-2017 Instruction Type:Patient Education Patient Instructions Indication:Acute asthma exacerbation (Renamed from Asthma with acute exacerbation) Start:10-Aug-2017 Instruction Type:Provider Instructions for Treatment How to access health informa tion online Indication:Cough Start:05-Aug-2017 Instruction Type:Patient Education How to access health informa tion online - Detail Indication:Cough Start:05-Aug-2017 Instruction Type:Patient Education Patient Instructions Indication:Cough Start:05-Aug-2017 Instruction Type:Provider Instructions for Treatment DISCONTINUED - LIPID PANEL ( 62406) Indication:SCREENING FOR HYPERLIPIDEMIA (Renamed from Encounter for screening for lipoid disorders) Start:06-May-2017 Instruction Type:Patient Education How to access health informa tion online Indication:Sinus pressure Start:06-May-2017 Instruction Type:Patient Education How to access health informa tion online - Detail Indication:Sinus pressure Start:06-May-2017 Instruction Type:Patient Education Patient Instructions Indication:Sinus pressure Start:06-May-2017 Instruction Type:Provider Instructions for Treatment How to access health informa tion online Indication:Flu-like symptoms Start:30-Mar-2017 Instruction Type:Patient Education How to access health informa tion online - Detail Indication:Flu-like symptoms Start:30-Mar-2017 Instruction Type:Patient Education Patient Instructions Indication:Flu-like symptoms Start:30-Mar-2017 Instruction Type:Provider Instructions for Treatment How to access health informa tion online Indication:Low back pain potentially associated with radiculopathy Start:02-Nov-2015 Instruction Type:Patient Education How to access health informa tion online - Detail Indication:Low back pain potentially associated with radiculopathy Start:02-Nov-2015 Instruction Type:Patient Education Patient Instructions Indication:Low back pain potentially associated with radiculopathy Start:02-Nov-2015 Instruction Type:Provider Instructions for Treatment How to access health informa tion online Indication:Wheezing (Renamed from Asthmatic breathing) Start:23-Jan-2014 Instruction Type:Patient Education How to access health informa tion online - Detail Indication:Wheezing (Renamed from Asthmatic breathing) Start:23-Jan-2014 Instruction Type:Patient Education Patient Instructions Indication:Wheezing (Renamed from Asthmatic breathing) Start:23-Jan-2014 Instruction Type:Provider Instructions for Treatment How to access health informa tion online Indication:Breast pain Start:12-Jan-2014 Instruction Type:Patient Education How to access health informa tion online - Detail Indication:Breast pain Start:12-Jan-2014 Instruction Type:Patient Education Patient Instructions Indication:Breast pain Start:12-Jan-2014 Instruction Type:Provider Instructions for Treatment Patient Instructions Indication:Acid reflux Start:31-Aug-2013 Instruction Type:Provider Instructions for Treatment [facility]; [facility] Work Phone: Instructions* Name Dates Details Patient Instructions Indication:BMI 38.0-38.9,adult Start:05-Sep-2022 Instruction Type:Provider Instructions for Treatment How to Access Health Informa tion Online using Patient Portal and [employer] Apps Indication:BMI 38.0-38.9,adult Start:05-Sep-2022 Instruction Type:Patient Education Patient Instructions Indication:Non-smoker Start:01-Aug-2022 Instruction Type:Provider Instructions for Treatment How to Access Health Informa tion Online using Patient Portal and [employer] Apps Indication:Non-smoker Start:01-Aug-2022 Instruction Type:Patient Education Patient Instructions Indication:Non-smoker Start:09-Jul-2022 Instruction Type:Provider Instructions for Treatment How to Access Health Informa tion Online using Patient Portal and [employer] Apps Indication:Non-smoker Start:09-Jul-2022 Instruction Type:Patient Education Patient Instructions Indication:Left ankle pain Start:01-Oct-2021 Instruction Type:Provider Instructions for Treatment How to Access Health Informa tion Online using Patient Portal and [employer] Apps Indication:Left ankle pain Start:01-Oct-2021 Instruction Type:Patient Education Patient Instructions Indication:BMI 39.0-39.9,adult Start:30-Jul-2021 Instruction Type:Provider Instructions for Treatment How to Access Health Informa tion Online using Patient Portal and [employer] Indication:BMI 39.0-39.9,adult Start:30-Jul-2021 Instruction Type:Patient Education Patient Instructions Indication:Non-smoker Start:14-Jun-2021 Instruction Type:Provider Instructions for Treatment How to Access Health Informa tion Online using Patient Portal and [employer] Apps Indication:Non-smoker Start:14-Jun-2021 Instruction Type:Patient Education Patient Instructions Indication:BMI 39.0-39.9,adult Start:13-May-2021 Instruction Type:Provider Instructions for Treatment How to Access Health Informa tion Online using Patient Portal and [employer] Indication:BMI 39.0-39.9,adult Start:13-May-2021 Instruction Type:Patient Education Patient Instructions Indication:Non-smoker Start:11-Jan-2021 Instruction Type:Provider Instructions for Treatment How to Access Health Informa tion Online using Patient Portal and [employer] Apps Indication:Non-smoker Start:11-Jan-2021 Instruction Type:Patient Education Patient Instructions Indication:Right flank pain Start:30-Aug-2020 Instruction Type:Provider Instructions for Treatment How to Access Health Informa tion Online using Patient Portal and [employer] Apps Indication:Right flank pain Start:30-Aug-2020 Instruction Type:Patient Education How to Access Health Informa tion Online using Patient Portal and [employer] Apps Indication:Nonsmoker Start:21-Jun-2020 Instruction Type:Patient Education Patient Instructions Indication:Nonsmoker Start:21-Jun-2020 Instruction Type:Provider Instructions for Treatment How to access health informa tion online Indication:BMI 40.0-44.9, adult Start:16-Mar-2020 Instruction Type:Patient Education How to access health informa tion online - Detail Indication:BMI 40.0-44.9, adult Start:16-Mar-2020 Instruction Type:Patient Education Patient Instructions Indication:BMI 40.0-44.9, adult Start:16-Mar-2020 Instruction Type:Provider Instructions for Treatment How to access health informa tion online Indication:Obesity, morbid, BMI 40.0-49.9 Start:24-Jan-2020 Instruction Type:Patient Education How to access health informa tion online - Detail Indication:Obesity, morbid, BMI 40.0-49.9 Start:24-Jan-2020 Instruction Type:Patient Education Patient Instructions Indication:Obesity, morbid, BMI 40.0-49.9 Start:24-Jan-2020 Instruction Type:Provider Instructions for Treatment How to access health informa tion online Indication:Nonsmoker Start:05-Dec-2019 Instruction Type:Patient Education How to access health informa tion online - Detail Indication:Nonsmoker Start:05-Dec-2019 Instruction Type:Patient Education Patient Instructions Indication:Nonsmoker Start:05-Dec-2019 Instruction Type:Provider Instructions for Treatment How to access health informa tion online Indication:Sore throat Start:23-Mar-2019 Instruction Type:Patient Education How to access health informa tion online - Detail Indication:Sore throat Start:23-Mar-2019 Instruction Type:Patient Education Patient Instructions Indication:Sore throat Start:23-Mar-2019 Instruction Type:Provider Instructions for Treatment How to access health informa tion online Indication:Nonsmoker Start:02-Mar-2019 Instruction Type:Patient Education How to access health informa tion online - Detail Indication:Nonsmoker Start:02-Mar-2019 Instruction Type:Patient Education Patient Instructions Indication:Nonsmoker Start:02-Mar-2019 Instruction Type:Provider Instructions for Treatment Patient Instructions Indication:Upper respiratory infection, viral Start:18-Oct-2018 Instruction Type:Provider Instructions for Treatment How to access health informa tion online Indication:Nonsmoker Start:18-Oct-2018 Instruction Type:Patient Education How to access health informa tion online - Detail Indication:Nonsmoker Start:18-Oct-2018 Instruction Type:Patient Education How to access health informa tion online Indication:BMI 40.0-44.9, adult Start:05-May-2018 Instruction Type:Patient Education How to access health informa tion online - Detail Indication:BMI 40.0-44.9, adult Start:05-May-2018 Instruction Type:Patient Education Patient Instructions Indication:BMI 40.0-44.9, adult Start:05-May-2018 Instruction Type:Provider Instructions for Treatment How to access health informa tion online Indication:Nonsmoker Start:23-Feb-2018 Instruction Type:Patient Education How to access health informa tion online - Detail Indication:Nonsmoker Start:23-Feb-2018 Instruction Type:Patient Education Patient Instructions Indication:Nonsmoker Start:23-Feb-2018 Instruction Type:Provider Instructions for Treatment How to access health informa tion online Indication:BMI 40.0-44.9, adult Start:15-Feb-2018 Instruction Type:Patient Education How to access health informa tion online - Detail Indication:BMI 40.0-44.9, adult Start:15-Feb-2018 Instruction Type:Patient Education Patient Instructions Indication:Decreased range of motion of left lower extremity Start:15-Feb-2018 Instruction Type:Provider Instructions for Treatment How to access health informa tion online Indication:BMI 40.0-44.9, adult Start:14-Dec-2017 Instruction Type:Patient Education How to access health informa tion online - Detail Indication:BMI 40.0-44.9, adult Start:14-Dec-2017 Instruction Type:Patient Education Patient Instructions Indication:BMI 40.0-44.9, adult Start:14-Dec-2017 Instruction Type:Provider Instructions for Treatment How to access health informa tion online Indication:BMI 40.0-44.9, adult Start:11-Aug-2017 Instruction Type:Patient Education How to access health informa tion online - Detail Indication:BMI 40.0-44.9, adult Start:11-Aug-2017 Instruction Type:Patient Education Patient Instructions Indication:Acute asthma exacerbation (Renamed from Asthma with acute exacerbation) Start:11-Aug-2017 Instruction Type:Provider Instructions for Treatment How to access health informa tion online Indication:BMI 40.0-44.9, adult Start:10-Aug-2017 Instruction Type:Patient Education How to access health informa tion online - Detail Indication:BMI 40.0-44.9, adult Start:10-Aug-2017 Instruction Type:Patient Education Patient Instructions Indication:Acute asthma exacerbation (Renamed from Asthma with acute exacerbation) Start:10-Aug-2017 Instruction Type:Provider Instructions for Treatment How to access health informa tion online Indication:Cough Start:05-Aug-2017 Instruction Type:Patient Education How to access health informa tion online - Detail Indication:Cough Start:05-Aug-2017 Instruction Type:Patient Education Patient Instructions Indication:Cough Start:05-Aug-2017 Instruction Type:Provider Instructions for Treatment DISCONTINUED - LIPID PANEL ( 35116) Indication:SCREENING FOR HYPERLIPIDEMIA (Renamed from Encounter for screening for lipoid disorders) Start:06-May-2017 Instruction Type:Patient Education How to access health informa tion online Indication:Sinus pressure Start:06-May-2017 Instruction Type:Patient Education How to access health informa tion online - Detail Indication:Sinus pressure Start:06-May-2017 Instruction Type:Patient Education Patient Instructions Indication:Sinus pressure Start:06-May-2017 Instruction Type:Provider Instructions for Treatment How to access health informa tion online Indication:Flu-like symptoms Start:30-Mar-2017 Instruction Type:Patient Education How to access health informa tion online - Detail Indication:Flu-like symptoms Start:30-Mar-2017 Instruction Type:Patient Education Patient Instructions Indication:Flu-like symptoms Start:30-Mar-2017 Instruction Type:Provider Instructions for Treatment How to access health informa tion online Indication:Low back pain potentially associated with radiculopathy Start:02-Nov-2015 Instruction Type:Patient Education How to access health informa tion online - Detail Indication:Low back pain potentially associated with radiculopathy Start:02-Nov-2015 Instruction Type:Patient Education Patient Instructions Indication:Low back pain potentially associated with radiculopathy Start:02-Nov-2015 Instruction Type:Provider Instructions for Treatment How to access health informa tion online Indication:Wheezing (Renamed from Asthmatic breathing) Start:23-Jan-2014 Instruction Type:Patient Education How to access health informa tion online - Detail Indication:Wheezing (Renamed from Asthmatic breathing) Start:23-Jan-2014 Instruction Type:Patient Education Patient Instructions Indication:Wheezing (Renamed from Asthmatic breathing) Start:23-Jan-2014 Instruction Type:Provider Instructions for Treatment How to access health informa tion online Indication:Breast pain Start:12-Jan-2014 Instruction Type:Patient Education How to access health informa tion online - Detail Indication:Breast pain Start:12-Jan-2014 Instruction Type:Patient Education Patient Instructions Indication:Breast pain Start:12-Jan-2014 Instruction Type:Provider Instructions for Treatment Patient Instructions Indication:Acid reflux Start:31-Aug-2013 Instruction Type:Provider Instructions for Treatment [facility]; [facility] Work Phone: Instructions* Name Dates Details Patient Instructions Indication:BMI 38.0-38.9,adult Start:05-Sep-2022 Instruction Type:Provider Instructions for Treatment How to Access Health Informa tion Online using Patient Portal and [employer] Apps Indication:BMI 38.0-38.9,adult Start:05-Sep-2022 Instruction Type:Patient Education Patient Instructions Indication:Non-smoker Start:01-Aug-2022 Instruction Type:Provider Instructions for Treatment How to Access Health Informa tion Online using Patient Portal and [employer] Indication:Non-smoker Start:01-Aug-2022 Instruction Type:Patient Education Patient Instructions Indication:Non-smoker Start:09-Jul-2022 Instruction Type:Provider Instructions for Treatment How to Access Health Informa tion Online using Patient Portal and [employer] Indication:Non-smoker Start:09-Jul-2022 Instruction Type:Patient Education Patient Instructions Indication:Left ankle pain Start:01-Oct-2021 Instruction Type:Provider Instructions for Treatment How to Access Health Informa tion Online using Patient Portal and [employer] Apps Indication:Left ankle pain Start:01-Oct-2021 Instruction Type:Patient Education Patient Instructions Indication:BMI 39.0-39.9,adult Start:30-Jul-2021 Instruction Type:Provider Instructions for Treatment How to Access Health Informa tion Online using Patient Portal and [employer] Indication:BMI 39.0-39.9,adult Start:30-Jul-2021 Instruction Type:Patient Education Patient Instructions Indication:Non-smoker Start:14-Jun-2021 Instruction Type:Provider Instructions for Treatment How to Access Health Informa tion Online using Patient Portal and [employer] Indication:Non-smoker Start:14-Jun-2021 Instruction Type:Patient Education Patient Instructions Indication:BMI 39.0-39.9,adult Start:13-May-2021 Instruction Type:Provider Instructions for Treatment How to Access Health Informa tion Online using Patient Portal and [employer] Indication:BMI 39.0-39.9,adult Start:13-May-2021 Instruction Type:Patient Education Patient Instructions Indication:Non-smoker Start:11-Jan-2021 Instruction Type:Provider Instructions for Treatment How to Access Health Informa tion Online using Patient Portal and [employer] Indication:Non-smoker Start:11-Jan-2021 Instruction Type:Patient Education Patient Instructions Indication:Right flank pain Start:30-Aug-2020 Instruction Type:Provider Instructions for Treatment How to Access Health Informa tion Online using Patient Portal and [employer] Indication:Right flank pain Start:30-Aug-2020 Instruction Type:Patient Education How to Access Health Informa tion Online using Patient Portal and [employer] Indication:Nonsmoker Start:21-Jun-2020 Instruction Type:Patient Education Patient Instructions Indication:Nonsmoker Start:21-Jun-2020 Instruction Type:Provider Instructions for Treatment How to access health informa tion online Indication:BMI 40.0-44.9, adult Start:16-Mar-2020 Instruction Type:Patient Education How to access health informa tion online - Detail Indication:BMI 40.0-44.9, adult Start:16-Mar-2020 Instruction Type:Patient Education Patient Instructions Indication:BMI 40.0-44.9, adult Start:16-Mar-2020 Instruction Type:Provider Instructions for Treatment How to access health informa tion online Indication:Obesity, morbid, BMI 40.0-49.9 Start:24-Jan-2020 Instruction Type:Patient Education How to access health informa tion online - Detail Indication:Obesity, morbid, BMI 40.0-49.9 Start:24-Jan-2020 Instruction Type:Patient Education Patient Instructions Indication:Obesity, morbid, BMI 40.0-49.9 Start:24-Jan-2020 Instruction Type:Provider Instructions for Treatment How to access health informa tion online Indication:Nonsmoker Start:05-Dec-2019 Instruction Type:Patient Education How to access health informa tion online - Detail Indication:Nonsmoker Start:05-Dec-2019 Instruction Type:Patient Education Patient Instructions Indication:Nonsmoker Start:05-Dec-2019 Instruction Type:Provider Instructions for Treatment How to access health informa tion online Indication:Sore throat Start:23-Mar-2019 Instruction Type:Patient Education How to access health informa tion online - Detail Indication:Sore throat Start:23-Mar-2019 Instruction Type:Patient Education Patient Instructions Indication:Sore throat Start:23-Mar-2019 Instruction Type:Provider Instructions for Treatment How to access health informa tion online Indication:Nonsmoker Start:02-Mar-2019 Instruction Type:Patient Education How to access health informa tion online - Detail Indication:Nonsmoker Start:02-Mar-2019 Instruction Type:Patient Education Patient Instructions Indication:Nonsmoker Start:02-Mar-2019 Instruction Type:Provider Instructions for Treatment Patient Instructions Indication:Upper respiratory infection, viral Start:18-Oct-2018 Instruction Type:Provider Instructions for Treatment How to access health informa tion online Indication:Nonsmoker Start:18-Oct-2018 Instruction Type:Patient Education How to access health informa tion online - Detail Indication:Nonsmoker Start:18-Oct-2018 Instruction Type:Patient Education How to access health informa tion online Indication:BMI 40.0-44.9, adult Start:05-May-2018 Instruction Type:Patient Education How to access health informa tion online - Detail Indication:BMI 40.0-44.9, adult Start:05-May-2018 Instruction Type:Patient Education Patient Instructions Indication:BMI 40.0-44.9, adult Start:05-May-2018 Instruction Type:Provider Instructions for Treatment How to access health informa tion online Indication:Nonsmoker Start:23-Feb-2018 Instruction Type:Patient Education How to access health informa tion online - Detail Indication:Nonsmoker Start:23-Feb-2018 Instruction Type:Patient Education Patient Instructions Indication:Nonsmoker Start:23-Feb-2018 Instruction Type:Provider Instructions for Treatment How to access health informa tion online Indication:BMI 40.0-44.9, adult Start:15-Feb-2018 Instruction Type:Patient Education How to access health informa tion online - Detail Indication:BMI 40.0-44.9, adult Start:15-Feb-2018 Instruction Type:Patient Education Patient Instructions Indication:Decreased range of motion of left lower extremity Start:15-Feb-2018 Instruction Type:Provider Instructions for Treatment How to access health informa tion online Indication:BMI 40.0-44.9, adult Start:14-Dec-2017 Instruction Type:Patient Education How to access health informa tion online - Detail Indication:BMI 40.0-44.9, adult Start:14-Dec-2017 Instruction Type:Patient Education Patient Instructions Indication:BMI 40.0-44.9, adult Start:14-Dec-2017 Instruction Type:Provider Instructions for Treatment How to access health informa tion online Indication:BMI 40.0-44.9, adult Start:11-Aug-2017 Instruction Type:Patient Education How to access health informa tion online - Detail Indication:BMI 40.0-44.9, adult Start:11-Aug-2017 Instruction Type:Patient Education Patient Instructions Indication:Acute asthma exacerbation (Renamed from Asthma with acute exacerbation) Start:11-Aug-2017 Instruction Type:Provider Instructions for Treatment How to access health informa tion online Indication:BMI 40.0-44.9, adult Start:10-Aug-2017 Instruction Type:Patient Education How to access health informa tion online - Detail Indication:BMI 40.0-44.9, adult Start:10-Aug-2017 Instruction Type:Patient Education Patient Instructions Indication:Acute asthma exacerbation (Renamed from Asthma with acute exacerbation) Start:10-Aug-2017 Instruction Type:Provider Instructions for Treatment How to access health informa tion online Indication:Cough Start:05-Aug-2017 Instruction Type:Patient Education How to access health informa tion online - Detail Indication:Cough Start:05-Aug-2017 Instruction Type:Patient Education Patient Instructions Indication:Cough Start:05-Aug-2017 Instruction Type:Provider Instructions for Treatment DISCONTINUED - LIPID PANEL ( 25304) Indication:SCREENING FOR HYPERLIPIDEMIA (Renamed from Encounter for screening for lipoid disorders) Start:06-May-2017 Instruction Type:Patient Education How to access health informa tion online Indication:Sinus pressure Start:06-May-2017 Instruction Type:Patient Education How to access health informa tion online - Detail Indication:Sinus pressure Start:06-May-2017 Instruction Type:Patient Education Patient Instructions Indication:Sinus pressure Start:06-May-2017 Instruction Type:Provider Instructions for Treatment How to access health informa tion online Indication:Flu-like symptoms Start:30-Mar-2017 Instruction Type:Patient Education How to access health informa tion online - Detail Indication:Flu-like symptoms Start:30-Mar-2017 Instruction Type:Patient Education Patient Instructions Indication:Flu-like symptoms Start:30-Mar-2017 Instruction Type:Provider Instructions for Treatment How to access health informa tion online Indication:Low back pain potentially associated with radiculopathy Start:02-Nov-2015 Instruction Type:Patient Education How to access health informa tion online - Detail Indication:Low back pain potentially associated with radiculopathy Start:02-Nov-2015 Instruction Type:Patient Education Patient Instructions Indication:Low back pain potentially associated with radiculopathy Start:02-Nov-2015 Instruction Type:Provider Instructions for Treatment How to access health informa tion online Indication:Wheezing (Renamed from Asthmatic breathing) Start:23-Jan-2014 Instruction Type:Patient Education How to access health informa tion online - Detail Indication:Wheezing (Renamed from Asthmatic breathing) Start:23-Jan-2014 Instruction Type:Patient Education Patient Instructions Indication:Wheezing (Renamed from Asthmatic breathing) Start:23-Jan-2014 Instruction Type:Provider Instructions for Treatment How to access health informa tion online Indication:Breast pain Start:12-Jan-2014 Instruction Type:Patient Education How to access health informa tion online - Detail Indication:Breast pain Start:12-Jan-2014 Instruction Type:Patient Education Patient Instructions Indication:Breast pain Start:12-Jan-2014 Instruction Type:Provider Instructions for Treatment Patient Instructions Indication:Acid reflux Start:31-Aug-2013 Instruction Type:Provider Instructions for Treatment [facility]; [facility] Work Phone: Summary Purpose Family History No Family History Records FoundUnknown Family Member Name Dates Details Migraine Headache Comments:Mother. Status:Active RA Comments:Sister. Status:Active Unknown Family Member Name Dates Details Migraine Headache Comments:Mother. Status:Active RA Comments:Sister. Status:Active Unknown Family Member Name Dates Details Migraine Headache Comments:Mother. Status:Active RA Comments:Sister. Status:Active Unknown Family Member Name Dates Details Migraine Headache Comments:Mother. Status:Active RA Comments:Sister. Status:Active Unknown Family Member Name Dates Details Migraine Headache Comments:Mother. Status:Active RA Comments:Sister. Status:Active Unknown Family Member Name Dates Details Migraine Headache Comments:Mother. Status:Active RA Comments:Sister. Status:Active Unknown Family Member Name Dates Details Migraine Headache Comments:Mother. Status:Active RA Comments:Sister. Status:Active Unknown Family Member Name Dates Details Migraine Headache Comments:Mother. Status:Active RA Comments:Sister. Status:Active Unknown Family Member Name Dates Details Migraine Headache Comments:Mother. Status:Active RA Comments:Sister. Status:Active Unknown Family Member Name Dates Details Migraine Headache Comments:Mother. Status:Active RA Comments:Sister. Status:Active Unknown Family Member Name Dates Details Migraine Headache Comments:Mother. Status:Active RA Comments:Sister. Status:Active Unknown Family Member Name Dates Details Migraine Headache Comments:Mother. Status:Active RA Comments:Sister. Status:Active Unknown Family Member Name Dates Details Migraine Headache Comments:Mother. Status:Active RA Comments:Sister. Status:Active Unknown Family Member Name Dates Details Migraine Headache Comments:Mother. Status:Active RA Comments:Sister. Status:Active Unknown Family Member Name Dates Details Migraine Headache Comments:Mother. Status:Active RA Comments:Sister. Status:Active Unknown Family Member Name Dates Details Migraine Headache Comments:Mother. Status:Active RA Comments:Sister. Status:Active Unknown Family Member Name Dates Details Migraine Headache Comments:Mother. Status:Active RA Comments:Sister. Status:Active Unknown Family Member Name Dates Details Migraine Headache Comments:Mother. Status:Active RA Comments:Sister. Status:Active Unknown Family Member Name Dates Details Migraine Headache Comments:Mother. Status:Active RA Comments:Sister. Status:Active Unknown Family Member Name Dates Details Migraine Headache Comments:Mother. Status:Active RA Comments:Sister. Status:Active Unknown Family Member Name Dates Details Migraine Headache Comments:Mother. Status:Active RA Comments:Sister. Status:Active Unknown Family Member Name Dates Details Migraine Headache Comments:Mother. Status:Active RA Comments:Sister. Status:Active Unknown Family Member Name Dates Details Migraine Headache Comments:Mother. Status:Active RA Comments:Sister. Status:Active Unknown Family Member Name Dates Details Migraine Headache Comments:Mother. Status:Active RA Comments:Sister. Status:Active Unknown Family Member Name Dates Details Migraine Headache Comments:Mother. Status:Active RA Comments:Sister. Status:Active Unknown Family Member Name Dates Details Migraine Headache Comments:Mother. Status:Active RA Comments:Sister. Status:Active Unknown Family Member Name Dates Details Migraine Headache Comments:Mother. Status:Active RA Comments:Sister. Status:Active Unknown Family Member Name Dates Details Migraine Headache Comments:Mother. Status:Active RA Comments:Sister. Status:Active Unknown Family Member Name Dates Details Migraine Headache Comments:Mother. Status:Active RA Comments:Sister. Status:Active Unknown Family Member Name Dates Details Migraine Headache Comments:Mother. Status:Active RA Comments:Sister. Status:Active Unknown Family Member Name Dates Details Migraine Headache Comments:Mother. Status:Active RA Comments:Sister. Status:Active Unknown Family Member Name Dates Details Migraine Headache Comments:Mother. Status:Active RA Comments:Sister. Status:Active Unknown Family Member Name Dates Details Migraine Headache Comments:Mother. Status:Active RA Comments:Sister. Status:Active Unknown Family Member Name Dates Details Migraine Headache Comments:Mother. Status:Active RA Comments:Sister. Status:Active Unknown Family Member Name Dates Details Migraine Headache Comments:Mother. Status:Active RA Comments:Sister. Status:Active Unknown Family Member Name Dates Details Migraine Headache Comments:Mother. Status:Active RA Comments:Sister. Status:Active Unknown Family Member Name Dates Details Migraine Headache Comments:Mother. Status:Active RA Comments:Sister. Status:Active Unknown Family Member Name Dates Details Migraine Headache Comments:Mother. Status:Active RA Comments:Sister. Status:Active Unknown Family Member Name Dates Details Migraine Headache Comments:Mother. Status:Active RA Comments:Sister. Status:Active Unknown Family Member Name Dates Details Migraine Headache Comments:Mother. Status:Active RA Comments:Sister. Status:Active Unknown Family Member Name Dates Details Migraine Headache Comments:Mother. Status:Active RA Comments:Sister. Status:Active Unknown Family Member Name Dates Details Migraine Headache Comments:Mother. Status:Active RA Comments:Sister. Status:Active Unknown Family Member Name Dates Details Migraine Headache Comments:Mother. Status:Active RA Comments:Sister. Status:Active Unknown Family Member Name Dates Details Migraine Headache Comments:Mother. Status:Active RA Comments:Sister. Status:Active Unknown Family Member Name Dates Details Migraine Headache Comments:Mother. Status:Active RA Comments:Sister. Status:Active Unknown Family Member Name Dates Details Migraine Headache Comments:Mother. Status:Active RA Comments:Sister. Status:Active Unknown Family Member Name Dates Details Migraine Headache Comments:Mother. Status:Active RA Comments:Sister. Status:Active Unknown Family Member Name Dates Details Migraine Headache Comments:Mother. Status:Active RA Comments:Sister. Status:Active Advance Directives No Advanced Directives Records FoundNo Advanced Directives Records FoundNo Advanced Directives Records FoundNo Advanced Directives Records FoundNo Advanced Directives Records FoundNo Advanced Directives Records FoundNo Advanced Directives Records FoundNo Advanced Directives Records FoundNo Advanced Directives Records Found Instructions Name Dates Details BMI 40.0-44.9, adult : How t o access health information online Indication:BMI 40.0-44.9, adult BMI 40.0-44.9, adult : How t o access health information online - Detail Indication:BMI 40.0-44.9, adult Decreased range of motion of left lower extremity : Patient Instructions Indication:Decreased range of motion of left lower extremity BMI 40.0-44.9, adult : Patie nt Instructions Indication:BMI 40.0-44.9, adult Acute asthma exacerbation (R enamed from Asthma with acute exacerbation) : Patient Instructions Indication:Acute asthma exacerbation (Renamed from Asthma with acute exacerbation) Cough : How to access health information online Indication:Cough Cough : How to access health information online - Detail Indication:Cough Cough : Patient Instructions Indication:Cough SCREENING FOR HYPERLIPIDEMIA (Renamed from Encounter for screening for lipoid disorders) : DISCONTINUED - LIPID PANEL (19033) Indication:SCREENING FOR HYPERLIPIDEMIA (Renamed from Encounter for screening for lipoid disorders) Sinus pressure : How to acce ss health information online Indication:Sinus pressure Sinus pressure : How to acce ss health information online - Detail Indication:Sinus pressure Sinus pressure : Patient Ins tructions Indication:Sinus pressure Flu-like symptoms : How to a ccess health information online Indication:Flu-like symptoms Flu-like symptoms : How to a ccess health information online - Detail Indication:Flu-like symptoms Flu-like symptoms : Patient Instructions Indication:Flu-like symptoms Low back pain potentially as sociated with radiculopathy : How to access health information online Indication:Low back pain potentially associated with radiculopathy Low back pain potentially as sociated with radiculopathy : How to access health information online - Detail Indication:Low back pain potentially associated with radiculopathy Low back pain potentially as sociated with radiculopathy : Patient Instructions Indication:Low back pain potentially associated with radiculopathy Wheezing (Renamed from Asthm atic breathing) : How to access health information online Indication:Wheezing (Renamed from Asthmatic breathing) Wheezing (Renamed from Asthm atic breathing) : How to access health information online - Detail Indication:Wheezing (Renamed from Asthmatic breathing) Wheezing (Renamed from Asthm atic breathing) : Patient Instructions Indication:Wheezing (Renamed from Asthmatic breathing) Breast pain : How to access health information online Indication:Breast pain Breast pain : How to access health information online - Detail Indication:Breast pain Breast pain : Patient Instru ctions Indication:Breast pain Acid reflux : Patient Instru ctions Indication:Acid reflux Name Dates Details BMI 40.0-44.9, adult : How t o access health information online Indication:BMI 40.0-44.9, adult BMI 40.0-44.9, adult : How t o access health information online - Detail Indication:BMI 40.0-44.9, adult BMI 40.0-44.9, adult : Patie nt Instructions Indication:BMI 40.0-44.9, adult Nonsmoker : How to access he alth information online Indication:Nonsmoker Nonsmoker : How to access he alth information online - Detail Indication:Nonsmoker Nonsmoker : Patient Instruct ions Indication:Nonsmoker Decreased range of motion of left lower extremity : Patient Instructions Indication:Decreased range of motion of left lower extremity Acute asthma exacerbation (R enamed from Asthma with acute exacerbation) : Patient Instructions Indication:Acute asthma exacerbation (Renamed from Asthma with acute exacerbation) Cough : How to access health information online Indication:Cough Cough : How to access health information online - Detail Indication:Cough Cough : Patient Instructions Indication:Cough SCREENING FOR HYPERLIPIDEMIA (Renamed from Encounter for screening for lipoid disorders) : DISCONTINUED - LIPID PANEL (52940) Indication:SCREENING FOR HYPERLIPIDEMIA (Renamed from Encounter for screening for lipoid disorders) Sinus pressure : How to acce ss health information online Indication:Sinus pressure Sinus pressure : How to acce ss health information online - Detail Indication:Sinus pressure Sinus pressure : Patient Ins tructions Indication:Sinus pressure Flu-like symptoms : How to a ccess health information online Indication:Flu-like symptoms Flu-like symptoms : How to a ccess health information online - Detail Indication:Flu-like symptoms Flu-like symptoms : Patient Instructions Indication:Flu-like symptoms Low back pain potentially as sociated with radiculopathy : How to access health information online Indication:Low back pain potentially associated with radiculopathy Low back pain potentially as sociated with radiculopathy : How to access health information online - Detail Indication:Low back pain potentially associated with radiculopathy Low back pain potentially as sociated with radiculopathy : Patient Instructions Indication:Low back pain potentially associated with radiculopathy Wheezing (Renamed from Asthm atic breathing) : How to access health information online Indication:Wheezing (Renamed from Asthmatic breathing) Wheezing (Renamed from Asthm atic breathing) : How to access health information online - Detail Indication:Wheezing (Renamed from Asthmatic breathing) Wheezing (Renamed from Asthm atic breathing) : Patient Instructions Indication:Wheezing (Renamed from Asthmatic breathing) Breast pain : How to access health information online Indication:Breast pain Breast pain : How to access health information online - Detail Indication:Breast pain Breast pain : Patient Instru ctions Indication:Breast pain Acid reflux : Patient Instru ctions Indication:Acid reflux Name Dates Details How to access health informa tion online Indication:BMI 40.0-44.9, adult Start:05-May-2018 Instruction Type:Patient Education How to access health informa tion online - Detail Indication:BMI 40.0-44.9, adult Start:05-May-2018 Instruction Type:Patient Education Patient Instructions Indication:BMI 40.0-44.9, adult Start:05-May-2018 Instruction Type:Provider Instructions for Treatment How to access health informa tion online Indication:Nonsmoker Start:23-Feb-2018 Instruction Type:Patient Education How to access health informa tion online - Detail Indication:Nonsmoker Start:23-Feb-2018 Instruction Type:Patient Education Patient Instructions Indication:Nonsmoker Start:23-Feb-2018 Instruction Type:Provider Instructions for Treatment How to access health informa tion online Indication:BMI 40.0-44.9, adult Start:15-Feb-2018 Instruction Type:Patient Education How to access health informa tion online - Detail Indication:BMI 40.0-44.9, adult Start:15-Feb-2018 Instruction Type:Patient Education Patient Instructions Indication:Decreased range of motion of left lower extremity Start:15-Feb-2018 Instruction Type:Provider Instructions for Treatment How to access health informa tion online Indication:BMI 40.0-44.9, adult Start:14-Dec-2017 Instruction Type:Patient Education How to access health informa tion online - Detail Indication:BMI 40.0-44.9, adult Start:14-Dec-2017 Instruction Type:Patient Education Patient Instructions Indication:BMI 40.0-44.9, adult Start:14-Dec-2017 Instruction Type:Provider Instructions for Treatment How to access health informa tion online Indication:BMI 40.0-44.9, adult Start:11-Aug-2017 Instruction Type:Patient Education How to access health informa tion online - Detail Indication:BMI 40.0-44.9, adult Start:11-Aug-2017 Instruction Type:Patient Education Patient Instructions Indication:Acute asthma exacerbation (Renamed from Asthma with acute exacerbation) Start:11-Aug-2017 Instruction Type:Provider Instructions for Treatment How to access health informa tion online Indication:BMI 40.0-44.9, adult Start:10-Aug-2017 Instruction Type:Patient Education How to access health informa tion online - Detail Indication:BMI 40.0-44.9, adult Start:10-Aug-2017 Instruction Type:Patient Education Patient Instructions Indication:Acute asthma exacerbation (Renamed from Asthma with acute exacerbation) Start:10-Aug-2017 Instruction Type:Provider Instructions for Treatment How to access health informa tion online Indication:Cough Start:05-Aug-2017 Instruction Type:Patient Education How to access health informa tion online - Detail Indication:Cough Start:05-Aug-2017 Instruction Type:Patient Education Patient Instructions Indication:Cough Start:05-Aug-2017 Instruction Type:Provider Instructions for Treatment DISCONTINUED - LIPID PANEL ( 36532) Indication:SCREENING FOR HYPERLIPIDEMIA (Renamed from Encounter for screening for lipoid disorders) Start:06-May-2017 Instruction Type:Patient Education How to access health informa tion online Indication:Sinus pressure Start:06-May-2017 Instruction Type:Patient Education How to access health informa tion online - Detail Indication:Sinus pressure Start:06-May-2017 Instruction Type:Patient Education Patient Instructions Indication:Sinus pressure Start:06-May-2017 Instruction Type:Provider Instructions for Treatment How to access health informa tion online Indication:Flu-like symptoms Start:30-Mar-2017 Instruction Type:Patient Education How to access health informa tion online - Detail Indication:Flu-like symptoms Start:30-Mar-2017 Instruction Type:Patient Education Patient Instructions Indication:Flu-like symptoms Start:30-Mar-2017 Instruction Type:Provider Instructions for Treatment How to access health informa tion online Indication:Low back pain potentially associated with radiculopathy Start:02-Nov-2015 Instruction Type:Patient Education How to access health informa tion online - Detail Indication:Low back pain potentially associated with radiculopathy Start:02-Nov-2015 Instruction Type:Patient Education Patient Instructions Indication:Low back pain potentially associated with radiculopathy Start:02-Nov-2015 Instruction Type:Provider Instructions for Treatment How to access health informa tion online Indication:Wheezing (Renamed from Asthmatic breathing) Start:23-Jan-2014 Instruction Type:Patient Education How to access health informa tion online - Detail Indication:Wheezing (Renamed from Asthmatic breathing) Start:23-Jan-2014 Instruction Type:Patient Education Patient Instructions Indication:Wheezing (Renamed from Asthmatic breathing) Start:23-Jan-2014 Instruction Type:Provider Instructions for Treatment How to access health informa tion online Indication:Breast pain Start:12-Jan-2014 Instruction Type:Patient Education How to access health informa tion online - Detail Indication:Breast pain Start:12-Jan-2014 Instruction Type:Patient Education Patient Instructions Indication:Breast pain Start:12-Jan-2014 Instruction Type:Provider Instructions for Treatment Patient Instructions Indication:Acid reflux Start:31-Aug-2013 Instruction Type:Provider Instructions for Treatment Name Dates Details Patient Instructions Indication:Upper respiratory infection, viral Start:18-Oct-2018 Instruction Type:Provider Instructions for Treatment How to access health informa tion online Indication:Nonsmoker Start:18-Oct-2018 Instruction Type:Patient Education How to access health informa tion online - Detail Indication:Nonsmoker Start:18-Oct-2018 Instruction Type:Patient Education How to access health informa tion online Indication:BMI 40.0-44.9, adult Start:05-May-2018 Instruction Type:Patient Education How to access health informa tion online - Detail Indication:BMI 40.0-44.9, adult Start:05-May-2018 Instruction Type:Patient Education Patient Instructions Indication:BMI 40.0-44.9, adult Start:05-May-2018 Instruction Type:Provider Instructions for Treatment How to access health informa tion online Indication:Nonsmoker Start:23-Feb-2018 Instruction Type:Patient Education How to access health informa tion online - Detail Indication:Nonsmoker Start:23-Feb-2018 Instruction Type:Patient Education Patient Instructions Indication:Nonsmoker Start:23-Feb-2018 Instruction Type:Provider Instructions for Treatment How to access health informa tion online Indication:BMI 40.0-44.9, adult Start:15-Feb-2018 Instruction Type:Patient Education How to access health informa tion online - Detail Indication:BMI 40.0-44.9, adult Start:15-Feb-2018 Instruction Type:Patient Education Patient Instructions Indication:Decreased range of motion of left lower extremity Start:15-Feb-2018 Instruction Type:Provider Instructions for Treatment How to access health informa tion online Indication:BMI 40.0-44.9, adult Start:14-Dec-2017 Instruction Type:Patient Education How to access health informa tion online - Detail Indication:BMI 40.0-44.9, adult Start:14-Dec-2017 Instruction Type:Patient Education Patient Instructions Indication:BMI 40.0-44.9, adult Start:14-Dec-2017 Instruction Type:Provider Instructions for Treatment How to access health informa tion online Indication:BMI 40.0-44.9, adult Start:11-Aug-2017 Instruction Type:Patient Education How to access health informa tion online - Detail Indication:BMI 40.0-44.9, adult Start:11-Aug-2017 Instruction Type:Patient Education Patient Instructions Indication:Acute asthma exacerbation (Renamed from Asthma with acute exacerbation) Start:11-Aug-2017 Instruction Type:Provider Instructions for Treatment How to access health informa tion online Indication:BMI 40.0-44.9, adult Start:10-Aug-2017 Instruction Type:Patient Education How to access health informa tion online - Detail Indication:BMI 40.0-44.9, adult Start:10-Aug-2017 Instruction Type:Patient Education Patient Instructions Indication:Acute asthma exacerbation (Renamed from Asthma with acute exacerbation) Start:10-Aug-2017 Instruction Type:Provider Instructions for Treatment How to access health informa tion online Indication:Cough Start:05-Aug-2017 Instruction Type:Patient Education How to access health informa tion online - Detail Indication:Cough Start:05-Aug-2017 Instruction Type:Patient Education Patient Instructions Indication:Cough Start:05-Aug-2017 Instruction Type:Provider Instructions for Treatment DISCONTINUED - LIPID PANEL ( 44902) Indication:SCREENING FOR HYPERLIPIDEMIA (Renamed from Encounter for screening for lipoid disorders) Start:06-May-2017 Instruction Type:Patient Education How to access health informa tion online Indication:Sinus pressure Start:06-May-2017 Instruction Type:Patient Education How to access health informa tion online - Detail Indication:Sinus pressure Start:06-May-2017 Instruction Type:Patient Education Patient Instructions Indication:Sinus pressure Start:06-May-2017 Instruction Type:Provider Instructions for Treatment How to access health informa tion online Indication:Flu-like symptoms Start:30-Mar-2017 Instruction Type:Patient Education How to access health informa tion online - Detail Indication:Flu-like symptoms Start:30-Mar-2017 Instruction Type:Patient Education Patient Instructions Indication:Flu-like symptoms Start:30-Mar-2017 Instruction Type:Provider Instructions for Treatment How to access health informa tion online Indication:Low back pain potentially associated with radiculopathy Start:02-Nov-2015 Instruction Type:Patient Education How to access health informa tion online - Detail Indication:Low back pain potentially associated with radiculopathy Start:02-Nov-2015 Instruction Type:Patient Education Patient Instructions Indication:Low back pain potentially associated with radiculopathy Start:02-Nov-2015 Instruction Type:Provider Instructions for Treatment How to access health informa tion online Indication:Wheezing (Renamed from Asthmatic breathing) Start:23-Jan-2014 Instruction Type:Patient Education How to access health informa tion online - Detail Indication:Wheezing (Renamed from Asthmatic breathing) Start:23-Jan-2014 Instruction Type:Patient Education Patient Instructions Indication:Wheezing (Renamed from Asthmatic breathing) Start:23-Jan-2014 Instruction Type:Provider Instructions for Treatment How to access health informa tion online Indication:Breast pain Start:12-Jan-2014 Instruction Type:Patient Education How to access health informa tion online - Detail Indication:Breast pain Start:12-Jan-2014 Instruction Type:Patient Education Patient Instructions Indication:Breast pain Start:12-Jan-2014 Instruction Type:Provider Instructions for Treatment Patient Instructions Indication:Acid reflux Start:31-Aug-2013 Instruction Type:Provider Instructions for Treatment Name Dates Details Patient Instructions Indication:Upper respiratory infection, viral Start:18-Oct-2018 Instruction Type:Provider Instructions for Treatment How to access health informa tion online Indication:Nonsmoker Start:18-Oct-2018 Instruction Type:Patient Education How to access health informa tion online - Detail Indication:Nonsmoker Start:18-Oct-2018 Instruction Type:Patient Education How to access health informa tion online Indication:BMI 40.0-44.9, adult Start:05-May-2018 Instruction Type:Patient Education How to access health informa tion online - Detail Indication:BMI 40.0-44.9, adult Start:05-May-2018 Instruction Type:Patient Education Patient Instructions Indication:BMI 40.0-44.9, adult Start:05-May-2018 Instruction Type:Provider Instructions for Treatment How to access health informa tion online Indication:Nonsmoker Start:23-Feb-2018 Instruction Type:Patient Education How to access health informa tion online - Detail Indication:Nonsmoker Start:23-Feb-2018 Instruction Type:Patient Education Patient Instructions Indication:Nonsmoker Start:23-Feb-2018 Instruction Type:Provider Instructions for Treatment How to access health informa tion online Indication:BMI 40.0-44.9, adult Start:15-Feb-2018 Instruction Type:Patient Education How to access health informa tion online - Detail Indication:BMI 40.0-44.9, adult Start:15-Feb-2018 Instruction Type:Patient Education Patient Instructions Indication:Decreased range of motion of left lower extremity Start:15-Feb-2018 Instruction Type:Provider Instructions for Treatment How to access health informa tion online Indication:BMI 40.0-44.9, adult Start:14-Dec-2017 Instruction Type:Patient Education How to access health informa tion online - Detail Indication:BMI 40.0-44.9, adult Start:14-Dec-2017 Instruction Type:Patient Education Patient Instructions Indication:BMI 40.0-44.9, adult Start:14-Dec-2017 Instruction Type:Provider Instructions for Treatment How to access health informa tion online Indication:BMI 40.0-44.9, adult Start:11-Aug-2017 Instruction Type:Patient Education How to access health informa tion online - Detail Indication:BMI 40.0-44.9, adult Start:11-Aug-2017 Instruction Type:Patient Education Patient Instructions Indication:Acute asthma exacerbation (Renamed from Asthma with acute exacerbation) Start:11-Aug-2017 Instruction Type:Provider Instructions for Treatment How to access health informa tion online Indication:BMI 40.0-44.9, adult Start:10-Aug-2017 Instruction Type:Patient Education How to access health informa tion online - Detail Indication:BMI 40.0-44.9, adult Start:10-Aug-2017 Instruction Type:Patient Education Patient Instructions Indication:Acute asthma exacerbation (Renamed from Asthma with acute exacerbation) Start:10-Aug-2017 Instruction Type:Provider Instructions for Treatment How to access health informa tion online Indication:Cough Start:05-Aug-2017 Instruction Type:Patient Education How to access health informa tion online - Detail Indication:Cough Start:05-Aug-2017 Instruction Type:Patient Education Patient Instructions Indication:Cough Start:05-Aug-2017 Instruction Type:Provider Instructions for Treatment DISCONTINUED - LIPID PANEL ( 71071) Indication:SCREENING FOR HYPERLIPIDEMIA (Renamed from Encounter for screening for lipoid disorders) Start:06-May-2017 Instruction Type:Patient Education How to access health informa tion online Indication:Sinus pressure Start:06-May-2017 Instruction Type:Patient Education How to access health informa tion online - Detail Indication:Sinus pressure Start:06-May-2017 Instruction Type:Patient Education Patient Instructions Indication:Sinus pressure Start:06-May-2017 Instruction Type:Provider Instructions for Treatment How to access health informa tion online Indication:Flu-like symptoms Start:30-Mar-2017 Instruction Type:Patient Education How to access health informa tion online - Detail Indication:Flu-like symptoms Start:30-Mar-2017 Instruction Type:Patient Education Patient Instructions Indication:Flu-like symptoms Start:30-Mar-2017 Instruction Type:Provider Instructions for Treatment How to access health informa tion online Indication:Low back pain potentially associated with radiculopathy Start:02-Nov-2015 Instruction Type:Patient Education How to access health informa tion online - Detail Indication:Low back pain potentially associated with radiculopathy Start:02-Nov-2015 Instruction Type:Patient Education Patient Instructions Indication:Low back pain potentially associated with radiculopathy Start:02-Nov-2015 Instruction Type:Provider Instructions for Treatment How to access health informa tion online Indication:Wheezing (Renamed from Asthmatic breathing) Start:23-Jan-2014 Instruction Type:Patient Education How to access health informa tion online - Detail Indication:Wheezing (Renamed from Asthmatic breathing) Start:23-Jan-2014 Instruction Type:Patient Education Patient Instructions Indication:Wheezing (Renamed from Asthmatic breathing) Start:23-Jan-2014 Instruction Type:Provider Instructions for Treatment How to access health informa tion online Indication:Breast pain Start:12-Jan-2014 Instruction Type:Patient Education How to access health informa tion online - Detail Indication:Breast pain Start:12-Jan-2014 Instruction Type:Patient Education Patient Instructions Indication:Breast pain Start:12-Jan-2014 Instruction Type:Provider Instructions for Treatment Patient Instructions Indication:Acid reflux Start:31-Aug-2013 Instruction Type:Provider Instructions for Treatment Name Dates Details Patient Instructions Indication:Upper respiratory infection, viral Start:18-Oct-2018 Instruction Type:Provider Instructions for Treatment How to access health informa tion online Indication:Nonsmoker Start:18-Oct-2018 Instruction Type:Patient Education How to access health informa tion online - Detail Indication:Nonsmoker Start:18-Oct-2018 Instruction Type:Patient Education How to access health informa tion online Indication:BMI 40.0-44.9, adult Start:05-May-2018 Instruction Type:Patient Education How to access health informa tion online - Detail Indication:BMI 40.0-44.9, adult Start:05-May-2018 Instruction Type:Patient Education Patient Instructions Indication:BMI 40.0-44.9, adult Start:05-May-2018 Instruction Type:Provider Instructions for Treatment How to access health informa tion online Indication:Nonsmoker Start:23-Feb-2018 Instruction Type:Patient Education How to access health informa tion online - Detail Indication:Nonsmoker Start:23-Feb-2018 Instruction Type:Patient Education Patient Instructions Indication:Nonsmoker Start:23-Feb-2018 Instruction Type:Provider Instructions for Treatment How to access health informa tion online Indication:BMI 40.0-44.9, adult Start:15-Feb-2018 Instruction Type:Patient Education How to access health informa tion online - Detail Indication:BMI 40.0-44.9, adult Start:15-Feb-2018 Instruction Type:Patient Education Patient Instructions Indication:Decreased range of motion of left lower extremity Start:15-Feb-2018 Instruction Type:Provider Instructions for Treatment How to access health informa tion online Indication:BMI 40.0-44.9, adult Start:14-Dec-2017 Instruction Type:Patient Education How to access health informa tion online - Detail Indication:BMI 40.0-44.9, adult Start:14-Dec-2017 Instruction Type:Patient Education Patient Instructions Indication:BMI 40.0-44.9, adult Start:14-Dec-2017 Instruction Type:Provider Instructions for Treatment How to access health informa tion online Indication:BMI 40.0-44.9, adult Start:11-Aug-2017 Instruction Type:Patient Education How to access health informa tion online - Detail Indication:BMI 40.0-44.9, adult Start:11-Aug-2017 Instruction Type:Patient Education Patient Instructions Indication:Acute asthma exacerbation (Renamed from Asthma with acute exacerbation) Start:11-Aug-2017 Instruction Type:Provider Instructions for Treatment How to access health informa tion online Indication:BMI 40.0-44.9, adult Start:10-Aug-2017 Instruction Type:Patient Education How to access health informa tion online - Detail Indication:BMI 40.0-44.9, adult Start:10-Aug-2017 Instruction Type:Patient Education Patient Instructions Indication:Acute asthma exacerbation (Renamed from Asthma with acute exacerbation) Start:10-Aug-2017 Instruction Type:Provider Instructions for Treatment How to access health informa tion online Indication:Cough Start:05-Aug-2017 Instruction Type:Patient Education How to access health informa tion online - Detail Indication:Cough Start:05-Aug-2017 Instruction Type:Patient Education Patient Instructions Indication:Cough Start:05-Aug-2017 Instruction Type:Provider Instructions for Treatment DISCONTINUED - LIPID PANEL ( [id number]) Indication:SCREENING FOR HYPERLIPIDEMIA (Renamed from Encounter for screening for lipoid disorders) Start:06-May-2017 Instruction Type:Patient Education How to access health informa tion online Indication:Sinus pressure Start:06-May-2017 Instruction Type:Patient Education How to access health informa tion online - Detail Indication:Sinus pressure Start:06-May-2017 Instruction Type:Patient Education Patient Instructions Indication:Sinus pressure Start:06-May-2017 Instruction Type:Provider Instructions for Treatment How to access health informa tion online Indication:Flu-like symptoms Start:30-Mar-2017 Instruction Type:Patient Education How to access health informa tion online - Detail Indication:Flu-like symptoms Start:30-Mar-2017 Instruction Type:Patient Education Patient Instructions Indication:Flu-like symptoms Start:30-Mar-2017 Instruction Type:Provider Instructions for Treatment How to access health informa tion online Indication:Low back pain potentially associated with radiculopathy Start:02-Nov-2015 Instruction Type:Patient Education How to access health informa tion online - Detail Indication:Low back pain potentially associated with radiculopathy Start:02-Nov-2015 Instruction Type:Patient Education Patient Instructions Indication:Low back pain potentially associated with radiculopathy Start:02-Nov-2015 Instruction Type:Provider Instructions for Treatment How to access health informa tion online Indication:Wheezing (Renamed from Asthmatic breathing) Start:23-Jan-2014 Instruction Type:Patient Education How to access health informa tion online - Detail Indication:Wheezing (Renamed from Asthmatic breathing) Start:23-Jan-2014 Instruction Type:Patient Education Patient Instructions Indication:Wheezing (Renamed from Asthmatic breathing) Start:23-Jan-2014 Instruction Type:Provider Instructions for Treatment How to access health informa tion online Indication:Breast pain Start:12-Jan-2014 Instruction Type:Patient Education How to access health informa tion online - Detail Indication:Breast pain Start:12-Jan-2014 Instruction Type:Patient Education Patient Instructions Indication:Breast pain Start:12-Jan-2014 Instruction Type:Provider Instructions for Treatment Patient Instructions Indication:Acid reflux Start:31-Aug-2013 Instruction Type:Provider Instructions for Treatment Name Dates Details How to access health informa tion online Indication:Nonsmoker Start:02-Mar-2019 Instruction Type:Patient Education How to access health informa tion online - Detail Indication:Nonsmoker Start:02-Mar-2019 Instruction Type:Patient Education Patient Instructions Indication:Nonsmoker Start:02-Mar-2019 Instruction Type:Provider Instructions for Treatment Patient Instructions Indication:Upper respiratory infection, viral Start:18-Oct-2018 Instruction Type:Provider Instructions for Treatment How to access health informa tion online Indication:Nonsmoker Start:18-Oct-2018 Instruction Type:Patient Education How to access health informa tion online - Detail Indication:Nonsmoker Start:18-Oct-2018 Instruction Type:Patient Education How to access health informa tion online Indication:BMI 40.0-44.9, adult Start:05-May-2018 Instruction Type:Patient Education How to access health informa tion online - Detail Indication:BMI 40.0-44.9, adult Start:05-May-2018 Instruction Type:Patient Education Patient Instructions Indication:BMI 40.0-44.9, adult Start:05-May-2018 Instruction Type:Provider Instructions for Treatment How to access health informa tion online Indication:Nonsmoker Start:23-Feb-2018 Instruction Type:Patient Education How to access health informa tion online - Detail Indication:Nonsmoker Start:23-Feb-2018 Instruction Type:Patient Education Patient Instructions Indication:Nonsmoker Start:23-Feb-2018 Instruction Type:Provider Instructions for Treatment How to access health informa tion online Indication:BMI 40.0-44.9, adult Start:15-Feb-2018 Instruction Type:Patient Education How to access health informa tion online - Detail Indication:BMI 40.0-44.9, adult Start:15-Feb-2018 Instruction Type:Patient Education Patient Instructions Indication:Decreased range of motion of left lower extremity Start:15-Feb-2018 Instruction Type:Provider Instructions for Treatment How to access health informa tion online Indication:BMI 40.0-44.9, adult Start:14-Dec-2017 Instruction Type:Patient Education How to access health informa tion online - Detail Indication:BMI 40.0-44.9, adult Start:14-Dec-2017 Instruction Type:Patient Education Patient Instructions Indication:BMI 40.0-44.9, adult Start:14-Dec-2017 Instruction Type:Provider Instructions for Treatment How to access health informa tion online Indication:BMI 40.0-44.9, adult Start:11-Aug-2017 Instruction Type:Patient Education How to access health informa tion online - Detail Indication:BMI 40.0-44.9, adult Start:11-Aug-2017 Instruction Type:Patient Education Patient Instructions Indication:Acute asthma exacerbation (Renamed from Asthma with acute exacerbation) Start:11-Aug-2017 Instruction Type:Provider Instructions for Treatment How to access health informa tion online Indication:BMI 40.0-44.9, adult Start:10-Aug-2017 Instruction Type:Patient Education How to access health informa tion online - Detail Indication:BMI 40.0-44.9, adult Start:10-Aug-2017 Instruction Type:Patient Education Patient Instructions Indication:Acute asthma exacerbation (Renamed from Asthma with acute exacerbation) Start:10-Aug-2017 Instruction Type:Provider Instructions for Treatment How to access health informa tion online Indication:Cough Start:05-Aug-2017 Instruction Type:Patient Education How to access health informa tion online - Detail Indication:Cough Start:05-Aug-2017 Instruction Type:Patient Education Patient Instructions Indication:Cough Start:05-Aug-2017 Instruction Type:Provider Instructions for Treatment DISCONTINUED - LIPID PANEL ( [id number]) Indication:SCREENING FOR HYPERLIPIDEMIA (Renamed from Encounter for screening for lipoid disorders) Start:06-May-2017 Instruction Type:Patient Education How to access health informa tion online Indication:Sinus pressure Start:06-May-2017 Instruction Type:Patient Education How to access health informa tion online - Detail Indication:Sinus pressure Start:06-May-2017 Instruction Type:Patient Education Patient Instructions Indication:Sinus pressure Start:06-May-2017 Instruction Type:Provider Instructions for Treatment How to access health informa tion online Indication:Flu-like symptoms Start:30-Mar-2017 Instruction Type:Patient Education How to access health informa tion online - Detail Indication:Flu-like symptoms Start:30-Mar-2017 Instruction Type:Patient Education Patient Instructions Indication:Flu-like symptoms Start:30-Mar-2017 Instruction Type:Provider Instructions for Treatment How to access health informa tion online Indication:Low back pain potentially associated with radiculopathy Start:02-Nov-2015 Instruction Type:Patient Education How to access health informa tion online - Detail Indication:Low back pain potentially associated with radiculopathy Start:02-Nov-2015 Instruction Type:Patient Education Patient Instructions Indication:Low back pain potentially associated with radiculopathy Start:02-Nov-2015 Instruction Type:Provider Instructions for Treatment How to access health informa tion online Indication:Wheezing (Renamed from Asthmatic breathing) Start:23-Jan-2014 Instruction Type:Patient Education How to access health informa tion online - Detail Indication:Wheezing (Renamed from Asthmatic breathing) Start:23-Jan-2014 Instruction Type:Patient Education Patient Instructions Indication:Wheezing (Renamed from Asthmatic breathing) Start:23-Jan-2014 Instruction Type:Provider Instructions for Treatment How to access health informa tion online Indication:Breast pain Start:12-Jan-2014 Instruction Type:Patient Education How to access health informa tion online - Detail Indication:Breast pain Start:12-Jan-2014 Instruction Type:Patient Education Patient Instructions Indication:Breast pain Start:12-Jan-2014 Instruction Type:Provider Instructions for Treatment Patient Instructions Indication:Acid reflux Start:31-Aug-2013 Instruction Type:Provider Instructions for Treatment Name Dates Details How to access health informa tion online Indication:Nonsmoker Start:02-Mar-2019 Instruction Type:Patient Education How to access health informa tion online - Detail Indication:Nonsmoker Start:02-Mar-2019 Instruction Type:Patient Education Patient Instructions Indication:Nonsmoker Start:02-Mar-2019 Instruction Type:Provider Instructions for Treatment Patient Instructions Indication:Upper respiratory infection, viral Start:18-Oct-2018 Instruction Type:Provider Instructions for Treatment How to access health informa tion online Indication:Nonsmoker Start:18-Oct-2018 Instruction Type:Patient Education How to access health informa tion online - Detail Indication:Nonsmoker Start:18-Oct-2018 Instruction Type:Patient Education How to access health informa tion online Indication:BMI 40.0-44.9, adult Start:05-May-2018 Instruction Type:Patient Education How to access health informa tion online - Detail Indication:BMI 40.0-44.9, adult Start:05-May-2018 Instruction Type:Patient Education Patient Instructions Indication:BMI 40.0-44.9, adult Start:05-May-2018 Instruction Type:Provider Instructions for Treatment How to access health informa tion online Indication:Nonsmoker Start:23-Feb-2018 Instruction Type:Patient Education How to access health informa tion online - Detail Indication:Nonsmoker Start:23-Feb-2018 Instruction Type:Patient Education Patient Instructions Indication:Nonsmoker Start:23-Feb-2018 Instruction Type:Provider Instructions for Treatment How to access health informa tion online Indication:BMI 40.0-44.9, adult Start:15-Feb-2018 Instruction Type:Patient Education How to access health informa tion online - Detail Indication:BMI 40.0-44.9, adult Start:15-Feb-2018 Instruction Type:Patient Education Patient Instructions Indication:Decreased range of motion of left lower extremity Start:15-Feb-2018 Instruction Type:Provider Instructions for Treatment How to access health informa tion online Indication:BMI 40.0-44.9, adult Start:14-Dec-2017 Instruction Type:Patient Education How to access health informa tion online - Detail Indication:BMI 40.0-44.9, adult Start:14-Dec-2017 Instruction Type:Patient Education Patient Instructions Indication:BMI 40.0-44.9, adult Start:14-Dec-2017 Instruction Type:Provider Instructions for Treatment How to access health informa tion online Indication:BMI 40.0-44.9, adult Start:11-Aug-2017 Instruction Type:Patient Education How to access health informa tion online - Detail Indication:BMI 40.0-44.9, adult Start:11-Aug-2017 Instruction Type:Patient Education Patient Instructions Indication:Acute asthma exacerbation (Renamed from Asthma with acute exacerbation) Start:11-Aug-2017 Instruction Type:Provider Instructions for Treatment How to access health informa tion online Indication:BMI 40.0-44.9, adult Start:10-Aug-2017 Instruction Type:Patient Education How to access health informa tion online - Detail Indication:BMI 40.0-44.9, adult Start:10-Aug-2017 Instruction Type:Patient Education Patient Instructions Indication:Acute asthma exacerbation (Renamed from Asthma with acute exacerbation) Start:10-Aug-2017 Instruction Type:Provider Instructions for Treatment How to access health informa tion online Indication:Cough Start:05-Aug-2017 Instruction Type:Patient Education How to access health informa tion online - Detail Indication:Cough Start:05-Aug-2017 Instruction Type:Patient Education Patient Instructions Indication:Cough Start:05-Aug-2017 Instruction Type:Provider Instructions for Treatment DISCONTINUED - LIPID PANEL ( [id number]) Indication:SCREENING FOR HYPERLIPIDEMIA (Renamed from Encounter for screening for lipoid disorders) Start:06-May-2017 Instruction Type:Patient Education How to access health informa tion online Indication:Sinus pressure Start:06-May-2017 Instruction Type:Patient Education How to access health informa tion online - Detail Indication:Sinus pressure Start:06-May-2017 Instruction Type:Patient Education Patient Instructions Indication:Sinus pressure Start:06-May-2017 Instruction Type:Provider Instructions for Treatment How to access health informa tion online Indication:Flu-like symptoms Start:30-Mar-2017 Instruction Type:Patient Education How to access health informa tion online - Detail Indication:Flu-like symptoms Start:30-Mar-2017 Instruction Type:Patient Education Patient Instructions Indication:Flu-like symptoms Start:30-Mar-2017 Instruction Type:Provider Instructions for Treatment How to access health informa tion online Indication:Low back pain potentially associated with radiculopathy Start:02-Nov-2015 Instruction Type:Patient Education How to access health informa tion online - Detail Indication:Low back pain potentially associated with radiculopathy Start:02-Nov-2015 Instruction Type:Patient Education Patient Instructions Indication:Low back pain potentially associated with radiculopathy Start:02-Nov-2015 Instruction Type:Provider Instructions for Treatment How to access health informa tion online Indication:Wheezing (Renamed from Asthmatic breathing) Start:23-Jan-2014 Instruction Type:Patient Education How to access health informa tion online - Detail Indication:Wheezing (Renamed from Asthmatic breathing) Start:23-Jan-2014 Instruction Type:Patient Education Patient Instructions Indication:Wheezing (Renamed from Asthmatic breathing) Start:23-Jan-2014 Instruction Type:Provider Instructions for Treatment How to access health informa tion online Indication:Breast pain Start:12-Jan-2014 Instruction Type:Patient Education How to access health informa tion online - Detail Indication:Breast pain Start:12-Jan-2014 Instruction Type:Patient Education Patient Instructions Indication:Breast pain Start:12-Jan-2014 Instruction Type:Provider Instructions for Treatment Patient Instructions Indication:Acid reflux Start:31-Aug-2013 Instruction Type:Provider Instructions for Treatment Name Dates Details How to access health informa tion online Indication:Nonsmoker Start:02-Mar-2019 Instruction Type:Patient Education How to access health informa tion online - Detail Indication:Nonsmoker Start:02-Mar-2019 Instruction Type:Patient Education Patient Instructions Indication:Nonsmoker Start:02-Mar-2019 Instruction Type:Provider Instructions for Treatment Patient Instructions Indication:Upper respiratory infection, viral Start:18-Oct-2018 Instruction Type:Provider Instructions for Treatment How to access health informa tion online Indication:Nonsmoker Start:18-Oct-2018 Instruction Type:Patient Education How to access health informa tion online - Detail Indication:Nonsmoker Start:18-Oct-2018 Instruction Type:Patient Education How to access health informa tion online Indication:BMI 40.0-44.9, adult Start:05-May-2018 Instruction Type:Patient Education How to access health informa tion online - Detail Indication:BMI 40.0-44.9, adult Start:05-May-2018 Instruction Type:Patient Education Patient Instructions Indication:BMI 40.0-44.9, adult Start:05-May-2018 Instruction Type:Provider Instructions for Treatment How to access health informa tion online Indication:Nonsmoker Start:23-Feb-2018 Instruction Type:Patient Education How to access health informa tion online - Detail Indication:Nonsmoker Start:23-Feb-2018 Instruction Type:Patient Education Patient Instructions Indication:Nonsmoker Start:23-Feb-2018 Instruction Type:Provider Instructions for Treatment How to access health informa tion online Indication:BMI 40.0-44.9, adult Start:15-Feb-2018 Instruction Type:Patient Education How to access health informa tion online - Detail Indication:BMI 40.0-44.9, adult Start:15-Feb-2018 Instruction Type:Patient Education Patient Instructions Indication:Decreased range of motion of left lower extremity Start:15-Feb-2018 Instruction Type:Provider Instructions for Treatment How to access health informa tion online Indication:BMI 40.0-44.9, adult Start:14-Dec-2017 Instruction Type:Patient Education How to access health informa tion online - Detail Indication:BMI 40.0-44.9, adult Start:14-Dec-2017 Instruction Type:Patient Education Patient Instructions Indication:BMI 40.0-44.9, adult Start:14-Dec-2017 Instruction Type:Provider Instructions for Treatment How to access health informa tion online Indication:BMI 40.0-44.9, adult Start:11-Aug-2017 Instruction Type:Patient Education How to access health informa tion online - Detail Indication:BMI 40.0-44.9, adult Start:11-Aug-2017 Instruction Type:Patient Education Patient Instructions Indication:Acute asthma exacerbation (Renamed from Asthma with acute exacerbation) Start:11-Aug-2017 Instruction Type:Provider Instructions for Treatment How to access health informa tion online Indication:BMI 40.0-44.9, adult Start:10-Aug-2017 Instruction Type:Patient Education How to access health informa tion online - Detail Indication:BMI 40.0-44.9, adult Start:10-Aug-2017 Instruction Type:Patient Education Patient Instructions Indication:Acute asthma exacerbation (Renamed from Asthma with acute exacerbation) Start:10-Aug-2017 Instruction Type:Provider Instructions for Treatment How to access health informa tion online Indication:Cough Start:05-Aug-2017 Instruction Type:Patient Education How to access health informa tion online - Detail Indication:Cough Start:05-Aug-2017 Instruction Type:Patient Education Patient Instructions Indication:Cough Start:05-Aug-2017 Instruction Type:Provider Instructions for Treatment DISCONTINUED - LIPID PANEL ( [id number]) Indication:SCREENING FOR HYPERLIPIDEMIA (Renamed from Encounter for screening for lipoid disorders) Start:06-May-2017 Instruction Type:Patient Education How to access health informa tion online Indication:Sinus pressure Start:06-May-2017 Instruction Type:Patient Education How to access health informa tion online - Detail Indication:Sinus pressure Start:06-May-2017 Instruction Type:Patient Education Patient Instructions Indication:Sinus pressure Start:06-May-2017 Instruction Type:Provider Instructions for Treatment How to access health informa tion online Indication:Flu-like symptoms Start:30-Mar-2017 Instruction Type:Patient Education How to access health informa tion online - Detail Indication:Flu-like symptoms Start:30-Mar-2017 Instruction Type:Patient Education Patient Instructions Indication:Flu-like symptoms Start:30-Mar-2017 Instruction Type:Provider Instructions for Treatment How to access health informa tion online Indication:Low back pain potentially associated with radiculopathy Start:02-Nov-2015 Instruction Type:Patient Education How to access health informa tion online - Detail Indication:Low back pain potentially associated with radiculopathy Start:02-Nov-2015 Instruction Type:Patient Education Patient Instructions Indication:Low back pain potentially associated with radiculopathy Start:02-Nov-2015 Instruction Type:Provider Instructions for Treatment How to access health informa tion online Indication:Wheezing (Renamed from Asthmatic breathing) Start:23-Jan-2014 Instruction Type:Patient Education How to access health informa tion online - Detail Indication:Wheezing (Renamed from Asthmatic breathing) Start:23-Jan-2014 Instruction Type:Patient Education Patient Instructions Indication:Wheezing (Renamed from Asthmatic breathing) Start:23-Jan-2014 Instruction Type:Provider Instructions for Treatment How to access health informa tion online Indication:Breast pain Start:12-Jan-2014 Instruction Type:Patient Education How to access health informa tion online - Detail Indication:Breast pain Start:12-Jan-2014 Instruction Type:Patient Education Patient Instructions Indication:Breast pain Start:12-Jan-2014 Instruction Type:Provider Instructions for Treatment Patient Instructions Indication:Acid reflux Start:31-Aug-2013 Instruction Type:Provider Instructions for Treatment Name Dates Details How to access health informa tion online Indication:Nonsmoker Start:05-Dec-2019 Instruction Type:Patient Education How to access health informa tion online - Detail Indication:Nonsmoker Start:05-Dec-2019 Instruction Type:Patient Education Patient Instructions Indication:Nonsmoker Start:05-Dec-2019 Instruction Type:Provider Instructions for Treatment How to access health informa tion online Indication:Sore throat Start:23-Mar-2019 Instruction Type:Patient Education How to access health informa tion online - Detail Indication:Sore throat Start:23-Mar-2019 Instruction Type:Patient Education Patient Instructions Indication:Sore throat Start:23-Mar-2019 Instruction Type:Provider Instructions for Treatment How to access health informa tion online Indication:Nonsmoker Start:02-Mar-2019 Instruction Type:Patient Education How to access health informa tion online - Detail Indication:Nonsmoker Start:02-Mar-2019 Instruction Type:Patient Education Patient Instructions Indication:Nonsmoker Start:02-Mar-2019 Instruction Type:Provider Instructions for Treatment Patient Instructions Indication:Upper respiratory infection, viral Start:18-Oct-2018 Instruction Type:Provider Instructions for Treatment How to access health informa tion online Indication:Nonsmoker Start:18-Oct-2018 Instruction Type:Patient Education How to access health informa tion online - Detail Indication:Nonsmoker Start:18-Oct-2018 Instruction Type:Patient Education How to access health informa tion online Indication:BMI 40.0-44.9, adult Start:05-May-2018 Instruction Type:Patient Education How to access health informa tion online - Detail Indication:BMI 40.0-44.9, adult Start:05-May-2018 Instruction Type:Patient Education Patient Instructions Indication:BMI 40.0-44.9, adult Start:05-May-2018 Instruction Type:Provider Instructions for Treatment How to access health informa tion online Indication:Nonsmoker Start:23-Feb-2018 Instruction Type:Patient Education How to access health informa tion online - Detail Indication:Nonsmoker Start:23-Feb-2018 Instruction Type:Patient Education Patient Instructions Indication:Nonsmoker Start:23-Feb-2018 Instruction Type:Provider Instructions for Treatment How to access health informa tion online Indication:BMI 40.0-44.9, adult Start:15-Feb-2018 Instruction Type:Patient Education How to access health informa tion online - Detail Indication:BMI 40.0-44.9, adult Start:15-Feb-2018 Instruction Type:Patient Education Patient Instructions Indication:Decreased range of motion of left lower extremity Start:15-Feb-2018 Instruction Type:Provider Instructions for Treatment How to access health informa tion online Indication:BMI 40.0-44.9, adult Start:14-Dec-2017 Instruction Type:Patient Education How to access health informa tion online - Detail Indication:BMI 40.0-44.9, adult Start:14-Dec-2017 Instruction Type:Patient Education Patient Instructions Indication:BMI 40.0-44.9, adult Start:14-Dec-2017 Instruction Type:Provider Instructions for Treatment How to access health informa tion online Indication:BMI 40.0-44.9, adult Start:11-Aug-2017 Instruction Type:Patient Education How to access health informa tion online - Detail Indication:BMI 40.0-44.9, adult Start:11-Aug-2017 Instruction Type:Patient Education Patient Instructions Indication:Acute asthma exacerbation (Renamed from Asthma with acute exacerbation) Start:11-Aug-2017 Instruction Type:Provider Instructions for Treatment How to access health informa tion online Indication:BMI 40.0-44.9, adult Start:10-Aug-2017 Instruction Type:Patient Education How to access health informa tion online - Detail Indication:BMI 40.0-44.9, adult Start:10-Aug-2017 Instruction Type:Patient Education Patient Instructions Indication:Acute asthma exacerbation (Renamed from Asthma with acute exacerbation) Start:10-Aug-2017 Instruction Type:Provider Instructions for Treatment How to access health informa tion online Indication:Cough Start:05-Aug-2017 Instruction Type:Patient Education How to access health informa tion online - Detail Indication:Cough Start:05-Aug-2017 Instruction Type:Patient Education Patient Instructions Indication:Cough Start:05-Aug-2017 Instruction Type:Provider Instructions for Treatment DISCONTINUED - LIPID PANEL ( [id number]) Indication:SCREENING FOR HYPERLIPIDEMIA (Renamed from Encounter for screening for lipoid disorders) Start:06-May-2017 Instruction Type:Patient Education How to access health informa tion online Indication:Sinus pressure Start:06-May-2017 Instruction Type:Patient Education How to access health informa tion online - Detail Indication:Sinus pressure Start:06-May-2017 Instruction Type:Patient Education Patient Instructions Indication:Sinus pressure Start:06-May-2017 Instruction Type:Provider Instructions for Treatment How to access health informa tion online Indication:Flu-like symptoms Start:30-Mar-2017 Instruction Type:Patient Education How to access health informa tion online - Detail Indication:Flu-like symptoms Start:30-Mar-2017 Instruction Type:Patient Education Patient Instructions Indication:Flu-like symptoms Start:30-Mar-2017 Instruction Type:Provider Instructions for Treatment How to access health informa tion online Indication:Low back pain potentially associated with radiculopathy Start:02-Nov-2015 Instruction Type:Patient Education How to access health informa tion online - Detail Indication:Low back pain potentially associated with radiculopathy Start:02-Nov-2015 Instruction Type:Patient Education Patient Instructions Indication:Low back pain potentially associated with radiculopathy Start:02-Nov-2015 Instruction Type:Provider Instructions for Treatment How to access health informa tion online Indication:Wheezing (Renamed from Asthmatic breathing) Start:23-Jan-2014 Instruction Type:Patient Education How to access health informa tion online - Detail Indication:Wheezing (Renamed from Asthmatic breathing) Start:23-Jan-2014 Instruction Type:Patient Education Patient Instructions Indication:Wheezing (Renamed from Asthmatic breathing) Start:23-Jan-2014 Instruction Type:Provider Instructions for Treatment How to access health informa tion online Indication:Breast pain Start:12-Jan-2014 Instruction Type:Patient Education How to access health informa tion online - Detail Indication:Breast pain Start:12-Jan-2014 Instruction Type:Patient Education Patient Instructions Indication:Breast pain Start:12-Jan-2014 Instruction Type:Provider Instructions for Treatment Patient Instructions Indication:Acid reflux Start:31-Aug-2013 Instruction Type:Provider Instructions for Treatment Name Dates Details How to access health informa tion online Indication:Nonsmoker Start:05-Dec-2019 Instruction Type:Patient Education How to access health informa tion online - Detail Indication:Nonsmoker Start:05-Dec-2019 Instruction Type:Patient Education Patient Instructions Indication:Nonsmoker Start:05-Dec-2019 Instruction Type:Provider Instructions for Treatment How to access health informa tion online Indication:Sore throat Start:23-Mar-2019 Instruction Type:Patient Education How to access health informa tion online - Detail Indication:Sore throat Start:23-Mar-2019 Instruction Type:Patient Education Patient Instructions Indication:Sore throat Start:23-Mar-2019 Instruction Type:Provider Instructions for Treatment How to access health informa tion online Indication:Nonsmoker Start:02-Mar-2019 Instruction Type:Patient Education How to access health informa tion online - Detail Indication:Nonsmoker Start:02-Mar-2019 Instruction Type:Patient Education Patient Instructions Indication:Nonsmoker Start:02-Mar-2019 Instruction Type:Provider Instructions for Treatment Patient Instructions Indication:Upper respiratory infection, viral Start:18-Oct-2018 Instruction Type:Provider Instructions for Treatment How to access health informa tion online Indication:Nonsmoker Start:18-Oct-2018 Instruction Type:Patient Education How to access health informa tion online - Detail Indication:Nonsmoker Start:18-Oct-2018 Instruction Type:Patient Education How to access health informa tion online Indication:BMI 40.0-44.9, adult Start:05-May-2018 Instruction Type:Patient Education How to access health informa tion online - Detail Indication:BMI 40.0-44.9, adult Start:05-May-2018 Instruction Type:Patient Education Patient Instructions Indication:BMI 40.0-44.9, adult Start:05-May-2018 Instruction Type:Provider Instructions for Treatment How to access health informa tion online Indication:Nonsmoker Start:23-Feb-2018 Instruction Type:Patient Education How to access health informa tion online - Detail Indication:Nonsmoker Start:23-Feb-2018 Instruction Type:Patient Education Patient Instructions Indication:Nonsmoker Start:23-Feb-2018 Instruction Type:Provider Instructions for Treatment How to access health informa tion online Indication:BMI 40.0-44.9, adult Start:15-Feb-2018 Instruction Type:Patient Education How to access health informa tion online - Detail Indication:BMI 40.0-44.9, adult Start:15-Feb-2018 Instruction Type:Patient Education Patient Instructions Indication:Decreased range of motion of left lower extremity Start:15-Feb-2018 Instruction Type:Provider Instructions for Treatment How to access health informa tion online Indication:BMI 40.0-44.9, adult Start:14-Dec-2017 Instruction Type:Patient Education How to access health informa tion online - Detail Indication:BMI 40.0-44.9, adult Start:14-Dec-2017 Instruction Type:Patient Education Patient Instructions Indication:BMI 40.0-44.9, adult Start:14-Dec-2017 Instruction Type:Provider Instructions for Treatment How to access health informa tion online Indication:BMI 40.0-44.9, adult Start:11-Aug-2017 Instruction Type:Patient Education How to access health informa tion online - Detail Indication:BMI 40.0-44.9, adult Start:11-Aug-2017 Instruction Type:Patient Education Patient Instructions Indication:Acute asthma exacerbation (Renamed from Asthma with acute exacerbation) Start:11-Aug-2017 Instruction Type:Provider Instructions for Treatment How to access health informa tion online Indication:BMI 40.0-44.9, adult Start:10-Aug-2017 Instruction Type:Patient Education How to access health informa tion online - Detail Indication:BMI 40.0-44.9, adult Start:10-Aug-2017 Instruction Type:Patient Education Patient Instructions Indication:Acute asthma exacerbation (Renamed from Asthma with acute exacerbation) Start:10-Aug-2017 Instruction Type:Provider Instructions for Treatment How to access health informa tion online Indication:Cough Start:05-Aug-2017 Instruction Type:Patient Education How to access health informa tion online - Detail Indication:Cough Start:05-Aug-2017 Instruction Type:Patient Education Patient Instructions Indication:Cough Start:05-Aug-2017 Instruction Type:Provider Instructions for Treatment DISCONTINUED - LIPID PANEL ( [id number]) Indication:SCREENING FOR HYPERLIPIDEMIA (Renamed from Encounter for screening for lipoid disorders) Start:06-May-2017 Instruction Type:Patient Education How to access health informa tion online Indication:Sinus pressure Start:06-May-2017 Instruction Type:Patient Education How to access health informa tion online - Detail Indication:Sinus pressure Start:06-May-2017 Instruction Type:Patient Education Patient Instructions Indication:Sinus pressure Start:06-May-2017 Instruction Type:Provider Instructions for Treatment How to access health informa tion online Indication:Flu-like symptoms Start:30-Mar-2017 Instruction Type:Patient Education How to access health informa tion online - Detail Indication:Flu-like symptoms Start:30-Mar-2017 Instruction Type:Patient Education Patient Instructions Indication:Flu-like symptoms Start:30-Mar-2017 Instruction Type:Provider Instructions for Treatment How to access health informa tion online Indication:Low back pain potentially associated with radiculopathy Start:02-Nov-2015 Instruction Type:Patient Education How to access health informa tion online - Detail Indication:Low back pain potentially associated with radiculopathy Start:02-Nov-2015 Instruction Type:Patient Education Patient Instructions Indication:Low back pain potentially associated with radiculopathy Start:02-Nov-2015 Instruction Type:Provider Instructions for Treatment How to access health informa tion online Indication:Wheezing (Renamed from Asthmatic breathing) Start:23-Jan-2014 Instruction Type:Patient Education How to access health informa tion online - Detail Indication:Wheezing (Renamed from Asthmatic breathing) Start:23-Jan-2014 Instruction Type:Patient Education Patient Instructions Indication:Wheezing (Renamed from Asthmatic breathing) Start:23-Jan-2014 Instruction Type:Provider Instructions for Treatment How to access health informa tion online Indication:Breast pain Start:12-Jan-2014 Instruction Type:Patient Education How to access health informa tion online - Detail Indication:Breast pain Start:12-Jan-2014 Instruction Type:Patient Education Patient Instructions Indication:Breast pain Start:12-Jan-2014 Instruction Type:Provider Instructions for Treatment Patient Instructions Indication:Acid reflux Start:31-Aug-2013 Instruction Type:Provider Instructions for Treatment Name Dates Details How to access health informa tion online Indication:Obesity, morbid, BMI 40.0-49.9 Start:24-Jan-2020 Instruction Type:Patient Education How to access health informa tion online - Detail Indication:Obesity, morbid, BMI 40.0-49.9 Start:24-Jan-2020 Instruction Type:Patient Education Patient Instructions Indication:Obesity, morbid, BMI 40.0-49.9 Start:24-Jan-2020 Instruction Type:Provider Instructions for Treatment How to access health informa tion online Indication:Nonsmoker Start:05-Dec-2019 Instruction Type:Patient Education How to access health informa tion online - Detail Indication:Nonsmoker Start:05-Dec-2019 Instruction Type:Patient Education Patient Instructions Indication:Nonsmoker Start:05-Dec-2019 Instruction Type:Provider Instructions for Treatment How to access health informa tion online Indication:Sore throat Start:23-Mar-2019 Instruction Type:Patient Education How to access health informa tion online - Detail Indication:Sore throat Start:23-Mar-2019 Instruction Type:Patient Education Patient Instructions Indication:Sore throat Start:23-Mar-2019 Instruction Type:Provider Instructions for Treatment How to access health informa tion online Indication:Nonsmoker Start:02-Mar-2019 Instruction Type:Patient Education How to access health informa tion online - Detail Indication:Nonsmoker Start:02-Mar-2019 Instruction Type:Patient Education Patient Instructions Indication:Nonsmoker Start:02-Mar-2019 Instruction Type:Provider Instructions for Treatment Patient Instructions Indication:Upper respiratory infection, viral Start:18-Oct-2018 Instruction Type:Provider Instructions for Treatment How to access health informa tion online Indication:Nonsmoker Start:18-Oct-2018 Instruction Type:Patient Education How to access health informa tion online - Detail Indication:Nonsmoker Start:18-Oct-2018 Instruction Type:Patient Education How to access health informa tion online Indication:BMI 40.0-44.9, adult Start:05-May-2018 Instruction Type:Patient Education How to access health informa tion online - Detail Indication:BMI 40.0-44.9, adult Start:05-May-2018 Instruction Type:Patient Education Patient Instructions Indication:BMI 40.0-44.9, adult Start:05-May-2018 Instruction Type:Provider Instructions for Treatment How to access health informa tion online Indication:Nonsmoker Start:23-Feb-2018 Instruction Type:Patient Education How to access health informa tion online - Detail Indication:Nonsmoker Start:23-Feb-2018 Instruction Type:Patient Education Patient Instructions Indication:Nonsmoker Start:23-Feb-2018 Instruction Type:Provider Instructions for Treatment How to access health informa tion online Indication:BMI 40.0-44.9, adult Start:15-Feb-2018 Instruction Type:Patient Education How to access health informa tion online - Detail Indication:BMI 40.0-44.9, adult Start:15-Feb-2018 Instruction Type:Patient Education Patient Instructions Indication:Decreased range of motion of left lower extremity Start:15-Feb-2018 Instruction Type:Provider Instructions for Treatment How to access health informa tion online Indication:BMI 40.0-44.9, adult Start:14-Dec-2017 Instruction Type:Patient Education How to access health informa tion online - Detail Indication:BMI 40.0-44.9, adult Start:14-Dec-2017 Instruction Type:Patient Education Patient Instructions Indication:BMI 40.0-44.9, adult Start:14-Dec-2017 Instruction Type:Provider Instructions for Treatment How to access health informa tion online Indication:BMI 40.0-44.9, adult Start:11-Aug-2017 Instruction Type:Patient Education How to access health informa tion online - Detail Indication:BMI 40.0-44.9, adult Start:11-Aug-2017 Instruction Type:Patient Education Patient Instructions Indication:Acute asthma exacerbation (Renamed from Asthma with acute exacerbation) Start:11-Aug-2017 Instruction Type:Provider Instructions for Treatment How to access health informa tion online Indication:BMI 40.0-44.9, adult Start:10-Aug-2017 Instruction Type:Patient Education How to access health informa tion online - Detail Indication:BMI 40.0-44.9, adult Start:10-Aug-2017 Instruction Type:Patient Education Patient Instructions Indication:Acute asthma exacerbation (Renamed from Asthma with acute exacerbation) Start:10-Aug-2017 Instruction Type:Provider Instructions for Treatment How to access health informa tion online Indication:Cough Start:05-Aug-2017 Instruction Type:Patient Education How to access health informa tion online - Detail Indication:Cough Start:05-Aug-2017 Instruction Type:Patient Education Patient Instructions Indication:Cough Start:05-Aug-2017 Instruction Type:Provider Instructions for Treatment DISCONTINUED - LIPID PANEL ( [id number]) Indication:SCREENING FOR HYPERLIPIDEMIA (Renamed from Encounter for screening for lipoid disorders) Start:06-May-2017 Instruction Type:Patient Education How to access health informa tion online Indication:Sinus pressure Start:06-May-2017 Instruction Type:Patient Education How to access health informa tion online - Detail Indication:Sinus pressure Start:06-May-2017 Instruction Type:Patient Education Patient Instructions Indication:Sinus pressure Start:06-May-2017 Instruction Type:Provider Instructions for Treatment How to access health informa tion online Indication:Flu-like symptoms Start:30-Mar-2017 Instruction Type:Patient Education How to access health informa tion online - Detail Indication:Flu-like symptoms Start:30-Mar-2017 Instruction Type:Patient Education Patient Instructions Indication:Flu-like symptoms Start:30-Mar-2017 Instruction Type:Provider Instructions for Treatment How to access health informa tion online Indication:Low back pain potentially associated with radiculopathy Start:02-Nov-2015 Instruction Type:Patient Education How to access health informa tion online - Detail Indication:Low back pain potentially associated with radiculopathy Start:02-Nov-2015 Instruction Type:Patient Education Patient Instructions Indication:Low back pain potentially associated with radiculopathy Start:02-Nov-2015 Instruction Type:Provider Instructions for Treatment How to access health informa tion online Indication:Wheezing (Renamed from Asthmatic breathing) Start:23-Jan-2014 Instruction Type:Patient Education How to access health informa tion online - Detail Indication:Wheezing (Renamed from Asthmatic breathing) Start:23-Jan-2014 Instruction Type:Patient Education Patient Instructions Indication:Wheezing (Renamed from Asthmatic breathing) Start:23-Jan-2014 Instruction Type:Provider Instructions for Treatment How to access health informa tion online Indication:Breast pain Start:12-Jan-2014 Instruction Type:Patient Education How to access health informa tion online - Detail Indication:Breast pain Start:12-Jan-2014 Instruction Type:Patient Education Patient Instructions Indication:Breast pain Start:12-Jan-2014 Instruction Type:Provider Instructions for Treatment Patient Instructions Indication:Acid reflux Start:31-Aug-2013 Instruction Type:Provider Instructions for Treatment Name Dates Details How to access health informa tion online Indication:Obesity, morbid, BMI 40.0-49.9 Start:24-Jan-2020 Instruction Type:Patient Education How to access health informa tion online - Detail Indication:Obesity, morbid, BMI 40.0-49.9 Start:24-Jan-2020 Instruction Type:Patient Education Patient Instructions Indication:Obesity, morbid, BMI 40.0-49.9 Start:24-Jan-2020 Instruction Type:Provider Instructions for Treatment How to access health informa tion online Indication:Nonsmoker Start:05-Dec-2019 Instruction Type:Patient Education How to access health informa tion online - Detail Indication:Nonsmoker Start:05-Dec-2019 Instruction Type:Patient Education Patient Instructions Indication:Nonsmoker Start:05-Dec-2019 Instruction Type:Provider Instructions for Treatment How to access health informa tion online Indication:Sore throat Start:23-Mar-2019 Instruction Type:Patient Education How to access health informa tion online - Detail Indication:Sore throat Start:23-Mar-2019 Instruction Type:Patient Education Patient Instructions Indication:Sore throat Start:23-Mar-2019 Instruction Type:Provider Instructions for Treatment How to access health informa tion online Indication:Nonsmoker Start:02-Mar-2019 Instruction Type:Patient Education How to access health informa tion online - Detail Indication:Nonsmoker Start:02-Mar-2019 Instruction Type:Patient Education Patient Instructions Indication:Nonsmoker Start:02-Mar-2019 Instruction Type:Provider Instructions for Treatment Patient Instructions Indication:Upper respiratory infection, viral Start:18-Oct-2018 Instruction Type:Provider Instructions for Treatment How to access health informa tion online Indication:Nonsmoker Start:18-Oct-2018 Instruction Type:Patient Education How to access health informa tion online - Detail Indication:Nonsmoker Start:18-Oct-2018 Instruction Type:Patient Education How to access health informa tion online Indication:BMI 40.0-44.9, adult Start:05-May-2018 Instruction Type:Patient Education How to access health informa tion online - Detail Indication:BMI 40.0-44.9, adult Start:05-May-2018 Instruction Type:Patient Education Patient Instructions Indication:BMI 40.0-44.9, adult Start:05-May-2018 Instruction Type:Provider Instructions for Treatment How to access health informa tion online Indication:Nonsmoker Start:23-Feb-2018 Instruction Type:Patient Education How to access health informa tion online - Detail Indication:Nonsmoker Start:23-Feb-2018 Instruction Type:Patient Education Patient Instructions Indication:Nonsmoker Start:23-Feb-2018 Instruction Type:Provider Instructions for Treatment How to access health informa tion online Indication:BMI 40.0-44.9, adult Start:15-Feb-2018 Instruction Type:Patient Education How to access health informa tion online - Detail Indication:BMI 40.0-44.9, adult Start:15-Feb-2018 Instruction Type:Patient Education Patient Instructions Indication:Decreased range of motion of left lower extremity Start:15-Feb-2018 Instruction Type:Provider Instructions for Treatment How to access health informa tion online Indication:BMI 40.0-44.9, adult Start:14-Dec-2017 Instruction Type:Patient Education How to access health informa tion online - Detail Indication:BMI 40.0-44.9, adult Start:14-Dec-2017 Instruction Type:Patient Education Patient Instructions Indication:BMI 40.0-44.9, adult Start:14-Dec-2017 Instruction Type:Provider Instructions for Treatment How to access health informa tion online Indication:BMI 40.0-44.9, adult Start:11-Aug-2017 Instruction Type:Patient Education How to access health informa tion online - Detail Indication:BMI 40.0-44.9, adult Start:11-Aug-2017 Instruction Type:Patient Education Patient Instructions Indication:Acute asthma exacerbation (Renamed from Asthma with acute exacerbation) Start:11-Aug-2017 Instruction Type:Provider Instructions for Treatment How to access health informa tion online Indication:BMI 40.0-44.9, adult Start:10-Aug-2017 Instruction Type:Patient Education How to access health informa tion online - Detail Indication:BMI 40.0-44.9, adult Start:10-Aug-2017 Instruction Type:Patient Education Patient Instructions Indication:Acute asthma exacerbation (Renamed from Asthma with acute exacerbation) Start:10-Aug-2017 Instruction Type:Provider Instructions for Treatment How to access health informa tion online Indication:Cough Start:05-Aug-2017 Instruction Type:Patient Education How to access health informa tion online - Detail Indication:Cough Start:05-Aug-2017 Instruction Type:Patient Education Patient Instructions Indication:Cough Start:05-Aug-2017 Instruction Type:Provider Instructions for Treatment DISCONTINUED - LIPID PANEL ( 35586) Indication:SCREENING FOR HYPERLIPIDEMIA (Renamed from Encounter for screening for lipoid disorders) Start:06-May-2017 Instruction Type:Patient Education How to access health informa tion online Indication:Sinus pressure Start:06-May-2017 Instruction Type:Patient Education How to access health informa tion online - Detail Indication:Sinus pressure Start:06-May-2017 Instruction Type:Patient Education Patient Instructions Indication:Sinus pressure Start:06-May-2017 Instruction Type:Provider Instructions for Treatment How to access health informa tion online Indication:Flu-like symptoms Start:30-Mar-2017 Instruction Type:Patient Education How to access health informa tion online - Detail Indication:Flu-like symptoms Start:30-Mar-2017 Instruction Type:Patient Education Patient Instructions Indication:Flu-like symptoms Start:30-Mar-2017 Instruction Type:Provider Instructions for Treatment How to access health informa tion online Indication:Low back pain potentially associated with radiculopathy Start:02-Nov-2015 Instruction Type:Patient Education How to access health informa tion online - Detail Indication:Low back pain potentially associated with radiculopathy Start:02-Nov-2015 Instruction Type:Patient Education Patient Instructions Indication:Low back pain potentially associated with radiculopathy Start:02-Nov-2015 Instruction Type:Provider Instructions for Treatment How to access health informa tion online Indication:Wheezing (Renamed from Asthmatic breathing) Start:23-Jan-2014 Instruction Type:Patient Education How to access health informa tion online - Detail Indication:Wheezing (Renamed from Asthmatic breathing) Start:23-Jan-2014 Instruction Type:Patient Education Patient Instructions Indication:Wheezing (Renamed from Asthmatic breathing) Start:23-Jan-2014 Instruction Type:Provider Instructions for Treatment How to access health informa tion online Indication:Breast pain Start:12-Jan-2014 Instruction Type:Patient Education How to access health informa tion online - Detail Indication:Breast pain Start:12-Jan-2014 Instruction Type:Patient Education Patient Instructions Indication:Breast pain Start:12-Jan-2014 Instruction Type:Provider Instructions for Treatment Patient Instructions Indication:Acid reflux Start:31-Aug-2013 Instruction Type:Provider Instructions for Treatment Name Dates Details How to access health informa tion online Indication:Obesity, morbid, BMI 40.0-49.9 Start:24-Jan-2020 Instruction Type:Patient Education How to access health informa tion online - Detail Indication:Obesity, morbid, BMI 40.0-49.9 Start:24-Jan-2020 Instruction Type:Patient Education Patient Instructions Indication:Obesity, morbid, BMI 40.0-49.9 Start:24-Jan-2020 Instruction Type:Provider Instructions for Treatment How to access health informa tion online Indication:Nonsmoker Start:05-Dec-2019 Instruction Type:Patient Education How to access health informa tion online - Detail Indication:Nonsmoker Start:05-Dec-2019 Instruction Type:Patient Education Patient Instructions Indication:Nonsmoker Start:05-Dec-2019 Instruction Type:Provider Instructions for Treatment How to access health informa tion online Indication:Sore throat Start:23-Mar-2019 Instruction Type:Patient Education How to access health informa tion online - Detail Indication:Sore throat Start:23-Mar-2019 Instruction Type:Patient Education Patient Instructions Indication:Sore throat Start:23-Mar-2019 Instruction Type:Provider Instructions for Treatment How to access health informa tion online Indication:Nonsmoker Start:02-Mar-2019 Instruction Type:Patient Education How to access health informa tion online - Detail Indication:Nonsmoker Start:02-Mar-2019 Instruction Type:Patient Education Patient Instructions Indication:Nonsmoker Start:02-Mar-2019 Instruction Type:Provider Instructions for Treatment Patient Instructions Indication:Upper respiratory infection, viral Start:18-Oct-2018 Instruction Type:Provider Instructions for Treatment How to access health informa tion online Indication:Nonsmoker Start:18-Oct-2018 Instruction Type:Patient Education How to access health informa tion online - Detail Indication:Nonsmoker Start:18-Oct-2018 Instruction Type:Patient Education How to access health informa tion online Indication:BMI 40.0-44.9, adult Start:05-May-2018 Instruction Type:Patient Education How to access health informa tion online - Detail Indication:BMI 40.0-44.9, adult Start:05-May-2018 Instruction Type:Patient Education Patient Instructions Indication:BMI 40.0-44.9, adult Start:05-May-2018 Instruction Type:Provider Instructions for Treatment How to access health informa tion online Indication:Nonsmoker Start:23-Feb-2018 Instruction Type:Patient Education How to access health informa tion online - Detail Indication:Nonsmoker Start:23-Feb-2018 Instruction Type:Patient Education Patient Instructions Indication:Nonsmoker Start:23-Feb-2018 Instruction Type:Provider Instructions for Treatment How to access health informa tion online Indication:BMI 40.0-44.9, adult Start:15-Feb-2018 Instruction Type:Patient Education How to access health informa tion online - Detail Indication:BMI 40.0-44.9, adult Start:15-Feb-2018 Instruction Type:Patient Education Patient Instructions Indication:Decreased range of motion of left lower extremity Start:15-Feb-2018 Instruction Type:Provider Instructions for Treatment How to access health informa tion online Indication:BMI 40.0-44.9, adult Start:14-Dec-2017 Instruction Type:Patient Education How to access health informa tion online - Detail Indication:BMI 40.0-44.9, adult Start:14-Dec-2017 Instruction Type:Patient Education Patient Instructions Indication:BMI 40.0-44.9, adult Start:14-Dec-2017 Instruction Type:Provider Instructions for Treatment How to access health informa tion online Indication:BMI 40.0-44.9, adult Start:11-Aug-2017 Instruction Type:Patient Education How to access health informa tion online - Detail Indication:BMI 40.0-44.9, adult Start:11-Aug-2017 Instruction Type:Patient Education Patient Instructions Indication:Acute asthma exacerbation (Renamed from Asthma with acute exacerbation) Start:11-Aug-2017 Instruction Type:Provider Instructions for Treatment How to access health informa tion online Indication:BMI 40.0-44.9, adult Start:10-Aug-2017 Instruction Type:Patient Education How to access health informa tion online - Detail Indication:BMI 40.0-44.9, adult Start:10-Aug-2017 Instruction Type:Patient Education Patient Instructions Indication:Acute asthma exacerbation (Renamed from Asthma with acute exacerbation) Start:10-Aug-2017 Instruction Type:Provider Instructions for Treatment How to access health informa tion online Indication:Cough Start:05-Aug-2017 Instruction Type:Patient Education How to access health informa tion online - Detail Indication:Cough Start:05-Aug-2017 Instruction Type:Patient Education Patient Instructions Indication:Cough Start:05-Aug-2017 Instruction Type:Provider Instructions for Treatment DISCONTINUED - LIPID PANEL ( [id number]) Indication:SCREENING FOR HYPERLIPIDEMIA (Renamed from Encounter for screening for lipoid disorders) Start:06-May-2017 Instruction Type:Patient Education How to access health informa tion online Indication:Sinus pressure Start:06-May-2017 Instruction Type:Patient Education How to access health informa tion online - Detail Indication:Sinus pressure Start:06-May-2017 Instruction Type:Patient Education Patient Instructions Indication:Sinus pressure Start:06-May-2017 Instruction Type:Provider Instructions for Treatment How to access health informa tion online Indication:Flu-like symptoms Start:30-Mar-2017 Instruction Type:Patient Education How to access health informa tion online - Detail Indication:Flu-like symptoms Start:30-Mar-2017 Instruction Type:Patient Education Patient Instructions Indication:Flu-like symptoms Start:30-Mar-2017 Instruction Type:Provider Instructions for Treatment How to access health informa tion online Indication:Low back pain potentially associated with radiculopathy Start:02-Nov-2015 Instruction Type:Patient Education How to access health informa tion online - Detail Indication:Low back pain potentially associated with radiculopathy Start:02-Nov-2015 Instruction Type:Patient Education Patient Instructions Indication:Low back pain potentially associated with radiculopathy Start:02-Nov-2015 Instruction Type:Provider Instructions for Treatment How to access health informa tion online Indication:Wheezing (Renamed from Asthmatic breathing) Start:23-Jan-2014 Instruction Type:Patient Education How to access health informa tion online - Detail Indication:Wheezing (Renamed from Asthmatic breathing) Start:23-Jan-2014 Instruction Type:Patient Education Patient Instructions Indication:Wheezing (Renamed from Asthmatic breathing) Start:23-Jan-2014 Instruction Type:Provider Instructions for Treatment How to access health informa tion online Indication:Breast pain Start:12-Jan-2014 Instruction Type:Patient Education How to access health informa tion online - Detail Indication:Breast pain Start:12-Jan-2014 Instruction Type:Patient Education Patient Instructions Indication:Breast pain Start:12-Jan-2014 Instruction Type:Provider Instructions for Treatment Patient Instructions Indication:Acid reflux Start:31-Aug-2013 Instruction Type:Provider Instructions for Treatment Name Dates Details How to access health informa tion online Indication:Obesity, morbid, BMI 40.0-49.9 Start:24-Jan-2020 Instruction Type:Patient Education How to access health informa tion online - Detail Indication:Obesity, morbid, BMI 40.0-49.9 Start:24-Jan-2020 Instruction Type:Patient Education Patient Instructions Indication:Obesity, morbid, BMI 40.0-49.9 Start:24-Jan-2020 Instruction Type:Provider Instructions for Treatment How to access health informa tion online Indication:Nonsmoker Start:05-Dec-2019 Instruction Type:Patient Education How to access health informa tion online - Detail Indication:Nonsmoker Start:05-Dec-2019 Instruction Type:Patient Education Patient Instructions Indication:Nonsmoker Start:05-Dec-2019 Instruction Type:Provider Instructions for Treatment How to access health informa tion online Indication:Sore throat Start:23-Mar-2019 Instruction Type:Patient Education How to access health informa tion online - Detail Indication:Sore throat Start:23-Mar-2019 Instruction Type:Patient Education Patient Instructions Indication:Sore throat Start:23-Mar-2019 Instruction Type:Provider Instructions for Treatment How to access health informa tion online Indication:Nonsmoker Start:02-Mar-2019 Instruction Type:Patient Education How to access health informa tion online - Detail Indication:Nonsmoker Start:02-Mar-2019 Instruction Type:Patient Education Patient Instructions Indication:Nonsmoker Start:02-Mar-2019 Instruction Type:Provider Instructions for Treatment Patient Instructions Indication:Upper respiratory infection, viral Start:18-Oct-2018 Instruction Type:Provider Instructions for Treatment How to access health informa tion online Indication:Nonsmoker Start:18-Oct-2018 Instruction Type:Patient Education How to access health informa tion online - Detail Indication:Nonsmoker Start:18-Oct-2018 Instruction Type:Patient Education How to access health informa tion online Indication:BMI 40.0-44.9, adult Start:05-May-2018 Instruction Type:Patient Education How to access health informa tion online - Detail Indication:BMI 40.0-44.9, adult Start:05-May-2018 Instruction Type:Patient Education Patient Instructions Indication:BMI 40.0-44.9, adult Start:05-May-2018 Instruction Type:Provider Instructions for Treatment How to access health informa tion online Indication:Nonsmoker Start:23-Feb-2018 Instruction Type:Patient Education How to access health informa tion online - Detail Indication:Nonsmoker Start:23-Feb-2018 Instruction Type:Patient Education Patient Instructions Indication:Nonsmoker Start:23-Feb-2018 Instruction Type:Provider Instructions for Treatment How to access health informa tion online Indication:BMI 40.0-44.9, adult Start:15-Feb-2018 Instruction Type:Patient Education How to access health informa tion online - Detail Indication:BMI 40.0-44.9, adult Start:15-Feb-2018 Instruction Type:Patient Education Patient Instructions Indication:Decreased range of motion of left lower extremity Start:15-Feb-2018 Instruction Type:Provider Instructions for Treatment How to access health informa tion online Indication:BMI 40.0-44.9, adult Start:14-Dec-2017 Instruction Type:Patient Education How to access health informa tion online - Detail Indication:BMI 40.0-44.9, adult Start:14-Dec-2017 Instruction Type:Patient Education Patient Instructions Indication:BMI 40.0-44.9, adult Start:14-Dec-2017 Instruction Type:Provider Instructions for Treatment How to access health informa tion online Indication:BMI 40.0-44.9, adult Start:11-Aug-2017 Instruction Type:Patient Education How to access health informa tion online - Detail Indication:BMI 40.0-44.9, adult Start:11-Aug-2017 Instruction Type:Patient Education Patient Instructions Indication:Acute asthma exacerbation (Renamed from Asthma with acute exacerbation) Start:11-Aug-2017 Instruction Type:Provider Instructions for Treatment How to access health informa tion online Indication:BMI 40.0-44.9, adult Start:10-Aug-2017 Instruction Type:Patient Education How to access health informa tion online - Detail Indication:BMI 40.0-44.9, adult Start:10-Aug-2017 Instruction Type:Patient Education Patient Instructions Indication:Acute asthma exacerbation (Renamed from Asthma with acute exacerbation) Start:10-Aug-2017 Instruction Type:Provider Instructions for Treatment How to access health informa tion online Indication:Cough Start:05-Aug-2017 Instruction Type:Patient Education How to access health informa tion online - Detail Indication:Cough Start:05-Aug-2017 Instruction Type:Patient Education Patient Instructions Indication:Cough Start:05-Aug-2017 Instruction Type:Provider Instructions for Treatment DISCONTINUED - LIPID PANEL ( [id number]) Indication:SCREENING FOR HYPERLIPIDEMIA (Renamed from Encounter for screening for lipoid disorders) Start:06-May-2017 Instruction Type:Patient Education How to access health informa tion online Indication:Sinus pressure Start:06-May-2017 Instruction Type:Patient Education How to access health informa tion online - Detail Indication:Sinus pressure Start:06-May-2017 Instruction Type:Patient Education Patient Instructions Indication:Sinus pressure Start:06-May-2017 Instruction Type:Provider Instructions for Treatment How to access health informa tion online Indication:Flu-like symptoms Start:30-Mar-2017 Instruction Type:Patient Education How to access health informa tion online - Detail Indication:Flu-like symptoms Start:30-Mar-2017 Instruction Type:Patient Education Patient Instructions Indication:Flu-like symptoms Start:30-Mar-2017 Instruction Type:Provider Instructions for Treatment How to access health informa tion online Indication:Low back pain potentially associated with radiculopathy Start:02-Nov-2015 Instruction Type:Patient Education How to access health informa tion online - Detail Indication:Low back pain potentially associated with radiculopathy Start:02-Nov-2015 Instruction Type:Patient Education Patient Instructions Indication:Low back pain potentially associated with radiculopathy Start:02-Nov-2015 Instruction Type:Provider Instructions for Treatment How to access health informa tion online Indication:Wheezing (Renamed from Asthmatic breathing) Start:23-Jan-2014 Instruction Type:Patient Education How to access health informa tion online - Detail Indication:Wheezing (Renamed from Asthmatic breathing) Start:23-Jan-2014 Instruction Type:Patient Education Patient Instructions Indication:Wheezing (Renamed from Asthmatic breathing) Start:23-Jan-2014 Instruction Type:Provider Instructions for Treatment How to access health informa tion online Indication:Breast pain Start:12-Jan-2014 Instruction Type:Patient Education How to access health informa tion online - Detail Indication:Breast pain Start:12-Jan-2014 Instruction Type:Patient Education Patient Instructions Indication:Breast pain Start:12-Jan-2014 Instruction Type:Provider Instructions for Treatment Patient Instructions Indication:Acid reflux Start:31-Aug-2013 Instruction Type:Provider Instructions for Treatment Name Dates Details How to access health informa tion online Indication:Obesity, morbid, BMI 40.0-49.9 Start:24-Jan-2020 Instruction Type:Patient Education How to access health informa tion online - Detail Indication:Obesity, morbid, BMI 40.0-49.9 Start:24-Jan-2020 Instruction Type:Patient Education Patient Instructions Indication:Obesity, morbid, BMI 40.0-49.9 Start:24-Jan-2020 Instruction Type:Provider Instructions for Treatment How to access health informa tion online Indication:Nonsmoker Start:05-Dec-2019 Instruction Type:Patient Education How to access health informa tion online - Detail Indication:Nonsmoker Start:05-Dec-2019 Instruction Type:Patient Education Patient Instructions Indication:Nonsmoker Start:05-Dec-2019 Instruction Type:Provider Instructions for Treatment How to access health informa tion online Indication:Sore throat Start:23-Mar-2019 Instruction Type:Patient Education How to access health informa tion online - Detail Indication:Sore throat Start:23-Mar-2019 Instruction Type:Patient Education Patient Instructions Indication:Sore throat Start:23-Mar-2019 Instruction Type:Provider Instructions for Treatment How to access health informa tion online Indication:Nonsmoker Start:02-Mar-2019 Instruction Type:Patient Education How to access health informa tion online - Detail Indication:Nonsmoker Start:02-Mar-2019 Instruction Type:Patient Education Patient Instructions Indication:Nonsmoker Start:02-Mar-2019 Instruction Type:Provider Instructions for Treatment Patient Instructions Indication:Upper respiratory infection, viral Start:18-Oct-2018 Instruction Type:Provider Instructions for Treatment How to access health informa tion online Indication:Nonsmoker Start:18-Oct-2018 Instruction Type:Patient Education How to access health informa tion online - Detail Indication:Nonsmoker Start:18-Oct-2018 Instruction Type:Patient Education How to access health informa tion online Indication:BMI 40.0-44.9, adult Start:05-May-2018 Instruction Type:Patient Education How to access health informa tion online - Detail Indication:BMI 40.0-44.9, adult Start:05-May-2018 Instruction Type:Patient Education Patient Instructions Indication:BMI 40.0-44.9, adult Start:05-May-2018 Instruction Type:Provider Instructions for Treatment How to access health informa tion online Indication:Nonsmoker Start:23-Feb-2018 Instruction Type:Patient Education How to access health informa tion online - Detail Indication:Nonsmoker Start:23-Feb-2018 Instruction Type:Patient Education Patient Instructions Indication:Nonsmoker Start:23-Feb-2018 Instruction Type:Provider Instructions for Treatment How to access health informa tion online Indication:BMI 40.0-44.9, adult Start:15-Feb-2018 Instruction Type:Patient Education How to access health informa tion online - Detail Indication:BMI 40.0-44.9, adult Start:15-Feb-2018 Instruction Type:Patient Education Patient Instructions Indication:Decreased range of motion of left lower extremity Start:15-Feb-2018 Instruction Type:Provider Instructions for Treatment How to access health informa tion online Indication:BMI 40.0-44.9, adult Start:14-Dec-2017 Instruction Type:Patient Education How to access health informa tion online - Detail Indication:BMI 40.0-44.9, adult Start:14-Dec-2017 Instruction Type:Patient Education Patient Instructions Indication:BMI 40.0-44.9, adult Start:14-Dec-2017 Instruction Type:Provider Instructions for Treatment How to access health informa tion online Indication:BMI 40.0-44.9, adult Start:11-Aug-2017 Instruction Type:Patient Education How to access health informa tion online - Detail Indication:BMI 40.0-44.9, adult Start:11-Aug-2017 Instruction Type:Patient Education Patient Instructions Indication:Acute asthma exacerbation (Renamed from Asthma with acute exacerbation) Start:11-Aug-2017 Instruction Type:Provider Instructions for Treatment How to access health informa tion online Indication:BMI 40.0-44.9, adult Start:10-Aug-2017 Instruction Type:Patient Education How to access health informa tion online - Detail Indication:BMI 40.0-44.9, adult Start:10-Aug-2017 Instruction Type:Patient Education Patient Instructions Indication:Acute asthma exacerbation (Renamed from Asthma with acute exacerbation) Start:10-Aug-2017 Instruction Type:Provider Instructions for Treatment How to access health informa tion online Indication:Cough Start:05-Aug-2017 Instruction Type:Patient Education How to access health informa tion online - Detail Indication:Cough Start:05-Aug-2017 Instruction Type:Patient Education Patient Instructions Indication:Cough Start:05-Aug-2017 Instruction Type:Provider Instructions for Treatment DISCONTINUED - LIPID PANEL ( [id number]) Indication:SCREENING FOR HYPERLIPIDEMIA (Renamed from Encounter for screening for lipoid disorders) Start:06-May-2017 Instruction Type:Patient Education How to access health informa tion online Indication:Sinus pressure Start:06-May-2017 Instruction Type:Patient Education How to access health informa tion online - Detail Indication:Sinus pressure Start:06-May-2017 Instruction Type:Patient Education Patient Instructions Indication:Sinus pressure Start:06-May-2017 Instruction Type:Provider Instructions for Treatment How to access health informa tion online Indication:Flu-like symptoms Start:30-Mar-2017 Instruction Type:Patient Education How to access health informa tion online - Detail Indication:Flu-like symptoms Start:30-Mar-2017 Instruction Type:Patient Education Patient Instructions Indication:Flu-like symptoms Start:30-Mar-2017 Instruction Type:Provider Instructions for Treatment How to access health informa tion online Indication:Low back pain potentially associated with radiculopathy Start:02-Nov-2015 Instruction Type:Patient Education How to access health informa tion online - Detail Indication:Low back pain potentially associated with radiculopathy Start:02-Nov-2015 Instruction Type:Patient Education Patient Instructions Indication:Low back pain potentially associated with radiculopathy Start:02-Nov-2015 Instruction Type:Provider Instructions for Treatment How to access health informa tion online Indication:Wheezing (Renamed from Asthmatic breathing) Start:23-Jan-2014 Instruction Type:Patient Education How to access health informa tion online - Detail Indication:Wheezing (Renamed from Asthmatic breathing) Start:23-Jan-2014 Instruction Type:Patient Education Patient Instructions Indication:Wheezing (Renamed from Asthmatic breathing) Start:23-Jan-2014 Instruction Type:Provider Instructions for Treatment How to access health informa tion online Indication:Breast pain Start:12-Jan-2014 Instruction Type:Patient Education How to access health informa tion online - Detail Indication:Breast pain Start:12-Jan-2014 Instruction Type:Patient Education Patient Instructions Indication:Breast pain Start:12-Jan-2014 Instruction Type:Provider Instructions for Treatment Patient Instructions Indication:Acid reflux Start:31-Aug-2013 Instruction Type:Provider Instructions for Treatment Name Dates Details How to access health informa tion online Indication:Obesity, morbid, BMI 40.0-49.9 Start:24-Jan-2020 Instruction Type:Patient Education How to access health informa tion online - Detail Indication:Obesity, morbid, BMI 40.0-49.9 Start:24-Jan-2020 Instruction Type:Patient Education Patient Instructions Indication:Obesity, morbid, BMI 40.0-49.9 Start:24-Jan-2020 Instruction Type:Provider Instructions for Treatment How to access health informa tion online Indication:Nonsmoker Start:05-Dec-2019 Instruction Type:Patient Education How to access health informa tion online - Detail Indication:Nonsmoker Start:05-Dec-2019 Instruction Type:Patient Education Patient Instructions Indication:Nonsmoker Start:05-Dec-2019 Instruction Type:Provider Instructions for Treatment How to access health informa tion online Indication:Sore throat Start:23-Mar-2019 Instruction Type:Patient Education How to access health informa tion online - Detail Indication:Sore throat Start:23-Mar-2019 Instruction Type:Patient Education Patient Instructions Indication:Sore throat Start:23-Mar-2019 Instruction Type:Provider Instructions for Treatment How to access health informa tion online Indication:Nonsmoker Start:02-Mar-2019 Instruction Type:Patient Education How to access health informa tion online - Detail Indication:Nonsmoker Start:02-Mar-2019 Instruction Type:Patient Education Patient Instructions Indication:Nonsmoker Start:02-Mar-2019 Instruction Type:Provider Instructions for Treatment Patient Instructions Indication:Upper respiratory infection, viral Start:18-Oct-2018 Instruction Type:Provider Instructions for Treatment How to access health informa tion online Indication:Nonsmoker Start:18-Oct-2018 Instruction Type:Patient Education How to access health informa tion online - Detail Indication:Nonsmoker Start:18-Oct-2018 Instruction Type:Patient Education How to access health informa tion online Indication:BMI 40.0-44.9, adult Start:05-May-2018 Instruction Type:Patient Education How to access health informa tion online - Detail Indication:BMI 40.0-44.9, adult Start:05-May-2018 Instruction Type:Patient Education Patient Instructions Indication:BMI 40.0-44.9, adult Start:05-May-2018 Instruction Type:Provider Instructions for Treatment How to access health informa tion online Indication:Nonsmoker Start:23-Feb-2018 Instruction Type:Patient Education How to access health informa tion online - Detail Indication:Nonsmoker Start:23-Feb-2018 Instruction Type:Patient Education Patient Instructions Indication:Nonsmoker Start:23-Feb-2018 Instruction Type:Provider Instructions for Treatment How to access health informa tion online Indication:BMI 40.0-44.9, adult Start:15-Feb-2018 Instruction Type:Patient Education How to access health informa tion online - Detail Indication:BMI 40.0-44.9, adult Start:15-Feb-2018 Instruction Type:Patient Education Patient Instructions Indication:Decreased range of motion of left lower extremity Start:15-Feb-2018 Instruction Type:Provider Instructions for Treatment How to access health informa tion online Indication:BMI 40.0-44.9, adult Start:14-Dec-2017 Instruction Type:Patient Education How to access health informa tion online - Detail Indication:BMI 40.0-44.9, adult Start:14-Dec-2017 Instruction Type:Patient Education Patient Instructions Indication:BMI 40.0-44.9, adult Start:14-Dec-2017 Instruction Type:Provider Instructions for Treatment How to access health informa tion online Indication:BMI 40.0-44.9, adult Start:11-Aug-2017 Instruction Type:Patient Education How to access health informa tion online - Detail Indication:BMI 40.0-44.9, adult Start:11-Aug-2017 Instruction Type:Patient Education Patient Instructions Indication:Acute asthma exacerbation (Renamed from Asthma with acute exacerbation) Start:11-Aug-2017 Instruction Type:Provider Instructions for Treatment How to access health informa tion online Indication:BMI 40.0-44.9, adult Start:10-Aug-2017 Instruction Type:Patient Education How to access health informa tion online - Detail Indication:BMI 40.0-44.9, adult Start:10-Aug-2017 Instruction Type:Patient Education Patient Instructions Indication:Acute asthma exacerbation (Renamed from Asthma with acute exacerbation) Start:10-Aug-2017 Instruction Type:Provider Instructions for Treatment How to access health informa tion online Indication:Cough Start:05-Aug-2017 Instruction Type:Patient Education How to access health informa tion online - Detail Indication:Cough Start:05-Aug-2017 Instruction Type:Patient Education Patient Instructions Indication:Cough Start:05-Aug-2017 Instruction Type:Provider Instructions for Treatment DISCONTINUED - LIPID PANEL ( [id number]) Indication:SCREENING FOR HYPERLIPIDEMIA (Renamed from Encounter for screening for lipoid disorders) Start:06-May-2017 Instruction Type:Patient Education How to access health informa tion online Indication:Sinus pressure Start:06-May-2017 Instruction Type:Patient Education How to access health informa tion online - Detail Indication:Sinus pressure Start:06-May-2017 Instruction Type:Patient Education Patient Instructions Indication:Sinus pressure Start:06-May-2017 Instruction Type:Provider Instructions for Treatment How to access health informa tion online Indication:Flu-like symptoms Start:30-Mar-2017 Instruction Type:Patient Education How to access health informa tion online - Detail Indication:Flu-like symptoms Start:30-Mar-2017 Instruction Type:Patient Education Patient Instructions Indication:Flu-like symptoms Start:30-Mar-2017 Instruction Type:Provider Instructions for Treatment How to access health informa tion online Indication:Low back pain potentially associated with radiculopathy Start:02-Nov-2015 Instruction Type:Patient Education How to access health informa tion online - Detail Indication:Low back pain potentially associated with radiculopathy Start:02-Nov-2015 Instruction Type:Patient Education Patient Instructions Indication:Low back pain potentially associated with radiculopathy Start:02-Nov-2015 Instruction Type:Provider Instructions for Treatment How to access health informa tion online Indication:Wheezing (Renamed from Asthmatic breathing) Start:23-Jan-2014 Instruction Type:Patient Education How to access health informa tion online - Detail Indication:Wheezing (Renamed from Asthmatic breathing) Start:23-Jan-2014 Instruction Type:Patient Education Patient Instructions Indication:Wheezing (Renamed from Asthmatic breathing) Start:23-Jan-2014 Instruction Type:Provider Instructions for Treatment How to access health informa tion online Indication:Breast pain Start:12-Jan-2014 Instruction Type:Patient Education How to access health informa tion online - Detail Indication:Breast pain Start:12-Jan-2014 Instruction Type:Patient Education Patient Instructions Indication:Breast pain Start:12-Jan-2014 Instruction Type:Provider Instructions for Treatment Patient Instructions Indication:Acid reflux Start:31-Aug-2013 Instruction Type:Provider Instructions for Treatment Name Dates Details How to access health informa tion online Indication:BMI 40.0-44.9, adult Start:16-Mar-2020 Instruction Type:Patient Education How to access health informa tion online - Detail Indication:BMI 40.0-44.9, adult Start:16-Mar-2020 Instruction Type:Patient Education Patient Instructions Indication:BMI 40.0-44.9, adult Start:16-Mar-2020 Instruction Type:Provider Instructions for Treatment How to access health informa tion online Indication:Obesity, morbid, BMI 40.0-49.9 Start:24-Jan-2020 Instruction Type:Patient Education How to access health informa tion online - Detail Indication:Obesity, morbid, BMI 40.0-49.9 Start:24-Jan-2020 Instruction Type:Patient Education Patient Instructions Indication:Obesity, morbid, BMI 40.0-49.9 Start:24-Jan-2020 Instruction Type:Provider Instructions for Treatment How to access health informa tion online Indication:Nonsmoker Start:05-Dec-2019 Instruction Type:Patient Education How to access health informa tion online - Detail Indication:Nonsmoker Start:05-Dec-2019 Instruction Type:Patient Education Patient Instructions Indication:Nonsmoker Start:05-Dec-2019 Instruction Type:Provider Instructions for Treatment How to access health informa tion online Indication:Sore throat Start:23-Mar-2019 Instruction Type:Patient Education How to access health informa tion online - Detail Indication:Sore throat Start:23-Mar-2019 Instruction Type:Patient Education Patient Instructions Indication:Sore throat Start:23-Mar-2019 Instruction Type:Provider Instructions for Treatment How to access health informa tion online Indication:Nonsmoker Start:02-Mar-2019 Instruction Type:Patient Education How to access health informa tion online - Detail Indication:Nonsmoker Start:02-Mar-2019 Instruction Type:Patient Education Patient Instructions Indication:Nonsmoker Start:02-Mar-2019 Instruction Type:Provider Instructions for Treatment Patient Instructions Indication:Upper respiratory infection, viral Start:18-Oct-2018 Instruction Type:Provider Instructions for Treatment How to access health informa tion online Indication:Nonsmoker Start:18-Oct-2018 Instruction Type:Patient Education How to access health informa tion online - Detail Indication:Nonsmoker Start:18-Oct-2018 Instruction Type:Patient Education How to access health informa tion online Indication:BMI 40.0-44.9, adult Start:05-May-2018 Instruction Type:Patient Education How to access health informa tion online - Detail Indication:BMI 40.0-44.9, adult Start:05-May-2018 Instruction Type:Patient Education Patient Instructions Indication:BMI 40.0-44.9, adult Start:05-May-2018 Instruction Type:Provider Instructions for Treatment How to access health informa tion online Indication:Nonsmoker Start:23-Feb-2018 Instruction Type:Patient Education How to access health informa tion online - Detail Indication:Nonsmoker Start:23-Feb-2018 Instruction Type:Patient Education Patient Instructions Indication:Nonsmoker Start:23-Feb-2018 Instruction Type:Provider Instructions for Treatment How to access health informa tion online Indication:BMI 40.0-44.9, adult Start:15-Feb-2018 Instruction Type:Patient Education How to access health informa tion online - Detail Indication:BMI 40.0-44.9, adult Start:15-Feb-2018 Instruction Type:Patient Education Patient Instructions Indication:Decreased range of motion of left lower extremity Start:15-Feb-2018 Instruction Type:Provider Instructions for Treatment How to access health informa tion online Indication:BMI 40.0-44.9, adult Start:14-Dec-2017 Instruction Type:Patient Education How to access health informa tion online - Detail Indication:BMI 40.0-44.9, adult Start:14-Dec-2017 Instruction Type:Patient Education Patient Instructions Indication:BMI 40.0-44.9, adult Start:14-Dec-2017 Instruction Type:Provider Instructions for Treatment How to access health informa tion online Indication:BMI 40.0-44.9, adult Start:11-Aug-2017 Instruction Type:Patient Education How to access health informa tion online - Detail Indication:BMI 40.0-44.9, adult Start:11-Aug-2017 Instruction Type:Patient Education Patient Instructions Indication:Acute asthma exacerbation (Renamed from Asthma with acute exacerbation) Start:11-Aug-2017 Instruction Type:Provider Instructions for Treatment How to access health informa tion online Indication:BMI 40.0-44.9, adult Start:10-Aug-2017 Instruction Type:Patient Education How to access health informa tion online - Detail Indication:BMI 40.0-44.9, adult Start:10-Aug-2017 Instruction Type:Patient Education Patient Instructions Indication:Acute asthma exacerbation (Renamed from Asthma with acute exacerbation) Start:10-Aug-2017 Instruction Type:Provider Instructions for Treatment How to access health informa tion online Indication:Cough Start:05-Aug-2017 Instruction Type:Patient Education How to access health informa tion online - Detail Indication:Cough Start:05-Aug-2017 Instruction Type:Patient Education Patient Instructions Indication:Cough Start:05-Aug-2017 Instruction Type:Provider Instructions for Treatment DISCONTINUED - LIPID PANEL ( 93049) Indication:SCREENING FOR HYPERLIPIDEMIA (Renamed from Encounter for screening for lipoid disorders) Start:06-May-2017 Instruction Type:Patient Education How to access health informa tion online Indication:Sinus pressure Start:06-May-2017 Instruction Type:Patient Education How to access health informa tion online - Detail Indication:Sinus pressure Start:06-May-2017 Instruction Type:Patient Education Patient Instructions Indication:Sinus pressure Start:06-May-2017 Instruction Type:Provider Instructions for Treatment How to access health informa tion online Indication:Flu-like symptoms Start:30-Mar-2017 Instruction Type:Patient Education How to access health informa tion online - Detail Indication:Flu-like symptoms Start:30-Mar-2017 Instruction Type:Patient Education Patient Instructions Indication:Flu-like symptoms Start:30-Mar-2017 Instruction Type:Provider Instructions for Treatment How to access health informa tion online Indication:Low back pain potentially associated with radiculopathy Start:02-Nov-2015 Instruction Type:Patient Education How to access health informa tion online - Detail Indication:Low back pain potentially associated with radiculopathy Start:02-Nov-2015 Instruction Type:Patient Education Patient Instructions Indication:Low back pain potentially associated with radiculopathy Start:02-Nov-2015 Instruction Type:Provider Instructions for Treatment How to access health informa tion online Indication:Wheezing (Renamed from Asthmatic breathing) Start:23-Jan-2014 Instruction Type:Patient Education How to access health informa tion online - Detail Indication:Wheezing (Renamed from Asthmatic breathing) Start:23-Jan-2014 Instruction Type:Patient Education Patient Instructions Indication:Wheezing (Renamed from Asthmatic breathing) Start:23-Jan-2014 Instruction Type:Provider Instructions for Treatment How to access health informa tion online Indication:Breast pain Start:12-Jan-2014 Instruction Type:Patient Education How to access health informa tion online - Detail Indication:Breast pain Start:12-Jan-2014 Instruction Type:Patient Education Patient Instructions Indication:Breast pain Start:12-Jan-2014 Instruction Type:Provider Instructions for Treatment Patient Instructions Indication:Acid reflux Start:31-Aug-2013 Instruction Type:Provider Instructions for Treatment Name Dates Details How to access health informa tion online Indication:BMI 40.0-44.9, adult Start:16-Mar-2020 Instruction Type:Patient Education How to access health informa tion online - Detail Indication:BMI 40.0-44.9, adult Start:16-Mar-2020 Instruction Type:Patient Education Patient Instructions Indication:BMI 40.0-44.9, adult Start:16-Mar-2020 Instruction Type:Provider Instructions for Treatment How to access health informa tion online Indication:Obesity, morbid, BMI 40.0-49.9 Start:24-Jan-2020 Instruction Type:Patient Education How to access health informa tion online - Detail Indication:Obesity, morbid, BMI 40.0-49.9 Start:24-Jan-2020 Instruction Type:Patient Education Patient Instructions Indication:Obesity, morbid, BMI 40.0-49.9 Start:24-Jan-2020 Instruction Type:Provider Instructions for Treatment How to access health informa tion online Indication:Nonsmoker Start:05-Dec-2019 Instruction Type:Patient Education How to access health informa tion online - Detail Indication:Nonsmoker Start:05-Dec-2019 Instruction Type:Patient Education Patient Instructions Indication:Nonsmoker Start:05-Dec-2019 Instruction Type:Provider Instructions for Treatment How to access health informa tion online Indication:Sore throat Start:23-Mar-2019 Instruction Type:Patient Education How to access health informa tion online - Detail Indication:Sore throat Start:23-Mar-2019 Instruction Type:Patient Education Patient Instructions Indication:Sore throat Start:23-Mar-2019 Instruction Type:Provider Instructions for Treatment How to access health informa tion online Indication:Nonsmoker Start:02-Mar-2019 Instruction Type:Patient Education How to access health informa tion online - Detail Indication:Nonsmoker Start:02-Mar-2019 Instruction Type:Patient Education Patient Instructions Indication:Nonsmoker Start:02-Mar-2019 Instruction Type:Provider Instructions for Treatment Patient Instructions Indication:Upper respiratory infection, viral Start:18-Oct-2018 Instruction Type:Provider Instructions for Treatment How to access health informa tion online Indication:Nonsmoker Start:18-Oct-2018 Instruction Type:Patient Education How to access health informa tion online - Detail Indication:Nonsmoker Start:18-Oct-2018 Instruction Type:Patient Education How to access health informa tion online Indication:BMI 40.0-44.9, adult Start:05-May-2018 Instruction Type:Patient Education How to access health informa tion online - Detail Indication:BMI 40.0-44.9, adult Start:05-May-2018 Instruction Type:Patient Education Patient Instructions Indication:BMI 40.0-44.9, adult Start:05-May-2018 Instruction Type:Provider Instructions for Treatment How to access health informa tion online Indication:Nonsmoker Start:23-Feb-2018 Instruction Type:Patient Education How to access health informa tion online - Detail Indication:Nonsmoker Start:23-Feb-2018 Instruction Type:Patient Education Patient Instructions Indication:Nonsmoker Start:23-Feb-2018 Instruction Type:Provider Instructions for Treatment How to access health informa tion online Indication:BMI 40.0-44.9, adult Start:15-Feb-2018 Instruction Type:Patient Education How to access health informa tion online - Detail Indication:BMI 40.0-44.9, adult Start:15-Feb-2018 Instruction Type:Patient Education Patient Instructions Indication:Decreased range of motion of left lower extremity Start:15-Feb-2018 Instruction Type:Provider Instructions for Treatment How to access health informa tion online Indication:BMI 40.0-44.9, adult Start:14-Dec-2017 Instruction Type:Patient Education How to access health informa tion online - Detail Indication:BMI 40.0-44.9, adult Start:14-Dec-2017 Instruction Type:Patient Education Patient Instructions Indication:BMI 40.0-44.9, adult Start:14-Dec-2017 Instruction Type:Provider Instructions for Treatment How to access health informa tion online Indication:BMI 40.0-44.9, adult Start:11-Aug-2017 Instruction Type:Patient Education How to access health informa tion online - Detail Indication:BMI 40.0-44.9, adult Start:11-Aug-2017 Instruction Type:Patient Education Patient Instructions Indication:Acute asthma exacerbation (Renamed from Asthma with acute exacerbation) Start:11-Aug-2017 Instruction Type:Provider Instructions for Treatment How to access health informa tion online Indication:BMI 40.0-44.9, adult Start:10-Aug-2017 Instruction Type:Patient Education How to access health informa tion online - Detail Indication:BMI 40.0-44.9, adult Start:10-Aug-2017 Instruction Type:Patient Education Patient Instructions Indication:Acute asthma exacerbation (Renamed from Asthma with acute exacerbation) Start:10-Aug-2017 Instruction Type:Provider Instructions for Treatment How to access health informa tion online Indication:Cough Start:05-Aug-2017 Instruction Type:Patient Education How to access health informa tion online - Detail Indication:Cough Start:05-Aug-2017 Instruction Type:Patient Education Patient Instructions Indication:Cough Start:05-Aug-2017 Instruction Type:Provider Instructions for Treatment DISCONTINUED - LIPID PANEL ( 07249) Indication:SCREENING FOR HYPERLIPIDEMIA (Renamed from Encounter for screening for lipoid disorders) Start:06-May-2017 Instruction Type:Patient Education How to access health informa tion online Indication:Sinus pressure Start:06-May-2017 Instruction Type:Patient Education How to access health informa tion online - Detail Indication:Sinus pressure Start:06-May-2017 Instruction Type:Patient Education Patient Instructions Indication:Sinus pressure Start:06-May-2017 Instruction Type:Provider Instructions for Treatment How to access health informa tion online Indication:Flu-like symptoms Start:30-Mar-2017 Instruction Type:Patient Education How to access health informa tion online - Detail Indication:Flu-like symptoms Start:30-Mar-2017 Instruction Type:Patient Education Patient Instructions Indication:Flu-like symptoms Start:30-Mar-2017 Instruction Type:Provider Instructions for Treatment How to access health informa tion online Indication:Low back pain potentially associated with radiculopathy Start:02-Nov-2015 Instruction Type:Patient Education How to access health informa tion online - Detail Indication:Low back pain potentially associated with radiculopathy Start:02-Nov-2015 Instruction Type:Patient Education Patient Instructions Indication:Low back pain potentially associated with radiculopathy Start:02-Nov-2015 Instruction Type:Provider Instructions for Treatment How to access health informa tion online Indication:Wheezing (Renamed from Asthmatic breathing) Start:23-Jan-2014 Instruction Type:Patient Education How to access health informa tion online - Detail Indication:Wheezing (Renamed from Asthmatic breathing) Start:23-Jan-2014 Instruction Type:Patient Education Patient Instructions Indication:Wheezing (Renamed from Asthmatic breathing) Start:23-Jan-2014 Instruction Type:Provider Instructions for Treatment How to access health informa tion online Indication:Breast pain Start:12-Jan-2014 Instruction Type:Patient Education How to access health informa tion online - Detail Indication:Breast pain Start:12-Jan-2014 Instruction Type:Patient Education Patient Instructions Indication:Breast pain Start:12-Jan-2014 Instruction Type:Provider Instructions for Treatment Patient Instructions Indication:Acid reflux Start:31-Aug-2013 Instruction Type:Provider Instructions for Treatment Name Dates Details How to access health informa tion online Indication:BMI 40.0-44.9, adult Start:16-Mar-2020 Instruction Type:Patient Education How to access health informa tion online - Detail Indication:BMI 40.0-44.9, adult Start:16-Mar-2020 Instruction Type:Patient Education Patient Instructions Indication:BMI 40.0-44.9, adult Start:16-Mar-2020 Instruction Type:Provider Instructions for Treatment How to access health informa tion online Indication:Obesity, morbid, BMI 40.0-49.9 Start:24-Jan-2020 Instruction Type:Patient Education How to access health informa tion online - Detail Indication:Obesity, morbid, BMI 40.0-49.9 Start:24-Jan-2020 Instruction Type:Patient Education Patient Instructions Indication:Obesity, morbid, BMI 40.0-49.9 Start:24-Jan-2020 Instruction Type:Provider Instructions for Treatment How to access health informa tion online Indication:Nonsmoker Start:05-Dec-2019 Instruction Type:Patient Education How to access health informa tion online - Detail Indication:Nonsmoker Start:05-Dec-2019 Instruction Type:Patient Education Patient Instructions Indication:Nonsmoker Start:05-Dec-2019 Instruction Type:Provider Instructions for Treatment How to access health informa tion online Indication:Sore throat Start:23-Mar-2019 Instruction Type:Patient Education How to access health informa tion online - Detail Indication:Sore throat Start:23-Mar-2019 Instruction Type:Patient Education Patient Instructions Indication:Sore throat Start:23-Mar-2019 Instruction Type:Provider Instructions for Treatment How to access health informa tion online Indication:Nonsmoker Start:02-Mar-2019 Instruction Type:Patient Education How to access health informa tion online - Detail Indication:Nonsmoker Start:02-Mar-2019 Instruction Type:Patient Education Patient Instructions Indication:Nonsmoker Start:02-Mar-2019 Instruction Type:Provider Instructions for Treatment Patient Instructions Indication:Upper respiratory infection, viral Start:18-Oct-2018 Instruction Type:Provider Instructions for Treatment How to access health informa tion online Indication:Nonsmoker Start:18-Oct-2018 Instruction Type:Patient Education How to access health informa tion online - Detail Indication:Nonsmoker Start:18-Oct-2018 Instruction Type:Patient Education How to access health informa tion online Indication:BMI 40.0-44.9, adult Start:05-May-2018 Instruction Type:Patient Education How to access health informa tion online - Detail Indication:BMI 40.0-44.9, adult Start:05-May-2018 Instruction Type:Patient Education Patient Instructions Indication:BMI 40.0-44.9, adult Start:05-May-2018 Instruction Type:Provider Instructions for Treatment How to access health informa tion online Indication:Nonsmoker Start:23-Feb-2018 Instruction Type:Patient Education How to access health informa tion online - Detail Indication:Nonsmoker Start:23-Feb-2018 Instruction Type:Patient Education Patient Instructions Indication:Nonsmoker Start:23-Feb-2018 Instruction Type:Provider Instructions for Treatment How to access health informa tion online Indication:BMI 40.0-44.9, adult Start:15-Feb-2018 Instruction Type:Patient Education How to access health informa tion online - Detail Indication:BMI 40.0-44.9, adult Start:15-Feb-2018 Instruction Type:Patient Education Patient Instructions Indication:Decreased range of motion of left lower extremity Start:15-Feb-2018 Instruction Type:Provider Instructions for Treatment How to access health informa tion online Indication:BMI 40.0-44.9, adult Start:14-Dec-2017 Instruction Type:Patient Education How to access health informa tion online - Detail Indication:BMI 40.0-44.9, adult Start:14-Dec-2017 Instruction Type:Patient Education Patient Instructions Indication:BMI 40.0-44.9, adult Start:14-Dec-2017 Instruction Type:Provider Instructions for Treatment How to access health informa tion online Indication:BMI 40.0-44.9, adult Start:11-Aug-2017 Instruction Type:Patient Education How to access health informa tion online - Detail Indication:BMI 40.0-44.9, adult Start:11-Aug-2017 Instruction Type:Patient Education Patient Instructions Indication:Acute asthma exacerbation (Renamed from Asthma with acute exacerbation) Start:11-Aug-2017 Instruction Type:Provider Instructions for Treatment How to access health informa tion online Indication:BMI 40.0-44.9, adult Start:10-Aug-2017 Instruction Type:Patient Education How to access health informa tion online - Detail Indication:BMI 40.0-44.9, adult Start:10-Aug-2017 Instruction Type:Patient Education Patient Instructions Indication:Acute asthma exacerbation (Renamed from Asthma with acute exacerbation) Start:10-Aug-2017 Instruction Type:Provider Instructions for Treatment How to access health informa tion online Indication:Cough Start:05-Aug-2017 Instruction Type:Patient Education How to access health informa tion online - Detail Indication:Cough Start:05-Aug-2017 Instruction Type:Patient Education Patient Instructions Indication:Cough Start:05-Aug-2017 Instruction Type:Provider Instructions for Treatment DISCONTINUED - LIPID PANEL ( 17413) Indication:SCREENING FOR HYPERLIPIDEMIA (Renamed from Encounter for screening for lipoid disorders) Start:06-May-2017 Instruction Type:Patient Education How to access health informa tion online Indication:Sinus pressure Start:06-May-2017 Instruction Type:Patient Education How to access health informa tion online - Detail Indication:Sinus pressure Start:06-May-2017 Instruction Type:Patient Education Patient Instructions Indication:Sinus pressure Start:06-May-2017 Instruction Type:Provider Instructions for Treatment How to access health informa tion online Indication:Flu-like symptoms Start:30-Mar-2017 Instruction Type:Patient Education How to access health informa tion online - Detail Indication:Flu-like symptoms Start:30-Mar-2017 Instruction Type:Patient Education Patient Instructions Indication:Flu-like symptoms Start:30-Mar-2017 Instruction Type:Provider Instructions for Treatment How to access health informa tion online Indication:Low back pain potentially associated with radiculopathy Start:02-Nov-2015 Instruction Type:Patient Education How to access health informa tion online - Detail Indication:Low back pain potentially associated with radiculopathy Start:02-Nov-2015 Instruction Type:Patient Education Patient Instructions Indication:Low back pain potentially associated with radiculopathy Start:02-Nov-2015 Instruction Type:Provider Instructions for Treatment How to access health informa tion online Indication:Wheezing (Renamed from Asthmatic breathing) Start:23-Jan-2014 Instruction Type:Patient Education How to access health informa tion online - Detail Indication:Wheezing (Renamed from Asthmatic breathing) Start:23-Jan-2014 Instruction Type:Patient Education Patient Instructions Indication:Wheezing (Renamed from Asthmatic breathing) Start:23-Jan-2014 Instruction Type:Provider Instructions for Treatment How to access health informa tion online Indication:Breast pain Start:12-Jan-2014 Instruction Type:Patient Education How to access health informa tion online - Detail Indication:Breast pain Start:12-Jan-2014 Instruction Type:Patient Education Patient Instructions Indication:Breast pain Start:12-Jan-2014 Instruction Type:Provider Instructions for Treatment Patient Instructions Indication:Acid reflux Start:31-Aug-2013 Instruction Type:Provider Instructions for Treatment Name Dates Details How to access health informa tion online Indication:BMI 40.0-44.9, adult Start:16-Mar-2020 Instruction Type:Patient Education How to access health informa tion online - Detail Indication:BMI 40.0-44.9, adult Start:16-Mar-2020 Instruction Type:Patient Education Patient Instructions Indication:BMI 40.0-44.9, adult Start:16-Mar-2020 Instruction Type:Provider Instructions for Treatment How to access health informa tion online Indication:Obesity, morbid, BMI 40.0-49.9 Start:24-Jan-2020 Instruction Type:Patient Education How to access health informa tion online - Detail Indication:Obesity, morbid, BMI 40.0-49.9 Start:24-Jan-2020 Instruction Type:Patient Education Patient Instructions Indication:Obesity, morbid, BMI 40.0-49.9 Start:24-Jan-2020 Instruction Type:Provider Instructions for Treatment How to access health informa tion online Indication:Nonsmoker Start:05-Dec-2019 Instruction Type:Patient Education How to access health informa tion online - Detail Indication:Nonsmoker Start:05-Dec-2019 Instruction Type:Patient Education Patient Instructions Indication:Nonsmoker Start:05-Dec-2019 Instruction Type:Provider Instructions for Treatment How to access health informa tion online Indication:Sore throat Start:23-Mar-2019 Instruction Type:Patient Education How to access health informa tion online - Detail Indication:Sore throat Start:23-Mar-2019 Instruction Type:Patient Education Patient Instructions Indication:Sore throat Start:23-Mar-2019 Instruction Type:Provider Instructions for Treatment How to access health informa tion online Indication:Nonsmoker Start:02-Mar-2019 Instruction Type:Patient Education How to access health informa tion online - Detail Indication:Nonsmoker Start:02-Mar-2019 Instruction Type:Patient Education Patient Instructions Indication:Nonsmoker Start:02-Mar-2019 Instruction Type:Provider Instructions for Treatment Patient Instructions Indication:Upper respiratory infection, viral Start:18-Oct-2018 Instruction Type:Provider Instructions for Treatment How to access health informa tion online Indication:Nonsmoker Start:18-Oct-2018 Instruction Type:Patient Education How to access health informa tion online - Detail Indication:Nonsmoker Start:18-Oct-2018 Instruction Type:Patient Education How to access health informa tion online Indication:BMI 40.0-44.9, adult Start:05-May-2018 Instruction Type:Patient Education How to access health informa tion online - Detail Indication:BMI 40.0-44.9, adult Start:05-May-2018 Instruction Type:Patient Education Patient Instructions Indication:BMI 40.0-44.9, adult Start:05-May-2018 Instruction Type:Provider Instructions for Treatment How to access health informa tion online Indication:Nonsmoker Start:23-Feb-2018 Instruction Type:Patient Education How to access health informa tion online - Detail Indication:Nonsmoker Start:23-Feb-2018 Instruction Type:Patient Education Patient Instructions Indication:Nonsmoker Start:23-Feb-2018 Instruction Type:Provider Instructions for Treatment How to access health informa tion online Indication:BMI 40.0-44.9, adult Start:15-Feb-2018 Instruction Type:Patient Education How to access health informa tion online - Detail Indication:BMI 40.0-44.9, adult Start:15-Feb-2018 Instruction Type:Patient Education Patient Instructions Indication:Decreased range of motion of left lower extremity Start:15-Feb-2018 Instruction Type:Provider Instructions for Treatment How to access health informa tion online Indication:BMI 40.0-44.9, adult Start:14-Dec-2017 Instruction Type:Patient Education How to access health informa tion online - Detail Indication:BMI 40.0-44.9, adult Start:14-Dec-2017 Instruction Type:Patient Education Patient Instructions Indication:BMI 40.0-44.9, adult Start:14-Dec-2017 Instruction Type:Provider Instructions for Treatment How to access health informa tion online Indication:BMI 40.0-44.9, adult Start:11-Aug-2017 Instruction Type:Patient Education How to access health informa tion online - Detail Indication:BMI 40.0-44.9, adult Start:11-Aug-2017 Instruction Type:Patient Education Patient Instructions Indication:Acute asthma exacerbation (Renamed from Asthma with acute exacerbation) Start:11-Aug-2017 Instruction Type:Provider Instructions for Treatment How to access health informa tion online Indication:BMI 40.0-44.9, adult Start:10-Aug-2017 Instruction Type:Patient Education How to access health informa tion online - Detail Indication:BMI 40.0-44.9, adult Start:10-Aug-2017 Instruction Type:Patient Education Patient Instructions Indication:Acute asthma exacerbation (Renamed from Asthma with acute exacerbation) Start:10-Aug-2017 Instruction Type:Provider Instructions for Treatment How to access health informa tion online Indication:Cough Start:05-Aug-2017 Instruction Type:Patient Education How to access health informa tion online - Detail Indication:Cough Start:05-Aug-2017 Instruction Type:Patient Education Patient Instructions Indication:Cough Start:05-Aug-2017 Instruction Type:Provider Instructions for Treatment DISCONTINUED - LIPID PANEL ( 08162) Indication:SCREENING FOR HYPERLIPIDEMIA (Renamed from Encounter for screening for lipoid disorders) Start:06-May-2017 Instruction Type:Patient Education How to access health informa tion online Indication:Sinus pressure Start:06-May-2017 Instruction Type:Patient Education How to access health informa tion online - Detail Indication:Sinus pressure Start:06-May-2017 Instruction Type:Patient Education Patient Instructions Indication:Sinus pressure Start:06-May-2017 Instruction Type:Provider Instructions for Treatment How to access health informa tion online Indication:Flu-like symptoms Start:30-Mar-2017 Instruction Type:Patient Education How to access health informa tion online - Detail Indication:Flu-like symptoms Start:30-Mar-2017 Instruction Type:Patient Education Patient Instructions Indication:Flu-like symptoms Start:30-Mar-2017 Instruction Type:Provider Instructions for Treatment How to access health informa tion online Indication:Low back pain potentially associated with radiculopathy Start:02-Nov-2015 Instruction Type:Patient Education How to access health informa tion online - Detail Indication:Low back pain potentially associated with radiculopathy Start:02-Nov-2015 Instruction Type:Patient Education Patient Instructions Indication:Low back pain potentially associated with radiculopathy Start:02-Nov-2015 Instruction Type:Provider Instructions for Treatment How to access health informa tion online Indication:Wheezing (Renamed from Asthmatic breathing) Start:23-Jan-2014 Instruction Type:Patient Education How to access health informa tion online - Detail Indication:Wheezing (Renamed from Asthmatic breathing) Start:23-Jan-2014 Instruction Type:Patient Education Patient Instructions Indication:Wheezing (Renamed from Asthmatic breathing) Start:23-Jan-2014 Instruction Type:Provider Instructions for Treatment How to access health informa tion online Indication:Breast pain Start:12-Jan-2014 Instruction Type:Patient Education How to access health informa tion online - Detail Indication:Breast pain Start:12-Jan-2014 Instruction Type:Patient Education Patient Instructions Indication:Breast pain Start:12-Jan-2014 Instruction Type:Provider Instructions for Treatment Patient Instructions Indication:Acid reflux Start:31-Aug-2013 Instruction Type:Provider Instructions for Treatment Procedure Findings Note HNO ID: [id number] Author: Selma Rea Service: Gastroenterology Author Type: Physician Type: Brief Op Note Filed: 03/21/2019 4:35 PM Note Text: BRIEF OPERATIVE NOTE PATIENT NAME: Latia Moody LOG ID: [id number] Surgery Date: 03/21/2019 Surgeon(s) and Occupational Medicine Specialist(s): Rigo Rea MD -Primary Procedure(s): Procedure(s) (LRB): COLONOSCOPY (N/A) EGD WITH BIOPSY (N/A) Anesthesia: Procedural Sedation Findings: Normal EGD and colonoscopy Estimated Blood Loss: Minimal Specimens: Antral Preop Diagnosis: Functional dyspepsia [K30] LUQ pain [R10.12] Bright red rectal bleeding [K62.5] Change in bowel habit [R19.4] Postop Diagnosis: Functional dyspepsia [K30] LUQ pain [R10.12] Bright red rectal bleeding [K62.5] Change in bowel habit [R19.4] SIGNATURE: Rigo Rea MD DATE: March 21, 2019 TIME: 4:35 PM Reason for Referral Specialty Diagnoses / Procedures Referred By Contbritney t Referred To Contact Pulmonology Diagnoses Exertional dyspnea Procedures PFT spirometry with pre and post bronchodilator Jasmeet Sexton DO [address] [place] [address] Pulmonary Lab [address] [place] [address] Referral ID Status Reason Start Date Expiration Date V isits Requested Visits Authorized [id number] Authorized 12/29/2023 12/28/2024 1 1 Additional Source Comments INFORMATION SOURCE (unrecogn ized section and content) DATE CREATED AUTHOR 12/25/2017 [facility] DATE CREATED AUTHOR AUTHOR'S ORGANIZ ATION 05/05/2018 [facility] DATE CREATED AUTHOR AUTHOR'S ORGANIZ ATION 03/12/2019 [facility] DATE CREATED AUTHOR AUTHOR'S ORGANIZ ATION 08/12/2019 [facility] DATE CREATED AUTHOR AUTHOR'S ORGANIZ ATION 03/08/2020 [facility] DATE CREATED AUTHOR AUTHOR'S ORGANIZ ATION 05/25/2020 [facility] DATE CREATED AUTHOR AUTHOR'S ORGANIZ ATION 12/31/2023 [facility] DATE CREATED AUTHOR AUTHOR'S ORGANIZ ATION 02/07/2024 [facility] DATE CREATED AUTHOR AUTHOR'S ORGANIZ ATION 02/07/2024 [facility] Reason for Visit (unrecogniz ed section and content) Reason Comments Establish Care Reason Comments Shortness of Breath Care Teams (unrecognized sec tion and content) 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 This clinical summary was aggregated from multiple sources. Caution should be exercised in using it in the provision of clinical care. This summary normalizes information from multiple sources, and as a consequence, information in this document may materially change the coding, format and clinical context of patient data. In addition, data may be omitted in some cases. CLINICAL DECISIONS SHOULD BE BASED ON THE PRIMARY CLINICAL RECORDS. [facility] provides no warranty or guarantee of the accuracy or completeness of information in this document.
== END | disposition home or self-care (01) ==
LOC: CT 07:01
PROVIDERS: PCP Internal Medicine; Referring Provider Nurse Practitioner Family; Visit Provider Nurse Practitioner Family
DX: R10.9 Unspecified abdominal pain (principal)
CPT/HCPCS: 74177; Q9967

== ENCOUNTER 2024-04-05 13:54 | Day surgery (SDC) | payer OTHER, SELFPAY ==
[2024-04-05] VITALS (10 sets, daily range): BP systolic 98–141; BP diastolic 68–94; PULSE 74–92; RESP 16–18; TEMP 36.8–36.9; O2SAT 93–100; BMI 38.2
--- NOTE | 2024-04-05 14:11 | PCM.HP.BLA ---
History and Physical Date of Admission: 04/05/24 MANDA MOODY, is a 48 F who presents to the office today for follow up. EGD 03.17.22 LA Grade A reflux esophagitis. Biopsied. Medium-sized hiatal hernia. Non-bleeding gastric ulcer with no stigmata of bleeding. Biopsied. Normal second portion of the duodenum abd/pelvis CT 03.01.24 Ill-defined low-attenuation focus within the left kidney concerning for pyelonephritis. Colonic diverticulosis. Hiatal hernia. OV 03.21.24 pt reports a daily bm, diarrhea maybe once a week; denies blood in the stool. Pt reports that she takes omeprazole after dinner, but will still aspirate in the middle of the night. Pt reprts that for the past week she has felt like there is a lump or bubble in her throat when she is drinking liquids. ROS Const Constitutional: Positive for fatigue; No fever(s) or weight change ENT ENT: Positive for difficulty swallowing Gastro GI: Positive for bloating, diarrhea, heartburn, difficulty swallowing and excessive flatus; No abdominal pain, belching, change in bowel habits, change in stool character, coffee ground emesis, constipation, cramping, feeling full early, incontinent of stools, Vomiting blood/hematemesis, Blood in stool, loose stools, Black,tarry stools, nausea/dyspepsia, pain with swallowing, vomiting or other Musc Musculoskeletal: Positive for joint pain, joint swelling, stiffness, Arthritis and restless legs Skin Skin: Positive for dry skin, itchy eyes and rash; No yellowing of the eye Neuro Neurology: Positive for restless legs Psych Psychiatric: No anxiety and No depression Endo Endocrine: Positive for fatigue; No weight change Aller/Imm Allergy/Immunologic: Positive for itchy eyes Fabrice/Lymp Hematologic/Lymphatic: Positive for easy bruising; No easy bleeding Exam Const General: cooperative and comfortable Nutritional Appearance: obese Orientation: alert, awake and oriented x3 Assessment and Plan Assessment and Plan (1) GERD (gastroesophageal reflux disease): Status: Acute Plan: Differential diagnosis for her refractory reflux disease would be gastroesophageal reflux disease refractory to medical therapy, nonerosive reflux disease, hiatal hernia, gastroparesis, esophageal motility disorder. She will undergo EGD with evaluation of her GI tract with placement of Baig capsule and she will also undergo gastric emptying study. I have examined the patient and the H&P has been reviewed. There are no clinical changes since date of exam.
[2024-04-05 14:21] LABS: Internal QC Validated? YES +Cl - CLEAR BKGD; Pregnancy, Urine Negative Negative
--- NOTE | 2024-04-05 14:27 | PCM.HP.BLA ---
History and Physical Date of Admission: 04/05/24 WILLIAM MOODY, is a 48 F who presents to the office today for follow up. EGD 03.17.22 LA Grade A reflux esophagitis. Biopsied. Medium-sized hiatal hernia. Non-bleeding gastric ulcer with no stigmata of bleeding. Biopsied. Normal second portion of the duodenum abd/pelvis CT 03.01.24 Ill-defined low-attenuation focus within the left kidney concerning for pyelonephritis. Colonic diverticulosis. Hiatal hernia. OV 03.21.24 pt reports a daily bm, diarrhea maybe once a week; denies blood in the stool. Pt reports that she takes omeprazole after dinner, but will still aspirate in the middle of the night. Pt reprts that for the past week she has felt like there is a lump or bubble in her throat when she is drinking liquids. ROS Const Constitutional: Positive for fatigue; No fever(s) or weight change ENT ENT: Positive for difficulty swallowing Gastro GI: Positive for bloating, diarrhea, heartburn, difficulty swallowing and excessive flatus; No abdominal pain, belching, change in bowel habits, change in stool character, coffee ground emesis, constipation, cramping, feeling full early, incontinent of stools, Vomiting blood/hematemesis, Blood in stool, loose stools, Black,tarry stools, nausea/dyspepsia, pain with swallowing, vomiting or other Musc Musculoskeletal: Positive for joint pain, joint swelling, stiffness, Arthritis and restless legs Skin Skin: Positive for dry skin, itchy eyes and rash; No yellowing of the eye Neuro Neurology: Positive for restless legs Psych Psychiatric: No anxiety and No depression Endo Endocrine: Positive for fatigue; No weight change Aller/Imm Allergy/Immunologic: Positive for itchy eyes Fabrice/Lymp Hematologic/Lymphatic: Positive for easy bruising; No easy bleeding Exam Const General: cooperative and comfortable Nutritional Appearance: obese Orientation: alert, awake and oriented x3 Assessment and Plan Assessment and Plan (1) GERD (gastroesophageal reflux disease): Status: Acute Plan: Differential diagnosis for her refractory reflux disease would be gastroesophageal reflux disease refractory to medical therapy, nonerosive reflux disease, hiatal hernia, gastroparesis, esophageal motility disorder. She will undergo EGD with evaluation of her GI tract with placement of Baig capsule and she will also undergo gastric emptying study. CodingI have examined the patient and the H&P has been reviewed. There are no clinical changes since date of exam.
--- NOTE | 2024-04-05 15:04 | PRE.ANES_ITS ---
ASA Classification* ASA Classification ASA Classification: 2 Assessment & Plan Anesthesia* Anesthesia Assessment Anesthesia Assessment: Discussed sedation and/or anesthesia options, risks, benefits, and alternatives with patient/parents/legal guardian/POA. Questions invited. The patient/parents/legal guardian/POA seems to understand and agrees to proceed with anesthesia plan. Reviewed the physical assessment, medical history, allergy history and patient home medications list prior to surgery/procedure/anesthetic and documented any changes. Performed airway and anesthesia risk assessments. Anesthesia Type Anesthesia Type: MAC History Source History Obtained from:: Patient and Chart Anesthesia Focused Assessment* Temperature: 98.3 F Pulse Rate: 92 Blood Pressure: 141/94 Respiratory Rate: 18 Pulse Ox: 96 Oxygen Delivery Method: Room Air Airway Assessment Mouth opens: >3 cm Mallampati Score: I Teeth Condition: Missing (Missing right lower molar. Rest of the teeth are tight.) Neck Range of motion (ROM): Limited ROM (Slight decrease in extension) Focused Labs Anesthesia Preop lab: CBC WBC 7.2 K/mm3 (4.4-11.0) 01/28/24 09:33 RBC 5.09 M/mm3 (4.2-5.4) 01/28/24 09:33 Hgb 14.3 g/dL (12.0-15.0) 01/28/24 09:33 Hct 44.5 % (37-47) 01/28/24 09:33 Plt Count 278 K/mm3 (150-450) 01/28/24 09:33 CHEMISTRY Potassium 4.8 mmol/L (3.5-5.1) 01/28/24 09:33 Sodium 137 mmol/L (136-145) 01/28/24 09:33 BUN 11 mg/dL (7-18) 01/28/24 09:33 Creatinine 0.91 mg/dL (0.55-1.02) 01/28/24 09:33 Glucose 95 mg/dL (74-106) 01/28/24 09:33 COAG Urine Test Negative Negative 04/05/24 14:10 Tst Clinic Negative 10/29/23 11:50 Pre-Assessment Diagnosis/Proposed Procedure Planned Operative Procedure(s): EGD PH + Anesthesia History Anesthesia History - retail link analyst: Anesthesia History - retail link analyst Hx Hospitalization No 11/26/24 12:34 Any Problems With Anesthesia Yes: HARD TIME WAKING, WITH 03/29/24 12:34 LOCAL FELT EVERYTHING Cholinesterase deficiency No 03/29/24 12:34 You/Your Family Experience No 03/29/24 12:34 fever (hyperthermia) with Relationship Recent Exposure to Contagious No 04/05/24 14:26 Disease Does patient have nerve No 03/29/24 12:34 stimulator Patient instructed to have device shut off --Does patient have Pacemaker No 04/05/24 14:26 or ICD? When Was Last Pacemaker Check QUESTION #4 FULL TEXT: You/Your Family Experience fever (hyperthermia) with Anesthesia Last Oral Intake Last Oral intake: Last Oral Intake NPO since 08:00 04/05/24 14:26 Meds taken in AM with sips of Yes 04/05/24 14:26 water? Meds patient instructed to zyrtec, duloxetine, 04/05/24 14:26 take am of surgery multivitamin Any additional information?: Yes NPO since: 08:00 (Patient had black coffee at 8 AM.) PONV PONV - retail link analyst: PONV - retail link analyst Female Yes 03/29/24 12:34 HX of Motion Sickness Yes 03/29/24 12:34 HX of N/V After Surgery No 03/29/24 12:34 Non-Smoker Yes 03/29/24 12:34 Duration of Surgery greater No 03/29/24 12:34 than 60 minutes Number of Risk Factors 3 03/29/24 12:34 PONV Score Moderate Risk 03/29/24 12:34 Height & Weight Height & Weight: Anesthesia: Height & Weight Height 5 ft 2 in 04/05/24 14:26 Weight: 95 kg 04/05/24 14:26 Body Mass Index (BMI) 38.2 04/05/24 14:26 Respiratory Assessment Respiratory Assessment - retail link analyst: Respiratory Tract Infection Hx - retail link analyst Hx Respiratory Tract Infection No 03/29/24 12:34 STOP Sleep Apnea STOP Sleep Apnea - retail link analyst: STOP Sleep Apnea - retail link analyst Hx Hypertension No 03/29/24 12:34 Hx Sleep Apnea No 03/29/24 12:34 CPAP BIPAP Do you snore loudly (louder No 03/29/24 12:34 than talking or can be heard Do you often feel tired/ No 03/29/24 12:34 fatigued/ sleepy during daytime? Has anyone observed you stop No 03/29/24 12:34 breathing during sleep? STOP Results Negative 03/29/24 12:34 QUESTION #5 FULL TEXT : Do you snore loudly (louder than talking or can be heard through closed doors)? 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 Specify any problems Hx of Preganancy in last 3 N/A 03/29/24 12:34 Months Nurse Filling Out Transfusion NBUCHER 03/29/24 12:34 & Questions: Date: 03/29/24 03/29/24 12:34 Time: 12:36 03/29/24 12:34 Patient unable to answer at this time (ie. confused, unrespo /Reproduction History /Reproductive History - retail link analyst: /Reproductive Hx- retail link analyst Hx Now Gestational Age (in weeks): EDC: Hx Hx Para Hx Section SAB No 03/29/24 12:34 PFSH Medical History Post-menopausal TMJ arthritis History of echocardiogram DUB (dysfunctional uterine bleeding) Wears glasses Cancer Arthritis Anemia Injury of back Injury of head and neck Syncope Gastric reflux Former smoker Asthma History of edema GERD (gastroesophageal reflux disease) Hx of basal cell carcinoma Gastroenteritis Vomiting and diarrhea RLS (restless legs syndrome) Sleep disorder Neuropathy Blurred vision Unspecified asthma with (acute) exacerbation Mouth sores Acid reflux Low back pain Fibromyalgia Shortness of breath at rest Pneumonia due to COVID-19 virus COVID-19 Home Medications ?Medication ?Instructions ?Recorded ?Last Taken ?Type omeprazole 40 mg capsule,delayed 40 mg PO QHS #90 caps 03/17/19 03/30/24 History release albuterol sulfate 90 mcg/actuation 2 puff IH Q4H PRN SHORTNESS OF 03/14/20 Unknown Rx aerosol inhaler BREATH ##1 fluticasone propionate 50 2 spray NASAL DAILY 06/21/20 02/01/24 History mcg/actuation nasal spray,suspension duloxetine 30 mg capsule,delayed 30 mg PO DAILY 08/13/21 04/05/24 History release cetirizine 10 mg tablet (Zyrtec) 10 mg PO DAILY 12/25/21 04/05/24 History multivitamin (Daily Multi-Vitamin 1 tab PO DAILY 01/27/24 04/05/24 History tablet) peg 400-propylene glycol 0.4 %-0.3 1 drp EACH EYE DAILY PRN dry eye(s) 01/27/24 02/01/24 History % eye drops (Lubricant Eye (PG-PEG 400)) progesterone micronized 100 mg 100 mg PO .COMPLEX #30 caps 02/19/24 Unknown Rx capsule (Prometrium) rosuvastatin 10 mg tablet 10 mg PO QDAY 02/19/24 Unknown History Allergy/AdvReac Type Severity Reaction Status Date / Time Environmental Allergies: Allergy Other Verified 04/05/24 14:23 Uncoded (seasonal) codeine AdvReac Severe itchy, Verified 04/05/24 14:23 nausea Surgical History History of D&C History of esophagogastroduodenoscopy (EGD) Hx of knee surgery Hx of surgical procedure Hx of cholecystectomy History of delivery H/O rhinoplasty Social History household members: spouse current occupational status: unemployed Smoking Status: Former smoker alcohol intake: never substance use type: does not use diet: other what type of physical activity do you participate in: walking and yoga frequency: daily seatbelt use: always do you feel safe at home: Yes additional social history: [facility] Review of Systems (Anesthesia) ROS Narrative System reviewed and no additional complaints, except as documented.
--- NOTE | 2024-04-05 15:15 | EGD_PTH ---
PATIENT: MANDA MOODY LOC: EN U#:[id number] AGE/SX: 48/F ROOM: RE04/05/[address]: Dr. Francisco Montana DO : 1975 BED: DIS: 04/05/2024 SPEC #: [id number] RECD: 04/05/24 17:57 STATUS: SHANIA WARREN #: [id number] ASHLEIGH: 04/05/24 15:[address]: Francisco Montana DEPT: SURGICAL PATHOLOGY RECD BY: Demarcus Esparza ENTERED: 04/06/24 09:28 SP TYPE: EGD BIOPSY YESICA DR: Dr. Nancy Lucas DO Tissues: Esophagus, NOS Procedures: Special Stain Group I Surgery Specimen Level IV Alcian Blue/PAS (control) HEADER OPERATION: EGD with biopsy PRE-OP DIAGNOSIS: GERD TISSUE SUBMITTED: Distal esophagus biopsy MICROSCOPIC DIAGNOSIS Distal esophagus, biopsy: Gastroesophageal junction mucosa with mild chronic inflammation. Focal changes of reflux. No evidence of goblet cell metaplasia. See comment. AM. 04/07/2024 COMMENT Alcian blue/PAS stain with matched control supports the above diagnosis. MICROSCOPIC DESCRIPTION Slides are reviewed. GROSS DESCRIPTION Received in fixative is one container labeled with the patient's name and designated Distal esophagus biopsy. The specimen consists of two irregular fragments of light hansen soft tissue that in aggregate measure 1.0 x 0.2 x 0.1 cm. The specimen is totally submitted in one cassette. AM. 04/06/2024 TC:3 CPT:79765,07778
--- NOTE | 2024-04-05 16:19 | OP.CCLET_ITS ---
04/05/2024 Nancy Lucas [address] [place] [address] Re : Upper GI endoscopy procedure for Latia Jeffers Dear Dr. Lucas This procedure was performed on Friday, April 05, 2024. My impressions and recommendations are as follows: Impressions : - Non-severe reflux esophagitis with no bleeding. Biopsied. - No gross lesions in the entire stomach. - No gross lesions in the duodenal bulb. - The KU capsule was activated and then calibrated by submersion into the appropriate buffer solutions. - The KU pH capsule was positioned 36 cm from the incisors, which was 6 cm proximal to the GE junction. Recommendations : - Discharge patient to home. - Resume previous diet. - Continue present medications. - Await pathology results. My findings are described in the full procedure note, which is enclosed. If I can be of further assistance, please feel free to contact me at . Sincerely, Francisco Montana, 04/05/2024 4:18:47 PM This report has been signed electronically.
--- NOTE | 2024-04-05 16:19 | OP.EGD_ITS ---
Patient Name: Latia Jeffers Procedure Date: 04/05/2024 4:01 PM Date of : 1975 Age: 48 Procedure: Upper GI endoscopy Indications: Heartburn, Failure to respond to medical treatment Providers: Francisco Montana DO Referring MD: Nancy Lucas Medicines: Monitored Anesthesia Care Patient Profile: This is a 48 year old female. Refer to note in patient chart for documentation of history and physical. Patient has symptoms of chronic cough, chronic nausea and chronic throat burning. Complications: No immediate complications. Procedure: Pre-Anesthesia Assessment: - Prior to the procedure, a History and Physical was performed, and patient medications and allergies were reviewed. The patient is competent. The risks and benefits of the procedure and the sedation options and risks were discussed with the patient. All questions were answered and informed consent was obtained. Patient identification and proposed procedure were verified by the physician in the pre-procedure area. Mental Status Examination: alert and oriented. Airway Examination: normal oropharyngeal airway and neck mobility. Respiratory Examination: clear to auscultation. CV Examination: normal. Prophylactic Antibiotics: The patient does not require prophylactic antibiotics. Prior Anticoagulants: The patient has taken no anticoagulant or antiplatelet agents except for NSAID medication. ASA Grade Assessment: II - A patient with mild systemic disease. After reviewing the risks and benefits, the patient was deemed in satisfactory condition to undergo the procedure. The anesthesia plan was to use monitored anesthesia care (MAC). Immediately prior to administration of medications, the patient was re-assessed for adequacy to receive sedatives. The heart rate, respiratory rate, oxygen saturations, blood pressure, adequacy of pulmonary ventilation, and response to care were monitored throughout the procedure. The physical status of the patient was re-assessed after the procedure. After obtaining informed consent, the endoscope was passed under direct vision. Throughout the procedure, the patient's blood pressure, pulse, and oxygen saturations were monitored continuously. The Endoscope was introduced through the mouth, and advanced to the second part of duodenum. The upper GI endoscopy was accomplished without difficulty. The patient tolerated the procedure well. Scope In: 4:07:24 PM Scope Out: 4:13:00 PM Total Procedure Duration Time 0 hours 5 minutes 36 seconds Findings: Non-severe esophagitis with no bleeding was found 33 to 35 cm from the incisors. Biopsies were taken with a cold forceps for histology. Verification of patient identification for the specimen was done. Estimated blood loss was minimal. The KU capsule was activated and then calibrated by submersion into the appropriate buffer solutions. The KU capsule with delivery system was introduced through the mouth and advanced into the esophagus, such that the KU pH capsule was positioned 36 cm from the incisors, which was 6 cm proximal to the GE junction. Suction was applied to the well of the KU pH capsule to suck in the adjacent mucosa of the esophagus using the external vacuum pump set at a minimum vacuum pressure of 550 mmHg for 30 seconds. The KU pH capsule was then deployed by depressing the plunger on top of the handle to advance the locking pin into the mucosa, thereby attaching the capsule to the esophagus. The plunger was then rotated a quarter turn clockwise to release the capsule from the delivery system. The delivery system was then withdrawn. Endoscopy was utilized for probe placement and diagnostic evaluation. No gross lesions were noted in the entire examined stomach. No gross lesions were noted in the duodenal bulb. Impression: - Non-severe reflux esophagitis with no bleeding. Biopsied. - No gross lesions in the entire stomach. - No gross lesions in the duodenal bulb. - The KU capsule was activated and then calibrated by submersion into the appropriate buffer solutions. - The KU pH capsule was positioned 36 cm from the incisors, which was 6 cm proximal to the GE junction. Recommendation: - Discharge patient to home. - Resume previous diet. - Continue present medications. - Await pathology results. Procedure Code(s): --- Professional --- 88516, Esophagogastroduodenoscopy, flexible, transoral; with biopsy, single or multiple CPT copyright 2021 [employer]. All rights reserved. The codes documented in this report are preliminary and upon handkerchief maker review may be revised to meet current compliance requirements. Francisco Montana DO 04/05/2024 4:18:47 PM This report has been signed electronically. Number of Addenda: 0 Note Initiated On: 04/05/2024 4:01 PM
--- NOTE | 2024-04-05 16:23 | PCM.POST.ANE ---
Anesthesia: Postop Eval I Current Vital Signs Temperature: 98.4 F Pulse Rate: 81 Blood Pressure: 100/80 Respiratory Rate: 16 Pulse Ox: 94 Oxygen Delivery Method: Room Air Assessment Airway patent: Yes Spontaneous unlabored respirations: Yes Mental status: Awake and Calm nausea: Yes Vomiting: No Anesthesia Complication: No Fluid Hydration Crystalloid volume administer (ml): 30 Total IV fluid infused: 30 Progress Note Anesthesia document: Postop Eval 1 completed: Yes
--- NOTE | 2024-04-05 16:47 | EKG12_ITS ---
Test Reason : O Blood Pressure : */* mmHG Vent. Rate : 80 BPM Atrial Rate : 80 BPM P-R Int : 128 ms QRS Dur : 78 ms QT Int : 374 ms P-R-T Axes : 37 5 15 degrees QTcB Int : 431 ms Normal sinus rhythm Normal ECG When compared with ECG of 28-Jan-2024 09:15, No significant change was found Confirmed by Silverio Worley ([id number]), managing editor RAFI RICO ([id number]) on 04/06/2024 8:43:05 AM Referred By: Nancy Lucas Confirmed By: Silverio Worley
--- NOTE | 2024-04-05 17:19 | POSTOPAN2_ITS ---
Anesthesia Postop Eval I Sum Postop Eval Completion status Anesthesia document: Postop Eval 1 completed: Yes Anesthesia Postop Eval I Summary Anesthesia Postop Eval I Summary: Anesthesia Postop Eval I: Assessment Summary Airway patent Yes 04/05/24 16:24 [email or web address] Spontaneous unlabored Yes 04/05/24 16:24 [email or web address] respirations Mental status Awake,Calm 04/05/24 16:24 [email or web address] nausea Yes 04/05/24 16:24 [email or web address] Vomiting No 04/05/24 16:24 [email or web address] Anesthesia Postop Eval I: Fluid Summary Crystalloid volume administer 30 04/05/24 16:24 [email or web address] (ml) Colloids volume administered ( ml) Blood Product volume administered (ml) Total IV fluid infused 30 04/05/24 16:24 [email or web address] Anesthesia Postop Eval I: Summary Notes Anesthesia Complication No 04/05/24 16:24 [email or web address] Anesthesia Complication Comment: Post-operative progress note Anesthesia: Postop Eval II Evaluation Mental status: Awake and Calm Pain Level: 0 nausea: No Vomiting: No Progress Note Post-operative progress note: Patient complained of chest pain in PACU. Twelve- lead EKG was done. This showed normal sinus rhythm. Patient had some ice and the chest pain seem to dissipate. Complications Anesthesia Complication: No
== END 2024-04-05 17:41 | disposition home or self-care (01) ==
LOC: EN 13:56 → AC 13:56
PROVIDERS: Anesthesiology; PCP Internal Medicine; Referring Provider Internal Medicine; Visit Provider Internal Medicine Gastroenterology
PROC: (CPT 43235; principal; 2024-04-05 15:10)
DX: K21.00 Gastro-esophageal reflux disease with esophagitis, without bleeding (principal)
CPT/HCPCS: 43235; 81025; 88305; 88312; 93005; A4216; J2405

== ENCOUNTER 2024-08-23 14:37 | Emergency (ER) | payer OTHER, SELFPAY ==
[2024-08-23 14:38] VITALS: BP 138/97; PULSE 85; RESP 18; TEMP 36.4; O2SAT 99; BMI 41.8
[2024-08-23 15:08] LABS: Absolute Lymphocyte Count 2.68 X10^3/uL (0.83-4.51); Absolute Neutrophil Count 5.4 X10^3/uL (2.0-7.7); Basophil# 0.06 X10^3/uL; Basophil% 0.7 % (0-1); Eosinophils% 2.2 % (0-5); Hematocrit 39.9 % (37-47); Hemoglobin 13.2 g/dL (12.0-15.0); Lymphocyte # 2.68 X10^3/ul (0.83-4.51); Lymphocyte % 29.8 % (19-41); Mean Corp Hgb Conc 33.1 g/dL (32-36); Mean Corpuscular Hgb 28.7 pg (27.0-32.0); Mean Corpuscular Volume 86.7 fL (81-99); Mean Platelet Vol. 10.6 fl (6.2-12.0); Monocyte% 6.7 % (0-10); NRBC Flagged by Analyzer 0 % (0-5); Neutrophil # 5.42 X10^3/uL (2.7-7.7); Neutrophil % 60.2 % (47-70); Platelet Count 282 K/mm3 (150-450); RBC Distribution Width CV 12.9 % (11.6-14.6); RBC Distribution Width SD 40.2 fl (35.1-43.9)
--- NOTE | 2024-08-23 15:10 | RAD_ITS ---
PROCEDURE: CHEST 1 VIEW (PORTABLE) 08/23/2024 REASON FOR EXAM: CHEST PAIN TECHNIQUE: Frontal view of the chest. COMPARISON: None FINDINGS: Hardware: None Heart: The heart size is normal. Lungs: The lungs are clear. Bones: The bones are unremarkable. Other: RAD/Chest 1 View (Portable) IMPRESSION: Negative Chest. Reading Location: [place] [id number]
--- NOTE | 2024-08-23 15:43 | ED.VIS.CHEST ---
HPI History of Present Illness Chief Complaint: Chest Pain Informant: patient and spouse/S.O. Narrative Narrative: 49-year-old female presenting to the emergency room with chief complaint of chest pain. Patient states that around noon she was on a hike and developed a right sided pain in her chest. She finished her hike. She states that it then moved up towards her neck and her jaw bilaterally. She notes that she feels short of breath but not particularly different. There was a sharp component to her chest pain. She notes that she is on progesterone the first several days of the month. Non-smoker. No history of diabetes hypertension high cholesterol. No nausea vomiting. No cough or fever. No prior DVT or PE. No recent surgery or travel. No known malignancy. Patient notes that she was recently wearing a Holter monitor for episodes of dizziness. She had a reaction to the adhesive so they are sending her some new adhesive to complete the evaluation. [facility] Medical History Post-menopausal TMJ arthritis History of echocardiogram DUB (dysfunctional uterine bleeding) Wears glasses Cancer Arthritis Anemia Injury of back Injury of head and neck Syncope Gastric reflux Former smoker Asthma History of edema GERD (gastroesophageal reflux disease) Hx of basal cell carcinoma Gastroenteritis Vomiting and diarrhea RLS (restless legs syndrome) Sleep disorder Neuropathy Blurred vision Unspecified asthma with (acute) exacerbation Mouth sores Acid reflux Low back pain Fibromyalgia Shortness of breath at rest Pneumonia due to COVID-19 virus COVID-19 Home Medications ?Medication ?Instructions ?Recorded ?Last Taken ?Type fluticasone propionate 50 2 spray NASAL DAILY 06/21/20 08/22/24 History mcg/actuation nasal spray,suspension duloxetine 30 mg capsule,delayed 30 mg PO DAILY 08/13/21 08/22/24 History release multivitamin (Daily Multi-Vitamin 1 tab PO DAILY 01/27/24 08/22/24 History tablet) progesterone micronized 100 mg 100 mg PO .COMPLEX #30 caps 02/19/24 08/22/24 Rx capsule (Prometrium) rosuvastatin 10 mg tablet 10 mg PO QDAY 02/19/24 08/22/24 History famotidine 40 mg tablet 40 mg PO DAILY 08/23/24 08/22/24 History fexofenadine 180 mg tablet 180 mg PO DAILY 08/23/24 08/23/24 History levocetirizine 5 mg tablet (24HR 5 mg PO DAILY 08/23/24 08/22/24 History Allergy Relief) magnesium 250 mg tablet 500 mg PO DAILY 08/23/24 08/22/24 History omeprazole 40 mg capsule,delayed 40 mg PO DAILY 08/23/24 08/23/24 History release Allergy/AdvReac Type Severity Reaction Status Date / Time Environmental Allergies: Allergy Other Verified 08/23/24 14:38 Uncoded (seasonal) codeine AdvReac Severe itchy, Verified 08/23/24 14:38 nausea Surgical History History of D&C History of esophagogastroduodenoscopy (EGD) Hx of knee surgery Hx of surgical procedure Hx of cholecystectomy History of delivery H/O rhinoplasty Social History household members: spouse current occupational status: unemployed Smoking Status: Former smoker alcohol intake: never substance use type: does not use diet: other what type of physical activity do you participate in: walking and yoga frequency: daily seatbelt use: always do you feel safe at home: Yes additional social history: - [employer] [facility] Constitutional Constitutional ED: Denies chills, fever(s) or weight loss Eyes Eyes: Denies change in vision or diplopia ENT ENT ED: Denies ear pain, rhinorrhea or sore throat Cardiovascular Cardiovascular: Reports as per HPI and chest pain; Denies orthopnea, palpitations or racing heartbeat Respiratory/Chest Respiratory/Chest: Reports dyspnea; Denies cough or orthopnea Gastrointestinal Gastrointestinal: Denies abdominal pain, diarrhea, nausea or vomiting Genitourinary Genitourinary ED: Denies dysuria, hematuria or urinary frequency Musculoskeletal Musculoskeletal: Denies arthralgias or myalgias Integumentary Denies abscess or rash Neurologic Neurologic: Denies headache(s) or weakness Psychiatric Psychiatric: Denies anxiety, depression, suicidal ideation or suicidal thoughts Endocrine Endocrinology: Denies polydipsia, polyphagia or polyuria Allergic/Immunologic Allergic/Immunologic ED: Denies mouth swelling, tongue swelling or urticaria EXAM Physical Exam Const Vital Signs: 08/23/24 14:38 08/23/24 15:48 08/23/24 15:49 Temperature 97.5 F L Temperature Source Temporal Pulse Rate 85 Respiratory Rate 18 Respiratory Effort Normal Non-Labored Blood Pressure 138/97 H Blood Pressure Mean 110 Pulse Ox 99 Oxygen Delivery Method Room Air Room Air 08/23/24 15:52 08/23/24 16:00 08/23/24 17:00 Temperature Temperature Source Pulse Rate 71 70 74 Respiratory Rate 15 17 15 Respiratory Effort Blood Pressure 150/88 H Blood Pressure Mean 108 Pulse Ox 100 Oxygen Delivery Method Room Air Room Air Positive well nourished and well developed General Appearance ED: well developed HEENT Reports normocephalic, head/scalp atraumatic and moist mucous membranes Eyes PERRL and EOMs intact bilaterally Neck no lymphadenopathy, supple and no JVD Resp normal respiratory effort and clear to auscultation bilaterally Cardio regular rate, regular rhythm and no murmurs GI normal to inspection, nondistended, normoactive bowel sounds and non-tender Palpation: soft Back/Spine no CVA tenderness and normal ROM Extremity normal to inspection General Extremety ED: Negative for edema General Extremity: Negative for edema Neuro oriented x3 and CN's II-XII intact bilaterally Sensorium / Orientation: alert Motor Exam: strength 5/5 throughout Psych mental status grossly normal Mood & Affect: Negative for depressed or tearful Skin no rashes or lesions noted and no wounds Heart Score History: Moderately Suspicious ECG: Normal Age: >45 - <65 years Risk Factors: 1 or 2 Risk Factors Troponin: </= Normal Limit Score: 3 MDM MDM MDM Narrative Medical decision making narrative: Differential diagnosis includes but not limited to acute coronary syndrome pulmonary embolism aortic dissection pneumothorax dehydration anemia GERD bronchospasm 2 sets of cardiac enzymes are less than 6. EKG is normal sinus with no concerning ST segments. Normal BMP and CBC. My independent interpretation of the chest x-ray is no acute process normal mediastinal silhouette. Patient's heart score is 3. I believe the patient can be discharged home with instructions to follow-up for further cardiac evaluation. Her noted understanding of the plan patient to return if worsening or concerns History & Record Review Discussion w/independent historian: Patient and Significant other Additional record(s) reviewed:: Prior ED visit and Prior labs Lab Data Attestation: I reviewed the patient's lab results. Labs: Laboratory Results - last 24 hr 08/23/24 08/23/24 08/23/24 14:54 16:08 16:42 WBC 9.0 RBC 4.60 Hgb 13.2 Hct 39.9 MCV 86.7 MCH 28.7 MCHC 33.1 RDW Std Deviation 40.2 RDW Coeff of Constanza 12.9 Plt Count 282 MPV 10.6 Immature Gran % (Auto) 0.400 Neut % (Auto) 60.2 Lymph % (Auto) 29.8 [place] % (Auto) 6.7 Eos % (Auto) 2.2 Baso % (Auto) 0.7 Absolute Neuts (auto) 5.4 Absolute Lymphs (auto) 2.68 Nucleated RBC % 0 D-Dimer Quant (PE/DVT) 0.39 Sodium 141 Potassium 3.7 Chloride 105 Carbon Dioxide 24.2 Anion Gap 12 BUN 13 Creatinine 0.82 Estim Creat Clear Calc 91.62 Est GFR (MDRD) Non-Af 86 BUN/Creatinine Ratio 15.2 Glucose 85 Calcium 9.3 Troponin T High Sens < 6 Troponin T Hi Sens 2 Hr < 6 Radiography Diagnostic Testing: Clinical Impression(s) from Imaging Studies Chest X-Ray 08/23/24 15:10 IMPRESSION: Negative Chest. Reading Location: [place] [id number] EKG Initial EKG: Attestation: I personally reviewed and interpreted this EKG as follows: Comments: Normal sinus rhythm ventricular rate of 67 bpm Discharge Plan Triage Chief Complaint: Chest Pain ED Provider: Wayne Rodríguez Dx/Rx/DC Orders Clinical Impression: Chest pain Instructions: ED Chest Pain, Uncertain Cause Prescriptions: No Action duloxetine 30 mg capsule,delayed release(DR/EC) 30 mg PO DAILY rosuvastatin 10 mg tablet 10 mg PO QDAY progesterone micronized [Prometrium] 100 mg capsule 100 mg PO .COMPLEX Qty: 30 5RF Rx Instructions: 100 mg orally QHS fluticasone propionate 1 SPRAY spray,suspension 2 spray NASAL DAILY multivitamin [Daily Multi-Vitamin] Tablet 1 tab PO DAILY magnesium 250 mg tablet 500 mg PO DAILY famotidine 40 mg tablet 40 mg PO DAILY fexofenadine 180 mg tablet 180 mg PO DAILY levocetirizine [24HR Allergy Relief] 5 mg tablet 5 mg PO DAILY omeprazole 40 mg capsule,delayed release(DR/EC) 40 mg PO DAILY Primary Care Provider: Nancy Lucas Referrals: Nancy Lucas, DO [Primary Care Provider] - As soon as possible Activity Restrictions/Additional Instructions: Please call your primary care doctor and let them know you are in the emergency room for chest pain evaluation. It is recommended that you obtain outpatient stress testing. Should your symptoms return or worsen please return to emergency for further evaluation Print Language: Sami Disposition Disposition: Home, Self Care Discharge Date/Time: 08/23/24 17:58
[2024-08-23 15:52] VITALS: BP 150/88; PULSE 71; RESP 15; O2SAT 100
[2024-08-23 16:00] VITALS: PULSE 70; RESP 17
[2024-08-23 16:06] LABS: Anion Gap 12 (5-15); BUN 13 mg/dL (4-19); BUN/Creat Ratio 15.2 RATIO (10-20); Calcium,Total 9.3 mg/dL (7.6-11.0); Carbon Dioxide 24.2 mmol/L (21.0-32.0); Chloride 105 mmol/L (98-108); Creatinine, Serum 0.82 mg/dL (0.70-1.20); EST Glomerular Filtration Rate 86 (>60); Estimated Creatinine Clearance 91.62 ml/min (50-250); Glucose 85 mg/dL (70-99); Potassium 3.7 mmol/L (3.3-5.1); Sodium Level 141 mmol/L (133-145); Troponin T High Sensitivity < 6 ng/L (<=14)
[2024-08-23 16:35] LABS: D-Dimer Quantitative (DVT/PE) 0.39 FEU/ug/m (0.27-0.49)
[2024-08-23 17:00] VITALS: PULSE 74; RESP 15
[2024-08-23 17:13] LABS: Troponin T High Sens 2 HR < 6 ng/L (<=14)
== END 2024-08-23 17:58 | disposition home or self-care (01) ==
PROVIDERS: Emergency Provider Emergency Medicine; PCP Internal Medicine; Visit Provider Emergency Medicine
DX: R07.9 Chest pain, unspecified (principal); Z87.891 Personal history of nicotine dependence; J45.909 Unspecified asthma, uncomplicated; Z79.51 Long term (current) use of inhaled steroids; K21.9 Gastro-esophageal reflux disease without esophagitis; Z79.899 Other long term (current) drug therapy; Z90.49 Acquired absence of other specified parts of digestive tract
CPT/HCPCS: 71045; 80048; 84484; 85025; 85379; 93005; 99283; A4216